=== PATIENT | male | born 1945 | race Caucasian/White ===

== ENCOUNTER 2020-11-24 11:32 | Outpatient (RCR) | payer MEDICARE, SELFPAY ==
[2020-11-24] MEDS: COVID-19 VACC, MRNA(PFIZER)/PF 30 MCG/0.3 ML SYRINGE IM (18:26)
[2020-12-15] MEDS: COVID-19 VACC, MRNA(PFIZER)/PF 30 MCG/0.3 ML SYRINGE IM (18:07)
== END 2021-02-28 23:59 ==
LOC: IMMUN 11:32
PROVIDERS: PCP Family Medicine; Visit Provider Family Medicine
DX: Z23 Encounter for immunization (principal)
CPT/HCPCS: 0001A; 0002A; 91300

== ENCOUNTER → 2021-05-11 12:42 | Outpatient (CLI) | payer MEDICARE, OTHER, SELFPAY ==
--- NOTE | 2021-05-11 12:49 | MRI_ITS ---
STUDY: MRI LUMBAR SPINE WITHOUT CONTRAST REASON FOR EXAM: Male, 76 years old. BACK PAIN and rt hip TECHNIQUE: Standardized fat and water weighted pulse sequences were obtained in the sagittal and axial planes. COMPARISON: None FINDINGS: T12-L1: Normal endplates. Mild disc desiccation. Normal bilateral facet joints. Normal central canal and bilateral lateral recesses. Normal bilateral intervertebral neural foramina. There is straightening of the normal lumbar lordosis. There is a levoscoliosis of the lumbar spine centered on L2. 1 cm rightward listhesis of L1 on L2. 4 mm leftward listhesis of L2 on L3. 6 mm leftward listhesis of L3 on L4. 4 mm leftward listhesis of L4 on L5. Normal conus medullaris that terminates at the level of L1. L1-2: Endplate edema. Disc bulge. Mild facet arthrosis. Crowded right lateral recess with mild to moderate right neural foraminal stenosis. No significant spinal canal stenosis. L2-3: Endplate edema. Disc bulge. Moderate right and mild left facet arthrosis. Carotid bilateral recess with mild to moderate neural foraminal stenosis. No spinal canal stenosis. L3-4: Endplate edema. Disc bulge. Moderate right and [id number] left facet arthrosis. Mild right neural foraminal stenosis. No spinal canal stenosis. L4-5: Normal endplates. Disc bulge. Moderate right and mild left facet arthrosis. Left lateral recess crowding and mild to moderate left neural foraminal stenosis. No spinal canal stenosis. L5-S1: Endplate edema. Disc bulge. Mild to moderate bilateral facet arthrosis. Moderate left and mild right neural foraminal stenosis. No spinal canal stenosis. Normal visualized sacral ala. Mild fatty infiltration of the paraspinous muscles. Partially demonstrated left renal cyst. MRI/Spine Lumbar (Routine) IMPRESSION: Extensive degenerative disease and levoscoliosis detailed above, including moderate neural foraminal stenosis on the right at L2-3 and L4-5, and on the left at L5-S1. No significant spinal canal stenosis. Electronically Signed: Russell Stanton MD at 6:19 EDT Tel , Service support ,
== END ==
PROVIDERS: PCP Physician Assistant; Referring Provider Anesthesiology Pain Medicine; Visit Provider Anesthesiology Pain Medicine
DX: M54.9 Dorsalgia, unspecified (principal); M79.606 Pain in leg, unspecified
CPT/HCPCS: 72148

== ENCOUNTER 2022-09-28 14:30 | Outpatient (RCR) | payer MEDICARE, OTHER, SELFPAY ==
--- NOTE | 2022-08-10 13:54 | HP.PTEVAL ---
Patient's Visit Information NAVA HEALY is a 77 year old M referred to Physical Therapy by HARI Nunez with a diagnosis of Parkinson's. Date of Evaluation: 08/10/22 Physical Therapist: MARY Solis - Visit Plan Frequency: 2x /Week Duration: 6 Weeks Plan: 2X/ week for 3 weeks for mat LB stretches and postural stretches, core stability, increase HR, dual tasking, gait training with HEP - Subjective In the several months his Dr and him have discussed PD as a diagnosis but can not get into see a neurologist in December. Pt is struggling with walking (walks with a golf club), spinal arthritis, skin disorders now, excessive drooling, double vision, itchy weeping eyes, Lots of joint problems. With day to day function he struggles with ambulation but sitting is even moderate pain. Until recently he would get back pain relief but not any more. Pt can not walk as long because he can not stand up straight because it hurts his back... with bending fw he has strain on the muscles of the back. Pt has a cat rescue and has 14 steps and chores to do. Stairs: He has a railing and goes up recip and goes down recip with a hand rail. Pt uses a golf club to walk up straight and does not want to use a cane to become dependent on it. He feels that sit to stand is ok for him. He has some exertion to get out of a car. He is still driving and lives alone. He does not do any exercises at this point. No PD meds. He has a tremor when he is trying to do something. 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 He struggles to roll over in bed. He does stretch his LB at home. He gets chiro adjustments now but that does not help now. - Pain LBP Pain Intensity (Out of 10): 5 - Objective Gait: Walks with decrease stride length, decrease arm swing, likes to shuffle his feet. LE MMT: R: hip flex 15.3, knee ext 22.3, knee flex 16.1. L: hip flex 14.3, knee ext 27.6, knee flex 12.6. Sit to [employer] insights lead 30 seconds: X 12. TU.71. 4 square: 11.36. Stairs: up and down stairs recip with 1 hand rail. FGA: 19. Dual tasking: standing opp arm and leg.... X 10 on each side with no mess up - Balance/Special Test Scores Functional Gait Assessment Score: 19 % Disability: 36.6700 Lower Extremity Functional Score: 21 - Goals Goal 1:: I HEP Goal Time Frame: 6-8 Weeks Goal 2:: Decrease back pain Goal Time Frame: 6-8 Weeks Goal 3:: Be able to walk with bigger longer strides and increase arm swing with not catching his feet. Goal Time Frame: 6-8 Weeks Goal 4:: Decrease TUG time to decrease fall risk Goal Time Frame: 6-8 Weeks - Rehabilitation Potential Rehabilitation Potential: Good - Anticipated Interventions Patient/Client Instruction: Educate patient on: Condition, Plan of Care For the Purpose of:: To decrease pain, To increase ROM, To improve nutrient delivery to tissue, To improve muscle performance and motor function, To improve ability to perform ADL's, To increase tolerance to activity/condition/position, To improve performance and independence with ADL's, To decrease level of supervision to perform tasks, To improve ability of physical actions for home/community/work/leisure, To improve gait and locomotor functions, To improve health of tissue, To decrease soft tissue restriction, To increase flexibility/ROM, To improve endurance, To improve balance, To improve safety with gait, To assume or resume ADL's Therapeutic Exercise to Include: Strength training, Endurance training, Balance training, Coordination, Body mechanics, Postural training, Flexibilty training, Gait and locomotor training, Neuromotor development, Passive ROM, Active ROM, Dynamic Lumbar Stabilization, Scapular Strength/Stabilization For the Purpose of:: To decrease pain, To increase ROM, To improve nutrient delivery to tissue, To increase oxygenation perfusion, To improve muscle performance and motor function, To improve ability to perform ADL's, To increase tolerance to activity/condition/position, To improve performance and independence with ADL's, To decrease level of supervision to perform tasks, To improve ability of physical actions for home/community/work/leisure, To improve gait and locomotor functions, To improve health of tissue, To decrease soft tissue restriction, To increase flexibility/ROM, To improve endurance, To improve balance, To improve safety with gait Functional Training to Include: Gait training For the Purpose of:: To decrease pain, To increase ROM, To improve nutrient delivery to tissue, To improve muscle performance and motor function, To improve ability to perform ADL's, To increase tolerance to activity/condition/position, To improve performance and independence with ADL's, To improve gait and locomotor functions, To improve health of tissue, To decrease soft tissue restriction, To increase flexibility/ROM, To improve endurance, To improve balance Thank you for the opportunity to evaluate your patient. For Medicare and Medicare HMO plans, please review the plan of care and approve it. It will need to be FAXED BACK to us at [phone] for Medicare purposes. For Medicare only, by signing this I certify the plan of care. Please let me know if there are questions or concerns regarding this plan of care. Physician Signature: Date:
--- NOTE | 2022-09-07 15:41 | HP.PTREVAL ---
HARI Nunez, It has been my pleasure to treat NAVA HEALY over the last 7 visits for Parkinson's. Please see the progress note below for an update on the physical therapy plan of care! Subjective: Pt is frustrated as he is not any better and he can not see the neurologist until December. He wants to add massage to his plan through self pay and do the massage and the PT in combination and see if it helps. He feels he has an underline back issue and the PD posture is not helping the situation. Objective/Function: Gait: Walk with flexed trunk decreased trunk rotation and no arm swing. He does walk more upright when cued to squeeze his shoulder blades together. Tu.41 Plan Plan: Continue to advance mat LB stretches and postural stretches, core stability, increase HR, dual tasking, gait training with HEP Balance/Gait/Functional tests - Balance/Special Test Scores Functional Gait Assessment Score: 19 % Disability: 36.6700 Lower Extremity Functional Score: 25 Goals Goal 1:: I HEP Goal Time Frame: 6-8 Weeks Goal Progress: Progressing Goal 2:: Decrease back pain Goal Time Frame: 6-8 Weeks Goal Progress: Not Progressing Goal 3:: Be able to walk with bigger longer strides and increase arm swing with not catching his feet. Goal Time Frame: 6-8 Weeks Goal 4:: Decrease TUG time to decrease fall risk (10.17) at eval Goal Time Frame: 6-8 Weeks Anticipated Interventions Patient/Client Instruction: Educate patient on: Condition, Plan of Care For the Purpose of:: To decrease pain, To increase ROM, To improve nutrient delivery to tissue, To improve muscle performance and motor function, To improve ability to perform ADL's, To increase tolerance to activity/condition/position, To improve performance and independence with ADL's, To decrease level of supervision to perform tasks, To improve ability of physical actions for home/community/work/leisure, To improve gait and locomotor functions, To improve health of tissue, To decrease soft tissue restriction, To increase flexibility/ROM, To improve endurance, To improve balance, To improve safety with gait, To assume or resume ADL's Therapeutic Exercise to Include: Strength training, Endurance training, Balance training, Coordination, Body mechanics, Postural training, Flexibilty training, Gait and locomotor training, Neuromotor development, Passive ROM, Active ROM, Dynamic Lumbar Stabilization, Scapular Strength/Stabilization For the Purpose of:: To decrease pain, To increase ROM, To improve nutrient delivery to tissue, To increase oxygenation perfusion, To improve muscle performance and motor function, To improve ability to perform ADL's, To increase tolerance to activity/condition/position, To improve performance and independence with ADL's, To decrease level of supervision to perform tasks, To improve ability of physical actions for home/community/work/leisure, To improve gait and locomotor functions, To improve health of tissue, To decrease soft tissue restriction, To increase flexibility/ROM, To improve endurance, To improve balance, To improve safety with gait Functional Training to Include: Gait training For the Purpose of:: To decrease pain, To increase ROM, To improve nutrient delivery to tissue, To improve muscle performance and motor function, To improve ability to perform ADL's, To increase tolerance to activity/condition/position, To improve performance and independence with ADL's, To improve gait and locomotor functions, To improve health of tissue, To decrease soft tissue restriction, To increase flexibility/ROM, To improve endurance, To improve balance Please do not hesitate to contact me at [phone] by phone or if you have questions or concerns regarding this new plan of care! Sincerely, Rebecca Valadez MPT
--- NOTE | 2022-09-28 15:06 | HP.PTDCSUM ---
It has been my pleasure to treat NAVA HEALY referred by HARI Nunez, with the diagnosis of Parkinson's for a total of 11 visit(s). Discharge Date: 09/28/22 Please see the following information for a summary of their discharge status. Subjective: Pt reports that he is no better. He has a neurologist appt in December and his back bothers him everyday and now his L hand and wrist. He went to an ortho Dr and he referred him to a pain specialist for injections in his L hand and wrist. Pt had an appt with the arthritis Dr and he did not go to them cause they do not deal with PD. Nobody looked at the idea that he has RA. LBP Pain Intensity (Out of 10): 8 Whole Body Discomfort Pain Intensity (Out of 10): 6 L hand pain Pain Intensity (Out of 10): 0 % Improvement: 0 Objective/Function: TU:07 (which is worse than when started PT). Sit to stand: needs to use UE and is difficult at times to stand up due to pain and weakness per subjective. Gait: walks with short strides with an upside down golf club. Pt is limited in progress by daily pain. He complains of back pain and now L wrist pain. Goal 1:: I HEP Goal Progress: Progressing Goal 2:: Decrease back pain Goal Progress: Not Progressing Goal 3:: Be able to walk with bigger longer strides and increase arm swing with not catching his feet. Goal Progress: Progressing Goal 4:: Decrease TUG time to decrease fall risk (10.17) at eval Goal Progress: Not Progressing Plan: DC PT back to physician Discharge Comments: DC PT back to physician. Pt is no better. If there are questions or concerns regarding this patient's physical therapy, please feel free to call me at [phone]. Thank you for the referral of this patient. Sincerely, Rebecca Valadez, MPT Balance/Gait/Functional tests - Balance/Special Test Scores Functional Gait Assessment Score: 19 % Disability: 36.6700 Lower Extremity Functional Score: 23
== END 2022-09-28 15:46 | disposition home or self-care (01) ==
LOC: PT 14:30
PROVIDERS: PCP Physician Assistant; Referring Provider Physician Assistant; Visit Provider Physician Assistant
DX: R25.9 Unspecified abnormal involuntary movements (principal)
CPT/HCPCS: 97110; 97161; 97530

== ENCOUNTER 2023-03-18 15:00 | Outpatient (RCR) | payer MEDICARE, OTHER, SELFPAY ==
--- NOTE | 2023-02-20 19:14 | HP.PTEVAL ---
Patient's Visit Information NAVA HEALY is a 77 year old M referred to Physical Therapy by Dr. Jordan Casas MD with a diagnosis of PD. Date of Evaluation: 02/20/23 Physical Therapist: MARY Solis - Visit Plan Frequency: 2x /Week Duration: 2 Months Plan: 2X/ week for 8 weeks for neutral spine core stability, hip flexor stretches and Quad stretches in prone, Prone prop back and neck extension stretches, postural exercises, gait training posture with detailed HEP to have full HEP starting with a few exercises each visit - Subjective Pt tried many things for his back including 12 injections with no pain. His main problem is his flexion posture and he wants to measure his FW flexion posture and wants to see if he will get any measurable improvement. His last injection was about a month ago and did not help at all. He has not really done any exercises that we did here in the past. He has pain when he is walking. He rates it as a 8/10. His pain across his Lower to mid back and around pelvis to thighs. Pt has about 4-5/10 pain in sitting. He has no N&T in the legs. - Pain back pain Pain Intensity (Out of 10): 5 Pain Intensity Range: 8 Comment: in sitting/ walking - Objective Gait: walks with flexed trunk, short stride, decreased heel to toe gait pattern, decreased trunk rotation and arm swing. Pt struggles with heel and toe raises (about 1/2 normal ROM). Standing up against the wall his R shoulder is 7 inches from the wall with knees as extended as possible. Standing up tall the pt struggles with getting his knees straight as well. Sit to stand: able but has to use chair seat and struggles and struggles with first standing balance. Trunk AROM: Standing up against the wall his R shoulder is 7 inches from the wall with knees as extended as possible, flexion to his B mid shins. LE MMT: R hip flex 11.1 and L 10.1 with arms at sides. R knee ext 12.3 and L 10.8. R knee flex 8.3 and L 5.5. R hip abd in s/L 4.8 and L 3.2. FGA: 19. Extreme tightness in B hip flexors/Quads. Tight DF - Balance/Special Test Scores Functional Gait Assessment Score: 19 % Disability: 36.6700 Lower Extremity Functional Score: 31 - Goals Goal 1:: I HEP Goal Time Frame: 6-8 Weeks Goal 2:: Increase LE strength (R hip flex 11.1 and L 10.1 with arms at sides. R knee ext 12.3 and L 10.8. R knee flex 8.3 and L 5.5. R hip abd in s/L 4.8 and L 3.2). Goal Time Frame: 6-8 Weeks Goal 3:: Increase posture to be able to stand up straighter against the wall with knees straight (at eval 7 inches from the wall shoulder) Goal Time Frame: 6-8 Weeks Goal 4:: Increase flexibility of B hip flexors Goal Time Frame: 6-8 Weeks Goal 5:: Decrease back pain to 2/10 with sitting Goal Time Frame: 6-8 Weeks - Rehabilitation Potential Rehabilitation Potential: Good - Anticipated Interventions Patient/Client Instruction: Educate patient on: Condition, Plan of Care For the Purpose of:: To decrease pain, To increase ROM, To improve nutrient delivery to tissue, To improve muscle performance and motor function, To improve ability to perform ADL's, To increase tolerance to activity/condition/position, To improve performance and independence with ADL's, To decrease level of supervision to perform tasks, To improve ability of physical actions for home/community/work/leisure, To improve gait and locomotor functions, To improve health of tissue, To decrease soft tissue restriction, To increase flexibility/ROM, To improve safety with gait Therapeutic Exercise to Include: Strength training, Balance training, Body mechanics, Postural training, Flexibilty training, Gait and locomotor training, Neuromotor development, Dynamic Lumbar Stabilization, Scapular Strength/Stabilization For the Purpose of:: To decrease pain, To increase ROM, To increase oxygenation perfusion, To improve muscle performance and motor function, To improve ability to perform ADL's, To increase tolerance to activity/condition/position, To improve performance and independence with ADL's, To decrease level of supervision to perform tasks, To improve ability of physical actions for home/community/work/leisure, To improve gait and locomotor functions, To improve health of tissue, To decrease soft tissue restriction, To increase flexibility/ROM, To improve endurance, To improve balance Functional Training to Include: Gait training For the Purpose of:: To improve gait and locomotor functions Thank you for the opportunity to evaluate your patient. For Medicare and Medicare HMO plans, please review the plan of care and approve it. It will need to be FAXED BACK to us at [phone] for Medicare purposes. For Medicare only, by signing this I certify the plan of care. Please let me know if there are questions or concerns regarding this plan of care. Physician Signature: Date:
--- NOTE | 2023-03-18 15:37 | HP.PTDCSUM ---
It has been my pleasure to treat NAVA HEALY referred by Dr. Jordan Casas MD, with the diagnosis of PD for a total of 6 visit(s). Discharge Date: 03/18/23 Please see the following information for a summary of their discharge status. Subjective: Pt reports that he his discomfort with his legs and LB. 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 He is going to do some resting and then start back on a program with Passive Exercises and then got o active to strengthening. He thinks that therapy irritated him more and he pays for it for a few days. Even passive stretching irritates him. He wants to take a break and see if he can calm down his pain at home with his own therapy at home. back pain Pain Intensity (Out of 10): 5 % Improvement: 20 Objective/Function: LE strength: R hip flex 7.2 and L 8.4 with arms at sides. R knee ext 19.4 and L 21.3. R knee flex 14.4 and L 11.5. R hip abd in s/L 12.4 and L 13.2. Standing up against the wall 7 inches away from the wall at the shoulder Goal 1:: I HEP Goal Progress: Goal Met Goal 2:: Increase LE strength (R hip flex 11.1 and L 10.1 with arms at sides. R knee ext 12.3 and L 10.8. R knee flex 8.3 and L 5.5. R hip abd in s/L 4.8 and L 3.2). Goal Progress: Goal Met Goal 3:: Increase posture to be able to stand up straighter against the wall with knees straight (at eval 7 inches from the wall shoulder) Goal Progress: Not Progressing Goal 4:: Increase flexibility of B hip flexors Goal Progress: Not Progressing Goal 5:: Decrease back pain to 2/10 with sitting Goal Progress: Goal Met Plan: Pt will Dr Morton in about a week and he will tell him his plan to rest for a week or two and see if that reduces his pain and then build on PROM to AROM to strengthening. ISABEL PT back to Dr Arshad Comments: ISABEL PT If there are questions or concerns regarding this patient's physical therapy, please feel free to call me at [phone]. Thank you for the referral of this patient. Sincerely, Rebecca Valadez, MPT Balance/Gait/Functional tests - Balance/Special Test Scores Functional Gait Assessment Score: 19 % Disability: 36.6700 Lower Extremity Functional Score: 36
== END 2023-03-18 19:00 | disposition home or self-care (01) ==
LOC: PT 15:00
PROVIDERS: PCP Physician Assistant; Referring Provider Anesthesiology Pain Medicine; Visit Provider Anesthesiology Pain Medicine
DX: M48.07 Spinal stenosis, lumbosacral region (principal)
CPT/HCPCS: 97110; 97161; 97530

== ENCOUNTER → 2023-11-18 | Outpatient (CLI) | payer MEDICARE, OTHER, SELFPAY ==
--- NOTE | 2023-11-18 14:45 | MRI_ITS ---
EXAM: MR LUMBAR SPINE WITHOUT INTRAVENOUS CONTRAST CLINICAL INDICATION: LOW BACK PAIN TECHNIQUE: Multiplanar and multisequence MR images of the lumbar spine without intravenous contrast. COMPARISON: No relevant prior studies available. FINDINGS: VERTEBRAE: Partially visualized degenerative changes in the cervical spine with straightening of the cervical lordosis, multilevel facet arthrosis, uncovertebral joint, and endplate osteophytosis, multilevel disc bulges with at least mild multilevel spinal canal and neural foraminal stenosis. Scoliotic curvature of the spine is identified. No spondylolysis or spondylolisthesis. No acute fracture. Multilevel endplate degenerative signal changes. SPINAL CORD: No significant abnormality. Normal position and signal intensity of the conus medullaris. SOFT TISSUES: No significant abnormality. KIDNEYS AND URETERS: Bilateral renal cysts are present for which no follow-up is indicated. STOMACH AND BOWEL: Diverticulosis. No overwhelming evidence of diverticulitis. REPRODUCTIVE: Prostatomegaly with prostate heterogeneity. DISCS/SPINAL CANAL/NEURAL FORAMINA: T12-L1: No significant abnormality. No significant spinal canal or neural foraminal stenosis. L1-L2: Disc height loss and disc desiccation. Disc bulge with superimposed central disc herniation and moderate facet arthrosis. Mild spinal canal stenosis and moderate right greater than left neural foraminal narrowing. L2-L3: Disc height loss and disc desiccation. Endplate osteophytosis and facet arthrosis. Disc bulge. Mild to moderate spinal canal stenosis, moderate right greater than left neural foraminal narrowing, and at least abutment of the right L3 nerve root. L3-L4: Disc height loss and disc desiccation. Endplate osteophytosis and facet arthrosis. Central disc herniation superimposed upon a disc bulge resulting in moderate spinal canal stenosis. Facet arthrosis contributes to moderate bilateral neural foraminal narrowing with right L3 nerve root impingement. Disc bulge with superimposed central disc herniation and moderate bilateral facet arthrosis. Moderate spinal canal stenosis. Mild to moderate bilateral neural foraminal narrowing. L4-L5: Disc bulge with superimposed left subarticular to foraminal disc herniation and severe bilateral facet arthrosis. Mild to moderate spinal canal stenosis. Moderate to severe left and moderate right neural foraminal narrowing. Left L4 and L5 nerve root impingement. L5-S1: Disc height loss and disc desiccation. Disc bulge. Moderate bilateral facet arthrosis. Mild spinal canal stenosis and severe bilateral neural foraminal narrowing. Bilateral L5 nerve root impingement. MRI/Spine Lumbar (Routine) IMPRESSION: 1. Scoliotic curvature and multilevel degenerative changes resulting in multilevel spinal canal and neural foraminal stenosis. Right L3, left L4, and bilateral L5 nerve root impingement impingement. Recommend spine surgery consultation. 2. Partially visualized degenerative changes in the cervical spine with straightening of the cervical lordosis, multilevel facet arthrosis, uncovertebral joint, and endplate osteophytosis, multilevel disc bulges with at least mild multilevel spinal canal and neural foraminal stenosis. If there is any for more detailed evaluation, dedicated imaging of the cervical spine is recommended. 3. Scoliotic curvature of the spine is identified. This should be correlated with examination and potentially weightbearing radiographs. 4. Prostatomegaly with prostate heterogeneity. Follow-up as clinically indicated. 5. Diverticulosis. No overwhelming evidence of diverticulitis. Electronically Signed: Sushant Masters DO at 0:17 EST ,
== END | disposition home or self-care (01) ==
LOC: MRI 14:32
PROVIDERS: PCP Physician Assistant; Referring Provider Orthopaedic Surgery; Visit Provider Orthopaedic Surgery
DX: M54.50 Low back pain, unspecified (principal)
CPT/HCPCS: 72148

== ENCOUNTER 2024-05-18 01:07 | Emergency (ER) | payer MEDICARE, OTHER, SELFPAY ==
[2024-05-18 01:09] VITALS: BP 111/91; PULSE 129; RESP 20; TEMP 36.7; O2SAT 98; BMI 17.2
--- NOTE | 2024-05-18 01:30 | RAD_ITS ---
INDICATION: pain MULTIPLE FALLS OVER LAST COUPLE DAYS EXAMINATION/TECHNIQUE: X-RAY - XR Pelvis 1 or 2 Views COMPARISON: No relevant prior comparison study available FINDINGS: No fracture demonstrated. Femoral heads are normal in contour. No dislocation at the hips. Degenerative changes at the lower lumbar spine. RAD/Pelvis 1 or 2 Views IMPRESSION: No evidence of fracture. Electronically Signed: Nicole Sommer MD at 4:58 EDT ,
--- NOTE | 2024-05-18 01:30 | RAD_ITS ---
INDICATION: pain MULTIPLE FALLS OVER LAST COUPLE DAYS EXAMINATION/TECHNIQUE: X-RAY - XR Spine Thoracic 3 Views COMPARISON: FINDINGS: The vertebral bodies are normal in height. No definite fracture demonstrated. No subluxation. Mild curvature convex right. No paravertebral soft tissue mass identified. RAD/Thoracic Spine 3 Views IMPRESSION: No evidence of fracture or subluxation. Electronically Signed: Nicole Sommer MD at 5:00 EDT ,
[2024-05-18] MEDS: 0.9% Normal Saline (1000mL) 1,000 ML 999 ML IV (01:38)
[2024-05-18 01:49] LABS: Absolute Lymphocyte Count 1.21 X10^3/uL (0.83-4.51); Absolute Neutrophil Count 6.5 X10^3/uL (2.0-7.7); Basophil% 1.2 % (0-1); Eosinophil# 0.07 X10^3/uL; Eosinophils% 0.8 % (0-5); Hematocrit 42.5 % (40-54); Hemoglobin 13.9 g/dL (13.0-16.5); Lymphocyte # 1.21 X10^3/ul (0.83-4.51); Lymphocyte % 14.3 % (19-41); Mean Corp Hgb Conc 32.7 g/dL (32-36); Mean Corpuscular Hgb 32.9 pg (27.0-32.0); Mean Corpuscular Volume 100.7 fL (80-94); Mean Platelet Vol. 10.1 fl (6.2-12.0); Monocyte# 0.51 X10^3/uL; NRBC Flagged by Analyzer 0 % (0-5); Neutrophil # 6.54 X10^3/uL (2.7-7.7); Neutrophil % 77.3 % (47-70); Platelet Count 254 K/mm3 (150-450); RBC Distribution Width CV 12.7 % (11.6-14.6); RBC Distribution Width SD 47.1 fl (35.1-43.9); Red Blood Count 4.22 M/mm3 (4.6-6.2); White Blood Count 8.5 K/mm3 (4.4-11.0)
--- NOTE | 2024-05-18 02:00 | RAD_ITS ---
INDICATION: pain MULTIPLE FALLS OVER LAST COUPLE DAYS EXAMINATION/TECHNIQUE: X-RAY - LEFT XR Femur Min 2 Views 4 VIEWS COMPARISON: No relevant prior comparison study available FINDINGS: BONES: No fracture demonstrated. JOINTS: No dislocation. SOFT TISSUES: Unremarkable. RAD/Femur Min 2 Views IMPRESSION: No evidence of fracture. Electronically Signed: Nicole Sommer MD at 4:59 EDT ,
[2024-05-18 02:14] LABS: Anion Gap 4 (5-15); BUN 18 mg/dL (7-18); BUN/Creat Ratio 14.5 RATIO (10-20); Calcium,Total 9.3 mg/dL (8.5-10.1); Chloride 106 mmol/L (98-107); Creatinine, Serum 1.24 mg/dL (0.70-1.30); EST Glomerular Filtration Rate 60 mL/min (>60); Est Glom Filt Rate - Afr Amer 72 mL/min (>60); Glucose 118 mg/dL (74-106); Magnesium 2.7 mg/dL (1.6-2.6); Potassium 4.3 mmol/L (3.5-5.1); Sodium Level 140 mmol/L (136-145)
[2024-05-18 03:08] VITALS: BP 155/99; PULSE 92; RESP 18; O2SAT 92
--- NOTE | 2024-05-18 03:41 | EDS_ITS ---
HPI History of Present Illness Chief Complaint: General Illness Informant: patient and EMS Narrative Narrative: Patient is a 79-year-old male with past medical history of Parkinson's disease. He states he does not take medication for it as he cannot deal with the side effects. He also has a history of hypothyroidism. He states he has been having increasing bouts of generalized weakness and difficulty walking. He reports that yesterday he was trying to go up the stairs while holding a few of his cats and he lost his balance and fell backwards striking the left side of his body against a wall. He denies striking his head or any loss of consciousness or history of bleeding disorder or blood thinner use. He states he has had pain in the left shoulder region as well as the left hip/leg. He reports that since that time he has had even further difficulty ambulating/getting around his house and therefore EMS was contacted [facility] Medical History (Updated 05/19/24 @ 02:[address] 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 Home Medications ?Medication ?Instructions ?Recorded ?Last Taken ?Type eekbfay-wckwcswibcjeo-ybrjgowz 250 1 tab PO ONCE 09/06/22 Unknown History mg-250 mg-65 mg tablet (Excedrin Extra Strength) levothyroxine 50 mcg tablet 50 mcg PO DAILY 05/18/24 Unknown History Allergy/AdvReac Type Severity Reaction Status Date / Time No Known Allergies Allergy Verified 05/18/24 01:09 Family History Other Arthritis Cancer Social History Smoking Status: Former smoker alcohol intake: never substance use type: does not use what type of physical activity do you participate in: none ROS ROS ED Constitutional Constitutional ED: Denies chills or fever(s) Eyes Eyes: Denies blurry vision or change in vision ENT ENT ED: Denies sore throat Cardiovascular Cardiovascular: Denies chest pain or palpitations Respiratory/Chest Respiratory/Chest: Denies cough or dyspnea Gastrointestinal Gastrointestinal: Denies abdominal pain, diarrhea, nausea or vomiting Genitourinary Genitourinary ED: Denies dysuria Musculoskeletal Musculoskeletal: Reports back pain and myalgias; Denies neck pain Integumentary Denies Abrasions or rash Neurologic Neurologic: Reports weakness; Denies headache(s) or paresthesias Hematologic/Lymphatic Hematologic/Lymphatic: Denies easy bleeding or easy bruising EXAM Physical Exam Const Vital Signs: 05/18/24 03:08 Pulse Rate 92 Respiratory Rate 18 Blood Pressure 155/99 H Blood Pressure Mean 117 Pulse Ox 92 Oxygen Delivery Method Room Air Positive well developed, cachectic and unkempt General Appearance ED: unkempt, well developed and cachectic; Negative for pallor Nutritional Appearance: cachectic HEENT Reports dry mucous membranes HEENT Narrative: Normocephalic atraumatic No signs of depressed or basilar skull fracture Mouth ED: Yes dry mucous membranes Mouth: dry mucous membranes Eyes PERRL and EOMs intact bilaterally General Eye ED: Negative for scleral icterus Neck supple Neck Narrative: No bony deformity or step-off of the cervical spine no midline tenderness to palpation Chest Wall palpation of chest normal Chest Narrative: No bony deformity or crepitance noted Resp normal respiratory effort and clear to auscultation bilaterally Resp Narrative: Breath sounds are diminished throughout but overall clear to auscultation without signs of respiratory distress Cardio regular rhythm Rate: tachycardic and other Other Details: Tachycardic rate with regular rhythm GI normal to inspection, nondistended, normoactive bowel sounds, non-tender, non- distended and no masses Auscultation: normoactive bowel sounds Palpation: soft Back/Spine Back/Spine Narrative: No bony deformity or step-off of the thoracic or lumbar spine. There is pain on palpation of the upper lumbar vertebral region. No overlying abrasions or ecchymosis Extremity Extremity Narrative: Pelvis is stable there is no shortening or external rotation of either lower extremity. There is no obvious bony deformity or joint effusion. There is full passive range of motion without pain. Active range of motion is decreased secondary to weakness. Compartments are soft and compressible going against compartment syndrome. No ligamentous or tendon laxity noted Neuro oriented x3 and CN's II-XII intact bilaterally Sensorium / Orientation: alert Psych Psych Narrative: Patient has a flat affect Appearance: unkempt Skin no rashes or lesions noted Skin Narrative: No abrasions or ecchymosis No overlying erythema or warmth to suggest infection General Skin Exam: Negative for jaundice or pallor MDM MDM MDM Narrative Medical decision making narrative: Patient arrived to the ER mildly tachycardic but otherwise with stable vitals. He reported that he has been having increasing generalized weakness and therefore differential diagnosis could be related to acute kidney injury versus severe electrolyte abnormality or hypothyroidism as he does have a history of this as well as physical exam findings consistent with dehydration. He did not strike his head or have loss of consciousness he is not on a blood thinner nor has a history of bleeding disorder so I felt no need for head or cervical spine CT. with pain in the mid upper back there is concern for thoracic compression fracture and with pain in the left leg there is concern for pubic rami fracture versus femoral neck fracture versus dislocation. X-rays were obtained which revealed no acute findings. Lab work showed no clinically significant lab abnormalities. After IV hydration the patient did report feeling better and his vital signs improved. He was able to ambulate with a steady gait in the ER by himself. Therefore at this time as he does not have XOCHITL or clinically significant electrolyte abnormality there are no signs of trauma on exam or imaging and he is able to ambulate there is no need for admission and he will be discharged home EMS did report patient lives in [facility] and the patient is asking for potential help with his activities of daily living and therefore social work consult will be placed. History & Record Review Discussion w/independent historian: EMS personnel and Patient Lab Data Attestation: I reviewed the patient's lab results. Labs: Laboratory Results - last 24 hr 05/18/24 01:43 Sodium 140 Potassium 4.3 Chloride 106 Carbon Dioxide 30.0 Anion Gap 4 L BUN 18 Creatinine 1.24 Estim Creat Clear Calc 38.40 Est GFR (MDRD) Af Amer 72 Est GFR (MDRD) Non-Af 60 BUN/Creatinine Ratio 14.5 Glucose 118 H Calcium 9.3 Magnesium 2.7 H TSH 1.140 Radiography Diagnostic Testing: Clinical Impression(s) from Imaging Studies Pelvis X-Ray 05/18/24 01:30 IMPRESSION: No evidence of fracture. Electronically Signed: Nicole Sommer MD at 4:58 EDT , Thoracic Spine X-Ray 05/18/24 01:30 IMPRESSION: No evidence of fracture or subluxation. Electronically Signed: Nicole Sommer MD at 5:00 EDT , Femur X-Ray 05/18/24 02:00 IMPRESSION: No evidence of fracture. Electronically Signed: Nicole Sommer MD at 4:59 EDT , 1 view pelvis x-ray as interpreted by the emergency medicine physician reveals osteoarthritic changes without acute fracture or dislocation Left femur x-ray as interpreted by the emergency medicine physician also reveals osteoarthritic changes without fracture or dislocation or joint effusion Thoracic spine x-ray as interpreted by the emergency medicine physician reveals osteoarthritic changes without compression fracture or spondylolisthesis Discharge Plan Triage Chief Complaint: General Illness ED Provider: Todd Burnham Dx/Rx/DC Orders Clinical Impression: Parkinsons disease, Generalized weakness, Mild dehydration Instructions: Parkinson Disease Mobility Tips, ED Weakness (Uncertain Cause) Prescriptions: No Action Excedrin Extra Strength 250-250-65 mg tablet 1 tab PO ONCE levothyroxine 50 mcg tablet 50 mcg PO DAILY Primary Care Provider: Basilio Abraham Referrals: Basilio Abraham PA [Primary Care Provider] - Print Language: Macedonian Disposition Disposition: Home, Self Care Discharge Date/Time: 05/18/24 04:18
== END 2024-05-18 04:18 | disposition home or self-care (01) ==
PROVIDERS: Emergency Provider Emergency Medicine; PCP Physician Assistant; Visit Provider Emergency Medicine
DX: E86.0 Dehydration (principal); G20.A1 Parkinson's disease without dyskinesia, without mention of fluctuations; M54.9 Dorsalgia, unspecified; M25.512 Pain in left shoulder; M25.552 Pain in left hip; E03.9 Hypothyroidism, unspecified; M18.12 Unilateral primary osteoarthritis of first carpometacarpal joint, left hand; Z87.891 Personal history of nicotine dependence
CPT/HCPCS: 72072; 72170; 73552; 80048; 83735; 84443; 85025; 96360; 96361; 99283; J7030; A4216

== ENCOUNTER 2025-04-04 22:05 | Inpatient (IN) | payer MEDICARE, OTHER, SELFPAY ==
[2025-04-04 22:06] VITALS: BP 104/90; PULSE 126; RESP 28; TEMP 36.6; O2SAT 99; BMI 16.4
--- NOTE | 2025-04-04 22:10 | EKG12_ITS ---
Test Reason : DYSRHYTHMIA Blood Pressure : */* mmHG Vent. Rate : 85 BPM Atrial Rate : 85 BPM P-R Int : 152 ms QRS Dur : 110 ms QT Int : 392 ms P-R-T Axes : 43 44 11 degrees QTcB Int : 466 ms Sinus rhythm with occasional Premature ventricular complexes Possible Left atrial enlargement Incomplete right bundle branch block Borderline ECG Confirmed by Jr Call ([id number]), editor publications OLGA HOOD ([id number]) on 04/05/2025 1:11:38 PM Referred By: RAFA Confirmed By: Jr Call
[2025-04-04 23:05] VITALS: BP 132/97; PULSE 86; RESP 17; O2SAT 98
--- OUTSIDE RECORDS SUMMARY | 2025-04-04 23:50 | XMS RPT_ITS | CCD ---
Author Organization [facility] Care Team Providers Care Sketch Artist Name Role Phone Abraham PA-CBasilio Primary Care Provider Abraham PA, PA Basilio QiuMaximilian Primary Care Provider Abraham PA, PA Basilio Yao Referring Provider HARI Kyle Attending Provider Dr. Mikael Chapman Attending Provider MD Dino Huffman Attending Provider Abraham PA-C, Basilio Yao Primary Care Provider [phone] Abraham PA, PA Basilio QiuMaximilian Primary Care Provider [phone] Abraham PA, PA Basilio Yao Referring Provider Dr. Eddi Larson Attending Provider Dr. Mikael Chapman Attending Provider Jarad NORIEGA-C, Basilio Yao Primary Care Provider Arbaham PA, M Maximilian Primary Care Unavailable Mikael Chapman Attending Unavailable Eddi Larson Referring Unavailable Abraham PABasilio Primary Care Unavailable Eddi Larson Attending Unavailable Abraham PA, M Maximilian Primary Care Unavailable Todd Burnham Attending Unavailable Abraham PA, M Maximilian Primary Care Unavailable Abraham PA M Maximilian Referring Unavailable Eddi Larson Attending Unavailable Lenin LABORER GOLF COURSE.Viola STORY Primary Care Provider Bryceagen LABORER GOLF COURSE.TRADE EMBALMER, Viola Primary Care Provider Abraham PA-CHawa Primary Care Provider Unavailable Suppan LABORER GOLF COURSE.JEZ, Shakila Jha Unavailable Salvador Justin MD Unavailable Suppan LABORER GOLF COURSE.TRADE EMBALMER, Shakila A Unavailable [phone] Suppan LABORER GOLF COURSE.TRADE EMBALMER, Shakila A Unavailable [phone] Suppan LABORER GOLF COURSE.JEZ, Shakila A Unavailable Salvador Justin MD Unavailable [phone] HAAGEN, VIOLA Attending Unavailable HAAGEN, VIOLA Primary Care Unavailable HAAGEN, VIOLA Attending Unavailable HAAGEN, VIOLA Primary Care Unavailable HAAGEN, VIOLA Attending Unavailable HAAGEN, VIOLA Primary Care Unavailable HAAGEN, VIOLA Attending Unavailable HAAGEN, VIOLA Primary Care Unavailable HAAGEN, VIOLA Referring Unavailable HAAGEN, VIOLA Primary Care Unavailable HAAGEN, VIOLA Attending Unavailable ABRAHAMHAWA Primary Care Unavailable HAAGEN, VIOLA Referring Unavailable HAAGEN, VIOLA Primary Care Unavailable KIRSTIN ALDRIDGE Attending Unavailable ABRAHAMHAWA Referring Unavailable HAAGEN, VIOLA Primary Care Unavailable ABRAHAMHAWA Referring Unavailable ABRAHAMHAWA Primary Care Unavailable HAAGEN, VIOLA Attending Unavailable HAAGEN, VIOLA Primary Care Unavailable Allergies Allergy Classification Reported Allergen(s) Allergy Type Date of Onset Reaction(s) Facility (20 sources) Banana Extract; Translations: [BANANA] Drug Allergy 10-13-2018 GI Upset [facility] Work Phone: Medications Current Medications Medication Drug Class(es) Dates Sig (Normalized) Sig (Original) acetaminophen 250 mg / aspirin 250 mg / caffeine 65 mg oral tablet (20 sources) Platelet Aggregation Inhibitor, Nonsteroidal Anti-inflammatory Drug, Central Nervous System Stimulant, Methylxanthine Start: 09-06-2022 take 1 tablet by mouth once Aspirin-Acetamin ophen-Caffeine (Excedrin Extra Strength) 250-250-65 mg tablet Active 1 TABLET PO ONCE September 06, 2022 12:00am End: 03-08-2022 take 1 tablet by mouth every six hours as needed Zixquwk-Kaypydnkrlkju-Qynlbehi (EXCEDRIN ) 250-250-65 mg per tablet Take 1 tablet by mouth every 6 hours as needed. Active Comment on above: Take 1 tablet by vinny th every 6 hours as needed. levothyroxine sodium 0.05 mg oral tablet (20 sources) l-Thyroxine Start: take 13 ug by mouth once daily Levothyroxine Active 13 MCG PO DAILY August 02, 2022 12:00am Start: 01-25-2020 End: 10-14-2024 take 1 tablet by mouth once daily in the morning for thyroid dysfunction levothyroxine (SYNTHROID) 50 mcg tablet Indications: Acquired hypothyroidism take 1 tablet by mouth every morning ON AN EMPTY STOMACH FOR THYROID 90 tablet 1 10/14/2024 Active Comment on above: take 1 tablet by vinny th every morning ON AN EMPTY STOMACH FOR THYROID methylPREDNISolone (2 sources) Corticosteroid Start: 2023 End: 2023 methylPREDNISolone (MEDROL, LUCIANO,) 4 mg Dose-Pack Indications: Lumbar foraminal stenosis , Chronic pain syndrome Follow dosing instructions, take with food. 21 tablet 0 12/30/2023 01/05/2024 Active Comment on above: Follow dosing instru ctions, take with food. mirtazapine 15 mg oral tablet (3 sources) Start: 2024 take 1 tablet by mouth once daily at bedtime mirtazapine (REMERON) 15 mg tablet Indications: Chronic pain syndrome Take 1 tablet by mouth daily at bedtime. 30 tablet 1 01/20/2025 Active tiZANidine 2 mg oral tablet (4 sources) Central alpha-2 Adrenergic Agonist Start: 2024 End: 2024 take 1 tablet by mouth twice daily as needed tiZANidine (ZANAFLEX) 2 mg tablet Indications: Chronic pain syndrome , Lumbar foraminal stenosis Take 2 tablets by mouth two times a day as needed (for pain). 30 tablet 1 02/19/2025 Active Vitamin B Complex (20 sources) vitamin B comple x (B COMPLEX ORAL) Take by mouth. Active vitamin B comple x (B COMPLEX ORAL) Take by mouth. 0 Active Comment on above: Take by mouth. Completed/Discontinued Medications Medication Drug Class(es) Dates Sig (Normalized) Sig (Original) baclofen 10 mg oral tablet (2 sources) gamma-Aminobutyric Acid-ergic Agonist Start: 05-21-2023 End: 06-11-2023 take 1 tablet by mouth every eight hours as needed baclofen 10 mg tablet Take 1 tablet by mouth three times daily as needed (muscle spasms). 90 tablet 2 05/21/2023 06/11/2023 Discontinued (Side Effects) Comment on above: Take 1 tablet by vinny th three times daily as needed (muscle spasms). carbidopa 25 mg / levodopa 100 mg oral tablet (9 sources) Aromatic Amino Acid Decarboxylation Inhibitor, Aromatic Amino Acid Start: 07-29-2023 End: 12-02-2023 carbidopa-levodopa (SINEMET) 25-100 mg per tablet Indications: Parkinsonian features , Unstable gait Take 1/2 tablet 4PM, 8PM and MN. If no side effects and no improvement of symptoms after 1 week, then recommend increasing does to 1 tablet at 4PM, 8PM and MN. 90 tablet 2 07/29/2023 12/02/2023 Discontinued Start: 12-27-2022 End: 07-29-2023 take 1 tablet by mouth three times daily carbidopa-levodopa (SINEMET) 25-100 mg per tablet Take 1 tablet by mouth three times daily. 90 tablet 2 12/27/2022 07/29/2023 Discontinued Comment on above: Take 1 tablet by vinny th three times daily. Take 1/2 tablet 4PM, 8PM and MN. If no side effects and no improvement of symptoms after 1 week, then recommend increasing does to 1 tablet at 4PM, 8PM and MN. DULoxetine 20 mg delayed release oral capsule (9 sources) Serotonin and Norepinephrine Reuptake Inhibitor Start: 10-28-19 End: 01-21-20 take 1 capsule by mouth once daily DULoxetine (CYMBALTA) 20 mg capsule Indications: Other chronic pain Take 1 capsule by mouth once daily. 30 capsule 1 10/28/2024 01/20/2025 Discontinued gabapentin 100 mg oral capsule (20 sources) Anti-epileptic Agent Start: 12-02-19 End: 04-06-20 gabapentin (NEURONTIN) 100 mg capsule Titrate as discussed to three times a day 90 capsule 0 12/02/2023 04/06/2024 Discontinued Start: 05-08-2022 End: 10-30-2022 take 1 capsule by mouth three times daily gabapentin (NEURONTIN) 300 mg capsule Take 1 capsule by mouth three times daily for 90 days. 90 capsule 2 05/08/2022 10/30/2022 Discontinued (Discontinued by Patient) Start: 04-05-2022 End: 07-04-2022 take 1 capsule by mouth three times daily gabapentin (NEURONTIN) 100 mg capsule Take 1 capsule by mouth three times daily for 90 days. 90 capsule 2 04/05/2022 07/04/2022 Active Comment on above: Take 1 capsule by [facility] three times daily for 90 days. Titrate as discussed to three times a day glycopyrrolate 1 mg oral tablet (7 sources) Start: End: take 1 tablet by mouth twice daily as needed glycopyrrolate (ROBINUL) 1 mg tablet Take 1 tablet by mouth two times a day. As needed for salivation 60 tablet 10/30/2024 01/20/2025 Discontinued hydrocortisone 25 mg/ml topical cream (1 source) Corticosteroid Start: End: hydrocortisone 2.5 % cream Indications: External hemorrhoid Apply 1 application to affected area twice daily. Location: rectally/topical 3.5 g 03/13/2019 05/15/2021 Discontinued (Course of therapy completed) melatonin 1 mg oral tablet (20 sources) End: melatonin 1 mg chew Take by mouth. 01/20/2025 Discontinued (Other) Comment on above: Take by mouth. meloxicam 15 mg oral tablet (4 sources) Nonsteroidal Anti-inflammatory Drug Start: End: take 1 tablet by mouth once daily at mealtime meloxicam (MOBIC) 15 mg tablet Take 1 tablet by mouth once daily. With food. 30 tablet 2 03/08/2022 05/03/2022 Discontinued Start: 08-25-2019 End: 05-15-2021 take 1 tablet by mouth once daily at mealtime meloxicam (MOBIC) 15 mg tablet Indications: Hip pain, right , Chronic pain of both knees Take 1 tablet by mouth once daily. With food. 30 tablet 1 08/25/2019 05/15/2021 Discontinued (Discontinued by Patient) Comment on above: Take [address] [facility] once daily. With food. piroxicam 10 mg oral capsule (4 sources) Nonsteroidal Anti-inflammatory Drug Start: 06-11-20 End: 12-02-19 take 1 capsule by mouth once daily piroxicam (FELDENE) 10 mg capsule Take 1 capsule by mouth once daily. 15 capsule 0 06/11/2023 12/02/2023 Discontinued Comment on above: Take 1 capsule by [facility] once daily. triamcinolone acetonide 0.0005 mg/mg topical ointment (20 sources) Corticosteroid End: 04-06-20 Triamcinolone Acetonide 0.05 % oint Apply to affected area. 0 04/06/2024 Discontinued (Other) Comment on above: Apply to affected ar ea. Problems Active Problems Problem Classification Problem Date Documented Date Episodic/Chronic Blindness and vision defects (3 sources) Diplopia; Translations: [Diplopia] Episodic Delirium, dementia, and amnestic and other cognitive disorders (1 source) Senile asthenia; Translations: [Age-related physical debility] 12-30-2023 Chronic Diseases of mouth; excluding dental (2 sources) Dribbling from mouth; Translations: [Disturbances of salivary secretion] Onset: 12-02-2024 12-03-2024 Episodic Heart valve disorders (17 sources) Non-rheumatic mitral regurgitation ; Translations: [Nonrheumatic mitral (valve) insufficiency] Onset: 08-18-2024 08-18-2024 Chronic Nutritional deficiencies (3 sources) Vitamin D deficiency; Translations: [Vitamin D deficiency, unspecified] Onset: 10-28-2024 05-22-2023 Chronic Nutritional deficiencies (1 source) Diet poor; Translations: [Nutritional deficiency, unspecified] 05-22-2023 Episodic Osteoarthritis (7 sources) Primary gonarthrosis, bilateral; Translations: [Bilateral primary osteoarthritis of knee] Chronic Osteoporosis (2 sources) Osteoporosis; Translations: [Age-related osteoporosis without current pathological fracture] 11-07-2023 Chronic Other acquired deformities (1 source) Levoscoliosis; Translations: [Other forms of scoliosis, site unspecified] Chronic Other acquired deformities (1 source) Degenerative disorder of musculoskeletal system; Translations: [Other secondary scoliosis, site unspecified] 11-07-2023 Chronic Other acquired deformities (1 source) Other secondary scoliosis, site unspecified; Translations: [Scoliosis [and kyphoscoliosis], idiopathic] 11-07-2023 Chronic Other connective tissue disease (1 source) Pain of left hand; Translations: [Pain in left hand] Episodic Other connective tissue disease (4 sources) Muscle pain; Translations: [Myalgia, unspecified site] 05-21-2023 Episodic Other connective tissue disease (1 source) Other symptoms and signs involving the nervous system; Translations: [Parkinsonian features] Onset: 02-19-2025 Episodic Other hereditary and degenerative nervous system conditions (1 source) Restless legs; Translations: [Restless legs syndrome] 04-06-2024 Chronic Other hereditary and degenerative nervous system conditions (1 source) Restless legs syndrome; Translations: [Restless legs] Onset: 04-06-2024 Chronic Other inflammatory condition of skin (1 source) Psoriasis; Translations: [Psoriasis, unspecified] Chronic Other nervous system disorders (2 sources) Meralgia paresthetica of right leg; Translations: [Meralgia paresthetica, right lower limb] Chronic Other nervous system disorders (3 sources) Chronic pain syndrome; Translations: [Chronic pain syndrome] 12-30-2023 Chronic Other nervous system disorders (2 sources) Chronic pain; Translations: [Other chronic pain] 10-28-2024 Chronic Other nervous system disorders (1 source) Chronic pain syndrome; Translations: [Chronic pain syndrome] Onset: 02-19-2025 Chronic Other nervous system disorders (1 source) Other chronic pain; Translations: [Other chronic pain] Onset: 10-28-2024 Chronic Other nervous system disorders (12 sources) Parkinsonian features; Translations: [Unspecified abnormal involuntary movements] Episodic Other nervous system disorders (5 sources) Abnormal gait; Translations: [Unsteadiness on feet] Episodic Other nervous system disorders (2 sources) Muscle fasciculation; Translations: [Fasciculation] 07-29-2023 Episodic Other non-traumatic joint disorders (1 source) Pain of left wrist; Translations: [Pain in left wrist] Episodic Other non-traumatic joint disorders (1 source) Multiple joint pain; Translations: [Pain in unspecified joint] 05-21-2023 Episodic Other nutritional; endocrine; and metabolic disorders (5 sources) Underweight; Translations: [Underweight] Episodic Other nutritional; endocrine; and metabolic disorders (2 sources) Weight loss; Translations: [Abnormal weight loss] 10-28-2024 Episodic Other nutritional; endocrine; and metabolic disorders (2 sources) Weight decreased; Translations: [Abnormal weight loss] 01-20-2025 Episodic Other skin disorders (1 source) Involution of toenail; Translations: [Other nail disorders] 12-02-2023 Episodic Parkinson`s disease (20 sources) Parkinson's disease; Translations: [Parkinson's disease] Onset: 10-30-2022 Chronic Parkinson`s disease (2 sources) Parkinson`s disease; Translations: [Parkinson's disease with dyskinesia and fluctuating manifestations (HCC)] Onset: 10-30-2022 Residual codes; unclassified (1 source) FH: Aortic aneurysm; Translations: [Family history of ischemic heart disease and other diseases of the circulatory system] 04-06-2024 Episodic Residual codes; unclassified (1 source) Illness, unspecified; Translations: [Illness, unspecified] Onset: 06-11-2024 Episodic Spondylosis; intervertebral disc disorders; other back problems (20 sources) Degeneration of lumbar intervertebral disc; Translations: [Other intervertebral disc degeneration, lumbar region] Onset: 10-13-2018 10-13-2018 Chronic Thyroid disorders (20 sources) Acquired hypothyroidism; Translations: [Hypothyroidism, unspecified] Onset: 05-06-2016 05-06-2016 Chronic Transient cerebral ischemia (2 sources) Cerebral ischemia; Translations: [Transient cerebral ischemic attack, unspecified] Chronic Unclassified (1 source) Low back pain, unspecified; Translations: [Low back pain, unspecified] Onset: 11-23-2023 Unclassified (1 source) Lumbar pain; Translations: [Lumbar pain] Onset: 10-27-2024 Past or Other Problems Problem Classification Problem Date Documented Da te Episodic/Chronic Cardiac dysrhythmias (2 sources) Palpitations; Translations: [Palpitations] Onset: 04-06-2024 04-06-2024 Episodic Conditions associated with dizziness or vertigo (4 sources) Vertigo; Translations: [Dizziness and giddiness] Onset: 10-27-2024 Episodic Immunizations and screening for infectious disease (1 source) Encounter for immunization; Translations: [Encounter for immunization] Onset: 07-28-2024 Episodic Malaise and fatigue (6 sources) Asthenia; Translations: [Weakness] Onset: 10-28-2024 07-29-2023 Episodic Other connective tissue disease (1 source) Myalgia, unspecified site; Translations: [Myalgias] Onset: 10-27-2024 Episodic Other inflammatory condition of skin (2 sources) Pruritus, unspecified; Translations: [Unspecified pruritic disorder] Onset: 04-06-2024 04-06-2024 Episodic Other nervous system disorders (1 source) Unsteadiness on feet; Translations: [Unstable gait] Onset: 10-27-2024 Episodic Other nutritional; endocrine; and metabolic disorders (1 source) Abnormal weight loss; Translations: [Weight loss] Onset: 10-28-2024 Episodic Other nutritional; endocrine; and metabolic disorders (1 source) Underweight; Translations: [Underweight] Onset: 04-06-2024 Episodic Other screening for suspected conditions (not mental disorders or infectious disease) (6 sources) Patient encounter status; Translations: [Encounter for screening for malignant neoplasm of prostate] Onset: 04-06-2024 Episodic Residual codes; unclassified (1 source) Family history of ischemic heart disease and other diseases of the circulatory system; Translations: [Family hx of aortic aneurysm] Onset: 04-06-2024 Episodic Spondylosis; intervertebral disc disorders; other back problems (20 sources) Stenosis of lumbar vertebral foramen; Translations: [Spinal stenosis, lumbar region without neurogenic claudication] Onset: 05-11-2021 05-17-2021 Episodic Results Test Name Value Interpretation Reference Range Facility [facility] 02-19-2025 [facility] NAVA HEALY Hina ([id number]) 1945 M Date Time Provider Department 02/19/25 2:20 PM VIOLA PHELPS [facility] During your visit today, we recorded the following information about you: Pulse Respiration Blood pressure Weight 80/minute 16/minute 107/70 54.4 kg Viola Phelps APRN.CNP 02/19/2025 5:45 PM Signed This is a 79 year old male who presents today with: Patient presents with: Recheck: 1 month follow up HISTORY OF PRESENT ILLNESS: Nava Healy is a 79 year old male. Patient presents with: Recheck: 1 month follow up Pt presents today for 1 month follow up. Weight loss Stable. He is taking boost supplement. Continues to try to eat a good meal daily. Also snacks. Chronic pain. Tried the tizanidine. Refers did not help, but no side effects. He did not start the Remeron. Still considering assisted living. Reports just not there yet. PAST MEDICAL HISTORY: PAST MEDICAL HISTORY Diagnosis Date Hypothyroidism (acquired) age 68 PAST SURGICAL HISTORY Procedure Laterality Date TONSILLECTOMY AND ADENOIDECTOMY HX ALLERGIES Banana MEDICATIONS Current Outpatient Medications Medication Sig mirtazapine (REMERON) 15 mg tablet Take 1 tablet by mouth daily at bedtime. tiZANidine (ZANAFLEX) 2 mg tablet Take 1 tablet by mouth two times a day as needed (for pain). levothyroxine (SYNTHROID) 50 mcg tablet take 1 tablet by mouth every morning ON AN EMPTY STOMACH FOR THYROID Ogddbrg-Wvbstnziaokbo-Gmlwk ine (EXCEDRIN) 250-250-65 mg per tablet Take 1 tablet by mouth every 6 hours as needed. vitamin B complex (B COMPLEX ORAL) Take by mouth. No current facility-administered medications for this visit. FAMILY HISTORY Problem Relation Age of Onset Cancer Mother ? uterine Alcohol/Drug Father esophageal varices Alzheimer's Disease Maternal Grandmother Social History Tobacco Use Smoking status: Former Smokeless tobacco: Never Tobacco comments: 1PPD x 8-10 years Vaping Use Vaping status: Never Used Substance Use Topics Alcohol use: No Comment: drank some in the past Drug use: Not Currently Types: Marijuana Comment: remote marijuana EXAM: BP 107/70 Pulse 80 Resp 16 Wt 54.4 kg (120 lb) SpO2 98% BMI 16.27 kg/m? PHYSICAL EXAM: General Appearance: Well appearing, alert, in no acute distress, well-hydrated, well nourished.. Skin: Skin color, texture, turgor normal, no suspicious rashes or lesions. Head: Normocephalic, no masses, lesions, tenderness or abnormalities. Eyes: Anicteric sclera. Extraocular movements are intact. . Lungs: Lungs clear to auscultation. No wheezing, rhonchi, rales.. Heart: RRR without murmur, gallop, or rubs. No ectopy. Neurologic: Gait normal with cane -- short distance. + parkinson gait. ASSESSMENT/PLAN: 1. 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 He cannot travel. Requesting virtual appt. Aware that the may not be able to be accommodated. - CONSULT TO NEUROLOGY 2. Chronic pain syndrome - ICD9: 338.4, ICD10: G89.4 He had no effect witht he tizanidine 2 mg, but also no side effects. Will trial increasing to 4 mg. - TIZANIDINE 2 MG TABLET 3. Lumbar foraminal stenosis - ICD9: 724.02, ICD10: M48.061 As above. - TIZANIDINE 2 MG TABLET 4. Weight loss - ICD9: 783.21, ICD10: R63.4 Weight stable. Discussed treatment plan and patient voices understanding. Patient's questions answered appropriately. Medications and potential side effects were discussed and patient voices understanding. Return to the office as scheduled or as needed for worsening/no improvement. Viola Phelps APRN.Viola Wong APRN.JEZ 02/19/2025 3:05 PM Signed Try the higher dose tizanidine. Let me know if that is helpful. I'll see what I can find outre: parkinson's specialist. Recheck in 3 months. Allergies As of Date: 02/19/2025 Noted Allergy Reaction BANANA 10/13/2018 8 - GI Upset Comments: bloating Date Reviewed: 02/19/2025 Reviewed by: Pradeep Angel LPN - Fully Assessed Reason for Visit: Recheck [92] Cmt: 1 month follow up Primary Visit Diagnosis:Parkinsonian features [R29.818] Other Visit Diagnoses:Chronic pain syndrome [G89.4] Lumbar foraminal stenosis [M48.061] Weight loss [R63.4] Order(s):tiZANidine (ZANAFLEX) 2 mg tabletTake 2 tablets by mouth two times a day as needed (for pain).Disp: 30 tabletRfl: 1 CONSULT TO NEUROLOGY [9019] Order #: [id number]: 1 FUTURE Prescriptions as of 02/19/2025 - tiZANidine (ZANAFLEX) 2 mg tablet Take 2 tablets by mouth two times a day as needed (for pain). - mirtazapine (REMERON) 15 mg tablet Take 1 tablet by mouth daily at bedtime. - levothyroxine (SYNTHROID) 50 mcg tablet take 1 tablet by mouth every morning ON AN EMPTY STOMACH FOR THYROID - Uxlflpl-Aahbobxsarpvc-Ghmf (more content not included)... Normal [facility] NAVA HEAL[facility] ([id number]) 1945 M Date Time Provider Department 01/22/25 CALE MIX During your visit today, we recorded the following information about you: Cale Mix MSW 01/22/2025 3:54 PM Signed Patient called Sw and asked for agency that could help him connect with appropriate assisted living/equipment operator intermodal yard care option in the community. Sw and patient discussed Jovita Reynolds as an option to help guide assist patient along the way looking at AL/LTC. Patient noted I would appreciate the guidance and am okay with you referring me to [facility]. Sw noted that she would call [facility]ail and discuss with her to reach out to patient. Mckinley called Gail and left message for her to call this Sw back to discuss referral. Cale Mix MSW 01/25/2025 10:48 AM Signed Sw spoke with Jovita Reynolds, and she is going to reach out to patient to discuss assisted living options and how she can assist patient with the process. Gail noted that she would let this MCKINLEY and SHREE Rod know update on AL for patient. Allergies As of Date: 01/22/2025 Noted Allergy Reaction BANANA 10/13/2018 8 - GI Upset Comments: bloating Date Reviewed: 01/20/2025 Reviewed by: Pradeep Angel LPN - Fully Assessed Prescriptions as of 01/25/2025 - mirtazapine (REMERON) 15 mg tablet Take 1 tablet by mouth daily at bedtime. - tiZANidine (ZANAFLEX) 2 mg tablet Take 1 tablet by mouth two times a day as needed (for pain). - levothyroxine (SYNTHROID) 50 mcg tablet take 1 tablet by mouth every morning ON AN EMPTY STOMACH FOR THYROID - Egendci-Pdpjtiocauqlk-Lhdma ine (EXCEDRIN) 250-250-65 mg per tablet Take 1 tablet by mouth every 6 hours as needed. - vitamin B complex (B COMPLEX ORAL) Take by mouth. Problem List As Of Date 01/22/2025 Noted Resolved Acquired hypothyroidism [E03.9] 05/06/2016 DDD (degenerative disc disease), lumbar [M51.36*10/13/2018 Lumbar foraminal stenosis [M48.061] 05/11/2021 Parkinson's syndrome (HCC) [G20.A1] 10/30/2022 Nonrheumatic mitral valve regurgitation [I34.0] 08/18/2024 Encounter Status:Closed by CALE MIX on 01/25/25 [facility] CNOVon 01-20-2025 CNOV Office Visit ([facility] ) NAVA HEALY ([id number]) 1945 M Date Time Provider Department 01/20/25 3:00 PM VIOLA PHELPS During your visit today, we recorded the following information about you: Pulse Respiration Blood pressure Weight 74/minute 16/minute 128/78 54.4 kg Viola Phelps APRN.[employer] 01/20/2025 3:47 PM Signed This is a 79 year old male who presents today with: Patient presents with: Recheck: 1 month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 Facility: [facility] Address: [address] [place] [address] Performed By: #### 5 7021-8, 88288-6 #### [facility] CLIA [id number] [address] [place] [address] [place] Neutrophils (Bld) [#/Vol] 7.34 10*3/uL Normal 1.45-7.50 [facility] Comment on above: Order Comment: Speci men Type: BLOOD SPECIMEN Ordering Facility: [facility] Address: [address] [place] [address] Performed By: #### 5 7021-8, 02443-6 #### [facility] CLIA [id number] [address] [place] [address] [place] Neutrophils/100 WBC (Bld) 78.6 % Normal [facility] Comment on above: Order Comment: Speci men Type: BLOOD SPECIMEN Ordering Facility: [facility] Address: [address] [place] [address] Performed By: #### 5 7021-8, 16583-7 #### [facility] CLIA [id number] [address] [place] [address] [place] Nucleated RBC (Bld) [#/Vol] 10*3/uL Normal <0.01 [facility] Comment on above: Order Comment: Speci men Type: BLOOD SPECIMEN Ordering Facility: [facility] Address: [address] [place] [address] Performed By: #### 5 7021-8, 88976-5 #### [facility] CLIA [id number] [address] [place] [address] [place] Nucleated RBC/100 WBC (Bld) [Ratio] 0.0 /100 WBC Normal [facility] Comment on above: Order Comment: Speci men Type: BLOOD SPECIMEN Ordering Facility: [facility] Address: [address] [place] [address] Performed By: #### 5 7021-8, 72831-5 #### [facility] CLIA [id number] [address] [place] [address] [place] Platelet mean volume (Bld) [Entitic vol] 10.8 fL Normal 9.0-12.7 [facility] Comment on above: Order Comment: Speci men Type: BLOOD SPECIMEN Ordering Facility: [facility] Address: [address] [place] [address] Performed By: #### 5 7021-8, 82124-5 #### [facility] CLIA [id number] [address] [place] [address] [place] Platelets (Bld) [#/Vol] 282 10*3/uL Normal 150-400 [facility] Comment on above: Order Comment: Speci men Type: BLOOD SPECIMEN Ordering Facility: [facility] Address: [address] [place] [address] Performed By: #### 5 7021-8, 32788-3 #### [facility] CLIA [id number] [address] [place] [address] [place] RBC (Bld) [#/Vol] 4.02 10*6/uL Low 4.20-6.00 [facility] Comment on above: Order Comment: Speci men Type: BLOOD SPECIMEN Ordering Facility: [facility] Address: [address] [place] [address] Performed By: #### 5 7021-8, 66765-9 #### [facility] CLIA [id number] [address] [place] [address] [place] WBC (Bld) [#/Vol] 9.33 10*3/uL Normal 3.70-11.00 [facility] Comment on above: Order Comment: Speci men Type: BLOOD SPECIMEN Ordering Facility: [facility] Address: [address] [place] [address] Performed By: #### 5 7021-8, 82588-7 #### [facility] CLIA [id number] [address] [place] [address] [id number] [facility] CNOVon 10-28-2024 CNOV Office Visit (FAMPWS ) NAVA HEALY ([id number]) 1945 M Date Time Provider Department 10/28/24 2:00 PM VIOLA PHELPS During your visit today, we recorded the following information about you: Pulse Respiration Blood pressure 76/minute 16/minute 118/72 Viola Phelps APRN.[employer]ADE EMBALMER 10/28/2024 5:33 PM Signed This is a 79 year old male who presents today with: Patient presents with: Recheck: 3 month follow up HISTORY OF PRESENT ILLNESS: Nava Healy is a 79 year old male. Patient presents with: Recheck: 3 month follow up Pt presents today for 3 month follow-up. Refers that he is producing more saliva. Bothersome to patient. Suspect related to parkinson's symptoms. Back pain. 12 steroid injection. Massage therapy. PT. Nothing helpful. Discussed spine before, but doesn't want surgery. Followed w/ pain management in the past. Gets pain in the back and legs. He now only has 5 cats. Has lost appx 8 pounds. He reports that he is eating regularly. Some constipation managed with OTC medication and fiber. No hematochezia/melena. Denies CP/SOB. PAST MEDICAL HISTORY: PAST MEDICAL HISTORY Diagnosis Date Hypothyroidism (acquired) age 68 PAST SURGICAL HISTORY Procedure Laterality Date TONSILLECTOMY AND ADENOIDECTOMY HX ALLERGIES Banana MEDICATIONS Current Outpatient Medications Medication Sig levothyroxine (SYNTHROID) 50 mcg tablet take 1 tablet by mouth every morning ON AN EMPTY STOMACH FOR THYROID melatonin 1 mg chew Take by mouth. Rptfafr-Osmrhzwqfjdhu-Bfuec ine (EXCEDRIN) 250-250-65 mg per tablet Take 1 tablet by mouth every 6 hours as needed. vitamin B complex (B COMPLEX ORAL) Take by mouth. No current facility-administered medications for this visit. FAMILY HISTORY Problem Relation Age of Onset Cancer Mother ? uterine Alcohol/Drug Father esophageal varices Alzheimer's Disease Maternal Grandmother Social History Tobacco Use Smoking status: Former Smokeless tobacco: Never Tobacco comments: 1PPD x 8-10 years Vaping Use Vaping status: Never Used Substance Use Topics Alcohol use: No Comment: drank some in the past Drug use: Not Currently Types: Marijuana Comment: remote marijuana EXAM: BP 118/72 Pulse (!) 55 Resp 16 SpO2 97% PHYSICAL EXAM: General Appearance: Well appearing, alert, in no acute distress, well-hydrated, well nourished.. Skin: Skin color, texture, turgor normal, no suspicious rashes or lesions. Head: Normocephalic, no masses, lesions, tenderness or abnormalities. Eyes: Anicteric sclera. Extraocular movements are intact. . Lungs: Lungs clear to auscultation. No wheezing, rhonchi, rales.. Heart: RRR without murmur, gallop, or rubs. No ectopy. Extremities: No deformities, edema, skin discoloration, clubbing or cyanosis. Good capillary refill. . Musculoskeletal: + muscle weakness of the LE -- R>L. Neurologic: answers questions appropriately. ASSESSMENT/PLAN: 1. Acquired hypothyroidism - ICD9: 244.9, ICD10: E03.9 (primary diagnosis) Due for labs today. - THYROID STIMULATING HORMONE - T4 FREE/FREE THYROXINE 2. Vitamin D deficiency - ICD9: 268.9, ICD10: E55.9 Recheck. - VITAMIN D 25 HYDROXY 3. Generalized weakness - ICD9: 780.79, ICD10: R53.1 Recheck. - COMPLETE BLOOD COUNT AND DIFFERENTIAL - COMPREHENSIVE METABOLIC PANEL 4. Other chronic pain - ICD9: 338.29, ICD10: G89.29 Discussed options. Agreeable to trial of duloxetine to see if helps chronic pain. - DULOXETINE 20 MG CAPSULE,DELAYED RELEASE 5. Parkinson's disease with dyskinesia and fluctuating manifestations (HCC) - ICD9: 332.0, ICD10: G20.B2 Continue per neuro. 6. Weight loss - ICD9: 783.21, ICD10: R63.4 Recheck in 1 month. Check thyroid levels. Discussed treatment plan and patient voices understanding. Patient's questions answered appropriately. Medications and potential side effects were discussed and patient voices understanding. Return to the office as scheduled or as needed for worsening/no improvement. Viola Phelps APRN.Viola Wong APRN.JEZ 10/28/2024 3:05 PM Signed Get the labwork. Start the cymbalta. Recheck in 1 month. Allergies As of Date: 10/28/2024 Noted Allergy Reaction BANANA 10/13/2018 8 - GI Upset Comments: bloating Date Reviewed: 10/28/2024 Reviewed by: Pradeep Angel LPN - Fully Assessed Reason for Visit: Recheck [92] Cmt: 3 month follow up Primary Visit Diagnosis:Acquired hypothyroidism [E03.9] Other Visit Diagnoses:Vitamin D deficiency [E55.9] Generalized weakness [R53.1] Other chronic pain [G89.29] Parkinson's disease with dyskinesia and fluctuating manifestations (HCC) [G20.B2] Weight loss [R63.4] Order(s):COMPLETE BLOOD COUNT AND DIFFERENTIAL [SQCBCDIF] Order #: [id number] FUTURE COMPREHENSIVE METABOLIC PANEL [SQCMP] Order #: [id number] FUTURE THYROID STIMULATING HORMONE (more content not included)... Normal [facility] Trisha 10-28-2024 JEZN Telephone (FAMChasWS) NAVA HEALY ([id number]) 1945 M Date Time Provider Department 10/28/24 VIOLA PHELPS During your visit today, we recorded the following information about you: Mel Garrett RN 10/28/2024 4:56 PM Signed Patient calls to say he forgot to mention at appointment about his slobbering and he spoke to someone at the pharmacy to discuss medication for slobber mouth and was told that he would need a prescription. Reviewed OV notes with patient: Refers that he is producing more saliva. Labs are pending. Notified patient that we would contact him with provider response about medication and labs once labs were completed and reviewed. Patient wants medication that won't cause him any problems but eliminate the excessive slobbering. MILAD Payton Christy, APRN.[employer]ADE EMBALMER 10/30/2024 1:29 PM Signed Can please let patient know that I received his lab results. Overall, everything looked okay, except his vitamin D was just minimally low. I think we discussed doing a vitamin D gummy. We can try some glycopyrrolate for the salivation. Any medication can have side effects, however this one is less than others. (Generally the side effects we hear are dry mouth, constipation, etc. So please watch out for these). I went ahead and sent this to the pharmacy. It is one pill twice daily as needed. Viola Phelps APRN.Pradeep Gaspar LPN 10/30/2024 3:04 PM Signed Pt notified. He verbalized understanding. Pradeep Angel LPN Allergies As of Date: 10/28/2024 Noted Allergy Reaction BANANA 10/13/2018 8 - GI Upset Comments: bloating Date Reviewed: 10/28/2024 Reviewed by: Pradeep Angel LPN - Fully Assessed Reason for Visit: Patient Question [9547] Order(s):glycopyrrolate (ROBINUL) 1 mg tabletTake 1 tablet by mouth two times a day. As needed for salivationDisp: 60 tabletRfl: 0 Prescriptions as of 10/30/2024 - glycopyrrolate (ROBINUL) 1 mg tablet Take 1 tablet by mouth two times a day. As needed for salivation - DULoxetine (CYMBALTA) 20 mg capsule Take 1 capsule by mouth once daily. - levothyroxine (SYNTHROID) 50 mcg tablet take 1 tablet by mouth every morning ON AN EMPTY STOMACH FOR THYROID - melatonin 1 mg chew Take by mouth. - Aqkktvg-Pnywztcbjkyuu-Jbrcj ine (EXCEDRIN) 250-250-65 mg per tablet Take 1 tablet by mouth every 6 hours as needed. - vitamin B complex (B COMPLEX ORAL) Take by mouth. Problem List As Of Date 10/28/2024 Noted Resolved Acquired hypothyroidism [E03.9] 05/06/2016 DDD (degenerative disc disease), lumbar [M51.36*10/13/2018 Lumbar foraminal stenosis [M48.061] 05/11/2021 Parkinson's syndrome (HCC) [G20.A1] 10/30/2022 Nonrheumatic mitral valve regurgitation [I34.0] 08/18/2024 Prescriptions ordered this encounter Disp Refills Start End GLYCOPYRROLATE 1 MG TABLET 60 t* 0 10/30/2024 Route: ORAL Sig: Take 1 tablet by mouth two times a day. As needed for salivation Encounter Status:Closed by PRADEEP ANGEL on 10/30/24 Normal [facility] Comprehensive metabolic 2000 panelon 10-28-2024 Albumin [Mass/Vol] 4.1 g/dL Normal 3.9-4.9 [facility] Comment on above: Order Comment: Speci men Type: BLOOD SPECIMEN Ordering Facility: [facility] Address: [address] [place] [address] Performed By: #### 2 4323-8, 3024-7, 6-3 #### [facility] CLIA [id number] [address] [place] [address] [place] ALP [Catalytic activity/Vol] 65 U/L Normal 38-113 [facility] Comment on above: Order Comment: Speci men Type: BLOOD SPECIMEN Ordering Facility: [facility] Address: [address] [place] [address] Performed By: #### 2 4323-8, 3024-7, 3016-3 #### [facility] CLIA [id number] [address] [place] [address] [place] ALT [Catalytic activity/Vol] 17 U/L Normal 10-54 [facility] Comment on above: Order Comment: Speci men Type: BLOOD SPECIMEN Ordering Facility: [facility] Address: [address] [place] [address] Performed By: #### 2 4323-8, 3024-7, 3016-3 #### [facility] CLIA [id number] [address] [place] [address] [place] Anion gap [Moles/Vol] 9 mmol/L Normal 8-15 [facility] Comment on above: Order Comment: Speci men Type: BLOOD SPECIMEN Ordering Facility: [facility] Address: [address] [place] [address] Performed By: #### 2 4323-8, 3024-7, 3016-3 #### [facility] CLIA [id number] [address] [place] [address] [place] AST [Catalytic activity/Vol] 23 U/L Normal 14-40 [facility] Comment on above: Order Comment: Speci men Type: BLOOD SPECIMEN Ordering Facility: [facility] Address: [address] [place] [address] Performed By: #### 2 4323-8, 302-7, 6-3 #### [facility] CLIA [id number] [address] [place] [address] [place] Bilirubin [Mass/Vol] 0.5 mg/dL Normal 0.2-1.3 [facility] Comment on above: Order Comment: Speci men Type: BLOOD SPECIMEN Ordering Facility: [facility] Address: [address] [place] [address] Performed By: #### 2 4323-8, 3024-7, 3016-3 #### [facility] CLIA [id number] [address] [place] [address] [place] Calcium [Mass/Vol] 9.6 mg/dL Normal 8.5-10.2 [facility] Comment on above: Order Comment: Speci men Type: BLOOD SPECIMEN Ordering Facility: [facility] Address: [address] [place] [address] Performed By: #### 2 4323-8, 3024-7, 3016-3 #### [facility] CLIA [id number] [address] [place] [address] [place] Chloride [Moles/Vol] 104 mmol/L Normal 98-107 [facility] Comment on above: Order Comment: Speci men Type: BLOOD SPECIMEN Ordering Facility: [facility] Address: [address] [place] [address] Performed By: #### 2 4323-8, 3024-7, 3016-3 #### [facility] CLIA [id number] [address] [place] [address] [place] CO2 [Moles/Vol] 25 mmol/L Normal 22-30 [facility] Comment on above: Order Comment: Speci men Type: BLOOD SPECIMEN Ordering Facility: [facility] Address: [address] [place] [address] Performed By: #### 2 4323-8, 3024-7, 3016-3 #### [facility] CLIA [id number] [address] [place] [address] [place] Creatinine [Mass/Vol] 0.98 mg/dL Normal 0.73-1.22 [facility] Comment on above: Order Comment: Speci men Type: BLOOD SPECIMEN Ordering Facility: [facility] Address: [address] [place] [address] Performed By: #### 2 4323-8, 3024-7, 3016-3 #### [facility] CLIA [id number] [address] [place] [address] [place] Creatinine and Glomerular filtration rate.predicted panel (S/P/Bld) 78 mL/min/1.73m??? Normal >=60 [facility] Comment on above: Order Comment: Speci men Type: BLOOD SPECIMEN Ordering Facility: [facility] Address: [address] [place] [address] Result Comment: Cecy mated Glomerular Filtration Rate (eGFR) is calculated using the 2020 CKD-EPI creatinine equation. This equation utilizes serum creatinine, sex, and age as parameters. The creatinine assay has traceable calibration to isotope dilution-mass spectrometry. Refer to KDIGO guidelines for clinical interpretation. In patients with unstable renal function, e.g. those with acute kidney injury, the eGFR may not accurately reflect actual GFR. Performed By: #### 2 4323-8, 3024-7, 6-3 #### [facility] CLIA [id number] [address] [place] [address] [place] Glucose [Mass/Vol] 74 mg/dL Normal 74-99 [facility] Comment on above: Order Comment: Evelyn polo Type: BLOOD SPECIMEN Ordering Facility: [facility] Address: [address] [place] [address] Result Comment: The [place] [employer] (ADA) provides guidance for cutoff values for fasting glucose and random glucose. The ADA defines fasting as no caloric intake for at least 8 hours. Fasting plasma glucose results between 100 to 125 mg/dL indicate increased risk for diabetes (prediabetes). Fasting plasma glucose results greater than or equal to 126 mg/dL meet the criteria for diagnosis of diabetes. In the absence of unequivocal hyperglycemia, results should be confirmed by repeat testing. In a patient with classic symptoms of hyperglycemia or hyperglycemic crisis, random plasma glucose results greater than or equal to 200 mg/dL meet the criteria for diagnosis of diabetes. Reference: Standards of Medical Care in Diabetes 2016, [place] [employer]. Diabetes Care. 2016.39(Suppl 1). Performed By: #### 2 4323-8, 3023-7, 3015-3 #### [facility] CLIA [id number] [address] [place], [place] [id number] [place] Potassium [Moles/Vol] 4.6 mmol/L Normal 3.7-5.1 [facility] Comment on above: Order Comment: Evelyn polo Type: BLOOD SPECIMEN Ordering Facility: [facility] Address: [address] [place], [place] [address] Performed By: #### 2 4323-8, 3023-7, 3016-3 #### [facility] CLIA [id number] [address] [place] [address] [place] Protein [Mass/Vol] 7.6 g/dL Normal 6.3-8.0 [facility] Comment on above: Order Comment: Speci men Type: BLOOD SPECIMEN Ordering Facility: [facility] Address: [address] [place] [address] Performed By: #### 2 4323-8, 302-7, 3016-3 #### [facility] CLIA [id number] [address] [place], [place] [address] [place] Sodium [Moles/Vol] 138 mmol/L Normal 136-144 [facility] Comment on above: Order Comment: Speci men Type: BLOOD SPECIMEN Ordering Facility: [facility] Address: [address] [place] [address] Performed By: #### 2 4323-8, 302-7, 3015-3 #### [facility] CLIA [id number] [address] [place] [address] [place] Urea nitrogen [Mass/Vol] 12 mg/dL Normal 9-24 [facility] Comment on above: Order Comment: Speci men Type: BLOOD SPECIMEN Ordering Facility: [facility] Address: [address] [place] [address] Performed By: #### 2 4323-8, 302-7, 6-3 #### [facility] CLIA [id number] [address] [place], [place] [id number] [place] T4 Free SerPl-mCncon 025 Free T4 [Mass/Vol] 1.3 ng/dL Normal 0.9-1.7 [facility] Comment on above: Order Comment: Speci men Type: BLOOD SPECIMEN Ordering Facility: [facility] Address: [address] [place] [address] Performed By: #### 2 4323-8, 302-7, 6-3 #### [facility] CLIA [id number] [address] [place] [address] [place] TSH SerPl-aCncon 10-28-2024 TSH Qn 1.630 m[IU]/L Normal 0.270-4.200 [facility] Comment on above: Order Comment: Speci men Type: BLOOD SPECIMEN Ordering Facility: [facility] Address: [address] [place] [address] Performed By: #### 2 4323-8, 3024-7, 3016-3 #### [facility] CLIA [id number] [address] [place] [address] [place] CNOVon 10-27-2024 CNOV Office Visit (VANE ) NAVA HEALY ([id number]) 1945 M Date Time Provider Department 10/27/24 4:15 PM KIRSTIN ALDRIDGE During your visit today, we recorded the following information about you: Pulse Blood pressure Weight 74/minute 134/91 55.5 kg Kirstin Aldridge PA-C 10/27/2024 4:51 PM Signed ESTABLISHED PATIENT VISIT Last visit: 10/01/23 ASSESSMENT/PLAN: 1. Unstable gait - ICD9: 781.2, ICD10: R26.81 (primary diagnosis) 2. Generalized weakness - ICD9: 780.79, ICD10: R53.1 3. Myalgias - ICD9: 729.1, ICD10: M79.10 4. Fasciculation - ICD9: 781.0, ICD10: R25.3 5. Lightheadedness - ICD9: 780.4, ICD10: R42 6. Lumbar pain - ICD9: 724.2, ICD10: M54.50 7. Parkinsonian features - ICD9: 781.0, ICD10: R29.818 Patient presents for follow-up for persistent weakness, lower extremity pain, gait change. Patient's primary concern today is the pain he experiences from his back bilaterally around his thighs and into his calfs. Notes extreme sensitivity to light touch and has pain even with wearing pants. Patient also with shuffling gait and signs and symptoms of Parkinson's. Did try Sinemet for 2 days, but states he had significant diarrhea so he stopped this. However, continues to have diarrhea at this time. At last appointment, it was discussed that ordering an EMG would be the next step should patient not tolerate medications or medications not be helpful. However, patient deferring an EMG due to the discomfort of the exam. States he prefer just trying different medications to target his pain and discomfort. Did discuss that there are alternative medications for Parkinson's and patient primarily just wants to address his pain. Suggests a orthopedic brace to wear around his abdomen and back to support his back as he feels this is the source of his discomfort. Does follow with pain management, has tried injections in the past without any significant benefit. Has been through physical therapy, last of which was about 6 months ago. 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 No falls since last appointment. No new concerns since last appointment. Will reach out to collaborating physician about alternative treatments and workup for patient's symptoms. Emphasized the diagnostic advantage of an EMG, states that he will think about it having this completed. EMG of upper and lower extremity ordered. Discussed other conservative therapies that may beneficial including core strengthening, increasing exercise, increasing water intake, optimizing sleep. Patient agrees and understands. Patient agreeable to treatment plan of care at this time, questions were answered. Patient to follow-up with Dr. Vargas in 3 to 4 months or sooner should any symptoms change or worsen. Kirstin Aldridge PA-C CHIEF COMPLAINT: follow up HISTORY OF PRESENT ILLNESS: Nava Healy is a 79 year old male, There were no vitals taken for this visit. with a PMH significant for hypothyroidism, DDD lumbar, PD . Last seen 10/01/23 for back pain, unstable gait, PD. GI side effects with sinemet so stoped this, primary concern is low back pain. Haivng episodes of LH but no syncope. Encouraged fu with pain management. Ordered EMG. Saw PCP on 07/28/24 and put in referral for social work. Sent to spine for lumbar spine, gait change.Asked about gene therapy and research has reached out to pt. Patient presents for follow-up today. Notes primary concern is still a lot of back pain and discomfort in his legs. Was referred to the spinal department but has yet to schedule. Is not sure what they can do for him as he has had injections in the past without any improvement. Notes he is a lot of weakness in his legs, has had about 3 falls in the last year all of which were mechanical and attributes them to his lower legs, whether it is initiation of movement or overall weakness in the legs. States that he plans to start exercising again but is not very active at home right now. Also notes he has some issues with appetite, has some appetite loss and weight loss recently. Last fall was 4 months ago, in the kitchen he was putting something on the counter and just fell, unsure why he exactly fell. Denies any syncope notes improvement in his lightheadedness. No new symptoms today. REVIEW OF SYSTEMS GENERAL:No weight loss, malaise or fevers. HEENT:Negative for frequent or significant headaches, No changes in hearing or vision, no nose bleeds or other nasal problems NECK:Negative for lumps, goiter, pain and significant neck swelling RESPIRATORY: Negative for cough, wheezing or shortness of breath. CARDIOVASCULAR: Negative for chest pain, leg swelling or palpitations. GASTROINTESTINAL: Negative for abdominal discomfort, blood in stools or black stools or change in bowel habits GENITOURINARY: (more content not included)... Normal [facility] 08-18-2024 JEZN Telephone (RENEE) NAVA HEALY ([id number]) 1945 M Date Time Provider Department 08/18/24 VIOLA PHELPS During your visit today, we recorded the following information about you: Viola Phelps APRN.JEZ 08/18/2024 5:46 PM Signed Can please let patient know that I received his echo results. It does show a little bit of leakage in the mitral valve. As long as he is not having symptoms, we generally just recheck this in about 3 years to ensure that it is not worsening. Viola Phelps APRN.Kerri Kendall LPN 08/19/2024 10:37 AM Signed Left a message for pt to call the office and ask to speak to a nurse. INDIRA Reddy Kim E, LPN 08/21/2024 3:32 PM Signed patient notified and verbalized understanding. PATIENT also reminded of upcoming appointments . Sudarshan Mena LPN Allergies As of Date: 08/18/2024 Noted Allergy Reaction BANANA 10/13/2018 8 - GI Upset Comments: bloating Date Reviewed: 07/28/2024 Reviewed by: Pradeep Angel LPN - Fully Assessed Reason for Visit: Results [95] Primary Visit Diagnosis:Nonrheumatic mitral valve regurgitation [I34.0] Prescriptions as of 08/21/2024 - levothyroxine (SYNTHROID) 50 mcg tablet take 1 tablet by mouth every morning ON AN EMPTY STOMACH FOR THYROID - melatonin 1 mg chew Take by mouth. - Irftkhe-Sddstvvxkmzey-Rvrxc ine (EXCEDRIN) 250-250-65 mg per tablet Take 1 tablet by mouth every 6 hours as needed. - vitamin B complex (B COMPLEX ORAL) Take by mouth. Problem List As Of Date 08/18/2024 Noted Resolved Acquired hypothyroidism [E03.9] 05/06/2016 DDD (degenerative disc disease), lumbar [M51.36*10/13/2018 Lumbar foraminal stenosis [M48.061] 05/11/2021 Parkinson's syndrome (HCC) [G20.A1] 10/30/2022 Nonrheumatic mitral valve regurgitation [I34.0] 08/18/2024 Encounter Status:Closed by SUDARSHAN MENA on 08/21/24 Normal [facility] ECHOon 08-13-2024 Echocardiography Echocardiography Rep ort: Transthoracic Echo [facility] Date of service: 08/13/2024 2:49:05 PM Ordering physician: VIOLA PHELPS Indication: Palpitations Technologist: Janna Cotter [facility] Interpreting physician: Fara Gould MD PATIENT: Name: MR. NAVA HEALY : 1945 Age: 79 years Gender: M Primary rhythm: sinus. Height: 182.90 cm BSA: 1.73 m Weight: 58.97 kg BMI: 17.6 kg/m Heart rate 62 bpm Blood pressure 140/88 mmHg Technically difficult exam due to suboptimal positioning and body habitus. Color Doppler was utilized to interrogate the cardiac valves assessed and spectral Doppler was utilized to determine the flow velocities and pressure gradients reported in this exam. MEASUREMENTS: Value Indexed Normal Max aortic dimension 3.1 cm Ao < 3.8 Left atrial volume 32 ml (4ch A-L) 19 ml/m Marvin <= 34 LV ID (diastole) 4.2 cm (2D) 2.41 cm/m LV ID (systole) 2.8 cm (2D) 1.61 cm/m IVS, leaflet tips 0.8 cm (2D) Posterior wall thickness 1.0 cm (2D) Left ventricular mass 115 g (2D) 66 g/m LV stroke volume 43 ml (2D 4-ch.) LV end diastolic volume 72 ml (2D 4-ch.) 41.8 ml/m 34<=EDVi<75 LV end systolic volume 30 ml (2D 4-ch.) 17.2 ml/m Ejection Fraction 59 % (2D 4-ch.) EF > 52 FINDINGS: LEFT VENTRICLE The left ventricle is normal in size. Left ventricular systolic function is normal. Indeterminate left ventricular diastolic function. Mitral annular lateral E/e': 4.9. Mitral annular septal E/e': 5.8. Wall Motion: All scored segments are normal. RIGHT VENTRICLE The right ventricle is normal in size. Right ventricular systolic function is normal. RV systolic tissue Doppler velocity is 11.0 cm/s. Estimated right ventricular systolic pressure is not reported due to an insufficient tricuspid regurgitation signal. Estimated right atrial pressure is 8 mmHg based on IVC assessment. LEFT ATRIUM The left atrial cavity is normal in size. RIGHT ATRIUM The right atrial cavity is normal in size. Inferior Vena Cava: The inferior vena cava appears normal measuring 1.2 cm. The vessel decreases less than 50 percent with inspiration. MITRAL VALVE The mitral valve leaflets are structurally normal. There is no mitral stenosis. There is mild (1+) mitral valve regurgitation. There is mild thickening. The pressure half time is 88 msec. The peak mitral E/A ratio is 1.17. The average mitral E/e' ratio is 5.3. The mitral flow deceleration time is 304 msec. TRICUSPID VALVE The tricuspid valve leaflets are structurally normal. There is trace tricuspid valve regurgitation. AORTIC VALVE There is no aortic valve stenosis. There is trace aortic valve regurgitation. Tricuspid aortic valve. There is mild thickening. There is mild calcification. The peak gradient is 5 mmHg (peak velocity = 108.5 cm/s). PULMONIC VALVE The pulmonic valve cusps are structurally normal. There is no pulmonic stenosis. There is no pulmonic valve regurgitation. AORTA The visualized aorta is normal in size. Measurements - Mid ascending aorta 3.1 cm. PERICARDIUM There is no pericardial effusion. There is an epicardial fat pad. CONCLUSIONS: - Technically difficult exam due to suboptimal positioning and body habitus. - Exam indication: Palpitations - The left ventricle is normal in size. Left ventricular systolic function is normal. EF = 59 5% (2D 4-ch.). Indeterminate left ventricular diastolic function. - The right ventricle is normal in size. Right ventricular systolic function is normal. - Mild (1+) mitral valve regurgitation. - The patient has not had a prior CC echocardiographic exam for comparison. * * * Final * * * [employer] Image : [id number] Normal [facility] Trisha 07-30-2024 JEZN Telephone (NAVWST) NAVA HEALY ([id number]) 1945 Date Time Provider Department 07/30/24 CALE MIX During your visit today, we recorded the following information about you: JuwanleonlillianamiguelMarkoin, CONVEYOR BELT REPAIRER 07/30/2024 10:32 AM Signed Sw left patient message to have call returned in regards to transportation resource options in the community for medical and non medical appts. Cale Mix, CONVEYOR BELT REPAIRER 07/31/2024 2:13 PM Signed Patient reports that his issue with transportation is when he has had to go to [place]. Patient notes I don't like riding that far to [place] and I want to have more of my visits done locally. Patient reports that he is looking for help around the home ie. Light housekeeping, meal prep, laundry, possibly personal care. Sw noted [facility] and [facility]. Patient also mentioned possibly looking at independent and assisted living options. Sw noted that [facility] is an agency that has been helpful to individuals looking at independent and assisted living options. [facility] also a good agency with resource options. Sw noted that she would work on compiling home care and [facility] resource guide and mail out to patient home. Allergies As of Date: 07/30/2024 Noted Allergy Reaction BANANA 10/13/2018 8 - GI Upset Comments: bloating Date Reviewed: 07/28/2024 Reviewed by: Pradeep Angel LPN - Fully Assessed Prescriptions as of 08/03/2024 - levothyroxine (SYNTHROID) 50 mcg tablet take 1 tablet by mouth every morning ON AN EMPTY STOMACH FOR THYROID - melatonin 1 mg chew Take by mouth. - Vcvslki-Gmofpbiwaobpq-Jwsdf ine (EXCEDRIN) 250-250-65 mg per tablet Take 1 tablet by mouth every 6 hours as needed. - vitamin B complex (B COMPLEX ORAL) Take by mouth. Problem List As Of Date 07/30/2024 Noted Resolved Acquired hypothyroidism [E03.9] 05/06/2016 DDD (degenerative disc disease), lumbar [M51.36*10/13/2018 Lumbar foraminal stenosis [M48.061] 05/11/2021 Parkinson's syndrome (HCC) [G20.A1] 10/30/2022 Encounter Status:Closed by CALE MIX on 08/03/24 Normal [facility] CNOVon 07-28-2024 CNOV Office Visit (FAMPWS ) NAVA HEALY ([id number]) 1945 M Date Time Provider Department 07/28/24 1:00 PM [facility] During your visit today, we recorded the following information about you: Pulse Respiration Blood pressure 84/minute 16/minute 128/76 Viola Phelps APRN.TRADE EMBALMER 07/29/2024 11:13 PM Signed This is a 79 year old male who presents today with: Patient presents with: Recheck: 3 month follow up/ Transfer of care HISTORY OF PRESENT ILLNESS: Nava Healy is a 79 year old male. Patient presents with: Recheck: 3 month follow up/ Transfer of care Pt presents today for 3 month recheck. + parkinson's. Follows with neuro, but hasn't followed up. Does not wish to take medication d/t potential side effects. Loss of balance and dizziness. Trouble with falls. Did get a life alert d/t having some falls. Refers that he did participate in physical therapy about a year ago for gait training, which hasn't helped. Refers that he did see neurology and said they told him they couldn't help him if he didn't get EMG, which patient does not wish to do. Interested in some home services to help with household duties. Back pain. Recommended in the past to see spine surgery. He would like to proceed with that. Transportation can be an issue. He has seen pain management in the past and is not interested in this again. PAST MEDICAL HISTORY: PAST MEDICAL HISTORY Diagnosis Date Hypothyroidism (acquired) age 68 PAST SURGICAL HISTORY Procedure Laterality Date TONSILLECTOMY AND ADENOIDECTOMY HX ALLERGIES Banana MEDICATIONS Current Outpatient Medications Medication Sig levothyroxine (SYNTHROID) 50 mcg tablet take 1 tablet by mouth every morning ON AN EMPTY STOMACH FOR THYROID melatonin 1 mg chew Take by mouth. Nbqocoj-Neecgudvqsroo-Dtyxb ine (EXCEDRIN) 250-250-65 mg per tablet Take 1 tablet by mouth every 6 hours as needed. vitamin B complex (B COMPLEX ORAL) Take by mouth. No current facility-administered medications for this visit. FAMILY HISTORY Problem Relation Age of Onset Cancer Mother ? uterine Alcohol/Drug Father esophageal varices Alzheimer's Disease Maternal Grandmother Social History Tobacco Use Smoking status: Former Smokeless tobacco: Never Tobacco comments: 1PPD x 8-10 years Vaping Use Vaping status: Never Used Substance Use Topics Alcohol use: No Comment: drank some in the past Drug use: Not Currently Types: Marijuana Comment: remote marijuana EXAM: BP 128/76 Pulse 84 Resp 16 SpO2 97% PHYSICAL EXAM: General Appearance: Well appearing, alert, in no acute distress, well-hydrated, well nourished.. Skin: Skin color, texture, turgor normal, no suspicious rashes or lesions. Head: Normocephalic, no masses, lesions, tenderness or abnormalities. Eyes: Anicteric sclera. Pupils are equally round and reactive to light. Extraocular movements are intact. . Lungs: Lungs clear to auscultation. No wheezing, rhonchi, rales.. Heart: RRR without murmur, gallop, or rubs. No ectopy. Neurologic: Gait normal. R ASSESSMENT/PLAN: 1. Parkinson's disease with dyskinesia and fluctuating manifestations (HCC) - ICD9: 332.0, ICD10: G20.B2 (primary diagnosis) Will place referral for possible assist with household. Encouraged to follow-up with neuro. - PRIMARY CARE SOCIAL WORK CONSULT 2. Lumbar foraminal stenosis - ICD9: 724.02, ICD10: M48.061 Declines return to pain management. Referral to spine. Declines PT, as didn't find helpful in the past. - [facility]ULT [facility] 3. Encounter for immunization - ICD9: V03.89, ICD10: Z23 - PFIZER-BIONTECH COVID-19 VACCINE AGE 12+ YR (COMIRNATY) Discussed treatment plan and patient voices understanding. Patient's questions answered appropriately. Medications and potential side effects were discussed and patient voices understanding. Return to the office as scheduled or as needed for worsening/no improvement. Viola Phelps APRN.Viola Wong APRN.JEZ 07/28/2024 1:55 PM Addendum Reschedule the echocardiogram. Reschedule w/ neurology. You should be hearing from our social service agency director worker. Check with the [employer]Net re: insurance coverage for a home heart monitor. Recheck in 3 months. Allergies As of Date: 07/28/2024 Noted Allergy Reaction BANANA 10/13/2018 8 - GI Upset Comments: bloating Date Reviewed: 07/28/2024 Reviewed by: Pradeep Angel LPN - Fully Assessed Reason for Visit: Recheck [92] Cmt: 3 month follow up/ Transfer of care Primary Visit Diagnosis:Parkinson's disease with dyskinesia and fluctuating manifestations (HCC) [G20.B2] Other Visit Diagnoses:Lumbar foraminal stenosis [M48.061] Encounter for immunization [Z23] Order(s):CONSULT TO [facility] [place] [[id number]] Order #: [id number]: 1 FUTURE PRIMARY CARE SOCIAL WORK CONSULT [[id number]] Order #: [id number] (more content not included)... [facility] C[facility]N Telephone (4CQ) NAVA HEALY ([id number]) 1945 M Date Time Provider Department 06/10/24 Basilio ABRAHAM 4CQ During your visit today, we recorded the following information about you: Bernice Pelayo 06/10/2024 2:12 PM Signed Pt called in stating he has Parkinsons and is requesting Gene therapy [facility]. Please advise. Thank you Lilli Goyal LPN 06/10/2024 3:09 PM Signed He was contacted through [facility] and was concerned regarding travel to [place]. Should this referral be coming from us or neuro? Lilli Goyal LPN 06/10/2024 3:35 PM Signed See additional message that was also sent to neuro. Viola Phelps APRN.JEZ 06/10/2024 3:38 PM Signed See 06/05/24 encounter --it looks like he was discussing with neuro. Since he is following with neuro, I would suspect referral should be from them. Viola Phelps APRN.Pradeep Gaspar LPN 06/10/2024 3:57 PM Signed See TE on 06/05/24. Pradeep Angel LPN Allergies As of Date: 06/10/2024 Noted Allergy Reaction BANANA 10/13/2018 8 - GI Upset Comments: bloating Date Reviewed: 04/06/2024 Reviewed by: Pradeep Angel LPN - Fully Assessed Reason for Visit: Consult [502] Prescriptions as of 06/10/2024 - levothyroxine (SYNTHROID) 50 mcg tablet take 1 tablet by mouth every morning ON AN EMPTY STOMACH FOR THYROID - melatonin 1 mg chew Take by mouth. - Xrvqmqj-Iogfzczwptrue-Ptpjg ine (EXCEDRIN) 250-250-65 mg per tablet Take 1 tablet by mouth every 6 hours as needed. - vitamin B complex (B COMPLEX ORAL) Take by mouth. Problem List As Of Date 06/10/2024 Noted Resolved Acquired hypothyroidism [E03.9] 05/06/2016 DDD (degenerative disc disease), lumbar [M51.36]10/13/2018 Lumbar foraminal stenosis [M48.061] 05/11/2021 Parkinson's syndrome (HCC) [G20.A1] 10/30/2022 Encounter Status:Closed by PRADEEP ANGEL on 06/10/24 Normal [facility] Basic Metabolic Profile (BMP )on 05-18-2024 BUN/CRE 14.5 RATIO Normal 10-20 [facility] Comment on above: Performed By: #### L [id number], L501.5200, L500.2500, L100.0100 #### [facility] [address] [place], [address] CA,Total 9.3 mg/dL Normal 8.5-10.1 [facility] Comment on above: Performed By: #### L [id number], L501.5200, L500.2500, L100.0100 #### [facility] [address] [place], [address] Chloride [Moles/Vol] 106 mmol/L Normal 98-107 [facility] Comment on above: Performed By: #### L [id number], L501.5200, L500.2500, L100.0100 #### [facility] [address] [place], [address] CO2 [Moles/Vol] 30.0 mmol/L Normal 21.0-32.0 [facility] Comment on above: Performed By: #### L [id number], L501.5200, L500.2500, L100.0100 #### [facility] [address] [place], [address] Creatinine [Mass/Vol] 1.24 mg/dL Normal 0.70-1.30 [facility] Comment on above: Result Comment: The validity of the calculated GFR GFRAA in patients over 70 years has not been determined. Clinical correlation is essential. Performed By: #### L [id number], L501.5200, L500.2500, L100.0100 #### [facility] [address] [place], [address] ECRCL 38.40 ml/min Normal [facility] Comment on above: Performed By: #### L [id number], L501.5200, L500.2500, L100.0100 #### [facility] [address] [place], [address] EST GFR - AA 72 mL/min Normal >60 [facility] Comment on above: Result Comment: Afri can Cypriot GFR Calc Performed By: #### L [id number], L501.5200, L500.2500, L100.0100 #### [facility] [address] [place], [address] GAP 4 Low 5-15 [facility] Comment on above: Performed By: #### L 501.9520, L501.5200, L500.2500, L100.0100 #### [facility] [address] [place], [address] GFR/1.73 sq M.predicted among non-blacks MDRD (S/P/Bld) [Vol rate/Area] 60 mL/min/{1.73_m2} Normal >60 [facility] Comment on above: Result Comment: Non- GFR Calc Performed By: #### L [id number], L501.5200, L500.2500, L100.0100 #### [facility] [address] [place], [address] Glucose [Mass/Vol] 118 mg/dL High 74-106 [facility] Comment on above: Result Comment: Fast ing Glucose result from 100 to 125 mg/dL suggests IMPAIRED HOMEOSTASIS per A.D.A. criteria. Performed By: #### L 501.9520, L501.5200, L500.2500, L100.0100 #### [facility] [address] [place], [address] Potassium [Moles/Vol] 4.3 mmol/L Normal 3.5-5.1 [facility] Comment on above: Result Comment: Slig ht Hemolysis, Result may be falsely increased. Performed By: #### L [id number], L501.5200, L500.2500, L100.0100 #### [facility] [address] [place], [address] Sodium [Moles/Vol] 140 mmol/L Normal 136-145 [facility] Comment on above: Performed By: #### L [id number], L501.5200, L500.2500, L100.0100 #### [facility] [address] [place], [address] Urea nitrogen [Mass/Vol] 18 mg/dL Normal 7-18 [facility] Comment on above: Performed By: #### L [id number], L501.5200, L500.2500, L100.0100 #### [facility] [address] [place], [address] CBC W/Diff, Automatedon 08 Absolute Lymph 1.21 X10 3/uL Normal 0.83-4.51 [facility] Comment on above: Performed By: #### L [id number], L501.5200, L500.2500, L100.0100 #### [facility] [address] [place], [address] Absolute Neut 6.5 X10 3/uL Normal 2.0-7.7 [facility] Comment on above: Performed By: #### L 501.9520, L501.5200, L500.2500, L100.0100 #### [facility] [address] [place], [address] Basophils/100 WBC (Bld) 1.2 % High 0-1 [facility] Comment on above: Performed By: #### L 501.9520, L501.5200, L500.2500, L100.0100 #### [facility] [address] [place], [address] Eosinophils/100 WBC (Bld) 0.8 % Normal 0-5 [facility] Comment on above: Performed By: #### L [id number], L501.5200, L500.2500, L100.0100 #### [facility] [address] [place], [address] Erythrocyte distribution width (RBC) [Ratio] 12.7 % Normal 11.6-14.6 [facility] Comment on above: Performed By: #### L [id number], L501.5200, L500.2500, L100.0100 #### [facility] [address] [place], [address] Hematocrit (Bld) [Volume fraction] 42.5 % Normal 40-54 [facility] Comment on above: Performed By: #### L [id number], L501.5200, L500.2500, L100.0100 #### [facility] [address] [place], [address] Hemoglobin (Bld) [Mass/Vol] 13.9 g/dL Normal 13.0-16.5 [facility] Comment on above: Performed By: #### L [id number], L501.5200, L500.2500, L100.0100 #### [facility] [address] [place], [address] IG% 0.400 Normal 0.0-0.9 [facility] Comment on above: Result Comment: IG% - Immature Granulocytes (promyelocytes, myelocytes and metamyelocytes) > 1% indicates that a LEFT SHIFT is Present. Performed By: #### L [id number], L501.5200, L500.2500, L100.0100 #### [facility] [address] [place], [address] Lymphocytes/100 WBC (Bld) 14.3 % Low 19-41 [facility] Comment on above: Performed By: #### L 501.9520, L501.5200, L500.2500, L100.0100 #### [facility] [address] [place], [address] MCH (RBC) [Entitic mass] 32.9 pg High 27.0-32.0 [facility] Comment on above: Performed By: #### L 501.9520, L501.5200, L500.2500, L100.0100 #### [facility] [address] [place], [address] MCHC (RBC) [Mass/Vol] 32.7 g/dL Normal 32-36 [facility] Comment on above: Performed By: #### L 501.9520, L501.5200, L500.2500, L100.0100 #### [facility] [address] [place], [address] MCV (RBC) [Entitic vol] 100.7 fL High 80-94 [facility] Comment on above: Performed By: #### L 501.9520, L501.5200, L500.2500, L100.0100 #### [facility] [address] [place], [address] Monocytes/100 WBC (Bld) 6.0 % Normal 0-10 [facility] Comment on above: Performed By: #### L 501.9520, L501.5200, L500.2500, L100.0100 #### [facility] [address] [place], [address] Neutrophils/100 WBC (Bld) 77.3 % High 47-70 [facility] Comment on above: Performed By: #### L 501.9520, L501.5200, L500.2500, L100.0100 #### [facility] [address] [place], [address] Nucleated RBC (Bld) [#/Vol] 0 10*3/uL Normal 0-5 [facility] Comment on above: Performed By: #### L 501.9520, L501.5200, L500.2500, L100.0100 #### [facility] [address] [place], [address] Platelet mean volume (Bld) [Entitic vol] 10.1 fL Normal 6.2-12.0 [facility] Comment on above: Performed By: #### L 501.9520, L501.5200, L500.2500, L100.0100 #### [facility] [address] [place], [address] Platelets (Bld) [#/Vol] 254 10*3/uL Normal 150-450 [facility] Comment on above: Performed By: #### L 501.9520, L501.5200, L500.2500, L100.0100 #### [facility] [address] [place], [address] RBC (Bld) [#/Vol] 4.22 10*6/uL Low 4.6-6.2 [facility] Comment on above: Performed By: #### L 501.9520, L501.5200, L500.2500, L100.0100 #### [facility] [address] [place], [address] RDW SD 47.1 fl High 35.1-43.9 [facility] Comment on above: Performed By: #### L 501.9520, L501.5200, L500.2500, L100.0100 #### [facility] [address] [place], [address] WBC (Bld) [#/Vol] 8.5 10*3/uL Normal 4.4-11.0 [facility] Comment on above: Performed By: #### L 501.9520, L501.5200, L500.2500, L100.0100 #### [facility] [address] [place], [address] Emergency Department Summary on 05-18-2024 Emergency Department Summary [facility] Medical Records Department [address] [place] [address] Emergency Department Summary 05/18/24 MR#: [id number] Acct: [id number] Name: NAVA HEALY Rep #: [id number] : 1945 79 From: Todd Burnham DO PCP: HARI Nunez Status:DEP ER Location: ED HPI History of Present Illness Chief Complaint: General Illness Informant: patient and EMS Narrative Narrative: Patient is a 79-year-old male with past medical history of Parkinson's disease. He states he does not take medication for it as he cannot deal with the side effects. He also has a history of hypothyroidism. He states he has been having increasing bouts of generalized weakness and difficulty walking. He reports that yesterday he was trying to go up the stairs while holding a few of his cats and he lost his balance and fell backwards striking the left side of his body against a wall. He denies striking his head or any loss of consciousness or history of bleeding disorder or blood thinner use. He states he has had pain in the left shoulder region as well as the left hip/leg. He reports that since that time he has had even further difficulty ambulating/getting around his house and therefore EMS was contacted [facility] Medical History (Updated 05/19/24 @ 02:[address] Todd Burnham, ) Parkinsons disease Osteoarthritis of carpometacarpal joint of left thumb Home Medications ???Medication ???Instructions ???Recorded ???Last Taken ???Type bwbpgjk-vnffsojnunogo-btmwt ine 250 1 tab PO ONCE 09/06/22 Unknown History mg-250 mg-65 mg tablet (Excedrin Extra Strength) levothyroxine 50 mcg tablet 50 mcg PO DAILY 05/18/24 Unknown History Allergy/AdvReac Type Severity Reaction Status Date / Time No Known Allergies Allergy Verified 05/18/24 01:09 Family History Other Arthritis Cancer Social History Smoking Status: Former smoker alcohol intake: never substance use type: does not use what type of physical activity do you participate in: none ROS ROS ED Constitutional Constitutional ED: Denies chills or fever(s) Eyes Eyes: Denies blurry vision or change in vision ENT ENT ED: Denies sore throat Cardiovascular Cardiovascular: Denies chest pain or palpitations Respiratory/Chest Respiratory/Chest: Denies cough or dyspnea Gastrointestinal Gastrointestinal: Denies abdominal pain, diarrhea, nausea or vomiting Genitourinary Genitourinary ED: Denies dysuria Musculoskeletal Musculoskeletal: Reports back pain and myalgias; Denies neck pain Integumentary Denies Abrasions or rash Neurologic Neurologic: Reports weakness; Denies headache(s) or paresthesias Hematologic/Lymphatic Hematologic/Lymphatic: Denies easy bleeding or easy bruising EXAM Physical Exam Const Vital Signs: 05/18/24 03:08 Pulse Rate 92 Respiratory Rate 18 Blood Pressure 155/99 H Blood Pressure Mean 117 Pulse Ox 92 Oxygen Delivery Method Room Air Positive well developed, cachectic and unkempt General Appearance ED: unkempt, well developed and cachectic; Negative for pallor Nutritional Appearance: cachectic HEENT Reports dry mucous membranes HEENT Narrative: Normocephalic atraumatic No signs of depressed or basilar skull fracture Mouth ED: Yes dry mucous membranes Mouth: dry mucous membranes Eyes PERRL and EOMs intact bilaterally General Eye ED: Negative for scleral icterus Neck supple Neck Narrative: No bony deformity or step-off of the cervical spine no midline tenderness to palpation Chest Wall palpation of chest normal Chest Narrative: No bony deformity or crepitance noted Resp normal respiratory effort and clear to auscultation bilaterally Resp Narrative: Breath sounds are diminished throughout but overall clear to auscultation without signs of respiratory distress Cardio regular rhythm Rate: tachycardic and other Other Details: Tachycardic rate with regular rhythm GI normal to inspection, nondistended, normoactive bowel sounds, non-tender, non-distended and no masses Auscultation: normoactive bowel sounds Palpation: soft Back/Spine Back/Spine Narrative: No bony deformity or step-off of the thoracic or lumbar spine. There is pain on palpation of the upper lumbar vertebral region. No overlying abrasions or ecchymosis Extremity Extremity Narrative: Pelvis is stable there is no shortening or external rotation of either lower extremity. There is no obvious bony deformity or joint effusion. There is full passive range of motion without pain. Active range of motion is decreased secondary to weakness. Compartments are soft and compressible going against compartment syndrome. No ligamentous or tendon laxity noted Neuro oriented x3 and (more content not included)... Normal [facility] Femur Min 2 Viewson 05-18-20 Femur Min 2 Views [facility] [address] [place] [address] Femur Min 2 Views MR#: [id number] Acct: [id number] Name: NAVA HEALY Rep #: [id number] : 1945 M 79 From: Nicole Butler PCP: HARI Nunez Status: DEP ER Study: Femur Min 2 Views Date of Exam: 05/18/24 Exam# [id number] Ordering Dr: Todd Burnham DO [id number] INDICATION: pain MULTIPLE FALLS OVER LAST COUPLE DAYS EXAMINATION/TECHNIQUE: X-RAY - LEFT XR Femur Min 2 Views 4 VIEWS COMPARISON: No relevant prior comparison study available FINDINGS: BONES: No fracture demonstrated. JOINTS: No dislocation. SOFT TISSUES: Unremarkable. RAD/Femur Min 2 Views IMPRESSION: No evidence of fracture. Electronically Signed: Nicole Sommer MD at 4:59 EDT , CC: Todd Burnham DO; HARI Nunez Advertising Copy Writer: Signed Normal [facility] Magnesiumon 05-18-2024 Magnesium [Mass/Vol] 2.7 mg/dL High 1.6-2.6 [facility] Comment on above: Result Comment: Slig ht Hemolysis, Result may be falsely increased. Performed By: #### L 501.9520, L501.5200, L500.2500, L100.0100 #### [facility] [address], [address] Pelvis 1 or 2 Viewson 2023 Pelvis 1 or 2 Views [facility] [address] [place], [place] [address] Pelvis 1 or 2 Views MR#: [id number] Acct: [id number] Name: NAVA HEALY Rep #: [id number] : 1945 M 79 From: Nicole Butler PCP: HARI Nunez Status: DEP ER Study: Pelvis 1 or 2 Views Date of Exam: 05/18/24 Exam# [id number] Ordering Dr: Todd Burnham DO [id number] INDICATION: pain MULTIPLE FALLS OVER LAST COUPLE DAYS EXAMINATION/TECHNIQUE: X-RAY - XR Pelvis 1 or 2 Views COMPARISON: No relevant prior comparison study available FINDINGS: No fracture demonstrated. Femoral heads are normal in contour. No dislocation at the hips. Degenerative changes at the lower lumbar spine. RAD/Pelvis 1 or 2 Views IMPRESSION: No evidence of fracture. Electronically Signed: Nicole Sommer MD at 4:58 EDT Reading Location ID and State: [facility] / [place] Tel , Service support , CC: Todd Burnham DO; HARI Nunez Advertising Copy Writer: Signed Normal [facility] Thoracic Spine 3 Viewson Thoracic Spine 3 Views [facility] Imaging Services [address] [place], [place] [address] Thoracic Spine 3 Views MR#: [id number] Acct: [id number] Name: NAVA HEALY Rep #: [id number] : 1945 M 79 From: Nicole Butler PCP: HARI Nunez Status: DEP ER Study: Thoracic Spine 3 Views Date of Exam: 05/18/24 Exam# [id number] Ordering Dr: Todd Burnham DO [id number] INDICATION: pain MULTIPLE FALLS OVER LAST COUPLE DAYS EXAMINATION/TECHNIQUE: X-RAY - XR Spine Thoracic 3 Views COMPARISON: FINDINGS: The vertebral bodies are normal in height. No definite fracture demonstrated. No subluxation. Mild curvature convex right. No paravertebral soft tissue mass identified. RAD/Thoracic Spine 3 Views IMPRESSION: No evidence of fracture or subluxation. Electronically Signed: Nicole Sommer MD at 5:00 EDT , CC: Todd Burnham DO; HARI Nunez Advertising Copy Writer: Signed Normal [facility] Thyroid Stim Hormone (TSH)on 05-18-2024 TSH 1.140 uIU/mL Normal 0.358-3.740 [facility] Comment on above: Performed By: #### L 501.9520, L501.5200, L500.2500, L100.0100 #### [facility] [address] [place], [address] [facility] 05-05-2024 [facility] Telephone (NREUS2) NAVA HEALY ([id number]) 1945 M Date Time Provider Department 05/05/24 ELLIE CORTES NREUS2 During your visit today, we recorded the following information about you: Ellie Cortes, Research Coordinator 05/05/2024 3:16 PM Signed LVM regarding PDGene study. Ellie Cortes, Yoke Setter Allergies As of Date: 05/05/2024 Noted Allergy Reaction BANANA 10/13/2018 8 - GI Upset Comments: bloating Date Reviewed: 04/06/2024 Reviewed by: Pradeep Angel LPN - Fully Assessed Reason for Visit: Research [293] Cmt: IRB [id number] Prescriptions as of 05/05/2024 - levothyroxine (SYNTHROID) 50 mcg tablet take 1 tablet by mouth every morning ON AN EMPTY STOMACH FOR THYROID - melatonin 1 mg chew Take by mouth. - Mtqouoq-Ehktgrhxpnmlf-Drbiq ine (EXCEDRIN) 250-250-65 mg per tablet Take 1 tablet by mouth every 6 hours as needed. - vitamin B complex (B COMPLEX ORAL) Take by mouth. Problem List As Of Date 05/05/2024 Noted Resolved Acquired hypothyroidism [E03.9] 05/06/2016 DDD (degenerative disc disease), lumbar [M51.36]10/13/2018 Lumbar foraminal stenosis [M48.061] 05/11/2021 Parkinson's syndrome (HCC) [G20.A1] 10/30/2022 Encounter Status:Closed by ELLIE CORTES on 05/05/24 [facility] Trisha 04-17-2024 CNPN Telephone (NREUS2) NAVA HEALY ([id number]) 1945 M Date Time Provider Department 04/17/24 ALLEN MERRILL NRJESENIAS2 During your visit today, we recorded the following information about you: Allen Merrill, Research Coordinator 04/17/2024 11:28 AM Signed Attempted to contact the patient regarding Tele-MAMMA LOGIST study. [facility] Allen Merrill, Research Coordinator 04/21/2024 12:16 PM Signed Pt returned call regarding VM left about Tele-MAMMA LOGIST. Pt is mostly interested in stem cell treatments or studies. Pt has concerns about transportation to [place] from place of residence and does not want to participate in Tele-MAMMA LOGIST. Pt was interested in learning more about PDGene. Will pass on info to PDGene Coordinators. Allergies As of Date: 04/17/2024 Noted Allergy Reaction BANANA 10/13/2018 8 - GI Upset Comments: bloating Date Reviewed: 04/06/2024 Reviewed by: Pradeep Angel LPN - Fully Assessed Primary Visit Diagnosis:Research subject [Z00.6] Prescriptions as of 04/21/2024 - levothyroxine (SYNTHROID) 50 mcg tablet take 1 tablet by mouth every morning ON AN EMPTY STOMACH FOR THYROID - melatonin 1 mg chew Take by mouth. - Voxfkyz-Epbaoagiqwguq-Xajor ine (EXCEDRIN) 250-250-65 mg per tablet Take 1 tablet by mouth every 6 hours as needed. - vitamin B complex (B COMPLEX ORAL) Take by mouth. Problem List As Of Date 04/17/2024 Noted Resolved Acquired hypothyroidism [E03.9] 05/06/2016 DDD (degenerative disc disease), lumbar [M51.36]10/13/2018 Lumbar foraminal stenosis [M48.061] 05/11/2021 Parkinson's syndrome (HCC) [G20.A1] 10/30/2022 Encounter Status:Closed by ALLEN MERRILL on 04/17/24 [facility] Trisha 04-15-2024 [facility] Telephone ([facility]) NAVA HEALY ([id number]) 1945 M Date Time Provider Department 04/15/24 YINKA LAMA [facility] During your visit today, we recorded the following information about you: Serenity Baer 04/15/2024 2:59 PM Signed Received a call from Nava with questions about possible genetic treatments/therapies for Parkinson's disease. Discussed that I am not a clinical provider, but that I will send his question over to our clinical team to get an answer to his question and give him a call back. He understood and thanked me for the help. Serenity Baer Genetic Counselor Supervisor [employer] Serenity Baer 04/22/2024 10:16 AM Signed Reached out to [place] to discuss that there aren't any specific gene therapies approved for PD yet. Left a detailed VM on an identified Vm Box. Discussed that he can be seen in clinical genetics and we can help coordinate genetic testing for PD. Discussed that we would need a referral from any of his providers for him to be seen in genetics clinic. Also discussed that we are doing a clinical trial at [facility] for GBA-related PD. Discussed that it looks like someone also was trying to get him in contact with the PDGene study. Provided [facility] line for a call back with questions. Serenity Baer Genetic Counselor Supervisor [employer] Allergies As of Date: 04/15/2024 Noted Allergy Reaction BANANA 10/13/2018 8 - GI Upset Comments: bloating Date Reviewed: 04/06/2024 Reviewed by: Pradeep Angel LPN - Fully Assessed Reason for Visit: Patient Question [1217] Cmt: Genetics Prescriptions as of 04/22/2024 - levothyroxine (SYNTHROID) 50 mcg tablet take 1 tablet by mouth every morning ON AN EMPTY STOMACH FOR THYROID - melatonin 1 mg chew Take by mouth. - Ptxjnyv-Xewkjychyccyh-Luvut ine (EXCEDRIN) 250-250-65 mg per tablet Take 1 tablet by mouth every 6 hours as needed. - vitamin B complex (B COMPLEX ORAL) Take by mouth. Problem List As Of Date 04/15/2024 Noted Resolved Acquired hypothyroidism [E03.9] 05/06/2016 DDD (degenerative disc disease), lumbar [M51.36]10/13/2018 Lumbar foraminal stenosis [M48.061] 05/11/2021 Parkinson's syndrome (HCC) [G20.A1] 10/30/2022 Encounter Status:Closed by SERENITY BAER on 04/15/24 Normal [facility] HbA1c (Bld)on 04-09-2024 Average glucose Estimated from glycated hemoglobin (Bld) [Mass/Vol] 114 mg/dL [facility] Comment on above: eAG: (Estimated aver age glucose) is a calculated value from HgbA1c and is factory representative of the average blood glucose level in the last 2-3 month period. HbA1c (Bld) [Mass fraction] 5.6 % 4.3 - 5.6 % [facility] Comment on above: [place] Diabetes As sociation guidelines indicate that patients with HgbA1c in the range 5.7-6.4% are at increased risk for development of diabetes, and intervention by lifestyle modification may be beneficial. HgbA1c greater or equal to 6.5% is considered diagnostic of diabetes. [facility] Trisha 04-07-2024 NIRANJAN Telephone (FAMPWS) NAVA HEALY ([id number]) 1945 M Date Time Provider Department 04/07/24 VIOLA PHELPS During your visit today, we recorded the following information about you: Shahla Boss LPN 04/07/2024 2:58 PM Signed OV: 04/06/24 Pt reports he had labs done yesterday but has been thinking he needs his sugar tested. 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 Advised pt that part of the [facility] lab is testing (Glucose) and if the number is normal usually there is no need to do further testing like a A1C. Pt reports he does not care if his number is in the normal range he wants the advanced test done. Please review and advise. INDIRA Palmer Christy, APRN.JEZ 04/08/2024 4:50 PM Signed A1C added -- can we please check with lab if A1C can be added to labs already drawn. Viola Phelps APRN.Chary Godinez LPN 04/09/2024 8:45 AM Signed Lab was added on. INDIRA Ernandez Jacqueline A, APRN.JEZ 04/09/2024 1:44 PM Signed Please see if the lab can check a B12 and folate off of the blood work that was already sent. Noelle Gruber MA 04/09/2024 2:17 PM Signed Unable to add B12 and Folate to labs already collected. Pt will need to come back to lab to get those drawn. Noelle Gruber MA, Viola Phelps APRN.[employer]AL[employer] 04/10/2024 12:54 PM Signed Can please let patient know that I received some of his test results. His A1C was within normal. There is no diabetes. His prostate enzyme crept up a little bit, but is still in the age corrected normal range. See additional directions in Jane earlier in this encounter. Viola Phelps APRN.Pradeep Gaspar LPN 04/10/2024 2:05 PM Signed TC to lab client services, they will add on Folate and Vit B12. INDIRA Peters Jamie, LPN 04/10/2024 2:05 PM Signed TC to pt, left detailed message with results/provider response on secure identified voicemail. Pt only to return call to office /c any questions or concerns. Pradeep Angel LPN Allergies As of Date: 04/07/2024 Noted Allergy Reaction BANANA 10/13/2018 8 - GI Upset Comments: bloating Date Reviewed: 04/06/2024 Reviewed by: Pradeep Angel LPN - Fully Assessed Reason for Visit: Lab Orders [0628] Results [95] Primary Visit Diagnosis:Generalized weakness [R53.1] Other Visit Diagnosis:Abnormal finding of blood chemistry, unspecified [R79.9] Order(s):HEMOGLOBIN A1C [EGBTW5J] Order #: [id number] FUTURE Prescriptions as of 04/10/2024 - levothyroxine (SYNTHROID) 50 mcg tablet take 1 tablet by mouth every morning ON AN EMPTY STOMACH FOR THYROID - melatonin 1 mg chew Take by mouth. - Bdhkzgv-Encivxrjrlyzr-Iaqlp ine (EXCEDRIN) 250-250-65 mg per tablet Take 1 tablet by mouth every 6 hours as needed. - vitamin B complex (B COMPLEX ORAL) Take by mouth. Problem List As Of Date 04/07/2024 Noted Resolved Acquired hypothyroidism [E03.9] 05/06/2016 DDD (degenerative disc disease), lumbar [M51.36]10/13/2018 Lumbar foraminal stenosis [M48.061] 05/11/2021 Parkinson's syndrome (HCC) [G20.A1] 10/30/2022 Encounter Status:Closed by PRADEEP ANGEL on 04/10/24 Normal [facility] CBC W Auto Differential pane l (Bld)on 04-06-2024 Basophils (Bld) [#/Vol] 0.11 10*3/uL High <0.11 [facility] Comment on above: Order Comment: Speci men Type: BLOOD SPECIMEN Ordering Facility: [facility] Address: [address] [place] [address] Performed By: #### 5 7021-8, 45986-6 #### [facility] CLIA [id number] [address] [place] [address] [place] Basophils/100 WBC (Bld) 1.8 % Normal [facility] Comment on above: Order Comment: Speci men Type: BLOOD SPECIMEN Ordering Facility: [facility] Address: [address] [place] [address] Performed By: #### 5 7021-8, 93457-4 #### [facility] CLIA [id number] [address] [place] [address] [place] Differential cell count method Nom (Bld) Auto Normal [facility] Comment on above: Order Comment: Speci men Type: BLOOD SPECIMEN Ordering Facility: [facility] Address: [address] [place] [address] Performed By: #### 5 7021-8, 60678-5 #### [facility] CLIA [id number] [address] [place] [address] [place] Eosinophils (Bld) [#/Vol] 0.22 10*3/uL Normal <0.46 [facility] Comment on above: Order Comment: Speci men Type: BLOOD SPECIMEN Ordering Facility: [facility] Address: [address] [place] [address] Performed By: #### 5 7021-8, 03767-0 #### [facility] CLIA [id number] [address] [place] [address] [place] Eosinophils/100 WBC (Bld) 3.7 % Normal [facility] Comment on above: Order Comment: Speci men Type: BLOOD SPECIMEN Ordering Facility: [facility] Address: [address] [place] [address] Performed By: #### 5 7021-8, 18838-0 #### [facility] CLIA [id number] [address] [place] [address] [place] Erythrocyte distribution width (RBC) [Ratio] 13.1 % Normal 11.5-15.0 [facility] Comment on above: Order Comment: Speci men Type: BLOOD SPECIMEN Ordering Facility: [facility] Address: [address] [place] [address] Performed By: #### 5 7021-8, 55525-8 #### [facility] CLIA [id number] [address] [place] [address] [place] Hematocrit (Bld) [Volume fraction] 43.2 % Normal 39.0-51.0 [facility] Comment on above: Order Comment: Speci men Type: BLOOD SPECIMEN Ordering Facility: [facility] Address: [address] [place] [address] Performed By: #### 5 7021-8, 72654-5 #### [facility] CLIA [id number] [address] [place] [address] [place] Hemoglobin (Bld) [Mass/Vol] 14.3 g/dL Normal 13.0-17.0 [facility] Comment on above: Order Comment: Speci men Type: BLOOD SPECIMEN Ordering Facility: [facility] Address: [address] [place] [address] Performed By: #### 5 7021-8, 70139-8 #### [facility] CLIA [id number] [address] [place] [address] [place] Immature granulocytes (Bld) [#/Vol] 10*3/uL Normal <0.10 [facility] Comment on above: Order Comment: Speci men Type: BLOOD SPECIMEN Ordering Facility: [facility] Address: [address] [place] [address] Performed By: #### 5 7021-8, 35372-2 #### [facility] CLIA [id number] [address] [place] [address] [place] Immature granulocytes/100 WBC (Bld) 0.3 % Normal [facility] Comment on above: Order Comment: Speci men Type: BLOOD SPECIMEN Ordering Facility: [facility] Address: [address] [place] [address] Performed By: #### 5 7021-8, 74551-8 #### [facility] CLIA [id number] [address] [place] [address] [place] Lymphocytes (Bld) [#/Vol] 1.26 10*3/uL Normal 1.00-4.00 [facility] Comment on above: Order Comment: Speci men Type: BLOOD SPECIMEN Ordering Facility: [facility] Address: [address] [place] [address] Performed By: #### 5 7021-8, 00307-0 #### [facility] CLIA [id number] [address] [place] [address] [place] Lymphocytes/100 WBC (Bld) 21.0 % Normal [facility] Comment on above: Order Comment: Speci men Type: BLOOD SPECIMEN Ordering Facility: [facility] Address: [address] [place] [address] Performed By: #### 5 7021-8, 99751-7 #### [facility] CLIA [id number] [address] [place] [address] [place] MCH (RBC) [Entitic mass] 34.2 pg High 26.0-34.0 [facility] Comment on above: Order Comment: Speci men Type: BLOOD SPECIMEN Ordering Facility: [facility] Address: [address] [place] [address] Performed By: #### 5 7021-8, 51853-7 #### [facility] CLIA [id number] [address] [place] [address] [place] MCHC (RBC) [Mass/Vol] 33.1 g/dL Normal 30.5-36.0 [facility] Comment on above: Order Comment: Speci men Type: BLOOD SPECIMEN Ordering Facility: [facility] Address: [address] [place] [address] Performed By: #### 5 7021-8, 11743-7 #### [facility] CLIA [id number] [address] [place] [address] [place] MCV (RBC) [Entitic vol] 103.3 fL High 80.0-100.0 [facility] Comment on above: Order Comment: Speci men Type: BLOOD SPECIMEN Ordering Facility: [facility] Address: [address] [place] [address] Performed By: #### 5 7021-8, 51498-3 #### [facility] CLIA [id number] [address] [place] [address] [place] Monocytes (Bld) [#/Vol] 0.55 10*3/uL Normal <0.87 [facility] Comment on above: Order Comment: Speci men Type: BLOOD SPECIMEN Ordering Facility: [facility] Address: [address] [place] [address] Performed By: #### 5 7021-8, 16032-6 #### [facility] CLIA [id number] [address] [place] [address] [place] Monocytes/100 WBC (Bld) 9.2 % Normal [facility] Comment on above: Order Comment: Speci men Type: BLOOD SPECIMEN Ordering Facility: [facility] Address: [address] [place] [address] Performed By: #### 5 7021-8, 23292-7 #### [facility] CLIA [id number] [address] [place] [address] [place] Neutrophils (Bld) [#/Vol] 3.84 10*3/uL Normal 1.45-7.50 [facility] Comment on above: Order Comment: Speci men Type: BLOOD SPECIMEN Ordering Facility: [facility] Address: [address] [place] [address] Performed By: #### 5 7021-8, 03160-9 #### [facility] CLIA [id number] [address] [place] [address] [place] Neutrophils/100 WBC (Bld) 64.0 % Normal [facility] Comment on above: Order Comment: Speci men Type: BLOOD SPECIMEN Ordering Facility: [facility] Address: [address] [place] [address] Performed By: #### 5 7021-8, 51722-4 #### [facility] CLIA [id number] [address] [place] [address] [place] Nucleated RBC (Bld) [#/Vol] 10*3/uL Normal <0.01 [facility] Comment on above: Order Comment: Speci men Type: BLOOD SPECIMEN Ordering Facility: [facility] Address: [address] [place] [address] Performed By: #### 5 7021-8, 44118-1 #### [facility] CLIA [id number] [address] [place] [address] [place] Nucleated RBC/100 WBC (Bld) [Ratio] 0.0 /100 WBC Normal [facility] Comment on above: Order Comment: Speci men Type: BLOOD SPECIMEN Ordering Facility: [facility] Address: [address] [place] [address] Performed By: #### 5 7021-8, 07720-0 #### [facility] CLIA [id number] [address] [place] [address] [place] Platelet mean volume (Bld) [Entitic vol] 11.0 fL Normal 9.0-12.7 [facility] Comment on above: Order Comment: Speci men Type: BLOOD SPECIMEN Ordering Facility: [facility] Address: [address] [place] [address] Performed By: #### 5 7021-8, 89345-9 #### [facility] CLIA [id number] [address] [place] [address] [place] Platelets (Bld) [#/Vol] 237 10*3/uL Normal 150-400 [facility] Comment on above: Order Comment: Speci men Type: BLOOD SPECIMEN Ordering Facility: [facility] Address: [address] [place] [address] Performed By: #### 5 7021-8, 20038-1 #### [facility] CLIA [id number] [address] [place] [address] [place] RBC (Bld) [#/Vol] 4.18 10*6/uL Low 4.20-6.00 [facility] Comment on above: Order Comment: Speci men Type: BLOOD SPECIMEN Ordering Facility: [facility] Address: [address] [place] [address] Performed By: #### 5 7021-8, 49945-9 #### [facility] CLIA [id number] [address] [place] [address] [place] WBC (Bld) [#/Vol] 6.00 10*3/uL Normal 3.70-11.00 [facility] Comment on above: Order Comment: Speci men Type: BLOOD SPECIMEN Ordering Facility: [facility] Address: [address] [place] [address] Performed By: #### 5 7021-8, 00949-8 #### [facility] CLIA [id number] [address] [place] [address] [place] CNOVon 04-06-2024 CNOV Office Visit ([facility] ) NAVA HEALY ([id number]) 1945 M Date Time Provider Department 04/06/24 3:00 PM VIOLA PHELPS During your visit today, we recorded the following information about you: Pulse Respiration Blood pressure 82/minute 16/minute 130/88 Viola Phelps APRN.[employer] 04/06/2024 8:22 PM Signed This is a 79 year old male who presents today with: Patient presents with: Recheck: Follow up- medication refills HISTORY OF PRESENT ILLNESS: Nava Healy is a 79 year old male. Patient presents with: Recheck: Follow up- medication refills Pt presents today for recheck/refills. + parkinson's. Following with neuro. He has expressed an interest in stem cell/gene therapy. Has been playing phone tag with research department. Gets palpitations. Refers several times daily. Can last 30 seconds. Refers that he also will get dizziness or flood of heat -- sometimes with palpitations, but can happen separately. No chest pain. Restless legs. More recent onset. Skin: Dry scaly itchy Applies lotion once in awhile. Nocturia Gets up 3-4 times nightly. Attributes to fluid intake prior to bedtime. PAST MEDICAL HISTORY: PAST MEDICAL HISTORY Diagnosis Date Hypothyroidism (acquired) age 68 PAST SURGICAL HISTORY Procedure Laterality Date TONSILLECTOMY AND ADENOIDECTOMY HX ALLERGIES Banana MEDICATIONS Current Outpatient Medications Medication Sig levothyroxine (SYNTHROID) 50 mcg tablet take 1 tablet by mouth every morning ON AN EMPTY STOMACH FOR THYROID melatonin 1 mg chew Take by mouth. Rinurne-Yeaqfkeemumtn-Xmbjq ine (EXCEDRIN) 250-250-65 mg per tablet Take 1 tablet by mouth every 6 hours as needed. vitamin B complex (B COMPLEX ORAL) Take by mouth. No current facility-administered medications for this visit. FAMILY HISTORY Problem Relation Age of Onset Cancer Mother ? uterine Alcohol/Drug Father esophageal varices Alzheimer's Disease Maternal Grandmother Social History Tobacco Use Smoking status: Former Smokeless tobacco: Never Tobacco comments: 1PPD x 8-10 years Vaping Use Vaping Use: Never used Substance Use Topics Alcohol use: No Comment: drank some in the past Drug use: Not Currently Types: Marijuana Comment: remote marijuana EXAM: BP 130/88 Pulse 82 Resp 16 SpO2 99% PHYSICAL EXAM: General Appearance: Well appearing, alert, in no acute distress, well-hydrated, well nourished.. Skin: Skin color, texture, turgor normal, no suspicious rashes or lesions.. widespread dry, scaly skin. Head: Normocephalic, no masses, lesions, tenderness or abnormalities. Eyes: Anicteric sclera. Extraocular movements are intact. . Lungs: Lungs clear to auscultation. No wheezing, rhonchi, rales.. Heart: RRR without murmur, gallop, or rubs. No ectopy. Extremities: No deformities, edema, skin discoloration, clubbing or cyanosis. Good capillary refill. . Neurologic: ambulates w/ cane. Parkinson's appearance. ASSESSMENT/PLAN: 1. Parkinson's disease with dyskinesia and fluctuating manifestations (HCC) - ICD9: 332.0, ICD10: G20.B2 (primary diagnosis) Continue per neurology. 2. Acquired hypothyroidism - ICD9: 244.9, ICD10: E03.9 Get labs. - LEVOTHYROXINE 50 MCG TABLET - MAGNESIUM 3. Palpitations - ICD9: 785.1, ICD10: R00.2 EKG SR with RBBB. No ectopy or ST changes. Will get echo. Patient with check with [employer] customer service and let us know if okay to proceed with event monitor. - ECG COMPLETE - ECHO - PERFLUTREN LIPID MICROSPHERES 1.1 MG/ML INJECTION IN NS 10 ML - SODIUM CHLORIDE 0.9 % (FLUSH) INJECTION SYRINGE 4. Restless legs - ICD9: 333.94, ICD10: G25.81 Newer onset. Will check ferritin w/ labs. - IRON AND TIBC - FERRITIN 5. Pruritus, unspecified - ICD9: 698.9, ICD10: L29.9 As above. - IRON AND TIBC - FERRITIN 6. Family hx of aortic aneurysm - ICD9: V17.49, ICD10: Z82.49 Reports brother had AAA. - US SCREENING FOR AAA 7. Screening for prostate cancer - ICD9: V76.44, ICD10: Z12.5 - PSA/PROSTATE SPECIFIC ANTIGEN SCREENING Discussed treatment plan and patient voices understanding. Patient's questions answered appropriately. Medications and potential side effects were discussed and patient voices understanding. Return to the office as scheduled or as needed for worsening/no improvement. Viola Phelps APRN.Viola Wong APRN.CNP 04/06/2024 4:01 PM Addendum Get labwork. Check with the [employer] customer service re: coverage for the heart monitor. Schedule echocardiogram. Schedule aorta ultrasound. Allergies As of Date: 04/06/2024 Noted Allergy Reaction BANANA 10/13/2018 8 - GI Upset Comments: bloating Date Reviewed: 04/06/2024 Reviewed by: Pradeep Angel LPN - Fully Assessed Reason for Visit: Recheck [92] Cmt: Follow up- medication refills Primary Visit Diagnosis:Parkinson's disease with dyski (more content not included)... Normal [facility] Comprehensive metabolic 2000 panelon 04-06-2024 Albumin [Mass/Vol] 4.1 g/dL Normal 3.9-4.9 [facility] Comment on above: Order Comment: Speci men Type: BLOOD SPECIMEN Ordering Facility: [facility] Address: [address] [place] [address] Performed By: #### 5 7021-8, 95005-0 #### [facility] CLIA [id number] [address] [place] [address] [place] ALP [Catalytic activity/Vol] 62 U/L Normal 38-113 [facility] Comment on above: Order Comment: Speci men Type: BLOOD SPECIMEN Ordering Facility: [facility] Address: [address] [place] [address] Performed By: #### 5 7021-8, 64773-6 #### [facility] CLIA [id number] [address] [place] [address] [place] ALT [Catalytic activity/Vol] 15 U/L Normal 10-54 [facility] Comment on above: Order Comment: Speci men Type: BLOOD SPECIMEN Ordering Facility: [facility] Address: [address] [place] [address] Performed By: #### 5 7021-8, 90151-6 #### [facility] CLIA [id number] [address] [place] [address] [place] Anion gap [Moles/Vol] 14 mmol/L Normal 8-15 [facility] Comment on above: Order Comment: Speci men Type: BLOOD SPECIMEN Ordering Facility: [facility] Address: [address] [place] [address] Performed By: #### 5 7021-8, 28078-4 #### [facility] CLIA [id number] [address] [place] [address] [place] AST [Catalytic activity/Vol] 22 U/L Normal 14-40 [facility] Comment on above: Order Comment: Speci men Type: BLOOD SPECIMEN Ordering Facility: [facility] Address: [address] [place] [address] Performed By: #### 5 7021-8, 67969-1 #### [facility] CLIA [id number] [address] [place] [address] [place] Bilirubin [Mass/Vol] 0.4 mg/dL Normal 0.2-1.3 [facility] Comment on above: Order Comment: Speci men Type: BLOOD SPECIMEN Ordering Facility: [facility] Address: [address] [place] [address] Performed By: #### 5 7021-8, 89974-5 #### [facility] CLIA [id number] [address] [place] [address] [place] Calcium [Mass/Vol] 9.6 mg/dL Normal 8.5-10.2 [facility] Comment on above: Order Comment: Speci men Type: BLOOD SPECIMEN Ordering Facility: [facility] Address: [address] [place] [address] Performed By: #### 5 7021-8, 48087-4 #### [facility] CLIA [id number] [address] [place] [address] [place] Chloride [Moles/Vol] 106 mmol/L Normal 98-107 [facility] Comment on above: Order Comment: Speci men Type: BLOOD SPECIMEN Ordering Facility: [facility] Address: [address] [place] [address] Performed By: #### 5 7021-8, 11342-1 #### [facility] CLIA [id number] [address] [place] [address] [place] CO2 [Moles/Vol] 21 mmol/L Low 22-30 [facility] Comment on above: Order Comment: Speci men Type: BLOOD SPECIMEN Ordering Facility: [facility] Address: [address] [place] [address] Performed By: #### 5 7021-8, 03160-6 #### [facility] CLIA [id number] [address] [place] [address] [place] Creatinine [Mass/Vol] 0.95 mg/dL Normal 0.73-1.22 [facility] Comment on above: Order Comment: Speci men Type: BLOOD SPECIMEN Ordering Facility: [facility] Address: [address] [place] [address] Performed By: #### 5 7021-8, 89753-5 #### [facility] CLIA [id number] [address] [place] [address] [place] Creatinine and Glomerular filtration rate.predicted panel (S/P/Bld) 81 mL/min/1.73m??? Normal >=60 [facility] Comment on above: Order Comment: Speci men Type: BLOOD SPECIMEN Ordering Facility: [facility] Address: [address] [place] [address] Result Comment: Cecy mated Glomerular Filtration Rate (eGFR) is calculated using the 2020 CKD-EPI creatinine equation. This equation utilizes serum creatinine, sex, and age as parameters. The creatinine assay has traceable calibration to isotope dilution-mass spectrometry. Refer to KDIGO guidelines for clinical interpretation. In patients with unstable renal function, e.g. those with acute kidney injury, the eGFR may not accurately reflect actual GFR. Performed By: #### 5 7021-8, 64285-2 #### [facility] CLIA [id number] [address] [place] [address] [place] Glucose [Mass/Vol] 98 mg/dL Normal 74-99 [facility] Comment on above: Order Comment: Evelyn polo Type: BLOOD SPECIMEN Ordering Facility: [facility] Address: [address] [place] [address] Result Comment: The [place] Diabetes Association (ADA) provides guidance for cutoff values for fasting glucose and random glucose. The ADA defines fasting as no caloric intake for at least 8 hours. Fasting plasma glucose results between 100 to 125 mg/dL indicate increased risk for diabetes (prediabetes). Fasting plasma glucose results greater than or equal to 126 mg/dL meet the criteria for diagnosis of diabetes. In the absence of unequivocal hyperglycemia, results should be confirmed by repeat testing. In a patient with classic symptoms of hyperglycemia or hyperglycemic crisis, random plasma glucose results greater than or equal to 200 mg/dL meet the criteria for diagnosis of diabetes. Reference: Standards of Medical Care in Diabetes 2016, [place] Diabetes Association. Diabetes Care. 2016.39(Suppl 1). Performed By: #### 5 7021-8, 05097-8 #### [facility] CLIA [id number] [address] [place] [address] [place] Potassium [Moles/Vol] 4.3 mmol/L Normal 3.7-5.1 [facility] Comment on above: Order Comment: Evelyn polo Type: BLOOD SPECIMEN Ordering Facility: [facility] Address: [address] [place] [address] Performed By: #### 5 7021-8, 86069-1 #### [facility] CLIA [id number] [address] [place] [address] [place] Protein [Mass/Vol] 7.2 g/dL Normal 6.3-8.0 [facility] Comment on above: Order Comment: Speci men Type: BLOOD SPECIMEN Ordering Facility: [facility] Address: [address] [place] [address] Performed By: #### 5 7021-8, 98251-2 #### [facility] CLIA [id number] [address] [place] [address] [place] Sodium [Moles/Vol] 141 mmol/L Normal 136-144 [facility] Comment on above: Order Comment: Speci men Type: BLOOD SPECIMEN Ordering Facility: [facility] Address: [address] [place] [address] Performed By: #### 5 7021-8, 66852-8 #### [facility] CLIA [id number] [address] [place] [address] [place] Urea nitrogen [Mass/Vol] 12 mg/dL Normal 9-24 [facility] Comment on above: Order Comment: Speci men Type: BLOOD SPECIMEN Ordering Facility: [facility] Address: [address] [place] [address] Performed By: #### 5 7021-8, 83732-3 #### [facility] CLIA [id number] [address] [place] [address] [place] ECG COMPLETEon 04-06-2024 ECG COMPLETE Ventricular Rate : 6 4 BPM Atrial Rate : 64 BPM P-R Interval : 160 ms QRS Duration : 114 ms Q-T Interval : 416 ms QTC Calculation(Bazett) : 429 ms Calculated P Brighton : 9 degrees Calculated R Brighton : 59 degrees Calculated T Brighton : 9 degrees NORMAL SINUS RHYTHM WITH SINUS ARRHYTHMIA COMPLETE RIGHT BUNDLE BRANCH BLOCK ABNORMAL ECG Confirmed by MD JOSHUA GREGORY () on 04/07/2024 9:53:32 AM NAME : NAVA HEALY PID : [id number] : 1945 Gender : Male Race : ORD : [id number] Procedure Date : Apr 06 2024 16:33:04 Edit Date : Apr 07 2024 09:53:33 Diagnosis: NORMAL SINUS RHYTHM WITH SINUS ARRHYTHMIA COMPLETE RIGHT BUNDLE BRANCH BLOCK ABNORMAL ECG Confirmed by MD JOSHUA GREGORY () on 04/07/2024 9:53:32 AM Test Reason : R00.2 Palpitations Location : 185 : [facility] Overread By : MD JOSHUA GREGORY Edited By : MD JOSHUA GREGORY Referred By : VIOLA PHELPS Acquired by : Linsey ANGEL Normal [facility] Ferritin SerPl-mCncon 2023 Ferritin [Mass/Vol] 49.7 ng/mL Normal 30.3-565.7 [facility] Comment on above: Order Comment: Evelyn polo Type: BLOOD SPECIMEN Ordering Facility: [facility] Address: [address] [place] [address] Performed By: #### 2 4323-8, 3024-7, 3016-3 #### [facility] CLIA [id number] [address] [place] [address] [place] HbA1c (Bld)on 04-06-2024 Average glucose Estimated from glycated hemoglobin (Bld) [Mass/Vol] 114 mg/dL Normal [facility] Comment on above: Order Comment: vEelyn polo Type: BLOOD SPECIMEN Ordering Facility: [facility] Address: [address] [place] [address] Result Comment: eAG: (Estimated average glucose) is a calculated value from HgbA1c and is factory representative of the average blood glucose level in the last 2-3 month period. Performed By: #### 5 7021-8, 71109-2 #### [facility] CLIA [id number] [address] [place] [address] [place] HbA1c (Bld) [Mass fraction] 5.6 % Normal 4.3-5.6 [facility] Comment on above: Order Comment: Evelyn polo Type: BLOOD SPECIMEN Ordering Facility: [facility] Address: [address] [place] [address] Result Comment: [place] Diabetes Association guidelines indicate that patients with HgbA1c in the range 5.7-6.4% are at increased risk for development of diabetes, and intervention by lifestyle modification may be beneficial. HgbA1c greater or equal to 6.5% is considered diagnostic of diabetes. Performed By: #### 5 7021-8, 75430-0 #### [facility] CLIA [id number] [address] [place] [address] [place] Iron and Iron binding capaci ty panelon 04-06-2024 Iron [Mass/Vol] 70 ug/dL Normal 41-186 [facility] Comment on above: Order Comment: Speci men Type: BLOOD SPECIMEN Ordering Facility: [facility] Address: [address] [place] [address] Performed By: #### 2 4323-8, 3024-7, 3016-3 #### [facility] CLIA [id number] [address] [place] [address] [place] Iron binding capacity [Mass/Vol] 302 ug/dL Normal 232-386 [facility] Comment on above: Order Comment: Speci men Type: BLOOD SPECIMEN Ordering Facility: [facility] Address: [address] [place] [address] Performed By: #### 2 4323-8, 3024-7, 3016-3 #### [facility] CLIA [id number] [address] [place] [address] [place] Iron/TIBC [Molar ratio] 23.2 % Normal 15.0-57.0 [facility] Comment on above: Order Comment: Speci men Type: BLOOD SPECIMEN Ordering Facility: [facility] Address: [address] [place] [address] Performed By: #### 2 4323-8, 3024-7, 3016-3 #### [facility] CLIA [id number] [address] [place] [address] [place] Magnesium SerPl-mCncon 04-06 Magnesium [Mass/Vol] 2.3 mg/dL Normal 1.7-2.3 [facility] Comment on above: Order Comment: Speci men Type: BLOOD SPECIMEN Ordering Facility: [facility] Address: [address] [place] [address] Performed By: #### 2 4323-8, 3024-7, 3016-3 #### [facility] CLIA [id number] [address] [place], [place] [address] [address] [place] PSA/PROSTATE SPECIFIC ANTIGE N SCREENINGon 04-06-2024 Prostate specific Ag [Mass/Vol] 3.34 ng/mL High <2.60 [facility] Comment on above: Order Comment: Speci men Type: BLOOD SPECIMEN Ordering Facility: [facility] Address: [address] [place] [address] Result Comment: Tota l PSA test methodology used is the Electrochemiluminescence Immunoassay by [employer]. Total PSA values by differing methodologies cannot be interchanged. For an individual patient, the significance of a PSA level should be interpreted in a broad clinical context, including age, race, family history, digital rectal exam, prostate size, results of prior testing (prostate biopsy, free PSA, PCA3), and use of 5-alpha reductase inhibitors. Considering the high incidence of asymptomatic cancer in the general population that may not pose an ultimate risk to a patient, the decision to recommend urological evaluation or prostate biopsy should be individualized after consideration of all these factors. REFERENCE: Alma Delia Ayala M.D., M.P.H., Fabiano Szymanski M.D., Ph.D., Salvador Simms M.D., Lucia Prince, M.P.H., Anika Jameson Sc.D. Effect of Verification Bias on Screening for Prostate Cancer by Measurement of Prostatic Specific Antigen. N Engl J Med 2003,349:335-42. Performed By: #### 2 4323-8, 3024-7, 3016-3 #### [facility] CLIA [id number] [address] [place], [place] [address] [address] [place] Prealb SerPl-mCncon 04-06-20 24 Prealbumin [Mass/Vol] 22 mg/dL Normal 17-36 [facility] Comment on above: Order Comment: Speci men Type: BLOOD SPECIMEN Ordering Facility: [facility] Address: [address] [place] [address] Performed By: #### 5 7021-8, 93370-7 #### [facility] CLIA [id number] [address] [place] [address] [place] TSH SerPl-aCncon 04-06-2024 TSH Qn 2.760 m[IU]/L Normal 0.270-4.200 [facility] Comment on above: Order Comment: Speci men Type: BLOOD SPECIMEN Ordering Facility: [facility] Address: [address] [place] [address] Performed By: #### 2 4323-8, 3024-7, 3016-3 #### [facility] CLIA [id number] [address] [place] [address] OF [facility] Trisha 03-12-2024 CNPN Telephone (NREUS2) NAVA HEALY ([id number]) 1945 M Date Time Provider Department 03/12/24 RACHEL ORTEGA [id number] During your visit today, we recorded the following information about you: Rachel Ortega, Research Coordinator 03/23/2024 4:17 PM Addendum Patient called and left voice mail interested in research. Returned call and left voice mail. Patient left voice mail 03/20. Called patient back and left voice mail 03/23. Allergies As of Date: 03/12/2024 Noted Allergy Reaction BANANA 10/13/2018 8 - GI Upset Comments: bloating Date Reviewed: 12/30/2023 Reviewed by: Shakila Jeff LPN - Fully Assessed Prescriptions as of 03/23/2024 - gabapentin (NEURONTIN) 100 mg capsule Titrate as discussed to three times a day - levothyroxine (SYNTHROID) 50 mcg tablet take 1 tablet by mouth every morning ON AN EMPTY STOMACH FOR THYROID - Triamcinolone Acetonide 0.05 % oint Apply to affected area. - melatonin 1 mg chew Take by mouth. - Hotjbhp-Akowovrqcuwqm-Knjyb ine (EXCEDRIN) 250-250-65 mg per tablet Take 1 tablet by mouth every 6 hours as needed. - vitamin B complex (B COMPLEX ORAL) Take by mouth. Problem List As Of Date 03/12/2024 Noted Resolved Acquired hypothyroidism [E03.9] 05/06/2016 DDD (degenerative disc disease), lumbar [M51.36]10/13/2018 Lumbar foraminal stenosis [M48.061] 05/11/2021 Parkinson's syndrome (HCC) [G20.A1] 10/30/2022 Encounter Status:Closed by RACHEL ORTEGA on 03/12/24 Normal [facility] Spine Lumbar (Routine)on Spine Lumbar (Routine) [facility] Imaging Services [address] [place] [address] Spine Lumbar (Routine) MR#: [id number] Acct: [id number] Name: NAVA HEALY Hina Rep #: [id number] : 1945 M 78 From: Sushant villa DO PCP: HARI Nunez Status: REG CLI Study: Spine Lumbar (Routine) Date of Exam: 11/18/23 Exam# [id number] Ordering Dr: Eddi Larson DO [id number] EXAM: MR LUMBAR SPINE WITHOUT INTRAVENOUS CONTRAST CLINICAL INDICATION: LOW BACK PAIN TECHNIQUE: Multiplanar and multisequence MR images of the lumbar spine without intravenous contrast. COMPARISON: No relevant prior studies available. FINDINGS: VERTEBRAE: Partially visualized degenerative changes in the cervical spine with straightening of the cervical lordosis, multilevel facet arthrosis, uncovertebral joint, and endplate osteophytosis, multilevel disc bulges with at least mild multilevel spinal canal and neural foraminal stenosis. Scoliotic curvature of the spine is identified. No spondylolysis or spondylolisthesis. No acute fracture. Multilevel endplate degenerative signal changes. SPINAL CORD: No significant abnormality. Normal position and signal intensity of the conus medullaris. SOFT TISSUES: No significant abnormality. KIDNEYS AND URETERS: Bilateral renal cysts are present for which no follow-up is indicated. STOMACH AND BOWEL: Diverticulosis. No overwhelming evidence of diverticulitis. REPRODUCTIVE: Prostatomegaly with prostate heterogeneity. DISCS/SPINAL CANAL/NEURAL FORAMINA: T12-L1: No significant abnormality. No significant spinal canal or neural foraminal stenosis. L1-L2: Disc height loss and disc desiccation. Disc bulge with superimposed central disc herniation and moderate facet arthrosis. Mild spinal canal stenosis and moderate right greater than left neural foraminal narrowing. L2-L3: Disc height loss and disc desiccation. Endplate osteophytosis and facet arthrosis. Disc bulge. Mild to moderate spinal canal stenosis, moderate right greater than left neural foraminal narrowing, and at least abutment of the right L3 nerve root. L3-L4: Disc height loss and disc desiccation. Endplate osteophytosis and facet arthrosis. Central disc herniation superimposed upon a disc bulge resulting in moderate spinal canal stenosis. Facet arthrosis contributes to moderate bilateral neural foraminal narrowing with right L3 nerve root impingement. Disc bulge with superimposed central disc herniation and moderate bilateral facet arthrosis. Moderate spinal canal stenosis. Mild to moderate bilateral neural foraminal narrowing. L4-L5: Disc bulge with superimposed left subarticular to foraminal disc herniation and severe bilateral facet arthrosis. Mild to moderate spinal canal stenosis. Moderate to severe left and moderate right neural foraminal narrowing. Left L4 and L5 nerve root impingement. L5-S1: Disc height loss and disc desiccation. Disc bulge. Moderate bilateral facet arthrosis. Mild spinal canal stenosis and severe bilateral neural foraminal narrowing. Bilateral L5 nerve root impingement. MRI/Spine Lumbar (Routine) IMPRESSION: 1. Scoliotic curvature and multilevel degenerative changes resulting in multilevel spinal canal and neural foraminal stenosis. Right L3, left L4, and bilateral L5 nerve root impingement impingement. Recommend spine surgery consultation. 2. Partially visualized degenerative changes in the cervical spine with straightening of the cervical lordosis, multilevel facet arthrosis, uncovertebral joint, and endplate osteophytosis, multilevel disc bulges with at least mild multilevel spinal canal and neural foraminal stenosis. If there is any for more detailed evaluation, dedicated imaging of the cervical spine is recommended. 3. Scoliotic curvature of the spine is identified. This should be correlated with examination and potentially weightbearing radiographs. 4. Prostatomegaly with prostate heterogeneity. Follow-up as clinically indicated. 5. Diverticulosis. No overwhelming evidence of diverticulitis. Electronically Signed: Sushant Masters DO at 0:17 EST , CC: Dr. Eddi Larson DO; HARI Nunez Advertising Copy Writer: Signed Normal [facility] Lumbar Spine 2 or 3 Viewson 11-07-2023 Lumbar Spine 2 or 3 Views [facility] [address] [place] [address] Lumbar Spine 2 or 3 Views MR#: [id number] Acct: [id number] Name: MONETNAVA Hina Rep #: [id number] : 1945 M 78 From: Quirino Titus MD PCP: HARI Nunez Status: DEP AMB Study: Lumbar Spine 2 or 3 Views Date of Exam: Exam# [id number] Ordering Dr: Eddi Larson DO [id number] STUDY: X-RAY - LUMBAR SPINE REASON FOR EXAM: Male, 78 years old. Pain. TECHNIQUE: 2 view(s) of the lumbar spine were obtained. COMPARISON: None FINDINGS: Osteopenia. Reversal of the normal lordosis. Marked rotatory levoscoliosis. Normal alignment of the vertebral bodies. Diffuse lower thoracic and lumbosacral facet sclerosis. Diffuse moderate to marked intervertebral disc space narrowing with osteophytes. Vascular calcifications. RAD/Lumbar Spine 2 or 3 Views IMPRESSION: Osteopenia with marked rotatory levoscoliosis and diffuse moderate to marked lumbosacral spondylosis. Electronically Signed: Quirino Titus MD at 14:49 EST Reading Location ID and State: [address] [place] [address] , Service support , CC: Dr. Eddi Larson DO; HARI Nunez Advertising Copy Writer: Signed Normal [facility] Orthopedic Visit Reporton Orthopedic Visit Report [facility] [address] [place] [address] [address] [place] [address] OFFICE VISIT Date of Service: 11/07/23 MR#: [id number] Acct: [id number] Name: NAVA HEALY Rep #: [id number] : 1945 Provider: Dr. Eddi godoy DO Age/Sex: 78/M [place] [facility] [place]: Signed Intake Vital Signs 08/02/22 14:41 11/07/23 14:17 Height 6 ft 5 ft 11 in Weight: 125 lb BMI 17.4 Intake Visit Reasons: LUMBAR SPINE Is patient in pain?: Yes Allergies No Known Allergies Allergy (Unverified 11/07/23 14:18) Medications levothyroxine 13 mcg capsule 13 mcg PO DAILY 08/02/22 [History Confirmed 11/07/23] guittfc-fowimmbkxrhmg-oaajm ine 250 mg-250 mg-65 mg tablet (Excedrin Extra Strength) 1 tab PO ONCE 09/06/22 [History Confirmed 11/07/23] [facility] Medical History (Updated 11/07/23 @ 14:[address] Eddi Larson DO) Osteoarthritis of carpometacarpal joint of left thumb Family History Other Arthritis Cancer Social History Smoking Status: Former smoker alcohol intake: never substance use type: does not use what type of physical activity do you participate in: none HPI LUMBAR SPINE Details: This documentation accurately reflects the service provided and the decisions made by me, Dr. Eddi Larson DO 11/07/23 1457. Part of today???s visit was documented by [ ], acting as scribe. NAVA HEALY is a 78 year old M here today for low back pain. Patient notes that he has Parkinsons. Patient notes that he has had low back pain pain for many years. He denies any injury. Patient denie s any lumbar spine surgeries. He complains of pain over his entire lumbar spine. He has increased pain into his hips and thighs with increased activities. Patient denies any numbness or tingling. He states that his skin is very sensitive to light touch. Patient has increased pain with all activities. He has a cat care home which increases his pain preparing the food and clean up. Patient has seen pain management for 12 injections which was not helpful. He has tried physical therapy and massage. He has relief with laying on the bed. Patient takes excedrin for pain. He had an MRI a few years ago. Mr. Healy is a pleasant gentleman 78 years old that carries a presumptive diagnosis of Parkinson's disease. The thing it Inc. bothers him the most apparently is this hypersensitivity of the skin on his anterior thighs. The pain management injections have not helped him at all. He does have low back pain. Not as much thoracic pain however. On examination he has generalized atrophy of his quadriceps mechanisms on both sides. He does have 2+ patellar reflexes bilaterally and 1+ Achilles reflexes bilaterally. He has no long tract signs. Clonus is absent Babinski's are downgoing. He has some stiffness in his hip joints and I can only externally rotate him so far but then it really gave him a lot of pain is 1 would and hip disease. Plain x-rays that demonstrate that he has a severe lumbar scoliosis perhaps as much is 60 degrees. It is no doubt degenerative in nature and perhaps also osteoporotic in nature. He also has a beginning of significant kyphos at the top of the lumbar curve. This is also typical of folks with Parkinson's disease. Nonetheless we are ordering an MRI scan of the lumbar spine. I will see him after the MRI scan and make further recommendations. Coding Level of Care Code Off vis,new,level 3 Diagnoses Other osteoporosis, unspecified pathological fracture presence M81.8 Osteoporosis type: other Presence of current pathological fracture: unspecified Degenerative scoliosis M41.50 Parkinson's disease, unspecified whether dyskinesia present, unspecified whether manifestations fluctuate G20.A1 Dyskinesia presence: unspecified whether dyskinesia Fluctuating manifestations: unspecified whether manifestations fluctuate Time Spent (min) 30 Assessment and Plan Assessment and Plan (1) Osteoporosis: Status: Acute Qualifiers: Osteoporosis type: other Presence of current pathological fracture: unspecified Qualified Code(s): M81.8 - Other osteoporosis without current pathological fracture (2) Degenerative scoliosis: Status: Acute (3) Parkinsons disease: Status: Acute Qualifiers: Dyskinesia presence: unspecified whether dyskinesia Fluctuating manifestations: unspecified whether manifestations fluctuate Qualified Code(s): G20.A1 - Parkinson's disease without dyskinesia, without mention of fluctuations Orders: Orders Lumbar Spine 2 or 3 Views Today M54.50 - Low back pain, unspecified Spine Lumbar (Routine) Today G20.A1 - Parkinson's disease without dyskinesia, without mention of fluctuations, M41.50 - Other secondary scoliosis, site unspecified, (more content not included)... Normal [facility] MRI BRAIN IVCONon 023 [facility] CNOVon 05-03-2022 CNOV Office Visit (SPAGWO ) NAVA HEALY ([id number]) 1945 M Date Time Provider Department 05/03/22 10:00 AM SHELL LEWIS During your visit today, we recorded the following information about you: Pulse Respiration Normal [facility] Trisha 05-03-2022 CNPN Telephone (SPAGWO) NAVA HEALY ([id number]) 1945 M Date Time Provider Department 05/03/22 SHELL LEWIS During your visit today, we recorded the following information about you: Serena Moreno 05/03/2022 10:58 AM Signed 1.Are you diabetic No 2. Are you on any blood thinners? No 3. Are you taking any aspirin? No 4. Have you had any recent imaging done on your body part that's being injected? Yes MRI and Xray 5. Do you have any allergies to latex? No 6. Do you have any allergies to seafood? No 7. Do you have any allergies to shellfish? No 8. Do you have any allergies to x-ray dye? No 9. Are you taking Xanax for the procedure? No 10. Have you done physical therapy in the last year? Yes If yes, When and Where? Home physical therapy (Medical Records Release needs to be signed.) 11. Were the pre-procedure instructions explained to the patient? Yes 12. Do you have a pacemaker? No 13. Do you have an internal stimulator of any kind? No If yes, please bring the remote with you to your procedure visit. 14. Have you received the COVID-19 Vaccine? Yes. If yes, date(s) received: explained to patient (Patient should not receive a procedure including steroids 14 days prior to their first dose of the COVID vaccine. They should not receive any procedure containing steroids in the time frame between their 1st and 2nd doses of the COVID vaccine. They should not receive a procedure containing steroids 14 days after their 2nd dose of the COVID vaccine.) Serena Moreno Allergies As of Date: 05/03/2022 Noted Allergy Reaction BANANA 10/13/2018 8 - GI Upset Comments: bloating Date Reviewed: 05/03/2022 Reviewed by: Tammy Reyes MA - Fully Assessed Reason for Visit: Patient Update [1234] Prescriptions as of 05/03/2022 - Triamcinolone Acetonide 0.05 % oint Apply to affected area. - melatonin 1 mg chew Take by mouth. - Xcpojxc-Ewtgvbjjimgli-Aokgy ine (EXCEDRIN) 250-250-65 mg per tablet Take 1 tablet by mouth every 6 hours as needed. - levothyroxine (SYNTHROID) 50 mcg tablet take 1 tablet by mouth every morning ON AN EMPTY STOMACH FOR THYROID - gabapentin (NEURONTIN) 100 mg capsule Take 1 capsule by mouth three times daily for 90 days. - vitamin B complex (B COMPLEX ORAL) Take by mouth. Problem List As Of Date 05/03/2022 Noted Resolved Acquired hypothyroidism [E03.9] 05/06/2016 DDD (degenerative disc disease), lumbar [M51.36]10/13/2018 Lumbar foraminal stenosis [M48.061] 05/11/2021 Encounter Status:Closed by SERENA MORENO on 05/03/22 Normal [facility] XR Pelvis and Hip - right AP and Lateral frogon 12-13-2021 IMPRESSION: 1. Mild degenerative changes in the hips. 2. Atherosclerotic disease. Advertising Copy Writer: PSCB Transcribe Date/Time: Dec 13 2021 3:33P Dictated by : ALECIA CLARK MD This examination was interpreted and the report reviewed and electronically signed by: ALECIA CLARK MD on Dec 13 2021 3:34PM [facility] DIVISION OF RADIOLOGY * * *Final Report* * * DATE OF EXAM: Dec 13 2021 2:47PM WOX 5352 - XR HIP 3V PELV+ AP/LAT RT / PROCEDURE REASON: Pain in rt hip joint * * * * Physician Interpretation * * * * CLINICAL INDICATION: Hip pain TECHNIQUE: AP radiograph of the pelvis and AP/frog-leg lateral radiographs of the right hip COMPARISON: Radiograph dated August 25, 2019 FINDINGS: No acute fracture or dislocation identified. Mild bilateral hip joint space narrowing. Degenerative changes in the visualized lower lumbar spine. Atherosclerotic calcification of the vasculature. DIVISION OF RADIOLOGY Provider, [facility] - 12/13/2021 * * *Final Report* * * DATE OF EXAM: Dec 13 2021 2:47PM WOX 5352 - XR HIP 3V PELV+ AP/LAT RT / PROCEDURE REASON: Pain in rt hip joint * * * * Physician Interpretation * * * * CLINICAL INDICATION: Hip pain TECHNIQUE: AP radiograph of the pelvis and AP/frog-leg lateral radiographs of the right hip COMPARISON: Radiograph dated August 25, 2019 FINDINGS: No acute fracture or dislocation identified. Mild bilateral hip joint space narrowing. Degenerative changes in the visualized lower lumbar spine. Atherosclerotic calcification of the vasculature. IMPRESSION IMPRESSION: 1. Mild degenerative changes in the hips. 2. Atherosclerotic disease. Advertising Copy Writer: PSCB Transcribe Date/Time: Dec 13 2021 3:33P Dictated by : ALECIA CLARK MD This examination was interpreted and the report reviewed and electronically signed by: ALECIA CLARK MD on Dec 13 2021 3:34PM EST [facility] Radiology Study observation (narrative) [facility] XR Pelvis and Hip - right AP and Lateral frogOrdered By: [facility] Provider on 12-13-2021 [facility] CNCOon 03-29-2021 CNCO Letter Text Normal [facility] XR Lumbar spine 3 Viewson IMPRESSION: Degenera tive scoliosis. Advertising Copy Writer: PSCB Transcribe Date/Time: Mar 20 2021 9:34P Dictated by : RICHY AKINS MD This examination was interpreted and the report reviewed and electronically signed by: RICHY AKINS MD on Mar 20 2021 9:35PM EST DIVISION OF RADIOLOGY * * *Final Report* * * DATE OF EXAM: Mar 20 2021 6:06PM WOX 5228 - XR LUMBAR 3V AP/LAT/L5-S1 / PROCEDURE REASON: Acute midline low back pain with right-sided sciatica * * * * Physician Interpretation * * * * PROCEDURE: Lumbar spine INDICATION: Acute midline low back pain with right-sided sciatica .pt states pain for years in back but worse in the last couple. Pain is in the right si joint area no inj TECHNIQUE: XR LUMBAR 3V AP/LAT/L5-S1 COMPARISON: None FINDINGS: Significant levorotoscoliosis, centered at L2-3. Diffuse degenerative disc disease with displaced narrowing, endplate sclerosis and marginal spur formation. No pars defects. Facet arthrosis L3-S1. Sacroiliac joints are unremarkable. DIVISION OF RADIOLOGY Provider, [facility] - 03/20/2021 * * *Final Report* * * DATE OF EXAM: Mar 20 2021 6:06PM WOX 5228 - XR LUMBAR 3V AP/LAT/L5-S1 / PROCEDURE REASON: Acute midline low back pain with right-sided sciatica * * * * Physician Interpretation * * * * PROCEDURE: Lumbar spine INDICATION: Acute midline low back pain with right-sided sciatica .pt states pain for years in back but worse in the last couple. Pain is in the right si joint area no inj TECHNIQUE: XR LUMBAR 3V AP/LAT/L5-S1 COMPARISON: None FINDINGS: Significant levorotoscoliosis, centered at L2-3. Diffuse degenerative disc disease with displaced narrowing, endplate sclerosis and marginal spur formation. No pars defects. Facet arthrosis L3-S1. Sacroiliac joints are unremarkable. IMPRESSION IMPRESSION: Degenerative scoliosis. Advertising Copy Writer: PSCB Transcribe Date/Time: Mar 20 2021 9:34P Dictated by : RICHY AKINS MD This examination was interpreted and the report reviewed and electronically signed by: RICHY AKINS MD on Mar 20 2021 9:35PM EST [facility] Radiology Study observation (narrative) [facility] XR Lumbar spine 3 ViewsOrder ed By: [facility] Provider on 03-20-2021 [facility] Vital Signs Date Time Vital Sign Value Performing Clinician Facility 02-19-2025 14:17-0400 Body mass index (BMI) [Ratio] 16.27 kg/m2 Viola Phelps APRN.[employer] Work Phone: [facility] 02-19-2025 14:17-0400 Body weight 54.43 kg Viola Phelps APRN.[employer] Work Phone: [facility] 02-19-2025 14:17-0400 Diastolic blood pressure 70 mm[Hg] Viola Phelps APRN.[employer] Work Phone: [facility] 02-19-2025 14:17-0400 Heart rate 80 /min Viola Phelps APRN.[employer] Work Phone: [facility] 02-19-2025 14:17-0400 Respiratory rate 16 /min Viola Phelps APRN.[employer] Work Phone: [facility] 02-19-2025 14:17-0400 SaO2% (BldA) [Mass fraction] 98 % Viola Phelps APRN.[employer] Work Phone: [facility] 02-19-2025 14:17-0400 Systolic blood pressure 107 mm[Hg] Viola Phelps APRN.[employer] Work Phone: [facility] 01-20-2025 14:56-0400 Body mass index (BMI) [Ratio] 16.27 kg/m2 Viola Haagen [employer] Work Phone: [facility] 01-20-2025 14:56-0400 Body weight 54.43 kg Viola Haagen [employer] Work Phone: [facility] 01-20-2025 14:56-0400 Diastolic blood pressure 78 mm[Hg] Viola Haagen [employer] Work Phone: [facility] 01-20-2025 14:56-0400 Heart rate 74 /min Viola Haagen [employer] Work Phone: [facility] 01-20-2025 14:56-0400 Respiratory rate 16 /min Viola Haagen [employer] Work Phone: [facility] 01-20-2025 14:56-0400 SaO2% (BldA) [Mass fraction] 96 % Viola Haagen [employer] Work Phone: [facility] 01-20-2025 14:56-0400 Systolic blood pressure 128 mm[Hg] Viola Haagen [employer] Work Phone: [facility] 12-02-2024 13:46-0400 Body mass index (BMI) [Ratio] 16.41 kg/m2 Viola Haagen [employer] Work Phone: [facility] 12-02-2024 13:46-0400 Body weight 54.88 kg Viola Haagen [employer] Work Phone: [facility] 12-02-2024 13:46-0400 Diastolic blood pressure 76 mm[Hg] Viola Haagen [employer] Work Phone: [facility] 12-02-2024 13:46-0400 Heart rate 67 /min Viola Haagen [employer] Work Phone: [facility] 12-02-2024 13:46-0400 Respiratory rate 16 /min Viola Haagen [employer] Work Phone: [facility] 12-02-2024 13:46-0400 SaO2% (BldA) [Mass fraction] 98 % Viola Haagen [employer] Work Phone: [facility] 12-02-2024 13:46-0400 Systolic blood pressure 145 mm[Hg] Viola Haagen [employer] Work Phone: [facility] 10-28-2024 14:53-0500 Heart rate 76 /min Viola Haagen [employer] Work Phone: [facility] 10-28-2024 14:09-0500 Diastolic blood pressure 72 mm[Hg] Viola Haagen [employer] Work Phone: [facility] 10-28-2024 14:09-0500 Respiratory rate 16 /min Viola Haagen [employer] Work Phone: [facility] 10-28-2024 14:09-0500 SaO2% (BldA) [Mass fraction] 97 % Viola Haagen [employer]ER [employer] Work Phone: [facility] 10-28-2024 14:09-0500 Systolic blood pressure 118 mm[Hg] Viola Haagen LABORER [employer] E[employer] Work Phone: [facility] 10-27-2024 16:03-0500 Body mass index (BMI) [Ratio] 16.6 kg/m2 Kirstin Vailer PA-C Work Phone: [facility] 10-27-2024 16:03-0500 Body weight 55.52 kg Kirstin Vailer PA-C Work Phone: [facility] 10-27-2024 16:03-0500 Diastolic blood pressure 91 mm[Hg] Kirstin Vailer PA-C Work Phone: [facility] 10-27-2024 16:03-0500 Heart rate 74 /min Kirstin Vailer PA-C Work Phone: [facility] 10-27-2024 16:03-0500 SaO2% (BldA) [Mass fraction] 98 % Kirstin Vailer PA-C Work Phone: [facility] 10-27-2024 16:03-0500 Systolic blood pressure 134 mm[Hg] Kirstin Aldridge PA-C Work Phone: [facility] 07-28-2024 13:04-0500 Diastolic blood pressure 76 mm[Hg] Viola Haagen LABORER [employer] E[employer]MER Work Phone: [facility] 07-28-2024 13:04-0500 Heart rate 84 /min Viola Haagen LAB[employer]ER [employer] E[employer] Work Phone: [facility] 07-28-2024 13:04-0500 Respiratory rate 16 /min Viola Haagen LABORER [employer] E[employer]MER Work Phone: [facility] 07-28-2024 13:04-0500 SaO2% (BldA) [Mass fraction] 97 % Viola Haagen LABORER [employer] E[employer]MER Work Phone: [facility] 07-28-2024 13:04-0500 Systolic blood pressure 128 mm[Hg] Viola Haagen LABORER [employer] E[employer]MER Work Phone: [facility] 04-06-2024 15:10-0400 Diastolic blood pressure 88 mm[Hg] Viola Haagen LABORER [employer] E[employer]MER Work Phone: [facility] 04-06-2024 15:10-0400 Heart rate 82 /min Viola Haagen LABORER [employer] E[employer] Work Phone: [facility] 04-06-2024 15:10-0400 Respiratory rate 16 /min Viola Haagen LABORER [employer] EMBALMER Work Phone: [facility] 04-06-2024 15:10-0400 SaO2% (BldA) [Mass fraction] 99 % Viola Haagen LABORER [employer] E[employer]MER Work Phone: [facility] 04-06-2024 15:10-0400 Systolic blood pressure 130 mm[Hg] Viola Haagen LABORER [employer] E[employer]MER Work Phone: [facility] 12-30-2023 15:24-0400 Body weight 58.97 kg CAYLA Abraham PA-C Work Phone: [facility] 12-30-2023 15:24-0400 Diastolic blood pressure 90 mm[Hg] NA Abraham PA-C Work Phone: [facility] 12-30-2023 15:24-0400 Heart rate 56 /min NA Abraham PA-C Work Phone: [facility] 12-30-2023 15:24-0400 Respiratory rate 16 /min NA Abraham PA-C Work Phone: [facility] 12-30-2023 15:24-0400 SaO2% (BldA) [Mass fraction] 96 % NA Abraham PA-C Work Phone: [facility] 12-30-2023 15:24-0400 Systolic blood pressure 138 mm[Hg] NA Abraham PA-C Work Phone: [facility] 12-02-2023 14:49-0400 Body weight 59.42 kg NA Abraham PA-C Work Phone: [facility] 12-02-2023 14:49-0400 Diastolic blood pressure 80 mm[Hg] NA Abraham PA-C Work Phone: [facility] 12-02-2023 14:49-0400 Heart rate 60 /min NA Abraham PA-C Work Phone: [facility] 12-02-2023 14:49-0400 Respiratory rate 16 /min NA Abraham PA-C Work Phone: [facility] 12-02-2023 14:49-0400 Systolic blood pressure 132 mm[Hg] NA Abraham PA-C Work Phone: [facility] 11-07-2023 14:17-0500 Body height 180.34 cm PA NA Abraham PA Work Phone: [facility] 11-07-2023 14:17-0500 Body mass index (BMI) [Ratio] 17.4 kg/m2 PA NA Abraham PA Work Phone: [facility] 11-07-2023 14:17-0500 Body weight 56.69 kg PA NA Abraham PA Work Phone: [facility] 07-29-2023 16:52-0500 Body weight 57.88 kg Salvador Vargas Jr., MD Work Phone: [facility] 07-29-2023 16:52-0500 Diastolic blood pressure 95 mm[Hg] Salvador Vargas Jr., MD Work Phone: [facility] 07-29-2023 16:52-0500 Heart rate 86 /min Salvaodr Vargas Jr., MD Work Phone: [facility] 07-29-2023 16:52-0500 Respiratory rate 18 /min Salvador Vargas Jr., MD Work Phone: [facility] 07-29-2023 16:52-0500 SaO2% (BldA) [Mass fraction] 98 % Salvador Vargas Jr., MD Work Phone: [facility] 07-29-2023 16:52-0500 Systolic blood pressure 138 mm[Hg] Salvador Vargas Jr., MD Work Phone: [facility] 05-21-2023 14:51-0400 Body weight 56.97 kg NA Abraham PA-C Work Phone: [facility] 05-21-2023 14:51-0400 Diastolic blood pressure 82 mm[Hg] NA Abraham PA-C Work Phone: [facility] 05-21-2023 14:51-0400 Heart rate 82 /min NA Abraham PA-C Work Phone: [facility] 05-21-2023 14:51-0400 Respiratory rate 16 /min NA Abraham PA-C Work Phone: [facility] 05-21-2023 14:51-0400 SaO2% (BldA) [Mass fraction] 100 % NA Abraham PA-C Work Phone: [facility] 05-21-2023 14:51-0400 Systolic blood pressure 138 mm[Hg] NA Abraham PA-C Work Phone: [facility] 02-21-2023 13:37-0400 Body temperature 97.59 [degF] Patsy Dahlhausen LABORER [employer] Work Phone: [facility] 02-21-2023 13:37-0400 Body weight 57.52 kg Patsy Dahlhausen LABORER [employer] E[employer]MER Work Phone: [facility] 02-21-2023 13:37-0400 Diastolic blood pressure 85 mm[Hg] Patsy Dahlhausen LABORER [employer] E[employer]MER Work Phone: [facility] 02-21-2023 13:37-0400 Heart rate 81 /min Patsy Dahlhausen LABORER [employer] E[employer]MER Work Phone: [facility] 02-21-2023 13:37-0400 Respiratory rate 18 /min Patsy Dahlhausen LABORER [employer].TR[employer] E[employer]ALMER Work Phone: [facility] 02-21-2023 13:37-0400 SaO2% (BldA) [Mass fraction] 97 % Patsy Dahlhausen LABORER [employer].TR[employer] E[employer]ALMER Work Phone: [facility] 02-21-2023 13:37-0400 Systolic blood pressure 122 mm[Hg] Patsy Dahlhausen LABORER [employer].TR[employer] E[employer]ALMER Work Phone: [facility] 12-27-2022 13:37-0400 Body temperature 98.1 [degF] Patsy Dahlhausen LABORER [employer] E[employer]MER Work Phone: [facility] 12-27-2022 13:37-0400 Body weight 58.97 kg Patsy Dahlhausen LABORER [employer] E[employer]MER Work Phone: [facility] 12-27-2022 13:37-0400 Diastolic blood pressure 91 mm[Hg] Patsy Dahlhausen LABORER [employer] E[employer]MER Work Phone: [facility] 12-27-2022 13:37-0400 Heart rate 58 /min Patsy Dahlhausen LABORER [employer] E[employer]MER Work Phone: [facility] 12-27-2022 13:37-0400 Respiratory rate 18 /min Patsy Brianhausen LABORER [employer].TR[employer] E[employer]MER Work Phone: [facility] 12-27-2022 13:37-0400 SaO2% (BldA) [Mass fraction] 99 % Patsy Brianhausen LABORER [employer] E[employer]MER Work Phone: [facility] 12-27-2022 13:37-0400 Systolic blood pressure 151 mm[Hg] Patsy Daindrahausen LABORER [employer] E[employer]MER Work Phone: [facility] 10-30-2022 15:45-0500 Body weight 60.78 kg NA Abraham PA-C Work Phone: [facility] 10-30-2022 15:45-0500 Diastolic blood pressure 80 mm[Hg] NA Abraham PA-C Work Phone: [facility] 10-30-2022 15:45-0500 Heart rate 59 /min NA Abraham PA-C Work Phone: [facility] 10-30-2022 15:45-0500 SaO2% (BldA) [Mass fraction] 99 % NA Abraham PA-C Work Phone: [facility] 10-30-2022 15:45-0500 Systolic blood pressure 128 mm[Hg] NA Abraham PA-C Work Phone: [facility] 08-02-2022 14:41-0500 Body height 182.88 cm PA NA Abraham PA Work Phone: [facility] Work Phone: 08-02-2022 14:41-0500 Body mass index (BMI) [Ratio] 18.3 kg/m2 PA NA Abraham PA Work Phone: [facility] Work Phone: 08-02-2022 14:41-0500 Body weight 61.23 kg PA NA Abraham PA Work Phone: [facility] Work Phone: 07-05-2022 15:42-0400 Heart rate 62 /min Shell Lewis MD Work Phone: [facility] 07-05-2022 15:42-0400 Respiratory rate 16 /min Shell Lewis MD Work Phone: [facility] 07-05-2022 15:42-0400 SaO2% (BldA) [Mass fraction] 99 % Shell Lewis MD Work Phone: [facility] 06-14-2022 13:23-0400 Body weight 59.88 kg NA Abraham PA-C Work Phone: [facility] 06-14-2022 13:23-0400 Diastolic blood pressure 64 mm[Hg] NA Abraham PA-C Work Phone: [facility] 06-14-2022 13:23-0400 Heart rate 67 /min NA Abraham PA-C Work Phone: [facility] 06-14-2022 13:23-0400 Respiratory rate 14 /min NA Abraham PA-C Work Phone: [facility] 06-14-2022 13:23-0400 SaO2% (BldA) [Mass fraction] 99 % NA Abraham PA-C Work Phone: [facility] 06-14-2022 13:23-0400 Systolic blood pressure 110 mm[Hg] NA Abraahm PA-C Work Phone: [facility] 05-03-2022 10:11-0400 Heart rate 67 /min Shell Lewis MD Work Phone: [facility] 05-03-2022 10:11-0400 Respiratory rate 16 /min Shell Lewis MD Work Phone: [facility] 05-03-2022 10:11-0400 SaO2% (BldA) [Mass fraction] 99 % Shell Lewis MD Work Phone: [facility] 03-08-2022 16:16-0400 Body weight 58.51 kg NA Abraham PA-C Work Phone: [facility] 03-08-2022 16:16-0400 Diastolic blood pressure 74 mm[Hg] NA Abraham PA-C Work Phone: [facility] 03-08-2022 16:16-0400 Heart rate 66 /min NA Abraham PA-C Work Phone: [facility] 03-08-2022 16:16-0400 Respiratory rate 16 /min NA Abraham PA-C Work Phone: [facility] 03-08-2022 16:16-0400 SaO2% (BldA) [Mass fraction] 99 % NA Abraham PA-C Work Phone: [facility] 03-08-2022 16:16-0400 Systolic blood pressure 120 mm[Hg] NA Abraham PA-C Work Phone: [facility] 02-05-2022 15:24-0400 Body weight 58.51 kg NA Abraham PA-C Work Phone: [facility] 02-05-2022 15:24-0400 Diastolic blood pressure 76 mm[Hg] NA Abraham PA-C Work Phone: [facility] 02-05-2022 15:24-0400 Heart rate 78 /min NA Abraham PA-C Work Phone: [facility] 02-05-2022 15:24-0400 Respiratory rate 16 /min NA Abraham PA-C Work Phone: [facility] 02-05-2022 15:24-0400 SaO2% (BldA) [Mass fraction] 98 % NA Abraham PA-C Work Phone: [facility] 02-05-2022 15:24-0400 Systolic blood pressure 120 mm[Hg] NA Abraham PA-C Work Phone: [facility] Encounters Encounter Date Encounter Type Care Provider Facility Start: 02-19-2025 End: 02-19-2025 Office outpatient visit 25 minutes Viola Phelps APRN.CNP Work Phone: [facility] [place] Comment on above: Parkinsonian feature s (Primary Dx); Chronic pain syndrome; Lumbar foraminal stenosis; Weight loss Start: 02-19-2025 End: 02-19-2025 [facility] Facility:[facility] Start: 01-22-2025 End: 01-25-2025 Telephone encounter Cale Mix MSW Navigation Start: 01-20-2025 End: 01-20-2025 Office outpatient visit 25 minutes Viola Phelps APRN.TRADE EMBALMER Work Phone: [facility] [place] Comment on above: Chronic pain syndrom e (Primary Dx); Weight loss; Lumbar foraminal stenosis Start: 01-20-2025 End: 01-20-2025 [facility] Facility:[facility] Start: 12-07-2024 End: 02-06-2025 Follow-up encounter Viola Phelps APRN.TRADE EMBALMER Work Phone: [facility] [place] Start: 12-05-2024 End: 02-04-2025 Follow-up encounter Viola Phelps APRN.TRADE EMBALMER Work Phone: [facility] [place] Start: 12-02-2024 End: 12-02-2024 Telephone encounter Cale Mix MSW Navigation Start: 12-02-2024 End: 12-02-2024 Office outpatient visit 25 minutes Viola Phelps APRN.TRADE EMBALMER Work Phone: [facility] [place] Comment on above: Weight loss (Primary Dx); Other chronic pain; Drooling Start: 12-02-2024 End: 12-02-2024 [facility] Facility:[facility] Start: 11-30-2024 End: 12-02-2024 Telephone encounter Viola Phelps APRN.TRADE EMBALMER Work Phone: [facility] [place] Comment on above: Patient Question Start: 10-29-2024 End: 11-06-2024 Telephone encounter Cale Mix MSW Navigation Start: 10-28-2024 End: 10-28-2024 [facility] Facility:[facility] Start: 10-28-2024 End: 10-28-2024 [facility] Start: 10-28-2024 End: 10-28-2024 Office outpatient visit 25 minutes Viola Phelps APRN.TRADE EMBALMER Work Phone: [facility] [place] Comment on above: Acquired hypothyroid ism (Primary Dx); Vitamin D deficiency; Generalized weakness; Other chronic pain; Parkinson's disease with dyskinesia and fluctuating manifestations (HCC); Weight loss Start: 10-28-2024 End: 10-30-2024 Telephone encounter Viola Phelps APRN.TRADE EMBALMER Work Phone: [facility] [place] Comment on above: Patient Question Start: 10-27-2024 End: 10-27-2024 Patient encounter procedure Kirstin Aldridge PA-C Work Phone: Neurology Comment on above: Parkinson's disease without dyskinesia, unspecified whether manifestations fluctuate (HCC) (Primary Dx); Unstable gait; Generalized weakness; Myalgias; Lightheadedness; Lumbar pain; Parkinsonian features Start: 10-27-2024 End: 10-27-2024 ambulatory KIRSTIN ALDRIDGE Facility:[facility] Start: 10-14-2024 End: 10-14-2024 Refill Viola Phelps APRN.TRADE EMBALMER Work Phone: [facility] Comment on above: Refill Request Start: 08-18-2024 End: 08-21-2024 Telephone encounter Viola Phelps APRN.TRADE EMBALMER Work Phone: [facility] [place] Comment on above: Results Start: 08-13-2024 End: 08-13-2024 ambulatory [facility] Facility:[facility] Start: 07-30-2024 End: 08-03-2024 Telephone encounter Cale Mix MSW Navigation Start: 07-28-2024 End: 07-28-2024 Office outpatient visit 15 minutes Viola Phelps APRN.TRADE EMBALMER Work Phone: [facility] [place] Comment on above: Parkinson's disease with dyskinesia and fluctuating manifestations (HCC) (Primary Dx); Lumbar foraminal stenosis; Encounter for immunization Start: 07-28-2024 End: 07-28-2024 ambulatory [facility] Facility:[facility] Start: 07-15-2024 End: 07-15-2024 Naomiill Basilio Abraham PA-C Work Phone: [facility] Comment on above: Refill Request Start: 07-07-2024 End: 09-25-2024 ambulatory Silvioleroy Suly Research Coordinator [facility] Comment on above: Parkinson's Foundati on [employer]Gene Study Start: 07-07-2024 End: 09-25-2024 E-mail encounter from caregiver Cristina Tubbs Research Coordinator [facility] Start: 06-10-2024 End: 06-10-2024 Telephone encounter Basilio Maximilian Abraham PA-C Work Phone: [address] [place] [address] Comment on above: Consult Start: 05-18-2024 End: 05-18-2024 Emergency department patient visit Basilio NORIEGA Facility:[facility] Start: 05-05-2024 Telephone encounter Ellie damian Research Coordinator Work Phone: [facility] Comment on above: Research (IRB [id number] ) Start: 04-24-2024 ambulatory Ellie abdullahi Research Coordinator Work Phone: [facility] Comment on above: Research Start: 04-24-2024 E-mail encounter fro m caregiver Ellie Cortes Research Coordinator Work Phone: [facility] Start: 04-17-2024 Telephone encounter Allen redd Research Coordinator [facility] Start: 04-15-2024 Telephone encounter Yinka arcos [facility] Work Phone: [facility] Comment on above: Patient Question (Ge netics) Start: 04-07-2024 Telephone encounter Viola farrar APRN.TRADE EMBALMER Work Phone: [facility] Comment on above: Lab Orders; Results Start: 04-06-2024 End: 04-06-2024 ambulatory HAWA ABRAHAM Facility:[facility] Start: 04-06-2024 End: 04-06-2024 ambulatory VIOLA PHELPS Facility:[facility] Start: 04-06-2024 End: 04-06-2024 Office outpatient visit 25 minutes Viola Phelps APRN.TRADE EMBALMER Work Phone: [facility] Comment on above: Parkinson's disease with dyskinesia and fluctuating manifestations (HCC) (Primary Dx); Acquired hypothyroidism; Palpitations; Restless legs; Pruritus, unspecified; Family hx of aortic aneurysm; Screening for prostate cancer Start: 03-12-2024 Telephone encounter Rachel luke Research Coordinator Work Phone: [facility] Start: 01-21-2024 Telephone encounter Rachel luke Research Coordinator Work Phone: [facility] Start: 01-20-2024 Telephone encounter Kirstin zhong PA-C Work Phone: Neurology Comment on above: Patient Question Start: 01-08-2024 Telephone encounter Salvador Vargas MD Work Phone: Neurology Comment on above: Patient Question Start: 01-06-2024 Telephone encounter Basilio Abraham PA-C Work Phone: [facility] [place] Comment on above: Patient Question Start: 12-31-2023 Telephone encounter Cale Cordova Start: 12-30-2023 End: 12-30-2023 Patient encounter procedure Basilio Abraham PA-C Work Phone: [facility] [place] Comment on above: Lumbar foraminal and canal stenosis moderate-severe L4, L5 (Primary Dx); Parkinson's disease with dyskinesia and fluctuating manifestations (HCC); Acquired hypothyroidism; Underweight; Chronic pain syndrome; Age-related physical debility Start: 12-02-2023 End: 12-02-2023 Patient encounter procedure Basilio Abraham PA-C Work Phone: [facility] [place] Comment on above: Parkinsonian feature s (Primary Dx); Unstable gait; Generalized weakness; Myalgias; Fasciculations; Chronic midline low back pain without sciatica; Acquired hypothyroidism; Involution of toenail; Visual changes Start: 11-18-2023 End: 11-18-2023 ambulatory PA Basilio NORIEGA Work Phone: [facility] Work Phone: Start: 11-18-2023 End: 11-18-2023 Patient encounter procedure HARI NORIEGA Work Phone: [facility] Work Phone: Start: 11-18-2023 End: 11-18-2023 ambulatory Eddi Larson Facility:[facility] Start: 11-07-2023 End: 11-07-2023 Patient encounter procedure HARI NORIEGA Work Phone: [facility] Work Phone: Start: 11-07-2023 End: 11-07-2023 ambulatory Basilio NORIEGA [facility] Start: 07-29-2023 End: 07-29-2023 Patient encounter procedure Salvador Vargas MD Work Phone: Neurology Comment on above: Parkinsonian feature s (Primary Dx); Unstable gait; Generalized weakness; Myalgias; Fasciculation; Chronic midline low back pain without sciatica; Lightheadedness; Blurred vision Start: 07-19-2023 Telephone encounter Neurology [facility] Comment on above: Appointment; [facility] Start: 06-07-2023 Telephone encounter Basilio Abraham PA-C Work Phone: [facility] Comment on above: Patient Question Start: 05-21-2023 End: 05-21-2023 Patient encounter procedure Basilio Abraham PA-C Work Phone: [facility] Comment on above: Myalgia (Primary Dx) ; Polyarthralgia; Lumbar foraminal stenosis; DDD (degenerative disc disease), lumbar; Poor diet; Vitamin D deficiency; Underweight; Acquired hypothyroidism; Parkinson's syndrome (HCC) Start: 03-28-2023 End: 03-28-2023 Subsequent hospital visit by physician [employer] [employer] [facility] Wstr (I-Stat/1.5t) Work Phone: Radiology Comment on above: Transient cerebral i schemia, unspecified type [G45.9] Start: 03-18-2023 End: 03-18-2023 ambulatory [facility] Work Phone: Start: 03-18-2023 End: 03-18-2023 Discharged Recurring [facility]-Physical Therapy Work Phone: Start: 02-21-2023 End: 02-21-2023 Patient encounter procedure Patsy Daindramarcela LABORER [employer] E[employer]ALMER Work Phone: Neurology Comment on above: Parkinsonian feature s (Primary Dx); Lumbar pain; Unstable gait; Transient cerebral ischemia, unspecified type; Double vision; Vertigo Start: 12-27-2022 End: 12-27-2022 Patient encounter procedure Patsy Soto [employer]OR[employer] E[employer]ALMER Work Phone: Neurology Comment on above: Parkinsonian feature s (Primary Dx); Lumbar pain; Unstable gait Start: 10-30-2022 End: 10-30-2022 Patient encounter procedure Basilio LANGLEYC Work Phone: [facility] Comment on above: Parkinson's syndrome (HCC) (Primary Dx); Screening for prostate cancer Start: 10-22-2022 Telephone encounter Basilio NORIEGA-C Work Phone: [facility] Comment on above: Orders Start: 09-28-2022 End: 09-28-2022 ambulatory PA Basilio NORIEGA Work Phone: [facility] Work Phone: Start: 09-28-2022 End: 09-28-2022 Discharged Recurring HARI NORIEGA Work Phone: [facility]-Physical Therapy Start: 09-06-2022 End: 09-06-2022 Patient encounter procedure HARI NORIEGA Work Phone: [facility] Start: 08-22-2022 ambulatory Patsy Daindrabryce ronny LABORER [employer] E[employer]MER Work Phone: Neurology Comment on above: Parkinson's Disease Start: 08-14-2022 Telephone encounter Basilio LANGLEYC Work Phone: [facility] Comment on above: Referral Request Start: 08-02-2022 End: 08-02-2022 Patient encounter procedure HARI NORIEGA Work Phone: [facility] Start: 07-30-2022 Telephone encounter Basilio LANGLEYC Work Phone: [address] [place] [address] Comment on above: Orders Start: 07-25-2022 Orders Only Benton RIVASTRADE EMBALMER Work Phone: Neurology Comment on above: Parkinsonian feature s (Primary Dx) Start: 07-06-2022 ambulatory Basilio Thomas on PA-C Work Phone: [facility] [place] Comment on above: X-ray Start: 07-05-2022 End: 07-05-2022 Subsequent hospital visit by physician Hannah [facility] [place] S[place] Work Phone: Radiology Comment on above: Primary osteoarthrit is of both knees [M17.0] Start: 07-05-2022 End: 07-05-2022 Patient encounter procedure Shell Lewis MD Work Phone: [facility] Comment on above: Spinal stenosis, lum bar region, without neurogenic claudication (Primary Dx); Lumbar spondylosis; Lumbar radiculopathy; Meralgia paresthetica of right side; Primary osteoarthritis of both knees Start: 06-15-2022 Telephone encounter Basilio Abraham PA-C Work Phone: [facility] [place] Comment on above: Orders Start: 06-14-2022 End: 06-14-2022 Patient encounter procedure Basilio Abraham PA-C Work Phone: [facility] [place] Comment on above: Psoriasis (Primary D x); DDD (degenerative disc disease), lumbar; Lumbar foraminal stenosis Start: 05-03-2022 Telephone encounter Shell Lewis MD Work Phone: [facility] Comment on above: Patient Update Start: 05-03-2022 End: 05-03-2022 Patient encounter procedure Shell Lewis MD Work Phone: [facility] Comment on above: Lumbar spondylosis ( Primary Dx); Spinal stenosis, lumbar region, without neurogenic claudication; Lumbar radiculopathy; Meralgia paresthetica of right side Start: 04-17-2022 ambulatory Basilio rai PA-C Work Phone: [facility] [place] Comment on above: Rx renewal. Start: 03-08-2022 End: 03-08-2022 Patient encounter procedure Basilio Yao Jarad ANNA Work Phone: [facility] [place] Comment on above: DDD (degenerative di sc disease), lumbar (Primary Dx); Lumbar foraminal stenosis; Underweight; Parkinsonian features; Levoscoliosis Start: 02-07-2022 Telephone encounter Basilio Yao Jarad ANNA Work Phone: [facility] [place] Comment on above: Patient Question; Or ders Start: 02-06-2022 Telephone encounter Basilio Yao Jarad ANNA Work Phone: [facility] [place] Comment on above: Appointment; Future Appointment (Pain Management) Start: 02-05-2022 End: 02-05-2022 Patient encounter procedure Basilio Abraham SHOSHANA Work Phone: [facility] [place] Comment on above: Parkinsonian feature s (Primary Dx); Underweight; Hypothyroidism, acquired; Lumbar foraminal stenosis; Sacroiliac pain Start: 01-23-2022 ambulatory Basilio rai SHOSHANA Work Phone: [facility] [place] Start: 01-23-2022 Patient encounter procedure Basilio Abraham SHOSHANA Work Phone: [facility] [place] Comment on above: Referral to neurolog ist? Start: 12-13-2021 End: 12-13-2021 Subsequent hospital visit by physician Xr [facility] [place] Work Phone: Radiology Start: 03-20-2021 End: 03-20-2021 [facility] Comment on above: Acute midline low ba ck pain with right-sided sciatica [M54.41] Procedures Date Procedure Procedure Detail Performing Clinician Start: 07-28-2024 [employer] COVI D-19 VACCINE AGE 12+ YR (TREIRNATMiguel) Viola Phelps APRN.[employer] Work Phone: Start: 04-06-2024 Ecg routine ecg w/le ast 12 lds i&r only [facility] Provider Start: 11-18-2023 MRI of lumbar spine HARI NORIEGA Work Phone: Start: 11-07-2023 X-ray of lumbar spin e, two or three views PA CAYLA NORIEGA Work Phone: Start: 03-28-2023 Mri brain brain stem w/o contrast material Patsy Soto [employer] Work Phone: Start: 08-02-2022 Plain x-ray of hand HARI NORIEGA Work Phone: Start: 05-03-2022 Adult depression scr eening assessment Shell Lewis MD Work Phone: Start: 02-05-2022 Adult depression scr eening assessment CAYLA Abraham PA-C Work Phone: Start: 12-13-2021 Radex hip unilateral with pelvis 2-3 views [facility] Provider Start: 03-20-2021 Radex spine lumbosac ral 2/3 views Basilio QiuMaximilian Jarad ANNA Work Phone: Start: 09-09-2017 Adult depression scr eening assessment CAYLA Abraham PA-C Work Phone: Plan of Treatment Date Care Activity Detail Author Start: 10-28-2027 Diabetes Screening Diabetes Screening [facility] Start: 04-06-2027 Diabetes Screening Diabetes Screening [facility] Start: 04-16-2026 DIABETES SCREEN DIABETES SCREEN [facility] Start: 04-16-2026 Diabetes Screening Diabetes Screening [facility] Start: 02-19-2026 Annual PCP Team Chronic Disease Visit Annual PCP Team Chronic Disease Visit [facility] Start: 01-20-2026 Annual PCP Team Chronic Disease Visit Annual PCP Team Chronic Disease Visit [facility] Start: 12-02-2025 Annual PCP Team Chronic Disease Visit Annual PCP Team Chronic Disease Visit [facility] Start: 10-28-2025 Annual PCP Team Chronic Disease Visit Annual PCP Team Chronic Disease Visit [facility] Start: 07-28-2025 Annual PCP Team Chronic Disease Visit Annual PCP Team Chronic Disease Visit [facility] Start: 05-24-2025 Influenza vaccination Influenza Vaccine (Season Ended) [facility] Start: 05-19-2025 End: 05-19-2025 Patient encounter procedure 05/19/2025 3:20 PM EDT Office Visit Family Medicine [place] [address] [place] [address] Viola Phelps APRN.[employer] [address] [place] [address] Follow Up--3 month (40 min per CH) Family [facility] [place] Comment on above: Follow Up--3 month (40 min per CH) Start: 04-06-2025 Annual PCP Team Chronic Disease Visit Annual PCP Team Chronic Disease Visit [facility] Start: 03-22-2025 Influenza vaccination [facility] Comment on above: Postponed from 05/24/2024 (Declined at t his time) Start: 02-19-2025 End: 02-19-2025 Patient encounter procedure 02/19/2025 2:20 PM EDT Office Visit Family Medicine [place] [address] [facility] [place], [place] [address] Viola Phelps, ANIA.[employer] [address] [facility] [place] [address] Follow Up--1 month rescheduled (40 min per CH) Family [facility] [place] Comment on above: Follow Up--1 month rescheduled (40 min p er CH) Start: 02-05-2025 DIABETES SCREEN DIABETES SCREEN [facility] Start: 01-25-2025 Covid-19 Vaccine () Covid-19 Vaccine () [facility] Start: 12-30-2024 End: 12-30-2024 Patient encounter procedure 12/30/2024 3:20 PM EDT Office Visit Family Medicine [place] [address] [facility] [place], [place] [address] Viola Phelps APRN.[employer] [address] [facility] [place] [address] 1m f/u (40 min per CH) Family Medicine [place] Comment on above: 1m f/u (40 min per CH) Start: 12-29-2024 Annual PCP Team Chronic Disease Visit Annual PCP Team Chronic Disease Visit [facility] Start: 12-02-2024 End: 12-02-2024 Patient encounter procedure 12/02/2024 1:40 PM EDT Office Visit Family [facility] [place] [address] [place] [address] Viola Phelps APRN.[employer] [address] [place] [address] 1m f/u (40 min per CH) [facility] [place] Comment on above: 1m f/u (40 min per CH) Start: 12-01-2024 Annual PCP Team Chronic Disease Visit Annual PCP Team Chronic Disease Visit [facility] Start: 10-28-2024 End: 01-27-2025 25-hydroxyvitamin D3 [Mass/volume] in Serum or Plasma [facility] Comment on above: Expected: 10/28/2024, Expires: Start: 10-28-2024 End: 01-27-2025 CBC W Auto Differential panel - Blood [facility] Work Phone: Comment on above: Expected: 10/28/2024, Expires: Start: 10-28-2024 End: 01-27-2025 Comprehensive metabolic 2000 panel - Serum or Plasma [facility] Comment on above: Expected: 10/28/2024, Expires: Start: 10-28-2024 End: 10-28-2024 Patient encounter procedure [facility] Comment on above: 3m f/u 3m f/u (40 min per C H) Start: 10-28-2024 End: 01-27-2025 Thyrotropin [Units/volume] in Serum or Plasma [facility] Comment on above: Expected: 10/28/2024, Expires: Start: 10-28-2024 End: 01-27-2025 Thyroxine (T4) free [Mass/volume] in Serum or Plasma [facility] Comment on above: Expected: 10/28/2024, Expires: Start: 10-27-2024 End: 10-27-2024 Patient encounter procedure 10/27/2024 4:15 PM EST [facility] [address] [facility] [place] [address] Kirstin Aldridge PA-C [address] [facility] [place] [address] Follow up Rx, Parkinsons Neurology Comment on above: Follow up Rx, Parkinsons Start: 09-23-2024 Advance Directive Discussion Advance Directive Discussion [facility] Start: 08-04-2024 End: 08-04-2024 Patient encounter procedure 08/04/2024 3:30 PM EST Office Visit Cardiology [address] [place] [address] Palpitations [R00.2] Cardiology Comment on above: Palpitations [R00.2] Start: 05-24-2024 Covid-19 Vaccine ( season) Covid-19 Vaccine () [facility] Start: 05-24-2024 Covid-19 Vaccine () Covid-19 Vaccine () [facility] Start: 05-24-2024 Influenza vaccination [facility] Start: 05-21-2024 ANNUAL PCP TEAM CHRONIC DISEASE VISIT ANNUAL PCP TEAM CHRONIC DISEASE VISIT [facility] Start: 04-23-2024 End: 04-23-2024 Patient encounter procedure Radiology Comment on above: Family hx of aortic aneurysm [Z82.49] Palpitations [R00.2] Start: 04-06-2024 End: 07-06-2024 Ferritin [Mass/volume] in Serum or Plasma [facility] Comment on above: Expected: 04/06/2024, Expires: Start: 04-06-2024 End: 07-06-2024 Iron and Iron binding capacity panel - Serum or Plasma [facility] Comment on above: Expected: 04/06/2024, Expires: 4 Start: 04-06-2024 End: 07-06-2024 Magnesium [Mass/volume] in Serum or Plasma [facility] Work Phone: Comment on above: Expected: 04/06/2024, Expires: 4 Start: 04-06-2024 End: 07-06-2024 PSA/PROSTATE SPECIFIC ANTIGEN SCREENING [facility] Comment on above: Expected: 04/06/2024, Expires: Start: 03-30-2024 End: 03-30-2024 Patient encounter procedure 03/30/2024 3:00 PM EDT Office Visit [facility] [place] [address] [place], [place] [address] Basilio Abraham PA-C [address] [facility] [place] [address] 3 month follow up [facility] Comment on above: 3 month follow up Start: 03-30-2024 End: 06-29-2024 CBC W Auto Differential panel - Blood CBC + DIFF Lab Routine Acquired hypothyroidism Underweight Expected: 03/30/2024, Expires: 06/29/2024 [facility] Work Phone: Comment on above: Expected: 03/30/2024, Expires: Start: 03-30-2024 End: 06-29-2024 Comprehensive metabolic 2000 panel - Serum or Plasma COMP METABOLIC PANEL Lab Routine Acquired hypothyroidism Underweight Expected: 03/30/2024, Expires: 06/29/2024 [facility] Work Phone: Comment on above: Expected: 03/30/2024, Expires: Start: 03-30-2024 End: 06-29-2024 Prealbumin [Mass/volume] in Serum or Plasma PREALBUMIN BLD Lab Routine Underweight Expected: 03/30/2024, Expires: 06/29/2024 [facility] Work Phone: Comment on above: Expected: 03/30/2024, Expires: Start: 03-30-2024 End: 06-29-2024 Thyrotropin [Units/volume] in Serum or Plasma TSH BLD Lab Routine Acquired hypothyroidism Underweight Expected: 03/30/2024, Expires: 06/29/2024 [facility] Work Phone: Comment on above: Expected: 03/30/2024, Expires: Start: 03-22-2024 Influenza vaccination Influenza Vaccine (#1) [facility] Comment on above: Postponed from 05/24/2023 (Declined at t his time) Start: 02-04-2024 End: 02-04-2024 Patient encounter procedure 02/04/2024 2:30 PM EDT Office Visit [facility] [address] [place], [place] [id number] Tonya Conroy, OD [address] [place] [address] Visual changes [H53.9] Ophthalmology Comment on above: Visual changes [H53.9] Start: 01-22-2024 End: 01-22-2024 Patient encounter procedure 01/22/2024 3:30 PM EDT Office Visit Neurology [address] [place], [place] [id number] Kirstin Aldridge PA-C [address] [place], [place] [id number] Follow up Rx, Parkinsons Neurology Comment on above: Follow up Rx, Parkinsons Start: 11-21-2023 Covid-19 Vaccine ( season) Covid-19 Vaccine () [facility] Start: 10-30-2023 ANNUAL PCP TEAM CHRONIC DISEASE VISIT ANNUAL PCP TEAM CHRONIC DISEASE VISIT [facility] Start: 09-23-2023 Advance Directive Discussion Advance Directive Discussion [facility] Start: 09-23-2023 Behavioral Health Screening Behavioral Health Screening [facility] Start: 09-23-2023 Depression Assessment Depression Assessment [facility] Start: 06-14-2023 ANNUAL PCP TEAM CHRONIC DISEASE VISIT ANNUAL PCP TEAM CHRONIC DISEASE VISIT [facility] Start: 05-24-2023 Covid-19 Vaccine ( season) Covid-19 Vaccine ( season) [facility] Start: 05-24-2023 Influenza vaccination [facility] Start: 05-22-2023 End: 07-22-2023 25-hydroxyvitamin D3 [Mass/volume] in Serum or Plasma VITAMIN D 25 HYDROXY Lab Routine Polyarthralgia Vitamin D deficiency Expected: 05/22/2023, Expires: 07/22/2023 [facility] Work Phone: Comment on above: Expected: 05/22/2023, Expires: Start: 05-22-2023 End: 07-22-2023 Ascorbate [Mass/volume] in Serum or Plasma VITAMIN C Lab Routine Polyarthralgia Poor diet Expected: 05/22/2023, Expires: 07/22/2023 [facility] Work Phone: Comment on above: Expected: 05/22/2023, Expires: Start: 05-22-2023 End: 07-22-2023 Cobalamin (Vitamin B12) [Mass/volume] in Serum or Plasma VITAMIN B12 BLOOD Lab Routine Polyarthralgia Poor diet Expected: 05/22/2023, Expires: 07/22/2023 [facility] Work Phone: Comment on above: Expected: 05/22/2023, Expires: Start: 05-22-2023 End: 07-22-2023 Creatine kinase [Enzymatic activity/volume] in Serum or Plasma CK CREATINE KINASE Lab Routine Myalgia Expected: 05/22/2023, Expires: 07/22/2023 [facility] Work Phone: Comment on above: Expected: 05/22/2023, Expires: Start: 05-22-2023 End: 07-22-2023 Folate [Mass/volume] in Serum or Plasma FOLATE SERUM Lab Routine Polyarthralgia Poor diet Expected: 05/22/2023, Expires: 07/22/2023 [facility] Work Phone: Comment on above: Expected: 05/22/2023, Expires: Start: 05-22-2023 End: 07-22-2023 Lactate dehydrogenase [Enzymatic activity/volume] in Serum or Plasma LD LACTATE DEHYDRO Lab Routine Myalgia Expected: 05/22/2023, Expires: 07/22/2023 [facility] Work Phone: Comment on above: Expected: 05/22/2023, Expires: 3 Start: 05-21-2023 End: 07-21-2023 MICHELLE BY IFA WITH REFLEX MICHELLE BY IFA WITH REFLEX Lab Routine Polyarthralgia Expected: 05/21/2023, Expires: 07/21/2023 [facility] Work Phone: Comment on above: Expected: 05/21/2023, Expires: 3 Start: 05-21-2023 End: 07-21-2023 Borrelia burgdorferi IgG and IgM panel - Serum LYME AB LATE >30 DAYS SYMPTOMS Lab Routine Polyarthralgia Expected: 05/21/2023, Expires: 07/21/2023 [facility] Work Phone: Comment on above: Expected: 05/21/2023, Expires: 3 Start: 05-21-2023 End: 07-21-2023 C reactive protein [Mass/volume] in Serum or Plasma C-REACTIVE PROTEIN (CRP) Lab Routine Myalgia Polyarthralgia Expected: 05/21/2023, Expires: 07/21/2023 [facility] Work Phone: Comment on above: Expected: 05/21/2023, Expires: 3 Start: 05-21-2023 End: 07-21-2023 Erythrocyte sedimentation rate SED RATE WESTERGREN Lab Routine Myalgia Polyarthralgia Expected: 05/21/2023, Expires: 07/21/2023 [facility] Work Phone: Comment on above: Expected: 05/21/2023, Expires: 3 Start: 05-21-2023 End: 07-21-2023 Urate [Mass/volume] in Serum or Plasma URIC ACID BLOOD Lab Routine Polyarthralgia Expected: 05/21/2023, Expires: 07/21/2023 [facility] Work Phone: Comment on above: Expected: 05/21/2023, Expires: 3 Start: 05-03-2023 Adult depression screening assessment DEPRESSION SCREENING [facility] Start: 03-22-2023 Influenza vaccination INFLUENZA (#1) [facility] Comment on above: Postponed from 05/24/2022 (Declined at t his time) Start: 03-08-2023 ANNUAL PCP TEAM CHRONIC DISEASE VISIT ANNUAL PCP TEAM CHRONIC DISEASE VISIT [facility] Start: 02-05-2023 Adult depression screening assessment DEPRESSION SCREENING [facility] Start: 02-05-2023 ANNUAL PCP TEAM CHRONIC DISEASE VISIT ANNUAL PCP TEAM CHRONIC DISEASE VISIT [facility] Start: 02-05-2023 COVID-19 VACCINE (4 - Booster for Pfizer series) COVID-19 VACCINE (4 - Booster for Pfizer series) [facility] Comment on above: Postponed from 12/23/2021 (Currently Juwan eduled) Start: 02-05-2023 PNEUMOCOCCAL: 65+ (1 - PCV) PNEUMOCOCCAL: 65+ (1 - PCV) [facility] Comment on above: Postponed from 2010 (Declined at t his time) Start: 02-05-2023 PNEUMOVAX AGE 65 AND OVER WITH 5YR LOOKBACK (#1) PNEUMOVAX AGE 65 AND OVER WITH 5YR LOOKBACK (#1) [facility] Comment on above: Postponed from 2010 (Declined at t his time) Start: 02-05-2023 SHINGRIX VACCINE (1 of 2) SHINGRIX VACCINE (1 of 2) [facility] Comment on above: Postponed from 1995 (Insurance Cov erage) Start: 02-05-2023 Urine microalbumin profile DTAP,TDAP,TD (1 - Tdap) [facility] Comment on above: Postponed from 1964 (Insurance Cov erage) Start: 01-07-2023 DIABETES SCREEN DIABETES SCREEN [facility] Start: 12-23-2022 COVID-19 VACCINE (6 - Pfizer series) COVID-19 VACCINE (6 - Pfizer series) [facility] Start: 10-30-2022 End: 12-30-2022 IgA [Mass/volume] in Serum or Plasma IGA BLD Lab Routine Parkinson's syndrome (HCC) Expected: 10/30/2022, Expires: 12/30/2022 [facility] Work Phone: Comment on above: Expected: 10/30/2022, Expires: Start: 10-30-2022 End: 12-30-2022 IgE [Units/volume] in Serum or Plasma IGE BLD Lab Routine Parkinson's syndrome ([facility]) Expected: 10/30/2022, Expires: 12/30/2022 [facility] Work Phone: Comment on above: Expected: 10/30/2022, Expires: 3 Start: 10-30-2022 End: 12-30-2022 IgG [Mass/volume] in Serum or Plasma IGG Lab Routine Parkinson's syndrome ([facility]) Expected: 10/30/2022, Expires: 12/30/2022 [facility] Work Phone: Comment on above: Expected: 10/30/2022, Expires: 3 Start: 10-30-2022 End: 12-30-2022 IgM [Mass/volume] in Serum or Plasma IGM Lab Routine Parkinson's syndrome ([facility]) Expected: 10/30/2022, Expires: 12/30/2022 [facility] Work Phone: Comment on above: Expected: 10/30/2022, Expires: 3 Start: 10-30-2022 End: 12-30-2022 PSA/PROSTSPECAG SCRN PSA/PROSTSPECAG SCRN Lab Routine Screening for prostate cancer Expected: 10/30/2022, Expires: 12/30/2022 [facility] Work Phone: Comment on above: Expected: 10/30/2022, Expires: 3 Start: 09-25-2022 Patient referral [facility] Work Phone: Start: 09-23-2022 ADVANCE DIRECTIVE DISCUSSION ADVANCE DIRECTIVE DISCUSSION [facility] Start: 09-23-2022 DEPRESSION ASSESSMENT DEPRESSION ASSESSMENT [facility] Start: 05-24-2022 Influenza vaccination [facility] Start: 05-15-2022 ANNUAL PCP TEAM CHRONIC DISEASE VISIT ANNUAL PCP TEAM CHRONIC DISEASE VISIT [facility] Start: 04-05-2022 COVID-19 VACCINE (5 - Booster for Pfizer series) COVID-19 VACCINE (5 - Booster for Pfizer series) [facility] Start: 02-05-2022 End: 04-07-2022 CBC panel - Blood by Automated count [facility] Work Phone: Comment on above: Expected: 02/05/2022, Expires: 2 Start: 02-05-2022 End: 04-07-2022 Comprehensive metabolic 2000 panel - Serum or Plasma [facility] Work Phone: Comment on above: Expected: 02/05/2022, Expires: 2 Start: 02-05-2022 End: 04-07-2022 Folate [Mass/volume] in Serum or Plasma [facility] Work Phone: Comment on above: Expected: 02/05/2022, Expires: 2 Start: 02-05-2022 End: 04-07-2022 Thyrotropin [Units/volume] in Serum or Plasma [facility] Work Phone: Comment on above: Expected: 02/05/2022, Expires: 2 Start: 02-05-2022 End: 04-07-2022 VITAMIN B1 (THIAMINE), WHOLE BLOOD [facility] Work Phone: Comment on above: Expected: 02/05/2022, Expires: 2 Start: 02-05-2022 End: 04-07-2022 VITAMIN B12 BLOOD [facility] Work Phone: Comment on above: Expected: 02/05/2022, Expires: 2 Start: 09-23-2021 ADVANCE DIRECTIVE DISCUSSION ADVANCE DIRECTIVE DISCUSSION [facility] Start: 09-23-2021 DEPRESSION ASSESSMENT DEPRESSION ASSESSMENT [facility] Start: 2020 RSV Vaccine (1 - 1-dose 75+ series) RSV Vaccine (1 - 1-dose 75+ series) [facility] Start: 09-09-2018 Adult depression screening assessment DEPRESSION SCREENING [facility] Start: 2010 Pneumococcal Vaccine: 65+ (1 - PCV) Pneumococcal Vaccine: 65+ (1 - PCV) [facility] Start: 2010 Pneumococcal Vaccine: 65+ (1 of 1 - PCV) Pneumococcal Vaccine: 65+ (1 of 1 - PCV) [facility] Start: 2010 PNEUMOCOCCAL: 65+ (1 - PCV) PNEUMOCOCCAL: 65+ (1 - PCV) [facility] Start: 2010 PNEUMOVAX AGE 65 AND OVER WITH 5YR LOOKBACK (#1) PNEUMOVAX AGE 65 AND OVER WITH 5YR LOOKBACK (#1) [facility] Start: 2005 RSV Vaccine (1 - 1-dose 60+ series) RSV Vaccine (1 - 1-dose 60+ series) [facility] Start: 1995 Pneumococcal Vaccine: 50+ (1 of 1 - PCV) Pneumococcal Vaccine: 50+ (1 of 1 - PCV) [facility] Start: 1995 SHINGRIX VACCINE (1 of 2) SHINGRIX VACCINE (1 of 2) [facility] Start: 1964 Urine microalbumin profile [facility] Start: 1963 Anxiety Screening Anxiety Screening [facility] Start: 1963 Depression Screening Depression Screening [facility] ECG COMPLETE [facility] Comment on above: Ordered: 04/06/2024 End: 04-06-2025 Echocardiography ECHO Cardiology Routine Palpitations 1 Occurrences starting 04/06/2024 until 04/06/2025 [facility] Comment on above: 1 Occurrences starting 04/06/2024 until 04/06/2025 Hemoglobin.gastroint mylain al.lower [Presence] in Stool by Immunoassay IMMUNOCHEMICAL FECAL OCCULT BLOOD TEST Lab Routine Weight loss Ordered: 12/02/2024 [facility] Work Phone: Comment on above: Ordered: 12/02/2024 End: 03-22-2024 Mri brain brain stem w/o contrast material MRI BRAIN WO IVCON Radiology Routine Transient cerebral ischemia, unspecified type 1 Occurrences starting 02/21/2023 until 03/22/2024 [facility] Work Phone: Comment on above: 1 Occurrences starting 02/21/2023 until 03/22/2024 Patient referral [facility] Work Phone: End: 05-06-2025 US Abdominal Aorta for screening US SCREENING FOR AAA Radiology Routine Family hx of aortic aneurysm 1 Occurrences starting 04/06/2024 until 05/06/2025 [facility] Comment on above: 1 Occurrences starting 04/06/2024 until 05/06/2025 End: 08-05-2023 XR HAND GENERAL 3V PA/LAT/OBL LEFT XR HAND GENERAL 3V PA/LAT/OBL LEFT Radiology Routine Left hand pain Left wrist pain 1 Occurrences starting 07/06/2022 until 08/05/2023 [facility] Work Phone: Comment on above: 1 Occurrences starting 07/06/2022 until 08/05/2023 XR KNEE GENERAL 4V A P BOTH/PA BOTH/LAT/MERC LEFT XR KNEE GENERAL 4V AP BOTH/PA BOTH/LAT/MERC LEFT Radiology Routine Primary osteoarthritis of both knees Ordered: 07/05/2022 [facility] Work Phone: Comment on above: Ordered: 07/05/2022 End: 08-04-2023 XR KNEE GENERAL 4V AP BOTH/PA BOTH/LAT/MERC RIGHT XR KNEE GENERAL 4V AP BOTH/PA BOTH/LAT/MERC RIGHT Radiology Routine Primary osteoarthritis of both knees 1 Occurrences starting 07/05/2022 until 08/04/2023 [facility] Work Phone: Comment on above: 1 Occurrences starting 07/05/2022 until 08/04/2023 End: 07-05-2022 XR KNEE GENERAL 4V AP BOTH/PA BOTH/LAT/MERC RIGHT [facility] Work Phone: Comment on above: 1 Occurrences starting 07/05/2022 until 07/05/2022 End: 08-05-2023 XR WRIST GENERAL 3V PA/LAT/OBL LEFT XR WRIST GENERAL 3V PA/LAT/OBL LEFT Radiology Routine Left hand pain Left wrist pain 1 Occurrences starting 07/06/2022 until 08/05/2023 [facility] Work Phone: Comment on above: 1 Occurrences starting 07/06/2022 until 08/05/2023 [facility] Immunizations Immunization Date Immunization Notes Care Provider Portillo perez 07-28-2024 COVID-19 vaccine, ag e 12+ yr (PFIZER-BIONTECH COMIRNATY) Viola Phelps APRN.[employer] Work Phone: [facility] 12-15-2020 COVID-19 vaccine, ag e 12+ yr (PFIZER-BIONTECH - PURPLE TOP) NA Abraham PA-C Work Phone: [facility] 11-24-2020 COVID-19 vaccine, ag e 12+ yr (PFIZER-BIONTECH - PURPLE TOP) NA Abraham PA-C Work Phone: [facility] 10-13-2018 influenza virus vacc ine, unspecified formulation NA Abraham PA-C Work Phone: [facility] Payers Date Payer Category Payer Self-pay [id number] 2023 Unknown [id number] 2020 Private Health Insurance [facility] [id number] 2020 Unknown [employer]PPLEMENT [id number] 2020-Present [phone] [place] [address] Indemnity [id number] 2020 Unknown [employer] SUPPLE[employer] [id number] 2020-Present [phone] [id number] [place] [address] [employer] [id number] 2020 Medicare [id number] 2010 Medicare MEDICARE MEDICAR E A AND B [id number] 2010-Present [phone] [place] [address] Medicare [id number] 2010 Medicare [id number] 2010 Medicare [id number] Unknown [id number] Unknown [id number] Unknown [id number] Unknown [id number] Social History Date Type Detail Facility Start: 03-28-2015 End: 10-30-2022 Tobacco smoking status NHIS Ex-smoker [facility] Start: 03-28-2015 End: 10-30-2022 Tobacco use and exposure Smokeless tobacco non-user [facility] Start: 09-26-2021 End: 02-19-2025 Alcohol intake Current non-drinker of alcohol (finding) [facility] Start: 01-23-2020 History SDOH Alcohol Frequency 1 [facility] Start: 10-13-2018 History SDOH Alcohol Comment drank some in the past [facility] Start: 01-23-2020 History SDOH Social Connections Phone 2 [facility] Start: 01-23-2020 History SDOH Social Connections Living 5 [facility] Start: 01-23-2020 History SDOH Physica l Activity MPS 3 [facility] Start: 01-23-2020 History SDOH Financial 4 [facility] Start: 01-22-2020 Education 19 [facility] Start: 10-13-2018 End: 10-30-2022 Tobacco Comment 1PPD x 8-10 years [facility] Start: 1945 Sex Assigned At Not on file [facility] Start: 02-18-2021 End: 07-05-2022 Exposure to SARS-CoV-2 (event) Not sure [facility] History of tobacco use Current smoker [facility] Work Phone: Start: 09-06-2022 End: 11-07-2023 Tobacco smoking status NHIS Unknown if ever smoked [facility] Start: 1945 Sex Assigned At Male [facility] Start: 01-22-2020 End: 02-21-2023 History of Social function [facility] Start: 01-22-2020 End: 02-21-2023 Social connection and isolation panel [facility] Do you belong to any clubs or organizations such as christianity groups, unions, fraternal or athletic groups, or school groups? No [facility] Are you now , , , , never or living with a partner? [facility] How often to you hav e a drink containing alcohol? Never [facility] Average Number of Drinks Not on file [facility] Work Phone: How hard is it for y ou to pay for the very basics like food, housing, medical care, and heating Not very hard [facility] Do you feel stress - tense, restless, nervous, or anxious, or unable to sleep at night because your mind is troubled all the time - these days [OSQ] Not at all [facility] (I/We) worried melina er (my/our) food would run out before (I/we) got money to buy more. Never true [facility] Functional Status Date Assessment Result Facility 03-28-2015 Are you deaf, or do you have serious difficulty hearing No 03/28/2015 11:48 AM EDT Ester Maradiaga Ma No [facility] 03-28-2015 Are you blind, or do you have serious difficulty seeing, even when wearing glasses No 03/28/2015 11:48 AM EDT Hiren RaiLashonna No [facility] 03-28-2015 Do you have serious difficulty walking or climbing stairs Yes 03/28/2015 11:48 AM EDT Hiren Rai Ester Yes [facility] 03-28-2015 Do you have difficul ty dressing or bathing No 03/28/2015 11:48 AM EDT Hiren Rai Ester No [facility] 03-28-2015 Because of a physica l, mental, or emotional condition, do you have difficulty doing errands alone such as visiting a physician's office or shopping No 03/28/2015 11:48 AM EDT Hiren Rai Ester No [facility] Mental Status Date Assessment Result Facility 03-28-2015 Because of a physica l, mental, or emotional condition, do you have serious difficulty concentrating, remembering, or making decisions No 03/28/2015 11:48 AM EDT Hiren Rai Ester No [facility] Clinical Notes 03-20-2021 to 02-19-2025 Patient InstructionsViola Phelps APRN.CNP - 02/19/2025 2:47 PM EDTTelephone Encounter - Cale Mix MSW - 01/25/2025 10:47 AM EDTPatient InstructionsPatient InstructionsPatient Instructions Note Date & Type Note Facility 02-19-2025 Instructions Viola Phelps APRN.CNP - 02/19/2025 3:05 PM EDT Try the higher dose tizanidine. Let me know if that is helpful. I'll see what I can find outre: parkinson's specialist. Recheck in 3 months. documented in this encounter [facility] 02-19-2025 Note HNO ID: [id number] Author: VIOLA PHELPS APRN.CNP Service: ? Author Type: Nurse Practitioner Type: Progress Notes Filed: 02/19/2025 17:45 Note Text: This is a 79 year old male who presents today with: Patient presents with: Recheck: 1 month follow up HISTORY OF PRESENT ILLNESS: Nava Healy is a 79 year old male. Patient presents with: Recheck: 1 month follow up Pt presents today for 1 month follow up. Weight loss Stable. He is taking boost supplement. Continues to try to eat a good meal daily. Also snacks. Chronic pain. Tried the tizanidine. Refers did not help, but no side effects. He did not start the Remeron. Still considering assisted living. Reports just not there yet. PAST MEDICAL HISTORY: PAST MEDICAL HISTORY Diagnosis Date Hypothyroidism (acquired) age 68 PAST SURGICAL HISTORY Procedure Laterality Date TONSILLECTOMY AND ADENOIDECTOMY HX ALLERGIES Banana MEDICATIONS Current Outpatient Medications Medication Sig mirtazapine (REMERON) 15 mg tablet Take 1 tablet by mouth daily at bedtime. tiZANidine (ZANAFLEX) 2 mg tablet Take 1 tablet by mouth two times a day as needed (for pain). levothyroxine (SYNTHROID) 50 mcg tablet take 1 tablet by mouth every morning ON AN EMPTY STOMACH FOR THYROID Fnagcfx-Mtodxamzwaexj-Npspnuai (EXCEDRIN) 250-250-65 mg per tablet Take 1 tablet by mouth every 6 hours as needed. vitamin B complex (B COMPLEX ORAL) Take by mouth. No current facility-administered medications for this visit. FAMILY HISTORY Problem Relation Age of Onset Cancer Mother ? uterine Alcohol/Drug Father esophageal varices Alzheimer's Disease Maternal Grandmother Social History Tobacco Use Smoking status: Former Smokeless tobacco: Never Tobacco comments: 1PPD x 8-10 years Vaping Use Vaping status: Never Used Substance Use Topics Alcohol use: No Comment: drank some in the past Drug use: Not Currently Types: Marijuana Comment: remote marijuana EXAM: BP 107/70 Pulse 80 Resp 16 Wt 54.4 kg (120 lb) SpO2 98% BMI 16.27 kg/m? PHYSICAL EXAM: General Appearance: Well appearing, alert, in no acute distress, well-hydrated, well nourished.. Skin: Skin color, texture, turgor normal, no suspicious rashes or lesions. Head: Normocephalic, no masses, lesions, tenderness or abnormalities. Eyes: Anicteric sclera. Extraocular movements are intact. . Lungs: Lungs clear to auscultation. No wheezing, rhonchi, rales.. Heart: RRR without murmur, gallop, or rubs. No ectopy. Neurologic: Gait normal with cane -- short distance. + parkinson gait. ASSESSMENT/PLAN: 1. 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 He cannot travel. Requesting virtual appt. Aware that the may not be able to be accommodated. - CONSULT TO NEUROLOGY 2. Chronic pain syndrome - ICD9: 338.4, ICD10: G89.4 He had no effect witht he tizanidine 2 mg, but also no side effects. Will trial increasing to 4 mg. - TIZANIDINE 2 MG TABLET 3. Lumbar foraminal stenosis - ICD9: 724.02, ICD10: M48.061 As above. - TIZANIDINE 2 MG TABLET 4. Weight loss - ICD9: 783.21, ICD10: R63.4 Weight stable. Discussed treatment plan and patient voices understanding. Patient's questions answered appropriately. Medications and potential side effects were discussed and patient voices understanding. Return to the office as scheduled or as needed for worsening/no improvement. Viola Phelps APRN.[facility] 02-19-2025 History of Present illness Narrative This is a 79 year old male who presents today with: Patient presents with: Recheck: 1 month follow up HISTORY OF PRESENT ILLNESS: Nava Healy is a 79 year old male. Patient presents with: Recheck: 1 month follow up Pt presents today for 1 month follow up. Weight loss Stable. He is taking boost supplement. Continues to try to eat a good meal daily. Also snacks. Chronic pain. Tried the tizanidine. Refers did not help, but no side effects. He did not start the Remeron. Still considering assisted living. Reports just not there yet. PAST MEDICAL HISTORY: PAST MEDICAL HISTORY Diagnosis Date Hypothyroidism (acquired) age 68 PAST SURGICAL HISTORY Procedure Laterality Date TONSILLECTOMY AND ADENOIDECTOMY HX ALLERGIES Banana MEDICATIONS Current Outpatient Medications Medication Sig mirtazapine (REMERON) 15 mg tablet Take 1 tablet by mouth daily at bedtime. tiZANidine (ZANAFLEX) 2 mg tablet Take 1 tablet by mouth two times a day as needed (for pain). levothyroxine (SYNTHROID) 50 mcg tablet take 1 tablet by mouth every morning ON AN EMPTY STOMACH FOR THYROID Yiltxjl-Xlezcrcjzprqv-Cklqrnde (EXCEDRIN) 250-250-65 mg per tablet Take 1 tablet by mouth every 6 hours as needed. vitamin B complex (B COMPLEX ORAL) Take by mouth. No current facility-administered medications for this visit. FAMILY HISTORY Problem Relation Age of Onset Cancer Mother ? uterine Alcohol/Drug Father esophageal varices Alzheimer's Disease Maternal Grandmother Social History Tobacco Use Smoking status: Former Smokeless tobacco: Never Tobacco comments: 1PPD x 8-10 years Vaping Use Vaping status: Never Used Substance Use Topics Alcohol use: No Comment: drank some in the past Drug use: Not Currently Types: Marijuana Comment: remote marijuana EXAM: BP 107/70 Pulse 80 Resp 16 Wt 54.4 kg (120 lb) SpO2 98% BMI 16.27 kg/m PHYSICAL EXAM: General Appearance: Well appearing, alert, in no acute distress, well-hydrated, well nourished.. Skin: Skin color, texture, turgor normal, no suspicious rashes or lesions. Head: Normocephalic, no masses, lesions, tenderness or abnormalities. Eyes: Anicteric sclera. Extraocular movements are intact. . Lungs: Lungs clear to auscultation. No wheezing, rhonchi, rales.. Heart: RRR without murmur, gallop, or rubs. No ectopy. Neurologic: Gait normal with cane -- short distance. + parkinson gait. ASSESSMENT/PLAN: 1. 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 He cannot travel. Requesting virtual appt. Aware that the may not be able to be accommodated. - CONSULT TO NEUROLOGY 2. Chronic pain syndrome - ICD9: 338.4, ICD10: G89.4 He had no effect witht he tizanidine 2 mg, but also no side effects. Will trial increasing to 4 mg. - TIZANIDINE 2 MG TABLET 3. Lumbar foraminal stenosis - ICD9: 724.02, ICD10: M48.061 As above. - TIZANIDINE 2 MG TABLET 4. Weight loss - ICD9: 783.21, ICD10: R63.4 Weight stable. Discussed treatment plan and patient voices understanding. Patient's questions answered appropriately. Medications and potential side effects were discussed and patient voices understanding. Return to the office as scheduled or as needed for worsening/no improvement. Viola Phelps APRN.JEZ documented in this encounter [facility] 01-25-2025 Telephone encounter Note [facility] spoke with Jovita Reynolds, and she is going to reach out to patient to discuss assisted living options and how she can assist patient with the process. Gail noted that she would let this MCKINLEY and SHREE Rod know update on AL for patient. [facility] 01-25-2025 Miscellaneous Notes [facility] spoke with Jovita Reynolds, and she is going to reach out to patient to discuss assisted living options and how she can assist patient with the process. Gail noted that she would let this MCKINLEY and SHREE Rod know update on AL for patient. Patient called [facility] and asked for agency that could help him connect with appropriate assisted living/equipment operator intermodal yard care option in the community. Sw and patient discussed Jovita Reynolds as an option to help guide assist patient along the way looking at AL/LTC. Patient noted I would appreciate the guidance and am okay with you referring me to Gail. Sw noted that she would call Gail and discuss with her to reach out to patient. Sw called Gail and left message for her to call this Mckinley back to discuss referral. documented in this encounter [facility] 01-22-2025 Telephone encounter Note Patient called [facility] and asked for agency that could help him connect with appropriate assisted living/intermediate care option in the community. Sw and patient discussed Jovita Reynoldsrol as an option to help guide assist patient along the way looking at AL/LTC. Patient noted I would appreciate the guidance and am okay with you referring me to Gail. Sw noted that she would call Gail and discuss with her to reach out to patient. Mckinley called Gail and left message for her to call this Sw back to discuss referral. [facility] 01-20-2025 Instructions Viola Phelps APRN.[employer] - 01/20/2025 3:34 PM EDT Start the remeron (mirtazapine) bedtime. You can take the tizanidine twice daily as needed for pain. Recheck in 1 month. documented in this encounter [facility] 01-20-2025 Note HNO ID: [id number] Author: VIOLA PHELPS APRN.JEZ Service: ? Author Type: Nurse Practitioner Type: Progress Notes Filed: 01/20/2025 15:47 Note Text: This is a 79 year old male who presents today with: Patient presents with: Recheck: 1 month follow up HISTORY OF PRESENT ILLNESS: Nava Healy is a 79 year old male. Patient presents with: Recheck: 1 month follow up Weight stable. Refers that he has been drinking about boosts a day. Doesn't really eat meals, just grazes throughout the day. Drinks some water. Feels like other liquids get snotty. Reports that he has been considering moving to assisted living vs fpc. It is getting more difficult with self care at home. Refers that he has had a couple of falls. Refers that he has frequent episodes where he starts to walk, but feet aren't moving with him. Chronic lower back/leg pain: Refers that he is interested in trying a muscle relaxer for pain. Refers that he hasn't taken anything in the past. At home, will lay on the floor to help with pain. Did not feel that the cymbalta was helpful. Hard to get comfortable for sleep. PAST MEDICAL HISTORY: PAST MEDICAL HISTORY Diagnosis Date Hypothyroidism (acquired) age 68 PAST SURGICAL HISTORY Procedure Laterality Date TONSILLECTOMY AND ADENOIDECTOMY HX ALLERGIES Banana MEDICATIONS Current Outpatient Medications Medication Sig glycopyrrolate (ROBINUL) 1 mg tablet Take 1 tablet by mouth two times a day. As needed for salivation DULoxetine (CYMBALTA) 20 mg capsule Take 1 capsule by mouth once daily. levothyroxine (SYNTHROID) 50 mcg tablet take 1 tablet by mouth every morning ON AN EMPTY STOMACH FOR THYROID melatonin 1 mg chew Take by mouth. Mlmqtdc-Oibzudioadxgm-Xlmvjpbb (EXCEDRIN) 250-250-65 mg per tablet Take 1 tablet by mouth every 6 hours as needed. vitamin B complex (B COMPLEX ORAL) Take by mouth. No current facility-administered medications for this visit. FAMILY HISTORY Problem Relation Age of Onset Cancer Mother ? uterine Alcohol/Drug Father esophageal varices Alzheimer's Disease Maternal Grandmother Social History Tobacco Use Smoking status: Former Smokeless tobacco: Never Tobacco comments: 1PPD x 8-10 years Vaping Use Vaping status: Never Used Substance Use Topics Alcohol use: No Comment: drank some in the past Drug use: Not Currently Types: Marijuana Comment: remote marijuana EXAM: BP 128/78 Pulse 74 Resp 16 Wt 54.4 kg (120 lb) SpO2 96% BMI 16.27 kg/m? PHYSICAL EXAM: General Appearance: Well appearing, alert, in no acute distress, well-hydrated, well nourished.. Skin: Skin color, texture, turgor normal, no suspicious rashes or lesions. Head: Normocephalic, no masses, lesions, tenderness or abnormalities. Eyes: Anicteric sclera. Extraocular movements are intact. . Lungs: Lungs clear to auscultation. No wheezing, rhonchi, rales.. Heart: RRR without murmur, gallop, or rubs. No ectopy. Neurologic: + tremors ASSESSMENT/PLAN: 1. Chronic pain syndrome - ICD9: 338.4, ICD10: G89.4 (primary diagnosis) Will add remeron to help with pain/sleep. - MIRTAZAPINE 15 MG TABLET Can try a small dose of tizanidine to help with muscle/chronic pain. - TIZANIDINE 2 MG TABLET Recheck in 1 month. 2. Weight loss - ICD9: 783.21, ICD10: R63.4 Stable Continue w/ boost supplementation. Remeron may help with this, as well. 3. Lumbar foraminal stenosis - ICD9: 724.02, ICD10: M48.061 Chronic pain. Not interested in pain management. Will try a small dose of tizanidine to help with pain. - TIZANIDINE 2 MG TABLET Discussed potential side effects of ordered medications. Patient voices understanding. Discussed treatment plan and patient voices understanding. Patient's questions answered appropriately. Medications and potential side effects were discussed and patient voices understanding. Return to the office as scheduled or as needed for worsening/no improvement. Viola Phelps APRN.[facility] 01-20-2025 History of Present illness Narrative This is a 79 year old male who presents today with: Patient presents with: Recheck: 1 month follow up HISTORY OF PRESENT ILLNESS: Nava Healy is a 79 year old male. Patient presents with: Recheck: 1 month follow up Weight stable. Refers that he has been drinking about boosts a day. Doesn't really eat meals, just grazes throughout the day. Drinks some water. Feels like other liquids get snotty. Reports that he has been considering moving to assisted living vs fpc. It is getting more difficult with self care at home. Refers that he has had a couple of falls. Refers that he has frequent episodes where he starts to walk, but feet aren't moving with him. Chronic lower back/leg pain: Refers that he is interested in trying a muscle relaxer for pain. Refers that he hasn't taken anything in the past. At home, will lay on the floor to help with pain. Did not feel that the cymbalta was helpful. Hard to get comfortable for sleep. PAST MEDICAL HISTORY: PAST MEDICAL HISTORY Diagnosis Date Hypothyroidism (acquired) age 68 PAST SURGICAL HISTORY Procedure Laterality Date TONSILLECTOMY AND ADENOIDECTOMY HX ALLERGIES Banana MEDICATIONS Current Outpatient Medications Medication Sig glycopyrrolate (ROBINUL) 1 mg tablet Take 1 tablet by mouth two times a day. As needed for salivation DULoxetine (CYMBALTA) 20 mg capsule Take 1 capsule by mouth once daily. levothyroxine (SYNTHROID) 50 mcg tablet take 1 tablet by mouth every morning ON AN EMPTY STOMACH FOR THYROID melatonin 1 mg chew Take by mouth. Rsbcbxf-Fbwqoaondgxum-Cylrhfpf (EXCEDRIN) 250-250-65 mg per tablet Take 1 tablet by mouth every 6 hours as needed. vitamin B complex (B COMPLEX ORAL) Take by mouth. No current facility-administered medications for this visit. FAMILY HISTORY Problem Relation Age of Onset Cancer Mother ? uterine Alcohol/Drug Father esophageal varices Alzheimer's Disease Maternal Grandmother Social History Tobacco Use Smoking status: Former Smokeless tobacco: Never Tobacco comments: 1PPD x 8-10 years Vaping Use Vaping status: Never Used Substance Use Topics Alcohol use: No Comment: drank some in the past Drug use: Not Currently Types: Marijuana Comment: remote marijuana EXAM: BP 128/78 Pulse 74 Resp 16 Wt 54.4 kg (120 lb) SpO2 96% BMI 16.27 kg/m PHYSICAL EXAM: General Appearance: Well appearing, alert, in no acute distress, well-hydrated, well nourished.. Skin: Skin color, texture, turgor normal, no suspicious rashes or lesions. Head: Normocephalic, no masses, lesions, tenderness or abnormalities. Eyes: Anicteric sclera. Extraocular movements are intact. . Lungs: Lungs clear to auscultation. No wheezing, rhonchi, rales.. Heart: RRR without murmur, gallop, or rubs. No ectopy. Neurologic: + tremors ASSESSMENT/PLAN: 1. Chronic pain syndrome - ICD9: 338.4, ICD10: G89.4 (primary diagnosis) Will add remeron to help with pain/sleep. - MIRTAZAPINE 15 MG TABLET Can try a small dose of tizanidine to help with muscle/chronic pain. - TIZANIDINE 2 MG TABLET Recheck in 1 month. 2. Weight loss - ICD9: 783.21, ICD10: R63.4 Stable Continue w/ boost supplementation. Remeron may help with this, as well. 3. Lumbar foraminal stenosis - ICD9: 724.02, ICD10: M48.061 Chronic pain. Not interested in pain management. Will try a small dose of tizanidine to help with pain. - TIZANIDINE 2 MG TABLET Discussed potential side effects of ordered medications. Patient voices understanding. Discussed treatment plan and patient voices understanding. Patient's questions answered appropriately. Medications and potential side effects were discussed and patient voices understanding. Return to the office as scheduled or as needed for worsening/no improvement. Viola Phelps APRN.JEZ documented in this encounter [facility] 12-07-2024 Telephone encounter Note Your stool blood test was negative (normal). I recommend repeating colorectal cancer screening in one year. Per [facility] 12-07-2024 Telephone encounter Note ----- Message from Viola Phelps APRN.CNP sent at 12/07/2024 9:21 AM EDT ----- Its under the 2/5 phone note. ----- Message ----- From: Pradeep Angel LPN Sent: 12/07/2024 8:43 AM EDT To: Viola Phelps APRN.CNP ----- Message from Pradeep Angel LPN sent at 12/07/2024 8:43 AM EDT ----- There isn't a result note to view. Just a note that says to see Phone Note. [facility] 12-07-2024 Miscellaneous Notes Your stool blood test was negative (normal). I recommend repeating colorectal cancer screening in one year. Per [facility] ----- Message from Viola Phelps APRN.CNP sent at 12/07/2024 9:21 AM EDT ----- Its under the 2/ phone note. ----- Message ----- From: Pradeep Angel LPN Sent: 12/07/2024 8:43 AM EDT To: Viola Phelps APRN.[employer] ----- Message from Pradeep Angel LPN sent at 12/07/2024 8:43 AM EDT ----- There isn't a result note to view. Just a note that says to see Phone Note. documented in this encounter [facility] 12-02-2024 Telephone encounter Note [facility] received message from patient regarding home delivered meal options that offer vegetarian menu. Sw will reach out to patient tomorrow to discuss home delivered meal plan options [facility] 12-02-2024 Miscellaneous Notes [facility] received message from patient regarding home delivered meal options that offer vegetarian menu. Sw will reach out to patient tomorrow to discuss home delivered meal plan options See [facility] 11/30 note. M[facility] has mailed out [employer] Old[employer] Adult Resource Guide along with home care provider agency options in [place]. documented in this encounter [facility] 12-02-2024 Telephone encounter Note See [facility] 11/30 note. [facility] has mailed out [employer] Old[employer] Adult Resource Guide along with home care provider agency options in [place]. [facility] 12-02-2024 Viola Lawrence APRN.JEZ - 12/02/2024 2:28 PM EDT Do the stool kit. Work on adding calories to diet and high-calorie drinks. Recheck in a month. documented in this encounter [facility] 12-02-2024 Note HNO ID: [id number] Author: VIOLA PHELPS APRN.JEZ Service: ? Author Type: Nurse Practitioner Type: Progress Notes Filed: 12/03/2024 14:32 Note Text: This is a 79 year old male who presents today with: Patient presents with: Recheck: 1 month follow up HISTORY OF PRESENT ILLNESS: Nava Healy is a 79 year old male. Patient presents with: Recheck: 1 month follow up Pt presents today for 1 month recheck. Weight loss: Weight down a pound since last visit. He does follow a vegetarian diet. Refers that he doesn't tend to eat well; as he really doesn't prepare food. He would be interested in a meal-service, but realizes it may be difficult d/t dietary restrictions. He does report that he needs to be more diligent and may even add in some supplement/calorie drinks. Pain: Tried the duloxetine for a couple of days. Didn't feel that it helped the pain. Salix that it caused him to be off balance and flushing. Would like to hold of on it. He would like to try it again and see if he continues to get side effects. Never started the robinul for the increase salivation. Doesn't think he needs right now. He will continue to monitor. PAST MEDICAL HISTORY: PAST MEDICAL HISTORY Diagnosis Date Hypothyroidism (acquired) age 68 PAST SURGICAL HISTORY Procedure Laterality Date TONSILLECTOMY AND ADENOIDECTOMY HX ALLERGIES Banana MEDICATIONS Current Outpatient Medications Medication Sig glycopyrrolate (ROBINUL) 1 mg tablet Take 1 tablet by mouth two times a day. As needed for salivation DULoxetine (CYMBALTA) 20 mg capsule Take 1 capsule by mouth once daily. levothyroxine (SYNTHROID) 50 mcg tablet take 1 tablet by mouth every morning ON AN EMPTY STOMACH FOR THYROID melatonin 1 mg chew Take by mouth. Vsqdhup-Apghjsnuvklkr-Ytgsgbjr (EXCEDRIN) 250-250-65 mg per tablet Take 1 tablet by mouth every 6 hours as needed. vitamin B complex (B COMPLEX ORAL) Take by mouth. No current facility-administered medications for this visit. FAMILY HISTORY Problem Relation Age of Onset Cancer Mother ? uterine Alcohol/Drug Father esophageal varices Alzheimer's Disease Maternal Grandmother Social History Tobacco Use Smoking status: Former Smokeless tobacco: Never Tobacco comments: 1PPD x 8-10 years Vaping Use Vaping status: Never Used Substance Use Topics Alcohol use: No Comment: drank some in the past Drug use: Not Currently Types: Marijuana Comment: remote marijuana EXAM: BP 145/76 Pulse 67 Resp 16 Wt 54.9 kg (121 lb) SpO2 98% BMI 16.41 kg/m? PHYSICAL EXAM: General Appearance: Well appearing, alert, in no acute distress, well-hydrated, well nourished.. Skin: Skin color, texture, turgor normal, no suspicious rashes or lesions. Head: Normocephalic, no masses, lesions, tenderness or abnormalities. Eyes: Anicteric sclera. Extraocular movements are intact. . Back:+ scoliosis. Lungs: Lungs clear to auscultation. No wheezing, rhonchi, rales.. Heart: RRR without murmur, gallop, or rubs. No ectopy. Extremities: No deformities, edema, skin discoloration, clubbing or cyanosis. Good capillary refill. . Neurologic: Gait slow, but steady for at least short distances. + tremors. ASSESSMENT/PLAN: 1. Weight loss - ICD9: 783.21, ICD10: R63.4 (primary diagnosis) Lost one pound in the last month. Admits that he didn't work on increasing diet. He will try to work on diet and add supplement if needed. Social service referral placed to see if any community resources that may be able to accommodate vegetarian diet. Is agreeable to ifob d/t weight loss. - IMMUNOCHEMICAL FECAL OCCULT BLOOD TEST - CORN GRINDER [CONSULT TO SOCIAL WORK] Recheck weight in 1 month. 2. Other chronic pain - ICD9: 338.29, ICD10: G89.29 He has the duloxetine. He is considering to restart this to see if he continues to get side effects. 3. Drooling - ICD9: 527.7, ICD10: K11.7 Currently improved. Discussed treatment plan and patient voices understanding. Patient's questions answered appropriately. Medications and potential side effects were discussed and patient voices understanding. Return to the office as scheduled or as needed for worsening/no improvement. Viola Phelps APRN.JEZ [facility] 12-02-2024 History of Present illness Narrative This is a 79 year old male who presents today with: Patient presents with: Recheck: 1 month follow up HISTORY OF PRESENT ILLNESS: Nava Healy is a 79 year old male. Patient presents with: Recheck: 1 month follow up Pt presents today for 1 month recheck. Weight loss: Weight down a pound since last visit. He does follow a vegetarian diet. Refers that he doesn't tend to eat well; as he really doesn't prepare food. He would be interested in a meal-service, but realizes it may be difficult d/t dietary restrictions. He does report that he needs to be more diligent and may even add in some supplement/calorie drinks. Pain: Tried the duloxetine for a couple of days. Didn't feel that it helped the pain. Salix that it caused him to be off balance and flushing. Would like to hold of on it. He would like to try it again and see if he continues to get side effects. Never started the robinul for the increase salivation. Doesn't think he needs right now. He will continue to monitor. PAST MEDICAL HISTORY: PAST MEDICAL HISTORY Diagnosis Date Hypothyroidism (acquired) age 68 PAST SURGICAL HISTORY Procedure Laterality Date TONSILLECTOMY AND ADENOIDECTOMY HX ALLERGIES Banana MEDICATIONS Current Outpatient Medications Medication Sig glycopyrrolate (ROBINUL) 1 mg tablet Take 1 tablet by mouth two times a day. As needed for salivation DULoxetine (CYMBALTA) 20 mg capsule Take 1 capsule by mouth once daily. levothyroxine (SYNTHROID) 50 mcg tablet take 1 tablet by mouth every morning ON AN EMPTY STOMACH FOR THYROID melatonin 1 mg chew Take by mouth. Nikgzfo-Gsszfopdpsogz-Bxipizgx (EXCEDRIN) 250-250-65 mg per tablet Take 1 tablet by mouth every 6 hours as needed. vitamin B complex (B COMPLEX ORAL) Take by mouth. No current facility-administered medications for this visit. FAMILY HISTORY Problem Relation Age of Onset Cancer Mother ? uterine Alcohol/Drug Father esophageal varices Alzheimer's Disease Maternal Grandmother Social History Tobacco Use Smoking status: Former Smokeless tobacco: Never Tobacco comments: 1PPD x 8-10 years Vaping Use Vaping status: Never Used Substance Use Topics Alcohol use: No Comment: drank some in the past Drug use: Not Currently Types: Marijuana Comment: remote marijuana EXAM: BP 145/76 Pulse 67 Resp 16 Wt 54.9 kg (121 lb) SpO2 98% BMI 16.41 kg/m PHYSICAL EXAM: General Appearance: Well appearing, alert, in no acute distress, well-hydrated, well nourished.. Skin: Skin color, texture, turgor normal, no suspicious rashes or lesions. Head: Normocephalic, no masses, lesions, tenderness or abnormalities. Eyes: Anicteric sclera. Extraocular movements are intact. . Back:+ scoliosis. Lungs: Lungs clear to auscultation. No wheezing, rhonchi, rales.. Heart: RRR without murmur, gallop, or rubs. No ectopy. Extremities: No deformities, edema, skin discoloration, clubbing or cyanosis. Good capillary refill. . Neurologic: Gait slow, but steady for at least short distances. + tremors. ASSESSMENT/PLAN: 1. Weight loss - ICD9: 783.21, ICD10: R63.4 (primary diagnosis) Lost one pound in the last month. Admits that he didn't work on increasing diet. He will try to work on diet and add supplement if needed. Social service referral placed to see if any community resources that may be able to accommodate vegetarian diet. Is agreeable to ifob d/t weight loss. - IMMUNOCHEMICAL FECAL OCCULT BLOOD TEST - CORN GRINDER [CONSULT TO SOCIAL WORK] Recheck weight in 1 month. 2. Other chronic pain - ICD9: 338.29, ICD10: G89.29 He has the duloxetine. He is considering to restart this to see if he continues to get side effects. 3. Drooling - ICD9: 527.7, ICD10: K11.7 Currently improved. Discussed treatment plan and patient voices understanding. Patient's questions answered appropriately. Medications and potential side effects were discussed and patient voices understanding. Return to the office as scheduled or as needed for worsening/no improvement. Viola Phelps APRN.[employer] documented in this encounter [facility] 11-30-2024 Telephone encounter Note Noted. Detailed message left on pt's identified VM of message below. Pattie Balderrama RN [facility] 11-30-2024 Miscellaneous Notes Noted. Detailed message left on pt's identified VM of message below. Pattie Balderrama RN It was actually a weight check to ensure that his weight was stable. He already had the thyroid levels checked. I'm also interested in how he is doing on the new medication (glycopyrrolate). Viola Phelps APRN.CNP Patient has 1 month F/U appt scheduled for this Saturday 12/02 with Viola Phelps CNP Please calling to ask if he needs to come to this appt, as last OV note on 10/28/24 states pt was to recheck thyroid levels in [address] repeat thyroid lab orders. Please call patient with update. Pattie Balderrama RN documented in this encounter [facility] 11-30-2024 Telephone encounter Note It was actually a weight check to ensure that his weight was stable. He already had the thyroid levels checked. I'm also interested in how he is doing on the new medication (glycopyrrolate). Viola hPelps APRN.CNP [facility] 11-30-2024 Telephone encounter Note Patient called Sw and would like this Sw to mail him [facility], [facility], [facility] resources. Sw will compile home care and AL information and mail out to patient home. [facility] 11-30-2024 Miscellaneous Notes Patient called Sw and would like this Sw to mail him [facility], [facility], [facility] resources. Sw will compile home care and AL information and mail out to patient home. documented in this encounter [facility] 11-30-2024 Telephone encounter Note Patient has 1 month F/U appt scheduled for this Saturday 12/02 with Viola Phelps CNP Please calling to ask if he needs to come to this appt, as last OV note on 10/28/24 states pt was to recheck thyroid levels in [address] repeat thyroid lab orders. Please call patient with update. Pattie Balderrama RN [facility] 11-06-2024 Telephone encounter Note Sw left message for patient to return call to discuss home care provider agency options in [place]. [facility] 11-06-2024 Miscellaneous Notes Sw left message for patient to return Sw call to discuss home care provider agency options in [place]. Sw left message for patient to return call to discuss home care vs. Assisted living options in the area. Sw called patient to discuss home care vs. senior living care options. Sw will also discuss [facility] and [facility] as possible referrals to assist with information regarding home care provider, AL options in the community. No answer and vmail is full. Will try call again later. documented in this encounter [facility] 10-30-2024 Telephone encounter Note Pt notified. He verbalized understanding. Pradeep Angel LPN [facility] 10-30-2024 Miscellaneous Notes Pt notified. He verbalized understanding. Pradeep Angel LPN Can please let patient know that I received his lab results. Overall, everything looked okay, except his vitamin D was just minimally low. I think we discussed doing a vitamin D gummy. We can try some glycopyrrolate for the salivation. Any medication can have side effects, however this one is less than others. (Generally the side effects we hear are dry mouth, constipation, etc. So please watch out for these). I went ahead and sent this to the pharmacy. It is one pill twice daily as needed. Viola Phelps APRN.JEZ Patient calls to say he forgot to mention at appointment about his slobbering and he spoke to someone at the pharmacy to discuss medication for slobber mouth and was told that he would need a prescription. Reviewed OV notes with patient: Refers that he is producing more saliva. Labs are pending. Notified patient that we would contact him with provider response about medication and labs once labs were completed and reviewed. Patient wants medication that won't cause him any problems but eliminate the excessive slobbering. Mel Garrett, RN documented in this encounter [facility] 10-30-2024 Telephone encounter Note Can please let patient know that I received his lab results. Overall, everything looked okay, except his vitamin D was just minimally low. I think we discussed doing a vitamin D gummy. We can try some glycopyrrolate for the salivation. Any medication can have side effects, however this one is less than others. (Generally the side effects we hear are dry mouth, constipation, etc. So please watch out for these). I went ahead and sent this to the pharmacy. It is one pill twice daily as needed. Viola Phelps APRN.JEZ [facility] 10-30-2024 Telephone encounter Note Sw left message for patient to return Sw call to discuss home care vs. Assisted living options in the area. [facility] 10-29-2024 Telephone encounter Note Sw called patient to discuss home care vs. termite helper care options. Sw will also discuss [facility] and [facility] as possible referrals to assist with information regarding home care provider, AL options in the community. No answer and vmail is full. Will try call again later. [facility] 10-28-2024 Telephone encounter Note Patient calls to say he forgot to mention at appointment about his slobbering and he spoke to someone at the pharmacy to discuss medication for slobber mouth and was told that he would need a prescription. Reviewed OV notes with patient: Refers that he is producing more saliva. Labs are pending. Notified patient that we would contact him with provider response about medication and labs once labs were completed and reviewed. Patient wants medication that won't cause him any problems but eliminate the excessive slobbering. Mel Garrett RN [facility] 10-28-2024 Instructions Viola Phelps APRN.JEZ - 10/28/2024 3:05 PM EST Get the labwork. Start the cymbalta. Recheck in 1 month. documented in this encounter [facility] 10-28-2024 Note HNO ID: [id number] Author: VIOLA PHELPS APRN.JEZ Service: ? Author Type: Nurse Practitioner Type: Progress Notes Filed: 10/28/2024 17:33 Note Text: This is a 79 year old male who presents today with: Patient presents with: Recheck: 3 month follow up HISTORY OF PRESENT ILLNESS: Nava Healy is a 79 year old male. Patient presents with: Recheck: 3 month follow up Pt presents today for 3 month follow-up. Refers that he is producing more saliva. Bothersome to patient. Suspect related to parkinson's symptoms. Back pain. 12 steroid injection. Massage therapy. PT. Nothing helpful. Discussed spine before, but doesn't want surgery. Followed w/ pain management in the past. Gets pain in the back and legs. He now only has 5 cats. Has lost appx 8 pounds. He reports that he is eating regularly. Some constipation managed with OTC medication and fiber. No hematochezia/melena. Denies CP/SOB. PAST MEDICAL HISTORY: PAST MEDICAL HISTORY Diagnosis Date Hypothyroidism (acquired) age 68 PAST SURGICAL HISTORY Procedure Laterality Date TONSILLECTOMY AND ADENOIDECTOMY HX ALLERGIES Banana MEDICATIONS Current Outpatient Medications Medication Sig levothyroxine (SYNTHROID) 50 mcg tablet take 1 tablet by mouth every morning ON AN EMPTY STOMACH FOR THYROID melatonin 1 mg chew Take by mouth. Uevcsaa-Xpobeqhpsuldi-Creefaai (EXCEDRIN) 250-250-65 mg per tablet Take 1 tablet by mouth every 6 hours as needed. vitamin B complex (B COMPLEX ORAL) Take by mouth. No current facility-administered medications for this visit. FAMILY HISTORY Problem Relation Age of Onset Cancer Mother ? uterine Alcohol/Drug Father esophageal varices Alzheimer's Disease Maternal Grandmother Social History Tobacco Use Smoking status: Former Smokeless tobacco: Never Tobacco comments: 1PPD x 8-10 years Vaping Use Vaping status: Never Used Substance Use Topics Alcohol use: No Comment: drank some in the past Drug use: Not Currently Types: Marijuana Comment: remote marijuana EXAM: BP 118/72 Pulse (!) 55 Resp 16 SpO2 97% PHYSICAL EXAM: General Appearance: Well appearing, alert, in no acute distress, well-hydrated, well nourished.. Skin: Skin color, texture, turgor normal, no suspicious rashes or lesions. Head: Normocephalic, no masses, lesions, tenderness or abnormalities. Eyes: Anicteric sclera. Extraocular movements are intact. . Lungs: Lungs clear to auscultation. No wheezing, rhonchi, rales.. Heart: RRR without murmur, gallop, or rubs. No ectopy. Extremities: No deformities, edema, skin discoloration, clubbing or cyanosis. Good capillary refill. . Musculoskeletal: + muscle weakness of the LE -- R>L. Neurologic: answers questions appropriately. ASSESSMENT/PLAN: 1. Acquired hypothyroidism - ICD9: 244.9, ICD10: E03.9 (primary diagnosis) Due for labs today. - THYROID STIMULATING HORMONE - T4 FREE/FREE THYROXINE 2. Vitamin D deficiency - ICD9: 268.9, ICD10: E55.9 Recheck. - VITAMIN D 25 HYDROXY 3. Generalized weakness - ICD9: 780.79, ICD10: R53.1 Recheck. - COMPLETE BLOOD COUNT AND DIFFERENTIAL - COMPREHENSIVE METABOLIC PANEL 4. Other chronic pain - ICD9: 338.29, ICD10: G89.29 Discussed options. Agreeable to trial of duloxetine to see if helps chronic pain. - DULOXETINE 20 MG CAPSULE,DELAYED RELEASE 5. Parkinson's disease with dyskinesia and fluctuating manifestations (HCC) - ICD9: 332.0, ICD10: G20.B2 Continue per neuro. 6. Weight loss - ICD9: 783.21, ICD10: R63.4 Recheck in 1 month. Check thyroid levels. Discussed treatment plan and patient voices understanding. Patient's questions answered appropriately. Medications and potential side effects were discussed and patient voices understanding. Return to the office as scheduled or as needed for worsening/no improvement. Viola Phelps APRN.JEZ [facility] 10-28-2024 History of Present illness Narrative This is a 79 year old male who presents today with: Patient presents with: Recheck: 3 month follow up HISTORY OF PRESENT ILLNESS: Nava Healy is a 79 year old male. Patient presents with: Recheck: 3 month follow up Pt presents today for 3 month follow-up. Refers that he is producing more saliva. Bothersome to patient. Suspect related to parkinson's symptoms. Back pain. 12 steroid injection. Massage therapy. PT. Nothing helpful. Discussed spine before, but doesn't want surgery. Followed w/ pain management in the past. Gets pain in the back and legs. He now only has 5 cats. Has lost appx 8 pounds. He reports that he is eating regularly. Some constipation managed with OTC medication and fiber. No hematochezia/melena. Denies CP/SOB. PAST MEDICAL HISTORY: PAST MEDICAL HISTORY Diagnosis Date Hypothyroidism (acquired) age 68 PAST SURGICAL HISTORY Procedure Laterality Date TONSILLECTOMY AND ADENOIDECTOMY HX ALLERGIES Banana MEDICATIONS Current Outpatient Medications Medication Sig levothyroxine (SYNTHROID) 50 mcg tablet take 1 tablet by mouth every morning ON AN EMPTY STOMACH FOR THYROID melatonin 1 mg chew Take by mouth. Tqjvpgm-Okdrklrxaaukb-Hikluilt (EXCEDRIN) 250-250-65 mg per tablet Take 1 tablet by mouth every 6 hours as needed. vitamin B complex (B COMPLEX ORAL) Take by mouth. No current facility-administered medications for this visit. FAMILY HISTORY Problem Relation Age of Onset Cancer Mother ? uterine Alcohol/Drug Father esophageal varices Alzheimer's Disease Maternal Grandmother Social History Tobacco Use Smoking status: Former Smokeless tobacco: Never Tobacco comments: 1PPD x 8-10 years Vaping Use Vaping status: Never Used Substance Use Topics Alcohol use: No Comment: drank some in the past Drug use: Not Currently Types: Marijuana Comment: remote marijuana EXAM: BP 118/72 Pulse (!) 55 Resp 16 SpO2 97% PHYSICAL EXAM: General Appearance: Well appearing, alert, in no acute distress, well-hydrated, well nourished.. Skin: Skin color, texture, turgor normal, no suspicious rashes or lesions. Head: Normocephalic, no masses, lesions, tenderness or abnormalities. Eyes: Anicteric sclera. Extraocular movements are intact. . Lungs: Lungs clear to auscultation. No wheezing, rhonchi, rales.. Heart: RRR without murmur, gallop, or rubs. No ectopy. Extremities: No deformities, edema, skin discoloration, clubbing or cyanosis. Good capillary refill. . Musculoskeletal: + muscle weakness of the LE -- R>L. Neurologic: answers questions appropriately. ASSESSMENT/PLAN: 1. Acquired hypothyroidism - ICD9: 244.9, ICD10: E03.9 (primary diagnosis) Due for labs today. - THYROID STIMULATING HORMONE - T4 FREE/FREE THYROXINE 2. Vitamin D deficiency - ICD9: 268.9, ICD10: E55.9 Recheck. - VITAMIN D 25 HYDROXY 3. Generalized weakness - ICD9: 780.79, ICD10: R53.1 Recheck. - COMPLETE BLOOD COUNT AND DIFFERENTIAL - COMPREHENSIVE METABOLIC PANEL 4. Other chronic pain - ICD9: 338.29, ICD10: G89.29 Discussed options. Agreeable to trial of duloxetine to see if helps chronic pain. - DULOXETINE 20 MG CAPSULE,DELAYED RELEASE 5. Parkinson's disease with dyskinesia and fluctuating manifestations (HCC) - ICD9: 332.0, ICD10: G20.B2 Continue per neuro. 6. Weight loss - ICD9: 783.21, ICD10: R63.4 Recheck in 1 month. Check thyroid levels. Discussed treatment plan and patient voices understanding. Patient's questions answered appropriately. Medications and potential side effects were discussed and patient voices understanding. Return to the office as scheduled or as needed for worsening/no improvement. Viola Phelps APRN.[employer] documented in this encounter [facility] 10-27-2024 Instructions Kirstin Aldridge PA-C - 10/27/2024 4:17 PM EST Follow up with spine for back pain Concerned about your weight loss, would recommend increasing your caloric intact with boost shakes or other high calorie drinks Rejoin your exercise group/program Will write for a walker to get around at home. Social work consult Follow up with Dr. Vargas in 3-4 months documented in this encounter [facility] 10-27-2024 Note HNO ID: [id number] Author: KIRSTIN ALDRIDGE PA-C Service: ? Author Type: Physician Supervisor [employer] [employer] Type: Progress Notes Filed: 10/27/2024 16:51 Note Text: ESTABLISHED PATIENT VISIT Last visit: 10/01/23 ASSESSMENT/PLAN: 1. Unstable gait - ICD9: 781.2, ICD10: R26.81 (primary diagnosis) 2. Generalized weakness - ICD9: 780.79, ICD10: R53.1 3. Myalgias - ICD9: 729.1, ICD10: M79.10 4. Fasciculation - ICD9: 781.0, ICD10: R25.3 5. Lightheadedness - ICD9: 780.4, ICD10: R42 6. Lumbar pain - ICD9: 724.2, ICD10: M54.50 7. Parkinsonian features - ICD9: 781.0, ICD10: R29.818 Patient presents for follow-up for persistent weakness, lower extremity pain, gait change. Patient's primary concern today is the pain he experiences from his back bilaterally around his thighs and into his calfs. Notes extreme sensitivity to light touch and has pain even with wearing pants. Patient also with shuffling gait and signs and symptoms of Parkinson's. Did try Sinemet for 2 days, but states he had significant diarrhea so he stopped this. However, continues to have diarrhea at this time. At last appointment, it was discussed that ordering an EMG would be the next step should patient not tolerate medications or medications not be helpful. However, patient deferring an EMG due to the discomfort of the exam. States he prefer just trying different medications to target his pain and discomfort. Did discuss that there are alternative medications for Parkinson's and patient primarily just wants to address his pain. Suggests a orthopedic brace to wear around his abdomen and back to support his back as he feels this is the source of his discomfort. Does follow with pain management, has tried injections in the past without any significant benefit. Has been through physical therapy, last of which was about 6 months ago. 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 No falls since last appointment. No new concerns since last appointment. Will reach out to collaborating physician about alternative treatments and workup for patient's symptoms. Emphasized the diagnostic advantage of an EMG, states that he will think about it having this completed. EMG of upper and lower extremity ordered. Discussed other conservative therapies that may beneficial including core strengthening, increasing exercise, increasing water intake, optimizing sleep. Patient agrees and understands. Patient agreeable to treatment plan of care at this time, questions were answered. Patient to follow-up with Dr. Vargas in 3 to 4 months or sooner should any symptoms change or worsen. Kirstin Aldridge PA-C CHIEF COMPLAINT: follow up HISTORY OF PRESENT ILLNESS: Nava Healy is a 79 year old male, There were no vitals taken for this visit. with a PMH significant for hypothyroidism, DDD lumbar, PD . Last seen 10/01/23 for back pain, unstable gait, PD. GI side effects with sinemet so stoped this, primary concern is low back pain. Haivng episodes of LH but no syncope. Encouraged fu with pain management. Ordered EMG. Saw PCP on 07/28/24 and put in referral for social work. Sent to spine for lumbar spine, gait change.Asked about gene therapy and research has reached out to pt. Patient presents for follow-up today. Notes primary concern is still a lot of back pain and discomfort in his legs. Was referred to the spinal department but has yet to schedule. Is not sure what they can do for him as he has had injections in the past without any improvement. Notes he is a lot of weakness in his legs, has had about 3 falls in the last year all of which were mechanical and attributes them to his lower legs, whether it is initiation of movement or overall weakness in the legs. States that he plans to start exercising again but is not very active at home right now. Also notes he has some issues with appetite, has some appetite loss and weight loss recently. Last fall was 4 months ago, in the kitchen he was putting something on the counter and just fell, unsure why he exactly fell. Denies any syncope notes improvement in his lightheadedness. No new symptoms today. REVIEW OF SYSTEMS GENERAL:No weight loss, malaise or fevers. HEENT:Negative for frequent or significant headaches, No changes in hearing or vision, no nose bleeds or other nasal problems NECK:Negative for lumps, goiter, pain and significant neck swelling RESPIRATORY: Negative for cough, wheezing or shortness of breath. CARDIOVASCULAR: Negative for chest pain, leg swelling or palpitations. GASTROINTESTINAL: Negative for abdominal discomfort, blood in stools or black stools or change in bowel habits GENITOURINARY: No history of dysuria, frequency or incontinence MUSCULOSKELETAL: Negative for joint pain or swelling, back pain or muscle pain. NEUROLOGIC:Negative for focal numbness or weakness, headaches and dizziness or syncope, vision changes (more content not included)... [facility] 10-27-2024 History of Present illness Narrative ESTABLISHED PATIENT VISIT Last visit: 10/01/23 ASSESSMENT/PLAN: 1. Unstable gait - ICD9: 781.2, ICD10: R26.81 (primary diagnosis) 2. Generalized weakness - ICD9: 780.79, ICD10: R53.1 3. Myalgias - ICD9: 729.1, ICD10: M79.10 4. Fasciculation - ICD9: 781.0, ICD10: R25.3 5. Lightheadedness - ICD9: 780.4, ICD10: R42 6. Lumbar pain - ICD9: 724.2, ICD10: M54.50 7. Parkinsonian features - ICD9: 781.0, ICD10: R29.818 Patient presents for follow-up for persistent weakness, lower extremity pain, gait change. Patient's primary concern today is the pain he experiences from his back bilaterally around his thighs and into his calfs. Notes extreme sensitivity to light touch and has pain even with wearing pants. Patient also with shuffling gait and signs and symptoms of Parkinson's. Did try Sinemet for 2 days, but states he had significant diarrhea so he stopped this. However, continues to have diarrhea at this time. At last appointment, it was discussed that ordering an EMG would be the next step should patient not tolerate medications or medications not be helpful. However, patient deferring an EMG due to the discomfort of the exam. States he prefer just trying different medications to target his pain and discomfort. Did discuss that there are alternative medications for Parkinson's and patient primarily just wants to address his pain. Suggests a orthopedic brace to wear around his abdomen and back to support his back as he feels this is the source of his discomfort. Does follow with pain management, has tried injections in the past without any significant benefit. Has been through physical therapy, last of which was about 6 months ago. 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 No falls since last appointment. No new concerns since last appointment. Will reach out to collaborating physician about alternative treatments and workup for patient's symptoms. Emphasized the diagnostic advantage of an EMG, states that he will think about it having this completed. EMG of upper and lower extremity ordered. Discussed other conservative therapies that may beneficial including core strengthening, increasing exercise, increasing water intake, optimizing sleep. Patient agrees and understands. Patient agreeable to treatment plan of care at this time, questions were answered. Patient to follow-up with Dr. Vargas in 3 to 4 months or sooner should any symptoms change or worsen. Kirstin Aldridge PA-C CHIEF COMPLAINT: follow up HISTORY OF PRESENT ILLNESS: Nava Healy is a 79 year old male, There were no vitals taken for this visit. with a PMH significant for hypothyroidism, DDD lumbar, PD . Last seen 10/01/23 for back pain, unstable gait, PD. GI side effects with sinemet so stoped this, primary concern is low back pain. Haivng episodes of LH but no syncope. Encouraged fu with pain management. Ordered EMG. Saw PCP on 07/28/24 and put in referral for social work. Sent to spine for lumbar spine, gait change.Asked about gene therapy and research has reached out to pt. Patient presents for follow-up today. Notes primary concern is still a lot of back pain and discomfort in his legs. Was referred to the spinal department but has yet to schedule. Is not sure what they can do for him as he has had injections in the past without any improvement. Notes he is a lot of weakness in his legs, has had about 3 falls in the last year all of which were mechanical and attributes them to his lower legs, whether it is initiation of movement or overall weakness in the legs. States that he plans to start exercising again but is not very active at home right now. Also notes he has some issues with appetite, has some appetite loss and weight loss recently. Last fall was 4 months ago, in the kitchen he was putting something on the counter and just fell, unsure why he exactly fell. Denies any syncope notes improvement in his lightheadedness. No new symptoms today. REVIEW OF SYSTEMS GENERAL:No weight loss, malaise or fevers. HEENT:Negative for frequent or significant headaches, No changes in hearing or vision, no nose bleeds or other nasal problems NECK:Negative for lumps, goiter, pain and significant neck swelling RESPIRATORY: Negative for cough, wheezing or shortness of breath. CARDIOVASCULAR: Negative for chest pain, leg swelling or palpitations. GASTROINTESTINAL: Negative for abdominal discomfort, blood in stools or black stools or change in bowel habits GENITOURINARY: No history of dysuria, frequency or incontinence MUSCULOSKELETAL: Negative for joint pain or swelling, back pain or muscle pain. NEUROLOGIC:Negative for focal numbness or weakness, headaches and dizziness or syncope, vision changes, speech/languag changes - EXCEPT that as per HPI above. SKIN:Negative for lesions, rash, and itching. PSYCHIATRIC: Negative for sleep disturbance, mood disorder and recent psychosocial stressors. HEMATOLOGIC/LYMPHATIC/IMMUNOLOGIC :Negative for prolonged bleeding, bruising easily or swollen nodes. ENDOCRINE: Negative for cold or heat intolerance, polyuria, polydipsia and goiter. The remainder of the ROS was reviewed and is negative. LAB/IMAGING: Those performed since patient's last visit have been reviewed. MEDICATIONS: levothyroxine (SYNTHROID) 50 mcg tablet take 1 tablet by mouth every morning ON AN EMPTY STOMACH FOR THYROID melatonin 1 mg chew Take by mouth. Qsolplg-Ntbcewtnasrls-Wswztkpa (EXCEDRIN) 250-250-65 mg per tablet Take 1 tablet by mouth every 6 hours as needed. vitamin B complex (B COMPLEX ORAL) Take by mouth. HISTORIES PAST MEDICAL HISTORY Diagnosis Date Hypothyroidism (acquired) age 68 FAMILY HISTORY Problem Relation Age of Onset Cancer Mother ? uterine Alcohol/Drug Father esophageal varices Alzheimer's Disease Maternal Grandmother SOCIAL HISTORY Social History Tobacco Use Smoking status: Former Smokeless tobacco: Never Tobacco comments: 1PPD x 8-10 years Vaping Use Vaping status: Never Used Substance Use Topics Alcohol use: No Comment: drank some in the past Drug use: Not Currently Types: Marijuana Comment: remote marijuana PHYSICAL EXAMINATION BP 134/91 (BP Site: Left Arm, BP Position: Sitting) Pulse 74 Wt 55.5 kg (122 lb 6.4 oz) SpO2 98% BMI 16.60 kg/m GENERAL EXAM: General appearance: NAD, pleasant. HEENT: NC/AT, nasal congestion absent, no oral lesions, membranes moist. NECK: No masses, supple. Lungs: Breathing comfortably Extr: Moves all extremities without difficulty Skin: Cool to touch. No rash. NEUROLOGICAL EXAM: General: Awake, alert, oriented x3 (person,place,time), speech fluent, no dysarthria; comprehension, naming, repetition intact. Masked facies, voice is raspy and quiet CN: PERRL, EOMI and without nystagmus, VFF to confrontation, facial sensation and strength are normal and symmetric, hearing is intact to finger rub bilaterally, palate and tongue movements are intact and symmetric. SCM and trapezius strength normal. Motor: Increased tone in the upper extremities, worse on the right. Poor strength in the lower extremities at 4/5 throughout. Reflexes: Diminished reflexes in the lower extremities, 2/4 in the upper extremities. Sensation: No evidence of neglect. Gait: Significantly shuffled gait, using a golf club as a cane Assessment and Plan: ASSESSMENT/PLAN: 1. Parkinson's disease without dyskinesia, unspecified whether manifestations fluctuate (HCC) - ICD9: 332.0, ICD10: G20.A1 (primary diagnosis) 2. Unstable gait - ICD9: 781.2, ICD10: R26.81 3. Generalized weakness - ICD9: 780.79, ICD10: R53.1 4. Myalgias - ICD9: 729.1, ICD10: M79.10 5. Lightheadedness - ICD9: 780.4, ICD10: R42 6. Lumbar pain - ICD9: 724.2, ICD10: M54.50 7. Parkinsonian features - ICD9: 781.0, ICD10: R29.818 Patient with Parkinson's disease, did not tolerate Sinemet in the past and deferring any future medications. Has tried physical therapy but does not like to continue this, does not feel is helpful for him. Has been a year since his last appointment, has had about 3-4 fall since that time, describing mechanical falls in nature. No syncope or significant lightheadedness. Did have some weight loss since last appointment with 8 pounds, notes some issues with appetite as well. Does live alone in a two-story house and has to go up and down the stairs multiple times a day. Previously was taking care of 25+ cats but notes he is only taking care of 5 right now. Was having a lot of issues taking care of all these cats but notes this is improved since rehoming many of them. Overall worsening in symptoms since last appointment states he is not very physically active. Primary concern today is frequent falls, weight loss and progressive weakness of the lower extremities. Was referred to spine due to lumbar degenerative disease but patient states he is unsure what they can do for him because he is had injections in the past. Encouraged him to reach out to spine for further evaluation. Discussed the importance of movements, physical therapy and exercise in the treatment of both Parkinson's disease and maintaining strength in the lower extremities. Did appreciate some diffuse weakness in the lower extremities. Discussed at length this could be contributing to falls and coordination with Parkinson's disease as well. Is not using a golf club as a cane to get around, discussed my concern with this and falling, discussed using a U step walker and this was sent but patient states he is unsure if he will ever use it. Encouraged increased caloric intake as well at home and increased physical activity. States he has a exercise regimen and is going to restart this. Also states he is going to reach out to the local Parkinson's foundation and see what resources they have available. Social work consult was placed by primary care and feel this is very appropriate, will reach out to social work myself due to my concerns of patient living alone with frequent falls, progressive weakness, and weight loss. Of note, patient's voice has worsened and did discuss speech therapy but patient deferring at this time. EMG was offered as well for further evaluation of the weakness in his legs but patient deferring. Patient agreeable to treatment plan of care at this time, questions were answered. Patient to follow-up in 3 to [address] Vargas. Kirstin Aldridge PA-C I spent a total of 45 minutes on the date of the service which included preparing to see the patient, [id number] patient care, completing clinical documentation, obtaining and/or reviewing separately obtained history, performing a medically appropriate examination, counseling and educating the patient/family/caregiver, and ordering medications, tests, or procedures. This document has been created with the use of voice recognition technology. It may contain inaccuracies: (e.g. misspellings, inaccurate syntax or word sense) that have escaped review. documented in this encounter [facility] 10-14-2024 Telephone encounter Note Prescription Refill Information The patient has been identified by name and date of : Yes Caregiver verified no other encounters exist for this prescription request: Yes Caregiver confirmed with patient/requestor that no other refills are due, in the near future, with this provider at this time: Yes The last office visit in the department: 07/28/2025 Does the patient have a future office visit with this provider/department: Yes Requested Prescriptions Pending Prescriptions Disp Refills levothyroxine (SYNTHROID) 50 mcg tablet 90 tablet 1 Sig: take 1 tablet by mouth every morning ON AN EMPTY STOMACH FOR THYROID Jessica Martinez [facility] October 14, 2024 11:12 AM [facility] 10-14-2024 Miscellaneous Notes Prescription Refill Information The patient has been identified by name and date of : Yes Caregiver verified no other encounters exist for this prescription request: Yes Caregiver confirmed with patient/requestor that no other refills are due, in the near future, with this provider at this time: Yes The last office visit in the department: 07/28/2025 Does the patient have a future office visit with this provider/department: Yes Requested Prescriptions Pending Prescriptions Disp Refills levothyroxine (SYNTHROID) 50 mcg tablet 90 tablet 1 Sig: take 1 tablet by mouth every morning ON AN EMPTY STOMACH FOR THYROID [facility] October 14, 2024 11:12 AM documented in this encounter [facility] 08-21-2024 Telephone encounter Note patient notified and verbalized understanding. PATIENT also reminded of upcoming appointments . Sudarshan Mena LPN [facility] 08-21-2024 Miscellaneous Notes patient notified and verbalized understanding. PATIENT also reminded of upcoming appointments . Sudarshan Mena LPN Left a message for pt to call the office and ask to speak to a nurse. Kerri Herman LPN Can please let patient know that I received his echo results. It does show a little bit of leakage in the mitral valve. As long as he is not having symptoms, we generally just recheck this in about 3 years to ensure that it is not worsening. Viola Phelps APRN.CNP documented in this encounter [facility] 08-19-2024 Telephone encounter Note Left a message for pt to call the office and ask to speak to a nurse. Kerri Herman LPN [facility] 08-18-2024 Telephone encounter Note Can please let patient know that I received his echo results. It does show a little bit of leakage in the mitral valve. As long as he is not having symptoms, we generally just recheck this in about 3 years to ensure that it is not worsening. Viola Phelps APRN.JEZ [facility] 07-31-2024 Telephone encounter Note Patient reports that his issue with transportation is when he has had to go to [place]. Patient notes I don't like riding that far to [place] and I want to have more of my visits done locally. Patient reports that he is looking for help around the home ie. Light housekeeping, meal prep, laundry, possibly personal care. Sw noted [facility] and [facility]. Patient also mentioned possibly looking at independent and assisted living options. Sw noted that [employer] is an agency that has been helpful to individuals looking at independent and assisted living options. [employer] also a good agency with resource options. Sw noted that she would work on compiling home care and [facility] resource guide and mail out to patient home. [facility] 07-31-2024 Miscellaneous Notes Patient reports that his issue with transportation is when he has had to go to [place]. Patient notes I don't like riding that far to [place] and I want to have more of my visits done locally. Patient reports that he is looking for help around the home ie. Light housekeeping, meal prep, laundry, possibly personal care. Sw noted [facility] and [facility]. Patient also mentioned possibly looking at independent and assisted living options. Sw noted that [employer] is an agency that has been helpful to individuals looking at independent and assisted living options. [employer] also a good agency with resource options. Sw noted that she would work on compiling home care and [facility] resource guide and mail out to patient home. Sw left patient message to have call returned in regards to transportation resource options in the community for medical and non medical appts. documented in this encounter [facility] 07-30-2024 Telephone encounter Note Sw left patient message to have call returned in regards to transportation resource options in the community for medical and non medical appts. [facility] 07-28-2024 Instructions Viola Phelps APRN.CNP - 07/28/2024 1:50 PM EST Reschedule the echocardiogram. Reschedule w/ neurology. You should be hearing from our social service agency director worker. Check with the [employer] re: insurance coverage for a home heart monitor. Recheck in 3 months. documented in this encounter [facility] 07-28-2024 Note HNO ID: [id number] Author: VIOLA PHELPS APRN.CNP Service: ? Author Type: Nurse Practitioner Type: Progress Notes Filed: 07/29/2024 23:13 Note Text: This is a 79 year old male who presents today with: Patient presents with: Recheck: 3 month follow up/ Transfer of care HISTORY OF PRESENT ILLNESS: Nava Healy is a 79 year old male. Patient presents with: Recheck: 3 month follow up/ Transfer of care Pt presents today for 3 month recheck. + parkinson's. Follows with neuro, but hasn't followed up. Does not wish to take medication d/t potential side effects. Loss of balance and dizziness. Trouble with falls. Did get a life alert d/t having some falls. Refers that he did participate in physical therapy about a year ago for gait training, which hasn't helped. Refers that he did see neurology and said they told him they couldn't help him if he didn't get EMG, which patient does not wish to do. Interested in some home services to help with household duties. Back pain. Recommended in the past to see spine surgery. He would like to proceed with that. Transportation can be an issue. He has seen pain management in the past and is not interested in this again. PAST MEDICAL HISTORY: PAST MEDICAL HISTORY Diagnosis Date Hypothyroidism (acquired) age 68 PAST SURGICAL HISTORY Procedure Laterality Date TONSILLECTOMY AND ADENOIDECTOMY HX ALLERGIES Banana MEDICATIONS Current Outpatient Medications Medication Sig levothyroxine (SYNTHROID) 50 mcg tablet take 1 tablet by mouth every morning ON AN EMPTY STOMACH FOR THYROID melatonin 1 mg chew Take by mouth. Qosajjp-Jmguguxhvncit-Zwdptfxj (EXCEDRIN) 250-250-65 mg per tablet Take 1 tablet by mouth every 6 hours as needed. vitamin B complex (B COMPLEX ORAL) Take by mouth. No current facility-administered medications for this visit. FAMILY HISTORY Problem Relation Age of Onset Cancer Mother ? uterine Alcohol/Drug Father esophageal varices Alzheimer's Disease Maternal Grandmother Social History Tobacco Use Smoking status: Former Smokeless tobacco: Never Tobacco comments: 1PPD x 8-10 years Vaping Use Vaping status: Never Used Substance Use Topics Alcohol use: No Comment: drank some in the past Drug use: Not Currently Types: Marijuana Comment: remote marijuana EXAM: BP 128/76 Pulse 84 Resp 16 SpO2 97% PHYSICAL EXAM: General Appearance: Well appearing, alert, in no acute distress, well-hydrated, well nourished.. Skin: Skin color, texture, turgor normal, no suspicious rashes or lesions. Head: Normocephalic, no masses, lesions, tenderness or abnormalities. Eyes: Anicteric sclera. Pupils are equally round and reactive to light. Extraocular movements are intact. . Lungs: Lungs clear to auscultation. No wheezing, rhonchi, rales.. Heart: RRR without murmur, gallop, or rubs. No ectopy. Neurologic: Gait normal. R ASSESSMENT/PLAN: 1. Parkinson's disease with dyskinesia and fluctuating manifestations (HCC) - ICD9: 332.0, ICD10: G20.B2 (primary diagnosis) Will place referral for possible assist with household. Encouraged to follow-up with neuro. - PRIMARY CARE SOCIAL WORK CONSULT 2. Lumbar foraminal stenosis - ICD9: 724.02, ICD10: M48.061 Declines return to pain management. Referral to spine. Declines PT, as didn't find helpful in the past. - CONSULT TO SPINE MEDICAL [facility] 3. Encounter for immunization - ICD9: V03.89, ICD10: Z23 - PFIZER-BIONTECH COVID-19 VACCINE AGE 12+ YR (COMIRNATY) Discussed treatment plan and patient voices understanding. Patient's questions answered appropriately. Medications and potential side effects were discussed and patient voices understanding. Return to the office as scheduled or as needed for worsening/no improvement. Viola Phelps APRN.[facility] 07-28-2024 History of Present illness Narrative This is a 79 year old male who presents today with: Patient presents with: Recheck: 3 month follow up/ Transfer of care HISTORY OF PRESENT ILLNESS: Nava Healy is a 79 year old male. Patient presents with: Recheck: 3 month follow up/ Transfer of care Pt presents today for 3 month recheck. + parkinson's. Follows with neuro, but hasn't followed up. Does not wish to take medication d/t potential side effects. Loss of balance and dizziness. Trouble with falls. Did get a life alert d/t having some falls. Refers that he did participate in physical therapy about a year ago for gait training, which hasn't helped. Refers that he did see neurology and said they told him they couldn't help him if he didn't get EMG, which patient does not wish to do. Interested in some home services to help with household duties. Back pain. Recommended in the past to see spine surgery. He would like to proceed with that. Transportation can be an issue. He has seen pain management in the past and is not interested in this again. PAST MEDICAL HISTORY: PAST MEDICAL HISTORY Diagnosis Date Hypothyroidism (acquired) age 68 PAST SURGICAL HISTORY Procedure Laterality Date TONSILLECTOMY AND ADENOIDECTOMY HX ALLERGIES Banana MEDICATIONS Current Outpatient Medications Medication Sig levothyroxine (SYNTHROID) 50 mcg tablet take 1 tablet by mouth every morning ON AN EMPTY STOMACH FOR THYROID melatonin 1 mg chew Take by mouth. Kqprbej-Eiyyvgcvwzvov-Eungglrn (EXCEDRIN) 250-250-65 mg per tablet Take 1 tablet by mouth every 6 hours as needed. vitamin B complex (B COMPLEX ORAL) Take by mouth. No current facility-administered medications for this visit. FAMILY HISTORY Problem Relation Age of Onset Cancer Mother ? uterine Alcohol/Drug Father esophageal varices Alzheimer's Disease Maternal Grandmother Social History Tobacco Use Smoking status: Former Smokeless tobacco: Never Tobacco comments: 1PPD x 8-10 years Vaping Use Vaping status: Never Used Substance Use Topics Alcohol use: No Comment: drank some in the past Drug use: Not Currently Types: Marijuana Comment: remote marijuana EXAM: BP 128/76 Pulse 84 Resp 16 SpO2 97% PHYSICAL EXAM: General Appearance: Well appearing, alert, in no acute distress, well-hydrated, well nourished.. Skin: Skin color, texture, turgor normal, no suspicious rashes or lesions. Head: Normocephalic, no masses, lesions, tenderness or abnormalities. Eyes: Anicteric sclera. Pupils are equally round and reactive to light. Extraocular movements are intact. . Lungs: Lungs clear to auscultation. No wheezing, rhonchi, rales.. Heart: RRR without murmur, gallop, or rubs. No ectopy. Neurologic: Gait normal. R ASSESSMENT/PLAN: 1. Parkinson's disease with dyskinesia and fluctuating manifestations (HCC) - ICD9: 332.0, ICD10: G20.B2 (primary diagnosis) Will place referral for possible assist with household. Encouraged to follow-up with neuro. - PRIMARY CARE SOCIAL WORK CONSULT 2. Lumbar foraminal stenosis - ICD9: 724.02, ICD10: M48.061 Declines return to pain management. Referral to spine. Declines PT, as didn't find helpful in the past. - CONSULT TO [facility] 3. Encounter for immunization - ICD9: V03.89, ICD10: Z23 - PFIZER-BIONTECH COVID-19 VACCINE AGE 12+ YR (COMIRNATY) Discussed treatment plan and patient voices understanding. Patient's questions answered appropriately. Medications and potential side effects were discussed and patient voices understanding. Return to the office as scheduled or as needed for worsening/no improvement. Viola Phelps APRN.TRADE EMBALMER documented in this encounter [facility] 07-15-2024 Telephone encounter Note Patient has been identified by name and date of : Yes Patient phones for refill(s): Requested Prescriptions Pending Prescriptions Disp Refills levothyroxine (SYNTHROID) 50 mcg tablet 90 tablet 0 Sig: take 1 tablet by mouth every morning ON AN EMPTY STOMACH FOR THYROID Date of last office visit in primary care: 04/06/2024 Date of next office visit in primary care: Visit date not found Please advise. Thank you. Neli Tanner. [facility] 07-15-2024 Miscellaneous Notes Patient has been identified by name and date of : Yes Patient phones for refill(s): Requested Prescriptions Pending Prescriptions Disp Refills levothyroxine (SYNTHROID) 50 mcg tablet 90 tablet 0 Sig: take 1 tablet by mouth every morning ON AN EMPTY STOMACH FOR THYROID Date of last office visit in primary care: 04/06/2024 Date of next office visit in primary care: Visit date not found Please advise. Thank you. Neli Tanner. documented in this encounter [facility] 06-10-2024 Telephone encounter Note See TE on 06/05/24. Pradeep Angel LPN [facility] 06-10-2024 Miscellaneous Notes See TE on 06/05/24. Pradeep Angel LPN See 06/05/24 encounter --it looks like he was discussing with neuro. Since he is following with neuro, I would suspect referral should be from them. Viola Phelps APRN.TRADE EMBALMER See additional message that was also sent to neuro. He was contacted through [facility] and was concerned regarding travel to [facility]. Should this referral be coming from us or neuro? Pt called in stating he has Parkinsons and is requesting Gene therapy [facility] just need a referral. Please advise. Thank you documented in this encounter [facility] 06-10-2024 Telephone encounter Note See 06/05/24 encounter --it looks like he was discussing with neuro. Since he is following with neuro, I would suspect referral should be from them. Viola Phelps APRN.TRADE EMBALMER [facility] 06-10-2024 Telephone encounter Note See additional message that was also sent to neuro. [facility] 06-10-2024 Telephone encounter Note He was contacted through [facility] and was concerned regarding travel to [facility]. Should this referral be coming from us or neuro? [facility] 06-10-2024 Telephone encounter Note Pt called in stating he has Parkinsons and is requesting Gene therapy he is wanting to go to [facility] they just need a referral. Please advise. Thank you [facility] 05-05-2024 Telephone encounter Note LVM regarding PDGene study. Ellie Cortes, Yoke Setter [facility] Work Phone: 05-05-2024 Miscellaneous Notes LVM regarding PDGene study. Ellie Cortes Yoke Setter documented in this encounter [facility] 04-17-2024 Telephone encounter Note Summary: [facility] [id number] Tele-MAMMA LOGIST Attempted to contact the patient regarding Tele-MAMMA LOGIST study. LVM [facility] 04-17-2024 Miscellaneous Notes Summary: [facility] IR[facility] [id number] Tele-MAMMA LOGIST Attempted to contact the patient regarding Tele-MAMMA LOGIST study. LVM documented in this encounter [facility] 04-15-2024 Telephone encounter Note Received a call from Nava with questions about possible genetic treatments/therapies for Parkinson's disease. Discussed that I am not a clinical provider, but that I will send his question over to our clinical team to get an answer to his question and give him a call back. He understood and thanked me for the help. Serenity Baer Genetic Counselor Supervisor [employer] [facility] 04-15-2024 Miscellaneous Notes Received a call from Nava with questions about possible genetic treatments/therapies for Parkinson's disease. Discussed that I am not a clinical provider, but that I will send his question over to our clinical team to get an answer to his question and give him a call back. He understood and thanked me for the help. Serenity Baer Genetic Counselor Supervisor [employer] documented in this encounter [facility] 04-10-2024 Telephone encounter Note TC to pt, left detailed message with results/provider response on secure identified voicemail. Pt only to return call to office /c any questions or concerns. Pradeep Angel LPN [facility] 04-10-2024 Miscellaneous Notes TC to pt, left detailed message with results/provider response on secure identified voicemail. Pt only to return call to office /c any questions or concerns. Pradeep Angel LPN TC to lab client services, they will add on Folate and Vit B12. Pradeep Angel LPN Can please let patient know that I received some of his test results. His A1C was within normal. There is no diabetes. His prostate enzyme crept up a little bit, but is still in the age corrected normal range. See additional directions in [place] earlier in this encounter. Viola Phelps APRN.JEZ Unable to add B12 and Folate to labs already collected. Pt will need to come back to lab to get those drawn. Noelle Gruber MA, Please see if the lab can check a B12 and folate off of the blood work that was already sent. Lab was added on. Chary Mtz LPN A1C added -- can we please check with lab if A1C can be added to labs already drawn. Viola Phelps APRN.JEZ OV: 04/06/24 Pt reports he had labs done yesterday but has been thinking he needs his sugar tested. 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 Advised pt that part of the [facility] lab is testing (Glucose) and if the number is normal usually there is no need to do further testing like a A1C. Pt reports he does not care if his number is in the normal range he wants the advanced test done. Please review and advise. Shahla Boss LPN documented in this encounter [facility] 04-10-2024 Telephone encounter Note TC to lab client services, they will add on Folate and Vit B12. Pradeep Angel LPN [facility] 04-10-2024 Telephone encounter Note Can please let patient know that I received some of his test results. His A1C was within normal. There is no diabetes. His prostate enzyme crept up a little bit, but is still in the age corrected normal range. See additional directions in Jane earlier in this encounter. Viola Phelps APRN.TRADE EMBALMER [facility] 04-09-2024 Telephone encounter Note Unable to add B12 and Folate to labs already collected. Pt will need to come back to lab to get those drawn. Noelle Gruber MA, [facility] 04-09-2024 Telephone encounter Note Please see if the lab can check a B12 and folate off of the blood work that was already sent. [facility] Work Phone: 04-09-2024 Telephone encounter Note Lab was added on. Chary Mtz LPN [facility] 04-08-2024 Telephone encounter Note A1C added -- can we please check with lab if A1C can be added to labs already drawn. Viola Phelps APRN.JEZ [facility] 04-07-2024 Telephone encounter Note OV: 04/06/24 Pt reports he had labs done yesterday but has been thinking he needs his sugar tested. 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 Advised pt that part of the [facility] lab is testing (Glucose) and if the number is normal usually there is no need to do further testing like a A1C. Pt reports he does not care if his number is in the normal range he wants the advanced test done. Please review and advise. Shahla Boss LPN [facility] 04-06-2024 Instructions Viola Phelps APRN.JEZ - 04/06/2024 3:49 PM EDT Get labwork. Check with the [employer] customer service re: coverage for the heart monitor. Schedule echocardiogram. Schedule aorta ultrasound. documented in this encounter [facility] 04-06-2024 Note HNO ID: [id number] Author: VIOLA PHELPS APRN.JEZ Service: ? Author Type: Nurse Practitioner Type: Progress Notes Filed: 04/06/2024 20:22 Note Text: This is a 79 year old male who presents today with: Patient presents with: Recheck: Follow up- medication refills HISTORY OF PRESENT ILLNESS: Nava Healy is a 79 year old male. Patient presents with: Recheck: Follow up- medication refills Pt presents today for recheck/refills. + parkinson's. Following with neuro. He has expressed an interest in stem cell/gene therapy. Has been playing phone tag with research department. Gets palpitations. Refers several times daily. Can last 30 seconds. Refers that he also will get dizziness or flood of heat -- sometimes with palpitations, but can happen separately. No chest pain. Restless legs. More recent onset. Skin: Dry scaly itchy Applies lotion once in awhile. Nocturia Gets up 3-4 times nightly. Attributes to fluid intake prior to bedtime. PAST MEDICAL HISTORY: PAST MEDICAL HISTORY Diagnosis Date Hypothyroidism (acquired) age 68 PAST SURGICAL HISTORY Procedure Laterality Date TONSILLECTOMY AND ADENOIDECTOMY HX ALLERGIES Banana MEDICATIONS Current Outpatient Medications Medication Sig levothyroxine (SYNTHROID) 50 mcg tablet take 1 tablet by mouth every morning ON AN EMPTY STOMACH FOR THYROID melatonin 1 mg chew Take by mouth. Havccka-Pfaihuadvlbvd-Vagdgmkz (EXCEDRIN) 250-250-65 mg per tablet Take 1 tablet by mouth every 6 hours as needed. vitamin B complex (B COMPLEX ORAL) Take by mouth. No current facility-administered medications for this visit. FAMILY HISTORY Problem Relation Age of Onset Cancer Mother ? uterine Alcohol/Drug Father esophageal varices Alzheimer's Disease Maternal Grandmother Social History Tobacco Use Smoking status: Former Smokeless tobacco: Never Tobacco comments: 1PPD x 8-10 years Vaping Use Vaping Use: Never used Substance Use Topics Alcohol use: No Comment: drank some in the past Drug use: Not Currently Types: Marijuana Comment: remote marijuana EXAM: BP 130/88 Pulse 82 Resp 16 SpO2 99% PHYSICAL EXAM: General Appearance: Well appearing, alert, in no acute distress, well-hydrated, well nourished.. Skin: Skin color, texture, turgor normal, no suspicious rashes or lesions.. widespread dry, scaly skin. Head: Normocephalic, no masses, lesions, tenderness or abnormalities. Eyes: Anicteric sclera. Extraocular movements are intact. . Lungs: Lungs clear to auscultation. No wheezing, rhonchi, rales.. Heart: RRR without murmur, gallop, or rubs. No ectopy. Extremities: No deformities, edema, skin discoloration, clubbing or cyanosis. Good capillary refill. . Neurologic: ambulates w/ cane. Parkinson's appearance. ASSESSMENT/PLAN: 1. Parkinson's disease with dyskinesia and fluctuating manifestations (HCC) - ICD9: 332.0, ICD10: G20.B2 (primary diagnosis) Continue per neurology. 2. Acquired hypothyroidism - ICD9: 244.9, ICD10: E03.9 Get labs. - LEVOTHYROXINE 50 MCG TABLET - MAGNESIUM 3. Palpitations - ICD9: 785.1, ICD10: R00.2 EKG SR with RBBB. No ectopy or ST changes. Will get echo. Patient with check with [employer] customer service and let us know if okay to proceed with event monitor. - ECG COMPLETE - ECHO - PERFLUTREN LIPID MICROSPHERES 1.1 MG/ML INJECTION IN NS 10 ML - SODIUM CHLORIDE 0.9 % (FLUSH) INJECTION SYRINGE 4. Restless legs - ICD9: 333.94, ICD10: G25.81 Newer onset. Will check ferritin w/ labs. - IRON AND TIBC - FERRITIN 5. Pruritus, unspecified - ICD9: 698.9, ICD10: L29.9 As above. - IRON AND TIBC - FERRITIN 6. Family hx of aortic aneurysm - ICD9: V17.49, ICD10: Z82.49 Reports brother had AAA. - US SCREENING FOR AAA 7. Screening for prostate cancer - ICD9: V76.44, ICD10: Z12.5 - PSA/PROSTATE SPECIFIC ANTIGEN SCREENING Discussed treatment plan and patient voices understanding. Patient's questions answered appropriately. Medications and potential side effects were discussed and patient voices understanding. Return to the office as scheduled or as needed for worsening/no improvement. Viola Phelps APRN.[facility] 04-06-2024 History of Present illness Narrative This is a 79 year old male who presents today with: Patient presents with: Recheck: Follow up- medication refills HISTORY OF PRESENT ILLNESS: Nava Healy is a 79 year old male. Patient presents with: Recheck: Follow up- medication refills Pt presents today for recheck/refills. + parkinson's. Following with neuro. He has expressed an interest in stem cell/gene therapy. Has been playing phone tag with research department. Gets palpitations. Refers several times daily. Can last 30 seconds. Refers that he also will get dizziness or flood of heat -- sometimes with palpitations, but can happen separately. No chest pain. Restless legs. More recent onset. Skin: Dry scaly itchy Applies lotion once in awhile. Nocturia Gets up 3-4 times nightly. Attributes to fluid intake prior to bedtime. PAST MEDICAL HISTORY: PAST MEDICAL HISTORY Diagnosis Date Hypothyroidism (acquired) age 68 PAST SURGICAL HISTORY Procedure Laterality Date TONSILLECTOMY AND ADENOIDECTOMY HX ALLERGIES Banana MEDICATIONS Current Outpatient Medications Medication Sig levothyroxine (SYNTHROID) 50 mcg tablet take 1 tablet by mouth every morning ON AN EMPTY STOMACH FOR THYROID melatonin 1 mg chew Take by mouth. Lkorgtf-Hndsevlzovrde-Ghqhtyto (EXCEDRIN) 250-250-65 mg per tablet Take 1 tablet by mouth every 6 hours as needed. vitamin B complex (B COMPLEX ORAL) Take by mouth. No current facility-administered medications for this visit. FAMILY HISTORY Problem Relation Age of Onset Cancer Mother ? uterine Alcohol/Drug Father esophageal varices Alzheimer's Disease Maternal Grandmother Social History Tobacco Use Smoking status: Former Smokeless tobacco: Never Tobacco comments: 1PPD x 8-10 years Vaping Use Vaping Use: Never used Substance Use Topics Alcohol use: No Comment: drank some in the past Drug use: Not Currently Types: Marijuana Comment: remote marijuana EXAM: BP 130/88 Pulse 82 Resp 16 SpO2 99% PHYSICAL EXAM: General Appearance: Well appearing, alert, in no acute distress, well-hydrated, well nourished.. Skin: Skin color, texture, turgor normal, no suspicious rashes or lesions.. widespread dry, scaly skin. Head: Normocephalic, no masses, lesions, tenderness or abnormalities. Eyes: Anicteric sclera. Extraocular movements are intact. . Lungs: Lungs clear to auscultation. No wheezing, rhonchi, rales.. Heart: RRR without murmur, gallop, or rubs. No ectopy. Extremities: No deformities, edema, skin discoloration, clubbing or cyanosis. Good capillary refill. . Neurologic: ambulates w/ cane. Parkinson's appearance. ASSESSMENT/PLAN: 1. Parkinson's disease with dyskinesia and fluctuating manifestations (HCC) - ICD9: 332.0, ICD10: G20.B2 (primary diagnosis) Continue per neurology. 2. Acquired hypothyroidism - ICD9: 244.9, ICD10: E03.9 Get labs. - LEVOTHYROXINE 50 MCG TABLET - MAGNESIUM 3. Palpitations - ICD9: 785.1, ICD10: R00.2 EKG SR with RBBB. No ectopy or ST changes. Will get echo. Patient with check with [employer] customer service and let us know if okay to proceed with event monitor. - ECG COMPLETE - ECHO - PERFLUTREN LIPID MICROSPHERES 1.1 MG/ML INJECTION IN NS 10 ML - SODIUM CHLORIDE 0.9 % (FLUSH) INJECTION SYRINGE 4. Restless legs - ICD9: 333.94, ICD10: G25.81 Newer onset. Will check ferritin w/ labs. - IRON AND TIBC - FERRITIN 5. Pruritus, unspecified - ICD9: 698.9, ICD10: L29.9 As above. - IRON AND TIBC - FERRITIN 6. Family hx of aortic aneurysm - ICD9: V17.49, ICD10: Z82.49 Reports brother had AAA. - US SCREENING FOR AAA 7. Screening for prostate cancer - ICD9: V76.44, ICD10: Z12.5 - PSA/PROSTATE SPECIFIC ANTIGEN SCREENING Discussed treatment plan and patient voices understanding. Patient's questions answered appropriately. Medications and potential side effects were discussed and patient voices understanding. Return to the office as scheduled or as needed for worsening/no improvement. Viola Phelps APRN.TRADE EMBALMER documented in this encounter [facility] 03-12-2024 Telephone encounter Note Summary: Research Patient called and left voice mail interested in research. Returned call and left voice mail. [facility] Work Phone: 03-12-2024 Miscellaneous Notes Summary: Research Patient called and left voice mail interested in research. Returned call and left voice mail. documented in this encounter [facility] 01-22-2024 Telephone encounter Note Patient was a no show for his appointment today, 01/21, with Rishabh Aldridge. HALINA Goetz [facility] 01-22-2024 Miscellaneous Notes Patient was a no show for his appointment today, 01/21, with Rishabh Aldridge. HALINA Goetz TC no answer. Left VM to return call. HALINA Goetz TC to pt with no answer. Left VM to return call. We are unable to do telephone visits, if pt can not do a video visit. He can reschedule. Sarah Oconnor LPN Patient reports he has upcoming appt with Kirstin Aldridge CNP this Saturday01/22/24. Patient states with his Parkinson's, it makes walking uncomfortable and he is asking if appt can be changed to a Phone Call appt? Pt unable to do virtual. Please call patient with update. Thank you. documented in this encounter [facility] 01-22-2024 Telephone encounter Note TC no answer. Left VM to return call. HALINA Goetz [facility] 01-21-2024 Telephone encounter Note Summary: Research Patient reached out interested in research trials (specifically stem cell). Called and left voicemail. [facility] Work Phone: 01-21-2024 Miscellaneous Notes Summary: Research Patient reached out interested in research trials (specifically stem cell). Called and left voicemail. documented in this encounter [facility] 01-21-2024 Telephone encounter Note TC to pt with no answer. Left VM to return call. We are unable to do telephone visits, if pt can not do a video visit. He can reschedule. Sarah Oconnor LPN [facility] 01-20-2024 Telephone encounter Note Patient reports he has upcoming appt with Kirstin Aldridge CNP this Saturday01/22/24. Patient states with his Parkinson's, it makes walking uncomfortable and he is asking if appt can be changed to a Phone Call appt? Pt unable to do virtual. Please call patient with update. Thank you. [facility] 01-09-2024 Miscellaneous Notes I will reach out to [facility] regarding any such programs. Salvador Vargas MD Patient asking if Dr. Vargas is aware of any [facility] Stem Cell Programs for treatment of Parkinson's? If so, asking how he may be able get more information about this? Please advise patient. Thank you. documented in this encounter [facility] 01-08-2024 Miscellaneous Notes Patient notified. Pattie Balderrama RN Left message for patient to return call. Destiny Escamilla Ma I am not informed regarding use of stems cell injections for Parkinson's. He could ask Dr. Vargas. Thanks, Lazarus Abraham PA-C Patient calls and states that at last appointment provider had mentioned stem cell treatment for Parkinson's. Patient asking if provider knows if [facility] does this? Please review and advise, Janna Martinez RN documented in this encounter [facility] 01-02-2024 Miscellaneous Notes Sw spoke with patient and he notes needing assistance with light chores around the house. 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 Sw notes [facility] and [facility] as a few options for home property caretaker agencies in the community. Sw will mail [facility] Older Adult Resource Guide along with [facility], [facility], and [facility] information to patient home. Patient notes that he will take a look at information and then reach out to home property caretaker agencies to discuss cost and availability. Mckinley received message from patient returning Sw call. Sw called patient back and left message that Sw will try call another time. Mckinley left message for patient to return call to discuss community social service/home care/intermediate care needs. documented in this encounter [facility] 12-30-2023 History of Present illness Narrative 78 year old male with c/o 4 week follow up from 12/02/2023 Started on gabapentin 100mg three times a day States made him feel worse increase pain and dizziness and instability after a few days even though we discussed loading and initial side effects. 11/18/[address] Eddi Larson, spine with [facility]/ [facility] 10/25/2023 MRI spine lumbar without contrast: 1. Scoliotic curvature and multilevel degenerative changes resulting in multilevel spinal cord and neural foraminal stenosis. Right L3, left L4, and bilateral L5 nerve root impingement. Recommend spine surgery consult. 2. Partially visualized degenerative changes in cervical spine with straightening of cervical lordosis, multi level facet arthrosis, uncovertebral joint and endplate osteophytosis, multilevel disc bulges and at least mild multilevel spinal canal and neural foraminal stenosis. If any reason for more detailed evaluation, dedicated imaging of cervical spine recommended. 3. Scoliotic curvature of spine is identified. This should be correlated with examination and potentially weightbearing radiographs. 4. Prostate enlargement with prostate heterogeneity: Follow-up as clinically indicated. 5. Diverticulosis without overwhelming evidence of diverticulitis. Has not scheduled podiatry for incurvated nails Was able to get nails trimmed. Place cap on right second toe which has been great. Declined surgery to release tendon second right toe to resolved claw toe: declined Knows he is failing, medication phobic. Cats are all important, would pass them off to someone if they would take over feeding: would even pay. Stops activities which increase pain thinking this will resolve pain. Now tells me he didn't benefit from percocet (last year asking for them)< Didn't care for Dr. Mera 27 injections with no improvement. Discussed ablation with him- wasn't aware of this options, still not interested in davila management. Doesn't want surgery even though understands mod-severe spinal and foraminal stenosis. Carbidopa-levadopa made him feels worse. Seeing Kirstin Aldridge PA-C next week. HISTORIES FAMILY HISTORY Problem Relation Age of Onset Cancer Mother ? uterine Alcohol/Drug Father esophageal varices Alzheimer's Disease Maternal Grandmother PAST MEDICAL HISTORY Diagnosis Date Hypothyroidism (acquired) age 68 PAST SURGICAL HISTORY Procedure Laterality Date TONSILLECTOMY AND ADENOIDECTOMY HX Social History Tobacco Use Smoking status: Former Smokeless tobacco: Never Tobacco comments: 1PPD x 8-10 years Vaping Use Vaping Use: Never used Substance Use Topics Alcohol use: No Comment: drank some in the past Drug use: Not Currently Types: Marijuana Comment: remote marijuana ACTIVE PROBLEM LIST Acquired Hypothyroidism Ddd (Degenerative Disc Disease), Lumbar Lumbar Foraminal Stenosis Parkinson's Syndrome (Hcc) Current Outpatient Medications Medication Sig Dispense Refill gabapentin (NEURONTIN) 100 mg capsule Titrate as discussed to three times a day 90 capsule 0 levothyroxine (SYNTHROID) 50 mcg tablet take 1 tablet by mouth every morning ON AN EMPTY STOMACH FOR THYROID 90 tablet 3 Triamcinolone Acetonide 0.05 % oint Apply to affected area. (Patient not taking: Reported on 12/02/2023) melatonin 1 mg chew Take by mouth. Ptvpqov-Klsahwvfxdttk-Kbhqzazc (EXCEDRIN) 250-250-65 mg per tablet Take 1 tablet by mouth every 6 hours as needed. vitamin B complex (B COMPLEX ORAL) Take by mouth. No current facility-administered medications for this visit. DTaP,Tdap,Td Vaccine(1 - Tdap) Never done Shingrix Vaccine(1 of 2) Never done RSV Vaccine(1 - 1-dose 60+ series) Never done Pneumococcal Vaccine: 65+(1 of 1 - PCV) Never done Advance Directive Discussion due on 09/23/2023 Behavioral Health Screening Never done Lab review: Latest Ref Rng 02/05/2022 10/31/2022 04/16/2023 05/29/2023 Glucose 74 - 99 mg/dL 80 BUN 9 - 24 mg/dL 14 Creatinine 0.73 - 1.22 mg/dL 0.85 Sodium 136 - 144 mmol/L 142 Potassium 3.7 - 5.1 mmol/L 4.1 Chloride 97 - 105 mmol/L 104 CO2 22 - 30 mmol/L 23 Anion Gap 9 - 18 mmol/L 15 Calcium 8.5 - 10.2 mg/dL 9.8 eGFR >=60 mL/min/1.73m 89 TSH 0.270 - 4.200 mIU/L 2.940 2.650 Vitamin B12 232 - 1,245 pg/mL 876 879 Folate >4.7 ng/mL >20.0 12.1 PSA Screening <2.60 ng/mL 2.69 (H) CRP <0.9 mg/dL <0.3 WSR 0 - 15 mm/hr 20 (H) MICHELLE Negative Negative Uric Acid 4.0 - 8.1 mg/dL 5.5 Lyme Abs, IgG/IgM Negative Negative Vitamin C, Plasma 23 - 114 umol/L 42 Vitamin D 25 Hydroxy 31.0 - 80.0 ng/mL 27.6 (L) CK 51 - 298 U/L 154 LD 135 - 225 U/L 190 EXAM: BP 138/90 Pulse (!) 56 Resp 16 Wt 59 kg (130 lb) SpO2 96% BMI 17.63 kg/m 05/21/2023 07/29/2023 10/01/2023 12/02/2023 12/30/2023 Vitals WEIGHT in POUNDS 125 lb 9.6 oz 127 lb 9.6 oz 130 lb 6.4 oz 131 lb 130 lb WEIGHT in KILOGRAMS 56.972 kg 57.879 kg 59.149 kg 59.421 kg 58.968 kg Pleasant elderly thin man in no acute distress. Alert and oriented all spheres. Normal affect and cognition. Speech normal. No deficits to learning or comprehension. Judgment is intact. Skin warm, dry, pink to lips and nailbeds. Turgor consistent with age, prompt capillary refil. . Respirations regular and unlabored. HEENT: NCAT. No scleral icterus or conjunctival injection. TM's clear. Nose and oropharynx free from injection or lesion. Oral membranes dry. No cervical lymph nodes. Thyroid non-tender, no masses, or enlargement. Carotids pulses 2+/4+ without bruits. No JVD with HOB at 30 degrees. Chest is normal shape. Lungs are clear to all castaneda with good air exchange through out. HRRR without murmur or gallop. No lifts, heaves, or rubs. Extrem: no clubbing or cyanosis. Edema: none. Extremities are warm and pink with prompt capillary refill. Feet are warm and pink with prompt capillary refill. Nails appear much improved. ASSESSMENT/PLAN: 1. Lumbar foraminal and canal stenosis moderate-severe L4, L5 - ICD9: 724.02, ICD10: M48.061 (primary diagnosis) Discussed pain management for ablation- will research and let me know Asked for trial steroid again- last episode with prednisone did not help - METHYLPREDNISOLONE 4 MG TABLETS IN A DOSE PACK 2. Parkinson's disease with dyskinesia and fluctuating manifestations (HCC) - ICD9: 332.0, ICD10: G20.B2 Has f/u with neuro: medication phobic and does not complete medications long enough to load- this was discussed. 3. Acquired hypothyroidism - ICD9: 244.9, ICD10: E03.9 Stable on medication 4. Underweight - ICD9: 783.22, ICD10: R63.6 Stable over last 6 months 5. Chronic pain syndrome - ICD9: 338.4, ICD10: G89.4 trial - METHYLPREDNISOLONE 4 MG TABLETS IN A DOSE PACK 6. Age-related physical debility - ICD9: 797, ICD10: R54 Willing to go into assisted living if can get cats in safety. Very concerned for falls: he acknowledges this risk Chart forwarded to social service to see if [facility] might be able to step in. Basilio Abraham PA-C documented in this encounter [facility] 12-02-2023 Instructions Basilio Abraham PA-C - 12/02/2023 3:54 PM EDT Gabapentin (Patient Education - Adult Medication) You must carefully read the Consumer Information Use and Disclaimer below in order to understand and correctly use this information Pronunciation (GA ba pen jarrell) Brand Names: USGralise; Gralise Starter; Neurontin Brand Names: [place]ACT Gabapentin [DSC]; AG-Gabapentin; APO-Gabapentin; Auro-Gabapentin; BCI Gabapentin [DSC]; BIO-Gabapentin; DOM-Gabapentin; GD-Gabapentin; GLN-Gabapentin; JAMP-Gabapentin; Mar-Gabapentin; MYLAN-Gabapentin [DSC]; Neurontin; PHL-Gabapentin [DSC]; PMS-Gabapentin; Priva-Gabapentin; PRO-Gabapentin; RAN-Gabapentin; JOSÉ MIGUEL-Gabapentin; TARO-Gabapentin; TEVA-Gabapentin; VAN-Gabapentin [DSC] What is this drug used for? It is used to treat seizures. It is used to treat painful nerve diseases. It may be given to you for other reasons. Talk with the doctor. What do I need to tell my doctor BEFORE I take this drug? If you have an allergy to gabapentin or any other part of this drug. If you are allergic to any drugs like this one, any other drugs, foods, or other substances. Tell your doctor about the allergy and what signs you had, like rash; hives; itching; shortness of breath; wheezing; cough; swelling of face, lips, tongue, or throat; or any other signs. If you have kidney disease or are on dialysis. This is not a list of all drugs or health problems that interact with this drug. Tell your doctor and pharmacist about all of your drugs (prescription or OTC, natural products, vitamins) and health problems. You must check to make sure that it is safe for you to take this drug with all of your drugs and health problems. Do not start, stop, or change the dose of any drug without checking with your doctor. What are some things I need to know or do while I take this drug? Tell all of your health care providers that you take this drug. This includes your doctors, nurses, pharmacists, and dentists. Avoid driving and doing other tasks or actions that call for you to be alert until you see how this drug affects you. This drug may affect certain lab tests. Tell all of your health care providers and lab workers that you take this drug. Have blood work checked as you have been told by the doctor. Talk with the doctor. Talk with your doctor before you drink alcohol or use other drugs and natural products that slow your actions. This drug is not the same as gabapentin enacarbil (Horizant ). Do not use in its place. Talk with the doctor. A severe and sometimes deadly reaction has happened. Most of the time, this reaction has signs like fever, rash, or swollen glands with problems in body organs like the liver, kidney, blood, heart, muscles and joints, or lungs. If you have questions, talk with the doctor. Do not stop taking this drug all of a sudden without calling your doctor. You may have a greater risk of side effects. If you need to stop this drug, you will want to slowly stop it as ordered by your doctor. If you are 65 or older, use this drug with care. You could have more side effects. Use with care in children. Talk with the doctor. Tell your doctor if you are or plan on getting . You will need to talk about the benefits and risks of using this drug while you are . Tell your doctor if you are breast-feeding. You will need to talk about any risks to your baby. What are some side effects that I need to call my doctor about right away? WARNING/CAUTION: Even though it may be rare, some people may have very bad and sometimes deadly side effects when taking a drug. Tell your doctor or get medical help right away if you have any of the following signs or symptoms that may be related to a very bad side effect: Signs of an allergic reaction, like rash; hives; itching; red, swollen, blistered, or peeling skin with or without fever; wheezing; tightness in the chest or throat; trouble breathing, swallowing, or talking; unusual hoarseness; or swelling of the mouth, face, lips, tongue, or throat. Signs of liver problems like dark urine, feeling tired, not hungry, upset stomach or stomach pain, light-colored stools, throwing up, or yellow skin or eyes. Signs of kidney problems like unable to pass urine, change in how much urine is passed, blood in the urine, or a big weight gain. Trouble controlling body movements, twitching, change in balance, trouble swallowing or speaking. Memory problems or loss. Change in eyesight. Feeling confused. Shakiness. Shortness of breath, a big weight gain, or swelling in the arms or legs. Feeling very tired or weak. Not able to control eye movements. If seizures are worse or not the same after starting this drug. Any unexplained bruising or bleeding. Swollen gland. Fever or chills. Sore throat. Muscle pain or weakness. Not able to focus. Very bad dizziness or passing out. Patients who take this drug may be at a greater risk of having thoughts or actions of suicide. The risk may be greater in people who have had these thoughts or actions in the past. Call the doctor right away if signs like low mood (depression), nervousness, restlessness, grouchiness, panic attacks, or changes in mood or actions are new or worse. Call the doctor right away if any thoughts or actions of suicide occur. What are some other side effects of this drug? All drugs may cause side effects. However, many people have no side effects or only have minor side effects. Call your doctor or get medical help if any of these side effects or any other side effects bother you or do not go away: Dizziness. Feeling sleepy. Upset stomach or throwing up. Diarrhea. Dry mouth. Feeling tired or weak. These are not all of the side effects that may occur. If you have questions about side effects, call your doctor. Call your doctor for medical advice about side effects. You may report side effects to your national health agency. How is this drug best taken? Use this drug as ordered by your doctor. Read all information given to you. Follow all instructions closely. All products: Keep taking this drug as you have been told by your doctor or other health care provider, even if you feel well. To gain the most benefit, do not miss doses. If you are taking an antacid that has aluminum or magnesium in it, take this drug at least 2 hours after taking the antacid. Gralise: Take with the evening meal. Swallow whole. Do not chew, break, or crush. All other products: Take with or without food. Take with food if it causes an upset stomach. Capsules: Swallow whole with a full glass of water. Tablets: You may break the tablet in half. Do not chew or crush. If you break the tablet in half, use the other half of the tablet for the next dose, as told by the doctor. Throw away half-tablets not used within 28 days. Liquid (solution): Measure liquid doses carefully. Use the measuring device that comes with this drug. If there is none, ask the pharmacist for a device to measure this drug. What do I do if I miss a dose? Take a missed dose as soon as you think about it. If it is close to the time for your next dose, skip the missed dose and go back to your normal time. Do not take 2 doses at the same time or extra doses. How do I store and/or throw out this drug? Liquid (solution): Store in a refrigerator. Do not freeze. All other products: Store at room temperature. Store in a dry place. Do not store in a bathroom. All dose forms: Keep all drugs in a safe place. Keep all drugs out of the reach of children and pets. Throw away unused or drugs. Do not flush down a toilet or pour down a drain unless you are told to do so. Check with your pharmacist if you have questions about the best way to throw out drugs. There may be drug take-back programs in your area. General drug facts If your symptoms or health problems do not get better or if they become worse, call your doctor. Do not share your drugs with others and do not take anyone else's drugs. Keep a list of all your drugs (prescription, natural products, vitamins, OTC) with you. Give this list to your doctor. Talk with the doctor before starting any new drug, including prescription or OTC, natural products, or vitamins. Some drugs may have another patient information leaflet. If you have any questions about this drug, please talk with your doctor, nurse, pharmacist, or other health care provider. If you think there has been an overdose, call your poison control center or get medical care right away. Be ready to tell or show what was taken, how much, and when it happened. Last Reviewed Date 2017-12-27 Systane eye drops Refresh eye drops documented in this encounter [facility] 12-02-2023 History of Present illness Narrative 78 year old male with c/o here for follow up Parkinsonian features (primary encounter diagnosis) Unstable gait Generalized weakness Myalgias Fasciculations Chronic midline low back pain without sciatica Current medications: Carbidopa-levodopa 25-200mg 1/2 tab 4p-8p-12m Neurologist: Seeing Dr. Vargas From his last notes: Patient with multiple complaints as above of which etiology is uncertain. To some extent, dx has been limited by patient's compliance with Rx'd medications, specifically Sinemet. While PD remains in ddx, I am concerned there may be another cause. CPK was normal last visit, but pt with reported thryoid dz and reporting pain in kodi prox thighs that is not explained by MRI of L spine showing no canal stenosis. Also considered non neurologic process such as PMR but both CRP and ESR negative. Patient also with generalized weakness on exam supporting a possible myopathy. The other concern is that there are noted fasciculations in both upper and lower extremities, that in turn raises question of a possible motor neuron disease. D/w pt ddx and recommended EMG/NCV to further evaluate for myopathy as well as motor neuron disease but at this time he declines. He is however willing to try treating possible PD again with meds, and thus, will start on Sinemet 25/100mg 1/2 tablet at 4PM, 8PM and MN (based on his wake schedule), that can be increased to 1 tab with each dose if no side effects and persistence of his symptoms as above. SE and ADRs d/w pt. PD too was d/w pt in detail including etiology, physiology, treatment and prognosis. He will follow up in 4-8 weeks. If still no improvement then would recommend the EMG/NCV study as above. Note that history and exam not suggesting L spine etiology. States day after he started carbidopa levodopa had terrible diarrhea. Had accupuncture, extremely painful in back. Didn't use accupuncture needles. Saw Dr. Larson who ordered MRI on back. Thighs are very comfortable, irritating with light touch. No falls Eyes blurry dull vision, itchy, watery gritty Has ingrown right toenail incurvated over right second toe - painful Acquired hypothyroidism Hypothyroidism Current medication: synthroid 50 mcg daily AC 1 hour Taking as directed on an empty stomach? Yes. Thyroid pain: No. Mass effect: No. Change in energy level/ fatigue? Yes. Fatigued, weak, complications with balance Sleep disturbance ?Yes. Temperature Intolerance: cold No, hot No. Change in bowel habits? No. If yes: Weight changes?No. Change in hair or skin? No. If yes: chronically dry skin lower legs. Other symptoms: HISTORIES FAMILY HISTORY Problem Relation Age of Onset Cancer Mother ? uterine Alcohol/Drug Father esophageal varices Alzheimer's Disease Maternal Grandmother PAST MEDICAL HISTORY Diagnosis Date Hypothyroidism (acquired) age 68 PAST SURGICAL HISTORY Procedure Laterality Date TONSILLECTOMY AND ADENOIDECTOMY HX Social History Tobacco Use Smoking status: Former Smokeless tobacco: Never Tobacco comments: 1PPD x 8-10 years Vaping Use Vaping Use: Never used Substance Use Topics Alcohol use: No Comment: drank some in the past Drug use: Not Currently Types: Marijuana Comment: remote marijuana ACTIVE PROBLEM LIST Acquired Hypothyroidism Ddd (Degenerative Disc Disease), Lumbar Lumbar Foraminal Stenosis Parkinson's Syndrome (Hcc) Current Outpatient Medications Medication Sig Dispense Refill carbidopa-levodopa (SINEMET) 25-100 mg per tablet Take 1/2 tablet 4PM, 8PM and MN. If no side effects and no improvement of symptoms after 1 week, then recommend increasing does to 1 tablet at 4PM, 8PM and MN. (Patient not taking: Reported on 10/01/2023) 90 tablet 2 piroxicam (FELDENE) 10 mg capsule Take 1 capsule by mouth once daily. (Patient not taking: Reported on 07/29/2023) 15 capsule 0 levothyroxine (SYNTHROID) 50 mcg tablet take 1 tablet by mouth every morning ON AN EMPTY STOMACH FOR THYROID 90 tablet 3 Triamcinolone Acetonide 0.05 % oint Apply to affected area. melatonin 1 mg chew Take by mouth. Ibncwvz-Trtlljrgfqnoc-Sqelnfsj (EXCEDRIN) 250-250-65 mg per tablet Take 1 tablet by mouth every 6 hours as needed. vitamin B complex (B COMPLEX ORAL) Take by mouth. No current facility-administered medications for this visit. DTaP,Tdap,Td Vaccine(1 - Tdap) Never done Shingrix Vaccine(1 of 2) Never done RSV Vaccine(1 - 1-dose 60+ series) Never done Pneumococcal Vaccine: 65+(1 of 1 - PCV) Never done Influenza Vaccine(1) due on 05/24/2023 Advance Directive Discussion due on 09/23/2023 Depression Assessment due on 09/23/2023 EXAM: BP 132/80 Pulse 60 Resp 16 Wt 59.4 kg (131 lb) BMI 17.77 kg/m Pleasant frail appearing, thin older man, Parkinsonian facies, faint voice, in no acute distress. Alert and oriented all spheres. Normal affect and cognition. Speech normal. No deficits to learning or comprehension. Sensitive to light touch over left thigh. Skin warm, dry, pink to lips and nailbeds. Normal turgor. Dry skin areas with mild flaking. Respirations regular and unlabored. Extrem: no clubbing or cyanosis. Edema: none. Extremities are warm and pink with prompt capillary refill. Slightly wide based gait, insecurity without golf club to use as cane. Incurvated nail on right second toe, ingrown on plantar surface, somewhat painful but not read. ASSESSMENT/PLAN: 1. Parkinsonian features - ICD9: 781.0, ICD10: R29.818 (primary diagnosis) 2. Unstable gait - ICD9: 781.2, ICD10: R26.81 Following with neuro. Stopped carbidopa-levadopa after first week due to terrible diarrhea Tried acupuncture without improvement and was painful Not keen on DBS 3. Generalized weakness - ICD9: 780.79, ICD10: R53.1 Progressive: insists he can manage himself and cats. Discussed assisted living, fall precautions 4. Myalgias - ICD9: 729.1, ICD10: M79.10 5. Fasciculations - ICD9: 781.0, ICD10: R25.3 persistent 6. Chronic midline low back pain without sciatica - ICD9: 724.2, 338.29, ICD10: M54.50, G89.29 Spinal stenosis Agreed to try low dose gabaepentin Titrate 100mg slowly to three times a day Falls precautions emphasized. Educated on new medication administration, warnings and cautions, common side effects, anticipated duration or therapy, and instructions on cessation management to avoid risks if stops medication. Patient choice was discussed in shared decision making. 7. Acquired hypothyroidism - ICD9: 244.9, ICD10: E03.9 Stable, continue medication 8. Involution of toenail - ICD9: 703.0, ICD10: L60.8 Incurvated nail - CONSULT TO PODIATRY 9. Visual changes - ICD9: 368.9, ICD10: H53.9 - CONSULT TO OPHTHALMOLOGY F/u in 4 weeks or sooner as needed. Discussed need for director of claims/ over sight/ emergency alert system- identifies his brother checks ins 30 minute visit Some of this note may have been copied and pasted for the purpose of history context and comparison and has been adjusted for changes in prior data. Basilio Abraham PA-C documented in this encounter [facility] 07-29-2023 History of Present illness Narrative NEW PATIENT (CONSULT) HISTORY AND PHYSICAL EXAM PRIMARY CARE PHYSICIAN: Basilio Abraham PA-C REASON FOR CONSULT: Follow up within neuro dept REFERRING PHYSICIAN: No ref. provider found CHIEF COMPLAINT: Multiple complaints Consultation requested by No ref. provider found for an opinion regarding chief complaint of Patient presents with: Follow Up and my final recommendations will be communicated back to the requesting physician by way of shared medical record or letter via [place] mail. HISTORY OF PRESENT ILLNESS: Nava Healy is a 78 year old male, BMI 17.31 kg/m2 with a PMH significant for and per last office visit with Darryl Soto CNP (this is my first time seeing patient): R25.9 Parkinsonian features (primary encounter diagnosis) M54.50 Lumbar pain R26.81 Unstable gait Comment: Patient previously seen for unstable gait and lumbar pain. Notable hx includes RBD, DDD of lumbar spine, and hypothyroidism. At time of previous appointment he reported persistent lumbar pain and gait instability. Appointment was scheduled with pain management for relief of low back pain. He has since had follow-up at which time he received injections, however, he reports minimal improvement in symptoms. It was advised he attend physical therapy and he reports that he is following with physical therapist who specializes in PD. He will follow-up with pain management after completion of PT. In addition, given rigidity, stooped posture, shuffling gait, he was started on Sinemet 1/2 tablet 25-100mg 3 times daily with meals with goal of increasing to full tablet if no SE. Today, he reports he has not take medication with exception of a few times as he is worried about SE. Again, discussed side effects and will start medication at lower dose than discussed at last appointment. We will begin with 1/2 tablet BID and if tolerating well then increase to TID. After 2 weeks if no SE he will then increase to a full tablet. Recommend continuing to work with physical therapy as scheduled. Would also recommend continuing to use assistive ambulation device for stability and continue home exercises. H53.2 Double vision R42 Vertigo Comment: Today, pt reporting double vision as well as dizziness. He states that double vision has been present for roughly 2 years, however, he notes that he had severe episode of double vision roughly 2 months ago. Sx present bilaterally and do not improve upon closure of one eye. In addition, he reports episodes of dizziness. Initially, description of events seem to be related to lightheadedness, however during OV he experienced symptoms and describes them as a possible vertigo. Orthostatic VS obtained and unremarkable. At this time, concern for possible posterior circulation involvement and MRI brain ordered to evaluate for infarct. MRI brain was completed on 03/28/23 and I have reviewed images and agree with rad report as follows: Acute Change: There is no evidence of restricted diffusion to suggest an acute infarct. Hemorrhage: No evidence of prior parenchymal hemorrhage on the gradient echo images. Mass Lesion/ Mass Effect: No evidence of an intracranial mass or extra-axial fluid collection. No significant mass effect. Chronic Change: Scattered punctate foci of increased T2 and FLAIR signal are noted in the supratentorial white matter which is a nonspecific finding, but likely represents minimal chronic microvascular ischemia. Parenchyma: There is mild generalized parenchymal volume loss. The brain parenchyma is otherwise within normal limits of signal intensity and morphology. Ventricles: The lateral and third ventricles are enlarged but this likely relates to central volume loss. Skull Base: Hypothalamic and pituitary region are grossly normal. Craniocervical junction is normal. No significant marrow replacement process. Vasculature: Major intracranial arterial structures, and dural venous sinuses show typical flow void, suggesting patency by spin echo criteria. Other: Minimal right posterior ethmoid mucosal thickening The visualized paranasal sinuses and mastoid air cells are otherwise clear. The orbits and extracranial soft tissues are unremarkable. Pt using golf club for a cane - appears to be a 3 or 4 Iron. Patient reports symptoms of PD started about 2 years ago and is curtailing his life. States predominant problem is his back which is better if he sits or lies down. States skin over his thighs and legs gets sensitive and painful even with a little pressure. States saw dermatology couple times and meds were typical ointment. Then states his memory is going down hill. Then that he gets lightheaded and hot flashes every now and then that he thinks is not related to blood pressure but for which he is taking thyroxine. States hands feels like they are trying to go numb. States he is starting to get intention tremors. States he is always worried about falling as he has 14 stairs he has to go up and down throughout the day. Report from MRI of L spine after onset of symptoms (05/11/21) reports no central canal stenosis at any level. States the carbidopa levodopa he was hesitant to take when he read side effects, and called pharmacist who told him it would not help back pain and make constipation worse. States took 1/2 tab of 25/100mg for couple days BID and did not see any benefit. Patient denies fine motor difficulties. There is no tremor at rest during interview. No RBD symptoms in years but at that time jumped out of bed when having a dream about a snake (states 3 times he has had a response to a dream in past 10-15 years). States smell started going bad 8 years ago. Notes constipation. Then during interview states he feels a tad dizzy. Describes as hot flash. He is not endorsing vertigo. States he just has to relax and it will pass. States heart racing during event. Yet states when he checks pulse and BP at home during events always stable. Never had a heart monitor or ECG. States has been on levothyroxine 8-10 years - only TSH available and no T3/T4. States he has standard forwards posture that is causing his legs to be stiff. States he tried to live a healthy lifestyle. Some changes in voice in that it is softer. States part of that is the Parkinson's slobbering. No other sleep issues. No neck pain. States vision is a little more blurry - I used to have 20/10 vision but now states hard time seeing through glasses to watch tv. 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 States wears glasses when he drives and that helps. However, is not wearing glasses otherwise. I don't feel comfortable walking with glasses on as it offsets my distance estimated and feels like I am going to stumble. Patient is retired chiropractor. Pt has reverse sleep schedule in that he is up during night time hours and sleeps during daytime hours. Not wanting to change schedule. Pt states has cat rescue and has 20+ cats in his home. States no bites or scratches. REVIEW OF SYSTEMS GENERAL:No weight loss, malaise or fevers. HEENT:Negative for frequent or significant headaches, No changes in hearing or vision, no nose bleeds or other nasal problems NECK:Negative for lumps, goiter, pain and significant neck swelling RESPIRATORY: Negative for cough, wheezing or shortness of breath. CARDIOVASCULAR: Negative for chest pain, leg swelling or palpitations. GASTROINTESTINAL: Negative for abdominal discomfort, blood in stools or black stools or change in bowel habits GENITOURINARY: No history of dysuria, frequency or incontinence MUSCULOSKELETAL: See HPI. Back pain does not radiate down legs but more is a sensation in thighs that feel tight and burning. Never had EMG/NCV. NEUROLOGIC:See HPI. SKIN:Negative for lesions, rash, and itching. HEMATOLOGIC/LYMPHATIC/IMMUNOLOGIC :Negative for prolonged bleeding, bruising easily or swollen nodes. ENDOCRINE: Negative for cold or heat intolerance, polyuria, polydipsia and goiter. The remainder of the ROS was reviewed and is negative. LAB/IMAGING: Reviewed and include: WBC (k/uL) Date Value 02/05/2022 6.35 RBC (m/uL) Date Value 02/05/2022 4.59 Hemoglobin (g/dL) Date Value 02/05/2022 15.0 Hematocrit (%) Date Value 02/05/2022 46.3 MCV (fL) Date Value 02/05/2022 100.9 (H) MCH (pg) Date Value 02/05/2022 32.7 MCHC (g/dL) Date Value 02/05/2022 32.4 RDW-CV (%) Date Value 02/05/2022 12.6 Platelet Count (k/uL) Date Value 02/05/2022 288 MPV (fL) Date Value 02/05/2022 10.2 Glucose (mg/dL) Date Value 04/16/2023 80 BUN (mg/dL) Date Value 04/16/2023 14 Creatinine (mg/dL) Date Value 04/16/2023 0.85 Sodium (mmol/L) Date Value 04/16/2023 142 Potassium (mmol/L) Date Value 04/16/2023 4.1 Chloride (mmol/L) Date Value 04/16/2023 104 CO2 (mmol/L) Date Value 04/16/2023 23 Protein, Total (g/dL) Date Value 02/05/2022 7.9 Albumin (g/dL) Date Value 02/05/2022 4.6 Calcium, Total (mg/dL) Date Value 04/16/2023 9.8 Alkaline Phosphatase (U/L) Date Value 02/05/2022 73 Bilirubin, Total (mg/dL) Date Value 02/05/2022 0.7 AST (U/L) Date Value 02/05/2022 26 ALT (U/L) Date Value 02/05/2022 18 MICHELLE (no units) Date Value 05/29/2023 Negative Hep C Antibody IA (no units) Date Value 10/13/2018 Negative Sed Rate = 20 MICHELLE negative CRP normal.CPK 154 MEDICATIONS: levothyroxine (SYNTHROID) 50 mcg tablet take 1 tablet by mouth every morning ON AN EMPTY STOMACH FOR THYROID Triamcinolone Acetonide 0.05 % oint Apply to affected area. melatonin 1 mg chew Take by mouth. Uphgpmr-Dzkiqadrtckkk-Jxlkyifl (EXCEDRIN) 250-250-65 mg per tablet Take 1 tablet by mouth every 6 hours as needed. vitamin B complex (B COMPLEX ORAL) Take by mouth. piroxicam (FELDENE) 10 mg capsule Take 1 capsule by mouth once daily. (Patient not taking: Reported on 07/29/2023) carbidopa-levodopa (SINEMET) 25-100 mg per tablet Take 1 tablet by mouth three times daily. (Patient not taking: Reported on 05/21/2023) HISTORIES PAST MEDICAL HISTORY Diagnosis Date Hypothyroidism (acquired) age 68 FAMILY HISTORY Problem Relation Age of Onset Cancer Mother ? uterine Alcohol/Drug Father esophageal varices Alzheimer's Disease Maternal Grandmother SOCIAL HISTORY Social History Tobacco Use Smoking status: Former Smokeless tobacco: Never Tobacco comments: 1PPD x 8-10 years Vaping Use Vaping Use: Never used Substance Use Topics Alcohol use: No Comment: drank some in the past Drug use: Not Currently Types: Marijuana Comment: remote marijuana PHYSICAL EXAMINATION BP 138/95 Pulse 86 Resp 18 Wt 57.9 kg (127 lb 9.6 oz) SpO2 98% BMI 17.31 kg/m GENERAL EXAM: General appearance: NAD, pleasant. HEENT: NC/AT, nasal congestion absent, no oral lesions, membranes moist. NECK: No masses, supple. Lungs: CTA bilaterally. CV: RRR nl S1, S2. No carotid bruits. Extr: No cyanosis, clubbing or edema. Significantly dry skin. Skin: Cool to touch. NEUROLOGICAL EXAM: General: Awake, alert, oriented x3 (person,place,time), speech fluent, no dysarthria; comprehension, naming, repetition intact. Masked facies. Mild hypophonia. CN: PERRL, fundi with no evidence of papilledema, EOMI and without nystagmus, VFF to confrontation, facial sensation and strength are normal and symmetric, hearing is intact to finger rub bilaterally, palate and tongue movements are intact and symmetric. SCM and trapezius strength normal. Motor: Normal tone. Decreased bulk throughout. Strength 4/5 throughout. Fasciculations noted in both upper and lower extremities. Reflexes: 2/4 and symmetric, plantar stimulation is equivocal. Coordination: FNF, DAYDAY, HTS intact. No resting tremor. Mild kodi postural tremor of low amp and high frequency. Sensation: Light touch, vibration, temperature intact throughout. No evidence of neglect. Gait: Narrow based, near normal stride. Arm swing appear normal on R and possibly diminished on L. Difficulties rising from chair without use of upper exts. Stooped posture. +Retropulsion on examination. -'ve str leg raise Assessment and Plan: ASSESSMENT/PLAN: 1. Parkinsonian features - ICD9: 781.0, ICD10: R29.818 (primary diagnosis) 2. Unstable gait - ICD9: 781.2, ICD10: R26.81 3. Generalized weakness - ICD9: 780.79, ICD10: R53.1 4. Myalgias - ICD9: 729.1, ICD10: M79.10 5. Fasciculation - ICD9: 781.0, ICD10: R25.3 6. Chronic midline low back pain without sciatica - ICD9: 724.2, 338.29, ICD10: M54.50, G89.29 Patient with multiple complaints as above of which etiology is uncertain. To some extent, dx has been limited by patient's compliance with Rx'd medications, specifically Sinemet. While PD remains in ddx, I am concerned there may be another cause. CPK was normal last visit, but pt with reported thryoid dz and reporting pain in kodi prox thighs that is not explained by MRI of L spine showing no canal stenosis. Also considered non neurologic process such as PMR but both CRP and ESR negative. Patient also with generalized weakness on exam supporting a possible myopathy. The other concern is that there are noted fasciculations in both upper and lower extremities, that in turn raises question of a possible motor neuron disease. D/w pt ddx and recommended EMG/NCV to further evaluate for myopathy as well as motor neuron disease but at this time he declines. He is however willing to try treating possible PD again with meds, and thus, will start on Sinemet 25/100mg 1/2 tablet at 4PM, 8PM and MN (based on his wake schedule), that can be increased to 1 tab with each dose if no side effects and persistence of his symptoms as above. SE and ADRs d/w pt. PD too was d/w pt in detail including etiology, physiology, treatment and prognosis. He will follow up in 4-8 weeks. If still no improvement then would recommend the EMG/NCV study as above. Note that history and exam not suggesting L spine etiology. 7. Lightheadedness - ICD9: 780.4, ICD10: R42 Chronic. Etiology unclear. 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 Also would recommend checking T3/T4, but pt declines at this time. 8. Blurred vision - ICD9: 368.8, ICD10: H53.8 Resolves if pt wears glasses. Recommended he do so. Recommended follow up with his habilitative interventionist who he has not seen in 2 years. Salvador Vargas MD I spent a total of 53 minutes on the date of the service which included preparing to see the patient, [id number] patient care, completing clinical documentation, obtaining and/or reviewing separately obtained history, performing a medically appropriate examination, counseling and educating the patient/family/caregiver, ordering medications, tests, or procedures, and communicating results to the patient/family/caregiver. There is no data to display for this encounter documented in this encounter [facility] 07-19-2023 Miscellaneous Notes Left the patient a voice message to call the office to schedule an EMG test. documented in this encounter [facility] 06-11-2023 Miscellaneous Notes Left message for patient to return call. Destiny Escamilla Ma Trial x 2 weeks with food once daily D/c baclofen The following approved medication requests have been transmitted electronically. Requested Prescriptions Signed Prescriptions Disp Refills piroxicam (FELDENE) 10 mg capsule 15 capsule 0 Sig: Take 1 capsule by mouth once daily. Authorizing Provider: Basilio ABRAHAM PA-C Patient returned call. In response to Lazarus's questions: -Pt states he is not using baclofen. Tried it and didn't like it. Reports he did not like the negative symptoms associated with the medication such as making him feel more lightheaded. Pt has made appt with Dr. Vargas for 07/29. Pattie Balderrama RN Left message for patient to return call. Destiny Escamilla Ma There sx are not specific to diabetes. Is he using baclofen? This is for muscle pain Has he made appointment with Dr. Vargas? If not please schedule with him specifically. Thanks, Lazarus Abraham PA-C Joint pain, muscle pain, vision impairment, lightheaded, hot flashes mostly every day. He has been checked annually for 4 years. Last check 1 month ago. FBS 80- non-diabetic Does not need additional lab. What symptom is he concerned about for diabetes? Insurance won't cover hgba1c for screening. Thanks, Lazarus Abraham PA-C Patient calls and is worried because he thinks he has diabetes. Patient asking if he can have testing done to see if he has Type II diabetes? Patient asking about a 2 hour test to test determine whether or not he has diabetes. Please review and advise, Janna Martinez RN documented in this encounter [facility] 05-21-2023 History of Present illness Narrative 78 year old male with c/o concerned medications aren't working for Parkinson's Seeing neuro Nikki Zamorano, JEZ Agreed wit dx Parkinson's Current medications: Carbidopa levodopa 25-100 mg 3 times daily 03/28/2023 MRI brain: Mild chronic changes. No evidence of an acute intracranial process. Stopped sinemet Reviewed with Nikki Zamorano Feeling lightheaded feels like he might have afib: episodic dizziness with hot flush in face. No falls, no syncopal events. No chest pain, irregular or rapid heart beats. Patient acknowledges poor diet. Doesn't cook much. Can't seem to get good food delivered, prior attempts had terrible food. Eats a lot of junk food. Reports skin is a mess Skin tender, painful more related to abdomen, lower legs. Saw two dermatologists Annita Velarde without any benefit. Was given Lac Hydrin HISTORIES FAMILY HISTORY Problem Relation Age of Onset Cancer Mother ? uterine Alcohol/Drug Father esophageal varices Alzheimer's Disease Maternal Grandmother PAST MEDICAL HISTORY Diagnosis Date Hypothyroidism (acquired) age 68 PAST SURGICAL HISTORY Procedure Laterality Date TONSILLECTOMY AND ADENOIDECTOMY HX Social History Tobacco Use Smoking status: Former Smokeless tobacco: Never Tobacco comments: 1PPD x 8-10 years Vaping Use Vaping Use: Never used Substance Use Topics Alcohol use: No Comment: drank some in the past Drug use: Not Currently Types: Marijuana Comment: remote marijuana ACTIVE PROBLEM LIST Acquired Hypothyroidism Ddd (Degenerative Disc Disease), Lumbar Lumbar Foraminal Stenosis Parkinson's Syndrome (Hcc) Current Outpatient Medications Medication Sig Dispense Refill levothyroxine (SYNTHROID) 50 mcg tablet take 1 tablet by mouth every morning ON AN EMPTY STOMACH FOR THYROID 90 tablet 3 carbidopa-levodopa (SINEMET) 25-100 mg per tablet Take 1 tablet by mouth three times daily. 90 tablet 2 Triamcinolone Acetonide 0.05 % oint Apply to affected area. melatonin 1 mg chew Take by mouth. Iorywsb-Essilrdemswxw-Rfsibwqo (EXCEDRIN) 250-250-65 mg per tablet Take 1 tablet by mouth every 6 hours as needed. vitamin B complex (B COMPLEX ORAL) Take by mouth. No current facility-administered medications for this visit. DTAP,TDAP,TD(1 - Tdap) Never done SHINGRIX VACCINE(1 of 2) Never done PNEUMOCOCCAL: 65+(1 - PCV) Never done DEPRESSION ASSESSMENT Never done COVID-19 VACCINE(6 - Pfizer series) due on 12/23/2022 EXAM: BP 138/82 Pulse 82 Resp 16 Wt 57 kg (125 lb 9.6 oz) SpO2 100% BMI 17.03 kg/m Pleasant underweight and stiff adult man in no acute distress. Parkinson's facies, slow blinking, drools with speaking, stiff, difficulty moving. Alert and oriented all spheres. Normal affect and cognition. Speech normal. No deficits to learning or comprehension. Skin warm, dry, pink to lips and nailbeds. Normal turgor. Has dry patches with ichthyosis allong flanks, trunk, back. Respirations regular and unlabored. HEENT: NCAT. No scleral icterus or conjunctival injection. TM's clear. Nose and oropharynx free from injection or lesion. Oral membranes moist and pink. Teeth are in poor condition. No cervical lymph nodes. Thyroid non-tender, no masses, or enlargement. Carotids pulses 2+/4+ without bruits. No JVD with HOB at 30 degrees. Chest is normal shape. Lungs are clear to all castaneda with good air exchange through out. HRRR without murmur or gallop. No lifts, heaves, or rubs. Back has straightening of lumbar curve, very stiff, fingers to below knee on flexion. Neck also reduced flexion, extension, lateral rotation. Extrem: no clubbing or cyanosis. Edema: none. Extremities are warm and pink with prompt capillary refill. ASSESSMENT/PLAN: 1. Myalgia - ICD9: 729.1, ICD10: M79.10 (primary diagnosis) Will rule out auto immune/ rheumatic sources, concerns for poor diet also raise question to vitamin deficiencies. - C-REACTIVE PROTEIN (CRP) - SED RATE WESTERGREN - CK CREATINE KINASE - LD LACTATE DEHYDRO 2. Polyarthralgia - ICD9: 719.49, ICD10: M25.50 - C-REACTIVE PROTEIN (CRP) - SED RATE WESTERGREN - MICHELLE BY IFA WITH REFLEX - URIC ACID BLOOD - LYME AB LATE >30 DAYS SYMPTOMS - CK CREATINE KINASE - LD LACTATE DEHYDRO - VITAMIN B12 BLOOD - FOLATE SERUM - VITAMIN C - VITAMIN D 25 HYDROXY 3. Lumbar foraminal stenosis - ICD9: 724.02, ICD10: M48.061 4. DDD (degenerative disc disease), lumbar - ICD9: 722.52, ICD10: M51.36 Again had discussion on patient's request for Percocet which he did receive from Dr. Mera at [address] Jimmy Morton for pain management. I explained the rationale for not using narcotics for chronic pain. Patient is asking me to give him a trial to see if will help. I have explained to him repeatedly that in order for him to receive chronic narcotics he will have to have pain management oversight and that he needs to discuss this with Dr. Morton. In the interim I offer again physical therapy which she is currently doing, alternative options with regular Tylenol arthritis, intermittent NSAIDs if necessary, steroid taper as needed. Patient has not had much benefit from intraforaminal injections. 5. Poor diet - ICD9: 269.9, ICD10: E63.9 - VITAMIN B12 BLOOD - FOLATE SERUM - VITAMIN C 6. Vitamin D deficiency - ICD9: 268.9, ICD10: E55.9 - VITAMIN D 25 HYDROXY 7. Underweight - ICD9: 783.22, ICD10: R63.6 Discussed my concerns again with the patient for his home situation. I do not feel that he is able to take care of himself well but he insists that he is able although he does not do a lot of housework. Patient remains focused on the multiple cats that he keeps alive by feeding them, 30 some cats. I did make the statement to him that I do not think the 30 cats being fed are worth his mental health and physical health and that I think he needs to reevaluate his responsibility to them. Patient cannot leave town because he is worried about his cats, cannot go for treatments because he is worried about his cats. He remains resilient that he feels this is his mission in life. 8. Acquired hypothyroidism - ICD9: 244.9, ICD10: E03.9 Numbers have been stable, I doubt that this is a complication with his current symptoms. 9. Parkinson's syndrome (HCC) - ICD9: 332.0, ICD10: G20 Patient is referred back to neurology, I have asked that he see Dr. Vargas at least once to review for medication options. Follow-up in 4 weeks Consider social service involvement, possibly notifying [facility] for concerns. 45-minute appointment. Basilio Abraham PA-C documented in this encounter [facility] 03-28-2023 History of Present illness Narrative Radiology Service Progress Note PATIENT NAME: Nava Healy DATE OF SERVICE: March 28, 2023 TIME: 2:33 PM PATIENT IDENTITY VERIFICATION COMPLETED USING TWO (2) IDENTIFIERS: Name and Date of confirmed by patient verbally. FALL SCREENING: Has the patient had 2 falls in the last year or 1 fall with injury or currently using an Ambulatory Assistive Device (Walker, Cane, Wheelchair, Crutches, etc.)? Yes, Patient High Risk for Falls What interventions were put in place to prevent falls during this visit? Instructed Patient to Call for Help if Needed, Offered Assistance with Transfers/Clothing, Instructed Patient to Remain Seated (Not on Exam Table) Until Exam, and Increased Observations by Caregivers PATIENT GENDER DATA: Male PATIENT RELEVANT IMPLANT DATA REVIEWED: Yes RADIOLOGY DEPARTMENT: MR; Exam(s) Completed: Head: Routine Brain PERIPHERAL IV DATA: Not applicable SIGNED BY: RT Yosi(R) March 28, 2023 2:33 PM documented in this encounter [facility] 03-18-2023 Discharge summary Note Date/Time March 18, 2023 3:37 pm [facility] [address] [place] [address]. [address] [place] [address] / REHABILITATION SERVICES DISCHARGE SUMMARY MR#: [id number] Acct: [id number] Name: NAVA HEALY Rep #: [id number] : 1945 77 From: Rebecca Leon Referring Dr.: Dr. Jordan Casas MD Status: REG RCR Insurance: MEDICARE PART A B SELF PAY INSURANCE It has been my pleasure to treat NAVA HEALY referred by Dr. Jordan Casas MD, with the diagnosis of PD for a total of 6 visit(s). Discharge Date: 03/18/23 Please see the following information for a summary of their discharge status. Subjective: Pt reports that he his discomfort with his legs and LB. 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 He is going to do some resting and then start back on a program with Passive Exercises and then got o active to strengthening. He thinks that therapy irritated him more and he pays for it for a few days. Even passive stretching irritates him. He wants to takea break and see if he can calm down his pain at home with his own therapy at home. back pain Pain Intensity (Out of 10): 5 % Improvement: 20 Objective/Function: LE strength: R hip flex 7.2 and L 8.4 with arms at sides. R knee ext 19.4 and L 21.3. R knee flex 14.4 and L 11.5. R hip abd in s/L 12.4and L 13.2. Standing up against the wall 7 inches away from the wall at the shoulder Goal 1:: I HEP Goal Progress: Goal Met Goal 2:: Increase LE strength (R hip flex 11.1 and L 10.1 with arms at sides. Rknee ext 12.3 and L 10.8. R knee flex 8.3 and L 5.5. R hip abd in s/L 4.8 and L 3.2). Goal Progress: Goal Met Goal 3:: Increase posture to be able to stand up straighter against the wall with knees straight (at eval 7 inches from the wall shoulder) Goal Progress: Not Progressing Goal 4:: Increase flexibility of B hip flexors Goal Progress: Not Progressing Goal 5:: Decrease back pain to 2/10 with sitting Goal Progress: Goal Met Plan: Pt will Dr Morton in about a week and he will tell him his plan to rest for a week or two and see if that reduces his pain and then build on PROM to AROM to strengthening. DC PT back to Dr Arshad Comments: DC PT If there are questions or concerns regarding this patient's physical therapy, please feel free to call me at [phone]. Thank you for the referral of thispatient. Sincerely, MARY Solis Balance/Gait/Functional tests - Balance/Special Test Scores Functional Gait Assessment Score: 19 % Disability: 36.6700 Lower Extremity Functional Score: 36 <Electronically signed by Rebecca Valadez MPT> 03/18/23 [id number] CC: HARI Abraham; Dr. Jordan Casas MD ~ Signed [facility] Work Phone: [phone]) 954-243006-01-2023 Instructions* Patient Instructions* Patsy Soto APRN.CNP - 02/21/2023 2:26 PM EDT 1.) Start Sinemet 1/2 tablet twice daily (breakfast and dinner). Increase to 1/2 tablet three timesdaily if no side effects. If no side effects after two weeks you can then increase to one full tablet. 2.) Continue to work with physical therapy and follow with pain management. 3.) Schedule MRI of the brain. [facility] History of Present illness Narrative* Patsy Soto APRN.CNP - 02/21/2023 1:45 PM EDT Images from the original note were not included. [facility] [place] Follow-up Visit Follow-up note February 21, 2023 HPI: Mr. Healy presents today for a follow-up visit. Per his previous visit on 12/27/22: R25.9 Parkinsonian features (primary encounter diagnosis) M54.50 Lumbar pain R26.81 Unstable gait Comment: Patient previously seen for unstable gait and lumbar pain. Notable hx includes RBD, DDD oflumbar spine, and hypothyroidism. Today pt reports persistent lumbar pain and gait instability. At time of last appointment gabapentin dose increased for further management of low back pain. He reports no relief of sx and has since stopped medication. He will be following up with pain management after appointment today. He also expresses interest in starting medication for PD as previously discussed. Exam consistent with that noted at time of previous appointment. Rigidity to RUE, stooped posture, shuffling gait. Exam findings as well as subjective report still suggestive of PD and therefore will begin Sinemet 1/2 tablet 25-100mg TID with meals. Will increase to full tablet TID if no SE after two weeks. For balance, discussed benefit of physical therapy. He defers at this time and would like to revisit at time of follow up appointment. Recommend continuing to use assistive ambulation device for stability and continue home exercises. He will return to the office in 8 weeks for reassessment and to review medication and possible consideration of PT. States symptoms have been the same. Back pain and leg pain has been the same. States he had injections and nothing has helped his symptoms. He is now working with therapist who specializes in PD. Tried massage. Will be following up with pain management as they recently sent him for PT at [facility]. Will then see pain management in four weeks after therapy. States he took Sinemet two 1/2 tabs yesterday. States he had no benefit and did not take it. Stateshe gets caught on SE. Though reports he has not had any SE thus far with the few tablets he took.States he read the medication can cause dementia as well as GI SE. He states his problem is back pain and poor posture leads to tightening in his legs/leg pain. Tries to use can when walking. Still shuffling. No falls and denies tripping. Goes up and down 14 stairs multiple times daily. Tremor is only occurring on rare occasion. Mostly when bringing food up to his mouth on a spoon. Still notes difficulty with handwriting; writing becomes smaller and smaller. Hx RBD. Speech has felt raspy and soft. Vision is blurry. Reporting double vision. If he closes one eye it is not present. Present with both open. Had one episode two months ago he had severe double vision. Side by side as well as up and down. Also having vertigo. States double vision has been present for a year or two but severe episode happened two months ago. States he takes Synthroid for thyroid dizziness. States he sometimes feels lightheaded which happened after taking Synthroid. Always happens when standing at the counter in the kitchen. Will sit down and let it pass. He states he has checked his BP when this happens. States it is normally low in general. One time it was high during an event. Drinks multiple drinks during the day including fruit drinks or soy milk. 5-6 glasses of fluid per day. Drinks water with fiber gummies. PAST MEDICAL HISTORY Diagnosis Date Hypothyroidism (acquired) age 68 PAST SURGICAL HISTORY Procedure Laterality Date TONSILLECTOMY AND ADENOIDECTOMY HX Current Outpatient Medications on File Prior to Visit Medication Sig carbidopa-levodopa (SINEMET) 25-100 mg per tablet Take 1 tablet by mouth three times daily. Triamcinolone Acetonide 0.05 % oint Apply to affected area. melatonin 1 mg chew Take by mouth. Ojrdqbi-Orzpjbcboykxh-Fspqwwja (EXCEDRIN) 250-250-65 mg per tablet Take 1 tablet by mouth every 6 hours as needed. levothyroxine (SYNTHROID) 50 mcg tablet take 1 tablet by mouth every morning ON AN EMPTY STOMACH FOR THYROID vitamin B complex (B COMPLEX ORAL) Take by mouth. No current facility-administered medications on file prior to visit. Social History Tobacco Use Smoking status: Former Smokeless tobacco: Never Tobacco comments: 1PPD x 8-10 years Vaping Use Vaping Use: Never used Substance Use Topics Alcohol use: No Comment: drank some in the past Drug use: Not Currently Types: Marijuana Comment: remote marijuana ALLERGIES Allergen Reactions Banana GI Upset bloating Review of Systems: ENT: denies loss of hearing, vertigo Vision: denies + blurring vison Cardiopulmonary: denies chest pain, palpitations Respiratory: denies shortness of breath GI: denies recent nausea, vomiting, diarrhea, + constipation : denies incontinence Sleep: + issues with sleeping (RBD) Musculoskeletal: denies + weakness, + joint ache/pain Back/spine: denies + low back or cervical pains Neuro: Denies + tremors, loss of feeling, + dizziness, seizure, blackout, paresthesia, facial paresthesia, facial weakness, + difficulty in speech (soft speech), slurring of words, dysarthria, dysphagia, memory loss, headache Physical Exam: 02/21/23 1337 BP: 122/85 Pulse: 81 Resp: 18 Temp: 36.4 C (97.6 F) SpO2: 97% Weight: 57.5 kg (126 lb 12.8 oz) Orthostatic VS: Sitting 107/72, HR 77 Standing 102/70, HR 88 and Patient is alert and in no distress. Dress is appropriate. Mood is appropriate Breathing appears regular and unstressed Neurologic examination: Cognitively intact. No deficits. No formal MMSE performed. CN: Pupils equal and reactive to light, extraocular movements intact with no nystagmus, face is symmetric with no facial droop, hearing intact bilaterally, symmetric evaluation of the soft palate, tongue is midline with no deviation, shoulder shrug is symmetric. Motor exam shows 5/5 strength symmetric through the upper and lower extremities in all groups tested. MUSCLES Lower Extremity RIGHT LEFT Hip Flexion 4/5 5/5 Hip Extension 5/5 5/5 BiFem (Knee Flex) 5/5 5/5 Quads (Knee Ext) 5/5 5/5 Gastroc (Plantflx) 5/5 5/5 TibAnt (Dorsiflx) 5/5 5/5 Sensory intact to light touch in all extremities. Vibratory sensation is decreased in BLE to level of knee. Per previous appointment: Pinprick sensation decreased to below the knee bilaterally. Temperature sensation decreased to all extremities (report that this feels like prickling sensation). Deep tendon reflexes are decreased symmetrically at the biceps, brachioradialis, triceps, patella, and achilles bilaterally. Coordination: No dysmetria on finger to nose. No tremors noted. No drift seen. DAYDAY of pronation and supination, finger tapping intact. Hand tap decreased bilaterally. Toe tappingdecreased on R. Rigidity to RUE. No tremors. Shuffling gait with short stride. Stooped posture. Decreased arm swing on R. Six step turn and rises from chair well. No retropulsion. Decreased facial expression noted. Labs/studies: Component Latest Ref Rng & Units 01/08/2020 02/05/2022 Protein, Total 6.3 - 8.0 g/dL 7.9 Albumin 3.9 - 4.9 g/dL 4.6 Calcium 8.5 - 10.2 mg/dL 9.9 Bilirubin, Total 0.2 - 1.3 mg/dL 0.7 Alkaline Phosphatase 38 - 113 U/L 73 AST 14 - 40 U/L 26 ALT 10 - 54 U/L 18 Glucose 74 - 99 mg/dL 98 BUN 9 - 24 mg/dL 14 Creatinine 0.73 - 1.22 mg/dL 0.84 Sodium 136 - 144 mmol/L 139 Potassium 3.7 - 5.1 mmol/L 4.2 Chloride 97 - 105 mmol/L 103 CO2 22 - 30 mmol/L 23 Anion Gap 9 - 18 mmol/L 13 eGFR >=60 mL/min/1.73m 90 WBC 3.70 - 11.00 k/uL 6.35 RBC 4.20 - 6.00 m/uL 4.59 Hemoglobin 13.0 - 17.0 g/dL 15.0 Hematocrit 39.0 - 51.0 % 46.3 MCV 80.0 - 100.0 fL 100.9 (H) MCH 26.0 - 34.0 pg 32.7 MCHC 30.5 - 36.0 g/dL 32.4 RDW-CV 11.5 - 15.0 % 12.6 Platelet Count 150 - 400 k/uL 288 MPV 9.0 - 12.7 fL 10.2 Absolute nRBC <0.01 k/uL <0.01 Cholesterol, Total <200 mg/dL 180 Triglyceride <150 mg/dL 70 HDL Cholesterol >39 mg/dL 51 LDL Cholesterol <100 mg/dL 115 (H) Non HDL Cholesterol <130 mg/dL 129 Fasting Time hrs 12 VLDL Cholesterol <30 mg/dL 14 TC:HDL Ratio <5.10 3.53 LDL:HDL Ratio <2.54 2.25 TSH 0.270 - 4.200 mIU/L 2.940 Vitamin B12 232-1,245 pg/mL 876 Folate >4.7 ng/mL >20.0 Vitamin B1 (TDP), Whole Blood 84.3 - 213.3 nmol/L 175.8 Assessment/Plan: R25.9 Parkinsonian features (primary encounter diagnosis) M54.50 Lumbar pain R26.81 Unstable gait Comment: Patient previously seen for unstable gait and lumbar pain. Notable hx includes RBD, DDD oflumbar spine, and hypothyroidism. At time of previous appointment he reported persistent lumbar pain and gait instability. Appointment was scheduled with pain management for relief of low back pain. He has since had follow-up at which time he received injections, however, he reports minimal improvement in symptoms. It was advised he attend physical therapy and he reports that he is following withphysical therapist who specializes in PD. He will follow-up with pain management after completion of PT. In addition, given rigidity, stooped posture, shuffling gait, he was started on Sinemet 1/2 tablet 25-100mg 3 times daily with meals with goal of increasing to full tablet if no SE. Today, he reportshe has not take medication with exception of a few times as he is worried about SE. Again, discussed side effects and will start medication at lower dose than discussed at last appointment. We will begin with 1/2 tablet BID and if tolerating well then increase to TID. After 2 weeks if no SE he willthen increase to a full tablet. Recommend continuing to work with physical therapy as scheduled. Would also recommend continuing touse assistive ambulation device for stability and continue home exercises. H53.2 Double vision R42 Vertigo Comment: Today, pt reporting double vision as well as dizziness. He states that double vision has been present for roughly 2 years, however, he notes that he had severe episode of double vision roughly 2 months ago. Sx present bilaterally and do not improve upon closure of one eye. In addition, he reports episodes of dizziness. Initially, description of events seem to be related to lightheadedness, however during OV he experienced symptoms and describes them as a possible vertigo. Orthostatic VS obtained and unremarkable. At this time, concern for possible posterior circulation involvement and MRI brain ordered to evaluate for infarct. Office Visit on 02/21/23 MRI BRAIN WO DEBRAON Patsy Soto APRN.JEZ I spent a total of 45 minutes on the date of the service which included preparing to see the patient, [id number] patient care, completing clinical documentation, obtaining and/or reviewing separately obtained history, performing a medically appropriate examination, counseling and educating the pat ient/family/caregiver, and ordering medications, tests, or procedures. documented in this encounter[facility]04-[facility] Instructions* Patient Instructions* Patsy Soto APRN.JEZ - 12/27/2022 2:33 PM EDT Start Sinemet 1/2 tablet three times daily (breakfast, lunch, dinner time). After two weeks if no side effects increase to a full tablet three times daily. documented in this encounterFort [facility]04-[facility] History of Present illness Narrative* Patsy Soto APRN.CNP - 12/27/2022 1:45 PM EDT Images from the original note were not included. [facility] [place] Follow-up Visit Follow-up note December 27, 2022 HPI: Mr. Healy presents today for a follow-up visit. Per his previous visit on 05/08/22: R25.9 Parkinsonian features (primary encounter diagnosis) M54.50 Lumbar pain R26.81 Unstable gait Comment: Patient previously seen for unstable gait and lumbar pain. Gait concerns began roughly oneyear ago, however, lumbar pain has been present for over two years. Pain radiates from the low backinto his anterior thighs, with R>L. Notable hx includes RBD, DDD of lumbar spine, and hypothyroidism. On exam, weakness is noted with R hip flexion. On previous exam, rigidity to RUE, shuffling gait, stooped posture, and decreased R arm swing noted. As previously discussed, given exam findings as well as hx of RBD and subjective report of soft speech and handwriting changes, there is concern for possible PD. Discussed starting Sinemet. However, at time of previous appointment pt's concerns were focused on managing lumbar pain and he started gabapentin 100mg TID. Today he denies SE or concerns regarding medication. Again, discussed options regarding medication including starting Sinemet verses adjusting gabapentin. Of note, he has had follow up with pain management in interim with recommendation for injections, however, he is uncertain he would like to proceed with this option. Instead will titrate gabapentin to 300mg TID (will increase with 300mg QHS and titrate up q3 days to [id number] TID). He will notify the office after titration complete if any SE or concerns. If no issues with medication will consider starting Sinemet at that time. Will have him follow up in the office in 4-6 weeks. Today feels his gait is unstable. States back pain is his main issue. Pain radiates around his backinto his hips and down to his knees. States he has a variety of other odds and ends. States he has junk in his throat, drooling, vision changes, itchy eyes. Feels like his skin in his legs is bothersome. Saw dermatology and was given medication but states this did not help. Still having itching and burning. Has been using medicationtogether with massage with no relief. Has not seen spine medicine. Last pain management appt was in June. Has appointment later today to further discuss injections. Has had multiple injections without relief of symptoms. Seeing Dr. Casas. States walking is a chore. Feels like he shuffles his feet to a degree especially when first getting up. Has not tripped. Does not feel like he is freezing. Difficulty moving RLE. Difficulty moving mostly when he first gets up. Frequently has to clear his throat. Feels voice is frail. Hx of RBD. Has changes in handwriting. No difficulty buttoning or zipping. Some difficulty when eating. Feels tremor starts as he nears his mouth. States he has a little bit of intention tremors. Unsure if he has recently lost weight. Denies n/t. States he has had numbness yesterday or the day before. Mostly localized to the thumb and first few fingers and dorsal surface of hand. No longer taking gabapentin. States he noticed no change with medication so he stopped taking it. States he stays up until 5am. Will sleep until 2-4pm. Has gone to PD group in the past as well as PT. PAST MEDICAL HISTORY Diagnosis Date Hypothyroidism (acquired) age 68 PAST SURGICAL HISTORY Procedure Laterality Date TONSILLECTOMY AND ADENOIDECTOMY HX Current Outpatient Medications on File Prior to Visit Medication Sig Triamcinolone Acetonide 0.05 % oint Apply to affected area. melatonin 1 mg chew Take by mouth. Rwmymgt-Rcblpbszhrzdx-Mdqbodel (EXCEDRIN) 250-250-65 mg per tablet Take 1 tablet by mouth every 6 hours as needed. levothyroxine (SYNTHROID) 50 mcg tablet take 1 tablet by mouth every morning ON AN EMPTY STOMACH FOR THYROID vitamin B complex (B COMPLEX ORAL) Take by mouth. No current facility-administered medications on file prior to visit. Social History Tobacco Use Smoking status: Former Smokeless tobacco: Never Tobacco comments: 1PPD x 8-10 years Vaping Use Vaping Use: Never used Substance Use Topics Alcohol use: No Comment: drank some in the past Drug use: Not Currently Types: Marijuana Comment: remote marijuana ALLERGIES Allergen Reactions Banana GI Upset bloating Review of Systems: ENT: denies loss of hearing, vertigo Vision: denies + blurring vison Cardiopulmonary: denies chest pain, palpitations Respiratory: denies shortness of breath GI: denies recent nausea, vomiting, diarrhea, + constipation : denies incontinence Sleep: + issues with sleeping (RBD) Musculoskeletal: denies + weakness, + joint ache/pain Back/spine: denies + low back or cervical pains Neuro: Denies + tremors, loss of feeling, dizziness, seizure, blackout, paresthesia, facial paresthesia, facial weakness, + difficulty in speech (soft speech), slurring of words, dysarthria, dysphagia, memory loss, headache Physical Exam: 12/27/22 1337 12/27/22 1351 12/27/22 1352 12/27/22 1353 BP: 151/91 Orthostatic BP: 162/90 149/91 160/89 Pulse: (!) 58 Orthostatic Pulse: 61 73 60 Resp: 18 Temp: 36.7 C (98.1 F) SpO2: 99% Weight: 59 kg (130 lb) Patient is alert and in no distress. Dress is appropriate. Mood is appropriate Breathing appears regular and unstressed Neurologic examination: Cognitively intact. No deficits. No formal MMSE performed. CN: Pupils equal and reactive to light, extraocular movements intact with no nystagmus, face is symmetric with no facial droop, hearing intact bilaterally, symmetric evaluation of the soft palate, tongue is midline with no deviation, shoulder shrug is symmetric. Motor exam shows 5/5 strength symmetric through the upper and lower extremities in all groups tested. MUSCLES Lower Extremity RIGHT LEFT Hip Flexion 4+/5 5/5 Hip Extension 5/5 5/5 BiFem (Knee Flex) 5/5 5/5 Quads (Knee Ext) 5/5 5/5 Gastroc (Plantflx) 5/5 5/5 TibAnt (Dorsiflx) 5/5 5/5 Sensory intact to light touch in all extremities. Vibratory sensation is decreased in BLE to level of knee. Pinprick sensation decreased to below the knee bilaterally. Temperature sensation decreasedto all extremities (report that this feels like prickling sensation). Deep tendon reflexes are decreased symmetrically at the biceps, brachioradialis, triceps, patella, and achilles bilaterally. Coordination: No dysmetria on finger to nose. No tremors noted. No drift seen. DAYDAY of pronation and supination, finger tapping intact. Hand tap decreased bilaterally. Toe tappingdecreased on R. Rigidity to RUE. No tremors. Shuffling gait with short stride. Stooped posture. Decreased arm swing on R. Eight step turn and rises from chair well. Decreased facial expression noted. Labs/studies: Component Latest Ref Rng & Units 01/08/2020 02/05/2022 Protein, Total 6.3 - 8.0 g/dL 7.9 Albumin 3.9 - 4.9 g/dL 4.6 Calcium 8.5 - 10.2 mg/dL 9.9 Bilirubin, Total 0.2 - 1.3 mg/dL 0.7 Alkaline Phosphatase 38 - 113 U/L 73 AST 14 - 40 U/L 26 ALT 10 - 54 U/L 18 Glucose 74 - 99 mg/dL 98 BUN 9 - 24 mg/dL 14 Creatinine 0.73 - 1.22 mg/dL 0.84 Sodium 136 - 144 mmol/L 139 Potassium 3.7 - 5.1 mmol/L 4.2 Chloride 97 - 105 mmol/L 103 CO2 22 - 30 mmol/L 23 Anion Gap 9 - 18 mmol/L 13 eGFR >=60 mL/min/1.73m 90 WBC 3.70 - 11.00 k/uL 6.35 RBC 4.20 - 6.00 m/uL 4.59 Hemoglobin 13.0 - 17.0 g/dL 15.0 Hematocrit 39.0 - 51.0 % 46.3 MCV 80.0 - 100.0 fL 100.9 (H) MCH 26.0 - 34.0 pg 32.7 MCHC 30.5 - 36.0 g/dL 32.4 RDW-CV 11.5 - 15.0 % 12.6 Platelet Count 150 - 400 k/uL 288 MPV 9.0 - 12.7 fL 10.2 Absolute nRBC <0.01 k/uL <0.01 Cholesterol, Total <200 mg/dL 180 Triglyceride <150 mg/dL 70 HDL Cholesterol >39 mg/dL 51 LDL Cholesterol <100 mg/dL 115 (H) Non HDL Cholesterol <130 mg/dL 129 Fasting Time hrs 12 VLDL Cholesterol <30 mg/dL 14 TC:HDL Ratio <5.10 3.53 LDL:HDL Ratio <2.54 2.25 TSH 0.270 - 4.200 mIU/L 2.940 Vitamin B12 232-1,245 pg/mL 876 Folate >4.7 ng/mL >20.0 Vitamin B1 (TDP), Whole Blood 84.3 - 213.3 nmol/L 175.8 Assessment/Plan: R25.9 Parkinsonian features (primary encounter diagnosis) M54.50 Lumbar pain R26.81 Unstable gait Comment: Patient previously seen for unstable gait and lumbar pain. Notable hx includes RBD, DDD oflumbar spine, and hypothyroidism. Today pt reports persistent lumbar pain and gait instability. At time of last appointment gabapentin dose increased for further management of low back pain. He reports no relief of sx and has since stopped medication. He will be following up with pain management after appointment today. He also expresses interest in starting medication for PD as previously discussed. Exam consistent with that noted at time of previous appointment. Rigidity to RUE, stooped posture, shuffling gait. Exam findings as well as subjective report still suggestive of PD and therefore will begin Sinemet 1/2 tablet 25-100mg TID with meals. Will increase to full tablet TID if no SE after two weeks. For balance, discussed benefit of physical therapy. He defers at this time and would like to revisit at time of follow up appointment. Recommend continuing to use assistive ambulation device for stability and continue home exercises. He will return to the office in 8 weeks for reassessment and to review medication and possible consideration of PT. Patsy Soto APRN.JEZ I spent a total of 50 minutes on the date of the service which included preparing to see the patient, [id number] patient care, completing clinical documentation, obtaining and/or reviewing separately obtained history, performing a medically appropriate examination, counseling and educating the pat ient/family/caregiver, and ordering medications, tests, or procedures. documented in this encounterFort [facility]02-07-[facility]23 History of Present illness Narrative* Basilio Abraham PA-C - 10/30/2022 3:51 PM EST 77 year old male with c/o here for non-healing skin wounds but now identifies no sores. Trying to approach from a global perspective. Asking to check immune system as he has read r/t to multiple lines of immune dysfunction. I confirmed this is true but remains in the theoretical and developmental aspect of treatment. He is insistent on having immunity tested in some way. I tried to explain this is a field of research and there are no confirmed tests for immunity specific to Parkinson's. He brought up articles from the [employer] identifying immunologic role. Brother who checked on him routinely . Sister is not local. Has no real local contacts. Continues very stiff, trying to recover with exercise. No improvement with pain management. HISTORIES FAMILY HISTORY Problem Relation Age of Onset Cancer Mother ? uterine Alcohol/Drug Father esophageal varices Alzheimer's Disease Maternal Grandmother PAST MEDICAL HISTORY Diagnosis Date Hypothyroidism (acquired) age 68 PAST SURGICAL HISTORY Procedure Laterality Date TONSILLECTOMY AND ADENOIDECTOMY HX Social History Tobacco Use Smoking status: Former Smokeless tobacco: Never Tobacco comments: 1PPD x 8-10 years Vaping Use Vaping Use: Never used Substance Use Topics Alcohol use: No Comment: drank some in the past Drug use: Not Currently Types: Marijuana Comment: remote marijuana ACTIVE PROBLEM LIST Acquired Hypothyroidism Ddd (Degenerative Disc Disease), Lumbar Lumbar Foraminal Stenosis Current Outpatient Medications Medication Sig Dispense Refill melatonin 1 mg chew Take by mouth. Azxxyrq-Rkzfemxxzbhgj-Qanmpvrm (EXCEDRIN) 250-250-65 mg per tablet Take 1 tablet by mouth every 6 hours as needed. levothyroxine (SYNTHROID) 50 mcg tablet take 1 tablet by mouth every morning ON AN EMPTY STOMACH FOR THYROID 90 tablet 3 vitamin B complex (B COMPLEX ORAL) Take by mouth. Triamcinolone Acetonide 0.05 % oint Apply to affected area. No current facility-administered medications for this visit. ADVANCE DIRECTIVE DISCUSSION due on 09/23/2022 DEPRESSION ASSESSMENT Never done EXAM: BP 128/80 Pulse (!) 59 Wt 60.8 kg (134 lb) SpO2 99% BMI 18.17 kg/m Pleasant thin adult man with Parkinsonian features in no acute distress. Alert and oriented all spheres. Normal affect and cognition. Speech normal. No deficits to learning or comprehension. Skin warm, dry, pink to lips and nailbeds. Normal turgor. Seems a little more nourished than last check. Respirations regular and unlabored. Chest is normal shape. Lungs are clear to all castaneda with good air exchange through out. HRRR without murmur or gallop. No lifts, heaves, or rubs. Extrem: no clubbing or cyanosis. Edema: none. Extremities are warm and pink with prompt capillary refill. Movements are slow. No discrete tremor. ASSESSMENT/PLAN: 1. Parkinson's syndrome (HCC) - ICD9: 332.0, ICD10: G20 (primary diagnosis) Recommended he discuss with neuro, he wants to speak with neurologist directly. He became agitated when I explained there were no specific blood tests standardized for Parkinson's. He wants immune function checked. Discussed Syn-One testing but I have electronic technologist with it. - ADVANCE CARE PLAN DISCUSSION - IGA BLD - IGE BLD - IGG - IGM 2. Screening for prostate cancer - ICD9: V76.44, ICD10: Z12.5 - Counseled on healthy diet and regular exercise - Risks/benefits of prostate cancer screening discussed. screening PSA ordered - PSA/PROSTSPECAG BRANN Basilio Abraham PA-C documented in this encounterFort [facility]02-01-2023 Miscellaneous Notes* Telephone Encounter - Basilio Newton RN - 10/24/2022 8:16 AM EST Left detailed vm on identified vm with provider's message below. * Telephone Encounter - Basilio Abraham PA-C - 10/23/2022 5:29 PM EST I would need to see him and wounds. There are tests for immunodeficiency but an exam would be necessary to document need and diagnosis. Thanks, Lazarus Abraham PA-C * Telephone Encounter - Aziza Hall - 10/22/2022 2:40 PM EST Patient is wanting to have a lab test for immune system response due to wounds not healing. Please advise patient. documented in this encounterFort [facility]12-01-2022 Miscellaneous Notes* Telephone Encounter - Christal Rhoades Pss - 08/23/2022 9:31 AM EST Left the patient multiple message to call the office or [phone]. The patient returned the call and he doesn't want to schedule an appointment at this time. documented in this encounterFort [facility] Hospital11-23-2022 Miscellaneous Notes* Telephone Encounter - Pradeep Angel LPN - 08/15/2022 2:35 PM EST Referral, demographic info, copy of insurance cards and OV notes/labs faxed to Dr. Rawls's office. * Telephone Encounter - Jackie Weems Pss - 08/15/2022 2:27 PM EST Spoke with patient and he states he is going to see Dr. Rawls. Please fax order to Dr. [facility]. * Telephone Encounter - Pattie Balderrama RN - 08/15/2022 8:34 AM EST VM left for pt to call PCP office for message. Pattie Balderrama RN * Telephone Encounter - Basilio Abraham PA-C - 08/14/2022 4:57 PM EST Consult placed. This is not an issue for rheumatology as we discussed previously. He needs to consult with pain management or spine as previoiusly discusse.d Telephone on 08/14/22 CONSULT TO RHEUM/IMMUN DISEASE Lazarus Pryor PA-C . * Telephone Encounter - Pattie Balderrama RN - 08/14/2022 3:42 PM EST Pt calling and requesting Lazarus Abraham to place a referral order for him to see Dr. Patton-an arthritis specialist at [facility]. If provider agreeable to place order, pt would like order faxed to Dr. Patton's office. Please call pt with update. Thank you. documented in this encounterFort Hamilton Hospital11-08-2022 Miscellaneous Notes* Telephone Encounter - Pradeep Angel LPN - 07/31/2022 9:14 AM EST Order faxed to [facility] [employer] Pradeep Angel LPN * Telephone Encounter - Basilio Abraham PA-C - 07/30/2022 5:29 PM EST Telephone on 07/30/22 CONSULT TO PHYSICAL THERAPY The following approved medication requests have been transmitted electronically. Parkinsonian features (primary encounter diagnosis) Lazarus Pryor PA-C * Telephone Encounter - Pattie Lewis Pss - 07/30/2022 3:45 PM EST Patient is calling requesting an order for PT at [facility] specifically for parkinson's Rebecca Valadez is in charge of this program. documented in this encounterFort Hamilton Hospital10-14-2022 Miscellaneous Notes* Telephone Encounter - Basilio Abraham PA-C - 07/06/2022 5:52 PM EDT Get Medical Advice on 07/06/22 XR HAND GENERAL 3V PA/LAT/OBL LEFT XR WRIST GENERAL 3V PA/LAT/OBL LEFT Lazarus Abraham PA-C documented in this encounterFort Hamilton Hospital10-13-2022 History of Present illness Narrative* Radha Maciel MA - 07/05/2022 3:37 PM EDT Review of Systems Constitutional: Negative for activity change, chills, fever and unexpected weight change. Gastrointestinal: Negative for bowel retention or incontinence Genitourinary: Negative for difficulty urinating. Negative for bladder retention or incontinence Musculoskeletal: Positive for arthralgias, back pain, gait problem, myalgias, neck pain and neck stiffness. Negative for joint swelling. Neurological: Positive for weakness. Negative for numbness and headaches. Psychiatric/Behavioral: Positive for dysphoric mood and sleep disturbance. Negative for suicidal ideas. The patient is not nervous/anxious. * Shell Lewis MD - 07/05/2022 10:11 AM EDT Images from the original note were not included. [facility] Today's Date: 07/05/2022 Last Visit: 05/03/2022 Name: Nava Healy : 1945 Purpose: Follow-up Evaluation Chief complaint: low back pain Interval History: Nava Healy returns today for a follow-up encounter, reporting that since last encounter, the overall pain and functional disability arising from the chief complaint has worsened. Today, he reports that he has new pain in his left thumb and also in the right knee. Regarding medications: The following medication(s) were started or modified: none The following medication(s) were discontinued: none The following medication(s) were continued: Neurontin 100mg TID Overall, the medication(s) have not helped improve pain and ADL's. They are well-tolerated. The following procedures were performed: Right lateral femoral cutaneous nerve under ultrasound guidance - ordered, not scheduled Medial branch blocks bilateral L4-5 and L5-S1 under fluoroscopy x 2, RFA if positive - ordered, notscheduled Physical Therapy or Chiropractics was not prescribed. The following new imaging or diagnostic tests were obtained, with relevant findings reported below: Electrodiagnostic Study was ordered, not scheduled He reports that he has not pursued treatments, as he has concerns that his pain is more systemic. He saw a Neurologist, who increased it to 300mg TID, did not notice any difference, was discontinued.He is also seeing a Chiropractor. Pain Description: Timing: constant Character: burning Primary Location: axial low back Radiation: right > left anterior thigh Exacerbating factors: standing and walking Relieving factors: flexion, sitting Interferes with: physical activity, walking, and social activities The patient denies difficulty with bowel or bladder control, and fevers, chills, or night sweats. He did lose 20 pounds about 6 months ago unintentionally. This stabilized. He has been in discussion with his PCP about this. Notable Events During Course of Treatment: 05/03/2022 - Initial HPI Referred by Basilio Abraham, for evaluation and management of the above- mentioned chief complaint. This has been present for the past many years. The onset of symptoms was not sudden and was without associated trauma. Pain started in the low back, gradually worsened over time, he had to discontinue playing Tennis, Hiking and Biking. He finds that extension and standing upright make the pain worse. Flexion takes some strain off, but this causes pain in the right thigh > left thigh. Treatments prior to initial presentation include the following: Medications (See below), Injections(See below), Modalities (eg. Heat, Ice), Physical Therapy , Chiropractic Full Treatment , Home Exercise Program , and Activity Modification. He saw Dr. Mera and Dr. Henderson last year, reports he had about 8 different injections, including SI joint injections, Epidurals, facet injections, bursal injection (review of records shows an ILESI at L5-S1 in March 2021). He last completed PT (Home-based) November,. Current Status: INTAKE PAIN ASSESSMENT 06/14/2022 07/05/2022 Are you having pain associated with your visit today? No Yes, Provider notified Pain Scales - Verbal (Numeric Rating or Visual Analog Scale) Pain Level - 8 Pain Location - Generalized Description - Burning;Itching;Aching Duration Amount of Time - - Duration Units - Years Frequency - Continuous Intervention/Comfort measure - Reposition;Relaxation;Positioning Comments - - Medications: CURRENT Pain Medications: Opioid Pain Medications: None Date last filled: N/A Quantity filled: N/A How many left: N/A Time most recent dose taken: N/A Non-Opioid Pain Medications: Neurontin 100mg TID - no relief [facility] (OTC) Pain Meds: Excedrin - takes 2 tabs up to BID; helps Compliance: PDMP website checked and validated. All prescriptions have been APPROPRIATELY filled. No suspiciousactivity was identified. by Shell Lewis MD 07/05/2022 Kely , #56 (04/24/2021) Last Drug screen: Not Applicable Risk Assessment: KARIN-7: KARIN - 7 SCORES 02/05/2022 05/03/2022 KARIN-7 Score 0 1 (0-4) minimal anxiety, (5-9) mild anxiety, (10-14) moderate anxiety, (15-21) severe anxiety PHQ-9: PHQ-9 02/05/2022 05/03/2022 Score 1 0 (0-4) minimal depression, (5-9) mild depression, (10-14) moderate depression, (15-19) moderately severe depression, (20-27) severe depression Opioid Risk Tool: Family History of Substance Abuse: Yes Alcohol: 3 - Male Personal History of Substance Abuse: Yes Alcohol: 3 - Yes Age between 16-45: 0 - No History of Pre-Adolescence Sexual Abuse: 0 - No Psychological Disease: 0 - No Risk Total: 6 (0-3, low risk or no risk; 4-7, moderate risk, 8+, high risk) Safety Checklist: Are you taking proper precautions to safe guard your medication? Yes Taking the medications as prescribed? Yes Getting pain medications from another physician? No Obtaining pain medication from another source? No Sharing medications with friends/family? No Quality of life improved as a result of taking these medications? Yes Any side effect with this medication? No Justification for Continued Opioid Care: Adequate analgesia? Yes Aberrant drug seeking behavior? No Adverse reactions? No Medications improve quality of life? Yes Pain Medications Taken TO DATE (for the chief complaint(s)): Membrane Stabilizers: Neurontin (Gabapentin) NSAIDS: Motrin (Ibuprofen) and Mobic (Meloxicam) Opioids: Tylenol #3 and Vicodin or [place] (Hydrocodone) - no relief Muscle Relaxants: none Topicals: none Other Prescription or OTC Pain Medications: Excedrin and Tylenol (Acetaminophen) Anti-depressants: None Non-Pain Meds of Note: None Allergies: ALLERGIES Allergen Reactions Banana GI Upset bloating Diagnostic Studies: Relevant Imaging: Reviewed Personally on today's date, noted above MRI Spine Report No resulted procedures found. MRI Lumbar (OSH) 04/2021: X-ray right hip 11/2021: Mild degenerative changes in the hips. Electrodiagnostic Study (EMG): None Pain Procedures: DATE PROCEDURE IMPROVEMENT None to date at this practice Current Medications, Past Medical History, Past Surgical History, Family History, Social History and Review of Systems: On today's date, noted above, I have confirmed and edited as necessary, the PFSH and ROS obtained by others. Physical Exam: 07/05/22 1542 Pulse: 62 Resp: 16 SpO2: 99% Constitutional:underweight Eyes: Conjunctiva clear. No discharge from eyes Cardiovascular: Appears well perfused Lymphatic: No visible regional lymphadenopathy Skin: No visible rashes or ecchymosis Psychiatric: Full affect, Alert, Pleasant Neuro-Lower: Neural Tension Signs: Negative slump in Bilateral lower limbs Sensation: intact to light touch in the L2-S2 Bilateral lower limb dermatomes Muscle Tone: Normal and symmetric throughout without clonus Strength: Iliopsoas (L2): 5 Left, 5 Right Quadriceps (L3) 5 Left, 5 Right Anterior Tibialis (L4): 5 Left, 5 Right Extensor Hallucis Longus (L5): 5 Left, 5 Right Gastrocnemius (S1): 5 Left, 5 Right Reflexes: Decreased 1+ and symmetric Patellar, Achilles Musculoskeletal-Lower: Inspection: Symmetric without atrophy, flexion posture at rest Palpation: Lumbar Paraspinal Tenderness: Concordant on Bilateral side(s) Paraspinal Spasms: None PSIS Tenderness: None on Bilateral side(s) Greater Trochanter Tenderness: None on Bilateral side(s) Spine Range of Motion: Flexion: Decreased 50% Without end range pain Extension: Decreased 75% With end range pain Combination extension and rotation pain: None Hip Range of Motion: Right Hip: Internal Rotation: Normal; Pain at end range: None External Rotation: Normal; Pain at end range: None Left Hip: Internal Rotation: Normal; Pain at end range: None External Rotation: Normal; Pain at end range: None Sacroiliac Maneuvers: Deferred Diagnoses: (M48.061) Spinal stenosis, lumbar region, without neurogenic claudication (primary encounter diagnosis) (M47.816) Lumbar spondylosis (M54.16) Lumbar radiculopathy (G57.11) Meralgia paresthetica of right side Impression: 77 year old male with significant past medical history for hypothyroidism, who presentswith complaint(s) of axial low back pain, claudication symptoms in bilateral (right > left) lower limbs. Imaging shows foraminal stenosis, but minimal central stenosis. Posture is strongly in flexi on. Axial low back pain is probably facet-mediated, reports having facet injections previously, butby description they were intra-articular with steroid and not diagnostic. He did not follow through with any of his tests. We discussed this today. He is more interested in pursuing systemic conditions at present. He will see Rheum and Neurology and his PCP, following up with me later as needed. Plan: Nava Healy would benefit from the following to reach personal goals for decreasing pain, improving function and work participation, and/or improving quality of life: -Interventional Procedure: Right lateral femoral cutaneous nerve under ultrasound guidance - he will consider Medial branch blocks bilateral L4-5 and L5-S1 under fluoroscopy x 2, RFA if positive - he will consider The risks, benefits, alternative treatment options and prognosis of the procedure were discussed and all of the patient's questions/concerns were addressed to the patient s satisfaction. Patient was advised that they will need a bobcat driver/labor for after the procedure and that if no bobcat driver/labor is available and on site at the time of the procedure, the procedure will be cancelled. For any anticoagulants, the patient was advised on whether to continue or hold for this procedure. The patient expressed understanding and gave verbal consent to proceed. Medication(s): None Additional Studies: Electrodiagnostic Study bilateral lower limb radiculopathy - he may pursue thisoutside our system due to limited transportation capabilities X-ray bilateral knees Referrals: No additional considerations at present Functional Advent: No changes-continue current regimen Depending on response to the above plan, consider: RFA; SPRINT PNS Right lat fem cut n -Follow-up: PRN basis Attribution: In addition to reviewing the information noted above, some elements copied from my most recent clinical note(s), including the physical exam (completed in entirety today), and the impression and plan sections, have been updated where appropriate. All reflect current medical decision making from today's date. Shell Lewis MD, [facility] documented in this encounterFort Hamilton Hospital09-23-2022 Miscellaneous Notes* Telephone Encounter - Basilio Newton RN - 06/15/2022 5:02 PM EDT Patient returned call and given provider's message below with verbalized understanding. Patient reports he plans to see a chiropractor for a couple of weeks and see how that goes, then may add PT. * Telephone Encounter - Desitny Escamilla Ma - 06/15/2022 1:40 PM EDT Left message for patient to return call. Destiny Escamilla Ma * Telephone Encounter - Destiny Escamilla Ma - 06/15/2022 1:26 PM EDT Images from the original note were not included. Basilio Abraham PA-C P Wstr Trina Torre Please advise I placed orders for PT in the hope perhaps they could help with postural issues. Willneed scheduled. Thanks, Lazarus Abraham PA-C documented in this encounterFort Hamilton Hospital09-22-2022 History of Present illness Narrative* Baislio Abraham PA-C - 06/14/2022 1:30 PM EDT 77 year old male with c/o states saw a video network engineer who gave him a steroid salve. Got to thinking and wonders if psoriasis is causing back pain: read that it could. Has dry skin on extremities. Not interested in surgery, pain pumps. Fixated on back posture causing leg pain- argues that is is not from spinal stenosis. Kind of circled around issues Daily back pain, limits walking, often has to lay on floor. Indicates thighs with rubbing stating this is where pain radiates. HISTORIES FAMILY HISTORY Problem Relation Age of Onset Cancer Mother ? uterine Alcohol/Drug Father esophageal varices Alzheimer's Disease Maternal Grandmother PAST MEDICAL HISTORY Diagnosis Date Hypothyroidism (acquired) age 68 PAST SURGICAL HISTORY Procedure Laterality Date TONSILLECTOMY AND ADENOIDECTOMY HX Social History Tobacco Use Smoking status: Former Smokeless tobacco: Never Tobacco comments: 1PPD x 8-10 years Vaping Use Vaping Use: Never used Substance Use Topics Alcohol use: No Comment: drank some in the past Drug use: Not Currently Types: Marijuana Comment: remote marijuana ACTIVE PROBLEM LIST Acquired Hypothyroidism Ddd (Degenerative Disc Disease), Lumbar Lumbar Foraminal Stenosis Current Outpatient Medications Medication Sig Dispense Refill Triamcinolone Acetonide 0.05 % oint Apply to affected area. melatonin 1 mg chew Take by mouth. Cndhnmx-Nmmwzjtjpygmq-Tvvjbjer (EXCEDRIN) 250-250-65 mg per tablet Take 1 tablet by mouth every 6 hours as needed. levothyroxine (SYNTHROID) 50 mcg tablet take 1 tablet by mouth every morning ON AN EMPTY STOMACH FOR THYROID 90 tablet 3 vitamin B complex (B COMPLEX ORAL) Take by mouth. gabapentin (NEURONTIN) 300 mg capsule Take 1 capsule by mouth three times daily for 90 days. (Patient not taking: Reported on 06/14/2022) 90 capsule 2 No current facility-administered medications for this visit. COVID-19 VACCINE(5 - Booster for Pfizer series) due on 04/05/2022 INFLUENZA(1) due on 05/24/2022 EXAM: BP 110/64 Pulse 67 Resp 14 Wt 59.9 kg (132 lb) SpO2 99% BMI 17.90 kg/m Pleasant adult man with parkinsonian traits in no acute distress. Alert and oriented all spheres. Normal affect and cognition. Speech normal. No deficits to learning or comprehension. Skin warm, dry, pink to lips and nailbeds. Normal turgor.. Has reddish scaly patches consistent with seborrhea glabellar and eyebrows, similar reddish scaly areas on scalp suggestive more of seborrhea but posterior scalp line may have some reddish plaques with larger flakes, hair growing through areas densely. Respirations regular and unlabored. Continues shuffling gait, parkinsonian facies, slight tremor Extrem: no clubbing or cyanosis. Edema: none. Extremities are warm and pink with prompt capillary refill. ASSESSMENT/PLAN: 1. Psoriasis - ICD9: 696.1, ICD10: L40.9 35 minute appointment primarily rehearsing options for evaluation and treatment. As above not interested in surgery. Managing himself at home with great difficulty. 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 - CONSULT TO DERMATOLOGY 2. DDD (degenerative disc disease), lumbar - ICD9: 722.52, ICD10: M51.36 Chronic low back pain NSAIDS haven't helped. - CONSULT TO PHYSICAL THERAPY 3. Lumbar foraminal stenosis - ICD9: 724.02, ICD10: M48.061 - CONSULT TO PHYSICAL THERAPY Basilio Abraham PA-C documented in this encounterFort Hamilton Hospital08-11-2022 NoteHNO ID: [id number] Author: Tammy Reyes MA Service: ? Author Type: Pick And Shovel Man Type: Progress Notes Filed: 05/03/2022 10:43 AM Note Text: Review of Systems Constitutional: Negative for activity change, chills, fever and unexpected weight change. Gastrointestinal: Negative for bowel retention or incontinence Genitourinary: Negative for difficulty urinating. Negative for bladder retention or incontinence Musculoskeletal: Positive for arthralgias, back pain, gait problem and myalgias. Negative for joint swelling, neck pain and neck stiffness. Neurological: Positive for weakness and numbness. Negative for headaches. Psychiatric/Behavioral: Negative for dysphoric mood, sleep disturbance and suicidal ideas. The patient is not nervous/anxious.[facility] Miscellaneous Notes* Telephone Encounter - Serena Pat - 05/03/2022 10:57 AM EDT 1.Are you diabetic No 2. Are you on any blood thinners? No 3. Are you taking any aspirin? No 4. Have you had any recent imaging done on your body part that's being injected? Yes MRI and Xray 5. Do you have any allergies to latex? No 6. Do you have any allergies to seafood? No 7. Do you have any allergies to shellfish? No 8. Do you have any allergies to x-ray dye? No 9. Are you taking Xanax for the procedure? No 10. Have you done physical therapy in the last year? Yes If yes, When and Where? Home physical therapy (Medical Records Release needs to be signed.) 11. Were the pre-procedure instructions explained to the patient? Yes 12. Do you have a pacemaker? No 13. Do you have an internal stimulator of any kind? No If yes, please bring the remote with you to your procedure visit. 14. Have you received the COVID-19 Vaccine? Yes. If yes, date(s) received: explained to patient (Patient should not receive a procedure including steroids 14 days prior to their first dose of theCOVID vaccine. They should not receive any procedure containing steroids in the time frame between their 1st and 2nd doses of the COVID vaccine. They should not receive a procedure containing steroids 14 days after their 2nd dose of the COVID vaccine.) Serena Moreno documented in this encounterFort Hamilton Hospital08-11-2022 History of Present illness Narrative* Tammy Reyes MA - 05/03/2022 10:07 AM EDT Review of Systems Constitutional: Negative for activity change, chills, fever and unexpected weight change. Gastrointestinal: Negative for bowel retention or incontinence Genitourinary: Negative for difficulty urinating. Negative for bladder retention or incontinence Musculoskeletal: Positive for arthralgias, back pain, gait problem and myalgias. Negative for jointswelling, neck pain and neck stiffness. Neurological: Positive for weakness and numbness. Negative for headaches. Psychiatric/Behavioral: Negative for dysphoric mood, sleep disturbance and suicidal ideas. The patient is not nervous/anxious. * Shell Lewis MD - 05/03/2022 8:05 AM EDT Images from the original note were not included. [facility] Today's Date: 05/03/2022 Last Visit: N/A Name: Nava Healy : 1945 Purpose: New Patient Consultation Chief complaint: low back pain Thank you, Basilio Abraham, for referring Nava Healy for evaluation and management options for the chief complaint(s) noted below. Initial HPI: (Obtained on 05/03/2022) Nava Healy is a 77 year old male, who presents having been referred by Basilio Abraham, for evaluation and management of the above-mentioned chief complaint. This has been present for the past many years. The onset of symptoms was not sudden and was withoutassociated trauma. Pain started in the low back, gradually worsened over time, he had to discontinue playing Tennis, Hiking and Biking. He finds that extension and standing upright make the pain worse. Flexion takes some strain off, but this causes pain in the right thigh > left thigh. Treatments prior to initial presentation include the following: Medications (See below), Injections(See below), Modalities (eg. Heat, Ice), Physical Therapy , Chiropractic Full Treatment , Home Exercise Program , and Activity Modification. He saw Dr. Mera and Dr. Henderson last year, reports he had about 8 different injections, including SI joint injections, Epidurals, facet injections, bursal injection (review of records shows an ILESI at L5-S1 in March 2021). He last completed PT (Home-based) November,. Pain Description: Timing: constant Character: burning Primary Location: axial low back Radiation: right > left anterior thigh Exacerbating factors: standing and walking Relieving factors: flexion, sitting Interferes with: physical activity, walking, and social activities The patient denies difficulty with bowel or bladder control, and fevers, chills, or night sweats. He did lose 20 pounds about 6 months ago unintentionally. This stabilized. He has been in discussion with his PCP about this. Current Status: INTAKE PAIN ASSESSMENT 04/05/2022 05/03/2022 Are you having pain associated with your visit today? Yes, Provider notified Yes, Provider notified Pain Scales Verbal (Numeric Rating or Visual Analog Scale) Verbal (Numeric Rating or Visual Analog Scale) Pain Level 8 8 Pain Location Thigh-Right Back-Lower Description Stabbing;Burning Raw;Burning Duration Amount of Time 2 - Duration Units Years Years Frequency - Continuous Intervention/Comfort measure Medication Relaxation;Reposition;Medication Comments 8 injections as well with 2 different pain specialists - Medications: CURRENT Pain Medications: Opioid Pain Medications: None Date last filled: N/A Quantity filled: N/A How many left: N/A Time most recent dose taken: N/A Non-Opioid Pain Medications: Neurontin 100mg TID - no relief Isux-rnt-gcmfevt (OTC) Pain Meds: Excedrin - takes 2 tabs up to BID; helps Compliance: PDMP website checked and validated. All prescriptions have been APPROPRIATELY filled. No suspiciousactivity was identified. by Shell Lewis MD 05/03/2022 Kely , #56 (04/24/2021) Last Drug screen: Not Applicable Risk Assessment: KARIN-7: KARIN - 7 SCORES 02/05/2022 05/03/2022 KARIN-7 Score 0 1 (0-4) minimal anxiety, (5-9) mild anxiety, (10-14) moderate anxiety, (15-21) severe anxiety PHQ-9: PHQ-9 02/05/2022 05/03/2022 Score 1 0 (0-4) minimal depression, (5-9) mild depression, (10-14) moderate depression, (15-19) moderately severe depression, (20-27) severe depression Opioid Risk Tool: Family History of Substance Abuse: Yes Alcohol: 3 - Male Personal History of Substance Abuse: Yes Alcohol: 3 - Yes Age between 16-45: 0 - No History of Pre-Adolescence Sexual Abuse: 0 - No Psychological Disease: 0 - No Risk Total: 6 (0-3, low risk or no risk; 4-7, moderate risk, 8+, high risk) Safety Checklist: Are you taking proper precautions to safe guard your medication? Yes Taking the medications as prescribed? Yes Getting pain medications from another physician? No Obtaining pain medication from another source? No Sharing medications with friends/family? No Quality of life improved as a result of taking these medications? Yes Any side effect with this medication? No Justification for Continued Opioid Care: Adequate analgesia? Yes Aberrant drug seeking behavior? No Adverse reactions? No Medications improve quality of life? Yes Pain Medications Taken TO DATE (for the chief complaint(s)): Membrane Stabilizers: Neurontin (Gabapentin) NSAIDS: Motrin (Ibuprofen) and Mobic (Meloxicam) Opioids: Tylenol #3 and Vicodin or [place] (Hydrocodone) - no relief Muscle Relaxants: none Topicals: none Other Prescription or OTC Pain Medications: Excedrin and Tylenol (Acetaminophen) Anti-depressants: None Non-Pain Meds of Note: None Allergies: ALLERGIES Allergen Reactions Banana GI Upset bloating Diagnostic Studies: Relevant Imaging: Reviewed Personally on today's date, noted above MRI Spine Report No resulted procedures found. MRI Lumbar ([facility]) 04/2021: X-ray right hip 11/2021: Mild degenerative changes in the hips. Electrodiagnostic Study (EMG): None Pain Procedures: DATE PROCEDURE IMPROVEMENT None to date at this practice Current Medications, Past Medical History, Past Surgical History, Family History, Social History and Review of Systems: On today's date, noted above, I have confirmed and edited as necessary, the PFSH and ROS obtained by others. Physical Exam: 05/03/22 1011 Pulse: 67 Resp: 16 SpO2: 99% Constitutional:underweight Eyes: Conjunctiva clear. No discharge from eyes Cardiovascular: Appears well perfused Lymphatic: No visible regional lymphadenopathy Skin: No visible rashes or ecchymosis Psychiatric: Full affect, Alert, Pleasant Neuro-Lower: Neural Tension Signs: Negative slump in Bilateral lower limbs Sensation: intact to light touch in the L2-S2 Bilateral lower limb dermatomes Muscle Tone: Normal and symmetric throughout without clonus Strength: Iliopsoas (L2): 5 Left, 5 Right Quadriceps (L3) 5 Left, 5 Right Anterior Tibialis (L4): 5 Left, 5 Right Extensor Hallucis Longus (L5): 5 Left, 5 Right Gastrocnemius (S1): 5 Left, 5 Right Reflexes: Decreased 1+ and symmetric Patellar, Achilles Musculoskeletal-Lower: Inspection: Symmetric without atrophy, flexion posture at rest Palpation: Lumbar Paraspinal Tenderness: Concordant on Bilateral side(s) Paraspinal Spasms: None PSIS Tenderness: None on Bilateral side(s) Greater Trochanter Tenderness: None on Bilateral side(s) Spine Range of Motion: Flexion: Decreased 50% Without end range pain Extension: Decreased 75% With end range pain Combination extension and rotation pain: None Hip Range of Motion: Right Hip: Internal Rotation: Normal; Pain at end range: None External Rotation: Normal; Pain at end range: None Left Hip: Internal Rotation: Normal; Pain at end range: None External Rotation: Normal; Pain at end range: None Sacroiliac Maneuvers: Deferred Diagnoses: (M47.816) Lumbar spondylosis (primary encounter diagnosis) (M48.061) Spinal stenosis, lumbar region, without neurogenic claudication (M54.16) Lumbar radiculopathy Impression: 77 year old male with significant past medical history for hypothyroidism, who presentswith complaint(s) of axial low back pain, claudication symptoms in bilateral (right > left) lower limbs. Imaging shows foraminal stenosis, but minimal central stenosis. Posture is strongly in flexi on. Axial low back pain is probably facet-mediated, reports having facet injections previously, butby description they were intra-articular with steroid and not diagnostic. Plan: Nava Healy would benefit from the following to reach personal goals for decreasing pain, improving function and work participation, and/or improving quality of life: -Interventional Procedure: Right lateral femoral cutaneous nerve unde ultrasound guidance Medial branch blocks bilateral L4-5 and L5-S1 under fluoroscopy x 2, RFA if positive The risks, benefits, alternative treatment options and prognosis of the procedure were discussed and all of the patient's questions/concerns were addressed to the patient s satisfaction. Patient was advised that they will need a bobcat driver/labor for after the procedure and that if no bobcat driver/labor is available and on site at the time of the procedure, the procedure will be cancelled. For any anticoagulants, the patient was advised on whether to continue or hold for this procedure. The patient expressed understanding and gave verbal consent to proceed. Medication(s): Continue Neurontin 100mg TID Additional Studies: Electrodiagnostic Study bilateral lower limb radiculopathy Referrals: No additional considerations at present Functional Advent: No changes-continue current regimen Depending on response to the above plan, consider: RFA; SPRINT PNS Right lat fem cut n -Follow-up: 2 months Attribution: In addition to reviewing the information noted above, some elements copied from my most recent clinical note(s), including the physical exam (completed in entirety today), and the impression and plan sections, have been updated where appropriate. All reflect current medical decision making from today's date. Shell Lewis MD, [facility], [facility] documented in this encounterFort Hamilton Hospital08-11-2022 NoteHNO ID: [id number] Author: Shell Lewis MD Service: ? Author Type: Physician Type: Progress Notes Filed: 05/03/2022 10:43 AM Note Text: [facility] Today's Date: 05/03/2022 Last Visit: N/A Name: Nava Healy : 1945 Purpose: New Patient Consultation Chief complaint: low back pain Thank you, Basilio Abraham, for referring Nava Healy for evaluation and management options for the chief complaint(s) noted below. Initial HPI: (Obtained on 05/03/2022) Nava Healy is a 77 year old male, who presents having been referred by Basilio Abraham, for evaluation and management of the above-mentioned chief complaint. This has been present for the past many years. The onset of symptoms was not sudden and was without associated trauma. Pain started in the low back, gradually worsened over time, he had to discontinue playing Tennis, Hiking and Biking. He finds that extension and standing upright make the pain worse. Flexion takes some strain off, but this causes pain in the right thigh > left thigh. Treatments prior to initial presentation include the following: Medications (See below), Injections (See below), Modalities (eg. Heat, Ice), Physical Therapy , Chiropractic Full Treatment , Home Exercise Program , and Activity Modification. He saw Dr. Mera and Dr. Henderson last year, reports he had about 8 different injections, including SI joint injections, Epidurals, facet injections, bursal injection (review of records shows an ILESI at L5-S1 in March 2021). He last completed PT (Home-based) November,. Pain Description: Timing: constant Character: burning Primary Location: axial low back Radiation: right > left anterior thigh Exacerbating factors: standing and walking Relieving factors: flexion, sitting Interferes with: physical activity, walking, and social activities The patient denies difficulty with bowel or bladder control, and fevers, chills, or night sweats. He did lose 20 pounds about 6 months ago unintentionally. This stabilized. He has been in discussion with his PCP about this. Current Status: INTAKE PAIN ASSESSMENT 04/05/2022 05/03/2022 Are you having pain associated with your visit today? Yes, Provider notified Yes, Provider notified Pain Scales Verbal (Numeric Rating or Visual Analog Scale) Verbal (Numeric Rating or Visual Analog Scale) Pain Level 8 8 Pain Location Thigh-Right Back-Lower Description Stabbing;Burning Raw;Burning Duration Amount of Time 2 - Duration Units Years Years Frequency - Continuous Intervention/Comfort measure Medication Relaxation;Reposition;Medication Comments 8 injections as well with 2 different pain specialists - Medications: CURRENT Pain Medications: Opioid Pain Medications: None Date last filled: N/A Quantity filled: N/A How many left: N/A Time most recent dose taken: N/A Non-Opioid Pain Medications: Neurontin 100mg TID - no relief Wcqx-elk-wmodplo (OTC) Pain Meds: Excedrin - takes 2 tabs up to BID; helps Compliance: PDMP website checked and validated. All prescriptions have been APPROPRIATELY filled. No suspicious activity was identified. by Shell Lewis MD 05/03/2022 Kely 5/325, #56 (04/24/2021) Last Drug screen: Not Applicable Risk Assessment: KARIN-7: KARIN - 7 SCORES 02/05/2022 05/03/2022 KARIN-7 Score 0 1 (0-4) minimal anxiety, (5-9) mild anxiety, (10-14) moderate anxiety, (15-21) severe anxiety PHQ-9: PHQ-9 02/05/2022 05/03/2022 Score 1 0 (0-4) minimal depression, (5-9) mild depression, (10-14) moderate depression, (15-19) moderately severe depression, (20-27) severe depression Opioid Risk Tool: Family History of Substance Abuse: Yes Alcohol: 3 - Male Personal History of Substance Abuse: Yes Alcohol: 3 - Yes Age between 16-45: 0 - No History of Pre-Adolescence Sexual Abuse: 0 - No Psychological Disease: 0 - No Risk Total: 6 (0-3, low risk or no risk; 4-7, moderate risk, 8+, high risk) Safety Checklist: Are you taking proper precautions to safe guard your medication? Yes Taking the medications as prescribed? Yes Getting pain medications from another physician? No Obtaining pain medication from another source? No Sharing medications with friends/family? No Quality of life improved as a result of taking these medications? Yes Any side effect with this medication? No Justification for Continued Opioid Care: Adequate analgesia? Yes Aberrant drug seeking behavior? No Adverse reactions? No Medications improve quality of life? Yes Pain Medications Taken TO DATE (for the chief complaint(s)): Membrane Stabilizers: Neurontin (Gabapentin) NSAIDS: Motrin (Ibuprofen) and Mobic (Meloxicam) Opioids: Tylenol #3 and Vicodin or [place] (Hydrocodone) - no relief Muscle Relaxants: none Topicals: none Other Prescription or OTC Pain Medications: Excedrin and Tylenol (Acetaminophen) Anti-depressants: None Non-Pain Meds (more content not included)...[facility] 03-08-2022 Instructions* Patient Instructions* Basilio Abraham PA-C - 03/08/2022 4:24 PM EDT [place]- You have mild to moderate foraminal stenosis multiple levels. Usually this is a davila management issue and you are schedule in [place] at the [facility] 04/05/2022 with MAMMA LOGIST Nikki Soto with Dr. Salvador Vargas neurologist. You have another consult with Dr. Shell Lewis pain management also at the [facility]. If you want to see a spine surgeon, Dr. Fabiano Peng at [facility], or Dr. Jimmy Mackenzie with [place] [facility]. I can send a consult to either of them. Meloxicam daily: This is less likely but can cause stomach symptoms including ulceration, bleeding,nausea, pain, and diarrhea. Make sure to take it with food. If you are known to have allergy to anti-inflamatories medications, or have known kidney disease, make sure we know this before you take the medication. documented in this encounterFort Hamilton Hospital06-16-2022 History of Present illness Narrative* Basilio Abraham PA-C - 03/08/2022 4:20 PM EDT 76 year old male with c/o here for follow up Has not completed consults to spine. Wants to stay in [place]. Offered Dr. Jimmy Mackenzie [place] [facility], Fabiano Peng [facility] Neuro intake 04/05/22 Pain management 05/03/22 Taking Exedrin 1-2 tabs once a day. Second or third doses don't seem to help. Last labs: Appointment on 02/05/2022 Component Date Value WBC 02/05/2022 6.35 RBC 02/05/2022 4.59 Hemoglobin 02/05/2022 15.0 Hematocrit 02/05/2022 46.3 MCV 02/05/2022 100.9 (A) MCH 02/05/2022 32.7 MCHC 02/05/2022 32.4 RDW-CV 02/05/2022 12.6 Platelet Count 02/05/2022 288 MPV 02/05/2022 10.2 Absolute nRBC 02/05/2022 <0.01 Protein, Total 02/05/2022 7.9 Albumin 02/05/2022 4.6 Calcium, Total 02/05/2022 9.9 Bilirubin, Total 02/05/2022 0.7 Alkaline Phosphatase 02/05/2022 73 AST 02/05/2022 26 ALT 02/05/2022 18 Glucose 02/05/2022 98 BUN 02/05/2022 14 Creatinine 02/05/2022 0.84 Sodium 02/05/2022 139 Potassium 02/05/2022 4.2 Chloride 02/05/2022 103 CO2 02/05/2022 23 Anion Gap 02/05/2022 13 Estimated Glomerular Joel* 02/05/2022 90 TSH 02/05/2022 2.940 Vitamin B12 02/05/2022 876 Folate 02/05/2022 >20.0 Vitamin B1 (Thiamine dip* 02/05/2022 175.8 Right hip pain like meralgia paresthetica Leans back to pop back which often feels better. HISTORIES FAMILY HISTORY Problem Relation Age of Onset Cancer Mother ? uterine Alcohol/Drug Father esophageal varices Alzheimer's Disease Maternal Grandmother PAST MEDICAL HISTORY Diagnosis Date Hypothyroidism (acquired) age 68 PAST SURGICAL HISTORY Procedure Laterality Date TONSILLECTOMY AND ADENOIDECTOMY HX Social History Tobacco Use Smoking status: Former Smoker Smokeless tobacco: Never Used Tobacco comment: 1PPD x 8-10 years Vaping Use Vaping Use: Never used Substance Use Topics Alcohol use: No Comment: drank some in the past Drug use: Not Currently Types: Marijuana Comment: remote marijuana ACTIVE PROBLEM LIST Acquired Hypothyroidism Ddd (Degenerative Disc Disease), Lumbar Lumbar Foraminal Stenosis Current Outpatient Medications Medication Sig Dispense Refill vitamin B complex (B COMPLEX ORAL) Take by mouth. levothyroxine (SYNTHROID) 50 mcg tablet take 1 tablet by mouth every morning ON AN EMPTY STOMACH FOR THYROID 90 tablet 3 Gqynglc-Klnofwioflcql-Kfjzhavv (EXCEDRIN) 250-250-65 mg per tablet Take 1 tablet by mouth every 6 hours as needed. No current facility-administered medications for this visit. There are no preventive care reminders to display for this patient. EXAM: BP 120/74 Pulse 66 Resp 16 Wt 58.5 kg (129 lb) SpO2 99% BMI 17.50 kg/m Pleasant thin adult male, stable from last time. In no acute distress. Alert and oriented all spheres. Normal affect and cognition. Speech normal. No deficits to learning or comprehension. Skin warm, dry, pink to lips and nailbeds. Normal turgor. Respirations regular and unlabored. HEENT: NCAT. No scleral icterus or conjunctival injection. TM's clear. Nose and oropharynx free from injection or lesion. Oral membranes moist and pink. No cervical lymph nodes. Thyroid non-tender, no masses, or enlargement. Carotids pulses 2+/4+ without bruits. No JVD with HOB at 30 degrees. Chest is normal shape. Lungs are clear to all castaneda with good air exchange through out. HRRR without murmur or gallop. No lifts, heaves, or rubs. Extrem: no clubbing or cyanosis. Edema: none. Extremities are warm and pink with prompt capillary refill. ASSESSMENT/PLAN: 1. DDD (degenerative disc disease), lumbar - ICD9: 722.52, ICD10: M51.36 (primary diagnosis) 2. Lumbar foraminal stenosis - ICD9: 724.02, ICD10: M48.061 Essentially unchanged from last visit. Patient need follow-up for anticipated consults which did not take place. Again we reviewed mild to moderate foraminal stenosis which is more of a pain management issue, hasconsult in place. Patient is still somewhat focused on the idea of seeing neurosurgery which I suggested might be a secondary consult if pain management is not successful. 3. Underweight - ICD9: 783.22, ICD10: R63.6 Maintaining current weight. Did place him in contact with adult services but states that he makes too much money to benefit. 4. Parkinsonian features - ICD9: 781.0, ICD10: R25.9 Outstanding neuro consult. 5. Levoscoliosis - ICD9: 737.39, ICD10: M41.80 Continue to exercise, stretch. Basilio Abraham PA-C documented in this encounterFort Hamilton Hospital05-19-2022 Miscellaneous Notes* Telephone Encounter - HA Levin - 02/08/2022 1:37 PM EDT Sw called and spoke with patient to clarify what type of home care assistance he needs. Patient reports he is in need of help with cooking, laundry, washing dishes, running the sweeper. Patient reports he is not in need of any help with personal care. Sw noted [place] and [facility] offer home care services for hourly cost. Sw will send patient that information. Sw and patient also discussed [facility] [employer] and patient states that he is open to referral to their agency to see about any resource help through [employer]. Sw will refer patient to [employer]. Sw will also mail patient [facility] Older Adult Resource Guide with listing of community social service and home care agency information. Will also include home delivered meal agency options. * Telephone Encounter - Basilio Abraham PA-C - 02/08/2022 1:[address] consult for assessment. Cale would be able help? He is a retired chiropractor, lives alone, significant decline in weight and activity. Thanks! Telephone on 02/07/22 [facility] ThanksLazarus PA-C * Telephone Encounter - Cielo Tavarez RN - 02/07/2022 2:55 PM EDT Pt called in and reports that he had talked with provider about getting HH to help around the house. Pt would like provider to help him get a referral for this. Please call and advise. documented in this encounterFort Hamilton Hospital05-17-2022 Miscellaneous Notes* Telephone Encounter - Saranya Piedra - 02/06/2022 12:54 PM EDT Called and LVM for patient to return call and schedule with Catrachita Mehta APRN.JEZ or at [facility]. * Telephone Encounter - Gail Franco - 02/06/2022 11:15 AM EDT Attempt #1 to contact patient to schedule with Lazarus Abraham. [facility]. * Telephone Encounter - Destiny Escamilla Ma - 02/06/2022 10:30 AM EDT Images from the original note were not included. Basilio Abraham PA-C P tr Trina Torre Please schedule f/u in next 4-6 weeks and consult to spine- we talked about it but I didn't place orders. Thanks, Lazarus Abraham PA-C documented in this encounterFort Hamilton Hospital05-16-2022 History of Present illness Narrative* Basilio Abraham PA-C - 02/05/2022 3:20 PM EDT 76 year old male with c/o Feels stomach is getting compressed from posture Has been seeing Dr. Mera and Dr. Morton for injections: at least 10 without improvement. REM sleep disorder, sleep walking Takes melatonin and ericka every night- not rouble with sleep disorder since. Trying to get more serious about exercise. Feels this will keep him from losing ground. Concerned about tremors when muscles are stressed- asking about Parkinson's. Wants: good balance, good strength, and to walk upright. No ETOH, marijuana or other drugs. Expresses concern for living will surrogate due to caring from multiple stray cats- feeds them outside. No contact with feces. HISTORIES FAMILY HISTORY Problem Relation Age of Onset Cancer Mother ? uterine Alcohol/Drug Father esophageal varices Alzheimer's Disease Maternal Grandmother PAST MEDICAL HISTORY Diagnosis Date Hypothyroidism (acquired) age 68 PAST SURGICAL HISTORY Procedure Laterality Date TONSILLECTOMY AND ADENOIDECTOMY HX Social History Tobacco Use Smoking status: Former Smoker Smokeless tobacco: Never Used Tobacco comment: 1PPD x 8-10 years Vaping Use Vaping Use: Never used Substance Use Topics Alcohol use: No Comment: drank some in the past Drug use: Not Currently Types: Marijuana Comment: remote marijuana ACTIVE PROBLEM LIST Acquired Hypothyroidism Ddd (Degenerative Disc Disease), Lumbar Lumbar Foraminal Stenosis Current Outpatient Medications Medication Sig Dispense Refill levothyroxine (SYNTHROID) 50 mcg tablet take 1 tablet by mouth every morning ON AN EMPTY STOMACH FOR THYROID 90 tablet 3 Yqdwygn-Fjxsqiwijwqlv-Tqpduwvd (EXCEDRIN) 250-250-65 mg per tablet Take 1 tablet by mouth every 6 hours as needed. No current facility-administered medications for this visit. DTAP,TDAP,TD(1 - Tdap) Never done SHINGRIX VACCINE(1 of 2) Never done PNEUMOVAX AGE 65 AND OVER WITH 5YR LOOKBACK(1) Never done DEPRESSION SCREENING due on 09/09/2018 ADVANCE DIRECTIVE DISCUSSION Never done COVID-19 VACCINE(4 - Booster for Pfizer series) due on 12/23/2021 EXAM: BP 120/76 Pulse 78 Resp 16 Wt 58.5 kg (129 lb) SpO2 98% BMI 17.50 kg/m Pleasant older man, much thinner from our last interview, in no acute distress. Alert and oriented all spheres. Normal affect and cognition. Speech normal. No deficits to learning or comprehension. Skin warm, dry, pink to lips and nailbeds. Normal turgor. Respirations regular and unlabored. HEENT: NCAT. No scleral icterus or conjunctival injection. TM's clear. Nose and oropharynx free from injection or lesion. Oral membranes moist and pink. No cervical lymph nodes. Thyroid non-tender, no masses, or enlargement. Carotids pulses 2+/4+ without bruits. Chest is normal shape. Lungs are clear to all castaneda with good air exchange through out. HRRR without murmur or gallop. No lifts, heaves, or rubs. Extrem: no clubbing or cyanosis. Edema: none. Extremities are warm and pink with prompt capillary refill. Back with pain right SIJ. Very straight spine. Patient literally threw himself into a perfectly upright position from sitting, but then bent forward saying this position alleviated pain. Neuro: decreased blinking, diminished expression, + cog wheeling, wide based gait. ASSESSMENT/PLAN: 1. Parkinsonian features - ICD9: 781.0, ICD10: R25.9 Discussed complexities of diagnosis, concerns for nutritional status. BMI 17.5 - CONSULT TO NEUROLOGY - CBC - COMP METABOLIC PANEL - TSH BLD - VITAMIN B12 BLOOD - FOLATE SERUM - VITAMIN B1 (THIAMINE), WHOLE BLOOD 2. Underweight - ICD9: 783.22, ICD10: R63.6 Concerned patient is not caring well for himself due to pain. Will follow up with check on home situation. 3. Hypothyroidism, acquired - ICD9: 244.9, ICD10: E03.9 - Instructed patient on importance of taking on an empty stomach either first thing in the morning or at bedtime. Weight decreasing - Behavioral intervention and - Medical nutrition therapy with dietitian - CBC - COMP METABOLIC PANEL - TSH BLD 4. Lumbar foraminal stenosis - ICD9: 724.02, ICD10: M48.061 5. Sacroiliac pain - ICD9: 724.6, ICD10: M53.3 Has not had good result with pain management. Very committed to exercise, naturopathic treatment. Discussed briefly possible consult to spine. - [facility] TO [facility] Basilio Abraham PA-C documented in this encounterFort Hamilton Hospital03-23-2022 History of Present illness Narrative* Alona Leigh, RT(R) - 12/13/2021 2:20 PM EDT Radiology Service Progress Note PATIENT NAME: Nava Healy DATE OF SERVICE: December 13, 2021 TIME: 2:37 PM PATIENT IDENTITY VERIFICATION COMPLETED USING TWO (2) IDENTIFIERS: Name and Date of confirmedby patient verbally. FALL SCREENING: Has the patient had 2 falls in the last year or 1 fall with injury or currently using an Ambulatory Assistive Device (Walker, Cane, Wheelchair, Crutches, etc.)? No PATIENT GENDER DATA: Male PATIENT RELEVANT IMPLANT DATA REVIEWED: Yes RADIOLOGY DEPARTMENT: General X-ray: Exam(s) Completed: Pelvis X-Ray: Pelvis with Hip Right PERIPHERAL IV DATA: Not applicable SIGNED BY: RT Antonino(R) December 13, 2021 2:37 PM documented in this encounterFort Hamilton Hospital06-28-2021 History of Present illness Narrative* Tonya Paige RT(R) - 03/20/2021 6:00 PM EDT Radiology Service Progress Note PATIENT NAME: Nava Healy DATE OF SERVICE: March 20, 2021 TIME: 6:06 PM PATIENT IDENTITY VERIFICATION COMPLETED USING TWO (2) IDENTIFIERS: Name and Date of confirmedby patient verbally. FALL SCREENING: Has the patient had 2 falls in the last year or 1 fall with injury or currently using an Ambulatory Assistive Device (Walker, Cane, Wheelchair, Crutches, etc.)? No PATIENT GENDER DATA: Male PATIENT RELEVANT IMPLANT DATA REVIEWED: Not Applicable RADIOLOGY DEPARTMENT: General X-ray: Exam(s) Completed: Spine X-Ray(s): Lumbar AP / LAT / L5-S1 PERIPHERAL IV DATA: Not applicable SIGNED BY: RT Filomena(R) March 20, 2021 6:06 PM documented in this encounterFort Hamilton HospitalEvalunemours foundation note* Diagnosis Parkinsonian features- Primary Abnormal involuntary movements Underweight Hypothyroidism, acquired Unspecified hypothyroidism Lumbar foraminal stenosis Spinal stenosis, lumbar region, without neurogenic claudication Sacroiliac pain Disorders of sacrum documented in this encounter [facility] note* Diagnosis DDD (degenerative disc disease), lumbar- Primary Degeneration of lumbar or lumbosacral intervertebral disc Lumbar foraminal stenosis Spinal stenosis, lumbar region, without neurogenic claudication Underweight Parkinsonian features Abnormal involuntary movements [facility] Diagnosis DDD (degenerative disc disease), lumbar- Primary Degeneration of lumbar or lumbosacral intervertebral disc Lumbar foraminal stenosis Spinal stenosis, lumbar region, without neurogenic claudication Underweight Parkinsonian features Abnormal involuntary movements Levoscoliosis Other kyphoscoliosis and scoliosis [facility] Diagnosis Acquired hypothyroidism Unspecified hypothyroidism [facility]* Diagnosis Lumbar spondylosis- Primary Lumbosacral spondylosis without myelopathy Spinal stenosis, lumbar region, without neurogenic claudication Lumbar radiculopathy Thoracic or lumbosacral neuritis or radiculitis, unspecified Meralgia paresthetica of right side Meralgia paresthetica Parkinsonian features- Primary Abnormal involuntary movements Lumbar pain Lumbago Unstable gait Abnormality of gait [facility] Diagnosis Psoriasis- Primary Other psoriasis DDD (degenerative disc disease), lumbar Degeneration of lumbar or lumbosacral intervertebral disc Lumbar foraminal stenosis Spinal stenosis, lumbar region, without neurogenic claudication [facility]* Diagnosis Spinal stenosis, lumbar region, without neurogenic claudication- Primary Lumbar spondylosis Lumbosacral spondylosis without myelopathy Lumbar radiculopathy Thoracic or lumbosacral neuritis or radiculitis, unspecified Meralgia paresthetica of right side Meralgia paresthetica Primary osteoarthritis of both knees Primary localized osteoarthrosis, lower leg [facility]* Diagnosis Primary osteoarthritis of both knees Primary localized osteoarthrosis, lower leg [facility]* Diagnosis Left hand pain- Primary Pain in limb Left wrist pain Pain in joint, forearm [facility] Diagnosis Parkinsonian features- Primary Abnormal involuntary movements [facility] Diagnosis Parkinsonian features- Primary Abnormal involuntary movements [facility]* Diagnosis Lumbar foraminal stenosis- Primary Spinal stenosis, lumbar region, without neurogenic claudication DDD (degenerative disc disease), lumbar Degeneration of lumbar or lumbosacral intervertebral disc [facility]* Diagnosis Onset Date Resolution Status Arthritis of carpometacarpal (CMC) joint of left thumb noneactive Osteoarthritis of carpometac arpal joint of left thumb acute [facility] Work Phone: Evaluation note* Diagnosis Parkinson's syndrome (HCC)- Primary Paralysis agitans Screening for prostate cancer Special screening for malignant neoplasm of prostate [facility] Diagnosis Parkinsonian features- Primary Abnormal involuntary movements Lumbar pain Lumbago Unstable gait Abnormality of gait [facility] Diagnosis Parkinsonian features- Primary Abnormal involuntary movements Lumbar pain Lumbago Unstable gait Abnormality of gait Transient cerebral ischemia, unspecified type Double vision Diplopia Vertigo Dizziness and giddiness [facility] noteNo assessment [facility] Work [facility]: Evaluation note* Diagnosis Myalgia- Primary Mylagia and myositis, unspecified Polyarthralgia Pain in joint, multiple sites Lumbar foraminal stenosis Spinal stenosis, lumbar region, without neurogenic claudication DDD (degenerative disc disease), lumbar Degeneration of lumbar or lumbosacral intervertebral disc Poor diet Unspecified nutritional deficiency Vitamin D deficiency Unspecified vitamin D deficiency Underweight Acquired hypothyroidism Unspecified hypothyroidism Parkinson's syndrome (HCC) Paralysis agitans [facility] Diagnosis Screening for diabetes mellitus- Primary [facility]* Diagnosis Transient cerebral ischemia, unspecified type documented in this encounter [facility] note* Diagnosis Parkinsonian features- Primary Abnormal involuntary movements Unstable gait Abnormality of gait Generalized weakness Other malaise and fatigue Myalgias Fasciculation Abnormal involuntary movements Chronic midline low back pain without sciatica Lightheadedness Dizziness and giddiness Blurred vision Other specified visual disturbances [facility]* Diagnosis Onset Date Resolution Status Degenerative scoliosis acute Osteoporosis acute Parkinsons disease [facility] Work Phone: Evaluation note* Diagnosis Parkinsonian features- Primary Abnormal involuntary movements Unstable gait Abnormality of gait Generalized weakness Other malaise and fatigue Myalgias Fasciculations Abnormal involuntary movements Chronic midline low back pain without sciatica Acquired hypothyroidism Unspecified hypothyroidism Involution of toenail Visual changes Unspecified visual disturbance [facility] Diagnosis Lumbar foraminal and canal stenosis moderate-severe L4, L5- Primary Spinal stenosis, lumbar region, without neurogenic claudication Parkinson's disease with dyskinesia and fluctuating manifestations (HCC) Acquired hypothyroidism Unspecified hypothyroidism Underweight Chronic pain syndrome Age-related physical debility Senility without mention of psychosis [facility]* Diagnosis 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 Acquired hypothyroidism Unspecified hypothyroidism Palpitations Restless legs Restless legs syndrome (RLS) Pruritus, unspecified Family hx of aortic aneurysm Family history of other cardiovascular diseases Screening for prostate cancer Special screening for malignant neoplasm of prostate [facility] Diagnosis Generalized weakness- Primary Other malaise and fatigue Abnormal finding of blood chemistry, unspecified [facility] Diagnosis Acute midline low back pain with right-sided sciatica [facility]* Diagnosis Acquired hypothyroidism Unspecified hypothyroidism [facility] Diagnosis 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 Lumbar foraminal stenosis Spinal stenosis, lumbar region, without neurogenic claudication Encounter for immunization Need for other specified prophylactic vaccination against single bacterial disease [facility] Diagnosis Nonrheumatic mitral valve regurgitation- Primary [facility]* Diagnosis Acquired hypothyroidism Unspecified hypothyroidism [facility]* Diagnosis Parkinson's disease without dyskinesia, unspecified whether manifestations fluctuate (HCC)- Primary Unstable gait Abnormality of gait Generalized weakness Other malaise and fatigue Myalgias Lightheadedness Dizziness and giddiness Lumbar pain Lumbago Parkinsonian features Abnormal involuntary movements [facility]* Diagnosis Acquired hypothyroidism- Primary Unspecified hypothyroidism Vitamin D deficiency Unspecified vitamin D deficiency Generalized weakness Other malaise and fatigue Other chronic pain Parkinson's disease with dyskinesia and fluctuating manifestations (HCC) Weight loss Loss of weight [facility]* Diagnosis Weight loss- Primary Loss of weight Other chronic pain Drooling Disturbance of salivary secretion [facility] Diagnosis Chronic pain syndrome- Primary Weight loss Loss of weight Lumbar foraminal stenosis Spinal stenosis, lumbar region, without neurogenic claudication [facility]* Diagnosis Parkinsonian features- Primary Abnormal involuntary movements Chronic pain syndrome Lumbar foraminal stenosis Spinal stenosis, lumbar region, without neurogenic claudication Weight loss Loss of weight documented in this encounter [facility] for referral (narrative)* Diagnostic Procedure Only (Routine) - Closed Specialty Diagnoses / Procedures Referred By Contac t Referred To Contact XR IMAGING Diagnoses Primary osteoarthritis of both knees Procedures XR KNEE GENERAL 4V AP BOTH/PA BOTH/LAT/MERC RIGHT RADIOLOGIC EXAM KNEE COMPLETE 4/MORE VIEWS Shell Lewis MD [address] [place] [address] Xr Imaging Referral ID Status Reason Start Date Expiration Date V isits Requested Visits Authorized [id number] Closed Auto-Generate d Referral 07/05/2022 08/04/2023 1 1 * Diagnostic Procedure Only (Routine) - Pending Review Specialty Diagnoses / Procedures Referred By Contac t Referred To Contact XR IMAGING Diagnoses Primary osteoarthritis of both knees Procedures XR KNEE GENERAL 4V AP BOTH/PA BOTH/LAT/MERC LEFT RADIOLOGIC EXAM KNEE COMPLETE 4/MORE VIEWS Shell Lewis MD [address] [place] [address] Xr Imaging Referral ID Status Reason Start Date Expiration Date Visits Requested Visits Authorized [id number] Pending Review Auto-Generat ed Referral 08/04/2023 1 1 [facility] for referral (narrative)* Diagnostic Procedure Only (Routine) - Closed Specialty Diagnoses / Procedures Referred By Contac t Referred To Contact XR IMAGING Diagnoses Primary osteoarthritis of both knees Procedures XR KNEE GENERAL 4V AP BOTH/PA BOTH/LAT/MERC RIGHT RADIOLOGIC EXAM KNEE COMPLETE 4/MORE VIEWS Shell Lewis MD [address] [place] [address] Xr Imaging Referral ID Status Reason Start Date Expiration Date V isits Requested Visits Authorized [id number] Closed Auto-Generate d Referral 07/05/2022 08/04/2023 1 1 [facility] for referral (narrative)* Diagnostic Procedure Only (Routine) - Pending Review Specialty Diagnoses / Procedures Referred By Contac t Referred To Contact XR IMAGING Diagnoses Left hand pain Left wrist pain Procedures XR WRIST GENERAL 3V PA/LAT/OBL LEFT RADEX WRIST COMPLETE MINIMUM 3 VIEWS Basilio Abraham PA-C [address] [place] [address] Xr Imaging Referral ID Status Reason Start Date Expiration Date Visits Requested Visits Authorized [id number] Pending Review Auto-Generat ed Referral 2 08/05/2023 1 1 * Diagnostic Procedure Only (Routine) - Pending Review Specialty Diagnoses / Procedures Referred By Contac t Referred To Contact XR IMAGING Diagnoses Left hand pain Left wrist pain Procedures XR HAND GENERAL 3V PA/LAT/OBL LEFT RADEX HAND MINIMUM 3 VIEWS Basilio Abraham PA-C [address] [place] [address] Xr Imaging Referral ID Status Reason Start Date Expiration Date Visits Requested Visits Authorized [id number] Pending Review Auto-Generat ed Referral 2 08/05/2023 1 1 [facility] for referral (narrative)* Diagnostic Procedure Only (Routine) - Authorized Specialty Diagnoses / Procedures Referred By Contac t Referred To Contact US IMAGING Diagnoses Family hx of aortic aneurysm Procedures US SCREENING FOR AAA US ABDOMINAL AORTA REAL TIME SCREEN STUDY AAA Viola Phelps, JENY [address] [place] [address] [place] [address] Referral ID Status Reason Start Date Expiration Date Visits Requested Visits Authorized [id number] Authorized Auto-Generat ed Referral 04/06/2024 05/06/2025 1 1 * Outpatient Procedure (Routine) - Authorized Specialty Diagnoses / Procedures Referred By Contac t Referred To Contact [facility]ART [facility] VASCULAR OXNARD Diagnoses Palpitations Procedures ECHO ECHO TTHRC R-T 2D W/WOM-MODE COMPL SPEC&COLR D Viola Phelps APRN.[employer] [address] [place] [address] [facility]ascular [address] [address] Referral ID Status Reason Start Date Expiration Date Visits Requested Visits Authorized [id number] Authorized Auto-Generat ed Referral 04/06/2024 04/06/2025 1 1 * Outpatient Procedure (Routine) - New Request Specialty Diagnoses / Procedures Referred By Marieac t Referred To Contact [facility]ASCULAR OXNARD Diagnoses Palpitations Procedures ECG COMPLETE ECG ROUTINE ECG W/LEAST 12 LDS W/I&R Viola Phelps APRN.[employer] [address] [place] [address] [facility] [address] [address] Referral ID Status Reason Start Date Expiration Date Visits Requested Visits Authorized [id number] New Request Auto-Generat ed Referral 04/06/2024 04/06/2025 1 1 [facility] for visit Narrative* Diagnostic Procedure Only (Routine) - Closed Specialty Diagnoses / Procedures Referred By Contac t Referred To Contact XR IMAGING Diagnoses Primary osteoarthritis of both knees Procedures XR KNEE GENERAL 4V AP BOTH/PA BOTH/LAT/MERC RIGHT RADIOLOGIC EXAM KNEE COMPLETE 4/MORE VIEWS Shell Lewis MD [facility] [place] [place] [address] Xr Imaging Referral ID Status Reason Start Date Expiration Date V isits Requested Visits Authorized [id number] Closed Auto-Generate d Referral 07/05/2022 08/04/2023 1 1 [facility] Summary Purpose Family History No Family History Records Found Relationship Condition Age at Onset Recorded Date/T julia Not Specified Arthritis Unknown Malignant neoplasm Unknown Advance Directives No Advanced Directives Records FoundNo Advanced Directives Records FoundNo Advanced Directives Records FoundNo Advanced Directives Records Found Reason for Referral Specialty Diagnoses / Procedures Referred By Contac t Referred To Contact [facility] [place] Diagnoses Lumbar foraminal stenosis Sacroiliac pain Procedures CONSULT TO [facility] OFFICE/OUTPATIENT [facility] 60-74 MINUTES Basilio Abraham PA-C [address] [place] [address] Referral ID Status Reason Start Date Expiration Date Visits Requested Visits Authorized [id number] Authorized PCP Requested Referral 02/05/2022 02/05/2023 1 1 Specialty Diagnoses / Procedures Referred By Contac t Referred To Contact Neurology Diagnoses Parkinsonian features Procedures CONSULT TO NEUROLOGY OFFICE/OUTPATIENT [facility] 60-74 MINUTES Basilio Abraham PA-C [address] [place] [address] Referral ID Status Reason Start Date Expiration Date Visits Requested Visits Authorized [id number] Authorized PCP Requested Referral 02/05/2022 02/05/2023 1 1 Specialty Diagnoses / Procedures Referred By Contac t Referred To Contact [facility] Diagnoses DDD (degenerative disc disease), lumbar Lumbar foraminal stenosis Procedures CONSULT TO PHYSICAL THERAPY PHYSICAL THERAPY EVALUATION HIGH COMPLEX 45 MINS Basilio Abraham PA-C [address] [place] [address] [facility] [place] [address] [place] [address] Referral ID Status Reason Start Date Expiration Date Visits Requested Visits Authorized [id number] Authorized PCP Requested Referral Auto-Generate d Referral 06/15/2022 06/15/2023 99 99 Specialty Diagnoses / Procedures Referred By Contac t Referred To Contact Dermatology Diagnoses Psoriasis Procedures CONSULT TO DERMATOLOGY Basilio Abraham PA-C [address] [place] [address] Referral ID Status Reason Start Date Expiration Date Visits Requested Visits Authorized [id number] Ref Not Required PCP Requested Referral 06/14/2022 06/14/2023 1 1 Specialty Diagnoses / Procedures Referred By Contac t Referred To Contact Neurology Diagnoses Parkinsonian features Procedures CONSULT TO NEUROLOGY OFFICE/OUTPATIENT [facility] 60-74 MINUTES Benton Bhardwaj [employer] [id number] [place] [address] Referral ID Status Reason Start Date Expiration Date Visits Requested Visits Authorized [id number] Authorized PCP Requested Referral 07/25/2022 07/25/2023 1 1 Specialty Diagnoses / Procedures Referred By Contac t Referred To Contact [facility] Diagnoses Parkinsonian features Procedures CONSULT TO PHYSICAL THERAPY PHYSICAL THERAPY EVALUATION HIGH COMPLEX 45 MINS Basilio Abraham PA-C [address] [place] [address] [facility] [place] [address] [place] [address] Referral ID Status Reason Start Date Expiration Date Visits Requested Visits Authorized [id number] Authorized PCP Requested Referral Auto-Generate d Referral 07/30/2022 07/30/2023 99 99 Specialty Diagnoses / Procedures Referred By Contac t Referred To Contact Rheumatology Diagnoses Lumbar foraminal stenosis DDD (degenerative disc disease), lumbar Procedures CONSULT TO RHEUM/IMMUN DISEASE OFFICE/OUTPATIENT [facility] 60-74 MINUTES Basilio Abraham PA-C [address] [place] [address] Referral ID Status Reason Start Date Expiration Date Visits Requested Visits Authorized [id number] Authorized PCP Requested Referral 08/14/2023 1 1 Specialty Diagnoses / Procedures Referred By Contac t Referred To Contact MR IMAGING Diagnoses Transient cerebral ischemia, unspecified type Procedures MRI BRAIN WO IVCON MRI BRAIN BRAIN STEM W/O CONTRAST MATERIAL Patsy Soto, [employer] [address] [place] [address] Mr Imaging Referral ID Status Reason Start Date Expiration Date Visits Requested Visits Authorized [id number] Authorized Auto-Generat ed Referral 02/21/2023 03/22/2024 1 1 Specialty Diagnoses / Procedures Referred By Contac t Referred To Contact MR IMAGING Diagnoses Transient cerebral ischemia, unspecified type Procedures MRI BRAIN WO IVCON MRI BRAIN BRAIN STEM W/O CONTRAST MATERIAL Patsy Soto, [employer] [address] [place] [address] [place] [address] Referral ID Status Reason Start Date Expiration Date V isits Requested Visits Authorized [id number] Closed Auto-Generate d Referral 02/21/2023 03/22/2024 1 1 Specialty Diagnoses / Procedures Referred By Contac t Referred To Contact Ophthalmology Diagnoses Visual changes Procedures CONSULT TO OPHTHALMOLOGY OFFICE/OUTPATIENT [facility] 60 MINUTES Basilio Abraham PA-C [address] [place] [address] Referral ID Status Reason Start Date Expiration Date Visits Requested Visits Authorized [id number] Authorized PCP Requested Referral 12/02/2023 12/01/2024 1 1 Specialty Diagnoses / Procedures Referred By Contac t Referred To Contact Podiatry Diagnoses Involution of toenail Procedures CONSULT TO PODIATRY OFFICE/OUTPATIENT [facility] 60 MINUTES Basilio Abraham PA-C [address] [place] [address] Referral ID Status Reason Start Date Expiration Date Visits Requested Visits Authorized [id number] Authorized PCP Requested Referral 12/02/2023 12/01/2024 1 1 Specialty Diagnoses / Procedures Referred By Contac t Referred To Contact [facility] [place] Diagnoses Lumbar foraminal stenosis Procedures CONSULT TO [facility] OFFICE/OUTPATIENT [facility] 60 MINUTES Viola Phelps, [employer] [address] [place] [address] Referral ID Status Reason Start Date Expiration Date Visits Requested Visits Authorized [id number] Authorized PCP Requested Referral 07/28/2024 07/28/2025 1 1 Chief Complaint and Reason for Visit Chief Complaint Left hand Rm 4 xray LEFT HAND PARKINSON. RX HERE Reason for Visit Arthritis of carpome tacarpal (CMC) joint of left thumb Osteoarthritis of carpometacarpal joint of left thumb Chief Complaint PD/RX W/ PT Chief Complaint LUMBAR SPINE room 2 PARKINSONS DISEASE Reason for Visit Degenerative scolios is Osteoporosis Parkinsons disease Additional Source Comments (unrecognized sect ion and content) No Status Records FoundNo Status Records FoundNo Status Records FoundNo Status Records Found INFORMATION SOURCE (unrecogn ized section and content) DATE CREATED AUTHOR 03/30/2021 [facility] DATE CREATED AUTHOR AUTHOR'S ORGANIZ ATION 05[facility]04/2022 [facility] DATE CREATED AUTHOR AUTHOR'S ORGANIZ ATION 06/13/2024 [facility] DATE CREATED AUTHOR AUTHOR'S ORGANIZ ATION 02/23/2025 [facility] Source Comments (unrecognize d section and content) In the event this informatio n is protected by the Federal Confidentiality of Alcohol and Drug Abuse Patient Records regulations: The Federal rules restrict any use of the information to criminally investigate or prosecute any alcohol or drug abuse patient.[facility] event this information is protected by the Federal Confidentiality of Alcohol and Drug Abuse Patient Records regulations: The Federal rules restrict any use of the information to criminally investigate or prosecute any alcohol or drug abuse patient.[facility] the event this information is protected by the Federal Confidentiality of Alcohol and Drug Abuse Patient Records regulations: The Federal rules restrict any use of the information to criminally investigate or prosecute any alcohol or drug abuse patient.[facility] the event this information is protected by the Federal Confidentiality of Alcohol and Drug Abuse Patient Records regulations: The Federal rules restrict any use of the information to criminally investigate or prosecute any alcohol or drug abuse patient.[facility] the event this information is protected by the Federal Confidentiality of Alcohol and Drug Abuse Patient Records regulations: The Federal rules restrict any use of the information to criminally investigate or prosecute any alcohol or drug abuse patient.[facility] the event this information is protected by the Federal Confidentiality of Alcohol and Drug Abuse Patient Records regulations: The Federal rules restrict any use of the information to criminally investigate or prosecute any alcohol or drug abuse patient.[facility] the event this information is protected by the Federal Confidentiality of Alcohol and Drug Abuse Patient Records regulations: The Federal rules restrict any use of the information to criminally investigate or prosecute any alcohol or drug abuse patient.[facility] the event this information is protected by the Federal Confidentiality of Alcohol and Drug Abuse Patient Records regulations: The Federal rules restrict any use of the information to criminally investigate or prosecute any alcohol or drug abuse patient.[facility] the event this information is protected by the Federal Confidentiality of Alcohol and Drug Abuse Patient Records regulations: The Federal rules restrict any use of the information to criminally investigate or prosecute any alcohol or drug abuse patient.[facility] the event this information is protected by the Federal Confidentiality of Alcohol and Drug Abuse Patient Records regulations: The Federal rules restrict any use of the information to criminally investigate or prosecute any alcohol or drug abuse patient.[facility] the event this information is protected by the Federal Confidentiality of Alcohol and Drug Abuse Patient Records regulations: The Federal rules restrict any use of the information to criminally investigate or prosecute any alcohol or drug abuse patient.[facility] the event this information is protected by the Federal Confidentiality of Alcohol and Drug Abuse Patient Records regulations: The Federal rules restrict any use of the information to criminally investigate or prosecute any alcohol or drug abuse patient.[facility] HospitalIn the event this information is protected by the Federal Confidentiality of Alcohol and Drug Abuse Patient Records regulations: The Federal rules restrict any use of the information to criminally investigate or prosecute any alcohol or drug abuse patient.[facility] HospitalIn the event this information is protected by the Federal Confidentiality of Alcohol and Drug Abuse Patient Records regulations: The Federal rules restrict any use of the information to criminally investigate or prosecute any alcohol or drug abuse patient.[facility] HospitalIn the event this information is protected by the Federal Confidentiality of Alcohol and Drug Abuse Patient Records regulations: The Federal rules restrict any use of the information to criminally investigate or prosecute any alcohol or drug abuse patient.[facility] HospitalIn the event this information is protected by the Federal Confidentiality of Alcohol and Drug Abuse Patient Records regulations: The Federal rules restrict any use of the information to criminally investigate or prosecute any alcohol or drug abuse patient.[facility] HospitalIn the event this information is protected by the Federal Confidentiality of Alcohol and Drug Abuse Patient Records regulations: The Federal rules restrict any use of the information to criminally investigate or prosecute any alcohol or drug abuse patient.[facility] HospitalIn the event this information is protected by the Federal Confidentiality of Alcohol and Drug Abuse Patient Records regulations: The Federal rules restrict any use of the information to criminally investigate or prosecute any alcohol or drug abuse patient.[facility] HospitalIn the event this information is protected by the Federal Confidentiality of Alcohol and Drug Abuse Patient Records regulations: The Federal rules restrict any use of the information to criminally investigate or prosecute any alcohol or drug abuse patient.[facility] HospitalIn the event this information is protected by the Federal Confidentiality of Alcohol and Drug Abuse Patient Records regulations: The Federal rules restrict any use of the information to criminally investigate or prosecute any alcohol or drug abuse patient.[facility] HospitalIn the event this information is protected by the Federal Confidentiality of Alcohol and Drug Abuse Patient Records regulations: The Federal rules restrict any use of the information to criminally investigate or prosecute any alcohol or drug abuse patient.[facility] HospitalIn the event this information is protected by the Federal Confidentiality of Alcohol and Drug Abuse Patient Records regulations: The Federal rules restrict any use of the information to criminally investigate or prosecute any alcohol or drug abuse patient.[facility] HospitalIn the event this information is protected by the Federal Confidentiality of Alcohol and Drug Abuse Patient Records regulations: The Federal rules restrict any use of the information to criminally investigate or prosecute any alcohol or drug abuse patient.[facility] HospitalIn the event this information is protected by the Federal Confidentiality of Alcohol and Drug Abuse Patient Records regulations: The Federal rules restrict any use of the information to criminally investigate or prosecute any alcohol or drug abuse patient.[facility] HospitalIn the event this information is protected by the Federal Confidentiality of Alcohol and Drug Abuse Patient Records regulations: The Federal rules restrict any use of the information to criminally investigate or prosecute any alcohol or drug abuse patient.[facility] HospitalIn the event this information is protected by the Federal Confidentiality of Alcohol and Drug Abuse Patient Records regulations: The Federal rules restrict any use of the information to criminally investigate or prosecute any alcohol or drug abuse patient.[facility] HospitalIn the event this information is protected by the Federal Confidentiality of Alcohol and Drug Abuse Patient Records regulations: The Federal rules restrict any use of the information to criminally investigate or prosecute any alcohol or drug abuse patient.[facility] HospitalIn the event this information is protected by the Federal Confidentiality of Alcohol and Drug Abuse Patient Records regulations: The Federal rules restrict any use of the information to criminally investigate or prosecute any alcohol or drug abuse patient.[facility] HospitalIn the event this information is protected by the Federal Confidentiality of Alcohol and Drug Abuse Patient Records regulations: The Federal rules restrict any use of the information to criminally investigate or prosecute any alcohol or drug abuse patient.[facility] HospitalIn the event this information is protected by the Federal Confidentiality of Alcohol and Drug Abuse Patient Records regulations: The Federal rules restrict any use of the information to criminally investigate or prosecute any alcohol or drug abuse patient.[facility] HospitalIn the event this information is protected by the Federal Confidentiality of Alcohol and Drug Abuse Patient Records regulations: The Federal rules restrict any use of the information to criminally investigate or prosecute any alcohol or drug abuse patient.[facility] HospitalIn the event this information is protected by the Federal Confidentiality of Alcohol and Drug Abuse Patient Records regulations: The Federal rules restrict any use of the information to criminally investigate or prosecute any alcohol or drug abuse patient.[facility] HospitalIn the event this information is protected by the Federal Confidentiality of Alcohol and Drug Abuse Patient Records regulations: The Federal rules restrict any use of the information to criminally investigate or prosecute any alcohol or drug abuse patient.[facility] HospitalIn the event this information is protected by the Federal Confidentiality of Alcohol and Drug Abuse Patient Records regulations: The Federal rules restrict any use of the information to criminally investigate or prosecute any alcohol or drug abuse patient.[facility] HospitalIn the event this information is protected by the Federal Confidentiality of Alcohol and Drug Abuse Patient Records regulations: The Federal rules restrict any use of the information to criminally investigate or prosecute any alcohol or drug abuse patient.[facility] HospitalIn the event this information is protected by the Federal Confidentiality of Alcohol and Drug Abuse Patient Records regulations: The Federal rules restrict any use of the information to criminally investigate or prosecute any alcohol or drug abuse patient.[facility] HospitalIn the event this information is protected by the Federal Confidentiality of Alcohol and Drug Abuse Patient Records regulations: The Federal rules restrict any use of the information to criminally investigate or prosecute any alcohol or drug abuse patient.[facility] HospitalIn the event this information is protected by the Federal Confidentiality of Alcohol and Drug Abuse Patient Records regulations: The Federal rules restrict any use of the information to criminally investigate or prosecute any alcohol or drug abuse patient.[facility] HospitalIn the event this information is protected by the Federal Confidentiality of Alcohol and Drug Abuse Patient Records regulations: The Federal rules restrict any use of the information to criminally investigate or prosecute any alcohol or drug abuse patient.[facility] HospitalIn the event this information is protected by the Federal Confidentiality of Alcohol and Drug Abuse Patient Records regulations: The Federal rules restrict any use of the information to criminally investigate or prosecute any alcohol or drug abuse patient.[facility] HospitalIn the event this information is protected by the Federal Confidentiality of Alcohol and Drug Abuse Patient Records regulations: The Federal rules restrict any use of the information to criminally investigate or prosecute any alcohol or drug abuse patient.[facility] HospitalIn the event this information is protected by the Federal Confidentiality of Alcohol and Drug Abuse Patient Records regulations: The Federal rules restrict any use of the information to criminally investigate or prosecute any alcohol or drug abuse patient.[facility] the event this information is protected by the Federal Confidentiality of Alcohol and Drug Abuse Patient Records regulations: The Federal rules restrict any use of the information to criminally investigate or prosecute any alcohol or drug abuse patient.[facility] HospitalIn the event this information is protected by the Federal Confidentiality of Alcohol and Drug Abuse Patient Records regulations: The Federal rules restrict any use of the information to criminally investigate or prosecute any alcohol or drug abuse patient.[facility] HospitalIn the event this information is protected by the Federal Confidentiality of Alcohol and Drug Abuse Patient Records regulations: The Federal rules restrict any use of the information to criminally investigate or prosecute any alcohol or drug abuse patient.[facility] HospitalIn the event this information is protected by the Federal Confidentiality of Alcohol and Drug Abuse Patient Records regulations: The Federal rules restrict any use of the information to criminally investigate or prosecute any alcohol or drug abuse patient.[facility] HospitalIn the event this information is protected by the Federal Confidentiality of Alcohol and Drug Abuse Patient Records regulations: The Federal rules restrict any use of the information to criminally investigate or prosecute any alcohol or drug abuse patient.[facility] HospitalIn the event this information is protected by the Federal Confidentiality of Alcohol and Drug Abuse Patient Records regulations: The Federal rules restrict any use of the information to criminally investigate or prosecute any alcohol or drug abuse patient.[facility] HospitalIn the event this information is protected by the Federal Confidentiality of Alcohol and Drug Abuse Patient Records regulations: The Federal rules restrict any use of the information to criminally investigate or prosecute any alcohol or drug abuse patient.[facility] HospitalIn the event this information is protected by the Federal Confidentiality of Alcohol and Drug Abuse Patient Records regulations: The Federal rules restrict any use of the information to criminally investigate or prosecute any alcohol or drug abuse patient.[facility] HospitalIn the event this information is protected by the Federal Confidentiality of Alcohol and Drug Abuse Patient Records regulations: The Federal rules restrict any use of the information to criminally investigate or prosecute any alcohol or drug abuse patient.[facility] HospitalIn the event this information is protected by the Federal Confidentiality of Alcohol and Drug Abuse Patient Records regulations: The Federal rules restrict any use of the information to criminally investigate or prosecute any alcohol or drug abuse patient.[facility] HospitalIn the event this information is protected by the Federal Confidentiality of Alcohol and Drug Abuse Patient Records regulations: The Federal rules restrict any use of the information to criminally investigate or prosecute any alcohol or drug abuse patient.[facility] HospitalIn the event this information is protected by the Federal Confidentiality of Alcohol and Drug Abuse Patient Records regulations: The Federal rules restrict any use of the information to criminally investigate or prosecute any alcohol or drug abuse patient.[facility] HospitalIn the event this information is protected by the Federal Confidentiality of Alcohol and Drug Abuse Patient Records regulations: The Federal rules restrict any use of the information to criminally investigate or prosecute any alcohol or drug abuse patient.[facility] HospitalIn the event this information is protected by the Federal Confidentiality of Alcohol and Drug Abuse Patient Records regulations: The Federal rules restrict any use of the information to criminally investigate or prosecute any alcohol or drug abuse patient.[facility] HospitalIn the event this information is protected by the Federal Confidentiality of Alcohol and Drug Abuse Patient Records regulations: The Federal rules restrict any use of the information to criminally investigate or prosecute any alcohol or drug abuse patient.[facility] HospitalIn the event this information is protected by the Federal Confidentiality of Alcohol and Drug Abuse Patient Records regulations: The Federal rules restrict any use of the information to criminally investigate or prosecute any alcohol or drug abuse patient.[facility] HospitalIn the event this information is protected by the Federal Confidentiality of Alcohol and Drug Abuse Patient Records regulations: The Federal rules restrict any use of the information to criminally investigate or prosecute any alcohol or drug abuse patient.[facility] HospitalIn the event this information is protected by the Federal Confidentiality of Alcohol and Drug Abuse Patient Records regulations: The Federal rules restrict any use of the information to criminally investigate or prosecute any alcohol or drug abuse patient.[facility] HospitalIn the event this information is protected by the Federal Confidentiality of Alcohol and Drug Abuse Patient Records regulations: The Federal rules restrict any use of the information to criminally investigate or prosecute any alcohol or drug abuse patient.[facility] HospitalIn the event this information is protected by the Federal Confidentiality of Alcohol and Drug Abuse Patient Records regulations: The Federal rules restrict any use of the information to criminally investigate or prosecute any alcohol or drug abuse patient.[facility] Care Teams (unrecognized sec tion and content) Sketch Artist Relationship Specialty Start Date End Date Basilio Abraham PA-C [address] [place] [address] PCP - General Family Practice 10/13/18 Sketch Artist Relationship Specialty Start Date End Date Basilio Abraham PA-C [address] [place] [address] PCP - General Family Practice 10/13/18 Sketch Artist Relationship Specialty Start Date End Date Basilio Abraham PA-C [address] [place] [address] PCP - General Family Practice 10/13/18 Sketch Artist Relationship Specialty Start Date End Date Basilio Abraham PA-C [address] [place] [address] PCP - General Family Practice 10/13/18 Sketch Artist Relationship Specialty Start Date End Date Basilio Abraham PA-C [address] [place] [address] PCP - General Family Practice 10/13/18 Sketch Artist Relationship Specialty Start Date End Date Basilio Abraham PA-C [address] [facility] [place] [address] PCP - General Family Practice 10/13/18 Sketch Artist Relationship Specialty Start Date End Date Basilio Abraham PA-C [id number] [facility] [place] [address] PCP - General Family Practice 10/13/18 Sketch Artist Relationship Specialty Start Date End Date Basilio Abraham PA-C [id number] [facility] [place] [address] PCP - General Family Practice 10/13/18 Sketch Artist Relationship Specialty Start Date End Date Basilio Abraham PA-C [address] [facility] [place] [address] PCP - General Family Medicine 10/13/18 Sketch Artist Relationship Specialty Start Date End Date Basilio Abraham PA-C [address] [facility] [place] [address] PCP - General Family Medicine 10/13/18 Sketch Artist Relationship Specialty Start Date End Date Basilio Abraham PA-C [address] [facility] [place] [address] PCP - General Family Medicine 10/13/18 Sketch Artist Relationship Specialty Start Date End Date Basilio Abraham PA-C [address] [facility] [place] [address] PCP - General Family Medicine 10/13/18 Sketch Artist Relationship Specialty Start Date End Date Basilio Abraham PA-C [address] [facility] [place] [address] PCP - General Family Medicine 10/13/18 Sketch Artist Relationship Specialty Start Date End Date Basilio Abraham PA-C [address] [facility] [place] [address] PCP - General Family Medicine 10/13/18 Sketch Artist Relationship Specialty Start Date End Date Basilio Abraham PA-C [address] [place] [address] PCP - General Family Medicine 10/13/18 Sketch Artist Relationship Specialty Start Date End Date Basilio Abraham PA-C [address] [place] [address] PCP - General Family Medicine 10/13/18 Sketch Artist Relationship Specialty Start Date End Date Basilio Abraham PA-C [address] [place] [address] PCP - General Family Medicine 10/13/18 Sketch Artist Relationship Specialty Start Date End Date Basilio Abraham PA-C [address] [place] [address] PCP - General Family Medicine 10/13/18 Sketch Artist Relationship Specialty Start Date End Date Basilio Abraham PA-C [address] [place] [address] PCP - General Family Medicine 10/13/18 Sketch Artist Relationship Specialty Start Date End Date Basilio Abraham PA-C [address] [place] [address] PCP - General Family Medicine 10/13/18 Team Status: Active Member Role Status Dates No Primary Care Physician Family Provider Active HARI Jeff Primary Care Provider Active Team Status: Inactive Member Role Status Dates HARI Jeff Primary Care Provider Active Dr. Jordan Casas MD Attending Provider, Referring Provider Active Sketch Artist Relationship Specialty Start Date End Date Basilio Abraham PA-C [address] [place] [address] PCP - General Family Medicine 10/13/18 Sketch Artist Relationship Specialty Start Date End Date Basilio Abraham PA-C [address] [place], [place] [address] PCP - General Family Medicine 10/13/18 Sketch Artist Relationship Specialty Start Date End Date Basilio Abraham PA-C [address] [place], [place] [address] PCP - General Family Medicine 10/13/18 Sketch Artist Relationship Specialty Start Date End Date Basilio Abraham PA-C [address] [place], [place] [address] PCP - General Family Medicine 10/13/18 Sketch Artist Relationship Specialty Start Date End Date Basilio Abraham PA-C [address] [place], [place] [address] PCP - General Family Medicine 10/13/18 Team Status: Inactive Member Role Status HARI Jeff Primary Care Provider, Referri ng Provider Active Dr. Eddi Larson DO Attending Provider Active Team Status: Inactive Member Role Status Dates HARI Jeff Primary Care Provider Active Dr. Mikael Chapman MD Attending Provider Active Team Status: Inactive Member Role Status Dates HARI Jeff Primary Care Provider Active Dr. Eddi Larson DO Attending Provider, Referring P bambi Active Sketch Artist Relationship Specialty Start Date End Date Basilio Abraham PA-C [address] [place] [address] PCP - General Family Medicine 10/13/18 Sketch Artist Relationship Specialty Start Date End Date Basilio Abraham PA-C [address] [place], [place] [address] PCP - General Family Medicine 10/13/18 Sketch Artist Relationship Specialty Start Date End Date Basilio Abraham PA-C [address] [facility] [place] [address] PCP - General Family Medicine 10/13/18 Sketch Artist Relationship Specialty Start Date End Date Bsailio Abraham PA-C [address] [place] [address] PCP - General Family Medicine 10/13/18 Sketch Artist Relationship Specialty Start Date End Date Basilio Abraham PA-C [address] [place] [address] PCP - General Family Medicine 10/13/18 Sketch Artist Relationship Specialty Start Date End Date Basilio Abraham PA-C [address] [place] [address] PCP - General Family Medicine 10/13/18 Sketch Artist Relationship Specialty Start Date End Date Basilio Abraham PA-C [address] [place] [address] PCP - General Family Medicine 10/13/18 Sketch Artist Relationship Specialty Start Date End Date Basilio Abraham PA-C [address] [place] [address] PCP - General Family Medicine 10/13/18 Sketch Artist Relationship Specialty Start Date End Date Basilio Abraham PA-C [address] [facility] [place] [address] PCP - General Family Medicine 10/13/18 Sketch Artist Relationship Specialty Start Date End Date Basilio Abraham PA-C [address] [facility] [place] [address] PCP - General Family Medicine 10/13/18 Sketch Artist Relationship Specialty Start Date End Date Basilio Abraham PA-C [address] [facility] [place] [address] PCP - General Family Medicine 10/13/18 Sketch Artist Relationship Specialty Start Date End Date Viola Phelps, LABORER GOLF [employer] [address] [place] [address] PCP - General Family Medicine 07/28/24 Sketch Artist Relationship Specialty Start Date End Date Viola Phelps, LABORER GOLF [employer]RSE.[employer] [address] [place] [address] PCP - General Family Medicine 07/28/24 Sketch Artist Relationship Specialty Start Date End Date Viola Phelps, LABORER GOLF [employer]RSE.[employer] [address] [place] [address] PCP - General Family Medicine 07/28/24 Sketch Artist Relationship Specialty Start Date End Date Hawa Abraham PA-C PCP - General Family Medicine 10/13/18 07/27/24 Viola Phelps, LABORER GOLF [employer]RSE.[employer] [address] [place] [address] PCP - General Family Medicine 07/28/24 Shakila Luu, LABORER GOLF [employer]RSE.[employer] [address] [facility] [place] [address] Calender Runner Family Medicine 08/30/24 Salvador Justin MD [address] [facility] [place] [address] Calender Runner Family Medicine 08/30/24 Sketch Artist Relationship Specialty Start Date End Date Viola Phelps APRN.[employer] [address] [place] [address] PCP - General Family Medicine 07/28/24 Shakila Luu APRN.[employer] [address] [facility] [place] [address] Calender Runner Family Medicine 08/30/24 Salvador Justin MD [address] [facility] [place] [address] Calender Runner Family Medicine 08/30/24 Sketch Artist Relationship Specialty Start Date End Date Viola Phelps APRN.[employer] [address] [place] [address] PCP - General Family Medicine 07/28/24 Shakila Luu LABORER GOLF [employer]RSE.[employer] [address] [facility] [place] [address] Calender Runner Family Medicine 08/30/24 Salvador Justin MD [address] [facility] [place] [address] Calender Runner Family Medicine 08/30/24 Sketch Artist Relationship Specialty Start Date End Date Viola Phelps LABORER GOLF [employer]RSE.[employer] [address] [place] [address] PCP - General Family Medicine 07/28/24 Shakila Luu LABORER GOLF [employer]RSE.[employer] [address] [facility] [place] [address] Calender Runner Family Medicine 08/30/24 Salvador Justin MD [address] [facility] [place] [address] [facility] 08/30/24 Sketch Artist Relationship Specialty Start Date End Date Viola Phelps APRN.[employer] [address] [facility] [place] [address] PCP - General Family Medicine 07/28/24 Shakila Luu APRN.[employer] E[employer]MER [address] [facility] [place] [address] Calender Runner Family Medicine 08/30/24 Salvador Justin MD [address] [facility] [place] [address] [facility] 08/30/24 Sketch Artist Relationship Specialty Start Date End Date Viola Phelps APRN.[employer]ALMER [address] [place] [address] PCP - General Family Medicine 07/28/24 Shakila Luu APRN.[employer] E[employer]MER [address] [facility] [place] [address] Calender Runner Family Medicine 08/30/24 Salvador Justin MD [address] [facility] [place] [address] Calender Runner Family Medicine 08/30/24 Sketch Artist Relationship Specialty Start Date End Date Viola Phelps APRN.[employer] [address] [place] [address] PCP - General Family Medicine 07/28/24 Shakila Luu APRN.[employer] E[employer]MER [address] [facility] – [place] [address] [facility] 08/30/24 Salvador Justin MD [address] [facility] [place] [address] [facility] 08/30/24 Sketch Artist Relationship Specialty Start Date End Date Viola Phelps APRN.TRADE EMBALMER [address] [place] [address] PCP - General Family Medicine 07/28/24 Shakila Luu APRN.TRADE EMBALMER [address] [place] [address] [facility] 08/30/24 Salvador Justin MD [address] [place] [address] [facility] 08/30/24 Sketch Artist Relationship Specialty Start Date End Date Viola Phelps APRN.TRADE EMBALMER [address] [place] [address] PCP - General Family Medicine 07/28/24 Sketch Artist Relationship Specialty Start Date End Date Viola Phelps APRN.TRADE EMBALMER [address] [place] [address] PCP - General Family Medicine 07/28/24 Sketch Artist Relationship Specialty Start Date End Date Viola Phelps APRN.TRADE EMBALMER [address] [place] [address] PCP - General Family Medicine 07/28/24 Shakila Luu APRN.TRADE EMBALMER [address] [place] [address] [facility] 08/30/24 12/14/24 Salvador Justin MD [address] [place], [place] [address] [facility] 12/14/24 Sketch Artist Relationship Specialty Start Date End Date Viola Phelps, LABORER [employer].TRADE EMBALMER [address] [place], [place] [id number] PCP - General Family Medicine 07/28/24 Shakila Luu, LABORER GOL[employer]SE.TRADE EMBALMER [address] [place] [address] Pending Sale To [facility] 08/30/24 12/14/24 Salvador Justin MD [address] [place], [place] [id number] Pending Sale To [facility] 08/30/24 12/14/24 Sketch Artist Relationship Specialty Start Date End Date Viola Phelps, LABORER GOL[employer]RSE.TRADE EMBALMER [address] [place], [place] [id number] PCP - General Family Medicine 07/28/24 Reason for Visit (unrecogniz ed section and content) Reason Comments Follow Up Chronic Illness Reason Comments Appointment Future Appointment Pain Management Reason Comments Patient Question Orders Reason Comments Follow Up Reason Comments New Patient Evaluation Specialty Diagnoses / Procedures Referred By Contac t Referred To Contact Spine [place] / SPINE Diagnoses Lumbar foraminal stenosis Sacroiliac pain Procedures CONSULT TO [facility] OFFICE/OUTPATIENT [facility] 60-74 MINUTES Basilio Abraham PA-C [address] [place] [address] Spine Med [facility] [address] [place] [id number] Referral ID Status Reason Start Date Expiration Date V isits Requested Visits Authorized [id number] Closed PCP Requested Referral 02/05/2022 02/05/2023 1 1 Reason Comments Patient Update Reason Comments Follow Up Patient want to disc uss Psoriatic arthritis Reason Comments Follow Up Reason Comments Orders Reason Comments Referral Request Reason Comments Orders Reason Comments Follow Up Reason Comments F/U 6 Month Reason Comments Patient Question Reason Comments Appointment EMG Specialty Diagnoses / Procedures Referred By Contac t Referred To Contact MR IMAGING Diagnoses Transient cerebral ischemia, unspecified type Procedures MRI BRAIN WO IVCON MRI BRAIN BRAIN STEM W/O CONTRAST MATERIAL Patsy Soto, ANIA.TRADE EMBALMER [address] [place] [address] [place] [address] Referral ID Status Reason Start Date Expiration Date V isits Requested Visits Authorized [id number] Closed Auto-Generate d Referral 02/21/2023 03/22/2024 1 1 Reason Comments Follow Up 4 week Reason Comments Recheck Follow up- medicatio n refills Reason Comments Lab Orders Results Reason Comments Patient Question Genetics Reason Comments Research IRB [id number] Reason Comments Consult Reason Onset Date Comments Refill Request 07/15/2024 Reason Comments Recheck 3 month follow up/ T ransfer of care Reason Comments Results Reason Comments Refill Request Reason Comments Established Patient Following up for jhony goddard, patient not sure why he is here Reason Comments Recheck 3 month follow up Reason Comments Recheck 1 month follow up Reason Comments Recheck 1 month follow up Goals (unrecognized section and content) Goals may be documented in a n alternate sectionGoals may be documented in an alternate sectionGoals may be documented in an alternate section FOR RECORDS PERTAINING TO PATIENTS WHO ARE OR HAVE BEEN ENROLLED IN A CHEMICAL DEPENDENCY/SUBSTANCEABUSE PROGRAM, SOME INFORMATION MAY BE OMITTED. This clinical summary was aggregated from multiple sources. Caution should be exercised in using it in the provision of clinical care. This summary normalizes information from multiple sources, and as a consequence, information in this document may materially change the coding, format and clinical context of patient data. In addition, data may be omitted in some cases. CLINICAL DECISIONS SHOULD BE BASED ON THE PRIMARY CLINICAL RECORDS. [employer] provides no warranty or guarantee of the accuracy or completeness of information in this document.
[2025-04-05] VITALS (9 sets, daily range): BP systolic 134–161; BP diastolic 80–97; PULSE 58–80; RESP 12–17; TEMP 36.3–36.7; O2SAT 97–100; BMI 14.9
--- NOTE | 2025-04-05 00:05 | CT_ITS ---
PROCEDURE: BRAIN/HEAD WITHOUT CONTRAST 04/05/2025 REASON FOR EXAM: HEAD INJURY TECHNIQUE: BRAIN/HEAD WITHOUT CONTRAST Coronal and Sagittal reconstruction series were provided. One or more dose reduction techniques were used (e.g., Automated exposure control, adjustment of the mA and/or kV according to patient size, use of iterative reconstruction technique. RADIATION DOSE SUMMARY: CTDlvol: 45 mGy DLP: 897 mGycm COMPARISON: No FINDINGS: Diffuse atrophy. No acute abnormal brain densities. No intracranial hemorrhage. No hydrocephalus or midline shift. No acute skull pathology. Right anterior scalp swelling. Clear sinuses. CT/Brain/Head without Contrast IMPRESSION: No acute intracranial findings. Reading Location: [place] [address]
--- NOTE | 2025-04-05 00:05 | CT_ITS ---
PROCEDURE: SPINE CERVICAL WITHOUT CONTRAS 04/05/2025 REASON FOR EXAM: HEAD INJURY TECHNIQUE: SPINE CERVICAL WITHOUT CONTRAS Coronal and Sagittal reconstruction series were provided. One or more dose reduction techniques were used (e.g., Automated exposure control, adjustment of the mA and/or kV according to patient size, use of iterative reconstruction technique. RADIATION DOSE SUMMARY: CTDlvol: 12 mGy DLP: 287 mGycm COMPARISON: No FINDINGS: Cervical spine scoliosis and degeneration. Acute C5 spinous process fracture. At T2, there is a subtle vertebral body fracture which is probably acute. Correlate with symptoms. CT/Spine Cervical without Contras IMPRESSION: C5 spinous process fracture. T2 vertebral body fracture probably acute. Reading [facility]
[2025-04-05] MEDS: 0.9% Normal Saline (1000mL) 1,000 ML 999 ML IV (00:20)
[2025-04-05 00:21] LABS: Hematocrit 38.9 % (40-54); Hemoglobin 13.1 g/dL (13.0-16.5); Immature Granulocytes Count 0.030 X10^3/uL (0.0-0.0); Mean Corp Hgb Conc 33.7 g/dL (32-36); Mean Corpuscular Volume 100.5 fL (80-94); Mean Platelet Vol. 11.8 fl (6.2-12.0); NRBC Flagged by Analyzer 0 % (0-5); Platelet Count 244 K/mm3 (150-450); RBC Distribution Width CV 13.1 % (11.6-14.6); RBC Distribution Width SD 48.0 fl (35.1-43.9); Red Blood Count 3.87 M/mm3 (4.6-6.2); White Blood Count 7.4 K/mm3 (4.4-11.0)
[2025-04-05 00:26] LABS: Red Blood Cells-Urine 0 SEEN /hpf (0-5); Squamous Epithelial Cells - UA 0 SEEN /hpf (0-5)
[2025-04-05 00:35] LABS: Color, Urine Yellow (Yellow); Glucose, Dipstick Normal (Normal); Ketone-Dipstick 15 mg/dl (Negative); Leukocyte Esterase-Dipstick Negative /ul (Negative); Nitrite-Dipstick Negative (Negative); Occult Blood-Urine 10 /ul (Negative); Protein-Dipstick 30 mg/dl (Negative); Specific Gravity, Urine 1.025 (1.002-1.030)
--- NOTE | 2025-04-05 00:35 | RAD_ITS ---
PROCEDURE: CHEST 1 VIEW (PORTABLE) 04/05/2025 REASON FOR EXAM: WEAKNESS TECHNIQUE: Frontal view of the chest. COMPARISON: No FINDINGS: Scoliosis. Normal heart size. Well inflated lungs. No consolidation, effusion, or pneumothorax. RAD/Chest 1 View (Portable) IMPRESSION: No acute chest findings. Reading Location: [place] [address]
[2025-04-05 00:41] LABS: Urine Bilirubin Dipstick 1 mg/dL (Negative)
[2025-04-05 00:52] LABS: Mucous, Urine 2+ /hpf (<or=2+)
[2025-04-05 01:03] LABS: AST(SGOT) 29 U/L (<=37); Alanine Aminotransfer ALT/SGPT 21 U/L (<=46); Albumin, Serum 3.9 g/dL (3.4-4.8); Alkaline Phosphatase 74 U/L (40-129); Anion Gap 13 (5-15); BUN 21 mg/dL (4-19); BUN/Creat Ratio 20.7 RATIO (10-20); Bilirubin, Direct 0.26 mg/dL (0.00-0.30); Calcium,Total 9.1 mg/dL (7.6-11.0); Carbon Dioxide 23.4 mmol/L (21.0-32.0); Chloride 103 mmol/L (98-108); Estimated Creatinine Clearance 43.28 ml/min (50-250); Globulin 3.5 g/dL (2.2-4.2); Glucose 112 mg/dL (70-99); Magnesium 2.1 mg/dL (1.5-2.2); Potassium 3.2 mmol/L (3.3-5.1)
[2025-04-05 02:21] LABS: Barbiturate Urine NEGATIVE (< 200 ng/mL); Benzodiazepine Urine NEGATIVE (< 200 ng/mL); PCP Urine NEGATIVE (< 25 ng/mL); THC Urine NEGATIVE (< 50 ng/mL)
--- NOTE | 2025-04-05 02:30 | PCM.HP.STD ---
HPI - General General Date of Admission: 04/05/25 Date of Service: 04/05/25 Chief Complaint: Adult failure to thrive HPI Narrative NAVA HEALY, is a 80 M who presented to [facility] ED on 04/05/2025 with adult failure to thrive. Medical history is significant for Parkinson's disease and hypothyroidism. Patient lives at home alone. Patient's family member called [place] police for a wellness check this evening. Patient was found laying in his bed with dried blood on his forehead. Patient reported that he fell twice yesterday due to weakness. Hit his head but denied losing consciousness. They asked if he would like to go to the ER and he agreed to this. Patient's home notably was in disarray with multiple cats and a dog living there with a strong ammonia smell noted. Patient was also noted to be quite disheveled appearing. On arrival to the ED he was tachycardic to the 110s but otherwise hemodynamically stable on room air. CBC was benign. BMP notable for potassium 3.2 but was otherwise benign. TSH normal. UA noninfectious appearing. CT brain and chest x-ray unremarkable. CT C-spine did show an acute C5 spinous process fracture as well as a subtle vertebral body fracture at T2 that is likely acute. Given his weakness with failure to thrive and recent falls, hospitalist was contacted for admission. I saw the patient at bedside in the ED. Patient was cachectic and disheveled appearing. He was making appropriate eye contact and attempting to answer questions appropriately, but he did not know the year or month and had tangential speech noted. He denied any acute pain or discomfort while sitting in bed. He was stating that he wanted to go home soon so that he could take care of his cats and dog. No other acute concerns currently. Will be admitted for further management. COUNTS INCLUDE 234 BEDS AT THE [facility] Medical History (Updated 04/05/25 @ 02:[address] 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 Home Medications ?Medication ?Instructions ?Recorded ?Last Taken ?Type gqpgqux-geqicbtgcwona-sjpuyqab 250 1 tab PO ONCE 09/06/22 Unknown History mg-250 mg-65 mg tablet (Excedrin Extra Strength) levothyroxine 50 mcg tablet 50 mcg PO DAILY 05/18/24 Unknown History Allergy/AdvReac Type Severity Reaction Status Date / Time No Known Allergies Allergy Verified 05/18/24 01:09 Family History Other Arthritis Cancer Social History Smoking Status: Former smoker alcohol intake: never substance use type: does not use what type of physical activity do you participate in: none ROS Review of Systems ROS Unobtainable: due to mental status Constitutional Constitutional: Reports fatigue and weakness; Denies chills or fever(s) Eyes Eyes: Denies change in vision Cardiovascular Cardiovascular: Denies chest pain Respiratory/Chest Respiratory/Chest: Denies shortness of breath at rest Gastrointestinal Gastrointestinal: Denies abdominal pain Neurologic Neurologic: Denies dizziness or headache(s) Vital Signs Vital Signs Vital Signs: 04/04/25 22:06 04/04/25 22:11 04/04/25 23:05 Temperature 98 F Temperature Source Oral Pulse Rate 126 H 86 Respiratory Rate 28 H 17 Respiratory Pattern Normal Blood Pressure 104/90 H 132/97 H Blood Pressure Mean 94 108 Pulse Ox 99 98 Oxygen Delivery Method Room Air Room Air 04/05/25 00:05 04/05/25 01:34 04/05/25 02:00 Temperature Temperature Source Pulse Rate 80 71 72 Respiratory Rate 17 17 16 Respiratory Pattern Blood Pressure 144/96 H 144/89 H 161/94 H Blood Pressure Mean 112 107 116 Pulse Ox 99 99 100 Oxygen Delivery Method Room Air Room Air Room Air 04/05/25 02:08 Temperature 98.1 F Temperature Source Pulse Rate 74 Respiratory Rate 16 Respiratory Pattern Blood Pressure 152/94 H Blood Pressure Mean 113 Pulse Ox 100 Oxygen Delivery Method Weight Weight: 53.5 kg Body Mass Index (BMI) 16.4 Physical Exam Const alert and no apparent distress Constitutional Narrative: Elderly male, thin and cachectic appearing, disheveled appearing, alert and oriented to person place but not time and tangential speech noted with questions, otherwise sitting back fairly comfortably in bed and in no acute distress. General Appearance: cooperative and comfortable Orientation / Consciousness: confused HEENT normocephalic, head/scalp atraumatic, hearing grossly normal bilaterally, nasal mucous membranes and turbinates normal and moist oral mucous membranes HEENT Narrative: Dried blood noted on forehead but otherwise scalp atraumatic. Eyes PERRL, EOMs intact bilaterally and conjunctivae normal Neck full ROM Chest inspection of chest normal Resp normal respiratory effort, normal air movement, no use of accessory muscles and clear to auscultation bilaterally Cardio regular rate, regular rhythm, no murmurs and peripheral pulses 2+ throughout GI normal to inspection, nondistended, normoactive bowel sounds, soft to palpation, non-tender and non-distended Back/Spine normal ROM Extremity normal to inspection, full ROM and no pedal edema Skin no rashes or lesions noted Results Lab / Micro Data 04/04/25 22:28 04/04/25 22:28 Labs: Laboratory Results - last 24 hr 04/04/25 22:28: WBC 7.4, RBC 3.87 L, Hgb 13.1, Hct 38.9 L, MCV 100.5 H, MCH 33.9 H, MCHC 33.7, RDW Std Deviation 48.0 H, RDW Coeff of Iliana 13.1, Plt Count 244, MPV 11.8, Immature Gran % (Auto) 0.400, Neut % (Auto) 79.0 H, Lymph % (Auto) 14.0 L, Miner % (Auto) 5.5, Eos % (Auto) 0.4, Baso % (Auto) 0.7, Absolute Neuts (auto) 5.9, Absolute Lymphs (auto) 1.04, Nucleated RBC % 0, Sodium 140, Potassium 3.2 L, Chloride 103, Carbon Dioxide 23.4, Anion Gap 13, BUN 21 H, Creatinine 1.03, Estim Creat Clear Calc 43.28 L, Est GFR (MDRD) Non-Af 73, BUN/Creatinine Ratio 20.7 H, Glucose 112 H, Calcium 9.1, Magnesium 2.1, Total Bilirubin 0.69, Direct Bilirubin 0.26, AST 29, ALT 21, Alkaline Phosphatase 74, Total Protein 7.4, Albumin 3.9, Globulin 3.5, TSH 2.000 04/05/25 00:22: Urine Color Yellow, Urine Clarity Clear, Urine pH 6.0, Ur Specific [place] 1.025, Urine Protein 30 H, Urine Glucose (UA) Normal, Urine Ketones 15 H, Urine Occult Blood 10 H, Urine Nitrite Negative, Urine Bilirubin 1 H, Urine Urobilinogen 4 H, Ur Leukocyte Esterase Negative, Urine RBC 0 SEEN, Urine WBC 0-5 SEEN, Ur Squamous Epith Cells 0 SEEN, Urine Bacteria 1+, Hyaline Casts 25-50 SEEN, Urine Mucus 2+, Urine Opiates Screen NEGATIVE, U Buprenorphine Qual NEGATIVE, Ur Oxycodone Screen NEGATIVE, Urine Methadone Screen NEGATIVE, Urine Fentanyl Screen NEGATIVE, Ur Barbiturates Screen NEGATIVE, Ur Phencyclidine Scrn NEGATIVE, Ur Amphetamines Screen NEGATIVE, U Benzodiazepines Scrn NEGATIVE, Urine Cocaine Screen NEGATIVE, U Cannabinoids Screen NEGATIVE Imaging Radiology Impression Brain CT 04/05/25 00:05 IMPRESSION: No acute intracranial findings. Reading Location: [facility] [address] 04/05/25 00:05 IMPRESSION: C5 spinous process fracture. T2 vertebral body fracture probably acute. Reading Location: [facility] Chest X-Ray 04/05/25 00:35 IMPRESSION: No acute chest findings. Reading Location: [facility] Assessment & Plan Assessment/Plan (1) Adult failure to thrive: (2) Parkinsons disease: QUALIFIERS: Dyskinesia presence: unspecified whether dyskinesia Fluctuating manifestations: unspecified whether manifestations fluctuate Qualified Code(s): G20.A1 - Parkinson's disease without dyskinesia, without mention of fluctuations PLAN: Plan Patient is an 80-year-old male who presented [facility] ED on 04/05/2025 for adult failure to thrive. 1. Adult failure to thrive, recent fall with acute small C5 and T2 fractures, suspected malnutrition ? Admit under observation status to [facility]. PT/OT/case management/social work consulted. Nutrition consulted. Lives at home alone. Brought in after welfare check; home noted to be in disarray and patient weak, cachectic and disheveled appearing. He reported 2 recent falls and had dried blood on his forehead. CT C-spine revealed C5 spinous process fracture and suspected acute T2 fracture. Patient with no neurologic deficits noted. Strongly suspect patient will need SNF on discharge and potentially long-term care, appreciate therapy recommendations. 2. Hypokalemia ? Potassium 3.2 on admit. Mag and Phos normal. Replete as needed. 3. Parkinson's disease ? Patient has reported history of Parkinson's disease. Last ED visit here was in April 2024 and he noted then that he was not on any Parkinson's medications due to side effects. He again is not on any Parkinson medications at this time. Is certainly contributing to his failure to thrive as above. 4. Hypothyroidism ? TSH normal on admit. Continue home Synthroid. DVT prophylaxis: Lovenox CODE STATUS: Full code, unverified Expected disposition: TBD Total clinical time spent by myself addressing the patient's medical issues, reviewing all the data, and collaborating with patient's care team: 55 minutes. Charges/Coding Visit Charges Inpatient E&M: 70731 Init Hosp L2
[2025-04-05 02:35] LABS: Alcohol, Blood (Medical)-Serum < 10.1 mg/dL (<=10.0)
--- NOTE | 2025-04-05 02:44 | EX.ED.DYSGE1 ---
HPI History of Present Illness Chief Complaint: Weakness Informant: patient and EMS Narrative Narrative: Patient is an 80-year-old male with past medical history of Parkinson's disease. EMS states that the patient had a well check called in and when he was found at home he was confused living in poor conditions and did not appear to be caring for himself. He also had signs of trauma to his head consistent with the recent fall. Therefore because of his poor living conditions signs of failure to thrive and recent injury he was brought in for evaluation. Please note that the patient is confused and cannot offer any further history [facility] Medical History (Updated 04/05/25 @ 07:[address] Todd Burnham, DO) Hypothyroid Parkinsons disease Osteoarthritis of carpometacarpal joint of left thumb Home Medications ?Medication ?Instructions ?Recorded ?Last Taken ?Type [id number] 250 1 tab PO ONCE 09/06/22 04/04/25 History mg-250 mg-65 mg tablet (Excedrin Extra Strength) levothyroxine 50 mcg tablet 50 mcg PO DAILY 05/18/24 04/04/25 History Allergy/AdvReac Type Severity Reaction Status Date / Time No Known Allergies Allergy Verified 05/18/24 01:09 Family History Other Arthritis Cancer Social History Smoking Status: Former smoker alcohol intake: never substance use type: does not use what type of physical activity do you participate in: none ROS ROS ED ROS Narrative Unable to obtain review of systems as patient is confused and uncooperative with exam EXAM Physical Exam Const Vital Signs: 04/04/25 22:06 04/04/25 22:11 04/04/25 23:05 Temperature 98 F Temperature Source Oral Pulse Rate 126 H 86 Respiratory Rate 28 H 17 Respiratory Pattern Normal Blood Pressure 104/90 H 132/97 H Blood Pressure Mean 94 108 Pulse Ox 99 98 Oxygen Delivery Method Room Air Room Air 04/05/25 00:05 04/05/25 01:34 04/05/25 02:00 Temperature Temperature Source Pulse Rate 80 71 72 Respiratory Rate 17 17 16 Respiratory Pattern Blood Pressure 144/96 H 144/89 H 161/94 H Blood Pressure Mean 112 107 116 Pulse Ox 99 99 100 Oxygen Delivery Method Room Air Room Air Room Air 04/05/25 02:08 Temperature 98.1 F Temperature Source Pulse Rate 74 Respiratory Rate 16 Respiratory Pattern Blood Pressure 152/94 H Blood Pressure Mean 113 Pulse Ox 100 Oxygen Delivery Method Positive well nourished and well developed General Appearance ED: well developed HEENT Reports dry mucous membranes HEENT Narrative: There is dried blood along the left upper forehead concerning for recent fall/head injury. However no signs of depressed or basilar skull fracture No tongue or lip swelling. No oral lesions no airway edema or compromise No secondary findings in posterior pharynx to suggest infection Mucous membranes are dry and tacky Mouth ED: Yes dry mucous membranes Mouth: dry mucous membranes Eyes PERRL and EOMs intact bilaterally General Eye ED: Negative for scleral icterus Neck supple Neck Narrative: No bony deformity or step-off of the cervical spine no midline tenderness to palpation No nuchal rigidity or meningeal signs Chest Wall palpation of chest normal Chest Narrative: No bony deformity or subcutaneous emphysema noted Resp normal respiratory effort and clear to auscultation bilaterally Cardio regular rate and regular rhythm GI normal to inspection, nondistended, normoactive bowel sounds, non-tender, non-distended and no masses GI Narrative: No voluntary guarding or rigidity or pulsatile mass Auscultation: normoactive bowel sounds Palpation: soft Back/Spine Back/Spine Narrative: No bony deformity or step-off of the thoracic or lumbar spine no midline tenderness to palpation Extremity normal to inspection Extremity Narrative: Pelvis is stable there is no shortening or external rotation of either lower extremity Patient is able to move all extremities but he is overall weak in nature Neuro CN's II-XII intact bilaterally Neuro Narrative: Patient is awake and alert but disoriented. He is not able to tell me time or place. He is able to move all 4 extremities but they are weak in nature There is no focal neurologic deficit Sensorium / Orientation: alert Psych Psych Narrative: Patient has a irritated/frustrated affect Masked facies is noted consistent with Parkinson's disease Skin Skin Narrative: Dried blood along the left forehead consistent with recent head trauma Skin turgor is increased consistent with dehydration No obvious signs of cellulitis or abscess MDM MDM MDM Narrative Medical decision making narrative: Patient arrived to the ER awake and alert but disoriented to time and place. According to EMS he is living in deplorable living conditions and he is not caring for himself. This is evidenced through his emaciation and elevated skin turgor indicating he is not eating or drinking or potentially even taking medication. With the signs of trauma to the head there is concern for traumatic subarachnoid or subdural hemorrhage or cervical compression fracture. Therefore I did elect to perform a head and cervical spine CT. head CT revealed no sign of acute bleed. Cervical spine CT showed a spinous fracture but this is a stable fracture and without a burst fracture of the vertebrae there is no need for immobilization/c-collar. Patient could also have potential pneumonia causing his increased weakness and failure to thrive so chest x-ray was ordered but this revealed no acute lung pathology. At this time the labs do not reveal any clinically significant finding. However as the patient has increased generalized weakness to the point where he cannot ambulate coupled with confusion and he has deplorable living conditions and is clearly not caring for himself I do not feel that discharge is appropriate. The patient will need evaluated by social work to discuss shelter placement. Therefore the case was discussed with the hospitalist who agrees to accept the patient for continued care Lab Data Attestation: I reviewed the patient's lab results. Labs: Laboratory Results - last 24 hr 04/04/25 04/05/25 04/05/25 22:28 00:22 02:05 WBC 7.4 RBC 3.87 L Hgb 13.1 Hct 38.9 L MCV 100.5 H MCH 33.9 H MCHC 33.7 RDW Std Deviation 48.0 H RDW Coeff of Iliana 13.1 Plt Count 244 MPV 11.8 Immature Gran % (Auto) 0.400 Neut % (Auto) 79.0 H Lymph % (Auto) 14.0 L Smyth % (Auto) 5.5 Eos % (Auto) 0.4 Baso % (Auto) 0.7 Absolute Neuts (auto) 5.9 Absolute Lymphs (auto) 1.04 Nucleated RBC % 0 Sodium 140 Potassium 3.2 L Chloride 103 Carbon Dioxide 23.4 Anion Gap 13 BUN 21 H Creatinine 1.03 Estim Creat Clear Calc 43.28 L Est GFR (MDRD) Non-Af 73 BUN/Creatinine Ratio 20.7 H Glucose 112 H Calcium 9.1 Phosphorus 2.8 Magnesium 2.1 Total Bilirubin 0.69 Direct Bilirubin 0.26 AST 29 ALT 21 Alkaline Phosphatase 74 Total Protein 7.4 Albumin 3.9 Globulin 3.5 TSH 2.000 Urine Color Yellow Urine Clarity Clear Urine pH 6.0 Ur Specific [place] 1.025 Urine Protein 30 H Urine Glucose (UA) Normal Urine Ketones 15 H Urine Occult Blood 10 H Urine Nitrite Negative Urine Bilirubin 1 H Urine Urobilinogen 4 H Ur Leukocyte Esterase Negative Urine RBC 0 SEEN Urine WBC 0-5 SEEN Ur Squamous Epith Cells 0 SEEN Urine Bacteria 1+ Hyaline Casts 25-50 SEEN Urine Mucus 2+ Urine Opiates Screen NEGATIVE U Buprenorphine Qual NEGATIVE Ur Oxycodone Screen NEGATIVE Urine Methadone Screen NEGATIVE Urine Fentanyl Screen NEGATIVE Ur Barbiturates Screen NEGATIVE Ur Phencyclidine Scrn NEGATIVE Ur Amphetamines Screen NEGATIVE U Benzodiazepines Scrn NEGATIVE Urine Cocaine Screen NEGATIVE U Cannabinoids Screen NEGATIVE Ethyl Alcohol < 10.1 Radiography Diagnostic Testing: Clinical Impression(s) from Imaging Studies Brain CT 04/05/25 00:05 IMPRESSION: No acute intracranial findings. Reading Location: [facility] 04/05/25 00:05 IMPRESSION: C5 spinous process fracture. T2 vertebral body fracture probably acute. Reading Location: [facility] Chest X-Ray 04/05/25 00:35 IMPRESSION: No acute chest findings. Reading Location: [facility] Chest x-ray is interpreted by the emergency medicine physician reveals no acute infiltrate pneumothorax or pleural effusion Management Discussion w/another healthcare provider: Hospitalist Discharge Plan Dx/Rx/DC Orders Clinical Impression: Adult failure to thrive, Parkinsons disease, Fracture of spinous process of cervical vertebra Disposition Disposition: Acute Care Hospital [facility] Discharge Date/Time: 04/05/25 04:04
--- OUTSIDE RECORDS SUMMARY | 2025-04-05 03:01 | XMS RPT_ITS | CCD ---
Author Organization [facility] CliniSyks Care Team Providers Care Dispatcher Radio Name Role Phone Abraham PA-CBasilio Primary Care Provider Abraham PA, PA Basilio QiuMaximilian Primary Care Provider [phone] Abraham PA, PA Basilio Yao Referring Provider HARI Kyle Attending Provider Dr. Mikael Chapman Attending Provider MD Dino Huffman Attending Provider Abraham PA-C, Basilio Yao Primary Care Provider [phone] Abraham PA, PA Basilio QiuMaximilian Primary Care Provider [phone] Abraham PA, PA Basilio Yao Referring Provider Dr. Eddi Larson Attending Provider Dr. Mikael Chapman Attending Provider Jarad NORIEGA-C, Basilio Yao Primary Care Provider Abraham PA, M Maximilian Primary Care Unavailable Mikael Chapman Attending Unavailable Eddi Larson Referring Unavailable Abraham PABasilio Primary Care Unavailable Eddi Larson Attending Unavailable Abraham PA, M Maximilian Primary Care Unavailable Todd Burnham Attending Unavailable Abraham PA, M Maximilian Primary Care Unavailable Abraham PA M Maximilian Referring Unavailable Eddi Larson Attending Unavailable Lnein DRILLER'S ASSISTANT.Viola STORY Primary Care Provider Bryceagen DRILLER'S ASSISTANT.STONE DECORATOR, Viola Primary Care Provider Abraham PA-CHawa Primary Care Provider Unavailable Suppan DRILLER'S ASSISTANT.JEZ, Shakila Jha Unavailable Salvador Justin MD Unavailable Suppan DRILLER'S ASSISTANT.STONE DECORATOR, Shakila A Unavailable Suppan DRILLER'S ASSISTANT.STONE DECORATOR, Shakila A Unavailable Suppan DRILLER'S ASSISTANT.JEZ, Shakila A Unavailable Salvador Justin MD Unavailable [phone] HAAGEN, VIOLA Attending Unavailable HAAGEN, VIOLA [...] Referring Unavailable HAAGEN, VIOLA Primary Care Unavailable ABRAHAMHAAW Referring Unavailable ABRAHAMHAWA Primary Care Unavailable HAAGEN, VIOLA Attending Unavailable HAAGEN, VIOLA Primary Care Unavailable Allergies Allergy Classification Reported Allergen(s) Allergy Type Date of Onset Reaction(s) Facility (20 sources) Banana Extract; Translations: [BANANA] Drug Allergy 10-13-2018 GI Upset [facility] Work Phone: Medications Current Medications Medication Drug [...] by mouth every six hours as needed Cysgrki-Bdhuxjamnnice-Byxosgvj (EXCEDRIN ) 250-250-65 mg per tablet Take [...] Comment on above: Take 1 capsule by [facility] three times daily for 90 days. Titrate [...] Comment on above: Take 1 tablet by [facility] once daily. With food. piroxicam 10 mg oral capsule (4 sources) Nonsteroidal Anti-inflammatory Drug Start: 06-11-20 End: 12-02-19 take 1 capsule by mouth once daily piroxicam (FELDENE) 10 mg capsule Take 1 capsule by mouth once daily. 15 capsule 0 06/11/2023 12/02/2023 Discontinued Comment on above: Take 1 capsule by [facility] once daily. triamcinolone acetonide 0.0005 mg/mg topical [...] Test Name Value Interpretation Reference Range Facility [facility] 02-19-2025 [facility]AVA [facility]AL[facility] Hina ([id number]) 1945 M Date Time Provider Department 02/19/25 2:20 PM VIOLA PHELPS [facility] During your visit today, we recorded [...] morning ON AN EMPTY STOMACH FOR THYROID Efaorjq-Bxrbckjfexxan-Pwnsf ine (EXCEDRIN) 250-250-65 mg per tablet Take [...] 1 CONSULT TO NEUROLOGY [9019] Order #: [id number]: 1 FUTURE Prescriptions as of 02/19/2025 - tiZANidine (ZANAFLEX) 2 mg tablet Take 2 tablets by mouth two times a day as needed (for pain). - mirtazapine (REMERON) 15 mg tablet Take 1 tablet by mouth daily at bedtime. - levothyroxine (SYNTHROID) 50 mcg tablet take 1 tablet by mouth every morning ON AN EMPTY STOMACH FOR THYROID - Mapcear-Hgyplmicxjmuo-Tgtg (more content not included)... Normal [facility] ([id number]) 1945 M Date Time Provider Department 01/22/25 CALE MIX During your visit today, we recorded the following information about you: Cale Mix MSW 01/22/2025 3:54 PM Signed Patient called Sw and asked for agency that could help him connect with appropriate assisted living/superintendent container terminal care option in the community. Sw and [...] call this Sw back to discuss referral. Clae Mix MSW 01/25/2025 10:48 AM Signed Sw [...] ON AN EMPTY STOMACH FOR THYROID - Vslpajf-Tzsfbikvggkbv-Yakha ine (EXCEDRIN) 250-250-65 mg per tablet Take [...] Encounter Status:Closed by CALE MIX on 01/[facility] CNOV[facility] 01-20-2025 CNOV Office Visit (RENEE ) NAVA HEALY ([id number]) 1945 M Date Time Provider Department 01/20/25 3:00 PM VIOLA PHELPS During your visit today, we recorded the following information about you: Pulse Respiration Blood pressure Weight 74/minute 16/minute 128/78 54.4 kg Viola Phelps APRN.STONE DECORATOR 01/20/2025 3:47 PM Signed This is a [...] been considering moving to assisted living vs [facility]. It is getting more difficult with self [...] melatonin 1 mg chew Take by mouth. Cumycpc-Mqavqmvmnojqi-Pzcal ine (EXCEDRIN) 250-250-65 mg per tablet Take [...] for worsening/no improvement. Viola Phelps APRN.[facility]ola Wong [facility] 01/20/2025 3:36 PM Addendum Start the remeron [...] 1 tiZANidine (more content not included)... [facility]AVA HE[facility] ([id number]) 1945 M Date Time Provider Department 01/13/25 [...] 1 mg chew Take by mouth. - Qulvlzz-Thqzdtbjyqhuh-Xoqdu ine (EXCEDRIN) 250-250-65 mg per tablet Take [...] Status:Closed by CHARY QUILES on 01/13/25 Normal [facility] Hemoccult Stl Ql IAon 2024 Lower GI hemoglobin IA Ql (Stl) Negative Normal Negative [facility] Comment on above: Order Comment: Speci men Type: BLOOD SPECIMEN Ordering Facility: [facility] Address: [address] [place] [address] Performed By: #### 5 7021-8, 24344-5 #### [facility] CLIA [id number] [address] [place], [place] [address] OF [facility] CNOVon 12-02-2024 CNOV Office Visit (FAMPWS ) NAVA HEALY ([id number]) 1945 M Date Time Provider Department 12/02/24 1:40 PM VIOLA PHLEPS [facility]WS During your visit today, we recorded the following information about you: Pulse Respiration Blood pressure Weight 67/minute 16/minute 145/76 54.9 kg Viola Phelps APRN.STONE DECORATOR 12/03/2024 2:32 PM Signed This is a [...] Didn't feel that it helped the pain. [place] that it caused him to be off [...] melatonin 1 mg chew Take by mouth. Hqqddgf-Bcqnnpwbmguav-Oxleg ine (EXCEDRIN) 250-250-65 mg per tablet Take [...] - IMMUNOCHEMICAL FECAL OCCULT BLOOD TEST - TAPE SEWING MACHINE OPERATOR [CONSULT TO SOCIAL WORK] Recheck weight in [...] loss [R63. (more content not included)... Normal [facility] Trisha 12-02-2024 CNPN Telephone (MARIUSZWST) NAVA HEALY ([id number]) 1945 M Date Time Provider Department 12/02/24 CALE MIX During your visit today, we recorded the following information about you: Cale Mix MSW 12/02/2024 2:46 PM Signed See [facility] 11/30 note. [facility] has mailed out [facility] Older Adult Resource Guide along with psychometric examiner agency options in [place]. Cale Mix MSW 12/02/2024 4:38 PM Signed [...] 1 mg chew Take by mouth. - Dnakteu-Yptcfoloycuou-Oydzs ine (EXCEDRIN) 250-250-65 mg per tablet Take [...] Encounter Status:Closed by CALE MIX on 12/02/[facility]FAMWS[facility] NAVA HEALY ([id number]) 1945 M Date Time Provider Department 11/30/24 [facility] During your visit today, we recorded [...] Fully Assessed Reason for Visit: Patient Question [3207] Prescriptions as of 11/30/2024 - glycopyrrolate (ROBINUL) [...] 1 mg chew Take by mouth. - Lhkawjz-Mneixbxamjocf-Grqkv ine (EXCEDRIN) 250-250-65 mg per tablet Take [...] Encounter Status:Closed by PATTIE BALDERRAMA on 11/30/24 [facility] ([id number]) 1945 M Date Time Provider Department 11/30/24 CALE MIX During your visit today, we recorded the following information about you: Cale Mix MSW 11/30/2024 2:12 PM Signed Patient called [facility] and would like this [facility] to mail him [place] [facility], [facility], [facility] resources. Mckinley [...] 1 mg chew Take by mouth. - Rapseoi-Snbqkwaznjcop-Bwpzv ine (EXCEDRIN) 250-250-65 mg per tablet Take [...] Encounter Status:Closed by CALE MIX on 12/02/24 [facility] Trisha 10-29-2024 [facility] Telephone (FRANCO) NAVA HEALY ([id number]) 1945 M Date Time Provider Department 10/29/24 CALE MIX During your visit today, we recorded the following information about you: Cale Mix MSW 10/29/2024 1:43 PM Signed M[facility] called patient to discuss home care vs. terminal worker care options. Sw will also discuss [facility] [employer] and [facility] as possible referrals to assist with information regarding psychometric examiner, [place] options in the community. No answer and vmail is full. Will try call again later. Cale Mix MSW 10/30/2024 10:27 AM Signed left message for patient to return call to discuss home care vs. Assisted living options in the area. Cale Mix MSW 11/06/2024 11:52 AM Signed left message for patient to return call to discuss psychometric examiner agency options in [place]. Allergies As of Date: 10/29/2024 Noted Allergy [...] 1 mg chew Take by mouth. - Hetdtud-Gkgqwdyxztsho-Cxnbu ine (EXCEDRIN) 250-250-65 mg per tablet Take [...] Status:Closed by CALE MIX on 11/06/24 Normal [facility] 25(OH)D3 SerPl-mCncon 2024 25-hydroxyvitamin D3 [Mass/Vol] 29.4 ng/mL Low 31.0-80.0 [facility] Comment on above: Order Comment: Speci men Type: BLOOD SPECIMEN Ordering Facility: [facility] Address: [address] [place] [address] Result Comment: Clas sification of 25 OH Vitamin D status: Deficiency/Insufficiency: < or = 30 ng/ml. Sufficiency/Optimal Levels: 31-80 ng/mL Toxicity: > 100 ng/mL. Test performed by chemiluminescent immunoassay. Performed By: #### 5 7021-8, 68178-4 #### [facility] CLIA [id number] [address] [place] [address] [place] CBC W Auto Differential pane l (Bld)on 10-28-2024 Basophils (Bld) [#/Vol] 0.10 10*3/uL Normal <0.11 [facility] Comment on above: Order Comment: Speci men Type: BLOOD SPECIMEN Ordering Facility: [facility] Address: [address] [place] [address] Performed By: #### 5 7021-8, 33618-1 #### [facility] CLIA [id number] [address] [place] [address] [place] Basophils/100 WBC (Bld) 1.1 % Normal [facility] Comment on above: Order Comment: Speci men Type: BLOOD SPECIMEN Ordering Facility: [facility] Address: [address] [place] [address] Performed By: #### 5 7021-8, 48548-2 #### [facility] CLIA [id number] [address] [place] [address] [place] Differential cell count method Nom (Bld) Auto Normal [facility] Comment on above: Order Comment: Speci men Type: BLOOD SPECIMEN Ordering Facility: [facility] Address: [address] [place] [address] Performed By: #### 5 7021-8, 59824-7 #### [facility] CLIA [id number] [address] [place] [address] [place] Eosinophils (Bld) [#/Vol] 0.16 10*3/uL Normal <0.46 [facility] Comment on above: Order Comment: Speci men Type: BLOOD SPECIMEN Ordering Facility: [facility] Address: [address] [place] [address] Performed By: #### 5 7021-8, 30889-4 #### [facility] CLIA [id number] [address] [place] [address] [place] Eosinophils/100 WBC (Bld) 1.7 % Normal [facility] Comment on above: Order Comment: Speci men Type: BLOOD SPECIMEN Ordering Facility: [facility] Address: [address] [place] [address] Performed By: #### 5 7021-8, 56184-4 #### [facility] CLIA [id number] [address] [place] [address] [place] Erythrocyte distribution width (RBC) [Ratio] 13.3 % Normal 11.5-15.0 [facility] Comment on above: Order Comment: Speci men Type: BLOOD SPECIMEN Ordering Facility: [facility] Address: [address] [place] [address] Performed By: #### 5 7021-8, 59836-6 #### [facility] CLIA [id number] [address] [place] [address] [place] Hematocrit (Bld) [Volume fraction] 41.4 % Normal 39.0-51.0 [facility] Comment on above: Order Comment: Speci men Type: BLOOD SPECIMEN Ordering Facility: [facility] Address: [address] [place] [address] Performed By: #### 5 7021-8, 36846-5 #### [facility] CLIA [id number] [address] [place] [address] [place] Hemoglobin (Bld) [Mass/Vol] 13.3 g/dL Normal 13.0-17.0 [facility] Comment on above: Order Comment: Speci men Type: BLOOD SPECIMEN Ordering Facility: [facility] Address: [address] [place] [address] Performed By: #### 5 7021-8, 35872-2 #### [facility] CLIA [id number] [address] [place] [address] [place] Immature granulocytes (Bld) [#/Vol] 10*3/uL Normal <0.10 [facility] Comment on above: Order Comment: Speci men Type: BLOOD SPECIMEN Ordering Facility: [facility] Address: [address] [place] [address] Performed By: #### 5 7021-8, 90932-7 #### [facility] CLIA [id number] [address] [place] [address] [place] Immature granulocytes/100 WBC (Bld) 0.2 % Normal [facility] Comment on above: Order Comment: Speci men Type: BLOOD SPECIMEN Ordering Facility: [facility] Address: [address] [place] [address] Performed By: #### 5 7021-8, 57455-5 #### [facility] CLIA [id number] [address] [place] [address] [place] Lymphocytes (Bld) [#/Vol] 1.05 10*3/uL Normal 1.00-4.00 [facility] Comment on above: Order Comment: Speci men Type: BLOOD SPECIMEN Ordering Facility: [facility] Address: [address] [place] [address] Performed By: #### 5 7021-8, 58348-0 #### [facility] CLIA [id number] [address] [place] [address] [place] Lymphocytes/100 WBC (Bld) 11.3 % Normal [facility] Comment on above: Order Comment: Speci men Type: BLOOD SPECIMEN Ordering Facility: [facility] Address: [address] [place] [address] Performed By: #### 5 7021-8, 43661-9 #### [facility] CLIA [id number] [address] [place] [address] [place] MCH (RBC) [Entitic mass] 33.1 pg Normal 26.0-34.0 [facility] Comment on above: Order Comment: Speci men Type: BLOOD SPECIMEN Ordering Facility: [facility] Address: [address] [place] [address] Performed By: #### 5 7021-8, 20434-9 #### [facility] CLIA [id number] [address] [place] [address] [place] MCHC (RBC) [Mass/Vol] 32.1 g/dL Normal 30.5-36.0 [facility] Comment on above: Order Comment: Speci men Type: BLOOD SPECIMEN Ordering Facility: [facility] Address: [address] [place] [address] Performed By: #### 5 7021-8, 97843-2 #### [facility] CLIA [id number] [address] [place] [address] [place] MCV (RBC) [Entitic vol] 103.0 fL High 80.0-100.0 [facility] Comment on above: Order Comment: Speci men Type: BLOOD SPECIMEN Ordering Facility: [facility] Address: [address] [place] [address] Performed By: #### 5 7021-8, 59710-3 #### [facility] CLIA [id number] [address] [place] [address] [place] Monocytes (Bld) [#/Vol] 0.66 10*3/uL Normal <0.87 [facility] Comment on above: Order Comment: Speci men Type: BLOOD SPECIMEN Ordering Facility: [facility] Address: [address] [place] [address] Performed By: #### 5 7021-8, 18797-0 #### [facility] CLIA [id number] [address] [place] [address] [place] Monocytes/100 WBC (Bld) 7.1 % Normal [facility] Comment on above: Order Comment: Speci men Type: BLOOD SPECIMEN Ordering Facility: [facility] Address: [address] [place] [address] Performed By: #### 5 7021-8, 55904-3 #### [facility] CLIA [id number] [address] [place] [address] [place] Neutrophils (Bld) [#/Vol] 7.34 10*3/uL Normal 1.45-7.50 [facility] Comment on above: Order Comment: Speci men Type: BLOOD SPECIMEN Ordering Facility: [facility] Address: [address] [place] [address] Performed By: #### 5 7021-8, 28596-3 #### [facility] CLIA [id number] [address] [place] [address] [place] Neutrophils/100 WBC (Bld) 78.6 % Normal [facility] Comment on above: Order Comment: Speci men Type: BLOOD SPECIMEN Ordering Facility: [facility] Address: [address] [place] [address] Performed By: #### 5 7021-8, 00376-9 #### [facility] CLIA [id number] [address] [place] [address] [place] Nucleated RBC (Bld) [#/Vol] 10*3/uL Normal <0.01 [facility] Comment on above: Order Comment: Speci men Type: BLOOD SPECIMEN Ordering Facility: [facility] Address: [address] [place] [address] Performed By: #### 5 7021-8, 32767-3 #### [facility] CLIA [id number] [address] [place] [address] [place] Nucleated RBC/100 WBC (Bld) [Ratio] 0.0 /100 WBC Normal [facility] Comment on above: Order Comment: Speci men Type: BLOOD SPECIMEN Ordering Facility: [facility] Address: [address] [place] [address] Performed By: #### 5 7021-8, 06863-8 #### [facility] CLIA [id number] [address] [place] [address] [place] Platelet mean volume (Bld) [Entitic vol] 10.8 fL Normal 9.0-12.7 [facility] Comment on above: Order Comment: Speci men Type: BLOOD SPECIMEN Ordering Facility: [facility] Address: [address] [place] [address] Performed By: #### 5 7021-8, 58602-5 #### [facility] CLIA [id number] [address] [place] [address] [place] Platelets (Bld) [#/Vol] 282 10*3/uL Normal 150-400 [facility] Comment on above: Order Comment: Speci men Type: BLOOD SPECIMEN Ordering Facility: [facility] Address: [address] [place] [address] Performed By: #### 5 7021-8, 71637-8 #### [facility] CLIA [id number] [address] [place] [address] [place] RBC (Bld) [#/Vol] 4.02 10*6/uL Low 4.20-6.00 [facility] Comment on above: Order Comment: Speci men Type: BLOOD SPECIMEN Ordering Facility: [facility] Address: [address] [place] [address] Performed By: #### 5 7021-8, 00004-0 #### [facility] CLIA [id number] [address] [place] [address] [place] WBC (Bld) [#/Vol] 9.33 10*3/uL Normal 3.70-11.00 [facility] Comment on above: Order Comment: Speci men Type: BLOOD SPECIMEN Ordering Facility: [facility] Address: [address] [place] [address] Performed By: #### 5 7021-8, 28014-1 #### [facility] CLIA [id number] [address] [place] [id number] OF [facility] CNOVon 10-28-2024 CNOV Office Visit (FAMPWS ) NAVA HEALY ([id number]) 1945 M Date Time Provider Department 10/28/24 2:00 PM VIOLA PHELPS During your visit today, we recorded the following information about you: Pulse Respiration Blood pressure 76/minute 16/minute 118/72 Viola Phelps APRN.STONE DECORATOR 10/28/2024 5:33 PM Signed This is a [...] melatonin 1 mg chew Take by mouth. Nrmvwob-Nppzlzheiorys-Hjimz ine (EXCEDRIN) 250-250-65 mg per tablet Take [...] BLOOD COUNT AND DIFFERENTIAL [SQCBCDIF] Order #: [id number] FUTURE COMPREHENSIVE METABOLIC PANEL [SQCMP] Order #: [id number] FUTURE THYROID STIMULATING HORMONE (more content not included)... Normal [facility] Trisha 10-28-2024 JEZN Telephone (FAMChasWS) NAVA HEALY ([id number]) 1945 M Date Time Provider Department 10/28/24 [...] eliminate the excessive slobbering. MILAD Payton Christy, APRN.STONE DECORATOR 10/30/2024 1:29 PM Signed Can please let [...] pill twice daily as needed. Viola Phelps APRN.Prdaeep Gaspar LPN 10/30/2024 3:04 PM Signed Pt notified. He verbalized understanding. Pradeep Angel LPN Allergies As of Date: 10/28/2024 Noted Allergy Reaction BANANA 10/13/2018 8 - GI Upset Comments: bloating Date Reviewed: 10/28/2024 Reviewed by: Pradeep Angel LPN - Fully Assessed Reason for Visit: Patient Question [9847] Order(s):glycopyrrolate (ROBINUL) 1 mg tabletTake 1 tablet [...] 1 mg chew Take by mouth. - Bdbbohv-Yrzxnttbumatm-Lcamb ine (EXCEDRIN) 250-250-65 mg per tablet Take [...] Status:Closed by PRADEEP ANGEL on 10/30/24 Normal [facility] Comprehensive metabolic 2000 panelon 10-28-2024 Albumin [Mass/Vol] 4.1 g/dL Normal 3.9-4.9 [facility] Comment on above: Order Comment: Speci men Type: BLOOD SPECIMEN Ordering Facility: [facility] Address: [address] [place] [address] Performed By: #### 2 4323-8, 3024-7, 6-3 #### [facility] CLIA [id number] [address] [place] [address] [place] ALP [Catalytic activity/Vol] 65 U/L Normal 38-113 [facility] Comment on above: Order Comment: Speci men Type: BLOOD SPECIMEN Ordering Facility: [facility] Address: [address] [place] [address] Performed By: #### 2 4323-8, 3024-7, 3016-3 #### [facility] CLIA [id number] [address] [place] [address] [place] ALT [Catalytic activity/Vol] 17 U/L Normal 10-54 [facility] Comment on above: Order Comment: Speci men Type: BLOOD SPECIMEN Ordering Facility: [facility] Address: [address] [place] [address] Performed By: #### 2 4323-8, 3024-7, 3016-3 #### [facility] CLIA [id number] [address] [place] [address] [place] Anion gap [Moles/Vol] 9 mmol/L Normal 8-15 [facility] Comment on above: Order Comment: Speci men Type: BLOOD SPECIMEN Ordering Facility: [facility] Address: [address] [place] [address] Performed By: #### 2 4323-8, 3024-7, 3016-3 #### [facility] CLIA [id number] [address] [place] [address] [place] AST [Catalytic activity/Vol] 23 U/L Normal 14-40 [facility] Comment on above: Order Comment: Speci men Type: BLOOD SPECIMEN Ordering Facility: [facility] Address: [address] [place] [address] Performed By: #### 2 4323-8, 302-7, 6-3 #### [facility] CLIA [id number] [address] [place] [address] [place] Bilirubin [Mass/Vol] 0.5 mg/dL Normal 0.2-1.3 [facility] Comment on above: Order Comment: Speci men Type: BLOOD SPECIMEN Ordering Facility: [facility] Address: [address] [place] [address] Performed By: #### 2 4323-8, 3024-7, 3016-3 #### [facility] CLIA [id number] [address] [place] [address] [place] Calcium [Mass/Vol] 9.6 mg/dL Normal 8.5-10.2 [facility] Comment on above: Order Comment: Speci men Type: BLOOD SPECIMEN Ordering Facility: [facility] Address: [address] [place] [address] Performed By: #### 2 4323-8, 3024-7, 3016-3 #### [facility] CLIA [id number] [address] [place] [address] [place] Chloride [Moles/Vol] 104 mmol/L Normal 98-107 [facility] Comment on above: Order Comment: Speci men Type: BLOOD SPECIMEN Ordering Facility: [facility] Address: [address] [place] [address] Performed By: #### 2 4323-8, 3024-7, 3016-3 #### [facility] CLIA [id number] [address] [place] [address] [place] CO2 [Moles/Vol] 25 mmol/L Normal 22-30 [facility] Comment on above: Order Comment: Speci men Type: BLOOD SPECIMEN Ordering Facility: [facility] Address: [address] [place] [address] Performed By: #### 2 4323-8, 3024-7, 3016-3 #### [facility] CLIA [id number] [address] [place] [address] [place] Creatinine [Mass/Vol] 0.98 mg/dL Normal 0.73-1.22 [facility] Comment on above: Order Comment: Speci men Type: BLOOD SPECIMEN Ordering Facility: [facility] Address: [address] [place] [address] Performed By: #### 2 4323-8, 3024-7, 3016-3 #### [facility] CLIA [id number] [address] [place] [address] [place] Creatinine and Glomerular filtration rate.predicted panel (S/P/Bld) 78 mL/min/1.73m??? Normal >=60 [facility] Comment on above: Order Comment: Speci men Type: BLOOD SPECIMEN Ordering Facility: [facility] Address: [address] [place] [address] Result Comment: Cecy mated Glomerular Filtration Rate [...] By: #### 2 4323-8, 3024-7, 6-3 #### [facility] CLIA [id number] [address] [place] [address] [place] Glucose [Mass/Vol] 74 mg/dL Normal 74-99 [facility] Comment on above: Order Comment: Evelyn polo Type: BLOOD SPECIMEN Ordering Facility: [facility] Address: [address] [place] [address] Result Comment: The [place] Diabetes Association (ADA) provides guidance for cutoff [...] Standards of Medical Care in Diabetes 2016, [place] Diabetes Association. Diabetes Care. 2016.39(Suppl 1). Performed By: #### 2 4323-8, 3023-7, 3015-3 #### [facility] CLIA [id number] [address] [place], [place] [address] [place] Potassium [Moles/Vol] 4.6 mmol/L Normal 3.7-5.1 [facility] Comment on above: Order Comment: Evelyn polo Type: BLOOD SPECIMEN Ordering Facility: [facility] Address: [address] [place], [place] [address] Performed By: #### 2 4323-8, 3023-7, 3016-3 #### [facility] CLIA [id number] [address] [place] [address] [place] Protein [Mass/Vol] 7.6 g/dL Normal 6.3-8.0 [facility] Comment on above: Order Comment: Speci men Type: BLOOD SPECIMEN Ordering Facility: [facility] Address: [address] [place] [address] Performed By: #### 2 4323-8, 302-7, 3016-3 #### [facility] CLIA [id number] [address] [place], [place] [address] [place] Sodium [Moles/Vol] 138 mmol/L Normal 136-144 [facility] Comment on above: Order Comment: Speci men Type: BLOOD SPECIMEN Ordering Facility: [facility] Address: [address] [place] [address] Performed By: #### 2 4323-8, 302-7, 3015-3 #### [facility] CLIA [id number] [address] [place] [address] [place] Urea nitrogen [Mass/Vol] 12 mg/dL Normal 9-24 [facility] Comment on above: Order Comment: Speci men Type: BLOOD SPECIMEN Ordering Facility: [facility] Address: [address] [place] [address] Performed By: #### 2 4323-8, 302-7, 6-3 #### [facility] CLIA [id number] [address] [place], [place] [address] [place] T4 Free SerPl-mCncon 025 Free T4 [Mass/Vol] 1.3 ng/dL Normal 0.9-1.7 [facility] Comment on above: Order Comment: Speci men Type: BLOOD SPECIMEN Ordering Facility: [facility] Address: [address] [place] [address] Performed By: #### 2 4323-8, 302-7, 6-3 #### [facility] CLIA [id number] [address] [place] [address] [place] TSH SerPl-aCncon 10-28-2024 TSH Qn 1.630 m[IU]/L Normal 0.270-4.200 [facility] Comment on above: Order Comment: Speci men Type: BLOOD SPECIMEN Ordering Facility: [facility] Address: [address] [place] [address] Performed By: #### 2 4323-8, 3024-7, 3016-3 #### [facility] CLIA [id number] [address] [place] [address] [place] CNOVon 10-27-2024 CNOV Office Visit (VANE ) NAVA HEALY ([id number]) 1945 M Date Time Provider Department 10/27/24 [...] habits GENITOURINARY: (more content not included)... Normal [facility] 08-18-2024 JEZN Telephone (RENEE) NAVA HEALY ([id number]) 1945 M Date Time Provider Department 08/18/24 [...] 1 mg chew Take by mouth. - Xylkzbn-Rmwbhbnpcsqkf-Tsewd ine (EXCEDRIN) 250-250-65 mg per tablet Take [...] Status:Closed by SUDARSHAN MENA on 08/21/24 Normal [facility] ECHOon 08-13-2024 Echocardiography Echocardiography Rep ort: Transthoracic Echo [facility] Date of service: 08/13/2024 2:49:05 PM OPERATOR Ordering physician: VIOLA PHELPS Indication: Palpitations Technologist: Janna Cotter [facility] Interpreting physician: Fara Gould MD PATIENT: Name: [...] * * * Final * * * AudioTag Medical Image : [id number] Normal [facility] Trisha 07-30-2024 JEZN Telephone (NAVWST) NAVA HEALY ([id number]) 1945 Date Time Provider Department 07/30/24 CALE MIX During your visit today, we recorded the following information about you: JuwanleonlillianamiguelMarkoin, CABINET FINISHER 07/30/2024 10:32 AM Signed Sw left patient message to have call returned in regards to transportation resource options in the community for medical and non medical appts. Cale iMx, CABINET FINISHER 07/31/2024 2:13 PM Signed Patient reports that his issue with transportation is when he has had to go to [place]. Patient notes I don't like riding that far to [place] and I want to have more of my visits done locally. Patient reports that he is looking for help around the home ie. Light housekeeping, meal prep, laundry, possibly personal care. Sw noted [facility] and [facility]. Patient also mentioned possibly looking at independent and assisted living options. Sw noted that [facility] is an agency that has been helpful to individuals looking at independent and assisted living options. [facility] also a good agency with resource options. Sw noted that she would work on compiling home care and [facility] resource guide and mail out [...] 1 mg chew Take by mouth. - Mzuxupt-Fkeogggmtlrba-Optae ine (EXCEDRIN) 250-250-65 mg per tablet Take 1 tablet by mouth every 6 hours as needed. - vitamin B complex (B COMPLEX ORAL) Take by mouth. Problem List As Of Date 07/30/2024 Noted Resolved Acquired hypothyroidism [E03.9] 05/06/2016 DDD (degenerative disc disease), lumbar [M51.36*10/13/2018 Lumbar foraminal stenosis [M48.061] 05/11/2021 Parkinson's syndrome (HCC) [G20.A1] 10/30/2022 Encounter Status:Closed by CALE MIX on 08/03/24 Normal [facility] CNOVon 07-28-2024 CNOV Office Visit (FAMPWS ) NAVA HEALY ([id number]) 1945 M Date Time Provider Department 07/28/24 1:00 PM [facility] During your visit today, we recorded the following information about you: Pulse Respiration Blood pressure 84/minute 16/minute 128/76 Viola Phelps APRN.STONE DECORATOR 07/29/2024 11:13 PM Signed This is a [...] melatonin 1 mg chew Take by mouth. Kbeuryq-Tjswypvsdbkgw-Dhqtu ine (EXCEDRIN) 250-250-65 mg per tablet Take [...] neurology. 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 Check with the [place] re: insurance coverage for a home heart [...] [M48.061] Encounter for immunization [Z23] Order(s):CONSULT TO [facility] [061076] Order #: [id number]: 1 FUTURE PRIMARY CARE SOCIAL WORK CONSULT [1209424] Order #: [id number] (more content not included)... [facility] (4CQ) NAVA HEALY ([id number]) 1945 M Date Time Provider Department 06/10/24 Basilio ABRAHAM 4CQ During your visit today, we recorded the following information about you: Bernice Pelayo 06/10/2024 2:12 PM Signed Pt called in stating he has Parkinsons and is requesting Gene therapy [facility]. Please advise. Thank you Lilli Goyal LPN 06/10/2024 3:09 PM Signed He was contacted through [facility] and was concerned regarding travel to [place]. Should this referral be coming from us [...] 1 mg chew Take by mouth. - Qwpqtfg-Iezujpjrkevik-Lwcle ine (EXCEDRIN) 250-250-65 mg per tablet Take 1 tablet by mouth every 6 hours as needed. - vitamin B complex (B COMPLEX ORAL) Take by mouth. Problem List As Of Date 06/10/2024 Noted Resolved Acquired hypothyroidism [E03.9] 05/06/2016 DDD (degenerative disc disease), lumbar [M51.36]10/13/2018 Lumbar foraminal stenosis [M48.061] 05/11/2021 Parkinson's syndrome (HCC) [G20.A1] 10/30/2022 Encounter Status:Closed by PRADEEP ANGEL on 06/10/24 Normal [facility] Basic Metabolic Profile (BMP )on 05-18-2024 BUN/CRE 14.5 RATIO Normal 10-20 [facility] Comment on above: Performed By: #### L 501.9520, L501.5200, L500.2500, L100.0100 #### [facility] [address] [place], [address] CA,Total 9.3 mg/dL Normal 8.5-10.1 [facility] Comment on above: Performed By: #### L 501.9520, L501.5200, L500.2500, L100.0100 #### [facility] [address] [place], [address] Chloride [Moles/Vol] 106 mmol/L Normal 98-107 [facility] Comment on above: Performed By: #### L 501.9520, L501.5200, L500.2500, L100.0100 #### [facility] [address] [place], [address] CO2 [Moles/Vol] 30.0 mmol/L Normal 21.0-32.0 [facility] Comment on above: Performed By: #### L 501.9520, L501.5200, L500.2500, L100.0100 #### [facility] [address] [place], [address] Creatinine [Mass/Vol] 1.24 mg/dL Normal 0.70-1.30 [facility] Comment on above: Result Comment: The validity of the calculated GFR GFRAA in patients over 70 years has not been determined. Clinical correlation is essential. Performed By: #### L 501.9520, L501.5200, L500.2500, L100.0100 #### [facility] [address] [place], [address] ECRCL 38.40 ml/min Normal [facility] Comment on above: Performed By: #### L 501.9520, L501.5200, L500.2500, L100.0100 #### [facility] [address] [place], [address] EST GFR - AA 72 mL/min Normal >60 [facility] Comment on above: Result Comment: Afri can [place] GFR Calc Performed By: #### L 501.9520, L501.5200, L500.2500, L100.0100 #### [facility] [address] [place], [address] GAP 4 Low 5-15 [facility] Comment on above: Performed By: #### L 501.9520, L501.5200, L500.2500, L100.0100 #### [facility] [address] [place], [address] GFR/1.73 sq M.predicted among non-blacks MDRD (S/P/Bld) [Vol rate/Area] 60 mL/min/{1.73_m2} Normal >60 [facility] Comment on above: Result Comment: Non- GFR Calc Performed By: #### L 501.9520, L501.5200, L500.2500, L100.0100 #### [facility] [address] [place], [address] Glucose [Mass/Vol] 118 mg/dL High 74-106 [facility] Comment on above: Result Comment: Fast ing Glucose result from 100 to 125 mg/dL suggests IMPAIRED HOMEOSTASIS per A.D.A. criteria. Performed By: #### L 501.9520, L501.5200, L500.2500, L100.0100 #### [facility] [address] [place], [address] Potassium [Moles/Vol] 4.3 mmol/L Normal 3.5-5.1 [facility] Comment on above: Result Comment: Slig ht Hemolysis, Result may be falsely increased. Performed By: #### L 501.9520, L501.5200, L500.2500, L100.0100 #### [facility] [address] [place], [address] Sodium [Moles/Vol] 140 mmol/L Normal 136-145 [facility] Comment on above: Performed By: #### L 501.9520, L501.5200, L500.2500, L100.0100 #### [facility] [address] [place], [address] Urea nitrogen [Mass/Vol] 18 mg/dL Normal 7-18 [facility] Comment on above: Performed By: #### L 501.9520, L501.5200, L500.2500, L100.0100 #### [facility] [address] [place], [address] CBC W/Diff, Automatedon 08 Absolute Lymph 1.21 X10 3/uL Normal 0.83-4.51 [facility] Comment on above: Performed By: #### L 501.9520, L501.5200, L500.2500, L100.0100 #### [facility] [address] [place], [address] Absolute Neut 6.5 X10 3/uL Normal 2.0-7.7 [facility] Comment on above: Performed By: #### L 501.9520, L501.5200, L500.2500, L100.0100 #### [facility] [address] [place], [address] Basophils/100 WBC (Bld) 1.2 % High 0-1 [facility] Comment on above: Performed By: #### L 501.9520, L501.5200, L500.2500, L100.0100 #### [facility] [address] [place], [address] Eosinophils/100 WBC (Bld) 0.8 % Normal 0-5 [facility] Comment on above: Performed By: #### L 501.9520, L501.5200, L500.2500, L100.0100 #### [facility] [address] [place], [address] Erythrocyte distribution width (RBC) [Ratio] 12.7 % Normal 11.6-14.6 [facility] Comment on above: Performed By: #### L 501.9520, L501.5200, L500.2500, L100.0100 #### [facility] [address] [place], [address] Hematocrit (Bld) [Volume fraction] 42.5 % Normal 40-54 [facility] Comment on above: Performed By: #### L 501.9520, L501.5200, L500.2500, L100.0100 #### [facility] [address] [place], [address] Hemoglobin (Bld) [Mass/Vol] 13.9 g/dL Normal 13.0-16.5 [facility] Comment on above: Performed By: #### L 501.9520, L501.5200, L500.2500, L100.0100 #### [facility] [address] [place], [address] IG% 0.400 Normal 0.0-0.9 [facility] Comment on above: Result Comment: IG% - Immature Granulocytes (promyelocytes, myelocytes and metamyelocytes) > 1% indicates that a LEFT SHIFT is Present. Performed By: #### L 501.9520, L501.5200, L500.2500, L100.0100 #### [facility] [address] [place], [address] Lymphocytes/100 WBC (Bld) 14.3 % Low 19-41 [facility] Comment on above: Performed By: #### L 501.9520, L501.5200, L500.2500, L100.0100 #### [facility] [address] [place], [address] MCH (RBC) [Entitic mass] 32.9 pg High 27.0-32.0 [facility] Comment on above: Performed By: #### L 501.9520, L501.5200, L500.2500, L100.0100 #### [facility] [address] [place], [address] MCHC (RBC) [Mass/Vol] 32.7 g/dL Normal 32-36 [facility] Comment on above: Performed By: #### L 501.9520, L501.5200, L500.2500, L100.0100 #### [facility] [address] [place], [address] MCV (RBC) [Entitic vol] 100.7 fL High 80-94 [facility] Comment on above: Performed By: #### L 501.9520, L501.5200, L500.2500, L100.0100 #### [facility] [address] [place], [address] Monocytes/100 WBC (Bld) 6.0 % Normal 0-10 [facility] Comment on above: Performed By: #### L 501.9520, L501.5200, L500.2500, L100.0100 #### [facility] [address] [place], [address] Neutrophils/100 WBC (Bld) 77.3 % High 47-70 [facility] Comment on above: Performed By: #### L 501.9520, L501.5200, L500.2500, L100.0100 #### [facility] [address] [place], [address] Nucleated RBC (Bld) [#/Vol] 0 10*3/uL Normal 0-5 [facility] Comment on above: Performed By: #### L 501.9520, L501.5200, L500.2500, L100.0100 #### [facility] [address] [place], [address] Platelet mean volume (Bld) [Entitic vol] 10.1 fL Normal 6.2-12.0 [facility] Comment on above: Performed By: #### L 501.9520, L501.5200, L500.2500, L100.0100 #### [facility] [address] [place], [address] Platelets (Bld) [#/Vol] 254 10*3/uL Normal 150-450 [facility] Comment on above: Performed By: #### L 501.9520, L501.5200, L500.2500, L100.0100 #### [facility] [address] [place], [address] RBC (Bld) [#/Vol] 4.22 10*6/uL Low 4.6-6.2 [facility] Comment on above: Performed By: #### L 501.9520, L501.5200, L500.2500, L100.0100 #### [facility] [address] [place], [address] RDW SD 47.1 fl High 35.1-43.9 [facility] Comment on above: Performed By: #### L 501.9520, L501.5200, L500.2500, L100.0100 #### [facility] [address] [place], [address] WBC (Bld) [#/Vol] 8.5 10*3/uL Normal 4.4-11.0 [facility] Comment on above: Performed By: #### L 501.9520, L501.5200, L500.2500, L100.0100 #### [facility] [address] [place], [address] Emergency Department Summary on 05-18-2024 Emergency Department Summary [facility] Medical Records Department [address] [place] [address] Emergency Department Summary 05/18/24 MR#: [id number] Acct: [id number] Name: NAVA HEALY Rep #: [id number] : 1945 79 From: Todd Burnham DO [...] his house and therefore EMS was contacted [facility] Medical History (Updated 05/19/24 @ 02:[address] Todd Burnham, ) Parkinsons disease Osteoarthritis of carpometacarpal joint of left thumb Home Medications ???Medication ???Instructions ???Recorded ???Last Taken ???Type jweigbt-hpzadshjrlqwg-klirp ine 250 1 tab PO ONCE 09/06/22 [...] x3 and (more content not included)... Normal [facility] Femur Min 2 Viewson 05-18-20 Femur Min 2 Views [facility] [address] [place] [address] Femur Min 2 Views MR#: [id number] Acct: [id number] Name: NAVA HEALY Rep #: [id number] : 1945 M 79 From: Nicole Butler PCP: HARI Nunez Status: DEP ER Study: Femur Min 2 Views Date of Exam: 05/18/24 Exam# [id number] Ordering Dr: Todd Burnham DO [id number] INDICATION: pain MULTIPLE FALLS OVER LAST COUPLE DAYS EXAMINATION/TECHNIQUE: X-RAY - LEFT XR Femur Min 2 Views 4 VIEWS COMPARISON: No relevant prior comparison study available FINDINGS: BONES: No fracture demonstrated. JOINTS: No dislocation. SOFT TISSUES: Unremarkable. RAD/Femur Min 2 Views IMPRESSION: No evidence of fracture. Electronically Signed: Nicole Sommer MD at 4:59 EDT , CC: Todd Burnham DO; HARI Nunez Jury Consultant: Signed Normal [facility] Magnesiumon 05-18-2024 Magnesium [Mass/Vol] 2.7 mg/dL High 1.6-2.6 [facility] Comment on above: Result Comment: Slig ht Hemolysis, Result may be falsely increased. Performed By: #### L 501.9520, L501.5200, L500.2500, L100.0100 #### [facility] [address] [facility] [place], [address] Pelvis 1 or 2 Viewson 2023 Pelvis 1 or 2 Views [facility] [address] [place], [place] [address] Pelvis 1 or 2 Views MR#: [id number] Acct: [id number] Name: NAVA HEALY Rep #: [id number] : 1945 M 79 From: Nicole Butler PCP: HARI Nunez Status: DEP ER Study: Pelvis 1 or 2 Views Date of Exam: 05/18/24 Exam# [id number] Ordering Dr: Todd Burnham DO [id number] INDICATION: pain MULTIPLE FALLS OVER LAST COUPLE [...] 4:58 EDT Reading Location ID and State: [facility] / [place] Tel , Service support , CC: Todd Burnham DO; HARI Nunez Jury Consultant: Signed Normal [facility] Thoracic Spine 3 Viewson Thoracic Spine 3 Views [facility] Imaging Services [address] [place], [place] [address] Thoracic Spine 3 Views MR#: [id number] Acct: [id number] Name: NAVA HEALY Rep #: [id number] : 1945 M 79 From: Nicole Butler PCP: HARI Nunez Status: DEP ER Study: Thoracic Spine 3 Views Date of Exam: 05/18/24 Exam# [id number] Ordering Dr: Todd Burnham DO [id number] INDICATION: pain MULTIPLE FALLS OVER LAST COUPLE [...] , CC: Todd Burnham DO; HARI Nunez Jury Consultant: Signed Normal [facility] Thyroid Stim Hormone (TSH)on 05-18-2024 TSH 1.140 uIU/mL Normal 0.358-3.740 [facility] Comment on above: Performed By: #### L 501.9520, L501.5200, L500.2500, L100.0100 #### [facility] [address] [place], [address] [facility] 05-05-2024 [facility] Telephone (NREUS2) NAVA HEALY ([id number]) 1945 M Date Time Provider Department 05/05/24 ELLIE CORTES NREUS2 During your visit today, we recorded the following information about you: Ellie Cortes, Research Coordinator 05/05/2024 3:16 PM Signed LVM regarding PDGene study. Ellie Cortes, Toy Stuffer Allergies As of Date: 05/05/2024 Noted Allergy [...] 1 mg chew Take by mouth. - Jzppgxk-Ysapvjpzwlfap-Sefhm ine (EXCEDRIN) 250-250-65 mg per tablet Take 1 tablet by mouth every 6 hours as needed. - vitamin B complex (B COMPLEX ORAL) Take by mouth. Problem List As Of Date 05/05/2024 Noted Resolved Acquired hypothyroidism [E03.9] 05/06/2016 DDD (degenerative disc disease), lumbar [M51.36]10/13/2018 Lumbar foraminal stenosis [M48.061] 05/11/2021 Parkinson's syndrome (HCC) [G20.A1] 10/30/2022 Encounter Status:Closed by ELLIE CORTES on 05/05/24 [facility] 04-17-2024 CNPN Telephone (NREUS2) NAVA HEALY ([id number]) 1945 M Date Time Provider Department 04/17/24 ALLEN MERRILL NRJESENIAS2 During your visit today, we recorded the following information about you: Allen Merrill, Research Coordinator 04/17/2024 11:28 AM Signed Attempted to contact the patient regarding Tele-DIRECTOR DANCE study. [facility] Allen Merrill, Research Coordinator 04/21/2024 12:16 PM Signed Pt returned call regarding VM left about Tele-DIRECTOR DANCE. Pt is mostly interested in stem cell treatments or studies. Pt has concerns about transportation to [place] from place of residence and does not want to participate in Tele-DIRECTOR DANCE. Pt was interested in learning more about [...] 1 mg chew Take by mouth. - Olfednr-Puepypfrrkswl-Bsyyq ine (EXCEDRIN) 250-250-65 mg per tablet Take 1 tablet by mouth every 6 hours as needed. - vitamin B complex (B COMPLEX ORAL) Take by mouth. Problem List As Of Date 04/17/2024 Noted Resolved Acquired hypothyroidism [E03.9] 05/06/2016 DDD (degenerative disc disease), lumbar [M51.36]10/13/2018 Lumbar foraminal stenosis [M48.061] 05/11/2021 Parkinson's syndrome (HCC) [G20.A1] 10/30/2022 Encounter Status:Closed by ALLEN MERRILL on 04/17/24 [facility] 04-15-2024 [facility] Telephone ([facility]) NAVA HEALY ([id number]) 1945 M Date Time Provider Department 04/15/24 YINKA LAMA [facility] During your visit today, we recorded the [...] for the help. 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 Discussed that it looks like someone also was trying to get him in contact with the PDGene study. Provided [facility] line for a call back with questions. Serenity Baer Genetic Counselor Assembler Dielectric Heater Allergies As of Date: 04/15/2024 Noted Allergy Reaction BANANA 10/13/2018 8 - GI Upset Comments: bloating Date Reviewed: 04/06/2024 Reviewed by: Pradeep Angel LPN - Fully Assessed Reason for Visit: Patient Question [7527] Cmt: Genetics Prescriptions as of 04/22/2024 - levothyroxine (SYNTHROID) 50 mcg tablet take 1 tablet by mouth every morning ON AN EMPTY STOMACH FOR THYROID - melatonin 1 mg chew Take by mouth. - Qmroblc-Egwesbcgjkqzl-Ycoxb ine (EXCEDRIN) 250-250-65 mg per tablet Take 1 tablet by mouth every 6 hours as needed. - vitamin B complex (B COMPLEX ORAL) Take by mouth. Problem List As Of Date 04/15/2024 Noted Resolved Acquired hypothyroidism [E03.9] 05/06/2016 DDD (degenerative disc disease), lumbar [M51.36]10/13/2018 Lumbar foraminal stenosis [M48.061] 05/11/2021 Parkinson's syndrome (HCC) [G20.A1] 10/30/2022 Encounter Status:Closed by SERENITY BAER on 04/15/24 Normal [facility] HbA1c (Bld)on 04-09-2024 Average glucose Estimated from glycated hemoglobin (Bld) [Mass/Vol] 114 mg/dL [facility] Comment on above: eAG: (Estimated aver age glucose) is a calculated value from HgbA1c and is hardware supplies sales representative of the average blood glucose level in the last 2-3 month period. HbA1c (Bld) [Mass fraction] 5.6 % 4.3 - 5.6 % [facility] Comment on above: [place] Diabetes As sociation guidelines indicate that patients with HgbA1c in the range 5.7-6.4% are at increased risk for development of diabetes, and intervention by lifestyle modification may be beneficial. HgbA1c greater or equal to 6.5% is considered diagnostic of diabetes. [facility] Trisha 04-07-2024 [facility] Telephone ([facility]) NAVA HEALY ([id number]) 1945 M Date Time Provider Department 04/07/24 [...] sure. Advised pt that part of the [facility] lab is testing (Glucose) and if the [...] those drawn. Noelle Gruber MA, Viola Phelps APRN.STONE DECORATOR 04/10/2024 12:54 PM Signed Can please let [...] Fully Assessed Reason for Visit: Lab Orders [6158] Results [95] Primary Visit Diagnosis:Generalized weakness [R53.1] Other Visit Diagnosis:Abnormal finding of blood chemistry, unspecified [R79.9] Order(s):HEMOGLOBIN A1C [GXZVM9M] Order #: [id number] FUTURE Prescriptions as of 04/10/2024 - levothyroxine (SYNTHROID) 50 mcg tablet take 1 tablet by mouth every morning ON AN EMPTY STOMACH FOR THYROID - melatonin 1 mg chew Take by mouth. - Cagflkf-Vytvmfwbyrceo-Hdrrv ine (EXCEDRIN) 250-250-65 mg per tablet Take 1 tablet by mouth every 6 hours as needed. - vitamin B complex (B COMPLEX ORAL) Take by mouth. Problem List As Of Date 04/07/2024 Noted Resolved Acquired hypothyroidism [E03.9] 05/06/2016 DDD (degenerative disc disease), lumbar [M51.36]10/13/2018 Lumbar foraminal stenosis [M48.061] 05/11/2021 Parkinson's syndrome (HCC) [G20.A1] 10/30/2022 Encounter Status:Closed by PRADEEP ANGEL on 04/10/24 Normal [facility] CBC W Auto Differential pane l (Bld)on 04-06-2024 Basophils (Bld) [#/Vol] 0.11 10*3/uL High <0.11 [facility] Comment on above: Order Comment: Speci men Type: BLOOD SPECIMEN Ordering Facility: [facility] Address: [address] [place] [address] Performed By: #### 5 7021-8, 40229-7 #### [facility] CLIA [id number] [address] [place] [address] [place] Basophils/100 WBC (Bld) 1.8 % Normal [facility] Comment on above: Order Comment: Speci men Type: BLOOD SPECIMEN Ordering Facility: [facility] Address: [address] [place] [address] Performed By: #### 5 7021-8, 58870-3 #### [facility] CLIA [id number] [address] [place] [address] [place] Differential cell count method Nom (Bld) Auto Normal [facility] Comment on above: Order Comment: Speci men Type: BLOOD SPECIMEN Ordering Facility: [facility] Address: [address] [place] [address] Performed By: #### 5 7021-8, 16169-9 #### [facility] CLIA [id number] [address] [place] [address] [place] Eosinophils (Bld) [#/Vol] 0.22 10*3/uL Normal <0.46 [facility] Comment on above: Order Comment: Speci men Type: BLOOD SPECIMEN Ordering Facility: [facility] Address: [address] [place] [address] Performed By: #### 5 7021-8, 88488-1 #### [facility] CLIA [id number] [address] [place] [address] [place] Eosinophils/100 WBC (Bld) 3.7 % Normal [facility] Comment on above: Order Comment: Speci men Type: BLOOD SPECIMEN Ordering Facility: [facility] Address: [address] [place] [address] Performed By: #### 5 7021-8, 13358-5 #### [facility] CLIA [id number] [address] [place] [address] [place] Erythrocyte distribution width (RBC) [Ratio] 13.1 % Normal 11.5-15.0 [facility] Comment on above: Order Comment: Speci men Type: BLOOD SPECIMEN Ordering Facility: [facility] Address: [address] [place] [address] Performed By: #### 5 7021-8, 86379-1 #### [facility] CLIA [id number] [address] [place] [address] [place] Hematocrit (Bld) [Volume fraction] 43.2 % Normal 39.0-51.0 [facility] Comment on above: Order Comment: Speci men Type: BLOOD SPECIMEN Ordering Facility: [facility] Address: [address] [place] [address] Performed By: #### 5 7021-8, 91680-5 #### [facility] CLIA [id number] [address] [place] [address] [place] Hemoglobin (Bld) [Mass/Vol] 14.3 g/dL Normal 13.0-17.0 [facility] Comment on above: Order Comment: Speci men Type: BLOOD SPECIMEN Ordering Facility: [facility] Address: [address] [place] [address] Performed By: #### 5 7021-8, 72177-5 #### [facility] CLIA [id number] [address] [place] [address] [place] Immature granulocytes (Bld) [#/Vol] 10*3/uL Normal <0.10 [facility] Comment on above: Order Comment: Speci men Type: BLOOD SPECIMEN Ordering Facility: [facility] Address: [address] [place] [address] Performed By: #### 5 7021-8, 04787-4 #### [facility] CLIA [id number] [address] [place] [address] [place] Immature granulocytes/100 WBC (Bld) 0.3 % Normal [facility] Comment on above: Order Comment: Speci men Type: BLOOD SPECIMEN Ordering Facility: [facility] Address: [address] [place] [address] Performed By: #### 5 7021-8, 81344-6 #### [facility] CLIA [id number] [address] [place] [address] [place] Lymphocytes (Bld) [#/Vol] 1.26 10*3/uL Normal 1.00-4.00 [facility] Comment on above: Order Comment: Speci men Type: BLOOD SPECIMEN Ordering Facility: [facility] Address: [address] [place] [address] Performed By: #### 5 7021-8, 13895-8 #### [facility] CLIA [id number] [address] [place] [address] [place] Lymphocytes/100 WBC (Bld) 21.0 % Normal [facility] Comment on above: Order Comment: Speci men Type: BLOOD SPECIMEN Ordering Facility: [facility] Address: [address] [place] [address] Performed By: #### 5 7021-8, 96024-6 #### [facility] CLIA [id number] [address] [place] [address] [place] MCH (RBC) [Entitic mass] 34.2 pg High 26.0-34.0 [facility] Comment on above: Order Comment: Speci men Type: BLOOD SPECIMEN Ordering Facility: [facility] Address: [address] [place] [address] Performed By: #### 5 7021-8, 69339-1 #### [facility] CLIA [id number] [address] [place] [address] [place] MCHC (RBC) [Mass/Vol] 33.1 g/dL Normal 30.5-36.0 [facility] Comment on above: Order Comment: Speci men Type: BLOOD SPECIMEN Ordering Facility: [facility] Address: [address] [place] [address] Performed By: #### 5 7021-8, 87631-6 #### [facility] CLIA [id number] [address] [place] [address] [place] MCV (RBC) [Entitic vol] 103.3 fL High 80.0-100.0 [facility] Comment on above: Order Comment: Speci men Type: BLOOD SPECIMEN Ordering Facility: [facility] Address: [address] [place] [address] Performed By: #### 5 7021-8, 43903-9 #### [facility] CLIA [id number] [address] [place] [address] [place] Monocytes (Bld) [#/Vol] 0.55 10*3/uL Normal <0.87 [facility] Comment on above: Order Comment: Speci men Type: BLOOD SPECIMEN Ordering Facility: [facility] Address: [address] [place] [address] Performed By: #### 5 7021-8, 56635-9 #### [facility] CLIA [id number] [address] [place] [address] [place] Monocytes/100 WBC (Bld) 9.2 % Normal [facility] Comment on above: Order Comment: Speci men Type: BLOOD SPECIMEN Ordering Facility: [facility] Address: [address] [place] [address] Performed By: #### 5 7021-8, 11281-4 #### [facility] CLIA [id number] [address] [place] [address] [place] Neutrophils (Bld) [#/Vol] 3.84 10*3/uL Normal 1.45-7.50 [facility] Comment on above: Order Comment: Speci men Type: BLOOD SPECIMEN Ordering Facility: [facility] Address: [address] [place] [address] Performed By: #### 5 7021-8, 82523-5 #### [facility] CLIA [id number] [address] [place] [address] [place] Neutrophils/100 WBC (Bld) 64.0 % Normal [facility] Comment on above: Order Comment: Speci men Type: BLOOD SPECIMEN Ordering Facility: [facility] Address: [address] [place] [address] Performed By: #### 5 7021-8, 25210-4 #### [facility] CLIA [id number] [address] [place] [address] [place] Nucleated RBC (Bld) [#/Vol] 10*3/uL Normal <0.01 [facility] Comment on above: Order Comment: Speci men Type: BLOOD SPECIMEN Ordering Facility: [facility] Address: [address] [place] [address] Performed By: #### 5 7021-8, 00970-9 #### [facility] CLIA [id number] [address] [place] [address] [place] Nucleated RBC/100 WBC (Bld) [Ratio] 0.0 /100 WBC Normal [facility] Comment on above: Order Comment: Speci men Type: BLOOD SPECIMEN Ordering Facility: [facility] Address: [address] [place] [address] Performed By: #### 5 7021-8, 96353-9 #### [facility] CLIA [id number] [address] [place] [address] [place] Platelet mean volume (Bld) [Entitic vol] 11.0 fL Normal 9.0-12.7 [facility] Comment on above: Order Comment: Speci men Type: BLOOD SPECIMEN Ordering Facility: [facility] Address: [address] [place] [address] Performed By: #### 5 7021-8, 18214-4 #### [facility] CLIA [id number] [address] [place] [address] [place] Platelets (Bld) [#/Vol] 237 10*3/uL Normal 150-400 [facility] Comment on above: Order Comment: Speci men Type: BLOOD SPECIMEN Ordering Facility: [facility] Address: [address] [place] [address] Performed By: #### 5 7021-8, 07928-4 #### [facility] CLIA [id number] [address] [place] [address] [place] RBC (Bld) [#/Vol] 4.18 10*6/uL Low 4.20-6.00 [facility] Comment on above: Order Comment: Speci men Type: BLOOD SPECIMEN Ordering Facility: [facility] Address: [address] [place] [address] Performed By: #### 5 7021-8, 23842-7 #### [facility] CLIA [id number] [address] [place] [address] [place] WBC (Bld) [#/Vol] 6.00 10*3/uL Normal 3.70-11.00 [facility] Comment on above: Order Comment: Speci men Type: BLOOD SPECIMEN Ordering Facility: [facility] Address: [address] [place] [address] Performed By: #### 5 7021-8, 09002-4 #### [facility] CLIA [id number] [address] [place] [address] [place] CNOVon 04-06-2024 [facility] NAVA HEALY ([id number]) 1945 M Date Time Provider Department 04/06/24 3:00 PM VIOLA PHELPS During your visit today, we recorded the following information about you: Pulse Respiration Blood pressure 82/minute 16/minute 130/88 Viola Phelps APRN.STONE DECORATOR 04/06/2024 8:22 PM Signed This is a [...] melatonin 1 mg chew Take by mouth. Idigwrq-Tridgtxolkoqm-Rglva ine (EXCEDRIN) 250-250-65 mg per tablet Take [...] Will get echo. Patient with check with [employer] customer service and let us know if [...] PM Addendum Get labwork. Check with the [employer] customer service re: coverage for the heart monitor. Schedule echocardiogram. Schedule aorta ultrasound. Allergies As of Date: 04/06/2024 Noted Allergy Reaction BANANA 10/13/2018 8 - GI Upset Comments: bloating Date Reviewed: 04/06/2024 Reviewed by: Pradeep Angel LPN - Fully Assessed Reason for Visit: Recheck [92] Cmt: Follow up- medication refills Primary Visit Diagnosis:Parkinson's disease with dyski (more content not included)... Normal [facility] Comprehensive metabolic 2000 panelon 04-06-2024 Albumin [Mass/Vol] 4.1 g/dL Normal 3.9-4.9 [facility] Comment on above: Order Comment: Speci men Type: BLOOD SPECIMEN Ordering Facility: [facility] Address: [address] [place] [address] Performed By: #### 5 7021-8, 90381-2 #### [facility] CLIA [id number] [address] [place] [address] [place] ALP [Catalytic activity/Vol] 62 U/L Normal 38-113 [facility] Comment on above: Order Comment: Speci men Type: BLOOD SPECIMEN Ordering Facility: [facility] Address: [address] [place] [address] Performed By: #### 5 7021-8, 66289-7 #### [facility] CLIA [id number] [address] [place] [address] [place] ALT [Catalytic activity/Vol] 15 U/L Normal 10-54 [facility] Comment on above: Order Comment: Speci men Type: BLOOD SPECIMEN Ordering Facility: [facility] Address: [address] [place] [address] Performed By: #### 5 7021-8, 82756-0 #### [facility] CLIA [id number] [address] [place] [address] [place] Anion gap [Moles/Vol] 14 mmol/L Normal 8-15 [facility] Comment on above: Order Comment: Speci men Type: BLOOD SPECIMEN Ordering Facility: [facility] Address: [address] [place] [address] Performed By: #### 5 7021-8, 82448-3 #### [facility] CLIA [id number] [address] [place] [address] [place] AST [Catalytic activity/Vol] 22 U/L Normal 14-40 [facility] Comment on above: Order Comment: Speci men Type: BLOOD SPECIMEN Ordering Facility: [facility] Address: [address] [place] [address] Performed By: #### 5 7021-8, 29858-2 #### [facility] CLIA [id number] [address] [place] [address] [place] Bilirubin [Mass/Vol] 0.4 mg/dL Normal 0.2-1.3 [facility] Comment on above: Order Comment: Speci men Type: BLOOD SPECIMEN Ordering Facility: [facility] Address: [address] [place] [address] Performed By: #### 5 7021-8, 16317-1 #### [facility] CLIA [id number] [address] [place] [address] [place] Calcium [Mass/Vol] 9.6 mg/dL Normal 8.5-10.2 [facility] Comment on above: Order Comment: Speci men Type: BLOOD SPECIMEN Ordering Facility: [facility] Address: [address] [place] [address] Performed By: #### 5 7021-8, 73785-3 #### [facility] CLIA [id number] [address] [place] [address] [place] Chloride [Moles/Vol] 106 mmol/L Normal 98-107 [facility] Comment on above: Order Comment: Speci men Type: BLOOD SPECIMEN Ordering Facility: [facility] Address: [address] [place] [address] Performed By: #### 5 7021-8, 87909-6 #### [facility] CLIA [id number] [address] [place] [address] [place] CO2 [Moles/Vol] 21 mmol/L Low 22-30 [facility] Comment on above: Order Comment: Speci men Type: BLOOD SPECIMEN Ordering Facility: [facility] Address: [address] [place] [address] Performed By: #### 5 7021-8, 70510-4 #### [facility] CLIA [id number] [address] [place] [address] [place] Creatinine [Mass/Vol] 0.95 mg/dL Normal 0.73-1.22 [facility] Comment on above: Order Comment: Speci men Type: BLOOD SPECIMEN Ordering Facility: [facility] Address: [address] [place] [address] Performed By: #### 5 7021-8, 75321-1 #### [facility] CLIA [id number] [address] [place] [address] [place] Creatinine and Glomerular filtration rate.predicted panel (S/P/Bld) 81 mL/min/1.73m??? Normal >=60 [facility] Comment on above: Order Comment: Speci men Type: BLOOD SPECIMEN Ordering Facility: [facility] Address: [address] [place] [address] Result Comment: Cecy mated Glomerular Filtration Rate [...] actual GFR. Performed By: #### 5 7021-8, 58090-6 #### [facility] CLIA [id number] [address] [place] [address] [place] Glucose [Mass/Vol] 98 mg/dL Normal 74-99 [facility] Comment on above: Order Comment: Evelyn polo Type: BLOOD SPECIMEN Ordering Facility: [facility] Address: [address] [place] [address] Result Comment: The [place] Diabetes Association (ADA) provides guidance for cutoff [...] Standards of Medical Care in Diabetes 2016, [place] [employer] Association. Diabetes Care. 2016.39(Suppl 1). Performed By: #### 5 7021-8, 76990-8 #### [facility] CLIA [id number] [address] [place] [address] [place] Potassium [Moles/Vol] 4.3 mmol/L Normal 3.7-5.1 [facility] Comment on above: Order Comment: Evelyn polo Type: BLOOD SPECIMEN Ordering Facility: [facility] Address: [address] [place] [address] Performed By: #### 5 7021-8, 63789-5 #### [facility] CLIA [id number] [address] [place] [address] [place] Protein [Mass/Vol] 7.2 g/dL Normal 6.3-8.0 [facility] Comment on above: Order Comment: Speci men Type: BLOOD SPECIMEN Ordering Facility: [facility] Address: [address] [place] [address] Performed By: #### 5 7021-8, 79336-6 #### [facility] CLIA [id number] [address] [place] [address] [place] Sodium [Moles/Vol] 141 mmol/L Normal 136-144 [facility] Comment on above: Order Comment: Speci men Type: BLOOD SPECIMEN Ordering Facility: [facility] Address: [address] [place] [address] Performed By: #### 5 7021-8, 90723-1 #### [facility] CLIA [id number] [address] [place] [address] [place] Urea nitrogen [Mass/Vol] 12 mg/dL Normal 9-24 [facility] Comment on above: Order Comment: Speci men Type: BLOOD SPECIMEN Ordering Facility: [facility] Address: [address] [place] [address] Performed By: #### 5 7021-8, 21465-1 #### [facility] CLIA [id number] [address] [place] [address] [place] ECG COMPLETEon 04-06-2024 ECG COMPLETE Ventricular Rate : 6 4 BPM Atrial Rate : 64 BPM P-R Interval : 160 ms QRS Duration : 114 ms Q-T Interval : 416 ms QTC Calculation(Bazett) : 429 ms Calculated P [place] : 9 degrees Calculated R [place] : 59 degrees Calculated T [place] : 9 degrees NORMAL SINUS RHYTHM WITH SINUS ARRHYTHMIA COMPLETE RIGHT BUNDLE BRANCH BLOCK ABNORMAL ECG Confirmed by MD JOSHUA GREGORY () on 04/07/2024 9:53:32 AM NAME : NAVA HEALY PID : [id number] : 1945 Gender : Male Race : ORD : [id number] Procedure Date : Apr 06 2024 16:33:04 Edit Date : Apr 07 2024 09:53:33 Diagnosis: NORMAL SINUS RHYTHM WITH SINUS ARRHYTHMIA COMPLETE RIGHT BUNDLE BRANCH BLOCK ABNORMAL ECG Confirmed by MD JOSHUA GREGORY () on 04/07/2024 9:53:32 AM Test Reason : R00.2 Palpitations Location : 185 : [facility] Overread By : MD OJSHUA GREGORY Edited By : MD JOSHUA GREGORY Referred By : VIOLA PHELPS Acquired by : Linsey ANGEL Normal [facility] Ferritin SerPl-mCncon 2023 Ferritin [Mass/Vol] 49.7 ng/mL Normal 30.3-565.7 [facility] Comment on above: Order Comment: Evelyn polo Type: BLOOD SPECIMEN Ordering Facility: [facility] Address: [address] [place] [address] Performed By: #### 2 4323-8, 3024-7, 3016-3 #### [facility] CLIA [id number] [address] [place] [address] [place] HbA1c (Bld)on 04-06-2024 Average glucose Estimated from glycated hemoglobin (Bld) [Mass/Vol] 114 mg/dL Normal [facility] Comment on above: Order Comment: Evelyn polo Type: BLOOD SPECIMEN Ordering Facility: [facility] Address: [address] [place] [address] Result Comment: eAG: (Estimated average glucose) is a calculated value from HgbA1c and is [employer] sales representative of the average blood glucose level in the last 2-3 month period. Performed By: #### 5 7021-8, 43992-3 #### [facility] CLIA [id number] [address] [place] [address] [place] HbA1c (Bld) [Mass fraction] 5.6 % Normal 4.3-5.6 [facility] Comment on above: Order Comment: Evelyn polo Type: BLOOD SPECIMEN Ordering Facility: [facility] Address: [address] [place] [address] Result Comment: [place] Diabetes Association guidelines indicate that patients with HgbA1c in the range 5.7-6.4% are at increased risk for development of diabetes, and intervention by lifestyle modification may be beneficial. HgbA1c greater or equal to 6.5% is considered diagnostic of diabetes. Performed By: #### 5 7021-8, 14548-9 #### [facility] CLIA [id number] [address] [place] [address] [place] Iron and Iron binding capaci ty panelon 04-06-2024 Iron [Mass/Vol] 70 ug/dL Normal 41-186 [facility] Comment on above: Order Comment: Speci men Type: BLOOD SPECIMEN Ordering Facility: [facility] Address: [address] [place] [address] Performed By: #### 2 4323-8, 3024-7, 3016-3 #### [facility] CLIA [id number] [address] [place] [address] [place] Iron binding capacity [Mass/Vol] 302 ug/dL Normal 232-386 [facility] Comment on above: Order Comment: Speci men Type: BLOOD SPECIMEN Ordering Facility: [facility] Address: [address] [place] [address] Performed By: #### 2 4323-8, 3024-7, 3016-3 #### [facility] CLIA [id number] [address] [place] [address] [place] Iron/TIBC [Molar ratio] 23.2 % Normal 15.0-57.0 [facility] Comment on above: Order Comment: Speci men Type: BLOOD SPECIMEN Ordering Facility: [facility] Address: [address] [place] [address] Performed By: #### 2 4323-8, 3024-7, 3016-3 #### [facility] CLIA [id number] [address] [place] [address] [place] Magnesium SerPl-mCncon 04-06 Magnesium [Mass/Vol] 2.3 mg/dL Normal 1.7-2.3 [facility] Comment on above: Order Comment: Speci men Type: BLOOD SPECIMEN Ordering Facility: [facility] Address: [address] [place] [address] Performed By: #### 2 4323-8, 3024-7, 3016-3 #### [facility] CLIA [id number] [address] [place], [place] [address] [place] [address] [place] PSA/PROSTATE SPECIFIC ANTIGE N SCREENINGon 04-06-2024 Prostate specific Ag [Mass/Vol] 3.34 ng/mL High <2.60 [facility] Comment on above: Order Comment: Speci men Type: BLOOD SPECIMEN Ordering Facility: [facility] Address: [address] [place] [address] Result Comment: Tota l PSA test methodology used is the Electrochemiluminescence Immunoassay by [employer]. Total PSA values by differing methodologies cannot [...] By: #### 2 4323-8, 3024-7, 3016-3 #### [facility] CLIA [id number] [address] [place], [place] [address] [place] [address] [place] Prealb SerPl-mCncon 04-06-20 24 Prealbumin [Mass/Vol] 22 mg/dL Normal 17-36 [facility] Comment on above: Order Comment: Speci men Type: BLOOD SPECIMEN Ordering Facility: [facility] Address: [address] [place] [address] Performed By: #### 5 7021-8, 69518-2 #### [facility] CLIA [id number] [address] [place] [address] [place] TSH SerPl-aCncon 04-06-2024 TSH Qn 2.760 m[IU]/L Normal 0.270-4.200 [facility] Comment on above: Order Comment: Speci men Type: BLOOD SPECIMEN Ordering Facility: [facility] Address: [address] [place] [address] Performed By: #### 2 4323-8, 3024-7, 3016-3 #### [facility] CLIA [id number] [address] [place] [address] OF [facility] Trisha 03-12-2024 CNPN Telephone (NREUS2) NAVA HEALY ([id number]) 1945 M Date Time Provider Department 03/12/24 [...] 1 mg chew Take by mouth. - Ubimtpj-Ykhxhsvtxvshi-Dmmtj ine (EXCEDRIN) 250-250-65 mg per tablet Take 1 tablet by mouth every 6 hours as needed. - vitamin B complex (B COMPLEX ORAL) Take by mouth. Problem List As Of Date 03/12/2024 Noted Resolved Acquired hypothyroidism [E03.9] 05/06/2016 DDD (degenerative disc disease), lumbar [M51.36]10/13/2018 Lumbar foraminal stenosis [M48.061] 05/11/2021 Parkinson's syndrome (HCC) [G20.A1] 10/30/2022 Encounter Status:Closed by RACHEL ORTEGA on 03/12/24 Normal [facility] Spine Lumbar (Routine)on Spine Lumbar (Routine) [facility] Services [address] [place] [address] Spine Lumbar (Routine) MR#: [id number] Acct: [id number] Name: NAVA HEALY Hina Rep #: [id number] : 1945 M 78 From: Sushant villa DO PCP: HARI Nunez Status: REG CLI Study: Spine Lumbar (Routine) Date of Exam: 11/18/23 Exam# [id number] Ordering Dr: Eddi Larson DO [id number] EXAM: MR LUMBAR SPINE WITHOUT INTRAVENOUS CONTRAST [...] CC: Dr. Eddi Larson DO; HARI Nunez Jury Consultant: Signed Normal [facility] Lumbar Spine 2 or 3 Viewson 11-07-2023 Lumbar Spine 2 or 3 Views [facility] [address] [place] [address] Lumbar Spine 2 or 3 Views MR#: [id number] Acct: [id number] Name: MONETNAVA Hina Rep #: [id number] : 1945 M 78 From: Quirino Titus MD PCP: HARI Nunez Status: DEP AMB Study: Lumbar Spine 2 or 3 Views Date of Exam: Exam# [id number] Ordering Dr: Eddi Larson DO [id number] STUDY: X-RAY - LUMBAR SPINE REASON FOR [...] 14:49 EST Reading Location ID and State: [address] [place] [address] , Service support , CC: Dr. Eddi Larson DO; HARI Nunez Jury Consultant: Signed Normal [facility] Orthopedic Visit Reporton Orthopedic Visit Report [facility] [address] [place] [address] [address] [place] [address] OFFICE VISIT Date of Service: 11/07/23 MR#: [id number] Acct: [id number] Name: NAVA HEALY Rep #: [id number] : 1945 Provider: Dr. Eddi godoy DO Age/Sex: 78/M [place] [facility] Status: Signed Intake Vital Signs 08/02/22 14:41 11/07/23 14:17 Height 6 ft 5 ft 11 in Weight: 125 lb BMI 17.4 Intake Visit Reasons: LUMBAR SPINE Is patient in pain?: Yes Allergies No Known Allergies Allergy (Unverified 11/07/23 14:18) Medications levothyroxine 13 mcg capsule 13 mcg PO DAILY 08/02/22 [History Confirmed 11/07/23] gahmzkf-vbwjfctlxutdb-ybtmk ine 250 mg-250 mg-65 mg tablet (Excedrin Extra Strength) 1 tab PO ONCE 09/06/22 [History Confirmed 11/07/23] [facility] Medical History (Updated 11/07/23 @ 14:56 [...] by me, Dr. Eddi Larson DO 11/07/23 6177. Part of today???s visit was documented by [...] with all activities. He has a cat prison which increases his pain preparing the food [...] site unspecified, (more content not included)... Normal [facility] MRI BRAIN IVCONon 023 [facility] CNOVon 05-03-2022 CNOV Office Visit (SPAGWO ) NAVA HEALY ([id number]) 1945 M Date Time Provider Department 05/03/22 10:00 AM SHELL LEWIS During your visit today, we recorded the following information about you: Pulse Respiration Normal [facility] Trisha 05-03-2022 CNPN Telephone (SPAGWO) NAVA HEALY ([id number]) 1945 M Date Time Provider Department 05/03/22 [...] 1 mg chew Take by mouth. - Qjgxxhe-Udtjeguyqbwwe-Ridwo ine (EXCEDRIN) 250-250-65 mg per tablet Take [...] Status:Closed by SERENA MORENO on 05/03/22 Normal [facility] XR Pelvis and Hip - right AP and Lateral frogon 12-13-2021 IMPRESSION: 1. Mild degenerative changes in the hips. 2. Atherosclerotic disease. Jury Consultant: PSCB Transcribe Date/Time: Dec 13 2021 3:33P Dictated by : ALECIA CLARK MD This examination was interpreted and the report reviewed and electronically signed by: ALECIA CLARK MD on Dec 13 2021 3:34PM [facility] DIVISION OF RADIOLOGY * * *Final Report* [...] of the vasculature. DIVISION OF RADIOLOGY Provider, [facility] - 12/13/2021 * * *Final Report* [...] changes in the hips. 2. Atherosclerotic disease. Jury Consultant: PSCB Transcribe Date/Time: Dec 13 2021 3:33P Dictated by : ALECIA CLARK MD This examination was interpreted and the report reviewed and electronically signed by: ALECIA CLARK MD on Dec 13 2021 3:34PM EST [facility] Radiology Study observation (narrative) [facility] XR Pelvis and Hip - right AP and Lateral frogOrdered By: Ccf Provider on 12-13-2021 [facility] CNCOon 03-29-2021 CNCO Letter Text Normal [facility] XR Lumbar spine 3 Viewson IMPRESSION: Degenera tive scoliosis. Jury Consultant: PSCB Transcribe Date/Time: Mar 20 2021 9:34P [...] DIVISION OF RADIOLOGY Provider, [facility] - 03/20/2021 * * *Final Report* [...] joints are unremarkable. IMPRESSION IMPRESSION: Degenerative scoliosis. Jury Consultant: PSCB Transcribe Date/Time: Mar 20 2021 9:34P Dictated by : RICHY AKINS MD This examination was interpreted and the report reviewed and electronically signed by: RICHY AKINS MD on Mar 20 2021 9:35PM EST [facility] Radiology Study observation (narrative) [facility] XR Lumbar spine 3 ViewsOrder ed By: Ccf Provider on 03-20-2021 [facility] Vital Signs Date Time Vital Sign Value Performing Clinician Facility 02-19-2025 14:17-0400 Body mass index (BMI) [Ratio] 16.27 kg/m2 Viola Phelps APRN.STONE DECORATOR Work Phone: [facility] 02-19-2025 14:17-0400 Body weight 54.43 kg Viola Phelps APRN.STONE DECORATOR Work Phone: [facility] 02-19-2025 14:17-0400 Diastolic blood pressure 70 mm[Hg] Viola Phelps APRN.STONE DECORATOR Work Phone: [facility] 02-19-2025 14:17-0400 Heart rate 80 /min Viola Phelps APRN.STONE DECORATOR Work Phone: [facility] 02-19-2025 14:17-0400 Respiratory rate 16 /min Viola Phelps APRN.STONE DECORATOR Work Phone: [facility] 02-19-2025 14:17-0400 SaO2% (BldA) [Mass fraction] 98 % Viola Phelps APRN.STONE DECORATOR Work Phone: [facility] 02-19-2025 14:17-0400 Systolic blood pressure 107 mm[Hg] Viola Phelps APRN.STONE DECORATOR Work Phone: [facility] 01-20-2025 14:56-0400 Body mass index (BMI) [Ratio] 16.27 kg/m2 Viola Haagen DRILLER'S ASSISTANT.STONE DECORATOR Work Phone: [facility] 01-20-2025 14:56-0400 Body weight 54.43 kg Viola Haagen DRILLER'S ASSISTANT.STONE DECORATOR Work Phone: [facility] 01-20-2025 14:56-0400 Diastolic blood pressure 78 mm[Hg] Viola Haagen DRILLER'S ASSISTANT.STONE DECORATOR Work Phone: [facility] 01-20-2025 14:56-0400 Heart rate 74 /min Vioal Haagen DRILLER'S ASSISTANT.STONE DECORATOR Work Phone: [facility] 01-20-2025 14:56-0400 Respiratory rate 16 /min Viola Haagen DRILLER'S ASSISTANT.STONE DECORATOR Work Phone: [facility] 01-20-2025 14:56-0400 SaO2% (BldA) [Mass fraction] 96 % Viola Haagen DRILLER'S ASSISTANT.STONE DECORATOR Work Phone: [facility] 01-20-2025 14:56-0400 Systolic blood pressure 128 mm[Hg] Viola Haagen DRILLER'S ASSISTANT.STONE DECORATOR Work Phone: [facility] 12-02-2024 13:46-0400 Body mass index (BMI) [Ratio] 16.41 kg/m2 Viola Haagen DRILLER'S ASSISTANT.STONE DECORATOR Work Phone: [facility] 12-02-2024 13:46-0400 Body weight 54.88 kg Viola Haagen DRILLER'S ASSISTANT.STONE DECORATOR Work Phone: [facility] 12-02-2024 13:46-0400 Diastolic blood pressure 76 mm[Hg] Viola Haagen DRILLER'S ASSISTANT.STONE DECORATOR Work Phone: [facility] 12-02-2024 13:46-0400 Heart rate 67 /min Viola Haagen DRILLER'S ASSISTANT.STONE DECORATOR Work Phone: [facility] 12-02-2024 13:46-0400 Respiratory rate 16 /min Viola Haagen DRILLER'S ASSISTANT.STONE DECORATOR Work Phone: [facility] 12-02-2024 13:46-0400 SaO2% (BldA) [Mass fraction] 98 % Viola Haagen DRILLER'S ASSISTANT.STONE DECORATOR Work Phone: [facility] 12-02-2024 13:46-0400 Systolic blood pressure 145 mm[Hg] Viola Haagen DRILLER'S ASSISTANT.STONE DECORATOR Work Phone: [facility] 10-28-2024 14:53-0500 Heart rate 76 /min Viola Haagen DRILLER'S ASSISTANT.STONE DECORATOR Work Phone: [facility] 10-28-2024 14:09-0500 Diastolic blood pressure 72 mm[Hg] Viola Haagen DRILLER'S ASSISTANT.STONE DECORATOR Work Phone: [facility] 10-28-2024 14:09-0500 Respiratory rate 16 /min Viola Haagen DRILLER'S ASSISTANT.STONE DECORATOR Work Phone: [facility] 10-28-2024 14:09-0500 SaO2% (BldA) [Mass fraction] 97 % Viola Haagen DRILLER'S ASSISTANT.STONE DECORATOR Work Phone: [facility] 10-28-2024 14:09-0500 Systolic blood pressure 118 mm[Hg] Viola Haagen DRILLER'S ASSISTANT.STONE DECORATOR Work Phone: [facility] 10-27-2024 16:03-0500 Body mass index (BMI) [Ratio] 16.6 kg/m2 Kirstin Vailer PA-C Work Phone: [facility] 10-27-2024 16:03-0500 Body weight 55.52 kg Kirstin Vailer PA-C Work Phone: [facility] 10-27-2024 16:03-0500 Diastolic blood pressure 91 mm[Hg] Kirstin Vailer PA-C Work Phone: [facility] 10-27-2024 16:03-0500 Heart rate 74 /min Kirstin Vailer PA-C Work Phone: [facility] 10-27-2024 16:03-0500 SaO2% (BldA) [Mass fraction] 98 % Kirstin Vailer PA-C Work Phone: [facility] 10-27-2024 16:03-0500 Systolic blood pressure 134 mm[Hg] Kirstin Aldridge PA-C Work Phone: [facility] 07-28-2024 13:04-0500 Diastolic blood pressure 76 mm[Hg] Viola Haagen DRILLER'S ASSISTANT.STONE DECORATOR Work Phone: [facility] 07-28-2024 13:04-0500 Heart rate 84 /min Viola Haagen DRILLER'S ASSISTANT.STONE DECORATOR Work Phone: [facility] 07-28-2024 13:04-0500 Respiratory rate 16 /min Viola Haagen DRILLER'S ASSISTANT.STONE DECORATOR Work Phone: [facility] 07-28-2024 13:04-0500 SaO2% (BldA) [Mass fraction] 97 % Viola Haagen DRILLER'S ASSISTANT.STONE DECORATOR Work Phone: [facility] 07-28-2024 13:04-0500 Systolic blood pressure 128 mm[Hg] Viola Haagen DRILLER'S ASSISTANT.STONE DECORATOR Work Phone: [facility] 04-06-2024 15:10-0400 Diastolic blood pressure 88 mm[Hg] Viola Haagen DRILLER'S ASSISTANT.STONE DECORATOR Work Phone: [facility] 04-06-2024 15:10-0400 Heart rate 82 /min Viola Haagen DRILLER'S ASSISTANT.STONE DECORATOR Work Phone: [facility] 04-06-2024 15:10-0400 Respiratory rate 16 /min Viola Haagen DRILLER'S ASSISTANT.STONE DECORATOR Work Phone: [facility] 04-06-2024 15:10-0400 SaO2% (BldA) [Mass fraction] 99 % Viola Haagen DRILLER'S ASSISTANT.STONE DECORATOR Work Phone: [facility] 04-06-2024 15:10-0400 Systolic blood pressure 130 mm[Hg] Viola Haagen DRILLER'S ASSISTANT.STONE DECORATOR Work Phone: [facility] 12-30-2023 15:24-0400 Body weight 58.97 kg CAYLA Abraham PA-C Work Phone: [facility] 12-30-2023 15:24-0400 Diastolic blood pressure 90 mm[Hg] NA Abraham PA-C Work Phone: [facility] 12-30-2023 15:24-0400 Heart rate 56 /min NA Abraham PA-C Work Phone: [facility] 12-30-2023 15:24-0400 Respiratory rate 16 /min NA Abraham PA-C Work Phone: [facility] 12-30-2023 15:24-0400 SaO2% (BldA) [Mass fraction] 96 % NA Abraham PA-C Work Phone: [facility] 12-30-2023 15:24-0400 Systolic blood pressure 138 mm[Hg] NA Abraham PA-C Work Phone: [facility] 12-02-2023 14:49-0400 Body weight 59.42 kg NA Abraham PA-C Work Phone: [facility] 12-02-2023 14:49-0400 Diastolic blood pressure 80 mm[Hg] NA Abraham PA-C Work Phone: [facility] 12-02-2023 14:49-0400 Heart rate 60 /min NA Abraham PA-C Work Phone: [facility] 12-02-2023 14:49-0400 Respiratory rate 16 /min NA Abraham PA-C Work Phone: [facility] 12-02-2023 14:49-0400 Systolic blood pressure 132 mm[Hg] NA Abraham PA-C Work Phone: [facility] 11-07-2023 14:17-0500 Body height 180.34 cm PA NA Abraham PA Work Phone: [facility] 11-07-2023 14:17-0500 Body mass index (BMI) [Ratio] 17.4 kg/m2 PA NA Abraham PA Work Phone: [facility] 11-07-2023 14:17-0500 Body weight 56.69 kg PA NA Abraham PA Work Phone: [facility] 07-29-2023 16:52-0500 Body weight 57.88 kg Salvador Vargas Jr., MD Work Phone: [facility] 07-29-2023 16:52-0500 Diastolic blood pressure 95 mm[Hg] Salvador Vargas Jr., MD Work Phone: [facility] 07-29-2023 16:52-0500 Heart rate 86 /min Salvador Vargas Jr., MD Work Phone: [facility] 07-29-2023 16:52-0500 Respiratory rate 18 /min Salvador Vargas Jr., MD Work Phone: [facility] 07-29-2023 16:52-0500 SaO2% (BldA) [Mass fraction] 98 % Salvador Vargas Jr., MD Work Phone: [facility] 07-29-2023 16:52-0500 Systolic blood pressure 138 mm[Hg] Salvador Vargas Jr., MD Work Phone: [facility] 05-21-2023 14:51-0400 Body weight 56.97 kg NA Abraham PA-C Work Phone: [facility] 05-21-2023 14:51-0400 Diastolic blood pressure 82 mm[Hg] NA Abraham PA-C Work Phone: [facility] 05-21-2023 14:51-0400 Heart rate 82 /min NA Abraham PA-C Work Phone: [facility] 05-21-2023 14:51-0400 Respiratory rate 16 /min NA Abraham PA-C Work Phone: [facility] 05-21-2023 14:51-0400 SaO2% (BldA) [Mass fraction] 100 % NA Abraham PA-C Work Phone: [facility] 05-21-2023 14:51-0400 Systolic blood pressure 138 mm[Hg] NA Abraham PA-C Work Phone: [facility] 02-21-2023 13:37-0400 Body temperature 97.59 [degF] Patsy Dahlhausen DRILLER'S ASSISTANT.STONE DECORATOR Work Phone: [facility] 02-21-2023 13:37-0400 Body weight 57.52 kg Patsy Dahlhausen DRILLER'S ASSISTANT.STONE DECORATOR Work Phone: [facility] 02-21-2023 13:37-0400 Diastolic blood pressure 85 mm[Hg] Patsy Dahlhausen DRILLER'S ASSISTANT.STONE DECORATOR Work Phone: [facility] 02-21-2023 13:37-0400 Heart rate 81 /min Patsy Dahlhausen DRILLER'S ASSISTANT.STONE DECORATOR Work Phone: [facility] 02-21-2023 13:37-0400 Respiratory rate 18 /min Patsy Dahlhausen DRILLER'S ASSISTANT.STONE DECORATOR Work Phone: [facility] 02-21-2023 13:37-0400 SaO2% (BldA) [Mass fraction] 97 % Patsy Dahlhausen DRILLER'S ASSISTANT.STONE DECORATOR Work Phone: [facility] 02-21-2023 13:37-0400 Systolic blood pressure 122 mm[Hg] Patsy Dahlhausen DRILLER'S ASSISTANT.STONE DECORATOR Work Phone: [facility] 12-27-2022 13:37-0400 Body temperature 98.1 [degF] Patsy Dahlhausen DRILLER'S ASSISTANT.STONE DECORATOR Work Phone: [facility] 12-27-2022 13:37-0400 Body weight 58.97 kg Patsy Dahlhausen DRILLER'S ASSISTANT.STONE DECORATOR Work Phone: [facility] 12-27-2022 13:37-0400 Diastolic blood pressure 91 mm[Hg] Patsy Dahlhausen DRILLER'S ASSISTANT.STONE DECORATOR Work Phone: [facility] 12-27-2022 13:37-0400 Heart rate 58 /min Patsy Dahlhausen DRILLER'S ASSISTANT.STONE DECORATOR Work Phone: [facility] 12-27-2022 13:37-0400 Respiratory rate 18 /min Patsy Brianhausen DRILLER'S ASSISTANT.STONE DECORATOR Work Phone: [facility] 12-27-2022 13:37-0400 SaO2% (BldA) [Mass fraction] 99 % Patsy Brianhausen DRILLER'S ASSISTANT.STONE DECORATOR Work Phone: [facility] 12-27-2022 13:37-0400 Systolic blood pressure 151 mm[Hg] Patsy Daindrahausen DRILLER'S ASSISTANT.STONE DECORATOR Work Phone: [facility] 10-30-2022 15:45-0500 Body weight 60.78 kg NA Abraham PA-C Work Phone: [facility] 10-30-2022 15:45-0500 Diastolic blood pressure 80 mm[Hg] NA Abraham PA-C Work Phone: [facility] 10-30-2022 15:45-0500 Heart rate 59 /min NA Abraham PA-C Work Phone: [facility] 10-30-2022 15:45-0500 SaO2% (BldA) [Mass fraction] 99 % NA Abraham PA-C Work Phone: [facility] 10-30-2022 15:45-0500 Systolic blood pressure 128 mm[Hg] NA Abraham PA-C Work Phone: [facility] 08-02-2022 14:41-0500 Body height 182.88 cm PA NA Abraham PA Work Phone: [facility] Work Phone: 08-02-2022 14:41-0500 Body mass index (BMI) [Ratio] 18.3 kg/m2 PA NA Abraham PA Work Phone: [facility] Work Phone: 08-02-2022 14:41-0500 Body weight 61.23 kg PA NA Abraham PA Work Phone: [facility] Work Phone: 07-05-2022 15:42-0400 Heart rate 62 /min Shell Lewis MD Work Phone: [facility] 07-05-2022 15:42-0400 Respiratory rate 16 /min Shell Lewis MD Work Phone: [facility] 07-05-2022 15:42-0400 SaO2% (BldA) [Mass fraction] 99 % Shell Lewis MD Work Phone: [facility] 06-14-2022 13:23-0400 Body weight 59.88 kg NA Abraham PA-C Work Phone: [facility] 06-14-2022 13:23-0400 Diastolic blood pressure 64 mm[Hg] NA Abraham PA-C Work Phone: [facility] 06-14-2022 13:23-0400 Heart rate 67 /min NA Abraham PA-C Work Phone: [facility] 06-14-2022 13:23-0400 Respiratory rate 14 /min NA Abraham PA-C Work Phone: [facility] 06-14-2022 13:23-0400 SaO2% (BldA) [Mass fraction] 99 % NA Abraham PA-C Work Phone: [facility] 06-14-2022 13:23-0400 Systolic blood pressure 110 mm[Hg] NA Abraham PA-C Work Phone: [facility] 05-03-2022 10:11-0400 Heart rate 67 /min Shell Lewis MD Work Phone: [facility] 05-03-2022 10:11-0400 Respiratory rate 16 /min Shell Lewis MD Work Phone: [facility] 05-03-2022 10:11-0400 SaO2% (BldA) [Mass fraction] 99 % Shell Lewis MD Work Phone: [facility] 03-08-2022 16:16-0400 Body weight 58.51 kg NA Abraham PA-C Work Phone: [facility] 03-08-2022 16:16-0400 Diastolic blood pressure 74 mm[Hg] NA Abraham PA-C Work Phone: [facility] 03-08-2022 16:16-0400 Heart rate 66 /min NA Abraham PA-C Work Phone: [facility] 03-08-2022 16:16-0400 Respiratory rate 16 /min NA Abraham PA-C Work Phone: [facility] 03-08-2022 16:16-0400 SaO2% (BldA) [Mass fraction] 99 % NA Abraham PA-C Work Phone: [facility] 03-08-2022 16:16-0400 Systolic blood pressure 120 mm[Hg] NA Abraham PA-C Work Phone: [facility] 02-05-2022 15:24-0400 Body weight 58.51 kg NA Abraham PA-C Work Phone: [facility] 02-05-2022 15:24-0400 Diastolic blood pressure 76 mm[Hg] NA Abraham PA-C Work Phone: [facility] 02-05-2022 15:24-0400 Heart rate 78 /min NA Abraham PA-C Work Phone: [facility] 02-05-2022 15:24-0400 Respiratory rate 16 /min NA Abraham PA-C Work Phone: [facility] 02-05-2022 15:24-0400 SaO2% (BldA) [Mass fraction] 98 % NA Abraham PA-C Work Phone: [facility] 02-05-2022 15:24-0400 Systolic blood pressure 120 mm[Hg] NA Abraham PA-C Work Phone: [facility] Encounters Encounter Date Encounter Type Care Provider Facility Start: 02-19-2025 End: 02-19-2025 Office outpatient visit 25 minutes Viola Phelps APRN.CNP Work Phone: [facility] [place] Comment on above: Parkinsonian feature s (Primary Dx); Chronic pain syndrome; Lumbar foraminal stenosis; Weight loss Start: 02-19-2025 End: 02-19-2025 [facility] Facility:[facility] Start: 01-22-2025 End: 01-25-2025 Telephone encounter Cale Mix MSW Navigation Start: 01-20-2025 End: 01-20-2025 Office outpatient visit 25 minutes Viola Phelps APRN.STONE DECORATOR Work Phone: [facility] Comment on above: Chronic pain syndrom e (Primary Dx); Weight loss; Lumbar foraminal stenosis Start: 01-20-2025 End: 01-20-2025 [facility] Facility:[facility] Start: 12-07-2024 End: 02-06-2025 Follow-up encounter Viola Phelps APRN.STONE DECORATOR Work Phone: [facility] Start: 12-05-2024 End: 02-04-2025 Follow-up encounter Viola Phelps APRN.STONE DECORATOR Work Phone: [facility] [place] Start: 12-02-2024 End: 12-02-2024 Telephone encounter Cale Mix MSW Navigation Start: 12-02-2024 End: 12-02-2024 Office outpatient visit 25 minutes Viola Phelps APRN.STONE DECORATOR Work Phone: [facility] [place] Comment on above: Weight loss (Primary Dx); Other chronic pain; Drooling Start: 12-02-2024 End: 12-02-2024 [facility] Facility:[facility] Start: 11-30-2024 End: 12-02-2024 Telephone encounter Viola Phelps APRN.STONE DECORATOR Work Phone: [facility] [place] Comment on above: Patient Question Start: 10-29-2024 End: 11-06-2024 Telephone encounter Cale Mix MSW Navigation Start: 10-28-2024 End: 10-28-2024 [facility] Facility:[facility] Start: 10-28-2024 End: 10-28-2024 [facility] Start: 10-28-2024 End: 10-28-2024 Office outpatient visit 25 minutes Viola Phelps APRN.STONE DECORATOR Work Phone: [facility] [place] Comment on above: Acquired hypothyroid ism (Primary Dx); Vitamin D deficiency; Generalized weakness; Other chronic pain; Parkinson's disease with dyskinesia and fluctuating manifestations (HCC); Weight loss Start: 10-28-2024 End: 10-30-2024 Telephone encounter Viola Phelps APRN.STONE DECORATOR Work Phone: [facility] [place] Comment on above: Patient Question Start: 10-27-2024 End: 10-27-2024 Patient encounter procedure Kirstin Aldridge PA-C Work Phone: Neurology Comment on above: Parkinson's disease without dyskinesia, unspecified whether manifestations fluctuate (HCC) (Primary Dx); Unstable gait; Generalized weakness; Myalgias; Lightheadedness; Lumbar pain; Parkinsonian features Start: 10-27-2024 End: 10-27-2024 ambulatory KIRSTIN LADRIDGE Facility:[facility] Start: 10-14-2024 End: 10-14-2024 Refill Viola Phelps APRN.STONE DECORATOR Work Phone: [facility] Comment on above: Refill Request Start: 08-18-2024 End: 08-21-2024 Telephone encounter Viola Phelps APRN.STONE DECORATOR Work Phone: [facility] [place] Comment on above: Results Start: 08-13-2024 End: 08-13-2024 ambulatory [facility] Facility:[facility] Start: 07-30-2024 End: 08-03-2024 Telephone encounter Cale iMx MSW Navigation Start: 07-28-2024 End: 07-28-2024 Office outpatient visit 15 minutes Viola Phelps APRN.STONE DECORATOR Work Phone: [facility] [place] Comment on above: Parkinson's disease with dyskinesia and fluctuating manifestations (HCC) (Primary Dx); Lumbar foraminal stenosis; Encounter for immunization Start: 07-28-2024 End: 07-28-2024 ambulatory [facility] Facility:[facility] Start: 07-15-2024 End: 07-15-2024 Naomiill Basilio Abraham PA-C Work Phone: [facility] Comment on above: Refill Request Start: 07-07-2024 End: 09-25-2024 ambulatory Silvioleroy Suly Research Coordinator [facility] Comment on above: Parkinson's Foundati on [employer] Study Start: 07-07-2024 End: 09-25-2024 E-mail encounter from caregiver Cristina Tubbs Research Coordinator [facility] Start: 06-10-2024 End: 06-10-2024 Telephone encounter Basilio Maximilian Abraham PA-C Work Phone: [address] [place] [address] Comment on above: Consult Start: 05-18-2024 End: 05-18-2024 Emergency department patient visit Basilio NORIEGA Facility:[facility] Start: 05-05-2024 Telephone encounter Ellie damian Research Coordinator Work Phone: [facility] Comment on above: Research (IRB [id number] ) Start: 04-24-2024 ambulatory Ellie abdullahi Research Coordinator Work Phone: [facility] Comment on above: Research Start: 04-24-2024 E-mail encounter fro m caregiver Ellie Cortes Research Coordinator Work Phone: [facility] Start: 04-17-2024 Telephone encounter Allen redd Research Coordinator [facility] Start: 04-15-2024 Telephone encounter Yinka arcos [facility] Work Phone: [facility] Comment on above: Patient Question (Ge netics) Start: 04-07-2024 Telephone encounter Viola farrar APRN.STONE DECORATOR Work Phone: [facility] Comment on above: Lab Orders; Results Start: 04-06-2024 End: 04-06-2024 ambulatory HAWA ABRAHAM Facility:[facility] Start: 04-06-2024 End: 04-06-2024 ambulatory VIOLA PHELPS Facility:[facility] Start: 04-06-2024 End: 04-06-2024 Office outpatient visit 25 minutes Viola Phelps APRN.STONE DECORATOR Work Phone: [facility] Comment on above: Parkinson's disease with dyskinesia and fluctuating manifestations (HCC) (Primary Dx); Acquired hypothyroidism; Palpitations; Restless legs; Pruritus, unspecified; Family hx of aortic aneurysm; Screening for prostate cancer Start: 03-12-2024 Telephone encounter Rachel luke Research Coordinator Work Phone: [facility] Start: 01-21-2024 Telephone encounter Rachel luke Research Coordinator Work Phone: [facility] Start: 01-20-2024 Telephone encounter Kirstin zhong PA-C Work Phone: Neurology Comment on above: Patient Question Start: 01-08-2024 Telephone encounter Salvador Vargas MD Work Phone: Neurology Comment on above: Patient Question Start: 01-06-2024 Telephone encounter Basilio Abraham PA-C Work Phone: [facility] [place] Comment on above: Patient Question Start: 12-31-2023 Telephone encounter Cale Cordova Start: 12-30-2023 End: 12-30-2023 Patient encounter procedure Basilio Abraham PA-C Work Phone: [facility] [place] Comment on above: Lumbar foraminal and canal stenosis moderate-severe L4, L5 (Primary Dx); Parkinson's disease with dyskinesia and fluctuating manifestations (HCC); Acquired hypothyroidism; Underweight; Chronic pain syndrome; Age-related physical debility Start: 12-02-2023 End: 12-02-2023 Patient encounter procedure Basilio Abraham PA-C Work Phone: [facility] [place] Comment on above: Parkinsonian feature s (Primary Dx); Unstable gait; Generalized weakness; Myalgias; Fasciculations; Chronic midline low back pain without sciatica; Acquired hypothyroidism; Involution of toenail; Visual changes Start: 11-18-2023 End: 11-18-2023 ambulatory PA Basilio NORIEGA Work Phone: [facility] Work Phone: Start: 11-18-2023 End: 11-18-2023 Patient encounter procedure HARI NORIEGA Work Phone: [facility] Work Phone: Start: 11-18-2023 End: 11-18-2023 ambulatory Eddi Larson Facility:[facility] Start: 11-07-2023 End: 11-07-2023 Patient encounter procedure HARI NORIEGA Work Phone: [facility] Work Phone: Start: 11-07-2023 End: 11-07-2023 ambulatory Basilio NORIEGA [facility] Start: 07-29-2023 End: 07-29-2023 Patient encounter procedure Salvador Vargas MD Work Phone: Neurology Comment on above: Parkinsonian feature s (Primary Dx); Unstable gait; Generalized weakness; Myalgias; Fasciculation; Chronic midline low back pain without sciatica; Lightheadedness; Blurred vision Start: 07-19-2023 Telephone encounter Neurology Provid er Neurology Comment on above: Appointment; [facility] Start: 06-07-2023 Telephone encounter Basilio Abraham PA-C Work Phone: [facility] Comment on above: Patient Question Start: 05-21-2023 End: 05-21-2023 Patient encounter procedure Basilio Abraham PA-C Work Phone: [facility] Comment on above: Myalgia (Primary Dx) ; Polyarthralgia; Lumbar foraminal stenosis; DDD (degenerative disc disease), lumbar; Poor diet; Vitamin D deficiency; Underweight; Acquired hypothyroidism; Parkinson's syndrome (HCC) Start: 03-28-2023 End: 03-28-2023 Subsequent hospital visit by physician Mri Radio [facility] Wstr (I-Stat/1.5t) Work Phone: Radiology Comment on above: Transient cerebral i schemia, unspecified type [G45.9] Start: 03-18-2023 End: 03-18-2023 ambulatory [facility] Work Phone: Start: 03-18-2023 End: 03-18-2023 Discharged Recurring [facility] Work Phone: Start: 02-21-2023 End: 02-21-2023 Patient encounter procedure Patsy Daindramarcela DRILLER'S ASSISTANT.STONE DECORATOR Work Phone: Neurology Comment on above: Parkinsonian feature s (Primary Dx); Lumbar pain; Unstable gait; Transient cerebral ischemia, unspecified type; Double vision; Vertigo Start: 12-27-2022 End: 12-27-2022 Patient encounter procedure Patsy Soto DRILLER'S ASSISTANT.STONE DECORATOR Work Phone: Neurology Comment on above: Parkinsonian feature s (Primary Dx); Lumbar pain; Unstable gait Start: 10-30-2022 End: 10-30-2022 Patient encounter procedure Basilio LANGLEYC Work Phone: [facility] Comment on above: Parkinson's syndrome (HCC) (Primary Dx); Screening for prostate cancer Start: 10-22-2022 Telephone encounter Basilio NORIEGA-C Work Phone: [facility] Comment on above: Orders Start: 09-28-2022 End: 09-28-2022 ambulatory PA Basilio NORIEGA Work Phone: [facility] Work Phone: Start: 09-28-2022 End: 09-28-2022 Discharged Recurring HARI NORIEGA Work Phone: [facility] Start: 09-06-2022 End: 09-06-2022 Patient encounter procedure HARI NORIEGA Work Phone: [facility] Start: 08-22-2022 ambulatory Patsy Daindrabryce ronny DRILLER'S ASSISTANT.STONE DECORATOR Work Phone: Neurology Comment on above: Parkinson's Disease Start: 08-14-2022 Telephone encounter Basilio LANGELYC Work Phone: [facility] Comment on above: Referral Request Start: 08-02-2022 End: 08-02-2022 Patient encounter procedure HARI NORIEGA Work Phone: [facility] Start: 07-30-2022 Telephone encounter Basilio LANGLEYC Work Phone: [address] [place] [address] Comment on above: Orders Start: 07-25-2022 Orders Only Benton RIVASSTONE DECORATOR Work Phone: Neurology Comment on above: Parkinsonian feature s (Primary Dx) Start: 07-06-2022 ambulatory Basilio Thomas on PA-C Work Phone: [facility] [place] Comment on above: X-ray Start: 07-05-2022 End: 07-05-2022 Subsequent hospital visit by physician Hannah [facility] [place] Sultana Work Phone: Radiology Comment on above: Primary osteoarthrit is of both knees [M17.0] Start: 07-05-2022 End: 07-05-2022 Patient encounter procedure Shell Lewis MD Work Phone: [facility] Comment on above: Spinal stenosis, lum bar region, without neurogenic claudication (Primary Dx); Lumbar spondylosis; Lumbar radiculopathy; Meralgia paresthetica of right side; Primary osteoarthritis of both knees Start: 06-15-2022 Telephone encounter Basilio Abraham PA-C Work Phone: [facility] [place] Comment on above: Orders Start: 06-14-2022 End: 06-14-2022 Patient encounter procedure Basilio Abraham PA-C Work Phone: [facility] [place] Comment on above: Psoriasis (Primary D x); DDD (degenerative disc disease), lumbar; Lumbar foraminal stenosis Start: 05-03-2022 Telephone encounter Shell Lewis MD Work Phone: [facility] Comment on above: Patient Update Start: 05-03-2022 End: 05-03-2022 Patient encounter procedure Shell Lewis MD Work Phone: [facility] Comment on above: Lumbar spondylosis ( Primary Dx); Spinal stenosis, lumbar region, without neurogenic claudication; Lumbar radiculopathy; Meralgia paresthetica of right side Start: 04-17-2022 ambulatory Basilio rai PA-C Work Phone: [facility] [place] Comment on above: Rx renewal. Start: 03-08-2022 End: 03-08-2022 Patient encounter procedure Basilio Yao Jarad ANNA Work Phone: [facility] [place] Comment on above: DDD (degenerative di sc disease), lumbar (Primary Dx); Lumbar foraminal stenosis; Underweight; Parkinsonian features; Levoscoliosis Start: 02-07-2022 Telephone encounter Basilio Yao Jarad ANNA Work Phone: [facility] [place] Comment on above: Patient Question; Or ders Start: 02-06-2022 Telephone encounter Basilio Yao Jarad ANNA Work Phone: [facility] [place] Comment on above: Appointment; Future Appointment (Pain Management) Start: 02-05-2022 End: 02-05-2022 Patient encounter procedure Basilio Abraham SHOSHANA Work Phone: [facility] [place] Comment on above: Parkinsonian feature s (Primary Dx); Underweight; Hypothyroidism, acquired; Lumbar foraminal stenosis; Sacroiliac pain Start: 01-23-2022 ambulatory Basilio rai SHOSHANA Work Phone: [facility] [place] Start: 01-23-2022 Patient encounter procedure Basilio Abraham SHOSHANA Work Phone: [facility] [place] Comment on above: Referral to neurolog ist? Start: 12-13-2021 End: 12-13-2021 Subsequent hospital visit by physician Xr [facility] [place] Work Phone: Radiology Start: 03-20-2021 End: 03-20-2021 [facility]: [facility] Comment on above: Acute midline low ba ck pain with right-sided sciatica [M54.41] Procedures Date Procedure Procedure Detail Performing Clinician Start: 07-28-2024 [employer] COVI D-19 VACCINE AGE 12+ YR (TREIRNATMiguel) Viola Phelps APRN.STONE DECORATOR Work Phone: Start: 04-06-2024 Ecg routine ecg w/le ast 12 lds i&r only [facility] Provider Start: 11-18-2023 MRI of lumbar spine HARI NORIEGA Work Phone: Start: 11-07-2023 X-ray of lumbar spin e, two or three views PA CAYLA NORIEGA Work Phone: Start: 03-28-2023 Mri brain brain stem w/o contrast material Patsy Soto STONE DECORATOR Work Phone: Start: 08-02-2022 Plain x-ray of hand HARI NORIEGA Work Phone: Start: 05-03-2022 Adult depression scr eening assessment Shell Lewis MD Work Phone: Start: 02-05-2022 Adult depression scr eening assessment CAYLA Abraham PA-C Work Phone: Start: 12-13-2021 Radex hip unilateral with pelvis 2-3 views [facility] Provider Start: 03-20-2021 Radex spine lumbosac ral 2/3 views Basiilo QiuMaximilian Jarad ANNA Work Phone: Start: 09-09-2017 Adult depression scr eening assessment CAYLA Abraham PA-C Work Phone: Plan of Treatment Date Care Activity Detail Author Start: 10-28-2027 Diabetes Screening Diabetes Screening [facility] Start: 04-06-2027 Diabetes Screening Diabetes Screening [facility] Start: 04-16-2026 DIABETES SCREEN DIABETES SCREEN [facility] Start: 04-16-2026 Diabetes Screening Diabetes Screening [facility] Start: 02-19-2026 Annual PCP Team Chronic Disease Visit Annual PCP Team Chronic Disease Visit [facility] Start: 01-20-2026 Annual PCP Team Chronic Disease Visit Annual PCP Team Chronic Disease Visit [facility] Start: 12-02-2025 Annual PCP Team Chronic Disease Visit Annual PCP Team Chronic Disease Visit [facility] Start: 10-28-2025 Annual PCP Team Chronic Disease Visit Annual PCP Team Chronic Disease Visit [facility] Start: 07-28-2025 Annual PCP Team Chronic Disease Visit Annual PCP Team Chronic Disease Visit [facility] Start: 05-24-2025 Influenza vaccination Influenza Vaccine (Season Ended) [facility] Start: 05-19-2025 End: 05-19-2025 Patient encounter procedure 05/19/2025 3:20 PM EDT Office Visit [facility] [place] [address] [place] [address] Viola Phelps APRN.STONE DECORATOR [address] [place] [address] Follow Up--3 month (40 min per CH) Family [facility] [place] Comment on above: Follow Up--3 month (40 min per CH) Start: 04-06-2025 Annual PCP Team Chronic Disease Visit Annual PCP Team Chronic Disease Visit [facility] Start: 03-22-2025 Influenza [facility] Comment on above: Postponed from 05/24/2024 (Declined at t his time) Start: 02-19-2025 End: 02-19-2025 Patient encounter procedure 02/19/2025 2:20 PM EDT Office Visit Family Medicine [place] [address] [facility] [place], [place] [id number] Viola Phelps, ANIA.STONE DECORATOR [address] [facility] [place] [address] Follow Up--1 month rescheduled (40 min per CH) Family Dionicio [place] Comment on above: Follow Up--1 month rescheduled (40 min p er CH) Start: 02-05-2025 DIABETES SCREEN DIABETES SCREEN [facility] Start: 01-25-2025 Covid-19 Vaccine () Covid-19 Vaccine () [facility] Start: 12-30-2024 End: 12-30-2024 Patient encounter procedure 12/30/2024 3:20 PM EDT Office Visit Family Medicine [place] [address] [facility] [place], [place] [address] Viola Phelps APRN.STONE DECORATOR [address] [facility], [place] [address] 1m f/u (40 min per CH) Family Medicine [place] Comment on above: 1m f/u (40 min per CH) Start: 12-29-2024 Annual PCP Team Chronic Disease Visit Annual PCP Team Chronic Disease Visit [facility] Start: 12-02-2024 End: 12-02-2024 Patient encounter procedure 12/02/2024 1:40 PM EDT Office Visit Family [facility] [place] [address] [place] [address] Voila Phelps APRN.STONE DECORATOR [address] [place] [address] 1m f/u (40 min per CH) [facility] [place] Comment on above: 1m f/u (40 min per CH) Start: 12-01-2024 Annual PCP Team Chronic Disease Visit Annual PCP Team Chronic Disease Visit [facility] Start: 10-28-2024 End: 01-27-2025 25-hydroxyvitamin D3 [Mass/volume] in Serum or Plasma [facility] Comment on above: Expected: 10/28/2024, Expires: Start: 10-28-2024 End: 01-27-2025 CBC W Auto Differential panel - Blood [facility] Work Phone: Comment on above: Expected: 10/28/2024, Expires: Start: 10-28-2024 End: 01-27-2025 Comprehensive metabolic 2000 panel - Serum or Plasma [facility] Comment on above: Expected: 10/28/2024, Expires: Start: 10-28-2024 End: 10-28-2024 Patient encounter procedure [facility] Dionicio [place] Comment on above: 3m f/u 3m f/u (40 min per C H) Start: 10-28-2024 End: 01-27-2025 Thyrotropin [Units/volume] in Serum or Plasma [facility] Comment on above: Expected: 10/28/2024, Expires: Start: 10-28-2024 End: 01-27-2025 Thyroxine (T4) free [Mass/volume] in Serum or Plasma [facility] Comment on above: Expected: 10/28/2024, Expires: Start: 10-27-2024 End: 10-27-2024 Patient encounter procedure 10/27/2024 4:15 PM EST Office Visit Neurology [address] [place] [address] Kirstin Aldridge PA-C [address] [facility] [place] [address] Follow up Rx, Parkinsons Neurology Comment on above: Follow up Rx, Parkinsons Start: 09-23-2024 Advance Directive Discussion Advance Directive Discussion [facility] Start: 08-04-2024 End: 08-04-2024 Patient encounter procedure 08/04/2024 3:30 PM EST Office Visit Cardiology [address] [place] [address] Palpitations [R00.2] Cardiology Comment on above: Palpitations [R00.2] Start: 05-24-2024 Covid-19 Vaccine ( season) Covid-19 Vaccine () [facility] Start: 05-24-2024 Covid-19 Vaccine () Covid-19 Vaccine () [facility] Start: 05-24-2024 Influenza vaccination [facility] Start: 05-21-2024 ANNUAL PCP TEAM CHRONIC DISEASE VISIT ANNUAL PCP TEAM CHRONIC DISEASE VISIT [facility] Start: 04-23-2024 End: 04-23-2024 Patient encounter procedure Radiology Comment on above: Family hx of aortic aneurysm [Z82.49] Palpitations [R00.2] Start: 04-06-2024 End: 07-06-2024 Ferritin [Mass/volume] in Serum or Plasma [facility] Comment on above: Expected: 04/06/2024, Expires: Start: 04-06-2024 End: 07-06-2024 Iron and Iron binding capacity panel - Serum or Plasma [facility] Comment on above: Expected: 04/06/2024, Expires: 4 Start: 04-06-2024 End: 07-06-2024 Magnesium [Mass/volume] in Serum or Plasma [facility] Work Phone: Comment on above: Expected: 04/06/2024, Expires: 4 Start: 04-06-2024 End: 07-06-2024 PSA/PROSTATE SPECIFIC ANTIGEN SCREENING [facility] Comment on above: Expected: 04/06/2024, Expires: Start: 03-30-2024 End: 03-30-2024 Patient encounter procedure 03/30/2024 3:00 PM EDT Office Visit [facility] [place] [address] [place], [place] [id number] Basilio Abraham PA-C [address] [facility] [place] [address] 3 month follow up [facility] Comment on above: 3 month follow up Start: 03-30-2024 End: 06-29-2024 CBC W Auto Differential panel - Blood CBC + DIFF Lab Routine Acquired hypothyroidism Underweight Expected: 03/30/2024, Expires: 06/29/2024 [facility] Work Phone: Comment on above: Expected: 03/30/2024, Expires: Start: 03-30-2024 End: 06-29-2024 Comprehensive metabolic 2000 panel - Serum or Plasma COMP METABOLIC PANEL Lab Routine Acquired hypothyroidism Underweight Expected: 03/30/2024, Expires: 06/29/2024 [facility] Work Phone: Comment on above: Expected: 03/30/2024, Expires: Start: 03-30-2024 End: 06-29-2024 Prealbumin [Mass/volume] in Serum or Plasma PREALBUMIN BLD Lab Routine Underweight Expected: 03/30/2024, Expires: 06/29/2024 [facility] Work Phone: Comment on above: Expected: 03/30/2024, Expires: Start: 03-30-2024 End: 06-29-2024 Thyrotropin [Units/volume] in Serum or Plasma TSH BLD Lab Routine Acquired hypothyroidism Underweight Expected: 03/30/2024, Expires: 06/29/2024 [facility] Work Phone: Comment on above: Expected: 03/30/2024, Expires: Start: 03-22-2024 Influenza vaccination Influenza Vaccine (#1) [facility]iguez Comment on above: Postponed from 05/24/2023 (Declined at t his time) Start: 02-04-2024 End: 02-04-2024 Patient encounter procedure 02/04/2024 2:30 PM EDT Office Visit [facility] [address] [place], [place] [id number] Tonya Conroy, OD [address] [place] [address] Visual changes [H53.9] Ophthalmology Comment on above: Visual changes [H53.9] Start: 01-22-2024 End: 01-22-2024 Patient encounter procedure 01/22/2024 3:30 PM EDT Office Visit Neurology [address] [place], [place] [id number] Kirstin Aldridge PA-C [address] [place], [place] [id number] Follow up Rx, Parkinsons Neurology Comment on above: Follow up Rx, Parkinsons Start: 11-21-2023 Covid-19 Vaccine ( season) Covid-19 Vaccine () [facility] Start: 10-30-2023 ANNUAL PCP TEAM CHRONIC DISEASE VISIT ANNUAL PCP TEAM CHRONIC DISEASE VISIT [facility] Start: 09-23-2023 Advance Directive Discussion Advance Directive Discussion [facility] Start: 09-23-2023 Behavioral Health Screening Behavioral Health Screening [facility] Start: 09-23-2023 Depression Assessment Depression Assessment [facility] Start: 06-14-2023 ANNUAL PCP TEAM CHRONIC DISEASE VISIT ANNUAL PCP TEAM CHRONIC DISEASE VISIT [facility] Start: 05-24-2023 Covid-19 Vaccine ( season) Covid-19 Vaccine ( season) [facility] Start: 05-24-2023 Influenza vaccination [facility] Start: 05-22-2023 End: 07-22-2023 25-hydroxyvitamin D3 [Mass/volume] in Serum or Plasma VITAMIN D 25 HYDROXY Lab Routine Polyarthralgia Vitamin D deficiency Expected: 05/22/2023, Expires: 07/22/2023 [facility] Work Phone: Comment on above: Expected: 05/22/2023, Expires: Start: 05-22-2023 End: 07-22-2023 Ascorbate [Mass/volume] in Serum or Plasma VITAMIN C Lab Routine Polyarthralgia Poor diet Expected: 05/22/2023, Expires: 07/22/2023 [facility] Work Phone: Comment on above: Expected: 05/22/2023, Expires: Start: 05-22-2023 End: 07-22-2023 Cobalamin (Vitamin B12) [Mass/volume] in Serum or Plasma VITAMIN B12 BLOOD Lab Routine Polyarthralgia Poor diet Expected: 05/22/2023, Expires: 07/22/2023 [facility] Work Phone: Comment on above: Expected: 05/22/2023, Expires: Start: 05-22-2023 End: 07-22-2023 Creatine kinase [Enzymatic activity/volume] in Serum or Plasma CK CREATINE KINASE Lab Routine Myalgia Expected: 05/22/2023, Expires: 07/22/2023 [facility] Work Phone: Comment on above: Expected: 05/22/2023, Expires: Start: 05-22-2023 End: 07-22-2023 Folate [Mass/volume] in Serum or Plasma FOLATE SERUM Lab Routine Polyarthralgia Poor diet Expected: 05/22/2023, Expires: 07/22/2023 [facility] Work Phone: Comment on above: Expected: 05/22/2023, Expires: Start: 05-22-2023 End: 07-22-2023 Lactate dehydrogenase [Enzymatic activity/volume] in Serum or Plasma LD LACTATE DEHYDRO Lab Routine Myalgia Expected: 05/22/2023, Expires: 07/22/2023 [facility] Work Phone: Comment on above: Expected: 05/22/2023, Expires: 3 Start: 05-21-2023 End: 07-21-2023 MICHELLE BY IFA WITH REFLEX MICHELLE BY IFA WITH REFLEX Lab Routine Polyarthralgia Expected: 05/21/2023, Expires: 07/21/2023 [facility] Work Phone: Comment on above: Expected: 05/21/2023, Expires: 3 Start: 05-21-2023 End: 07-21-2023 Borrelia burgdorferi IgG and IgM panel - Serum LYME AB LATE >30 DAYS SYMPTOMS Lab Routine Polyarthralgia Expected: 05/21/2023, Expires: 07/21/2023 [facility] Work Phone: Comment on above: Expected: 05/21/2023, Expires: 3 Start: 05-21-2023 End: 07-21-2023 C reactive protein [Mass/volume] in Serum or Plasma C-REACTIVE PROTEIN (CRP) Lab Routine Myalgia Polyarthralgia Expected: 05/21/2023, Expires: 07/21/2023 [facility] Work Phone: Comment on above: Expected: 05/21/2023, Expires: 3 Start: 05-21-2023 End: 07-21-2023 Erythrocyte sedimentation rate SED RATE WESTERGREN Lab Routine Myalgia Polyarthralgia Expected: 05/21/2023, Expires: 07/21/2023 [facility] Work Phone: Comment on above: Expected: 05/21/2023, Expires: 3 Start: 05-21-2023 End: 07-21-2023 Urate [Mass/volume] in Serum or Plasma URIC ACID BLOOD Lab Routine Polyarthralgia Expected: 05/21/2023, Expires: 07/21/2023 [facility] Work Phone: Comment on above: Expected: 05/21/2023, Expires: 3 Start: 05-03-2023 Adult depression screening assessment DEPRESSION SCREENING [facility] Start: 03-22-2023 Influenza vaccination INFLUENZA (#1) [facility] Comment on above: Postponed from 05/24/2022 (Declined at t his time) Start: 03-08-2023 ANNUAL PCP TEAM CHRONIC DISEASE VISIT ANNUAL PCP TEAM CHRONIC DISEASE VISIT [facility] Start: 02-05-2023 Adult depression screening assessment DEPRESSION SCREENING [facility] Start: 02-05-2023 ANNUAL PCP TEAM CHRONIC DISEASE VISIT ANNUAL PCP TEAM CHRONIC DISEASE VISIT [facility] Start: 02-05-2023 COVID-19 VACCINE (4 - Booster for Pfizer series) COVID-19 VACCINE (4 - Booster for Pfizer series) [facility] Comment on above: Postponed from 12/23/2021 (Currently Juwan eduled) Start: 02-05-2023 PNEUMOCOCCAL: 65+ (1 - PCV) PNEUMOCOCCAL: 65+ (1 - PCV) [facility] Comment on above: Postponed from 2010 (Declined at t his time) Start: 02-05-2023 PNEUMOVAX AGE 65 AND OVER WITH 5YR LOOKBACK (#1) PNEUMOVAX AGE 65 AND OVER WITH 5YR LOOKBACK (#1) [facility] Comment on above: Postponed from 2010 (Declined at t his time) Start: 02-05-2023 SHINGRIX VACCINE (1 of 2) SHINGRIX VACCINE (1 of 2) [facility] Comment on above: Postponed from 1995 (Insurance Cov erage) Start: 02-05-2023 Urine microalbumin profile DTAP,TDAP,TD (1 - Tdap) [facility] Comment on above: Postponed from 1964 (Insurance Cov erage) Start: 01-07-2023 DIABETES SCREEN DIABETES SCREEN [facility] Start: 12-23-2022 COVID-19 VACCINE (6 - Pfizer series) COVID-19 VACCINE (6 - Pfizer series) [facility] Start: 10-30-2022 End: 12-30-2022 IgA [Mass/volume] in Serum or Plasma IGA BLD Lab Routine Parkinson's syndrome (HCC) Expected: 10/30/2022, Expires: 12/30/2022 [facility] Work Phone: Comment on above: Expected: 10/30/2022, Expires: Start: 10-30-2022 End: 12-30-2022 IgE [Units/volume] in Serum or Plasma IGE BLD Lab Routine Parkinson's syndrome ([facility]) Expected: 10/30/2022, Expires: 12/30/2022 [facility] Work Phone: Comment on above: Expected: 10/30/2022, Expires: 3 Start: 10-30-2022 End: 12-30-2022 IgG [Mass/volume] in Serum or Plasma IGG Lab Routine Parkinson's syndrome ([facility]) Expected: 10/30/2022, Expires: 12/30/2022 [facility] Work Phone: Comment on above: Expected: 10/30/2022, Expires: 3 Start: 10-30-2022 End: 12-30-2022 IgM [Mass/volume] in Serum or Plasma IGM Lab Routine Parkinson's syndrome ([facility]) Expected: 10/30/2022, Expires: 12/30/2022 [facility] Work Phone: Comment on above: Expected: 10/30/2022, Expires: 3 Start: 10-30-2022 End: 12-30-2022 PSA/PROSTSPECAG SCRN PSA/PROSTSPECAG SCRN Lab Routine Screening for prostate cancer Expected: 10/30/2022, Expires: 12/30/2022 [facility] Work Phone: Comment on above: Expected: 10/30/2022, Expires: 3 Start: 09-25-2022 Patient referral [facility] Work Phone: Start: 09-23-2022 ADVANCE DIRECTIVE DISCUSSION ADVANCE DIRECTIVE DISCUSSION [facility] Start: 09-23-2022 DEPRESSION ASSESSMENT DEPRESSION ASSESSMENT [facility] Start: 05-24-2022 Influenza vaccination [facility] Start: 05-15-2022 ANNUAL PCP TEAM CHRONIC DISEASE VISIT ANNUAL PCP TEAM CHRONIC DISEASE VISIT [facility] Start: 04-05-2022 COVID-19 VACCINE (5 - Booster for Pfizer series) COVID-19 VACCINE (5 - Booster for Pfizer series) [facility] Start: 02-05-2022 End: 04-07-2022 CBC panel - Blood by Automated count [facility] Work Phone: Comment on above: Expected: 02/05/2022, Expires: 2 Start: 02-05-2022 End: 04-07-2022 Comprehensive metabolic 2000 panel - Serum or Plasma [facility] Work Phone: Comment on above: Expected: 02/05/2022, Expires: 2 Start: 02-05-2022 End: 04-07-2022 Folate [Mass/volume] in Serum or Plasma [facility] Work Phone: Comment on above: Expected: 02/05/2022, Expires: 2 Start: 02-05-2022 End: 04-07-2022 Thyrotropin [Units/volume] in Serum or Plasma [facility] Work Phone: Comment on above: Expected: 02/05/2022, Expires: 2 Start: 02-05-2022 End: 04-07-2022 VITAMIN B1 (THIAMINE), WHOLE BLOOD [facility] Work Phone: Comment on above: Expected: 02/05/2022, Expires: 2 Start: 02-05-2022 End: 04-07-2022 VITAMIN B12 BLOOD [facility] Work Phone: Comment on above: Expected: 02/05/2022, Expires: 2 Start: 09-23-2021 ADVANCE DIRECTIVE DISCUSSION ADVANCE DIRECTIVE DISCUSSION [facility] Start: 09-23-2021 DEPRESSION ASSESSMENT DEPRESSION ASSESSMENT [facility] Start: 2020 RSV Vaccine (1 - 1-dose 75+ series) RSV Vaccine (1 - 1-dose 75+ series) [facility] Start: 09-09-2018 Adult depression screening assessment DEPRESSION SCREENING [facility] Start: 2010 Pneumococcal Vaccine: 65+ (1 - PCV) Pneumococcal Vaccine: 65+ (1 - PCV) [facility] Start: 2010 Pneumococcal Vaccine: 65+ (1 of 1 - PCV) Pneumococcal Vaccine: 65+ (1 of 1 - PCV) [facility] Start: 2010 PNEUMOCOCCAL: 65+ (1 - PCV) PNEUMOCOCCAL: 65+ (1 - PCV) [facility] Start: 2010 PNEUMOVAX AGE 65 AND OVER WITH 5YR LOOKBACK (#1) PNEUMOVAX AGE 65 AND OVER WITH 5YR LOOKBACK (#1) [facility] Start: 2005 RSV Vaccine (1 - 1-dose 60+ series) RSV Vaccine (1 - 1-dose 60+ series) [facility] Start: 1995 Pneumococcal Vaccine: 50+ (1 of 1 - PCV) Pneumococcal Vaccine: 50+ (1 of 1 - PCV) [facility] Start: 1995 SHINGRIX VACCINE (1 of 2) SHINGRIX VACCINE (1 of 2) [facility] Start: 1964 Urine microalbumin profile [facility] Start: 1963 Anxiety Screening Anxiety Screening [facility] Start: 1963 Depression Screening Depression Screening [facility] ECG COMPLETE [facility] Comment on above: Ordered: 04/06/2024 End: 04-06-2025 Echocardiography ECHO Cardiology Routine Palpitations 1 Occurrences starting 04/06/2024 until 04/06/2025 [facility] Comment on above: 1 Occurrences starting 04/06/2024 until 04/06/2025 Hemoglobin.gastroint mylain al.lower [Presence] in Stool by Immunoassay IMMUNOCHEMICAL FECAL OCCULT BLOOD TEST Lab Routine Weight loss Ordered: 12/02/2024 [facility] Work Phone: Comment on above: Ordered: 12/02/2024 End: 03-22-2024 Mri brain brain stem w/o contrast material MRI BRAIN WO IVCON Radiology Routine Transient cerebral ischemia, unspecified type 1 Occurrences starting 02/21/2023 until 03/22/2024 [facility] Work Phone: Comment on above: 1 Occurrences starting 02/21/2023 until 03/22/2024 Patient referral [facility] Work Phone: End: 05-06-2025 US Abdominal Aorta for screening US SCREENING FOR AAA Radiology Routine Family hx of aortic aneurysm 1 Occurrences starting 04/06/2024 until 05/06/2025 [facility] Comment on above: 1 Occurrences starting 04/06/2024 until 05/06/2025 End: 08-05-2023 XR HAND GENERAL 3V PA/LAT/OBL LEFT XR HAND GENERAL 3V PA/LAT/OBL LEFT Radiology Routine Left hand pain Left wrist pain 1 Occurrences starting 07/06/2022 until 08/05/2023 [facility] Work Phone: Comment on above: 1 Occurrences starting 07/06/2022 until 08/05/2023 XR KNEE GENERAL 4V A P BOTH/PA BOTH/LAT/MERC LEFT XR KNEE GENERAL 4V AP BOTH/PA BOTH/LAT/MERC LEFT Radiology Routine Primary osteoarthritis of both knees Ordered: 07/05/2022 [facility] Work Phone: Comment on above: Ordered: 07/05/2022 End: 08-04-2023 XR KNEE GENERAL 4V AP BOTH/PA BOTH/LAT/MERC RIGHT XR KNEE GENERAL 4V AP BOTH/PA BOTH/LAT/MERC RIGHT Radiology Routine Primary osteoarthritis of both knees 1 Occurrences starting 07/05/2022 until 08/04/2023 [facility] Work Phone: Comment on above: 1 Occurrences starting 07/05/2022 until 08/04/2023 End: 07-05-2022 XR KNEE GENERAL 4V AP BOTH/PA BOTH/LAT/MERC RIGHT [facility] Work Phone: Comment on above: 1 Occurrences starting 07/05/2022 until 07/05/2022 End: 08-05-2023 XR WRIST GENERAL 3V PA/LAT/OBL LEFT XR WRIST GENERAL 3V PA/LAT/OBL LEFT Radiology Routine Left hand pain Left wrist pain 1 Occurrences starting 07/06/2022 until 08/05/2023 [facility] Work Phone: Comment on above: 1 Occurrences starting 07/06/2022 until 08/05/[address] [facility] Immunizations Immunization Date Immunization Notes Care Provider Portillo perez 07-28-2024 COVID-19 vaccine, ag e 12+ yr (PFIZER-BIONTECH COMIRNATY) Viola Phelps APRN.STONE DECORATOR Work Phone: [facility] 12-15-2020 COVID-19 vaccine, ag e 12+ yr (PFIZER-BIONTECH - PURPLE TOP) NA Abraham PA-C Work Phone: [facility] 11-24-2020 COVID-19 vaccine, ag e 12+ yr (PFIZER-BIONTECH - PURPLE TOP) NA Abraham PA-C Work Phone: [facility] 10-13-2018 influenza virus vacc ine, unspecified formulation NA Abraham PA-C Work Phone: [facility] Payers Date Payer Category Payer Self-pay [id number] 2023 Unknown [id number] 2020 Private Health Insurance [facility] [id number] 2020 Unknown [employer]IC[employer] SUPPLEMENT [id number] 2020-Present [phone] [place] [id number] Indemnity [id number] 2020 Unknown [employer]IC[employer] SUPPLEMENT [id number] 2020-Present [phone] [address] [place] [address] [employer] [id number] 2020 Medicare [id number] 2010 Medicare MEDICARE MEDICAR E A AND B [id number] 2010-Present [phone] [place] [address] Medicare [id number] 2010 Medicare [id number] 2010 Medicare [id number] Unknown [id number] Unknown [id number] Unknown [id number] Unknown [id number] Social History Date Type Detail Facility Start: 03-28-2015 End: 10-30-2022 Tobacco smoking status NHIS Ex-smoker [facility] Start: 03-28-2015 End: 10-30-2022 Tobacco use and exposure Smokeless tobacco non-user [facility] Start: 09-26-2021 End: 02-19-2025 Alcohol intake Current non-drinker of alcohol (finding) [facility] Start: 01-23-2020 History SDOH Alcohol Frequency 1 [facility] Start: 10-13-2018 History SDOH Alcohol Comment drank some in the past [facility] Start: 01-23-2020 History SDOH Social Connections Phone 2 [facility] Start: 01-23-2020 History SDOH Social Connections Living 5 [facility] Start: 01-23-2020 History SDOH Physica l Activity MPS 3 [facility] Start: 01-23-2020 History SDOH Financial 4 [facility] Start: 01-22-2020 Education 19 [facility] Start: 10-13-2018 End: 10-30-2022 Tobacco Comment 1PPD x 8-10 years [facility] Start: 1945 Sex Assigned At Not on file [facility] Start: 02-18-2021 End: 07-05-2022 Exposure to SARS-CoV-2 (event) Not sure [facility] History of tobacco use Current smoker [facility] Work Phone: Start: 09-06-2022 End: 11-07-2023 Tobacco smoking status NHIS Unknown if ever smoked [facility] Start: 1945 Sex Assigned At Male W [facility] Start: 01-22-2020 End: 02-21-2023 History of Social function [facility] Start: 01-22-2020 End: 02-21-2023 Social connection and isolation panel [facility] Do you belong to any clubs or organizations such as worship groups, unions, fraternal or athletic groups, or school groups? No [facility] Are you now , , , , never or living with a partner? [facility] How often to you hav e a drink containing alcohol? Never [facility] Average Number of Drinks Not on file [facility] Work Phone: How hard is it for y ou to pay for the very basics like food, housing, medical care, and heating Not very hard [facility] Do you feel stress - tense, restless, nervous, or anxious, or unable to sleep at night because your mind is troubled all the time - these days [OSQ] Not at all [facility] (I/We) worried melina er (my/our) food would run out before (I/we) got money to buy more. Never true [facility] Functional Status Date Assessment Result Facility 03-28-2015 Are you deaf, or do you have serious difficulty hearing No 03/28/2015 11:48 AM EDT Ester Maradiaga Ma No [facility] 03-28-2015 Are you blind, or do you have serious difficulty seeing, even when wearing glasses No 03/28/2015 11:48 AM EDT Hiren RaiLashonna No [facility] 03-28-2015 Do you have serious difficulty walking or climbing stairs Yes 03/28/2015 11:48 AM EDT Hiren Rai Ester Yes [facility] 03-28-2015 Do you have difficul ty dressing or bathing No 03/28/2015 11:48 AM EDT Hiren Rai Ester No [facility] 03-28-2015 Because of a physica l, mental, or emotional condition, do you have difficulty doing errands alone such as visiting a physician's office or shopping No 03/28/2015 11:48 AM EDT Hiren Rai Ester No [facility] Mental Status Date Assessment Result Facility 03-28-2015 Because of a physica l, mental, or emotional condition, do you have serious difficulty concentrating, remembering, or making decisions No 03/28/2015 11:48 AM EDT Hiren Rai Ester No [facility] Clinical Notes 03-20-2021 to 02-19-2025 Patient InstructionsViola [...] in 3 months. documented in this encounter [facility] 02-19-2025 Note HNO ID: [id number] Author: VIOLA PHELPS APRN.CNP Service: ? Author [...] morning ON AN EMPTY STOMACH FOR THYROID Ihxjzcd-Wzbiyxhdxksri-Drnbhqxu (EXCEDRIN) 250-250-65 mg per tablet Take 1 [...] as needed for worsening/no improvement. Viola Phelps APRN.[facility] 02-19-2025 History of Present illness Narrative This [...] morning ON AN EMPTY STOMACH FOR THYROID Cxphkln-Ulqoujqtbvrzc-Znzvsqcg (EXCEDRIN) 250-250-65 mg per tablet Take 1 [...] Viola Phelps APRN.JEZ documented in this encounter [facility] 01-25-2025 Telephone encounter Note [facility] spoke with Jovita Reynolds, and she is going to reach out to patient to discuss assisted living options and how she can assist patient with the process. Gail noted that she would let this [facility] and SHREE Rod know update on AL for patient. [facility] 01-25-2025 Miscellaneous Notes [facility] spoke with Jovita Reynolds, and she is going to reach out to patient to discuss assisted living options and how she can assist patient with the process. Gail noted that she would let this [facility] know update on AL for patient. Patient called [facility] and asked for agency that could help him connect with appropriate assisted living/superintendent container terminal care option in the community. Sw and [...] to discuss referral. documented in this encounter [facility] 01-22-2025 Telephone encounter Note Patient called [facility] and asked for agency that could help him connect with appropriate assisted living/[facility] care option in the community. Sw and [...] call this Sw back to discuss referral. [facility] 01-20-2025 Instructions Viola Phelps APRN.STONE DECORATOR - 01/20/2025 3:34 PM EDT Start the remeron (mirtazapine) bedtime. You can take the tizanidine twice daily as needed for pain. Recheck in 1 month. documented in this encounter [facility] 01-20-2025 Note HNO ID: [id number] Author: VIOLA PHELPS APRN.JEZ Service: ? Author [...] been considering moving to assisted living vs [facility]. It is getting more difficult with self [...] melatonin 1 mg chew Take by mouth. Ptypjzf-Rcbtgmvyppinl-Wzlcxnko (EXCEDRIN) 250-250-65 mg per tablet Take 1 [...] as needed for worsening/no improvement. Viola Phelps APRN.[facility] 01-20-2025 History of Present illness Narrative This [...] been considering moving to assisted living vs [facility]. It is getting more difficult with self [...] melatonin 1 mg chew Take by mouth. Nrndybh-Ythtumyeujnnd-Dhbgjeen (EXCEDRIN) 250-250-65 mg per tablet Take 1 [...] Viola Phelps APRN.JEZ documented in this encounter [facility] 12-07-2024 Telephone encounter Note Your stool blood test was negative (normal). I recommend repeating colorectal cancer screening in one year. Per [facility] 12-07-2024 Telephone encounter Note ----- Message from [...] note that says to see Phone Note. [facility] 12-07-2024 Miscellaneous Notes Your stool blood test was negative (normal). I recommend repeating colorectal cancer screening in one year. Per [facility] ----- Message from Viola Phelps APRN.CNP sent at 12/07/2024 9:21 AM EDT ----- Its under the 2/ phone note. ----- Message ----- From: Pradeep Angel LPN Sent: 12/07/2024 8:43 AM EDT To: Viola Phelps APRN.STONE DECORATOR ----- Message from Pradeep Angel LPN sent at 12/07/2024 8:43 AM EDT ----- There isn't a result note to view. Just a note that says to see Phone Note. documented in this encounter [facility] 12-02-2024 Telephone encounter Note [facility] received message from patient regarding home delivered meal options that offer vegetarian menu. Sw will reach out to patient tomorrow to discuss home delivered meal plan options [facility] 12-02-2024 Miscellaneous Notes [facility] received message from patient regarding home delivered meal options that offer vegetarian menu. Sw will reach out to patient tomorrow to discuss home delivered meal plan options See [facility] 11/30 note. [facility] has mailed out [employer] Older Adult Resource Guide along with psychometric examiner agency options in [place]. documented in this encounter [facility] 12-02-2024 Telephone encounter Note See [facility] 11/30 note. [facility] has mailed out [employer] Older Adult Resource Guide along with psychometric examiner agency options in [place]. [facility] 12-02-2024 Viola Lawrence APRN.JEZ - 12/02/2024 2:28 PM EDT Do the stool kit. Work on adding calories to diet and high-calorie drinks. Recheck in a month. documented in this encounter [facility] 12-02-2024 Note HNO ID: [id number] Author: VIOLA PHELPS APRN.JEZ Service: ? Author [...] Didn't feel that it helped the pain. [place] that it caused him to be off [...] melatonin 1 mg chew Take by mouth. Irqcith-Hscptgtgoycuu-Hslqtlgy (EXCEDRIN) 250-250-65 mg per tablet Take 1 [...] - IMMUNOCHEMICAL FECAL OCCULT BLOOD TEST - TAPE SEWING MACHINE OPERATOR [CONSULT TO SOCIAL WORK] Recheck weight in [...] needed for worsening/no improvement. Viola Phelps APRN.JEZ [facility] 12-02-2024 History of Present illness Narrative [...] Didn't feel that it helped the pain. [place] that it caused him to be off [...] melatonin 1 mg chew Take by mouth. Qgvfhyy-Iptwyizsdpkjx-Raosdifm (EXCEDRIN) 250-250-65 mg per tablet Take 1 [...] - IMMUNOCHEMICAL FECAL OCCULT BLOOD TEST - TAPE SEWING MACHINE OPERATOR [CONSULT TO SOCIAL WORK] Recheck weight in [...] as needed for worsening/no improvement. Viola Phelps APRN.STONE DECORATOR documented in this encounter [facility] 11-30-2024 Telephone encounter Note Noted. Detailed message left on pt's identified VM of message below. Pattie Balderrama RN [facility] 11-30-2024 Miscellaneous Notes Noted. Detailed message left [...] Pattie Balderrama RN documented in this encounter [facility] 11-30-2024 Telephone encounter Note It was actually a weight check to ensure that his weight was stable. He already had the thyroid levels checked. I'm also interested in how he is doing on the new medication (glycopyrrolate). Viola Phelps APRN.CNP [facility] 11-30-2024 Telephone encounter Note Patient called Sw and would like this Sw to mail him [facility] [place] [facility], [facility], [facility] resources. Sw will compile home care and AL information and mail out to patient home. [facility] 11-30-2024 Miscellaneous Notes Patient called Sw and would like this Sw to mail him [place] [facility], [facility], [facility] resources. Sw will compile home care and AL information and mail out to patient home. documented in this encounter [facility] 11-30-2024 Telephone encounter Note Patient has 1 month F/U appt scheduled for this Saturday 12/02 with Viola Phelps CNP Please calling to ask if he needs to come to this appt, as last OV note on 10/28/24 states pt was to recheck thyroid levels in [address] repeat thyroid lab orders. Please call patient with update. Pattie Balderrama RN [facility] 11-06-2024 Telephone encounter Note Sw left message for patient to return call to discuss psychometric examiner agency options in [place]. [facility] 11-06-2024 Miscellaneous Notes Sw left message for patient to return Sw call to discuss psychometric examiner agency options in [place]. Sw left message for patient to return call to discuss home care vs. Assisted living options in the area. Sw called patient to discuss home care vs. [facility] care options. Sw will also discuss [facility] and [facility] as possible referrals to assist with information regarding psychometric examiner, AL options in the community. No answer and vmail is full. Will try call again later. documented in this encounter [facility] 10-30-2024 Telephone encounter Note Pt notified. He verbalized understanding. Pradeep Angel LPN [facility] 10-30-2024 Miscellaneous Notes Pt notified. He verbalized [...] Mel Garrett, RN documented in this encounter [facility] 10-30-2024 Telephone encounter Note Can please let [...] twice daily as needed. Viola Phelps APRN.JEZ [facility] 10-30-2024 Telephone encounter Note Sw left message for patient to return Sw call to discuss home care vs. Assisted living options in the area. [facility] 10-29-2024 Telephone encounter Note Sw called patient to discuss home care vs. terminal worker care options. Sw will also discuss [employer] and [facility] [employer] as possible referrals to assist with information regarding psychometric examiner, AL options in the community. No answer and vmail is full. Will try call again later. [facility] 10-28-2024 Telephone encounter Note Patient calls [...] eliminate the excessive slobbering. Mel Garrett RN [facility] 10-28-2024 Instructions Viola Phelps APRN.JEZ - 10/28/2024 3:05 PM EST Get the labwork. Start the cymbalta. Recheck in 1 month. documented in this encounter [facility] 10-28-2024 Note HNO ID: [id number] Author: VIOLA PHELPS APRN.JEZ Service: ? Author [...] melatonin 1 mg chew Take by mouth. Cyyjltm-Pdqtfzdbrspee-Cistpxrv (EXCEDRIN) 250-250-65 mg per tablet Take 1 [...] needed for worsening/no improvement. Viola Phelps APRN.JEZ [facility] 10-28-2024 History of Present illness Narrative [...] melatonin 1 mg chew Take by mouth. Mpkmeif-Vaxihipqypggm-Qryyodby (EXCEDRIN) 250-250-65 mg per tablet Take 1 [...] as needed for worsening/no improvement. Viola Phelps APRN.STONE DECORATOR documented in this encounter [facility] 10-27-2024 Instructions Kirstin Aldridge PA-C - 10/27/2024 [...] in 3-4 months documented in this encounter [facility] 10-27-2024 Note HNO ID: [id number] Author: KIRSTIN ALDRIDGE PA-C Service: ? Author Type: Physician Assembler [employer]lectric Heater Type: Progress Notes Filed: 10/27/2024 16:51 Note [...] syncope, vision changes (more content not included)... [facility] 10-27-2024 History of Present illness Narrative [...] melatonin 1 mg chew Take by mouth. Bjbhsxy-Zmnrrhlhoouxl-Rfherzpj (EXCEDRIN) 250-250-65 mg per tablet Take 1 [...] which included preparing to see the patient, fvxq-lg-rmnf patient care, completing clinical documentation, obtaining and/or reviewing separately obtained history, performing a medically appropriate examination, counseling and educating the patient/family/caregiver, and ordering medications, tests, or procedures. This document has been created with the use of voice recognition technology. It may contain inaccuracies: (e.g. misspellings, inaccurate syntax or word sense) that have escaped review. documented in this encounter [facility] 10-14-2024 Telephone encounter Note Prescription Refill Information [...] AN EMPTY STOMACH FOR THYROID Jessica Martinez [facility] October 14, 2024 11:12 AM [facility] 10-14-2024 Miscellaneous Notes Prescription Refill Information The [...] ON AN EMPTY STOMACH FOR THYROID [facility] October 14, 2024 11:12 AM documented in this encounter [facility] 08-21-2024 Telephone encounter Note patient notified and verbalized understanding. PATIENT also reminded of upcoming appointments . Sudarshan Mena LPN [facility] 08-21-2024 Miscellaneous Notes patient notified and verbalized [...] Viola Phelps APRN.CNP documented in this encounter [facility] 08-19-2024 Telephone encounter Note Left a message for pt to call the office and ask to speak to a nurse. Kerri Herman LPN [facility] 08-18-2024 Telephone encounter Note Can please let patient know that I received his echo results. It does show a little bit of leakage in the mitral valve. As long as he is not having symptoms, we generally just recheck this in about 3 years to ensure that it is not worsening. Viola Phelps APRN.JEZ [facility] 07-31-2024 Telephone encounter Note Patient reports that his issue with transportation is when he has had to go to [place]. Patient notes I don't like riding that far to [place] and I want to have more of my visits done locally. Patient reports that he is looking for help around the home ie. Light housekeeping, meal prep, laundry, possibly personal care. Sw noted [facility] and [facility]. Patient also mentioned possibly looking at independent and assisted living options. Sw noted that [employer] is an agency that has been helpful to individuals looking at independent and assisted living options. [facility] also a good agency with resource options. Sw noted that she would work on compiling home care and [facility] resource guide and mail out to patient home. [facility] 07-31-2024 Miscellaneous Notes Patient reports that his issue with transportation is when he has had to go to [place]. Patient notes I don't like riding that far to [place] and I want to have more of my visits done locally. Patient reports that he is looking for help around the home ie. Light housekeeping, meal prep, laundry, possibly personal care. Sw noted [facility] and [facility]. Patient also mentioned possibly looking at independent and assisted living options. Sw noted that [employer] is an agency that has been helpful to individuals looking at independent and assisted living options. [facility] [facility] also a good agency with resource options. Sw noted that she would work on compiling home care and [facility] resource guide and mail out to patient home. Sw left patient message to have call returned in regards to transportation resource options in the community for medical and non medical appts. documented in this encounter [facility] 07-30-2024 Telephone encounter Note Sw left patient message to have call returned in regards to transportation resource options in the community for medical and non medical appts. [facility] 07-28-2024 Instructions Viola Phelps APRN.CNP - 07/28/2024 1:50 PM EST Reschedule the echocardiogram. Reschedule w/ neurology. 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 Check with the [employer] re: insurance coverage for a home heart monitor. Recheck in 3 months. documented in this encounter [facility] 07-28-2024 Note HNO ID: [id number] Author: VIOLA PHELPS APRN.CNP Service: ? Author [...] melatonin 1 mg chew Take by mouth. Pbxwgra-Drdibubcsoovk-Vezniney (EXCEDRIN) 250-250-65 mg per tablet Take 1 [...] as needed for worsening/no improvement. Viola Phelps APRN.[facility] 07-28-2024 History of Present illness Narrative This [...] melatonin 1 mg chew Take by mouth. Qumqkpj-Jvguwhcyuacpg-Cbuaaxsz (EXCEDRIN) 250-250-65 mg per tablet Take 1 [...] as needed for worsening/no improvement. Viola Phelps APRN.STONE DECORATOR documented in this encounter [facility] 07-15-2024 Telephone encounter Note Patient has been [...] found Please advise. Thank you. Neli Tanner. [facility] 07-15-2024 Miscellaneous Notes Patient has been identified [...] you. Neli Tanner. documented in this encounter [facility] 06-10-2024 Telephone encounter Note See TE on 06/05/24. Pradeep Anegl LPN [facility] 06-10-2024 Miscellaneous Notes See TE on 06/05/24. Pradeep Angel LPN See 06/05/24 encounter --it looks like he was discussing with neuro. Since he is following with neuro, I would suspect referral should be from them. Viola Phelps APRN.STONE DECORATOR See additional message that was also sent to neuro. He was contacted through [facility] and was concerned regarding travel to [facility]. Should this referral be coming from us or neuro? Pt called in stating he has Parkinsons and is requesting Gene therapy [facility] just need a referral. Please advise. Thank you documented in this encounter [facility] 06-10-2024 Telephone encounter Note See 06/05/24 encounter --it looks like he was discussing with neuro. Since he is following with neuro, I would suspect referral should be from them. Viola Phelps APRN.STONE DECORATOR [facility] 06-10-2024 Telephone encounter Note See additional message that was also sent to neuro. [facility] 06-10-2024 Telephone encounter Note He was contacted through [facility] and was concerned regarding travel to [facility]. Should this referral be coming from us or neuro? [facility] 06-10-2024 Telephone encounter Note Pt called in stating he has Parkinsons and is requesting Gene therapy he is [facility] to go [facility] they just need a referral. Please advise. Thank you [facility] 05-05-2024 Telephone encounter Note LVM regarding PDGene study. Ellie Cortes, Toy Stuffer [facility] Work Phone: 05-05-2024 Miscellaneous Notes LVM regarding PDGene study. Ellie Cortes Toy Stuffer documented in this encounter [facility] 04-17-2024 Telephone encounter Note Summary: [facility] [id number] Tele-DIRECTOR DANCE Attempted to contact the patient regarding Tele-DIRECTOR DANCE study. LVM [facility] 04-17-2024 Miscellaneous Notes Summary: [facility] IR[facility] [id number] Tele-DIRECTOR DANCE Attempted to contact the patient regarding Tele-DIRECTOR DANCE study. LVM documented in this encounter [facility] 04-15-2024 Telephone encounter Note Received a call from Nava with questions about possible genetic treatments/therapies for Parkinson's disease. Discussed that I am not a clinical provider, but that I will send his question over to our clinical team to get an answer to his question and give him a call back. He understood and thanked me for the help. Serenity Baer Genetic Counselor Assembler Dielectric Heater [facility] 04-15-2024 Miscellaneous Notes Received a call from Nava with questions about possible genetic treatments/therapies for Parkinson's disease. Discussed that I am not a clinical provider, but that I will send his question over to our clinical team to get an answer to his question and give him a call back. He understood and thanked me for the help. Serenity Baer Genetic Counselor Assembler Dielectric Heater documented in this encounter [facility] 04-10-2024 Telephone encounter Note TC to pt, left detailed message with results/provider response on secure identified voicemail. Pt only to return call to office /c any questions or concerns. Pradeep Angel LPN [facility] 04-10-2024 Miscellaneous Notes TC to pt, left [...] sure. Advised pt that part of the [facility] lab is testing (Glucose) and if the number is normal usually there is no need to do further testing like a A1C. Pt reports he does not care if his number is in the normal range he wants the advanced test done. Please review and advise. Shahla Boss LPN documented in this encounter [facility] 04-10-2024 Telephone encounter Note TC to lab client services, they will add on Folate and Vit B12. Pradeep Angel LPN [facility] 04-10-2024 Telephone encounter Note Can please let patient know that I received some of his test results. His A1C was within normal. There is no diabetes. His prostate enzyme crept up a little bit, but is still in the age corrected normal range. See additional directions in [place] earlier in this encounter. Viola Phelps APRN.STONE DECORATOR [facility] 04-09-2024 Telephone encounter Note Unable to add B12 and Folate to labs already collected. Pt will need to come back to lab to get those drawn. Noelle Gruber MA, [facility] 04-09-2024 Telephone encounter Note Please see if the lab can check a B12 and folate off of the blood work that was already sent. [facility] Work Phone: 04-09-2024 Telephone encounter Note Lab was added on. Chary Mtz LPN [facility] 04-08-2024 Telephone encounter Note A1C added -- can we please check with lab if A1C can be added to labs already drawn. Viola Phelps APRN.JEZ [facility] 04-07-2024 Telephone encounter Note OV: 04/06/24 Pt reports he had labs done yesterday but has been thinking he needs his sugar tested. 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 Advised pt that part of the [facility] lab is testing (Glucose) and if the number is normal usually there is no need to do further testing like a A1C. Pt reports he does not care if his number is in the normal range he wants the advanced test done. Please review and advise. Shahla Boss LPN [facility] 04-06-2024 Instructions Viola Phelps APRN.JEZ - 04/06/2024 3:49 PM EDT Get labwork. Check with the [employer] customer service re: coverage for the heart monitor. Schedule echocardiogram. Schedule aorta ultrasound. documented in this encounter [facility] 04-06-2024 Note HNO ID: [id number] Author: VIOLA PHELPS APRN.JEZ Service: ? Author [...] melatonin 1 mg chew Take by mouth. Wdozluc-Zidbwwezqcgxy-Xvcywins (EXCEDRIN) 250-250-65 mg per tablet Take 1 [...] Will get echo. Patient with check with [employer] customer service and let us know if [...] as needed for worsening/no improvement. Viola Phelps APRN.[facility] 04-06-2024 History of Present illness Narrative This [...] melatonin 1 mg chew Take by mouth. Fylwpnb-Wfrruliocsvnm-Djswqqln (EXCEDRIN) 250-250-65 mg per tablet Take 1 [...] Will get echo. Patient with check with [employer] customer service and let us know if [...] as needed for worsening/no improvement. Viola Phelps APRN.STONE DECORATOR documented in this encounter [facility] 03-12-2024 Telephone encounter Note Summary: Research Patient called and left voice mail interested in research. Returned call and left voice mail. [facility] Work Phone: 03-12-2024 Miscellaneous Notes Summary: Research Patient called and left voice mail interested in research. Returned call and left voice mail. documented in this encounter [facility] 01-22-2024 Telephone encounter Note Patient was a no show for his appointment today, 01/21, with Rishabh Aldridge. HALINA Goetz [facility] 01-22-2024 Miscellaneous Notes Patient was a no [...] update. Thank you. documented in this encounter [facility] 01-22-2024 Telephone encounter Note TC no answer. Left VM to return call. HALINA Goetz [facility] 01-21-2024 Telephone encounter Note Summary: Research Patient reached out interested in research trials (specifically stem cell). Called and left voicemail. [facility] Work Phone: 01-21-2024 Miscellaneous Notes Summary: Research Patient reached out interested in research trials (specifically stem cell). Called and left voicemail. documented in this encounter [facility] 01-21-2024 Telephone encounter Note TC to pt with no answer. Left VM to return call. We are unable to do telephone visits, if pt can not do a video visit. He can reschedule. Sarah Oconnor LPN [facility] 01-20-2024 Telephone encounter Note Patient reports he has upcoming appt with Kirstin Aldridge CNP this Saturday01/22/24. Patient states with his Parkinson's, it makes walking uncomfortable and he is asking if appt can be changed to a Phone Call appt? Pt unable to do virtual. Please call patient with update. Thank you. [facility] 01-09-2024 Miscellaneous Notes I will reach out to [employer] regarding any such programs. Salvador Vargas MD Patient asking if Dr. Vargas is aware of any [facility] Stem Cell Programs for treatment of Parkinson's? If so, asking how he may be able get more information about this? Please advise patient. Thank you. documented in this encounter [facility] 01-08-2024 Miscellaneous Notes Patient notified. Pattie Balderrama RN Left message for patient to return call. Destiny Escamilla Ma I am not informed regarding use of stems cell injections for Parkinson's. He could ask Dr. Vargas. Thanks, Lazarus Abraham PA-C Patient calls and states that at last appointment provider had mentioned stem cell treatment for Parkinson's. Patient asking if provider knows if [facility] does this? Please review and advise, Janna Martinez RN documented in this encounter [facility] 01-02-2024 Miscellaneous Notes Sw spoke with patient and he notes needing assistance with light chores around the house. 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 Sw notes [facility] and [facility] as a few options for home career representative agencies in the community. Sw will mail [facility] Resource Guide along with [facility], and [facility] information to patient home. Patient notes that he will take a look at information and then reach out to home career representative agencies to discuss cost and availability. [place] received message from patient returning Sw call. Sw called patient back and left message that Sw will try call another time. M[place]inley left message for patient to return call to discuss community social service/home care/[facility] care needs. documented in this encounter [facility] 12-30-2023 History of Present illness Narrative 78 year old male with c/o 4 week follow up from 12/02/2023 Started on gabapentin 100mg three times a day States made him feel worse increase pain and dizziness and instability after a few days even though we discussed loading and initial side effects. 11/18/[address] Eddi Larson, spine with [facility] 10/25/2023 MRI spine lumbar without [...] melatonin 1 mg chew Take by mouth. Zbdgftl-Dkaughhmcdylx-Ugczxbbu (EXCEDRIN) 250-250-65 mg per tablet Take 1 [...] Basilio Abraham PA-C documented in this encounter [facility] 12-02-2023 Instructions Basilio Abraham PA-C - 12/02/2023 [...] Refresh eye drops documented in this encounter [facility] 12-02-2023 History of Present illness Narrative 78 year old male with c/o here for follow up Parkinsonian features (primary encounter diagnosis) Unstable gait Generalized weakness Myalgias Fasciculations Chronic midline low back pain without sciatica Current medications: Carbidopa-levodopa 25-200mg 1/2 tab 4p-8p-12m Neurologist: Seeing Dr. Vargsa From his last notes: Patient with multiple [...] melatonin 1 mg chew Take by mouth. Csegqdv-Fcdebxxanackb-Uelesvoh (EXCEDRIN) 250-250-65 mg per tablet Take 1 [...] or sooner as needed. Discussed need for second time worker/ over sight/ emergency alert system- identifies his brother checks ins 30 minute visit Some of this note may have been copied and pasted for the purpose of history context and comparison and has been adjusted for changes in prior data. 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 States wears glasses when he [...] melatonin 1 mg chew Take by mouth. Vibytpu-Hdldwuvtypmkh-Hizzljdz (EXCEDRIN) 250-250-65 mg per tablet Take 1 [...] changes mind, he has never had a monitoring analyst and thus, would recommend event monitor to rule out arrhythmia. Also would recommend checking T3/T4, but pt declines at this time. 8. Blurred vision - ICD9: 368.8, ICD10: H53.8 Resolves if pt wears glasses. Recommended he do so. 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 Salvador Vargas MD I spent a total of 53 minutes on the date of the service which included preparing to see the patient, iqew-bz-uyyw patient care, completing clinical documentation, obtaining and/or reviewing separately obtained history, performing a medically appropriate examination, counseling and educating the patient/family/caregiver, ordering medications, tests, or procedures, and communicating results to the patient/family/caregiver. There is no data to display for this encounter documented in this encounter [facility] 07-19-2023 Miscellaneous Notes Left the patient a voice message to call the office to schedule an EMG test. documented in this encounter [facility] 06-11-2023 Miscellaneous Notes Left message for patient [...] Janna Martinez RN documented in this encounter [facility] 05-21-2023 History of Present illness Narrative 78 [...] melatonin 1 mg chew Take by mouth. Mwggufp-Srmpxpyrzgguh-Nrndgejw (EXCEDRIN) 250-250-65 mg per tablet Take 1 [...] involvement, possibly notifying [facility] for concerns. 45-minute appointment. Basilio Abraham PA-C documented in this encounter [facility] 03-28-2023 History of Present illness Narrative Radiology [...] 2023 2:33 PM documented in this encounter [facility] 03-18-2023 Discharge summary Note Date/Time March 18, 2023 3:37 pm [facility] [address] [place] [address]. [address] [place] [address] / REHABILITATION SERVICES DISCHARGE SUMMARY MR#: [id number] Acct: [id number] Name: NAVA HEALY Rep #: [id number] : 1945 77 From: Rebecca Leon Referring [...] please feel free to call me at [phone]. Thank you for the referral of thispatient. Sincerely, MARY Solis Balance/Gait/Functional tests - Balance/Special Test Scores Functional Gait Assessment Score: 19 % Disability: 36.6700 Lower Extremity Functional Score: 36 <Electronically signed by Rebecca Valadez MPT> 03/18/23 [id number] CC: HARI Abraham; Dr. Jordan Casas MD ~ Signed [facility] Work Phone: 1(362) 916-293006-01-2023 Instructions* Patient Instructions* Patsy Soto APRN.CNP - [...] MRI of the brain. [facility] History of Present illness Narrative* Patsy Soto APRN.CNP - 02/21/2023 1:45 PM EDT Images from the original note were not included. [facility] Neurologic Reading Follow-up Visit Follow-up note February 21, 2023 [...] they recently sent him for PT at [facility]. Will then see pain management in [...] melatonin 1 mg chew Take by mouth. Vshawvb-Oepgiacmhucpo-Ismjdhlx (EXCEDRIN) 250-250-65 mg per tablet Take 1 [...] which included preparing to see the patient, gwdc-cf-lxqb patient care, completing clinical documentation, obtaining and/or reviewing separately obtained history, performing a medically appropriate examination, counseling and educating the pat ient/family/caregiver, and ordering medications, tests, or procedures. [facility] Instructions* Patient Instructions* Patsy Soto APRN.JEZ - 12/27/2022 2:33 PM EDT Start Sinemet 1/2 tablet three times daily (breakfast, lunch, dinner time). After two weeks if no side effects increase to a full tablet three times daily. [facility] History of Present illness Narrative* Patsy Soto APRN.CNP - 12/27/2022 1:45 PM EDT Images from the original note were not included. [facility] Neurologic Reading Follow-up Visit Follow-up note December 27, 2022 [...] QHS and titrate up q3 days to faiha793hb TID). He will notify the office after [...] melatonin 1 mg chew Take by mouth. Nfxoxbz-Poxvpblqqegtr-Wldhrfaz (EXCEDRIN) 250-250-65 mg per tablet Take 1 [...] which included preparing to see the patient, gpzj-vx-jpnu patient care, completing clinical documentation, obtaining and/or reviewing separately obtained history, performing a medically appropriate examination, counseling and educating the pat ient/family/caregiver, and ordering medications, tests, or procedures. [facility] History of Present illness Narrative* Basilio Abraham [...] Parkinson's. He brought up articles from the [employer] identifying immunologic role. Brother who checked on [...] melatonin 1 mg chew Take by mouth. Mkxbyhs-Grjvxnngrzwfl-Hverwcuk (EXCEDRIN) 250-250-65 mg per tablet Take 1 [...] checked. Discussed [employer] testing but I have information technology project manager with it. - ADVANCE CARE PLAN DISCUSSION - IGA BLD - IGE BLD - IGG - IGM 2. Screening for prostate cancer - ICD9: V76.44, ICD10: Z12.5 - Counseled on healthy diet and regular exercise - Risks/benefits of prostate cancer screening discussed. screening PSA ordered - PSA/PROSTSPECAG BRANN Basilio Abraham PA-C documented in this encounterSy[facility] Center02-01-2023 Miscellaneous Notes* Telephone Encounter - Basilio Newton [...] healing. Please advise patient. documented in this encounterSycamore Medical Center12-01-2022 Miscellaneous Notes* Telephone Encounter - Christal Rhoades Pss - 08/23/2022 9:31 AM EST Left the patient multiple message to call the office or [phone]. The patient returned the call and he doesn't want to schedule an appointment at this time. documented in this encounterSycamore Medical Center11-23-2022 Miscellaneous Notes* Telephone Encounter - Pradeep Angel [...] to see Dr. Patton-an arthritis specialist at [facility]. If provider agreeable to place order, pt would like order faxed to Dr. Patton's office. Please call pt with update. Thank you. documented in this encounterSycamore Medical Center11-08-2022 Miscellaneous Notes* Telephone Encounter - Pradeep Angel LPN - 07/31/2022 9:14 AM EST Order faxed to [facility]. Pradeep Angel LPN * Telephone Encounter - Basilio Abraham PA-C - 07/30/2022 5:29 PM EST Telephone on 07/30/22 CONSULT TO PHYSICAL THERAPY The following approved medication requests have been transmitted electronically. Parkinsonian features (primary encounter diagnosis) Lazarus Pryor PA-C * Telephone Encounter - Pattie Lewis Pss - 07/30/2022 3:45 PM EST Patient is calling requesting an order for PT at [facility] specifically for parkinson's Rebecca Valadez is in charge of this program. documented in this encounterSycamore Medical Center10-14-2022 Miscellaneous Notes* Telephone Encounter - Basilio Abraham PA-C - 07/06/2022 5:52 PM EDT Get Medical Advice on 07/06/22 XR HAND GENERAL 3V PA/LAT/OBL LEFT XR WRIST GENERAL 3V PA/LAT/OBL LEFT Lazarus Abraham PA-C documented in this encounterSycamore Medical Center10-13-2022 History of Present illness Narrative* Radha Maciel [...] not included. [facility] General Today's Date: 07/05/2022 Last Visit: [...] Medications: Neurontin 100mg TID - no relief Kuye-qpj-uwyrfcw (OTC) Pain Meds: Excedrin - takes 2 [...] (Meloxicam) Opioids: Tylenol #3 and Vicodin or [place] (Hydrocodone) - no relief Muscle Relaxants: none [...] was advised that they will need a emt driver for after the procedure and that if no emt driver is available and on site at the [...] Referrals: No additional considerations at present Functional Tenriism: No changes-continue current regimen Depending on response [...] COLTEN [facility] documented in this encounterSycamore Medical Center09-23-2022 Miscellaneous Notes* Telephone Encounter - Basilio Newton RN - 06/15/2022 5:02 PM EDT Patient returned call and given provider's message below with verbalized understanding. Patient reports he plans to see a chiropractor for a couple of weeks and see how that goes, then may add PT. * Telephone Encounter - Destiny Escamilla Ma - 06/15/2022 1:40 PM EDT [...] Thanks, Lazarus Abraham PA-C documented in this encounterSycamore Medical Center09-22-2022 History of Present illness Narrative* Basilio Abraham PA-C - 06/14/2022 1:30 PM EDT 77 year old male with c/o states saw a information technology administrator who gave him a steroid salve. Got [...] melatonin 1 mg chew Take by mouth. Lkyjtdb-Gdczutkdnkgmz-Agvohdxm (EXCEDRIN) 250-250-65 mg per tablet Take 1 [...] THERAPY Basilio Abraham PA-C documented in this encounterSycamore Medical Center08-11-2022 NoteHNO ID: [id number] Author: Tammy Reyes MA Service: ? Author Type: Blueprint Machine Operator Type: Progress Notes Filed: 05/03/2022 10:43 AM [...] and suicidal ideas. The patient is not nervous/anxious.[facility]08-11-2022 Miscellaneous Notes* Telephone Encounter - Serena [...] COVID vaccine.) Serena Moreno documented in this encounterSycamore Medical Center08-11-2022 History of Present illness Narrative* Tammy Reyes [...] not included. [facility] General Today's Date: 05/03/2022 Last Visit: [...] Medications: Neurontin 100mg TID - no relief Kzrw-oux-ytytkkr (OTC) Pain Meds: Excedrin - takes 2 [...] (Meloxicam) Opioids: Tylenol #3 and Vicodin or [place] (Hydrocodone) - no relief Muscle Relaxants: none [...] was advised that they will need a emt driver for after the procedure and that if no emt driver is available and on site at the time of the procedure, the procedure will be cancelled. For any anticoagulants, the patient was advised on whether to continue or hold for this procedure. The patient expressed understanding and gave verbal consent to proceed. Medication(s): Continue Neurontin 100mg TID Additional Studies: Electrodiagnostic Study bilateral lower limb radiculopathy Referrals: No additional considerations at present Functional Tenriism: No changes-continue current regimen Depending on response [...] COLTEN [facility] documented in this encounterSycamore Medical Center08-11-2022 NoteHNO ID: [id number] Author: Shell Lewis MD Service: ? Author Type: Physician Type: Progress Notes Filed: 05/03/2022 10:43 AM Note Text: [facility] Today's Date: 05/03/2022 Last Visit: N/A Name: [...] Medications: Neurontin 100mg TID - no relief Vzrc-fcm-ovgbche (OTC) Pain Meds: Excedrin - takes 2 [...] (Meloxicam) Opioids: Tylenol #3 and Vicodin or [place] (Hydrocodone) - no relief Muscle Relaxants: none Topicals: none Other Prescription or OTC Pain Medications: Excedrin and Tylenol (Acetaminophen) Anti-depressants: None Non-Pain Meds (more content not included)...[facility] 03-08-2022 Instructions* Patient Instructions* Basilio Abraham PA-C - 03/08/2022 4:24 PM EDT [place]- You have mild to moderate foraminal stenosis multiple levels. Usually this is a davila management issue and you are schedule in [place] at the [facility] on [facility] 04/05/2022 with DIRECTOR DANCE Nikki Soto with Dr. Salvador Vargas neurologist. You have another consult with Dr. Shell Lewis pain management also at the [facility]. If you want to see a spine surgeon, Dr. Fabiano Peng at [facility], or Dr. Jimmy Mackenzie with [place] [facility]. I can send a consult to either of them. Meloxicam daily: This is less likely but can cause stomach symptoms including ulceration, bleeding,nausea, pain, and diarrhea. Make sure to take it with food. If you are known to have allergy to anti-inflamatories medications, or have known kidney disease, make sure we know this before you take the medication. documented in this encounterSycamore Medical Center06-16-2022 History of Present illness Narrative* Basilio Abraham PA-C - 03/08/2022 4:20 PM EDT 76 year old male with c/o here for follow up Has not completed consults to spine. Wants to stay in [place]. Offered Dr. Jimmy Mackenzie [place] [facility], Fabiano Peng [facility] Neuro intake 04/05/22 Pain management [...] EMPTY STOMACH FOR THYROID 90 tablet 3 Bjlnogf-Gxugtbefepkgu-Nyozbiho (EXCEDRIN) 250-250-65 mg per tablet Take 1 [...] stretch. Basilio Abraham PA-C documented in this encounterSycamore Medical Center05-19-2022 Miscellaneous Notes* Telephone Encounter - HA Levin - 02/08/2022 1:37 PM EDT Sw called and spoke with patient to clarify what type of home care assistance he needs. Patient reports he is in need of help with cooking, laundry, washing dishes, running the sweeper. Patient reports he is not in need of any help with personal care. Sw noted [facility] offer home care services for hourly cost. Sw will send patient that information. Sw and patient also discussed [facility] [employer] and patient states that he is open to referral to their agency to see about any resource help through [employer]. Sw will refer patient to [employer]. Sw will also mail patient [facility] Older Adult Resource Guide with listing of community social service and home care agency information. Will also include home delivered meal agency options. * Telephone Encounter - Basilio Abraham PA-C - 02/08/2022 1:[address] consult for assessment. Cale would be able help? He is a retired chiropractor, lives alone, significant decline in weight and activity. Thanks! Telephone on 02/07/22 [facility] ThanksLazarus PA-C * Telephone Encounter - Cielo Tavarez RN - 02/07/2022 2:55 PM EDT Pt called in and reports that he had talked with provider about getting HH to help around the house. Pt would like provider to help him get a referral for this. Please call and advise. documented in this encounterSycamore Medical Center05-17-2022 Miscellaneous Notes* Telephone Encounter - Saranya Piedra - 02/06/2022 12:54 PM EDT Called and LVM for patient to return call and schedule with Catrachita Mehta APRN.JEZ or at [facility]. * Telephone Encounter - Gail Franco - 02/06/2022 11:15 AM EDT Attempt #1 to contact patient to schedule with Lazarus Abraham. [facility]. * Telephone Encounter - Destiny Escamilla Ma - 02/06/2022 10:30 AM EDT Images from the original note were not included. Basilio Abraham PA-C P tr Trina Torre Please schedule f/u in next 4-6 weeks and consult to spine- we talked about it but I didn't place orders. Thanks, Lazarus Abraham PA-C documented in this encounterSycamore Medical Center05-16-2022 History of Present illness Narrative* Basilio Abraham [...] EMPTY STOMACH FOR THYROID 90 tablet 3 Flohfjw-Juoisdlpttezq-Djzrgten (EXCEDRIN) 250-250-65 mg per tablet Take 1 [...] CENTER Basilio Abraham PA-C documented in this encounterSycamore Medical Center03-23-2022 History of Present illness Narrative* Alona Leigh, [...] 13, 2021 2:37 PM documented in this encounterSycamore Medical Center06-28-2021 History of Present illness Narrative* Tonya Paige [...] 20, 2021 6:06 PM documented in this encounterSycamore Medical CenterEvaludelaware psychiatric [facility] note* Diagnosis Parkinsonian features- Primary Abnormal involuntary movements Underweight Hypothyroidism, acquired Unspecified hypothyroidism Lumbar foraminal stenosis Spinal stenosis, lumbar region, without neurogenic claudication Sacroiliac pain Disorders of sacrum documented in [facility] encounter [facility]* Diagnosis DDD (degenerative disc disease), lumbar- Primary Degeneration of lumbar or lumbosacral intervertebral disc Lumbar foraminal stenosis Spinal stenosis, lumbar region, without neurogenic claudication Underweight Parkinsonian features Abnormal involuntary movements [facility] Diagnosis DDD (degenerative disc disease), lumbar- Primary Degeneration of lumbar or lumbosacral intervertebral disc Lumbar foraminal stenosis Spinal stenosis, lumbar region, without neurogenic claudication Underweight Parkinsonian features Abnormal involuntary movements Levoscoliosis Other kyphoscoliosis and scoliosis [facility]* Diagnosis Acquired hypothyroidism Unspecified hypothyroidism [facility]* Diagnosis Lumbar spondylosis- Primary Lumbosacral spondylosis without myelopathy Spinal stenosis, lumbar region, without neurogenic claudication Lumbar radiculopathy Thoracic or lumbosacral neuritis or radiculitis, unspecified Meralgia paresthetica of right side Meralgia paresthetica Parkinsonian features- Primary Abnormal involuntary movements Lumbar pain Lumbago Unstable gait Abnormality of gait [facility]* Diagnosis Psoriasis- Primary Other psoriasis DDD (degenerative disc disease), lumbar Degeneration of lumbar or lumbosacral intervertebral disc Lumbar foraminal stenosis Spinal stenosis, lumbar region, without neurogenic claudication [facility]* Diagnosis Spinal stenosis, lumbar region, without neurogenic claudication- Primary Lumbar spondylosis Lumbosacral spondylosis without myelopathy Lumbar radiculopathy Thoracic or lumbosacral neuritis or radiculitis, unspecified Meralgia paresthetica of right side Meralgia paresthetica Primary osteoarthritis of both knees Primary localized osteoarthrosis, lower leg [facility]* Diagnosis Primary osteoarthritis of both knees Primary localized osteoarthrosis, lower leg [facility]* Diagnosis Left hand pain- Primary Pain in limb Left wrist pain Pain in joint, forearm [facility] Diagnosis Parkinsonian features- Primary Abnormal involuntary movements [facility]* Diagnosis Parkinsonian features- Primary Abnormal involuntary movements [facility]* Diagnosis Lumbar foraminal stenosis- Primary Spinal stenosis, lumbar region, without neurogenic claudication DDD (degenerative disc disease), lumbar Degeneration of lumbar or lumbosacral intervertebral disc [facility]* Diagnosis Onset Date Resolution Status Arthritis of carpometacarpal (CMC) joint of left thumb noneactive Osteoarthritis of carpometac arpal joint of left thumb acute [facility] Work Phone: Evaluation note* Diagnosis Parkinson's syndrome (HCC)- Primary Paralysis agitans Screening for prostate cancer Special screening for malignant neoplasm of prostate [facility]* Diagnosis Parkinsonian features- Primary Abnormal involuntary movements Lumbar pain Lumbago Unstable gait Abnormality of gait [facility]* Diagnosis Parkinsonian features- Primary Abnormal involuntary movements Lumbar pain Lumbago Unstable gait Abnormality of gait Transient cerebral ischemia, unspecified type Double vision Diplopia Vertigo Dizziness and giddiness documented in this encounter [facility] noteNo assessment information availableWSelect Medical [facility] [place] Work Phone: Evaluation note* Diagnosis Myalgia- Primary [...] (HCC) Paralysis agitans documented in this encounter [facility]* Diagnosis Screening for diabetes mellitus- Primary documented in this encounter [facility]* Diagnosis Transient cerebral ischemia, unspecified type documented in [facility]* Diagnosis Parkinsonian features- Primary Abnormal involuntary movements Unstable gait Abnormality of gait Generalized weakness Other malaise and fatigue Myalgias Fasciculation Abnormal involuntary movements Chronic midline low back pain without sciatica Lightheadedness Dizziness and giddiness Blurred vision Other specified visual disturbances [facility]* Diagnosis Onset Date Resolution Status Degenerative scoliosis acute Osteoporosis acute Parkinsons disease [facility] Work Phone: Evaluation note* Diagnosis Parkinsonian [...] mention of psychosis [facility]* Diagnosis 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 Acquired hypothyroidism Unspecified hypothyroidism Palpitations Restless legs Restless legs syndrome (RLS) Pruritus, unspecified Family hx of aortic aneurysm Family history of other cardiovascular diseases Screening for prostate cancer Special screening for malignant neoplasm of prostate documented in this encounter [facility]* Diagnosis Generalized weakness- Primary Other malaise and fatigue Abnormal finding of blood chemistry, unspecified documented [facility]* Diagnosis Acute midline low back pain with right-sided sciatica [facility]* Diagnosis Acquired hypothyroidism Unspecified hypothyroidism documented [facility] this [facility]* Diagnosis 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 Lumbar foraminal stenosis Spinal stenosis, lumbar region, without neurogenic claudication Encounter for immunization Need for other specified prophylactic vaccination against single bacterial disease documented [facility] this encounter [facility]* Diagnosis Nonrheumatic mitral valve regurgitation- Primary [facility]* Diagnosis Acquired hypothyroidism Unspecified hypothyroidism [facility]* Diagnosis Parkinson's disease without dyskinesia, unspecified whether manifestations fluctuate (HCC)- Primary Unstable gait Abnormality of gait Generalized weakness Other malaise and fatigue Myalgias Lightheadedness Dizziness and giddiness Lumbar pain Lumbago Parkinsonian features Abnormal involuntary movements [facility]* Diagnosis Acquired hypothyroidism- Primary Unspecified hypothyroidism Vitamin D deficiency Unspecified vitamin D deficiency Generalized weakness Other malaise and fatigue Other chronic pain Parkinson's disease with dyskinesia and fluctuating manifestations (HCC) Weight loss Loss of weight [facility]* Diagnosis Weight loss- Primary Loss of weight Other chronic pain Drooling Disturbance of salivary secretion documented in this encounter [facility]* Diagnosis Chronic pain syndrome- Primary Weight loss Loss of weight Lumbar foraminal stenosis Spinal stenosis, lumbar region, without neurogenic claudication documented in this encounter [facility]* Diagnosis Parkinsonian features- Primary Abnormal involuntary movements Chronic pain syndrome Lumbar foraminal stenosis Spinal stenosis, lumbar region, without neurogenic claudication Weight loss Loss of weight documented in this encounter [facility] for referral (narrative)* Diagnostic Procedure Only (Routine) - Closed Specialty Diagnoses / Procedures Referred By Contac t Referred To Contact XR IMAGING Diagnoses Primary osteoarthritis of both knees Procedures XR KNEE GENERAL 4V AP BOTH/PA BOTH/LAT/MERC RIGHT RADIOLOGIC EXAM KNEE COMPLETE 4/MORE VIEWS Shell Lewis MD [address] [place] [address] Xr Imaging Referral ID Status Reason Start Date Expiration Date V isits Requested Visits Authorized [id number] Closed Auto-Generate d Referral 07/05/2022 08/04/2023 1 1 * Diagnostic Procedure Only (Routine) - Pending Review Specialty Diagnoses / Procedures Referred By Contac t Referred To Contact XR IMAGING Diagnoses Primary osteoarthritis of both knees Procedures XR KNEE GENERAL 4V AP BOTH/PA BOTH/LAT/MERC LEFT RADIOLOGIC EXAM KNEE COMPLETE 4/MORE VIEWS Shell Lewis MD [address] [place] [address] Xr Imaging Referral ID Status Reason Start Date Expiration Date Visits Requested Visits Authorized [id number] Pending Review Auto-Generat ed Referral 08/04/2023 1 1 [facility] for referral (narrative)* Diagnostic Procedure Only (Routine) - Closed Specialty Diagnoses / Procedures Referred By Contac t Referred To Contact XR IMAGING Diagnoses Primary osteoarthritis of both knees Procedures XR KNEE GENERAL 4V AP BOTH/PA BOTH/LAT/MERC RIGHT RADIOLOGIC EXAM KNEE COMPLETE 4/MORE VIEWS Shell Lewis MD [address] [place] [address] Xr Imaging Referral ID Status Reason Start Date Expiration Date V isits Requested Visits Authorized [id number] Closed Auto-Generate d Referral 07/05/2022 08/04/2023 1 1 [facility] for referral (narrative)* Diagnostic Procedure Only (Routine) - Pending Review Specialty Diagnoses / Procedures Referred By Contac t Referred To Contact XR IMAGING Diagnoses Left hand pain Left wrist pain Procedures XR WRIST GENERAL 3V PA/LAT/OBL LEFT RADEX WRIST COMPLETE MINIMUM 3 VIEWS Basilio Abraham PA-C [address] [place] [address] Xr Imaging Referral ID Status Reason Start Date Expiration Date Visits Requested Visits Authorized [id number] Pending Review Auto-Generat ed Referral 2 08/05/2023 1 1 * Diagnostic Procedure Only (Routine) - Pending Review Specialty Diagnoses / Procedures Referred By Contac t Referred To Contact XR IMAGING Diagnoses Left hand pain Left wrist pain Procedures XR HAND GENERAL 3V PA/LAT/OBL LEFT RADEX HAND MINIMUM 3 VIEWS Basilio Abraham PA-C [address] [place] [address] Xr Imaging Referral ID Status Reason Start Date Expiration Date Visits Requested Visits Authorized [id number] Pending Review Auto-Generat ed Referral 2 08/05/2023 1 1 [facility] for referral (narrative)* Diagnostic Procedure Only (Routine) - Authorized Specialty Diagnoses / Procedures Referred By Contac t Referred To Contact US IMAGING Diagnoses Family hx of aortic aneurysm Procedures US SCREENING FOR [facility] US ABDOMINAL AORTA REAL TIME SCREEN STUDY [facility] Viola Phelps, JENY [address] [place] [address] [place] [address] Referral ID Status Reason Start Date Expiration Date Visits Requested Visits Authorized [id number] Authorized Auto-Generat ed Referral 04/06/2024 05/06/2025 1 1 * Outpatient Procedure (Routine) - Authorized Specialty Diagnoses / Procedures Referred By Contac t Referred To Contact [facility] Diagnoses Palpitations Procedures ECHO ECHO TTHRC R-T 2D W/WOM-MODE COMPL SPEC&COLR D Viola Phelps APRN.STONE DECORATOR [address] [place] [address] [facility] [address] [address] Referral ID Status Reason Start Date Expiration Date Visits Requested Visits Authorized [id number] Authorized Auto-Generat ed Referral 04/06/2024 04/06/2025 1 1 * Outpatient Procedure (Routine) - New Request Specialty Diagnoses / Procedures Referred By Marieac t Referred To Contact [facility] Diagnoses Palpitations Procedures ECG COMPLETE ECG ROUTINE ECG W/LEAST 12 LDS W/I&R Viola Phelps APRN.STONE DECORATOR [address] [place] [address] [facility] [address] [address] Referral ID Status Reason Start Date Expiration Date Visits Requested Visits Authorized [id number] New Request Auto-Generat ed Referral 04/06/2024 04/06/2025 1 1 [facility] for visit Narrative* Diagnostic Procedure Only (Routine) - Closed Specialty Diagnoses / Procedures Referred By Contac t Referred To Contact XR IMAGING Diagnoses Primary osteoarthritis of both knees Procedures XR KNEE GENERAL 4V AP BOTH/PA BOTH/LAT/MERC RIGHT RADIOLOGIC EXAM KNEE COMPLETE 4/MORE VIEWS Shell Lewis [place] [address] Xr Imaging Referral ID Status Reason Start Date Expiration Date V isits Requested Visits Authorized [id number] Closed Auto-Generate d Referral 07/05/2022 08/04/2023 1 1 [facility] Summary Purpose Family History No Family History Records Found Relationship Condition Age at Onset Recorded Date/T julia Not Specified Arthritis Unknown Malignant neoplasm Unknown Advance Directives No Advanced Directives Records FoundNo Advanced Directives Records FoundNo Advanced Directives Records FoundNo Advanced Directives Records Found Reason for Referral Specialty Diagnoses / Procedures Referred By Contac t Referred To Contact Spine Reading Diagnoses Lumbar foraminal stenosis Sacroiliac pain Procedures CONSULT TO [facility] OFFICE/OUTPATIENT [facility] 60-74 MINUTES Basilio Abraham PA-C [address] [place] [address] Referral ID Status Reason Start Date Expiration Date Visits Requested Visits Authorized [id number] Authorized PCP Requested Referral 02/05/2022 02/05/2023 1 1 Specialty Diagnoses / Procedures Referred By Contac t Referred To Contact Neurology Diagnoses Parkinsonian features Procedures CONSULT TO NEUROLOGY OFFICE/OUTPATIENT [facility] 60-74 MINUTES Basilio Abraham PA-C [address] [place] [address] Referral ID Status Reason Start Date Expiration Date Visits Requested Visits Authorized [id number] Authorized PCP Requested Referral 02/05/2022 02/05/2023 1 1 Specialty Diagnoses / Procedures Referred By Contac t Referred To Contact [facility] Diagnoses DDD (degenerative disc disease), lumbar Lumbar foraminal stenosis Procedures CONSULT TO PHYSICAL THERAPY PHYSICAL THERAPY EVALUATION HIGH COMPLEX 45 MINS Basilio Abraham PA-C [address] [place] [address] [facility] [address] [place] [address] Referral ID Status Reason Start Date Expiration Date Visits Requested Visits Authorized [id number] Authorized PCP Requested Referral Auto-Generate d Referral 06/15/2022 06/15/2023 99 99 Specialty Diagnoses / Procedures Referred By Contac t Referred To Contact Dermatology Diagnoses Psoriasis Procedures CONSULT TO DERMATOLOGY Basilio Abraham PA-C [address] [place] [address] Referral ID Status Reason Start Date Expiration Date Visits Requested Visits Authorized [id number] Ref Not Required PCP Requested Referral 06/14/2022 06/14/2023 1 1 Specialty Diagnoses / Procedures Referred By Contac t Referred To Contact Neurology Diagnoses Parkinsonian features Procedures CONSULT TO NEUROLOGY OFFICE/OUTPATIENT [facility] 60-74 MINUTES Benton Bhardwaj DRILLER'S ASSISTANT.STONE DECORATOR [id number] [place] [address] Referral ID Status Reason Start Date Expiration Date Visits Requested Visits Authorized [id number] Authorized PCP Requested Referral 07/25/2022 07/25/2023 1 1 Specialty Diagnoses / Procedures Referred By Contac t Referred To Contact [facility] Diagnoses Parkinsonian features Procedures CONSULT TO PHYSICAL THERAPY PHYSICAL THERAPY EVALUATION HIGH COMPLEX 45 MINS Basilio Abraham PA-C [address] [place] [address] [facility] [address] [place] [address] Referral ID Status Reason Start Date Expiration Date Visits Requested Visits Authorized [id number] Authorized PCP Requested Referral Auto-Generate d Referral 07/30/2022 07/30/2023 99 99 Specialty Diagnoses / Procedures Referred By Contac t Referred To Contact Rheumatology Diagnoses Lumbar foraminal stenosis DDD (degenerative disc disease), lumbar Procedures CONSULT TO RHEUM/IMMUN DISEASE OFFICE/OUTPATIENT [facility] 60-74 MINUTES Basilio Abraham PA-C [address] [place] [address] Referral ID Status Reason Start Date Expiration Date Visits Requested Visits Authorized [id number] Authorized PCP Requested Referral 08/14/2023 1 1 Specialty Diagnoses / Procedures Referred By Contac t Referred To Contact [facility] Diagnoses Transient cerebral ischemia, unspecified type Procedures MRI BRAIN WO IVCON MRI BRAIN BRAIN STEM W/O CONTRAST MATERIAL Patsy Soto, DRILLER'S ASSISTANT.STONE DECORATOR [address] [place] [address] [facility] Referral ID Status Reason Start Date Expiration Date Visits Requested Visits Authorized [id number] Authorized Auto-Generat ed Referral 02/21/2023 03/22/2024 1 1 Specialty Diagnoses / Procedures Referred By Contac t Referred To Contact [facility] Diagnoses Transient cerebral ischemia, unspecified type Procedures MRI BRAIN WO IVCON MRI BRAIN BRAIN STEM W/O CONTRAST MATERIAL Patsy Soto, DRILLER'S ASSISTANT.STONE DECORATOR [address] [place] [address] [place] [address] Referral ID Status Reason Start Date Expiration Date V isits Requested Visits Authorized [id number] Closed Auto-Generate d Referral 02/21/2023 03/22/2024 1 1 Specialty Diagnoses / Procedures Referred By Contac t Referred To Contact Ophthalmology Diagnoses Visual changes Procedures CONSULT TO OPHTHALMOLOGY OFFICE/OUTPATIENT [facility] 60 MINUTES Basilio Abraham PA-C [address] [place] [address] Referral ID Status Reason Start Date Expiration Date Visits Requested Visits Authorized [id number] Authorized PCP Requested Referral 12/02/2023 12/01/2024 1 1 Specialty Diagnoses / Procedures Referred By Contac t Referred To Contact Podiatry Diagnoses Involution of toenail Procedures CONSULT TO PODIATRY OFFICE/OUTPATIENT [facility] 60 MINUTES Basilio Abraham PA-C [address] [place] [address] Referral ID Status Reason Start Date Expiration Date Visits Requested Visits Authorized [id number] Authorized PCP Requested Referral 12/02/2023 12/01/2024 1 1 Specialty Diagnoses / Procedures Referred By Contac t Referred To Contact [facility] Diagnoses Lumbar foraminal stenosis Procedures CONSULT TO [facility] OFFICE/OUTPATIENT [facility] 60 MINUTES Viola Phelps, DRILLER'S ASSISTANT.STONE DECORATOR [address] [place] [address] Referral ID Status Reason Start Date Expiration Date Visits Requested Visits Authorized [id number] Authorized PCP Requested Referral 07/28/2024 07/28/2025 1 [...] section and content) DATE CREATED AUTHOR 03/30/2021 [facility] DATE CREATED AUTHOR AUTHOR'S ORGANIZ ATION 05/04/2022 [facility] DATE CREATED AUTHOR AUTHOR'S ORGANIZ ATION 06/13/2024 [facility] DATE CREATED AUTHOR AUTHOR'S ORGANIZ ATION 02/23/2025 [facility] Source Comments (unrecognize d section and content) In the event this informatio n is protected by the Federal Confidentiality of Alcohol and Drug Abuse Patient Records regulations: The Federal rules restrict any use of the information to criminally investigate or prosecute any alcohol or drug abuse patient.[facility] the event this information is protected by the Federal Confidentiality of Alcohol and Drug Abuse Patient Records regulations: The Federal rules restrict any use of the information to criminally investigate or prosecute any alcohol or drug abuse patient.[facility] CenterIn the event this information is protected by the Federal Confidentiality of Alcohol and Drug Abuse Patient Records regulations: The Federal rules restrict any use of the information to criminally investigate or prosecute any alcohol or drug abuse patient.[facility] CenterIn the event this information is protected by the Federal Confidentiality of Alcohol and Drug Abuse Patient Records regulations: The Federal rules restrict any use of the information to criminally investigate or prosecute any alcohol or drug abuse patient.[facility] CenterIn the event this information is protected by the Federal Confidentiality of Alcohol and Drug Abuse Patient Records regulations: The Federal rules restrict any use of the information to criminally investigate or prosecute any alcohol or drug abuse patient.[facility] Center[facility] the event this information is protected by the Federal Confidentiality of Alcohol and Drug Abuse Patient Records regulations: The Federal rules restrict any use of the information to criminally investigate or prosecute any alcohol or drug abuse patient.[facility] CenterIn the event this information is protected by the Federal Confidentiality of Alcohol and Drug Abuse Patient Records regulations: The Federal rules restrict any use of the information to criminally investigate or prosecute any alcohol or drug abuse patient.[facility] CenterIn the event this information is protected by the Federal Confidentiality of Alcohol and Drug Abuse Patient Records regulations: The Federal rules restrict any use of the information to criminally investigate or prosecute any alcohol or drug abuse patient.[facility] CenterIn the event this information is protected by the Federal Confidentiality of Alcohol and Drug Abuse Patient Records regulations: The Federal rules restrict any use of the information to criminally investigate or prosecute any alcohol or drug abuse patient.[facility] CenterIn the event this information is protected by the Federal Confidentiality of Alcohol and Drug Abuse Patient Records regulations: The Federal rules restrict any use of the information to criminally investigate or prosecute any alcohol or drug abuse patient.[facility] CenterIn the event this information is protected by the Federal Confidentiality of Alcohol and Drug Abuse Patient Records regulations: The Federal rules restrict any use of the information to criminally investigate or prosecute any alcohol or drug abuse patient.[facility] CenterIn the event this information is protected by the Federal Confidentiality of Alcohol and Drug Abuse Patient Records regulations: The Federal rules restrict any use of the information to criminally investigate or prosecute any alcohol or drug abuse patient.[facility] CenterIn the event this information is protected by the Federal Confidentiality of Alcohol and Drug Abuse Patient Records regulations: The Federal rules restrict any use of the information to criminally investigate or prosecute any alcohol or drug abuse patient.[facility] CenterIn the event this information is protected by the Federal Confidentiality of Alcohol and Drug Abuse Patient Records regulations: The Federal rules restrict any use of the information to criminally investigate or prosecute any alcohol or drug abuse patient.[facility] CenterIn the event this information is protected by the Federal Confidentiality of Alcohol and Drug Abuse Patient Records regulations: The Federal rules restrict any use of the information to criminally investigate or prosecute any alcohol or drug abuse patient.[facility] CenterIn the event this information is protected by the Federal Confidentiality of Alcohol and Drug Abuse Patient Records regulations: The Federal rules restrict any use of the information to criminally investigate or prosecute any alcohol or drug abuse patient.[facility] CenterIn the event this information is protected by the Federal Confidentiality of Alcohol and Drug Abuse Patient Records regulations: The Federal rules restrict any use of the information to criminally investigate or prosecute any alcohol or drug abuse patient.[facility] CenterIn the event this information is protected by the Federal Confidentiality of Alcohol and Drug Abuse Patient Records regulations: The Federal rules restrict any use of the information to criminally investigate or prosecute any alcohol or drug abuse patient.[facility] CenterIn the event this information is protected by the Federal Confidentiality of Alcohol and Drug Abuse Patient Records regulations: The Federal rules restrict any use of the information to criminally investigate or prosecute any alcohol or drug abuse patient.[facility] CenterIn the event this information is protected by the Federal Confidentiality of Alcohol and Drug Abuse Patient Records regulations: The Federal rules restrict any use of the information to criminally investigate or prosecute any alcohol or drug abuse patient.[facility] CenterIn the event this information is protected by the Federal Confidentiality of Alcohol and Drug Abuse Patient Records regulations: The Federal rules restrict any use of the information to criminally investigate or prosecute any alcohol or drug abuse patient.[facility] CenterIn the event this information is protected by the Federal Confidentiality of Alcohol and Drug Abuse Patient Records regulations: The Federal rules restrict any use of the information to criminally investigate or prosecute any alcohol or drug abuse patient.[facility] CenterIn the event this information is protected by the Federal Confidentiality of Alcohol and Drug Abuse Patient Records regulations: The Federal rules restrict any use of the information to criminally investigate or prosecute any alcohol or drug abuse patient.[facility] CenterIn the event this information is protected by the Federal Confidentiality of Alcohol and Drug Abuse Patient Records regulations: The Federal rules restrict any use of the information to criminally investigate or prosecute any alcohol or drug abuse patient.[facility] CenterIn the event this information is protected by the Federal Confidentiality of Alcohol and Drug Abuse Patient Records regulations: The Federal rules restrict any use of the information to criminally investigate or prosecute any alcohol or drug abuse patient.[facility] CenterIn the event this information is protected by the Federal Confidentiality of Alcohol and Drug Abuse Patient Records regulations: The Federal rules restrict any use of the information to criminally investigate or prosecute any alcohol or drug abuse patient.[facility] CenterIn the event this information is protected by the Federal Confidentiality of Alcohol and Drug Abuse Patient Records regulations: The Federal rules restrict any use of the information to criminally investigate or prosecute any alcohol or drug abuse patient.[facility] CenterIn the event this information is protected by the Federal Confidentiality of Alcohol and Drug Abuse Patient Records regulations: The Federal rules restrict any use of the information to criminally investigate or prosecute any alcohol or drug abuse patient.[facility] CenterIn the event this information is protected by the Federal Confidentiality of Alcohol and Drug Abuse Patient Records regulations: The Federal rules restrict any use of the information to criminally investigate or prosecute any alcohol or drug abuse patient.[facility] CenterIn the event this information is protected by the Federal Confidentiality of Alcohol and Drug Abuse Patient Records regulations: The Federal rules restrict any use of the information to criminally investigate or prosecute any alcohol or drug abuse patient.[facility] CenterIn the event this information is protected by the Federal Confidentiality of Alcohol and Drug Abuse Patient Records regulations: The Federal rules restrict any use of the information to criminally investigate or prosecute any alcohol or drug abuse patient.[facility] CenterIn the event this information is protected by the Federal Confidentiality of Alcohol and Drug Abuse Patient Records regulations: The Federal rules restrict any use of the information to criminally investigate or prosecute any alcohol or drug abuse patient.[facility] CenterIn the event this information is protected by the Federal Confidentiality of Alcohol and Drug Abuse Patient Records regulations: The Federal rules restrict any use of the information to criminally investigate or prosecute any alcohol or drug abuse patient.[facility] CenterIn the event this information is protected by the Federal Confidentiality of Alcohol and Drug Abuse Patient Records regulations: The Federal rules restrict any use of the information to criminally investigate or prosecute any alcohol or drug abuse patient.[facility] CenterIn the event this information is protected by the Federal Confidentiality of Alcohol and Drug Abuse Patient Records regulations: The Federal rules restrict any use of the information to criminally investigate or prosecute any alcohol or drug abuse patient.[facility] CenterIn the event this information is protected by the Federal Confidentiality of Alcohol and Drug Abuse Patient Records regulations: The Federal rules restrict any use of the information to criminally investigate or prosecute any alcohol or drug abuse patient.[facility] CenterIn the event this information is protected by the Federal Confidentiality of Alcohol and Drug Abuse Patient Records regulations: The Federal rules restrict any use of the information to criminally investigate or prosecute any alcohol or drug abuse patient.[facility] CenterIn the event this information is protected by the Federal Confidentiality of Alcohol and Drug Abuse Patient Records regulations: The Federal rules restrict any use of the information to criminally investigate or prosecute any alcohol or drug abuse patient.[facility] CenterIn the event this information is protected by the Federal Confidentiality of Alcohol and Drug Abuse Patient Records regulations: The Federal rules restrict any use of the information to criminally investigate or prosecute any alcohol or drug abuse patient.[facility] CenterIn the event this information is protected by the Federal Confidentiality of Alcohol and Drug Abuse Patient Records regulations: The Federal rules restrict any use of the information to criminally investigate or prosecute any alcohol or drug abuse patient.[facility] CenterIn the event this information is protected by the Federal Confidentiality of Alcohol and Drug Abuse Patient Records regulations: The Federal rules restrict any use of the information to criminally investigate or prosecute any alcohol or drug abuse patient.[facility] CenterIn the event this information is protected by the Federal Confidentiality of Alcohol and Drug Abuse Patient Records regulations: The Federal rules restrict any use of the information to criminally investigate or prosecute any alcohol or drug abuse patient.[facility] the event this information is protected by the Federal Confidentiality of Alcohol and Drug Abuse Patient Records regulations: The Federal rules restrict any use of the information to criminally investigate or prosecute any alcohol or drug abuse patient.[facility] CenterIn the event this information is protected by the Federal Confidentiality of Alcohol and Drug Abuse Patient Records regulations: The Federal rules restrict any use of the information to criminally investigate or prosecute any alcohol or drug abuse patient.[facility] CenterIn the event this information is protected by the Federal Confidentiality of Alcohol and Drug Abuse Patient Records regulations: The Federal rules restrict any use of the information to criminally investigate or prosecute any alcohol or drug abuse patient.[facility] CenterIn the event this information is protected by the Federal Confidentiality of Alcohol and Drug Abuse Patient Records regulations: The Federal rules restrict any use of the information to criminally investigate or prosecute any alcohol or drug abuse patient.[facility] CenterIn the event this information is protected by the Federal Confidentiality of Alcohol and Drug Abuse Patient Records regulations: The Federal rules restrict any use of the information to criminally investigate or prosecute any alcohol or drug abuse patient.[facility] CenterIn the event this information is protected by the Federal Confidentiality of Alcohol and Drug Abuse Patient Records regulations: The Federal rules restrict any use of the information to criminally investigate or prosecute any alcohol or drug abuse patient.[facility] CenterIn the event this information is protected by the Federal Confidentiality of Alcohol and Drug Abuse Patient Records regulations: The Federal rules restrict any use of the information to criminally investigate or prosecute any alcohol or drug abuse patient.[facility] CenterIn the event this information is protected by the Federal Confidentiality of Alcohol and Drug Abuse Patient Records regulations: The Federal rules restrict any use of the information to criminally investigate or prosecute any alcohol or drug abuse patient.[facility] CenterIn the event this information is protected by the Federal Confidentiality of Alcohol and Drug Abuse Patient Records regulations: The Federal rules restrict any use of the information to criminally investigate or prosecute any alcohol or drug abuse patient.[facility]In the event this information is protected by the Federal Confidentiality of Alcohol and Drug Abuse Patient Records regulations: The Federal rules restrict any use of the information to criminally investigate or prosecute any alcohol or drug abuse patient.[facility] CenterIn the event this information is protected by the Federal Confidentiality of Alcohol and Drug Abuse Patient Records regulations: The Federal rules restrict any use of the information to criminally investigate or prosecute any alcohol or drug abuse patient.[facility] CenterIn the event this information is protected by the Federal Confidentiality of Alcohol and Drug Abuse Patient Records regulations: The Federal rules restrict any use of the information to criminally investigate or prosecute any alcohol or drug abuse patient.[facility] CenterIn the event this information is protected by the Federal Confidentiality of Alcohol and Drug Abuse Patient Records regulations: The Federal rules restrict any use of the information to criminally investigate or prosecute any alcohol or drug abuse patient.[facility] CenterIn the event this information is protected by the Federal Confidentiality of Alcohol and Drug Abuse Patient Records regulations: The Federal rules restrict any use of the information to criminally investigate or prosecute any alcohol or drug abuse patient.[facility] CenterIn the event this information is protected by the Federal Confidentiality of Alcohol and Drug Abuse Patient Records regulations: The Federal rules restrict any use of the information to criminally investigate or prosecute any alcohol or drug abuse patient.[facility] CenterIn the event this information is protected by the Federal Confidentiality of Alcohol and Drug Abuse Patient Records regulations: The Federal rules restrict any use of the information to criminally investigate or prosecute any alcohol or drug abuse patient.[facility] CenterIn the event this information is protected by the Federal Confidentiality of Alcohol and Drug Abuse Patient Records regulations: The Federal rules restrict any use of the information to criminally investigate or prosecute any alcohol or drug abuse patient.[facility] CenterIn the event this information is protected by the Federal Confidentiality of Alcohol and Drug Abuse Patient Records regulations: The Federal rules restrict any use of the information to criminally investigate or prosecute any alcohol or drug abuse patient.[facility] CenterIn the event this information is protected by the Federal Confidentiality of Alcohol and Drug Abuse Patient Records regulations: The Federal rules restrict any use of the information to criminally investigate or prosecute any alcohol or drug abuse patient.[facility] CenterIn the event this information is protected by the Federal Confidentiality of Alcohol and Drug Abuse Patient Records regulations: The Federal rules restrict any use of the information to criminally investigate or prosecute any alcohol or drug abuse patient.[facility] Care Teams (unrecognized sec tion and content) Dispatcher Radio Relationship Specialty Start Date End Date Basilio Abraham PA-C [address] [place] [address] PCP - General Family Practice 10/13/18 Dispatcher Radio Relationship Specialty Start Date End Date Basilio Abraham PA-C [address] [place] [address] PCP - General Family Practice 10/13/18 Dispatcher Radio Relationship Specialty Start Date End Date Basilio Abraham PA-C [address] [place] [address] PCP - General Family Practice 10/13/18 Dispatcher Radio Relationship Specialty Start Date End Date Basilio Abraham PA-C [address] [place] [address] PCP - General Family Practice 10/13/18 Dispatcher Radio Relationship Specialty Start Date End Date Basilio Abraham PA-C [address] [place] [address] PCP - General Family Practice 10/13/18 Dispatcher Radio Relationship Specialty Start Date End Date Basilio Abraham PA-C [address] [facility] [place] [address] PCP - General Family Practice 10/13/18 Dispatcher Radio Relationship Specialty Start Date End Date Basilio Abraham PA-C [address] [facility] [place] [address] PCP - General Family Practice 10/13/18 Dispatcher Radio Relationship Specialty Start Date End Date Basilio Abraham PA-C [address] [facility] [place] [address] PCP - General Family Practice 10/13/18 Dispatcher Radio Relationship Specialty Start Date End Date Basilio Abraham PA-C [address] [facility] [place] [address] PCP - General Family Medicine 10/13/18 Dispatcher Radio Relationship Specialty Start Date End Date Basilio Abraham PA-C [address] [facility] [place] [address] PCP - General Family Medicine 10/13/18 Dispatcher Radio Relationship Specialty Start Date End Date Basilio Abraham PA-C [address] [facility] [place] [address] PCP - General Family Medicine 10/13/18 Dispatcher Radio Relationship Specialty Start Date End Date Basilio Abraham PA-C [address] [facility] [place] [address] PCP - General Family Medicine 10/13/18 Dispatcher Radio Relationship Specialty Start Date End Date Basilio Abraham PA-C [address] [facility] [place] [address] PCP - General Family Medicine 10/13/18 Dispatcher Radio Relationship Specialty Start Date End Date Basilio Abraham PA-C [address] [facility] [place] [address] PCP - General Family Medicine 10/13/18 Dispatcher Radio Relationship Specialty Start Date End Date Basilio Abraham PA-C [address] [place] [address] PCP - General Family Medicine 10/13/18 Dispatcher Radio Relationship Specialty Start Date End Date Basilio Abraham PA-C [address] [place] [address] PCP - General Family Medicine 10/13/18 Dispatcher Radio Relationship Specialty Start Date End Date Basilio Abraham PA-C [address] [place] [address] PCP - General Family Medicine 10/13/18 Dispatcher Radio Relationship Specialty Start Date End Date Basilio Abraham PA-C [address] [place] [address] PCP - General Family Medicine 10/13/18 Dispatcher Radio Relationship Specialty Start Date End Date Basilio Abraham PA-C [address] [place] [address] PCP - General Family Medicine 10/13/18 Dispatcher Radio Relationship Specialty Start Date End Date Basilio Abraham PA-C [address] [place] [address] PCP - General Family Medicine 10/13/18 Team Status: Active Member Role Status Dates No Primary Care Physician Family Provider Active HARI Jeff Primary Care Provider Active Team Status: Inactive Member Role Status Dates HARI Jeff Primary Care Provider Active Dr. Jordan Casas MD Attending Provider, Referring Provider Active Dispatcher Radio Relationship Specialty Start Date End Date Basilio Abraham PA-C [address] [place] [address] PCP - General Family Medicine 10/13/18 Dispatcher Radio Relationship Specialty Start Date End Date Basilio Abraham PA-C [address] [place], [place] [address] PCP - General Family Medicine 10/13/18 Dispatcher Radio Relationship Specialty Start Date End Date Basilio Abraham PA-C [address] [place], [place] [address] PCP - General Family Medicine 10/13/18 Dispatcher Radio Relationship Specialty Start Date End Date Basilio Abraham PA-C [address] [place], [place] [address] PCP - General Family Medicine 10/13/18 Dispatcher Radio Relationship Specialty Start Date End Date Basilio Abraham PA-C [address] [place], [place] [address] PCP - General Family Medicine 10/13/18 Team [...] DO Attending Provider, Referring P bambi Active Dispatcher Radio Relationship Specialty Start Date End Date Basilio Abraham PA-C [address] [place] [address] PCP - General Family Medicine 10/13/18 Dispatcher Radio Relationship Specialty Start Date End Date Basilio Abraham PA-C [address] [place], [place] [address] PCP - General Family Medicine 10/13/18 Dispatcher Radio Relationship Specialty Start Date End Date Basilio Abraham PA-C [address] [facility] [place] [address] PCP - General Family Medicine 10/13/18 Dispatcher Radio Relationship Specialty Start Date End Date Basilio Abraham PA-C [address] [place] [address] PCP - General Family Medicine 10/13/18 Dispatcher Radio Relationship Specialty Start Date End Date Basilio Abraham PA-C [address] [place] [address] PCP - General Family Medicine 10/13/18 Dispatcher Radio Relationship Specialty Start Date End Date Basilio Abraham PA-C [address] [place] [address] PCP - General Family Medicine 10/13/18 Dispatcher Radio Relationship Specialty Start Date End Date Basilio Abraham PA-C [address] [place] [address] PCP - General Family Medicine 10/13/18 Dispatcher Radio Relationship Specialty Start Date End Date Basilio Abraham PA-C [address] [place] [address] PCP - General Family Medicine 10/13/18 Dispatcher Radio Relationship Specialty Start Date End Date Basilio Abraham PA-C [address] [facility] [address] PCP - General Family Medicine 10/13/18 Dispatcher Radio Relationship Specialty Start Date End Date Basilio Abraham PA-C [address] [facility] [place] [address] PCP - General Family Medicine 10/13/18 Dispatcher Radio Relationship Specialty Start Date End Date Basilio Abraham PA-C [address] [facility] [place] [address] PCP - General Family Medicine 10/13/18 Dispatcher Radio Relationship Specialty Start Date End Date Viola Phelps, DRILLER'S ASSISTANT.STONE DECORATOR [address] [place] [address] PCP - General Family Medicine 07/28/24 Dispatcher Radio Relationship Specialty Start Date End Date Viola Phelps, DRILLER'S ASSISTANT.STONE DECORATOR [address] [place] [address] PCP - General Family Medicine 07/28/24 Dispatcher Radio Relationship Specialty Start Date End Date Viola Phelps, DRILLER'S ASSISTANT.STONE DECORATOR [address] [place] [address] PCP - General Family Medicine 07/28/24 Dispatcher Radio Relationship Specialty Start Date End Date Hawa Abraham PA-C PCP - General Family Medicine 10/13/18 07/27/24 Viola Phelps, DRILLER'S ASSISTANT.STONE DECORATOR [address] [place] [address] PCP - General Family Medicine 07/28/24 Shakila Luu, DRILLER'S ASSISTANT.STONE DECORATOR [address] [facility] [address] Commodities Manager Family Medicine 08/30/24 Salvador Justin MD [address] [facility] [place] [address] Commodities Manager Family Medicine 08/30/24 Dispatcher Radio Relationship Specialty Start Date End Date Viola Phelps APRN.STONE DECORATOR [address] [place] [address] PCP - General Family Medicine 07/28/24 Shakila Luu APRN.STONE DECORATOR [address] [facility] [place] [address] Commodities Manager Family Medicine 08/30/24 Salvador Justin MD [address] [place] [address] Commodities Manager Family Medicine 08/30/24 Dispatcher Radio Relationship Specialty Start Date End Date Viola Phelps APRN.STONE DECORATOR [address] [place] [address] PCP - General Family Medicine 07/28/24 Shakila Luu DRILLER'S ASSISTANT.STONE DECORATOR [address] [place] [address] Commodities Manager Family Medicine 08/30/24 Salvador Justin MD [address] [place] [address] Commodities Manager Family Medicine 08/30/24 Dispatcher Radio Relationship Specialty Start Date End Date Viola Phelps DRILLER'S ASSISTANT.STONE DECORATOR [address] [place] [address] PCP - General Family Medicine 07/28/24 Shakila Luu DRILLER'S ASSISTANT.STONE DECORATOR [address] [place] [address] Commodities Manager Family Medicine 08/30/24 Salvador Justin MD [address] [place] [address] [facility] 08/30/24 Dispatcher Radio Relationship Specialty Start Date End Date Viola Phelps APRN.STONE DECORATOR [address] [place] [address] PCP - General Family Medicine 07/28/24 Shakila Luu APRN.STONE DECORATOR [address] [place] [address] Commodities Manager Family Medicine 08/30/24 Salvador Justin MD [address] [place] [address] [facility] 08/30/24 Dispatcher Radio Relationship Specialty Start Date End Date Viola Phelps APRN.STONE DECORATOR [address] [facility] [place] [address] PCP - General Family Medicine 07/28/24 Shakila Luu APRN.STONE DECORATOR [address] [place] [address] Commodities Manager Family Medicine 08/30/24 Salvador Justin MD [address] [place] [address] Commodities Manager Family Medicine 08/30/24 Dispatcher Radio Relationship Specialty Start Date End Date Viola Phelps APRN.STONE DECORATOR [address] [facility] [place] [address] PCP - General Family Medicine 07/28/24 Shakila Luu APRN.STONE DECORATOR [address] [facility] [place] [address] Commodities Manager Family Medicine 08/30/24 Salvador Justin MD [address] [facility] [place] [address] Commodities Manager Family Medicine 08/30/24 Dispatcher Radio Relationship Specialty Start Date End Date Viola Phelps APRN.STONE DECORATOR [address] [place] [address] PCP - General Family Medicine 07/28/24 Shakila Luu APRN.STONE DECORATOR [address] [place] [address] Commodities Manager Family Medicine 08/30/24 Salvador Justin MD [address] [place] [address] Commodities Manager Family Medicine 08/30/24 Dispatcher Radio Relationship Specialty Start Date End Date Viola Phelps APRN.STONE DECORATOR [address] [place] [address] PCP - General Family Medicine 07/28/24 Dispatcher Radio Relationship Specialty Start Date End Date Viola Phelps APRN.STONE DECORATOR [address] [place] [address] PCP - General Family Medicine 07/28/24 Dispatcher Radio Relationship Specialty Start Date End Date Viola Phelps APRN.STONE DECORATOR [address] [place] [address] PCP - General Family Medicine 07/28/24 Shakila Luu APRN.STONE DECORATOR [address] [place] [address] Commodities Manager Family [facility] 08/30/24 12/14/24 Salvador Justin MD [address] [place], [place] [address]64[address] [facility] 12/14/24 Dispatcher Radio Relationship Specialty Start Date End Date Viola Phelps, DRILLER'S ASSISTANT.STONE DECORATOR [address] [place], [place] [address] PCP - General Family Medicine 07/28/24 Shakila Luu, DRILLER'S ASSISTANT.STONE DECORATOR [address] [place] [address] [facility] 08/30/24 12/14/24 Salvador Justin MD [address] [place], [place] 23[address] [facility] 08/30/24 12/14/24 Dispatcher Radio Relationship Specialty Start Date End Date Viola Phelps, DRILLER'S ASSISTANT.STONE DECORATOR [address] [place], [place] [address] PCP - General Family Medicine 07/28/24 Reason for Visit (unrecogniz ed section and content) Reason Comments Follow Up Chronic Illness Reason Comments Appointment Future Appointment Pain Management Reason Comments Patient Question Orders Reason Comments Follow Up Reason Comments New Patient Evaluation Specialty Diagnoses / Procedures Referred By Contac t Referred To Contact Spine Reading / SPINE Diagnoses Lumbar foraminal stenosis Sacroiliac pain Procedures CONSULT TO [facility] OFFICE/OUTPATIENT [facility] 60-74 MINUTES Basilio Abraham PA-C [address] [place] [address] Spine Med [facility] [address] [place] [id number] Referral ID Status Reason Start Date Expiration Date V isits Requested Visits Authorized [id number] Closed PCP Requested Referral 02/05/2022 02/05/2023 1 [...] BRAIN STEM W/O CONTRAST MATERIAL Patsy Soto, ANIA.STONE DECORATOR [address] [place] [address] [place] [address] Referral ID Status Reason Start Date Expiration Date V isits Requested Visits Authorized [id number] Closed Auto-Generate d Referral 02/21/2023 03/22/2024 1 [...] BE BASED ON THE PRIMARY CLINICAL RECORDS. [employer] provides no warranty or guarantee of the accuracy or completeness of information in this document.
[2025-04-05 08:29] LABS: Anion Gap 10 (5-15); BUN 18 mg/dL (4-19); BUN/Creat Ratio 23.0 RATIO (10-20); Calcium,Total 8.6 mg/dL (7.6-11.0); Carbon Dioxide 22.9 mmol/L (21.0-32.0); Chloride 108 mmol/L (98-108); Estimated Creatinine Clearance 50.63 ml/min (50-250); Glucose 84 mg/dL (70-99); Potassium 3.4 mmol/L (3.3-5.1)
[2025-04-05 10:09] LABS: White Blood Count 7.0 K/mm3 (4.4-11.0)
[2025-04-05 10:10] LABS: Hematocrit 35.3 % (40-54); Hemoglobin 12.1 g/dL (13.0-16.5); Mean Corp Hgb Conc 34.3 g/dL (32-36); Mean Corpuscular Volume 100.0 fL (80-94); Mean Platelet Vol. 11.8 fl (6.2-12.0); Platelet Count 217 K/mm3 (150-450); RBC Distribution Width CV 12.9 % (11.6-14.6); RBC Distribution Width SD 47.3 fl (35.1-43.9); Red Blood Count 3.53 M/mm3 (4.6-6.2); Scan Indicated on CBC? Y/N NO
--- NOTE | 2025-04-05 10:14 | PCM.PN.HOSP ---
Reason for Visit Chief Complaint: Adult failure to thrive Subjective Subjective Patient is an 80-year-old gentleman who apparently has past medical history signal for Parkinson's disease and lives by himself was found laying in his bed with dried blood on his forehead following a wellness check sent to the emergency department. Imaging studies obtained on admission demonstrated acute C5 spinous process fracture as well as subtotal vertebral body fracture at T12 Objective Data Objective Data Vital Signs: Vital Signs Temp Pulse Resp BP Pulse Ox O2 Del Method 98.0 F 62 12 134/80 H 97 Room Air 04/05/25 08:53 04/05/25 08:53 04/05/25 08:53 04/05/25 08:53 04/05/25 08:53 04/05/25 09:57 Oxygen Delivery Method Room Air Weight: 48.6 kg Body Mass Index (BMI) 14.9 Intake & Output: Intake and Output for Last 24 Hours 04/03/25 04/04/25 04/05/25 23:59 23:59 23:59 Intake Total 50 / 50 1000 / 1000 Balance 50 / 50 1000 / 1000 Lab / Micro Data 04/05/25 07:34 04/05/25 07:34 Labs: Laboratory Results - last 24 hr 04/04/25 22:28: WBC 7.4, RBC 3.87 L, Hgb 13.1, Hct 38.9 L, MCV 100.5 H, MCH 33.9 H, MCHC 33.7, RDW Std Deviation 48.0 H, RDW Coeff of [place] 13.1, Plt Count 244, MPV 11.8, Immature Gran % (Auto) 0.400, Neut % (Auto) 79.0 H, Lymph % (Auto) 14.0 L, [place] % (Auto) 5.5, Eos % (Auto) 0.4, Baso % (Auto) 0.7, Absolute Neuts (auto) 5.9, Absolute Lymphs (auto) 1.04, Nucleated RBC % 0, Sodium 140, Potassium 3.2 L, Chloride 103, Carbon Dioxide 23.4, Anion Gap 13, BUN 21 H, Creatinine 1.03, Estim Creat Clear Calc 43.28 L, Est GFR (MDRD) Non-Af 73, BUN/Creatinine Ratio 20.7 H, Glucose 112 H, Calcium 9.1, Magnesium 2.1, Total Bilirubin 0.69, Direct Bilirubin 0.26, AST 29, ALT 21, Alkaline Phosphatase 74, Total Protein 7.4, Albumin 3.9, Globulin 3.5, TSH 2.000 04/05/25 00:22: Urine Color Yellow, Urine Clarity Clear, Urine pH 6.0, Ur Specific [place] 1.025, Urine Protein 30 H, Urine Glucose (UA) Normal, Urine Ketones 15 H, Urine Occult Blood 10 H, Urine Nitrite Negative, Urine Bilirubin 1 H, Urine Urobilinogen 4 H, Ur Leukocyte Esterase Negative, Urine RBC 0 SEEN, Urine WBC 0-5 SEEN, Ur Squamous Epith Cells 0 SEEN, Urine Bacteria 1+, Hyaline Casts 25-50 SEEN, Urine Mucus 2+, Urine Opiates Screen NEGATIVE, U Buprenorphine Qual NEGATIVE, Ur Oxycodone Screen NEGATIVE, Urine Methadone Screen NEGATIVE, Urine Fentanyl Screen NEGATIVE, Ur Barbiturates Screen NEGATIVE, Ur Phencyclidine Scrn NEGATIVE, Ur Amphetamines Screen NEGATIVE, U Benzodiazepines Scrn NEGATIVE, Urine Cocaine Screen NEGATIVE, U Cannabinoids Screen NEGATIVE 04/05/25 02:05: Phosphorus 2.8, Ethyl Alcohol < 10.1 04/05/25 07:34: WBC 7.0, RBC 3.53 L, Hgb 12.1 L, Hct 35.3 L, MCV 100.0 H, MCH 34.3 H, MCHC 34.3, RDW Std Deviation 47.3 H, RDW Coeff of [place] 12.9, Plt Count 217, MPV 11.8, Sodium 141, Potassium 3.4, Chloride 108, Carbon Dioxide 22.9, Anion Gap 10, BUN 18, Creatinine 0.80, Estim Creat Clear Calc 50.63, Est GFR (MDRD) Non-Af 89, BUN/Creatinine Ratio 23.0 H, Glucose 84, Calcium 8.6 Radiography Diagnostic Testing: Radiology Impression Brain CT 04/05/25 00:05 IMPRESSION: No acute intracranial findings. Reading Location: [facility] 04/05/25 00:05 IMPRESSION: C5 spinous process fracture. T2 vertebral body fracture probably acute. Reading Location: [facility] Chest X-Ray 04/05/25 00:35 IMPRESSION: No acute chest findings. Reading Location: [place] [address] Physical Exam Narrative GENERAL: Cachectic looking HEENT: Atraumatic; normocephalic EYES; Anicteric, Normal Conjunctiva NECK; supple, normal thyroid, RESPIRATORY: Diminished to auscultation CARDIOVASCULAR: Regular S1 S2, GI: soft, normoactive bowel sounds, : No Renal angle tenderness; EXTREMITIES: No edema, no clubbing, MUSCULOSKELETAL: no muscle wasting NEURO: Awake; no lateralizing signs. SKIN: No Rash PSYCH; Flat affect Assessment & Plan Assessment/Plan (1) Adult failure to thrive: (2) Parkinsons disease: QUALIFIERS: Dyskinesia presence: unspecified whether dyskinesia Fluctuating manifestations: unspecified whether manifestations fluctuate Qualified Code(s): G20.A1 - Parkinson's disease without dyskinesia, without mention of fluctuations PLAN: Plan Patient is an 80-year-old gentleman who apparently has past medical history signal for Parkinson's disease and lives by himself was found laying in his bed with dried blood on his forehead following a wellness check sent to the emergency department. Imaging studies obtained on admission demonstrated acute C5 spinous process fracture as well as subtotal vertebral body fracture at T12 1. Unwitnessed fall with C5 spinous process fracture as well as subtotal vertebral body fracture at T12 ? Patient has been admitted to monitored bed for pain management. Requested for PT OT eval and child protective services social worker to assist with discharge planning 2. Hypokalemia ? Corrected per protocol as part of patient's evaluation did check for magnesium and phosphorus 3. History of Parkinson's disease ? Complicating care patient currently not on any medications 4. Hypothyroidism ? Patient is on levothyroxine home dose continued 5. Suspected severe protein calorie malnutrition ? Evidenced by significant cachexia apparent decreased oral intake. Consult placed to dietitian 6. DVT prophylaxis ? On enoxaparin Time spent in the patient's overall evaluation,decision-making process, review of diagnostic data, adjustment of management, discussion with other providers, nursing nursing and ancillary staff involved in patient's care documentation, 30 Minutes Charges/Coding Visit Charges Inpatient E&M: 21814 PROLNG IP/OBS E/M EA 15 MIN Multi Select Codes Visit Charges Visit Charges: 12138 PROLNG IP/OBS E/M EA 15 MIN
--- NOTE | 2025-04-05 13:48 | SP.MBSS_ITS ---
Modified Barium Swallow Patient Information Study Date: 04/05/25 Study Time: 12:38 Direct Billable Minutes: 120 Total Minutes procedure & reportin Diagnosis: Parkinson's disease G20.A1, Adult FTT R62.7 Referring Physician: Arsen Wolfe Reason for Referral: Assess swallow function, assess risk for aspiration, and determine recommendations for least restrictive diet textures and compensatory strategies to improve safety of swallow. Medical History: Pt presented to [facility] ED on 04/05/2025 with adult failure to thrive. Medical history is significant for Parkinson's disease and hypothyroidism. Patient lives at home alone. Patient's family member called [employer] for a wellness check evening of presentation and patient was found laying in his bed with dried blood on his forehead. Patient reported that he fell twice the day before admission due to weakness. Hit his head but denied losing consciousness. Patient's home notably was in disarray with multiple cats and a dog living there with a strong ammonia smell noted. Patient was also noted to be quite disheveled appearing. In the ED, he was tachycardic to the 110s but otherwise hemodynamically stable on room air. CT brain and chest x-ray unremarkable. CT C- spine did show an acute C5 spinous process fracture as well as a subtle vertebral body fracture at T2 that was likely acute. Given his weakness with failure to thrive and recent falls, hospitalist was contacted for admission. ST consulted for swallowing difficulty w/ pt reporting to RN that he has trouble swallowing liquids. BSE recommended advancement from NPO to Easy to Chew textures / Thin liquids w/ distant supervision and plan for MBSS this afternoon to further assess swallow function and aspiration risk. Current Diet Ordered: Easy to Chew textures / Thin liquids Dentition: Natural Teeth and Missing Teeth Mental Status: Impaired Respiratory Status: Oxygenating on Room Air Penetration-Aspiration Scale Penetration-Aspiration Scale: OBJECTIVE ASSESSMENT OF SWALLOW FUNCTION (QUANTITATIVE ? PER TRIAL): PENETRATION / ASPIRATION SCALE (HARDIN): 1 = does not enter airway 2 = enters airway/above vocal folds/ejected 3 = enters airway/above vocal folds/not ejected 4 = enters airway/contacts vocal folds/ejected 5 = enters airway/contacts vocal folds/not ejected 6 = enters airway/below vocal folds/ejected 7 = enters airway/below vocal folds/not ejected despite effort 8 = enters airway/below vocal folds/no effort VIDEOFLOROSCOPIC SCALE SCORE (HARDIN): Grade I = aspiration of material that has penetrated into the laryngeal vestibule, intact cough reflex Grade II = aspiration < 10 % of the bolus, intact cough reflex Grade III = aspiration of < 10 % of the bolus, reduced cough reflex or aspiration of > 10 % of the bolus, intact cough reflex Grade IV = aspiration of > 10 % of the bolus, reduced cough reflex Penetration-Aspiration Scale Score Thin Liquid via teaspoon: Result: 7= enters airways/below vocal folds/not ejected despite effort Thin Liquid via teaspoon Trial 2: Result: 5= enters airways/contacts vocal folds/not ejected Thin Liquid via single sip: straw Effortful swallow: Result: 5= enters airways/contacts vocal folds/not ejected Marissa Thick Liquid via teaspoon: Result: 2= enter airway/above vocal folds/ejected Marissa Thick Liquid via teaspoon Trial 2: Result: 2= enter airway/above vocal folds/ejected Marissa Thick Liquid via single sip: straw: Result: 5= enters airways/contacts vocal folds/not ejected Marissa Thick Liquid via single sip: straw Effortful swallow: Result: 5= enters airways/contacts vocal folds/not ejected Marissa Thick Liquid via single sip: straw Effortful swallow Trial 2: Result: 2= enter airway/above vocal folds/ejected Pudding via teaspoon: Result: 1= does not enter airway 1/2 Cookie: Result: 1= does not enter airway Thin Liquid via teaspoon Chin tuck: Result: 2= enter airway/above vocal folds/ejected Thin Liquid via teaspoon Chin tuck Trial 2: Result: 2= enter airway/above vocal folds/ejected Thin Liquid via single sip: straw Chin tuck: Result: 3= enters airways/above vocal folds/not ejected Marissa Thick Liquid via single sip: straw Chin tuck: Result: 2= enter airway/above vocal folds/ejected Oral Phase Labial Seal: Escape progressing to mid-chin Tongue Control During Bolus Hold: Escape to lateral buccal cavity/floor of mouth Bolus Preparation/Mastication: Slow prolonged chewing/mashing with complete recollection Bolus Transport/Lingual Motion: Repetitive/disorganized tongue motion Oral Residue: Majority of bolus remaining (Piecemeal deglutition of pudding) Pharyngeal Phase Initiation of Pharyngeal Swallow: Bolus head in valleculae Soft Palate Elevation: Trace column of contrast/air between soft palate and pharyngeal wall Laryngeal Elevation: Partial superior movement thyroid cart/partial apprx aryt- epig petiole Anterior Hyoid Excursion: Partial anterior movement Epiglottic Movement: Partial inversion Laryngeal Vestibule Closure at Height of Swallow: Incomplete; narrow column of air/contrast in laryngeal vestibule Pharyngeal Stripping Wave: Present - diminished (minimal) Pharyngoesophageal Segment Opening: Parital distension and partial duration; parital obstruction of flow Tongue Base Retraction: Wide column of contrast between tongue base & post. pharyngeal wall Pharyngeal Residue: Collection of residue within or on pharyngeal structures Treatment Strategies Effects of treatment strategies attemped:: Chin tuck = somewhat effective Effortful swallow = not effective Cued cough and re-swallow = somewhat effective Diagnosis/Impression Diagnosis: Moderate oropharyngeal dysphagia R13.12 Impression: The oral phase is primarily marked by... -Lingual pumping for A-P transport. -Slow, but complete mastication of regular-textured cookie coated in barium pudding. -Piecemeal deglutition of pudding. The pharyngeal phase is primarily marked by... -Poor pharyngeal motility w/ poor pharyngeal stripping wave, decreased tongue base retraction w/ moderate pharyngeal residue. -Decreased airway closure during the swallow due to poor anterior hyoid excursion, decreased laryngeal elevation, and partial epiglottic inversion. -Laryngeal penetration of thin and mildly/nectar thick liquids to the vocal folds w/o complete ejection despite use of effortful swallows or chin tucks. Aspiration of thin liquid by tsp w/ delayed, weak reflexive cough. Other Findings: -Pouch-like collection of barium in the UES above CP bar at the level of C7 w/ trace retrograde flow to the pyriform sinuses w/ liquids and pudding-coated cookie. REFRIGERATION BRAZER/SOLDERER to have radiologist, Dr. Faith, further review. Recommendations Diet: Easy to Chew Textures and Thin Liquids Comment: Medications whole in puree Okay for ice chips between meals after oral care w/ distant supervision, would still encourage use of chin tucks w/ ice chips Cue an intermittent cough & re-swallow Compensatory Strategies: Small Bites, Liquid by Teaspoon Only (Chin tuck each sip), Slow Rate, Sitting upright and Remain sitting upright for 30 minutes after PO intake Supervision: 1:1 Direct Supervision Recommend Repeat Modified Barium Swallow: Yes Need for Skilled Speech Therapy Services: Yes (During acute stay and at next level of care) Comment: -Consider use of a bolus control straw (e.g. SafeStraw) to improve ability for self-feeding SMALL sips of liquids. -Implement Abrams Free Water Protocol at next level of care. -Train the patient in use of strategies to decrease risk for aspiration. -Ongoing assessment of diet tolerance of recommended textures. -Train the patient in oropharyngeal exercise program. Education Completed: 1. Described result of evaluation., 2. Pt understands evaluation & agrees with goals and treatment plan. and 7. Pt requires further education on strategies & risks. Status Active ST Patient: Active Contact Information [facility] Speech Therapy:: Ching Cormier M.A. CCC-REFRIGERATION BRAZER/SOLDERER? Speech-Language Pathologist?? [facility] [address] [place] [address]? [email or web address]?? [phone]
--- NOTE | 2025-04-05 14:13 | CASEMGMT ---
SW attempted to meet w/pt, however he states is in too much pain to speak w/SW at this time. SW alerted RN, will follow up later as time allows. PEYTON Singh
--- NOTE | 2025-04-05 15:12 | CASEMGMT ---
Social Work SW met w/pt, reviewed prior level of function and anticipated discharge plan. PCP: Viola Carcamo NP Specialists: None. Pt states he has seen a neurologist but not recently. [facility]acy[facility] Insurance: [place] LNOK: Pt has a sister Iqra who goes between [place] and [place], [place]. He also has a niece who is more local but pt did not way where. Living arrangements: Pt lives home alone in a two story home, normally goes up the steps to the bed, states uses the bannister to get up the steps. Pt states he is independent w/ADLS, says he cooks and cleans as best he can, organizes his medications, still drives. LW/POA: Pt states he has done the paperwork and sister Iqra is his POA. Pt will not be able to get the documents to the hospital at this time. SNF/HHC: No history of either Outpt PT: Pt has been to [facility] DME: Pt states uses a golf club as a cane, has no other DME. Plan: TBD. SW spoke w/pt about going somewhere for rehab. SW did create in [facility] a list of jail facilities in network w/pt's insurance, in pt's preferred geographic area, and complete w/quality and resource use data. SW explained we can see how therapy goes tomorrow, and then discuss options for discharge including going somewhere for rehab. Pt states understanding. SW did also ask pt about his dog and cats, as he had mentioned being concerned about his pets to PT/OT. Pt states his niece is to check on them, and he mentioned that she may need to adopt the animals. SW will follow up tomorrow w/pt once he has had PT/OT, to review appropriate discharge plan. PEYTON Singh
[2025-04-06] VITALS (7 sets, daily range): BP systolic 120–162; BP diastolic 83–108; PULSE 64–87; RESP 16–18; TEMP 36–36.9; O2SAT 93–100
--- NOTE | 2025-04-06 07:19 | PN.HOSP_ITS ---
Reason for Visit Chief Complaint: Adult failure to thrive Objective Data Objective Data Vital Signs: Vital Signs Temp Pulse Resp BP Pulse Ox O2 Del Method 97.8 F 76 18 143/100 H 100 Room Air 04/06/25 05:20 04/06/25 05:20 04/06/25 05:20 04/06/25 05:20 04/06/25 05:20 04/06/25 05:20 Oxygen Delivery Method Room Air Weight: 48.6 kg Body Mass Index (BMI) 14.9 Intake & Output: Intake and Output for Last 24 Hours 04/04/25 04/05/25 04/06/25 23:59 23:59 23:59 Intake Total 50 / 50 1400 / 1400 60 / 60 Output Total 600 / 600 200 / 200 Balance 50 / 50 800 / 800 -140 / -140 Medical Nutrition Assessment Dietitian: Malnutrition Criteria Met Start: 04/05/25 16:53 Freq: Status: Active Protocol: Document 04/05/25 17:44 RMA (Rec: 04/05/25 17:45 RMA [id number]) Nutrition Malnutrition Evidence of Yes Malnutrition Exists Malnutrition (severe Chronic ): Evidenced By Suboptimal Energy Intake (Severe),Weight Loss (Severe), Physical Changes (Severe) Clinical Problem Chronic Disease or Condition Related Malnutrition Etiology Severe protein-calorie malnutrition in the context of chronic disease and debility/failure to thrive related to inadequate oral intake and inadequate energy/protein intake; likely chewing/swallowing difficulty Signs/Symptoms as evidenced by BMI 14.9, approximately 29% unintentional weight loss x past 1 year, severe muscle wasting/fat depleted stores in the clavicle, face, arms and PO meeting less than 50% estimated nutrition needs x past 6-12 months. Status Active Problem Recommendation Dietitian Liberalized Regular Diet with consistency/texture as Recommendations/ per PHARMACY ASSISTANT. Changes Continue 120mL ensure plus HP 3 times per day w/ medpass as ordered. Will add 240mL ensure plus HP w/ breakfast tray. Will add magic cup w/ lunch and dinner for tolerance. May need to consider enteral nutrition support for energy/protein repletion especially if PO established suboptimal to support estimated nutrition needs and weight gain. Trend weights and adjust ONS to support weight gain and repletion. Lab / Micro Data 04/05/25 07:34 04/05/25 07:34 Labs: Laboratory Results - last 24 hr 04/05/25 07:34: WBC 7.0, RBC 3.53 L, Hgb 12.1 L, Hct 35.3 L, MCV 100.0 H, MCH 34.3 H, MCHC 34.3, RDW Std Deviation 47.3 H, RDW Coeff of Iliana 12.9, Plt Count 217, MPV 11.8, Sodium 141, Potassium 3.4, Chloride 108, Carbon Dioxide 22.9, Anion Gap 10, BUN 18, Creatinine 0.80, Estim Creat Clear Calc 50.63, Est GFR (MDRD) Non-Af 89, BUN/Creatinine Ratio 23.0 H, Glucose 84, Calcium 8.6 Physical Exam Narrative GENERAL: Cachectic looking HEENT: Atraumatic; normocephalic EYES; Anicteric, Normal Conjunctiva NECK; supple, normal thyroid, RESPIRATORY: Diminished to auscultation CARDIOVASCULAR: Regular S1 S2, GI: soft, normoactive bowel sounds, : No Renal angle tenderness; EXTREMITIES: No edema, no clubbing, MUSCULOSKELETAL: no muscle wasting NEURO: Awake; no lateralizing signs. SKIN: No Rash PSYCH; Flat affect Assessment & Plan Assessment/Plan (1) Adult failure to thrive: (2) Parkinsons disease: QUALIFIERS: Dyskinesia presence: unspecified whether dyskinesia F luctuating manifestations: unspecified whether manifestations fluctuate Q ualified Code(s): G20.A1 - Parkinson's disease without dyskinesia, without mention of fluctuations PLAN: Plan Patient is an 80-year-old gentleman who apparently has past medical history signal for Parkinson's disease and lives by himself was found laying in his bed with dried blood on his forehead following a wellness check sent to the emergency department. Imaging studies obtained on admission demonstrated acute C5 spinous process fracture as well as subtotal vertebral body fracture at T12 1. Unwitnessed fall with C5 spinous process fracture as well as subtotal vertebral body fracture at T12 ? Patient has been admitted to monitored bed for pain management. Requested for PT OT eval and web content & social media manager to assist with discharge planning 2. Hypokalemia ? Corrected per protocol as part of patient's evaluation did check for magnesium and phosphorus 3. History of Parkinson's disease ? Complicating care patient currently not on any medications 4. Hypothyroidism ? Patient is on levothyroxine home dose continued 5. Suspected severe protein calorie malnutrition ? Evidenced by significant cachexia apparent decreased oral intake. Consult placed to dietitian 6. DVT prophylaxis ? On enoxaparin Time spent in the patient's overall evaluation,decision-making process, review of diagnostic data, adjustment of management, discussion with other providers, nursing nursing and ancillary staff involved in patient's care documentation, 30 Minutes
--- NOTE | 2025-04-06 14:54 | CASEMGMT ---
Social Work SW met w/pt in regard to discharge planning. SW spoke w/pt about going somewhere for rehab, did bring in a long term facility list from [facility] of facilities in network w/insurance, in pt's preferred geographic area and complete w/quality and resource use data. Pt however does not have his glasses. SW reviewed some options w/pt. Pt states that he would rather go home, states he had someone who was going to come in to help him at home, but the person disappeared on him. SW explained that getting home eventually may be possible but going straight home from here may be difficult. Pt did point to the cuts and scabs on his legs, and said he is scared to fall again. Pt agreeable to a referral today to TCU. SW will start with this, and if TCU cannot take pt SW will speak w/pt again about additional choices. Pt at this point only agreeable to TCU. SW made referral, will continue to follow. PEYTON Singh
--- NOTE | 2025-04-06 15:27 | CASEMGMT ---
Met with patient to complete ROCHA form. ROCHA form and its content were verbally explained and patient's questions were answered to the best of my ability.? Patient voiced understanding. Pt was unable to sign d/t not having his eyeglasses and tremors.? Patient provided a copy of ROCHA form and original placed in patient's chart.? Patient had no further questions. Radha Altamirano, Discharge Planning Asst
[2025-04-06] MEDS: Ensure Plus High Protein 120 ML LIQUID PO (17:53)
[2025-04-06] MEDS: MELATONIN 3 MG TABLET PO (22:05)
[2025-04-06 23:36] LABS: Mucous, Urine 0 SEEN /hpf (<or=2+); Squamous Epithelial Cells - UA 0 SEEN /hpf (0-5)
[2025-04-06 23:40] LABS: Color, Urine Amber (Yellow); Glucose, Dipstick Normal (Normal); Ketone-Dipstick Negative (Negative); Leukocyte Esterase-Dipstick 25 /ul (Negative); Nitrite-Dipstick Negative (Negative); Occult Blood-Urine 250 /ul (Negative); Protein-Dipstick 100 mg/dl (Negative); Specific Gravity, Urine 1.020 (1.002-1.030); Urine Bilirubin Dipstick Negative (Negative)
[2025-04-06 23:49] LABS: Red Blood Cells-Urine > 100 SEEN /hpf (0-5)
[2025-04-07 04:20] VITALS: BP 140/93; PULSE 62; RESP 15; TEMP 36.4; O2SAT 99
[2025-04-07 06:58] LABS: Hematocrit 37.6 % (40-54); Hemoglobin 12.9 g/dL (13.0-16.5); Immature Granulocytes Count 0.020 X10^3/uL (0.0-0.0); Mean Corp Hgb Conc 34.3 g/dL (32-36); Mean Corpuscular Volume 98.2 fL (80-94); Mean Platelet Vol. 10.5 fl (6.2-12.0); NRBC Flagged by Analyzer 0 % (0-5); Platelet Count 228 K/mm3 (150-450); RBC Distribution Width CV 12.8 % (11.6-14.6); RBC Distribution Width SD 46.0 fl (35.1-43.9); Red Blood Count 3.83 M/mm3 (4.6-6.2); White Blood Count 6.7 K/mm3 (4.4-11.0)
[2025-04-07 07:29] LABS: AST(SGOT) 24 U/L (<=37); Alanine Aminotransfer ALT/SGPT 19 U/L (<=46); Albumin, Serum 3.5 g/dL (3.4-4.8); Alkaline Phosphatase 76 U/L (40-129); Anion Gap 8 (5-15); BUN 13 mg/dL (4-19); BUN/Creat Ratio 16.0 RATIO (10-20); Calcium,Total 9.1 mg/dL (7.6-11.0); Carbon Dioxide 27.3 mmol/L (21.0-32.0); Chloride 103 mmol/L (98-108); Estimated Creatinine Clearance 50.63 ml/min (50-250); Globulin 3.2 g/dL (2.2-4.2); Glucose 96 mg/dL (70-99); Magnesium 2.1 mg/dL (1.5-2.2); Potassium 3.3 mmol/L (3.3-5.1)
--- NOTE | 2025-04-07 08:41 | PCM.PN.HOSP ---
Reason for Visit Chief Complaint: Adult failure to thrive Subjective Subjective Urinalysis obtained on 04/06/2025 demonstrated hematuria with positive leukocyte Estrace. Urine culture subsequently sent patient started on ceftriaxone Objective Data Objective Data Vital Signs: Vital Signs Temp Pulse Resp BP Pulse Ox O2 Del Method 97.5 F L 62 15 140/93 H 99 Room Air 04/07/25 04:20 04/07/25 04:20 04/07/25 04:20 04/07/25 04:20 04/07/25 04:20 04/07/25 08:00 Oxygen Delivery Method Room Air Weight: 48.6 kg Body Mass Index (BMI) 14.9 Intake & Output: Intake and Output for Last 24 Hours 04/05/25 04/06/25 04/07/25 23:59 23:59 23:59 Intake Total 1400 / 1400 320 / 320 Output Total 600 / 600 600 / 600 Balance 800 / 800 -280 / -280 Medical Nutrition Assessment Dietitian: Malnutrition Criteria Met Start: 04/05/25 16:53 Freq: Status: Active Protocol: Document 04/05/25 17:44 RMA (Rec: 04/05/25 17:45 RMA [id number]) Nutrition Malnutrition Evidence of Yes Malnutrition Exists Malnutrition (severe Chronic ): Evidenced By Suboptimal Energy Intake (Severe),Weight Loss (Severe), Physical Changes (Severe) Clinical Problem Chronic Disease or Condition Related Malnutrition Etiology Severe protein-calorie malnutrition in the context of chronic disease and debility/failure to thrive related to inadequate oral intake and inadequate energy/protein intake; likely chewing/swallowing difficulty Signs/Symptoms as evidenced by BMI 14.9, approximately 29% unintentional weight loss x past 1 year, severe muscle wasting/fat depleted stores in the clavicle, face, arms and PO meeting less than 50% estimated nutrition needs x past 6-12 months. Status Active Problem Recommendation Dietitian Liberalized Regular Diet with consistency/texture as Recommendations/ per CORE DRILLER HELPER. Changes Continue 120mL ensure plus HP 3 times per day w/ medpass as ordered. Will add 240mL ensure plus HP w/ breakfast tray. Will add magic cup w/ lunch and dinner for tolerance. May need to consider enteral nutrition support for energy/protein repletion especially if PO established suboptimal to support estimated nutrition needs and weight gain. Trend weights and adjust ONS to support weight gain and repletion. Lab / Micro Data 04/07/25 06:43 04/07/25 06:43 Labs: Laboratory Results - last 24 hr 04/06/25 22:24: Urine Color E[place], Urine Clarity Cloudy, Urine pH 6.0, Ur Specific [place] 1.020, Urine Protein 100 H, Urine Glucose (UA) Normal, Urine Ketones Negative, Urine Occult Blood 250 H, Urine Nitrite Negative, Urine Bilirubin Negative, Urine Urobilinogen 1 H, Ur Leukocyte Esterase 25 H, Urine RBC > 100 SEEN, Urine WBC 0 SEEN, Ur Squamous Epith Cells 0 SEEN, Urine Bacteria RARE, Urine Mucus 0 SEEN 04/07/25 06:43: WBC 6.7, RBC 3.83 L, Hgb 12.9 L, Hct 37.6 L, MCV 98.2 H, MCH 33.7 H, MCHC 34.3, RDW Std Deviation 46.0 H, RDW Coeff of Iliana 12.8, Plt Count 228, MPV 10.5, Immature Gran % (Auto) 0.300, Neut % (Auto) 67.9, Lymph % (Auto) 20.0, [place] % (Auto) 7.9, Eos % (Auto) 2.7, Baso % (Auto) 1.2 H, Absolute Neuts (auto) 4.6, Absolute Lymphs (auto) 1.34, Nucleated RBC % 0, Sodium 138, Potassium 3.3, Chloride 103, Carbon Dioxide 27.3, Anion Gap 8, BUN 13, Creatinine 0.80, Estim Creat Clear Calc 50.63, Est GFR (MDRD) Non-Af 89, BUN/Creatinine Ratio 16.0, Glucose 96, Calcium 9.1, Phosphorus 2.7, Magnesium 2.1, Total Bilirubin 0.54, AST 24, ALT 19, Alkaline Phosphatase 76, Total Protein 6.7, Albumin 3.5, Globulin 3.2, Albumin/Globulin Ratio 1.1 Physical Exam Narrative GENERAL: Cachectic looking HEENT: Atraumatic; normocephalic EYES; Anicteric, Normal Conjunctiva NECK; supple, normal thyroid, RESPIRATORY: Diminished to auscultation CARDIOVASCULAR: Regular S1 S2, GI: soft, normoactive bowel sounds, : No Renal angle tenderness; EXTREMITIES: No edema, no clubbing, MUSCULOSKELETAL: no muscle wasting NEURO: Awake; no lateralizing signs. SKIN: No Rash PSYCH; Flat affect Assessment & Plan Assessment/Plan (1) Adult failure to thrive: (2) Parkinsons disease: QUALIFIERS: Dyskinesia presence: unspecified whether dyskinesia Fluctuating manifestations: unspecified whether manifestations fluctuate Qualified Code(s): G20.A1 - Parkinson's disease without dyskinesia, without mention of fluctuations PLAN: Plan Patient is an 80-year-old gentleman who apparently has past medical history signal for Parkinson's disease and lives by himself was found laying in his bed with dried blood on his forehead following a wellness check sent to the emergency department. Imaging studies obtained on admission demonstrated acute C5 spinous process fracture as well as subtotal vertebral body fracture at T12 1. Unwitnessed fall with C5 spinous process fracture as well as subtotal vertebral body fracture at T12 ? Patient has been admitted to monitored bed for pain management. Requested for PT OT eval and director social service to assist with discharge planning ? 04/06/2025; patient complains of aching all 2. Hypokalemia ? Corrected per protocol as part of patient's evaluation did check for magnesium and phosphorus ? 04/07/2025; repeat potassium 3.3 additional potassium given 3. History of Parkinson's disease ? Complicating care patient currently not on any medications 4. Hypothyroidism ? Patient is on levothyroxine home dose continued 5. Suspected severe protein calorie malnutrition ? Evidenced by significant cachexia apparent decreased oral intake. Consult placed to dietitian 6. DVT prophylaxis ? On enoxaparin 7. Suspected cystitis ? Urinalysis obtained on 04/06/2025 demonstrated hematuria with positive leukocyte Estrace. Urine culture subsequently sent patient started on ceftriaxone Charges/Coding Visit Charges Inpatient E&M: 13564 Subs Hosp L2
[2025-04-07 09:01] VITALS: BP 111/80; PULSE 87; RESP 16; TEMP 36.4; O2SAT 98
[2025-04-07] MEDS: 0.9% Saline Lock 10 ML Syringe IV (10:27)
[2025-04-07 14:30] VITALS: BP 102/76; PULSE 98; RESP 14; TEMP 36.8; O2SAT 99
--- NOTE | 2025-04-07 15:27 | CASEMGMT ---
Social Work MCKINLEY spoke with Araseli in TCU and pt has been accepted for placement on Saturday. MCKINLEY met with pt and informed of this and pt is agreeable to dc plan. With pt permission, phone call to pt sister Iqra and updated her on discharge plan. Iqra agreeable. Plan: TCU, on Saturday if medically ready NIELS Yates
[2025-04-07 19:57] VITALS: BP 111/90; PULSE 88; RESP 16; TEMP 36.6; O2SAT 98
[2025-04-07] MEDS: MELATONIN 3 MG TABLET PO (23:31)
[2025-04-08 02:22] VITALS: BP 166/111; PULSE 65; RESP 15; TEMP 36.4; O2SAT 99
[2025-04-08 05:04] VITALS: BP 132/94; PULSE 69; RESP 14; TEMP 36.3; O2SAT 98
--- NOTE | 2025-04-08 09:38 | PCM.PN.HOSP ---
Reason for Visit Chief Complaint: Adult failure to thrive Subjective Subjective Patient seen and appears to be back to his baseline. Urine culture is pending Objective Data Objective Data Vital Signs: Vital Signs Temp Pulse Resp BP Pulse Ox O2 Del Method 97.4 F L 69 14 132/94 H 98 Room Air 04/08/25 05:04 04/08/25 05:04 04/08/25 05:04 04/08/25 05:04 04/08/25 05:04 04/08/25 05:04 Oxygen Delivery Method Room Air Weight: 48.6 kg Body Mass Index (BMI) 14.9 Intake & Output: Intake and Output for Last 24 Hours 04/06/25 04/07/25 04/08/25 23:59 23:59 23:59 Intake Total 320 / 320 50 / 50 Output Total 600 / 600 100 / 100 Balance -280 / -280 49 / 49 -100 / -100 Medical Nutrition Assessment Dietitian: Malnutrition Criteria Met Start: 04/05/25 16:53 Freq: Status: Active Protocol: Document 04/05/25 17:44 RMA (Rec: 04/05/25 17:45 RMA [id number]) Nutrition Malnutrition Evidence of Yes Malnutrition Exists Malnutrition (severe Chronic ): Evidenced By Suboptimal Energy Intake (Severe),Weight Loss (Severe), Physical Changes (Severe) Clinical Problem Chronic Disease or Condition Related Malnutrition Etiology Severe protein-calorie malnutrition in the context of chronic disease and debility/failure to thrive related to inadequate oral intake and inadequate energy/protein intake; likely chewing/swallowing difficulty Signs/Symptoms as evidenced by BMI 14.9, approximately 29% unintentional weight loss x past 1 year, severe muscle wasting/fat depleted stores in the clavicle, face, arms and PO meeting less than 50% estimated nutrition needs x past 6-12 months. Status Active Problem Recommendation Dietitian Liberalized Regular Diet with consistency/texture as Recommendations/ per [employer] PLANS INTELLIGENCE OFFICER CHIEF. Changes Continue 120mL ensure plus HP 3 times per day w/ medpass as ordered. Will add 240mL ensure plus HP w/ breakfast tray. Will add magic cup w/ lunch and dinner for tolerance. May need to consider enteral nutrition support for energy/protein repletion especially if PO established suboptimal to support estimated nutrition needs and weight gain. Trend weights and adjust ONS to support weight gain and repletion. Lab / Micro Data 04/07/25 06:43 04/07/25 06:43 Physical Exam Narrative GENERAL: Cachectic looking HEENT: Atraumatic; normocephalic EYES; Anicteric, Normal Conjunctiva NECK; supple, normal thyroid, RESPIRATORY: Diminished to auscultation CARDIOVASCULAR: Regular S1 S2, GI: soft, normoactive bowel sounds, : No Renal angle tenderness; EXTREMITIES: No edema, no clubbing, MUSCULOSKELETAL: no muscle wasting NEURO: Awake; no lateralizing signs. SKIN: No Rash PSYCH; Flat affect Assessment & Plan Assessment/Plan (1) Adult failure to thrive: (2) Parkinsons disease: QUALIFIERS: Dyskinesia presence: unspecified whether dyskinesia Fluctuating manifestations: unspecified whether manifestations fluctuate Qualified Code(s): G20.A1 - Parkinson's disease without dyskinesia, without mention of fluctuations PLAN: Plan Patient is an 80-year-old gentleman who apparently has past medical history signal for Parkinson's disease and lives by himself was found laying in his bed with dried blood on his forehead following a wellness check sent to the emergency department. Imaging studies obtained on admission demonstrated acute C5 spinous process fracture as well as subtotal vertebral body fracture at T12 1. Unwitnessed fall with C5 spinous process fracture as well as subtotal vertebral body fracture at T12 ? Patient has been admitted to monitored bed for pain management. Requested for PT OT eval and social service agency director to assist with discharge planning ? 04/06/2025; patient complains of aching all ? 04/08/2025; patient pain control improving. Do anticipate patient be ready for discharge on 04/09/2025 2. Hypokalemia ? Corrected per protocol as part of patient's evaluation did check for magnesium and phosphorus ? 04/07/2025; repeat potassium 3.3 additional potassium given 3. History of Parkinson's disease ? Complicating care patient currently not on any medications 4. Hypothyroidism ? Patient is on levothyroxine home dose continued 5. Suspected severe protein calorie malnutrition ? Evidenced by significant cachexia apparent decreased oral intake. Consult placed to dietitian 6. DVT prophylaxis ? On enoxaparin 7. Suspected cystitis ? Urinalysis obtained on 04/06/2025 demonstrated hematuria with positive leukocyte Estrace. Urine culture subsequently sent patient started on ceftriaxone ? 04/08/2025; urine cultures pending Charges/Coding Visit Charges Inpatient E&M: 60382 Subs Hosp L2
[2025-04-08 10:14] VITALS: BP 111/79; PULSE 64; RESP 16; TEMP 36.3; O2SAT 96
[2025-04-08 13:50] VITALS: O2SAT 94
[2025-04-08 16:00] VITALS: BP 127/90; PULSE 69; RESP 17; TEMP 36.4; O2SAT 96
[2025-04-08 21:20] VITALS: BP 157/95; PULSE 66; RESP 18; TEMP 36.4; O2SAT 98
[2025-04-09 03:34] VITALS: BP 139/82; PULSE 64; RESP 18; TEMP 36.4; O2SAT 98
[2025-04-09 09:30] VITALS: BP 100/77; PULSE 71; RESP 16; TEMP 36.6; O2SAT 98
--- NOTE | 2025-04-09 10:23 | DS.PCM_ITS ---
Providers Date of Admission: 04/06/25 Date of Discharge: 04/09/25 Primary Care Physician: HAO Rivera Reason For Visit: ADULT FAILURE TO THRIVE Diagnosis Discharge Diagnosis (1) Adult failure to thrive: Status: Acute Code(s): R62.7 - Adult failure to thrive (2) Parkinsons disease: Status: Acute Code(s): G20.A1 - Parkinson's disease without dyskinesia, without mention of fluctuations Qualifiers: Dyskinesia presence: unspecified whether dyskinesia Fluctuating manifestations: unspecified whether manifestations fluctuate Qualified Code(s): G20.A1 - Parkinson's disease without dyskinesia, without mention of fluctuations Plan Patient is an 80-year-old gentleman who apparently has past medical history signal for Parkinson's disease and lives by himself was found laying in his bed with dried blood on his forehead following a wellness check sent to the emergency department. Imaging studies obtained on admission demonstrated acute C5 spinous process fracture as well as subtotal vertebral body fracture at T12 1. Unwitnessed fall with C5 spinous process fracture as well as subtotal vertebral body fracture at T12 ? Patient has been admitted to monitored bed for pain management. Requested for PT OT eval and group social worker to assist with discharge planning ? 04/06/2025; patient complains of aching all ? 04/08/2025; patient pain control improving. Do anticipate patient be ready for discharge on 04/09/2025 ? 04/09/2025; plan is for patient to be discharged to a longterm facility 2. Hypokalemia ? Corrected per protocol as part of patient's evaluation did check for magnesium and phosphorus ? 04/07/2025; repeat potassium 3.3 additional potassium given 3. History of Parkinson's disease ? Complicating care patient currently not on any medications 4. Hypothyroidism ? Patient is on levothyroxine home dose continued 5. Suspected severe protein calorie malnutrition ? Evidenced by significant cachexia apparent decreased oral intake. Consult placed to dietitian 6. DVT prophylaxis ? On enoxaparin 7. Suspected cystitis ? Urinalysis obtained on 04/06/2025 demonstrated hematuria with positive leukocyte Estrace. Urine culture subsequently sent patient started on ceftriaxone ? 04/08/2025; urine cultures pending ? 04/09/2025; urine cultures came back positive for mid mixed group antibiotics discontinued Medications at Discharge Home Medications levothyroxine 50 mcg tablet 50 mcg PO DAILY 05/18/24 acetaminophen 500 mg tablet 1,000 mg (2 x 500 mg) PO Q8 #0 tabs 04/09/25 docusate sodium 100 mg capsule 100 mg PO DAILY #0 caps 04/09/25 oxycodone 5 mg tablet 5 mg PO Q4H PRN PRN Pain Score 4-10 1 day #3 tabs 04/09/25 tizanidine 2 mg tablet 4 mg (2 x 2 mg) PO Q8H PRN PRN spasms/musculoskeletal pain #0 tabs 04/09/25 Hospital Course Summary of Care Provided Minutes Spent on Discharge: 35 Physical Exam Narrative GENERAL: Cachectic looking HEENT: Atraumatic; normocephalic EYES; Anicteric, Normal Conjunctiva NECK; supple, normal thyroid, RESPIRATORY: Diminished to auscultation CARDIOVASCULAR: Regular S1 S2, GI: soft, normoactive bowel sounds, : No Renal angle tenderness; EXTREMITIES: No edema, no clubbing, MUSCULOSKELETAL: no muscle wasting NEURO: Awake; no lateralizing signs. SKIN: No Rash PSYCH; Flat affect Medical Records Data Medical Nutrition Assessment Dietitian: Malnutrition Criteria Met Start: 04/05/25 16:53 Freq: Status: Active Protocol: Document 04/05/25 17:44 RMA (Rec: 04/05/25 17:45 RMA [id number]) Nutrition Malnutrition Evidence of Yes Malnutrition Exists Malnutrition (severe Chronic ): Evidenced By Suboptimal Energy Intake (Severe),Weight Loss (Severe), Physical Changes (Severe) Clinical Problem Chronic Disease or Condition Related Malnutrition Etiology Severe protein-calorie malnutrition in the context of chronic disease and debility/failure to thrive related to inadequate oral intake and inadequate energy/protein intake; likely chewing/swallowing difficulty Signs/Symptoms as evidenced by BMI 14.9, approximately 29% unintentional weight loss x past 1 year, severe muscle wasting/fat depleted stores in the clavicle, face, arms and PO meeting less than 50% estimated nutrition needs x past 6-12 months. Status Active Problem Recommendation Dietitian Liberalized Regular Diet with consistency/texture as Recommendations/ per BEATER WORKER HELPER. Changes Continue 120mL ensure plus HP 3 times per day w/ medpass as ordered. Will add 240mL ensure plus HP w/ breakfast tray. Will add magic cup w/ lunch and dinner for tolerance. May need to consider enteral nutrition support for energy/protein repletion especially if PO established suboptimal to support estimated nutrition needs and weight gain. Trend weights and adjust ONS to support weight gain and repletion. Weight / BMI Weight Weight: 48.6 kg Body Mass Index (BMI) 14.9 ABG / Lab / Microbiology Data 04/07/25 06:43 04/07/25 06:43 Microbiology: Microbiology 04/06/25 22:24 Urine, Random Urine Culture - Final Mixed Gram Positive Organisms D/C Instructions Discharge Activity: Return to Normal Activity Call your doctor if you observe: Fever of 101 or Higher, Shortness of breath, Fainting spells and Chest pain DC O2, CPAP, BIPAP Needs Home O2 Discharge instructions: No Meaningful Use Info Meaningful Use Meaningful Use Diagnoses (Choose all that apply): None applicable Discharge Plan Admission Admit Date/Time: 04/06/25 09:29 Attending Provider: Arsen Wolfe Primary Care Provider: Viola Phelps NP Consulting Providers: Sim Horn Discharge Orders/Prescriptions Prescriptions: New tizanidine 2 mg Tablet 4 mg PO Q8H PRN PRN (Reason: spasms/musculoskeletal pain) Qty: 0 0RF acetaminophen 500 mg Tablet 1,000 mg PO Q8 Qty: 0 0RF docusate sodium 100 mg Capsule 100 mg PO DAILY Qty: 0 0RF oxycodone 5 mg Tablet 5 mg PO Q4H PRN PRN (Reason: Pain Score 4-10) 1 Days Qty: 3 0RF Continued levothyroxine 50 mcg tablet 50 mcg PO DAILY Discontinued Excedrin Extra Strength 250-250-65 mg tablet 1 tab PO ONCE Referrals / Follow Up: Viola Phelps NP, PAN RECLAIM PROCESSOR-C [Primary Care Provider] - Disposition Disposition (needs filled in before D/C Order can be placed): [facility] Charges/Coding Visit Charges Inpatient E&M: 92156 Disch Hosp >30min
--- NOTE | 2025-04-09 10:27 | PCM.TXEXTCAR ---
Diet Diet Order/Speech Therapy: INPATIENT Hospital Diet / Speech Therapy Order(s) 04/05/25 10:04 Diet: Regular - General Food consistency:: Easy to Chew Liquid Consistency:: Regular/Thin Type of Dietary Supplement:: Magic Cup w/ lunch&dinner Diet Comments: 240mL ensure plus HP w/ breakfast tray Speech Therapy Comments: Direct staff sup, liquids by tsp, chin tuck Routine Orders/Code Status Code Status: Full Code DC O2, CPAP, BIPAP needs Home O2 Discharge instructions: No Wound(s) bilateral legs: Wound Type: Abrasion top of head: Wound Type: Laceration bridge of nose: Wound Type: Laceration left eyebrow: Wound Type: Laceration bilateral arms: Wound Type: Abrasion Therapies Physical Therapy: Eval and Treat Occupational Therapy: Eval and Treat Problem/Diagnosis (1) Adult failure to thrive: Status: Acute Code(s): R62.7 - Adult failure to thrive (2) Parkinsons disease: Status: Acute Code(s): G20.A1 - Parkinson's disease without dyskinesia, without mention of fluctuations Plan Patient is an 80-year-old gentleman who apparently has past medical history signal for Parkinson's disease and lives by himself was found laying in his bed with dried blood on his forehead following a wellness check sent to the emergency department. Imaging studies obtained on admission demonstrated acute C5 spinous process fracture as well as subtotal vertebral body fracture at T12 1. Unwitnessed fall with C5 spinous process fracture as well as subtotal vertebral body fracture at T12 ? Patient has been admitted to monitored bed for pain management. Requested for PT OT eval and social media marketer to assist with discharge planning ? 04/06/2025; patient complains of aching all ? 04/08/2025; patient pain control improving. Do anticipate patient be ready for discharge on 04/09/2025 ? 04/09/2025; plan is for patient to be discharged to a care home facility 2. Hypokalemia ? Corrected per protocol as part of patient's evaluation did check for magnesium and phosphorus ? 04/07/2025; repeat potassium 3.3 additional potassium given 3. History of Parkinson's disease ? Complicating care patient currently not on any medications 4. Hypothyroidism ? Patient is on levothyroxine home dose continued 5. Suspected severe protein calorie malnutrition ? Evidenced by significant cachexia apparent decreased oral intake. Consult placed to dietitian 6. DVT prophylaxis ? On enoxaparin 7. Suspected cystitis ? Urinalysis obtained on 04/06/2025 demonstrated hematuria with positive leukocyte Estrace. Urine culture subsequently sent patient started on ceftriaxone ? 04/08/2025; urine cultures pending ? 04/09/2025; urine cultures came back positive for mid mixed group antibiotics discontinued Allergies/Procedures Done in Hospital Allergies No Known Allergies Allergy (Verified 05/18/24 01:09) Type of Care/Length of Stay Estimated LOS: Convalescent Care Less Than 30 days Type of Care Needed: Skilled Rehab Potential: Good Prognosis: Good Additional Orders/Day of Discharge Day of Discharge: 04/09/25 Dietary and Speech Recommendations Dietitian Recommendations/Changes: Continue Regular Diet with consistency/texture as per WOOD PILE DRIVER OPERATOR. Continue 240mL ensure plus HP w/ breakfast tray. Continue magic cup w/ lunch and dinner for tolerance. May need to consider enteral nutrition support for energy/protein repletion especially if PO established suboptimal to support estimated nutrition needs and weight gain. Trend weights and adjust ONS to support weight gain and repletion. Discharge Plan Admission Admit Date/Time: 04/06/25 09:29 Attending Provider: Arsen Wolfe Primary Care Provider: Viola Phelps NP Consulting Providers: Sim Horn Discharge Orders/Prescriptions Prescriptions: New tizanidine 2 mg Tablet 4 mg PO Q8H PRN PRN (Reason: spasms/musculoskeletal pain) Qty: 0 0RF acetaminophen 500 mg Tablet 1,000 mg PO Q8 Qty: 0 0RF docusate sodium 100 mg Capsule 100 mg PO DAILY Qty: 0 0RF oxycodone 5 mg Tablet 5 mg PO Q4H PRN PRN (Reason: Pain Score 4-10) 1 Days Qty: 3 0RF Continued levothyroxine 50 mcg tablet 50 mcg PO DAILY Discontinued Excedrin Extra Strength 250-250-65 mg tablet 1 tab PO ONCE Referrals / Follow Up: Viola Phelps NP, CONSTRUCTION RECRUITER-C [Primary Care Provider] - Disposition Disposition (needs filled in before D/C Order can be placed): [facility] (2) Parkinsons disease Qualifiers: Dyskinesia presence: unspecified whether dyskinesia Fluctuating manifestations: unspecified whether manifestations fluctuate Qualified Code(s): G20.A1 - Parkinson's disease without dyskinesia, without mention of fluctuations
--- NOTE | 2025-04-09 11:00 | CASEMGMT ---
Social Work Per physician, pt is ready for discharge today. MCKINLEY updated Araseli in TCU and pt is able to be admitted today. MCKINLEY met with pt and updated on discharge to TCU today. MCKINLEY called pt sister Iqra and notified of dc plan. Iqra is agreeable. Disposition: TCU, skilled level of care NIELS Thomas
== END 2025-04-09 11:20 | disposition skilled nursing facility (03) | DRG 551 ==
LOC: ED 04-05 02:45 → PCU 04-05 02:57
PROVIDERS: Internal Medicine; Admitting Provider Hospitalist; Emergency Provider Emergency Medicine; PCP Registered Nurse; Visit Provider Internal Medicine
DX: S12.400A Unspecified displaced fracture of fifth cervical vertebra, initial encounter for closed fracture (principal); E43 Unspecified severe protein-calorie malnutrition; S22.029A Unspecified fracture of second thoracic vertebra, initial encounter for closed fracture; S22.089A Unspecified fracture of T11-T12 vertebra, initial encounter for closed fracture; Z68.1 Body mass index [BMI] 19.9 or less, adult; R62.7 Adult failure to thrive; G20.A1 Parkinson's disease without dyskinesia, without mention of fluctuations; E03.9 Hypothyroidism, unspecified; E87.6 Hypokalemia; W19.XXXA Unspecified fall, initial encounter; N30.91 Cystitis, unspecified with hematuria; Y92.009 Unspecified place in unspecified non-institutional (private) residence as the place of occurrence of the external cause; R41.0 Disorientation, unspecified; R53.1 Weakness; Z79.82 Long term (current) use of aspirin; Z79.890 Hormone replacement therapy; Z87.891 Personal history of nicotine dependence
CPT/HCPCS: 36415; 70450; 71045; 72125; 74230; 80048; 80053; 80076; 80307; 81001; 82077; 83735; 84100; 84443; 85025; 85027; 87086; 87088; 92610; 92611; 93005; 94668; 97116; 97162; 97166; 97530; 97535; 97802; 99285; A4216

== ENCOUNTER 2025-04-09 11:24 | Inpatient (IN) | payer MEDICARE, OTHER, SELFPAY ==
[2025-04-09 11:36] VITALS: BP 113/75; PULSE 63; RESP 17; TEMP 36.9; O2SAT 96; BMI 15.0
--- NOTE | 2025-04-09 14:47 | PCM.HP.STD ---
HPI - General General Date of Admission: 04/09/25 Date of Service: 04/09/25 Chief Complaint: Here for rehabilitation. HPI Narrative NAVA HEALY, is a 80 Male who presents with followin04/05/2025 [facility] ED weakness. Welfare check, found at home, confused, poor living conditions, not caring for self, head trauma c/w fall. CT head negative, CT cervical spine, stable spinous fracture, Chest X-ray negative. Labs okay. PT/OT/CM for placement. 04/05/2025 Admit [facility]. PT/OT/CM for placement. Replete potassium. No medications for Parkinson's disease 2/2 intolerance. 04/06/2025 PT/OT/CM for placement. Consult dietary for severe malnutrition. 04/06/2025 Aching all over. 04/07/2025 No acute events overnight. 04/08/2025 Admit to TCU with debility, here for rehabilitation, strengthening, prior to disposition determination. [facility] Medical History (Updated 04/09/25 @ 14:[address] Joshua Matson MD) Hypothyroid Parkinsons disease Osteoarthritis of carpometacarpal joint of left thumb Home Medications ?Medication ?Instructions ?Recorded ?Last Taken ?Type levothyroxine 50 mcg tablet 50 mcg PO DAILY thyroid 05/18/24 04/04/25 History acetaminophen 500 mg tablet 1,000 mg (2 x 500 mg) PO Q8 pain 04/09/25 Unknown Rx (1-10) #0 tabs docusate sodium 100 mg capsule 100 mg PO DAILY stool softener #0 04/09/25 Unknown Rx caps oxycodone 5 mg tablet 5 mg PO Q4H PRN PRN Pain Score 04/09/25 Unknown Rx 4-10 1 day #3 tabs tizanidine 2 mg tablet 4 mg (2 x 2 mg) PO Q8H PRN PRN 04/09/25 Unknown Rx spasms/musculoskeletal pain #0 tabs Allergy/AdvReac Type Severity Reaction Status Date / Time No Known Allergies Allergy Verified 05/18/24 01:09 Family History Other Arthritis Cancer Social History (Updated 04/09/25 @ 14:[address] Joshua Matson MD) household members: none Smoking Status: Former smoker alcohol intake: never substance use type: does not use what type of physical activity do you participate in: none ROS Constitutional Constitutional: Reports weakness and other Details: Pain all over. ; Denies chills, fever(s) or weight gain ENT HEENT: Denies headache(s), nasal congestion or nasal discharge Cardiovascular Cardiovascular: Denies chest pain or palpitations Respiratory/Chest Respiratory/Chest: Denies cough, excessive phlegm production or shortness of breath with exertion Gastrointestinal Gastrointestinal: Denies abdominal pain, nausea or vomiting Genitourinary Genitourinary: Denies dysuria Musculoskeletal Musculoskeletal: Denies joint pain or joint swelling Integumentary Integumentary: Denies rash or wounds Neurologic Neurologic: Denies focal weakness, numbness or tingling Psychiatric Psychiatric: Denies anxiety, auditory hallucinations, depression, homicidal ideation or suicidal ideation Vital Signs Vital Signs Vital Signs: 04/09/25 11:36 04/09/25 11:36 Temperature 98.4 F Temperature Source Temporal Pulse Rate 63 Pulse Rhythm Regular Pulse Strength Weak (1+) Respiratory Rate 17 Respiratory Effort Normal Non-Labored Respiratory Depth Shallow Respiratory Pattern Normal Blood Pressure 113/75 Blood Pressure Mean 87 Blood Pressure Source Monitor Blood Pressure Position Supine Blood Pressure Location Left Arm Pulse Ox 96 96 Oxygen Delivery Method Room Air Room Air Weight Weight: 48.943 kg Body Mass Index (BMI) 15.0 Physical Exam Narrative Cachetic. Const alert General Appearance: cooperative HEENT normocephalic Eyes PERRL and EOMs intact bilaterally Neck supple, no JVD and no carotid bruits Resp normal respiratory effort, normal air movement and clear to auscultation bilaterally Cardio regular rate and regular rhythm GI normal to inspection, nondistended, normoactive bowel sounds, non-tender and non-distended Extremity normal capillary refill General Extremity: Negative for edema Skin no rashes or lesions noted General Skin Exam: no breakdown Psych affect normal Appearance: appropriate Results Medical Records Data Medical Nutrition Assessment Dietitian: Malnutrition Criteria Met Start: 04/09/25 13:49 Freq: Status: Active Protocol: Document 04/09/25 13:49 ERNESTO (Rec: 04/09/25 13:49 [id number]) Nutrition Malnutrition Evidence of Yes Malnutrition Exists Malnutrition (severe Chronic ): Evidenced By Suboptimal Energy Intake (Severe),Weight Loss (Severe), Physical Changes (Severe) Clinical Problem Chronic Disease or Condition Related Malnutrition Etiology related to suboptimal po intake and difficulty chewing/ swallowing Signs/Symptoms as evidenced by 28.3% unplanned wt loss and po intake meeting < 75% of est nutritional needs x 1 year, need for modified consistency diet, obvious fat loss/muscle wasting throughout body and BMI = 15.0 Status Active Problem Biting/Chewing Difficulty Etiology swallowing r/t issues w/ dysphagia Signs/Symptoms as evidenced by need for modified consistency diet Status Active Problem Recommendation Dietitian Continue liberal regular diet - consistency per SLAT BASKET TOP MAKER - d Recommendations/ /t signs and symptoms of malnutrition Changes Will provide fortified foods w/ meals as able for increased nutrition if consumed Will order 4 oz ensure plus high protein 4x/day w/ medpass for increased nutrition if consumed Rec appetite stimulant to help encourage increased po intake at meals and of ONS MD may wish to consider alternate nutrition support (ie TF) if po intake fails to improve/further wt loss to help prevent further decline in res nutritional status - if in accordance w/ res/family wishes. Assessment & Plan Assessment/Plan (1) Debility: (2) Fracture of spinous process of cervical vertebra: (3) Parkinsons disease: QUALIFIERS: Dyskinesia presence: unspecified whether dyskinesia Fluctuating manifestations: unspecified whether manifestations fluctuate Qualified Code(s): G20.A1 - Parkinson's disease without dyskinesia, without mention of fluctuations (4) Osteoporosis: QUALIFIERS: Osteoporosis type: other Presence of current pathological fracture: unspecified Qualified Code(s): M81.8 - Other osteoporosis without current pathological fracture (5) Hypokalemia: (6) Hypothyroid: PLAN: Plan 80 year old male with below past medical history hospitalized for encephalopathy, failure to thrive, complicated by Parkinson Disease, hypokalemia, malnutrition, admitted to TCU with debility, here for rehabilitation, strengthening, prior to disposition determination. Debility - PT/OT. Pain - Tylenol 1000mg q8, Oxycodone 5mg q4 prn pain (4-10). Bowel - senna/colace 1 tablet bid, Magnesium citrate 300mL daily prn Adult immunization - Administer pneumonia vaccine, covid vaccine, flu vaccine as appropriate. DVT prophylaxis - Lovenox 40mg sc daily. Parkinson Disease - Sinemet 10/100mg tidac, intolerable in the past, try again, low dose. Nutrition - Ensure Plus High 120mL 4x/day. Hypothyroidism - Levothyroxine 50mcg daily. Dry eyes - Artificial tears 2 gtt q1h prn. Muscle spasm - Tizanidine 4mg q8 prn. The following psychotropic medication is being started or the dose in being increased: Mirtazapine 7.5mg qhs. Psychotropic medication therapy is indicated for a diagnosis of: Depression/Appetite loss/insomnia. In my professional judgement, medication is necessary because the resident?s symptoms cause significant distress to the resident or a danger to the resident or others. Evaluation for underlying causes including medical illness and pain has been considered. The benefits of the medication are felt to outweigh potential harm. Nonpharmacologic/behavior interventions have been attempted but have not been effective or nonpharmacologic interventions are contraindicated for this patient. Potential benefits and risks of treatment and alternatives have been reviewed with resident/family and the resident/family have accepted psychotropic medication treatment. Please see nursing documentation.
[2025-04-09] MEDS: Ensure Plus High Protein 120 ML LIQUID PO ×2 (16:38→21:21)
[2025-04-09] MEDS: Senna/Docusate Sodium 1 Tablet 2 TABLET PO (21:24)
--- NOTE | 2025-04-10 04:26 | NURSING ---
New admission on previous shift. Patient has been very restless and impulsive this shift. Bed alarm in place for safety as patient nearly continuously attempt to self-transfer without being able to communicate where he is trying to go or what he needs. Assisted with the urinal frequently, approximately every 30-60 minutes. Bladder scan showed no post-void residual, patient did complain of burning when asked. Patient is disoriented and mumbles, making him hard to understand. He was able to communicate pain and was given PRN medications as ordered. Patient also shows very disorganized behavior, such as asking for a warm blanket and shortly after throwing it off, then trying to get out of bed because he is cold, removing his gown frequently and pushing items off his bedside table onto the floor. Interventions attempted include redirection, 1 on 1 support, toileting, food and water offered, repositioning, and providing warm blankets; interventions very mildly effective. Written communication left for Dr. Matson.
[2025-04-10] MEDS: Ensure Plus High Protein 120 ML LIQUID PO ×4 (05:22→20:45)
[2025-04-10 07:19] LABS: Hematocrit 36.0 % (40-54); Hemoglobin 12.2 g/dL (13.0-16.5); Immature Granulocytes Count 0.050 X10^3/uL (0.0-0.0); Mean Corp Hgb Conc 33.9 g/dL (32-36); Mean Corpuscular Volume 100.3 fL (80-94); Mean Platelet Vol. 10.9 fl (6.2-12.0); NRBC Flagged by Analyzer 0 % (0-5); Platelet Count 205 K/mm3 (150-450); RBC Distribution Width CV 13.3 % (11.6-14.6); RBC Distribution Width SD 48.9 fl (35.1-43.9); Red Blood Count 3.59 M/mm3 (4.6-6.2); White Blood Count 9.2 K/mm3 (4.4-11.0)
[2025-04-10 07:35] LABS: Anion Gap 8 (5-15); BUN 18 mg/dL (4-19); BUN/Creat Ratio 21.4 RATIO (10-20); Calcium,Total 9.2 mg/dL (7.6-11.0); Carbon Dioxide 27.3 mmol/L (21.0-32.0); Chloride 103 mmol/L (98-108); Estimated Creatinine Clearance 48.55 ml/min (50-250); Glucose 90 mg/dL (70-99); Potassium 3.8 mmol/L (3.3-5.1)
[2025-04-10 09:00] VITALS: BP 91/60; PULSE 67; RESP 16; TEMP 36.7; O2SAT 93
--- NOTE | 2025-04-10 10:16 | PCM.PN.DRR ---
Documented by User: Zhang De La Cruz 04/10/25 10:32 TCU RX Drug Regimen Review Subjective/Objective Subjective/Objective Subjective: TCU admission note. 80 year old male with below past medical history hospitalized for encephalopathy, failure to thrive, complicated by Parkinson Disease, hypokalemia, malnutrition, admitted to TCU with debility, here for rehabilitation, strengthening, prior to disposition determination. Objective: Allergies No Known Allergies Allergy (Verified 05/18/24 01:09) Current Medications Generic Name Dose Route Start Last Admin Trade Name Freq PRN Reason Stop Dose Admin Acetaminophen 1,000 mg 04/09/25 14:00 04/10/25 05:10 Acetaminophen 500 Mg Tablet PO 1,000 mg Q8 LAUREL Administration Carbidopa/Levodopa 1 tablet 04/09/25 16:45 04/10/25 05:11 Carbidopa/Levodopa 10/100 Tablet PO 1 tablet TIDAC LAUREL Administration Enoxaparin Sodium 40 mg 04/10/25 06:00 04/10/25 05:10 Enoxaparin 40 Mg/0.4 Ml Syringe SC 40 mg DAILY@0600 LAUREL Administration Glycerin/Hypromellose/Polyethylene 2 drp 04/09/25 11:52 Glycerin/Hypromellose/[id number] 15 Ml Bottle EACH EYE Q1H PRN DRY EYES Levothyroxine Sodium 50 mcg 04/10/25 06:00 04/10/25 05:09 Levothyroxine 50 Mcg Tablet PO 50 mcg DAILY@0600 LAUREL Administration Magnesium Citrate 300 ml 04/09/25 14:54 Magnesium Citrate 300 Ml PO DAILY PRN Constipation Mirtazapine 7.5 mg 04/09/25 22:00 04/09/25 21:21 Mirtazapine 15 Mg Tablet PO 7.5 mg QHS LAUREL Administration Nutritional Formula (Lactose Free) 120 ml 04/09/25 17:00 04/10/25 05:22 Ensure Plus High Protein 120 Ml Liquid PO 120 ml 4X/DAY LAUREL Administration Oxycodone HCl 5 mg 04/09/25 11:39 04/10/25 05:19 Oxycodone 5 Mg Tablet PO 5 mg Q4H PRN PRN Administration Pain Score 4-10 Senna/Docusate Sodium 2 tablet 04/09/25 22:00 04/09/25 21:24 Senna/Docusate Sodium 1 Tablet PO 2 tablet BID LAUREL Administration Sodium Chloride 10 - 40 ml 04/09/25 12:01 0.9% Saline Lock 10 Ml Syringe IV UD PRN SALINE FLUSH Tizanidine HCl 4 mg 04/09/25 11:39 04/10/25 05:08 Tizanidine Hcl 2 Mg Tablet PO 4 mg Q8H PRN PRN Administration spasms/musculoskeletal pain Tuberculin PPD 0.1 ml 04/17/25 10:00 Tuberculin,Purif.Prot.Deriv. 50 Tu/Ml Vial ID 04/17/25 10:01 X1 ONE Problem List Hypothyroid (Acute) Hypokalemia (Acute) Debility (Acute) Fracture of spinous process of cervical vertebra (Acute) Osteoporosis (Acute) Parkinsons disease (Acute) Vital Signs Temp Pulse Resp BP Pulse Ox O2 Del Method 98.4 F 63 17 113/75 96 Room Air 04/09/25 11:36 04/09/25 11:36 04/09/25 11:36 04/09/25 11:36 04/09/25 11:36 04/10/25 05:00 Oxygen Delivery Method Room Air Weight: 48.943 kg Body Mass Index (BMI) 15.0 Sodium 138 mmol/L (133-145) 04/10/25 06:42 Potassium 3.8 mmol/L (3.3-5.1) 04/10/25 06:42 Chloride 103 mmol/L (98-108) 04/10/25 06:42 Carbon Dioxide 27.3 mmol/L (21.0-32.0) 04/10/25 06:42 Anion Gap 8 (5-15) 04/10/25 06:42 BUN 18 mg/dL (4-19) 04/10/25 06:42 Creatinine 0.84 mg/dL (0.70-1.20) 04/10/25 06:42 Est GFR (MDRD) Non-Af 88 (>60) 04/10/25 06:42 BUN/Creatinine Ratio 21.4 RATIO (10-20) H 04/10/25 06:42 Glucose 90 mg/dL (70-99) 04/10/25 06:42 Assessment/Plan: 1. Pain: acetaminophen 1000 mg PO Q8H. Oxycodone 5 mg Po Q4H PRN pain (4-10). The patient has used 4 doses of PRN oxycodone so far this admission for pain scores of 8-9/10 resulting in pain scores of 0-2/10. Please continue to monitor pain levels, PRN medication usage, LFTs (24/19 U/L on 04/07/25), for respiratory depression, constipation, syncope/ataxia/falls, and for dizziness/drowsiness. 2. Bowel: senna/docusate 1 tablet PO BID, magnesium citrate 300 mL PO daily PRN constipation. The patient has not required any PRN doses of magnesium citrate so far this admission and the patient's last bowel movement was documented as 04/07/25. Please continue to monitor for PRN medication usage, bowel movements, constipation and diarrhea. 3. DVT prophylaxis: enoxaparin 40 mg SC daily. Please continue to monitor for s/s of a DVT such as pain/erythema/swelling in an extremity, for s/s of bleeding/excessive bruising, renal function (serum creatinine = 0.84 mg/dL with creatinine clearance ~ 49 mL/min on 04/10/25), hemoglobin levels (Hgb = 12.2 g/dL on 04/10/25), platelet counts (Plt = 205 K/mm3 on 04/10/25), and for pain around injection site. 4. Parkinson disease: sinemet 10/100 mg PO TIDAC. Please continue to monitor for dyskinesias, falls, and dizziness/drowsiness. 5. Hypothyroidism: levothyroxine 50 mcg PO daily. Please continue to monitor thyroid hormone levels (TSH = 2 uIU/mL on 04/04/25), and for s/s of hypo/hyperthyroidism. 6. Muscle spasms: tizanidine 4 mg PO Q8H PRN muscle spasms. The patient has required 2 PRN doses of tizanidine so far this admission. Please continue to monitor for muscle spasms, PRN medication usage, asthenia, and for s/s of hypotension. 7. Dry eyes: artificial tears 2 drops in each eye Q1H PRN dry eyes. The patient has not required any PRN doses of artificial tears so far this admission. Please continue to monitor for dry eyes, and for PRN medication usage. 8. Nutrition: ensure plus high protein 120 mL PO 4x/day. Please continue to monitor overall nutritional status. Assessment/Plan for indications treated with psychotropic medications: 1. Depression/appetite loss/insomnia: mirtazapine 7.5 mg PO QHS. Monitor for drowsiness, dizziness or confusion, appetite and body weight (can cause weight gain), dry mouth, abnormal movements/movement disorders (including akathisia, dyskinesia, acute dystonia or restless leg syndrome), suicidal thoughts or behaviors (Boxed Warning). Monitor for constipation. Last documented BM = 04/07/25 Monitor lipids as indicated (can increase serum cholesterol and triglycerides). No recent lipid panel. Monitor blood pressure. BP range since admission = 100-166/75-111 mmHg Monitor for orthostatic hypotension, including postural dizziness, syncope or falls. Check orthostatic vital signs if suspicion of orthostasis. Monitor for efficacy including resident symptoms, behaviors and indications of distress. Monitor for drowsiness/insomnia, and for SI> Monitor for tolerability including mental status, cognition, excessive sleepiness, withdrawal or decreased participation in activities and decline in physical functioning. Maximize use of nonpharmacologic/behavioral interventions to facilitate dose reduction or discontinuation as appropriate. Please evaluate the appropriateness of GDR unless contraindicated. If appropriate, GDR should be attempted in 2 separate quarters within the first year of use or admission to TCU. If GDR attempted, monitor resident symptoms/behaviors. Medical chart and medication regimen reviewed. The following medication irregularities or issues were identified: NA Date Date of Note: 04/10/25 Documented by User: Dr. Joshua Matson MD 04/10/25 15:14 TCU RX Drug Regimen Review Provider Comments Provider responsibility Provider Comments to Recommendations by Pharmacy Agree
[2025-04-10] MEDS: Senna/Docusate Sodium 1 Tablet 2 TABLET PO ×2 (11:26→20:46)
[2025-04-10] MEDS: Tuberculin,Purif.prot.deriv. 50 TU/ML Vial 0.1 ML ID (11:29)
[2025-04-11 04:03] VITALS: PULSE 104; RESP 16; O2SAT 94
--- NOTE | 2025-04-11 04:24 | NURSING ---
Alert to self, restless, agitated at times, aggressive at times toward staff, yelling out, using foul language toward staff, 1:1, removing clothing, awake much of the night. Dr. Matson contacted via telephone and notified of patient agitation and restlessness, new order received for Ativan 0.5mg Q4H PRN, order repeated back and verified.
--- NOTE | 2025-04-11 05:00 | NURSING ---
Presents in bed, eyes closed, resps even and unlabored. No distress or restlessness observed at this time. Personal alarm in place per order and functioning properly. Call light and personal items within reach.
--- NOTE | 2025-04-11 05:54 | NURSING ---
Patient declines 0600 oral meds as ordered, despite encouragement/education/1:1/repositioning/fluids/food/toileting/soft music, agitated at this time AEB throws pillow across room, yells fuck you guys. Alert to self, able to redirect at this time, positioned for comfort, declines PRN pain medication yells No!. Personal alarm in place per order and functioning properly, denies further needs at this time, call light and personal items within reach.
--- NOTE | 2025-04-11 05:57 | NURSING ---
Written communication left for Dr. Matson regarding refusal of 0600 oral medications
[2025-04-11 06:37] VITALS: BP 90/50; PULSE 105; RESP 14; TEMP 36.9; O2SAT 96
--- NOTE | 2025-04-11 07:15 | NURSING ---
Addendum entered by Christal Mckeon 04/11/25 16:04: Pt remained resting until 2pm. Pt changed, toileting offered, water administered, applesauce and pudding provided. Pt repositioned. Pt was crawling out of bed, grabbing staff hands firmly, yelling at staff. Multiple attempts to redirect. PRN Ativan administered. Addendum entered by Christal Mckeon 04/11/25 09:10: Pt noted to be resting quietly in lobby, eyes closed beginning at 0800. Addendum entered by Christal Mckeon 04/11/25 09:09: approx 04/11/25 at 0730 enjoys sweets. Oral Ativan crushed and placed in chocolate pudding. Pt spit first bite across the table but accepted second with more encouragement. Dr Matson notified. N.O. Ativan IM. Original Note: Pt crawling OOB. Agitated, swearing and attempting to swing at staff. Dr Matson notified Ativan increased to 1 mg.
[2025-04-11] MEDS: Senna/Docusate Sodium 1 Tablet 2 TABLET PO (07:22)
[2025-04-11 16:00] VITALS: BP 89/67; PULSE 109; RESP 16; TEMP 36.6; O2SAT 96
--- NOTE | 2025-04-11 21:13 | NURSING ---
Attempted to give HS medications to patient. Patient is agitated and swatting at staff. Patient refused to take medications as ordered. Call light in reach. Bed in lowest position. Personal alarm on as ordered.
--- NOTE | 2025-04-11 21:23 | NURSING ---
Addendum entered by Micah Oviedo 04/11/25 21:42: Restlessness continues, agitated, yelling out, [employer] at bedside, 1:1 Original Note: Agitated, restless, AEB attempting to hit staff, attempting to self transfer, using foul language, yelling at staff. Food/fluids/toileting/soft music/repositioning/temperature adjusted/refused RTN tylenol. Attempts to strike staff with hands when attempting to assist patient Non-pharmacologic interventions ineffective at this time. PRN Ativan administered as ordered for agitation and restlessness. Personal alarm in place per order and functioning properly. Bed in lowest position. Call light in reach. 1:1 at this time.
--- NOTE | 2025-04-11 22:18 | NURSING ---
Presents in bed, eyes closed, resps even and unlabored, no distress observed or reported at this time. No restlessness or agitation at this time. Bed in lowest position, personal items and call light within reach, personal alarm in place and functioning properly.
--- NOTE | 2025-04-12 00:09 | NURSING ---
Facial grimacing, restless, moaning, c/o pain, unable to verbalize pain scale numerically. PRN Oxy administered as ordered at this time, positioned for comfort. Bed in lowest position call light in reach. Personal alarm in place per order and functioning properly
--- NOTE | 2025-04-12 01:26 | NURSING ---
Pt restless, agitated, and calling out. Staff in room to ensure pt safety. Pt attempting to get out of bed, attempting to kick and hit staff. Positioned for comfort. PRN Ativan administered at this time. Bed in lowest position, call light within reach. Personal alarm on and functioning properly.
[2025-04-12 02:49] VITALS: PULSE 98; RESP 18
--- NOTE | 2025-04-12 03:49 | NURSING ---
Pt agitated, restless, and moaning. Facial grimacing noted on assessment. PRN Zanaflex administered at this time for pain. Pt repositioned for comfort. Bed in lowest position. Call light in reach. Personal alarm on and functioning.
--- NOTE | 2025-04-12 06:26 | NURSING ---
Unable to administer 0600 medications as ordered at this time due to lethargy. Pt presents in bed respirations even and unlabored. No restlessness or agitation observed at this time. Written communication left for Dr. Matosn regarding issue. Personal alarm in place and functioning. Call light within reach. Bed brakes locked and bed in lowest position.
--- NOTE | 2025-04-12 06:56 | NURSING ---
Written communication left for Dr. Matson regarding pt refusing meals on 04/11/25, restlessness, agitation, aggression at times, refusal of HS medications, inability to administer 0600 medications due to lethargy, complaint of pain despite PRN oxycodone, last BM on 04/07/25, and poor fluid intake.
--- NOTE | 2025-04-12 07:37 | NURSING ---
Confidential voicemail left for SW requesting assist with verifying code status
--- NOTE | 2025-04-12 09:36 | CASEMGMT ---
Addendum entered by Sara Parker 04/12/25 10:28: MCKINLEY received return call from jourdan, confirming HCPOA, and spoke with mother (Iqra). MCKINLEY explained pt's current medical condition and 's recommendation for [facility] hospice. Nimain explained she has not been involved in pt's medical history as he is a private person, and she [place] out of state, inquiring further about medical conditions, requesting to speak to . MCKINLEY agreed to coordinate. Jourdan inquired further about hospice services. MCKINLEY educated to TCU services, [facility] services and hospice in a SNF, and stating pt is immiment with terminal restlessness. Niece agreed to hospice services and if pt is elgibile for IPU, along with change in code status to DNR-CC. Niece will plan to take off work and come visit pt. MCKINLEY educated to next steps - hospice nurse to evaluate for IPU and Dr to contact jourdan. MCKINLEY will assist with ongoing coordination and will be conversing with nimain. Jourdan appreciative. - MCKINLEY notified Dr. phoned nimain. MCKINLEY sent referral to [facility] via secure email. IDT updated. Original Note: Social Work SW received VM from manufacturing shift supervisor/weekend staff that pt is consitently restless, agitated, uncomfortable, yelling out. Dr. Matson confirmed pt is appropriate for [facility] and for SW to coordinate with family. Pt is confused. - MCKINLEY phoned contact listed, Iqra flor, who resides in [place]. MCKINLEY inquired about decision-maker for pt. MCKINLEY viewed HCPRENALDO and jourdan, Dulce, listed. Iqra confirmed that is her dtr, and she is HCPOA. MCKINLEY briefly explained is recommending hospice and pt is likely imminent. Offered for sister to visit pt and sister stated she saw pt at [place] and wants to remember him that way - denied visiting. Sister shared that pt was historically noncompliant with medical care and used the internet to self-diagonose or not seek recommended treatment by physician. MCKINLEY appreciative of insight and will contact jourdan to get further direction. Sister appreciative of update. Sister provided phone number for jourdan as [phone] (HCPOA stated [phone]). - MCKINLEY phoned both variations of phone number and received VMs, requesting call back, even if phone number is incorrect. SW will continue to follow. Sara Parker MSW [employer]ING [employer]ANT SUPERVISOR
[2025-04-12 15:48] VITALS: BP 99/69; PULSE 80; RESP 16; TEMP 36.6; O2SAT 96
--- NOTE | 2025-04-12 18:27 | NURSING ---
Hospice nurse at bedside for evaluation. Report called, transportation will be here within an hour or 2 per nurse.
--- NOTE | 2025-04-13 12:24 | DS.PCM_ITS ---
Providers Date of Admission: 04/09/25 Primary Care Physician: HAO Rivera Consultations 04/12/25 10:19 Consult: Hospice / Palliative Care Routine Consulting Provider: [facility] Reason for Consult: HOSPICE: DX - TERMINAL RESTLESSNESS EMERGENT Consult: Yes MD Notified: Yes Date Notified: 04/12/25 Time Notified: 10:19 Method of Notification: Text Reason For Visit: FAILURE TO THRIVE Diagnosis Discharge Diagnosis (1) Debility: Status: Acute Code(s): R53.81 - Other malaise (2) Fracture of spinous process of cervical vertebra: Status: Acute Code(s): S12.9XXA - Fracture of neck, unspecified, initial encounter (3) Parkinsons disease: Status: Acute Code(s): G20.A1 - Parkinson's disease without dyskinesia, without mention of fluctuations Qualifiers: Dyskinesia presence: unspecified whether dyskinesia Fluctuating manifestations: unspecified whether manifestations fluctuate Qualified Code(s): G20.A1 - Parkinson's disease without dyskinesia, without mention of fluctuations (4) Osteoporosis: Status: Acute Code(s): M81.0 - Age-related osteoporosis without current pathological fracture Qualifiers: Osteoporosis type: other Presence of current pathological fracture: u nspecified Qualified Code(s): M81.8 - Other osteoporosis without current pathological fracture (5) Hypokalemia: Status: Acute Code(s): E87.6 - Hypokalemia (6) Hypothyroid: Status: Acute Code(s): E03.9 - Hypothyroidism, unspecified Plan 80 year old male with below past medical history hospitalized for encephalopathy, failure to thrive, complicated by Parkinson Disease, hypokalemia, malnutrition, admitted to TCU with debility, here for rehabilitation, strengthening, prior to disposition determination. * Debility - PT/OT. * Pain - Tylenol 1000mg q8, Oxycodone 5mg q4 prn pain (4-10). * Bowel - senna/colace 1 tablet bid, Magnesium citrate 300mL daily prn * Adult immunization - Administer pneumonia vaccine, covid vaccine, flu vaccine as appropriate. * DVT prophylaxis - Lovenox 40mg sc daily. * Parkinson Disease - Sinemet 10/100mg tidac, intolerable in the past, try again, low dose. * Nutrition - Ensure Plus High 120mL 4x/day. * Hypothyroidism - Levothyroxine 50mcg daily. * Dry eyes - Artificial tears 2 gtt q1h prn. * Muscle spasm - Tizanidine 4mg q8 prn. The following psychotropic medication is being started or the dose in being increased: Mirtazapine 7.5mg qhs. Psychotropic medication therapy is indicated for a diagnosis of: Depression/Appetite loss/insomnia. In my professional judgement, medication is necessary because the resident?s symptoms cause significant distress to the resident or a danger to the resident or others. Evaluation for underlying causes including medical illness and pain has been considered. The benefits of the medication are felt to outweigh potential harm. Nonpharmacologic/behavior interventions have been attempted but have not been effective or nonpharmacologic interventions are contraindicated for this patient. Potential benefits and risks of treatment and alternatives have been reviewed with resident/family and the resident/family have accepted psychotropic medication treatment. Please see nursing documentation. Medications at Discharge Home Medications levothyroxine 50 mcg tablet 50 mcg PO DAILY thyroid 05/18/24 acetaminophen 500 mg tablet 1,000 mg (2 x 500 mg) PO Q8 pain (1-10) #0 tabs 04/09/25 docusate sodium 100 mg capsule 100 mg PO DAILY stool softener #0 caps 04/09/25 oxycodone 5 mg tablet 5 mg PO Q4H PRN PRN Pain Score 4-10 1 day #3 tabs 04/09/25 tizanidine 2 mg tablet 4 mg (2 x 2 mg) PO Q8H PRN PRN spasms/musculoskeletal pain #0 tabs 04/09/25 Hospital Course Operations None Procedures None Summary of Care Provided Minutes Spent on Discharge: 35 Hospital Course: 80 year old male with below past medical history hospitalized for encephalopathy, failure to thrive, complicated by Parkinson Disease, hypokalemia, malnutrition, admitted to TCU with debility, here for rehabilitation, strengthening, prior to disposition determination. Patient with terminal restlessness from dying process. Discharge to Inpatient hospice 04/12/2025 for end of life care. Physical Exam Const alert General Appearance: cooperative HEENT normocephalic Eyes PERRL and EOMs intact bilaterally Neck supple, no JVD and no carotid bruits Resp normal respiratory effort, normal air movement and clear to auscultation bilaterally Cardio regular rate and regular rhythm GI normal to inspection, nondistended, normoactive bowel sounds, non-tender and non-distended Extremity normal capillary refill General Extremity: Negative for edema Skin no rashes or lesions noted General Skin Exam: no breakdown Psych affect normal Appearance: appropriate Weight / BMI Weight Weight: 48.943 kg Body Mass Index (BMI) 15.0 ABG / Lab / Microbiology Data 04/10/25 06:42 04/10/25 06:42 D/C Instructions Discharge Activity: Return to Normal Activity Weight Bearing Status: Weight bearing as tolerated DC O2, CPAP, BIPAP Needs Home O2 Discharge instructions: No Additional Instructions: Discharge to Inpatient hospice 04/12/2025 for end of life care. Please Follow Up With: Arnold Avitia MD Meaningful Use Info Meaningful Use Meaningful Use Diagnoses (Choose all that apply): None applicable Discharge Plan Admission Admit Date/Time: 04/09/25 11:24 Primary Reason for Your Visit: Debility. Attending Provider: Joshua Matson Chi Primary Care Provider: Viola Phelps NP Consulting Providers: Arsen Wylie; Audrey Santoyo; Frances Joseph; Carina Hicks; Danna Hunter COPY CAMERA OPERATOR; Kell Campos Instructions Additional Instructions / Restrictions: Discharge to Inpatient hospice 04/12/2025 for end of life care. Discharge Orders/Prescriptions Prescriptions: No Action levothyroxine 50 mcg tablet 50 mcg PO DAILY tizanidine 2 mg Tablet 4 mg PO Q8H PRN PRN (Reason: spasms/musculoskeletal pain) Qty: 0 0RF acetaminophen 500 mg Tablet 1,000 mg PO Q8 Qty: 0 0RF docusate sodium 100 mg Capsule 100 mg PO DAILY Qty: 0 0RF oxycodone 5 mg Tablet 5 mg PO Q4H PRN PRN (Reason: Pain Score 4-10) 1 Days Qty: 3 0RF Referrals / Follow Up: Viola Phelps NP, COPY CAMERA OPERATOR-C [Primary Care Provider] - Disposition Disposition (needs filled in before D/C Order can be placed): Hospice in Medical Facility
--- NOTE | 2025-04-20 12:57 | MDS.RN ---
Information for the MDS was obtained from review of the clinical record, interview of resident, staff, and direct observation of resident?s care.
--- NOTE | 2025-06-04 10:17 | CASEMGMT ---
Social work SW received call from Austin with [employer] (ph: [phone]) asking if patient had discharged home after being at [facility] in March 2025. Based on MCKINLEY Ruiz's documentation, this SW expressed to Austin that it appeared patient discharged to [facility]. Austin stated intent to call [facility] to verify if patient's case needed opened or not. Austin expressed no further needs at this time. Kamala Sullivan, CREDIT REPORT CHECKER, INDUSTRIAL ROOFER HELPER
== END 2025-04-12 19:10 | disposition hospice, inpatient (51) | DRG 56 ==
PROVIDERS: Admitting Provider Family Medicine Geriatric Medicine; PCP Registered Nurse; Visit Provider Family Medicine Geriatric Medicine
DX: G20.A1 Parkinson's disease without dyskinesia, without mention of fluctuations (principal); E43 Unspecified severe protein-calorie malnutrition; Z68.1 Body mass index [BMI] 19.9 or less, adult; E03.9 Hypothyroidism, unspecified; F32.A Depression, unspecified; E87.6 Hypokalemia; F41.9 Anxiety disorder, unspecified; W19.XXXD Unspecified fall, subsequent encounter; M62.838 Other muscle spasm; S12.9XXD Fracture of neck, unspecified, subsequent encounter; Z79.890 Hormone replacement therapy; Z87.891 Personal history of nicotine dependence; M81.8 Other osteoporosis without current pathological fracture; Z79.899 Other long term (current) drug therapy; G47.00 Insomnia, unspecified
CPT/HCPCS: 36415; 80048; 85025; 97162; 97166; 97530; 97802